=== PATIENT | male | born 1985 ===

== ENCOUNTER 2021-12-20 23:10 | Inpatient (IN) | payer SELFPAY ==
[2021-12-20] MEDS ORDERED: SODIUM CHLORIDE 0.9% 1000 ML 1,000 ML IV ONE (23:19)
[2021-12-20] MEDS ORDERED: diphenhydrAMINE 50 MG/ML VIAL IV ONE (23:19)
[2021-12-20] MEDS ORDERED: methylPREDNISolone Sod Succinate 125 MG/2 ML INJ IV ONE (23:20)
[2021-12-20] MEDS ORDERED: MORPHINE 4 MG/1 ML INJ IV ONE (23:20)
--- NOTE | 2021-12-20 23:32 | Emergency Department Report ---
ED Allergic Reaction HPI - General Chief complaint: Allergic Reaction Stated complaint: ALTERED Time Seen by Provider: 12/20/21 23:19 Source: patient Mode of arrival: Ambulatory Limitations: Language Barrier - History of Present Illness Initial Comments: Patient is a 36-year-old male presenting with complaint of adverse drug reaction. He reportedly received an IM penicillin shot in his left thigh earlier today for a "sore throat "with the exact time unknown. He reportedly collapsed while checking in to the emergency department. He complains of severe 10 out of 10 pain in his left thigh and has noticeable mottling of skin in his thigh and left lower abdomen. He denies shortness of breath, oral swelling or itching. Reports history of buttock injections performed in [place] in 2017. MD Complaint: allergic reaction Exposure: medication Symptoms: other (Pain in left thigh/leg) Treatment Prior to Arrival: none - Related Data Allergies Allergy/AdvReac Type Severity Reaction Status Date / Time No Known Allergies Allergy Verified 12/20/21 23:32 ED Review of Systems ROS: Stated complaint: ALTERED Other details as noted in HPI Constitutional: denies: chills, fever Respiratory: denies: cough, shortness of breath, wheezing Cardiovascular: denies: chest pain, palpitations Gastrointestinal: denies: abdominal pain, nausea, diarrhea ED Past Medical Hx - Social History Smoking Status: Unknown if ever smoked ED Physical Exam - General Limitations: Language Barrier General appearance: alert, in distress - Head Head exam: Present: atraumatic, normocephalic - Eye Eye exam: Present: normal appearance - ENT ENT exam: Present: normal orophraynx, mucous membranes moist - Neck Neck exam: Present: normal inspection - Respiratory Respiratory exam: Present: normal lung sounds bilaterally. Absent: respiratory distress, wheezes - Cardiovascular Cardiovascular Exam: Present: normal rhythm, tachycardia, normal heart sounds - GI/Abdominal GI/Abdominal exam: Present: soft, normal bowel sounds. Absent: tenderness - Rectal Rectal exam: Present: deferred - Neurological Exam Neurological exam: Present: alert, oriented X3, CN II-XII intact - Psychiatric Psychiatric exam: Present: normal affect, normal mood - Skin Skin exam: Present: warm, dry, intact, normal color, rash (Reticular/lacy rash to left lower abdomen and left thigh) ED Course Vital Signs 12/20/21 12/21/21 12/21/21 23:11 00:05 00:08 Temperature 98.6 F Pulse Rate 110 H 92 H Respiratory 24 29 H 36 H Rate Blood Pressure 174/94 Blood Pressure [Right] O2 Sat by Pulse 100 100 Oximetry 12/21/21 12/21/21 12/21/21 00:11 00:12 00:16 Temperature 99.0 F Pulse Rate 92 H 90 Respiratory 30 H 30 H 26 H Rate Blood Pressure 167/102 Blood Pressure 160/103 [Right] O2 Sat by Pulse 100 100 99 Oximetry 12/21/21 12/21/21 12/21/21 00:30 00:35 00:46 Temperature Pulse Rate 91 H 86 Respiratory 21 23 27 H Rate Blood Pressure 170/98 162/99 Blood Pressure [Right] O2 Sat by Pulse 98 100 Oximetry 12/21/21 12/21/21 12/21/21 01:00 01:16 01:30 Temperature Pulse Rate 92 H 97 H 95 H Respiratory 35 H 19 21 Rate Blood Pressure 162/99 162/99 162/99 Blood Pressure [Right] O2 Sat by Pulse 94 98 99 Oximetry 12/21/21 12/21/21 12/21/21 01:46 02:00 02:16 Temperature Pulse Rate 107 H 106 H 109 H Respiratory 32 H 16 15 Rate Blood Pressure 162/99 153/95 146/78 Blood Pressure [Right] O2 Sat by Pulse 99 98 98 Oximetry 12/21/21 12/21/21 12/21/21 02:30 02:46 03:00 Temperature Pulse Rate 109 H 102 H 107 H Respiratory 22 24 13 Rate Blood Pressure 134/72 135/72 147/92 Blood Pressure [Right] O2 Sat by Pulse 97 98 98 Oximetry 12/21/21 12/21/21 12/21/21 03:13 03:16 03:30 Temperature Pulse Rate 104 H 104 H Respiratory 26 H 25 H 32 H Rate Blood Pressure 139/72 138/77 Blood Pressure [Right] O2 Sat by Pulse 84 93 Oximetry 12/21/21 12/21/21 12/21/21 03:43 03:46 03:59 Temperature 98.9 F Pulse Rate 106 H Respiratory 32 H 31 H Rate Blood Pressure 147/78 Blood Pressure [Right] O2 Sat by Pulse 94 Oximetry 12/21/21 12/21/21 12/21/21 04:00 04:16 04:30 Temperature 98.9 F Pulse Rate 105 H 117 H 98 H Respiratory 30 H 23 19 Rate Blood Pressure 143/81 133/79 139/73 Blood Pressure [Right] O2 Sat by Pulse 93 93 94 Oximetry 12/21/21 12/21/21 12/21/21 04:54 05:00 05:16 Temperature Pulse Rate 102 H 104 H 109 H Respiratory 27 H 28 H 21 Rate Blood Pressure 139/73 139/73 140/78 Blood Pressure [Right] O2 Sat by Pulse 96 96 96 Oximetry 12/21/21 05:20 Temperature 98.0 F Pulse Rate Respiratory Rate Blood Pressure Blood Pressure [Right] O2 Sat by Pulse Oximetry ED Medical Decision Making - Lab Data Result diagrams: 12/20/21 23:35 12/20/21 23:35 - Medical Decision Making 36-year-old male presenting with complaint of cute onset left thigh pain. Initial assessment reveals mottling of skin involving the proximal thigh and left lower abdomen. Patient is in severe pain. He was given IV morphine followed by IV Dilaudid. Ultrasound obtained and negative for DVT. WBC count 14,000. CT of the left leg performed. Possibly cellulitis. No drainable fluid collection present. Will start on empiric antibiotics and admit to hospitalist service with surgery consult. Critical care attestation.: If time is entered above; I have spent that time in minutes in the direct care of this critically ill patient, excluding procedure time. ED Disposition Clinical Impression: Left leg pain, Complication of surgery Disposition: ADMITTED INPATIENT Is pt being admited?: Yes Condition: Stable
[2021-12-21] MEDS ORDERED: HYDROmorphone 1 MG/1 ML INJ IV ONE ×2 (00:02→03:05)
[2021-12-21] MEDS ORDERED: HYDROmorphone 1 MG/1 ML INJ ONE ×2 (00:03→16:37)
[2021-12-21 00:23] LABS: Hematocrit 46.9 % (35.5-45.6); Hemoglobin 15.8 gm/dl (11.8-15.2); Mean Corpuscular HGB Conc 34 % (32-34); Mean Corpuscular Volume 98 fl (84-94); Platelet Count 217 K/mm3 (140-440); Red Blood Count 4.77 M/mm3 (3.65-5.03); Red Cell Distribution Width 13.2 % (13.2-15.2)
[2021-12-21 00:28] LABS: Alanine Aminotransferase 31 units/L (7-56); Albumin 4.6 g/dL (3.9-5); BUN/Creatinine Ratio 13; Blood Urea Nitrogen 14 mg/dL (9-20); Calcium 9.3 mg/dL (8.4-10.2); Hemolysis Index 8
[2021-12-21 01:39] LABS: Basophils % (Manual) 0 % (0.0-1.8); Eosinophils % (Manual) 0 % (0.0-4.3); Total Cells Counted 100
[2021-12-21 01:40] LABS: Platelet Estimate Consistent w Auto; RBC Morphology Normal
--- NOTE | 2021-12-21 03:37 | Vascular Lab Report ---
DUPLEX DOPPLER LOWER EXTREMITY VEINS, LEFT INDICATION / CLINICAL INFORMATION: Leg pain. TECHNIQUE: Duplex doppler imaging was performed through the veins of the left lower extremity using v enous compression and other maneuvers. COMPARISON: None available. FINDINGS: LEFT COMMON FEMORAL VEIN: Negative. LEFT FEMORAL VEIN: Negative. LEFT POPLITEAL VEIN: Negative. LEFT CALF VEINS: Negative. ADDITIONAL FINDINGS: None. IMPRESSION: 1. No sonographic evidence for DVT in the left lower extremity. Signer Name: Anthony Pina II, MD Signed: 12/21/2021 3:33 AM Workstation Name: [id number]
--- NOTE | 2021-12-21 05:23 | Cat Scan Report ---
CT lower extremity LT w con INDICATION / CLINICAL INFORMATION: Pt complains of LEFT lower extremity pain, discoloration since hav ing a Penicillin Shot yesterday. COMPARISON: None available. TECHNIQUE: Following administration of 100 cc Omnipaque 350 intravenous contrast, CT imaging of the l eft hip and femur was performed. In addition to axial source images, coronal and sagittal MPR series were provided. All CT scans at this location are performed using CT dose reduction for ALARA by means of automated exposure control. FINDINGS: Particular attenuation subcutaneous fat is demonstrated posteriorly and posterolaterally around the g luteus medius muscle. Somewhat more nodular foci of attenuation are present as is minimal dermal thic kening. Otherwise, no significant abnormality of the included musculature, osseous structures, or int ra-abdominal/intrapelvic structures. IMPRESSION: 1. The appearance of the posterior soft tissues could reflect evidence of cellulitis with small subcu taneous lymph nodes. No drainable fluid collections are present. Contusion could have a similar appea kang. Correlation recommended. Signer Name: Anthony Pina II, MD Signed: 12/21/2021 5:19 AM Workstation Name: [id number]
[2021-12-21] MEDS ORDERED: PIPERACILLIN/TAZOBACTAM 3.375 3.375 GM/50 ML BAG IV ONE (05:55)
[2021-12-21] MEDS ORDERED: ALBUTEROL 2.5 MG/3 ML NEBU IH PRN (06:15)
--- NOTE | 2021-12-21 06:21 | History and Physical Report ---
History of Present Illness Date of examination: 12/21/21 Date of admission: 12/21/21 Chief complaint: Allergic reaction Left leg pain Complication of surgery History of present illness: 36-year-old male with no significant past medical history was brought to the emergency room because of adverse drug reaction. He reportedly received an IM penicillin shot in his left thigh earlier today for a "sore throat "with the exact time unknown. He reportedly collapsed while checking in to the emergency department. He complains of severe 10 out of 10 pain in his left thigh and has noticeable mottling of skin in his thigh and left lower abdomen. He denies shortness of breath, oral swelling or itching. Reports history of buttock injections performed in [place] in 2017. CT of the left leg performed. Possibly cellulitis. No drainable fluid collection present. Will start on empiric antibiotics and admit to hospitalist service with surgery consult. Past History Past Surgical History: Other (Buttock injection performed in [place] in 2016) Social history: other (Unknown) Family history: no significant family history Medications and Allergies Allergies Allergy/AdvReac Type Severity Reaction Status Date / Time No Known Allergies Allergy Verified 12/20/21 23:32 Active Meds: Active Medications Piperacillin Sod/Tazobactam Sod (Zosyn/Ns 3.375gm/50ml) 3.375 gm in 50 mls @ 100 mls/hr IV ONCE ONE; Protocol Stop: 12/21/21 06:24 Review of Systems All systems: negative Constitutional: other (Mottling of the skin in the thigh and left lower abdomen) Exam - Constitutional Vitals: Temp Pulse Resp BP Pulse Ox 98.0 F 109 H 21 140/78 96 12/21/21 05:20 12/21/21 05:16 12/21/21 05:16 12/21/21 05:16 12/21/21 05:16 General appearance: Present: no acute distress, well-nourished - EENT Eyes: Present: PERRL ENT: hearing intact, clear oral mucosa - Neck Neck: Present: supple, normal ROM - Respiratory Respiratory effort: normal Respiratory: bilateral: CTA - Cardiovascular Heart Sounds: Present: S1 & S2. Absent: rub, click - Extremities Extremities: pulses symmetrical, No edema Peripheral Pulses: within normal limits - Abdominal General gastrointestinal: Present: soft, non-tender, non-distended, normal bowel sounds Male genitourinary: Present: normal - Integumentary Integumentary: Present: clear, warm, dry - Musculoskeletal Musculoskeletal: gait normal, strength equal bilaterally - Psychiatric Psychiatric: appropriate mood/affect, intact judgment & insight - Neurologic Neurologic: CNII-XII intact, moves all extremities Results - Labs CBC & Chem 7: 12/20/21 23:35 12/20/21 23:35 Labs: Laboratory Last Values WBC 14.0 K/mm3 (4.5-11.0) H 12/20/21 23:35 RBC 4.77 M/mm3 (3.65-5.03) 12/20/21 23:35 Hgb 15.8 gm/dl (11.8-15.2) H 12/20/21 23:35 Hct 46.9 % (35.5-45.6) H 12/20/21 23:35 MCV 98 fl (84-94) H 12/20/21 23:35 MCH 33 pg (28-32) H 12/20/21 23:35 MCHC 34 % (32-34) 12/20/21 23:35 RDW 13.2 % (13.2-15.2) 12/20/21 23:35 Plt Count 217 K/mm3 (140-440) 12/20/21 23:35 Lymph # (Auto) [employer] 12/20/21 23:35 Add Manual Diff Complete 12/20/21 23:35 Total Counted 100 12/20/21 23:35 Seg Neuts % (Manual) 52.0 % (40.0-70.0) 12/20/21 23:35 Band Neutrophils % 0 % 12/20/21 23:35 Lymphocytes % (Manual) 41.0 % (13.4-35.0) H 12/20/21 23:35 Reactive Lymphs % (Man) 0 % 12/20/21 23:35 Monocytes % (Manual) 7.0 % (0.0-7.3) 12/20/21 23:35 Eosinophils % (Manual) 0 % (0.0-4.3) 12/20/21 23:35 Basophils % (Manual) 0 % (0.0-1.8) 12/20/21 23:35 Metamyelocytes % 0 % 12/20/21 23:35 Myelocytes % 0 % 12/20/21 23:35 Promyelocytes % 0 % 12/20/21 23:35 Blast Cells % 0 % 12/20/21 23:35 Nucleated RBC % Not Reportable 12/20/21 23:35 Seg Neutrophils # Man 7.3 K/mm3 (1.8-7.7) 12/20/21 23:35 Band Neutrophils # 0.0 K/mm3 12/20/21 23:35 Lymphocytes # (Manual) 5.7 K/mm3 (1.2-5.4) H 12/20/21 23:35 Abs React Lymphs (Man) 0.0 K/mm3 12/20/21 23:35 Monocytes # (Manual) 1.0 K/mm3 (0.0-0.8) H 12/20/21 23:35 Eosinophils # (Manual) 0.0 K/mm3 (0.0-0.4) 12/20/21 23:35 Basophils # (Manual) 0.0 K/mm3 (0.0-0.1) 12/20/21 23:35 Metamyelocytes # 0.0 K/mm3 12/20/21 23:35 Myelocytes # 0.0 K/mm3 12/20/21 23:35 Promyelocytes # 0.0 K/mm3 12/20/21 23:35 Blast Cells # 0.0 K/mm3 12/20/21 23:35 WBC Morphology Not Reportable 12/20/21 23:35 Hypersegmented Neuts Not Reportable 12/20/21 23:35 Hyposegmented Neuts Not Reportable 12/20/21 23:35 Hypogranular Neuts Not Reportable 12/20/21 23:35 Smudge Cells Not Reportable 12/20/21 23:35 Toxic Granulation Not Reportable 12/20/21 23:35 Toxic Vacuolation Not Reportable 12/20/21 23:35 Dohle Bodies Not Reportable 12/20/21 23:35 Pelger-Huet Anomaly Not Reportable 12/20/21 23:35 [place] Rods Not Reportable 12/20/21 23:35 Platelet Estimate Consistent w auto 12/20/21 23:35 Clumped Platelets Not Reportable 12/20/21 23:35 Plt Clumps, EDTA Not Reportable 12/20/21 23:35 Large Platelets Not Reportable 12/20/21 23:35 Giant Platelets Not Reportable 12/20/21 23:35 Platelet Satelliting Not Reportable 12/20/21 23:35 Plt Morphology Comment Not Reportable 12/20/21 23:35 RBC Morphology Normal 12/20/21 23:35 Dimorphic RBCs Not Reportable 12/20/21 23:35 Polychromasia Not Reportable 12/20/21 23:35 Hypochromasia Not Reportable 12/20/21 23:35 Poikilocytosis Not Reportable 12/20/21 23:35 Anisocytosis Not Reportable 12/20/21 23:35 Microcytosis Not Reportable 12/20/21 23:35 Macrocytosis Not Reportable 12/20/21 23:35 Spherocytes Not Reportable 12/20/21 23:35 Pappenheimer Bodies Not Reportable 12/20/21 23:35 Sickle Cells Not Reportable 12/20/21 23:35 Target Cells Not Reportable 12/20/21 23:35 Tear Drop Cells Not Reportable 12/20/21 23:35 Ovalocytes Not Reportable 12/20/21 23:35 Helmet Cells Not Reportable 12/20/21 23:35 [place] Bodies Not Reportable 12/20/21 23:35 [place] Rings Not Reportable 12/20/21 23:35 [place] Cells Not Reportable 12/20/21 23:35 Bite Cells Not Reportable 12/20/21 23:35 Crenated Cell Not Reportable 12/20/21 23:35 Elliptocytes Not Reportable 12/20/21 23:35 Acanthocytes (Spur) Not Reportable 12/20/21 23:35 Rouleaux Not Reportable 12/20/21 23:35 Hemoglobin C Crystals Not Reportable 12/20/21 23:35 Schistocytes Not Reportable 12/20/21 23:35 Malaria parasites Not Reportable 12/20/21 23:35 [place] Bodies Not Reportable 12/20/21 23:35 Hem Pathologist Commnt No 12/20/21 23:35 Sodium 139 mmol/L (137-145) 12/20/21 23:35 Potassium 3.3 mmol/L (3.6-5.0) L 12/20/21 23:35 Chloride 99.3 mmol/L (98-107) 12/20/21 23:35 Carbon Dioxide 18 mmol/L (22-30) L 12/20/21 23:35 Anion Gap 25 mmol/L 12/20/21 23:35 BUN 14 mg/dL (9-20) 12/20/21 23:35 Creatinine 1.1 mg/dL (0.8-1.3) 12/20/21 23:35 Estimated GFR > 60 ml/min 12/20/21 23:35 BUN/Creatinine Ratio 13 % 12/20/21 23:35 Glucose 171 mg/dL (75-100) H 12/20/21 23:35 Calcium 9.3 mg/dL (8.4-10.2) 12/20/21 23:35 Total Bilirubin 0.40 mg/dL (0.1-1.2) 12/20/21 23:35 AST 31 units/L (5-40) 12/20/21 23:35 ALT 31 units/L (7-56) 12/20/21 23:35 Alkaline Phosphatase 86 units/L (35-129) 12/20/21 23:35 Total Protein 7.2 g/dL (6.3-8.2) 12/20/21 23:35 Albumin 4.6 g/dL (3.9-5) 12/20/21 23:35 Albumin/Globulin Ratio 1.8 % 12/20/21 23:35 Assessment and Plan VTE prophylaxis?: Chemical Plan of care discussed with patient/family: Yes - Patient Problems (1) Left leg cellulitis Current Visit: Yes Status: Acute Plan to address problem: Admit the patient to the medical floor. Levaquin 750 mg IV daily. Half-normal saline at the rate of 125 cc/h. Surgery evaluation. Recheck CBC in the morning (2) Allergic reaction Current Visit: Yes Status: Acute Plan to address problem: Pepcid 20 mg IV every 12 hours. Benadryl 25 mg IV every 6 hours as needed. If needed will start on Solu-Medrol. Consult dermatology if needed (3) Complication of surgery Current Visit: Yes Status: Acute Plan to address problem: Levaquin 750 mg IV daily. Half-normal saline at the rate of 125 cc/h. Surgery evaluation. Recheck CBC in the morning (4) Left leg pain Current Visit: Yes Status: Acute Plan to address problem: Tylenol 650 mg p.o. every 6 hours as needed. Morphine 2 mg IV every 4 hours as needed (5) DVT prophylaxis Current Visit: Yes Status: Acute Plan to address problem: Heparin 5000 units subcu every 12 hours for DVT prophylaxis. Pepcid 20 mg IV every 12 hours for GI prophylaxis. Patient is a full code
[2021-12-21] MEDS: MORPHINE 2 MG/1 ML INJ IV PRN (06:48)
[2021-12-21] MEDS: HYDROmorphone 1 MG/1 ML INJ IV PRN ×5 (08:07→22:11)
[2021-12-21] MEDS: FAMOTIDINE 20 MG/2 ML INJ IV SCH ×2 (11:41→22:07)
[2021-12-21] MEDS: HEPARIN 5,000 UNIT/1 ML VIAL SUB-Q SCH ×2 (11:42→22:07)
--- NOTE | 2021-12-21 12:02 | Consultation ---
History of Present Illness - Reason for Consult Consult date: 12/21/21 LLE mottling Requesting physician: ALEXANDRA LUIS - History of Present Illness 36-year-old male who appears to be mixed gender/undergoing gender transformation with previous history of silicone injections in the buttocks who recently had a sore throat and decided to inject his left thigh with a 5 mL container of Rocephin with lidocaine. Afterwards he had significant pain with mottling of this thigh and left abdomen. The left abdominal mottling has improved. The left thigh mottling is still present and has now extended to the calf. The patient has no significant pain at this time with pressure applied to the left thigh and left calf with no complaints of pain. There is numbness of part of the left calf and foot with foot drop and inability to move the toes. This is worsened since earlier today. Palpable pedal pulses bilaterally. Venous ultrasound demonstrates no DVT. CT demonstrates no collections. No crepitus in the skin. There is some left thigh and left calf mottling but temperature is normal. Past History Past Surgical History: Other (Buttock injection performed in [place] in 2017) Social history: other (Unknown) Family history: no significant family history Medications and Allergies Allergies Allergy/AdvReac Type Severity Reaction Status Date / Time Penicillins Allergy Unknown Verified 12/21/21 07:27 Active Meds: Active Medications Acetaminophen (Acetaminophen 325 Mg Tab) 650 mg PO Q4H PRN PRN Reason: Pain MILD(1-3)/Fever >100.5/LEVINE Albuterol (Albuterol 2.5 Mg/3 Ml Nebu) 2.5 mg IH Q3HRT PRN PRN Reason: Shortness Of Breath Albuterol/Ipratropium (Ipratropium/Albuterol Sulfate 3 Ml Ampul.Neb) 1 ampul IH Q6HRT [facility] Diphenhydramine HCl (Diphenhydramine 50 Mg/Ml Vial) 25 mg IV Q6H PRN PRN Reason: Skin Irritation Famotidine (Famotidine 20 Mg/2 Ml Inj) 20 mg IV BID [facility] Last Admin: 12/21/21 11:41 Dose: Not Given Heparin Sodium (Porcine) (Heparin 5,000 Unit/1 Ml Vial) 5,000 unit SUB-Q Q12HR [facility] Last Admin: 12/21/21 11:42 Dose: Not Given Hydromorphone HCl (Hydromorphone 1 Mg/1 Ml Inj) 0.5 mg IV Q3H PRN PRN Reason: Pain , Severe (7-10) Last Admin: 12/21/21 08:07 Dose: 0.5 mg Sodium Chloride (Nacl 0.45% 1000 Ml) 1,000 mls @ 125 mls/hr IV DIRECT [facility] Levofloxacin/Dextrose (Levaquin 750mg/150ml) 750 mg in 150 mls @ 100 mls/hr IV Q24H [facility]; Protocol Last Admin: 12/21/21 08:06 Dose: 100 mls/hr Morphine Sulfate (Morphine 2 Mg/1 Ml Inj) 2 mg IV Q4H PRN PRN Reason: Pain, Moderate (4-6) Last Admin: 12/21/21 06:48 Dose: 2 mg Ondansetron HCl (Ondansetron 4 Mg/2 Ml Inj) 4 mg IV Q8H PRN PRN Reason: Nausea And Vomiting Sodium Chloride (Sodium Chloride 0.9% 10 Ml Flush Syringe) 10 ml IV BID [facility] Last Admin: 12/21/21 11:42 Dose: Not Given Sodium Chloride (Sodium Chloride 0.9% 10 Ml Flush Syringe) 10 ml IV PRN PRN PRN Reason: LINE FLUSH Review of Systems All systems: negative (see HPI) Exam - Constitutional Vitals: Temp Pulse Resp BP Pulse Ox 98.0 F 111 H 26 H 143/90 95 12/21/21 05:20 12/21/21 11:30 12/21/21 11:30 12/21/21 11:30 12/21/21 11:30 General appearance: Present: no acute distress - EENT Eyes: Present: EOM intact ENT: hearing intact - Respiratory Respiratory effort: normal - Extremities Extremities: normal temperature, abnormal (see HPI) - Abdominal General gastrointestinal: Present: soft, non-tender, other (no mottling) - Psychiatric Psychiatric: appropriate mood/affect, cooperative - Neurologic Neurologic: focal deficits (left calf neuropathy) Results - Labs CBC & Chem 7: 12/20/21 23:35 12/20/21 23:35 Labs: Abnormal lab results 12/20/21 12/20/21 Range/Units 23:35 23:35 WBC 14.0 H (4.5-11.0) K/mm3 Hgb 15.8 H (11.8-15.2) gm/dl Hct 46.9 H (35.5-45.6) % MCV 98 H (84-94) fl MCH 33 H (28-32) pg Lymphocytes % (Manual) 41.0 H (13.4-35.0) % Lymphocytes # (Manual) 5.7 H (1.2-5.4) K/mm3 Monocytes # (Manual) 1.0 H (0.0-0.8) K/mm3 Potassium 3.3 L (3.6-5.0) mmol/L Carbon Dioxide 18 L (22-30) mmol/L Glucose 171 H (75-100) mg/dL Assessment and Plan 36-year-old male with allergic reaction to Rocephin injected yesterday who now has mottling of the left abdomen which resolved and mottling of the left thigh w hich has worsened to the left calf. The left calf is soft and not painful. No compartment syndrome. There is a mottling that happen near immediately after the injection per patient which occurred on the left abdomen and left thigh and has progressed on the left lower extremity but resolved on the left abdomen. Suspect allergic reaction as it occurred near immediately. Infection is less likely as this would not occur immediately and would have more pain associated with it as the patient does not complain of any discomfort with deep palpation and superficial palpation of the left leg. 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 Unclear cause of the neuropathy. Could be allergic reaction as well. Consider neurology consult. Recommend aggressive treatment for presumed allergic reaction.
--- NOTE | 2021-12-21 12:06 | Progress Note ---
Assessment and Plan Assessment and plan: --Left lower extremity cellulitis Elevate the limb, empiric antibiotics cultures, cultures Supportive care --Possible allergic reaction ; to Rocephin Continue Benadryl, high-dose steroids, Pepcid Supportive care -- Possible compartment syndrome ; Elevate the limb, IV antibiotics, vascular/IR consulted, discussed with Dr. Swann IR evaluated, CT lower extremity findings reviewed Left lower extremity arterial Doppler, venous Doppler reviewed --Left leg severe pain; Pain medications, elevate the limb, supportive care --Transaminitis/acute hepatic injury; Monitor liver function tests, Ultrasound abdomen GI consult, acute hepatitis panel --DVT prophylaxis Subcu Heparin 5000 held pending's vascular procedure --obesity; BMI 30.7; Patient needs weight reduction when medically stable -- Full CODE STATUS; We will closely monitor the patient and adjust management as needed Plan of care reviewed with the patient, family member at the bedside and the nurse I discussed extensively with vascular/IR Dr. Swann I also informed neurology Dr. Joe Aguilar Patient will be closely observed in IMCU overnight postprocedure per vascular recommendations. History Interval history: I have seen and examined the patient at the bedside, this morning patient's chart and medications reviewed patient was admitted with Left lower extremity cellulitis/allergic reaction to some intramuscular injection. Patient complains of severe pain in the right lower extremity Patient is in mild distress vital signs reviewed Hospitalist Physical - Constitutional Vitals: Temp Pulse Resp BP Pulse Ox 98.0 F 111 H 26 H 143/90 95 12/21/21 05:20 12/21/21 11:30 12/21/21 11:30 12/21/21 11:30 12/21/21 11:30 General appearance: Present: mild distress, well-nourished, obese - EENT Eyes: Present: PERRL, EOM intact ENT: hearing intact, clear oral mucosa - Neck Neck: Present: supple, normal ROM - Respiratory Respiratory effort: normal Respiratory: bilateral: diminished, negative: rales, rhonchi, wheezing - Cardiovascular Rhythm: regular Heart Sounds: Present: S1 & S2 - Extremities Extremities: abnormal (Left lower extremity swelling, erythema and mottling, tender to palpation) Extremity abnormal: other (Unable to move left toes and foot) - Abdominal General gastrointestinal: soft, non-tender, non-distended, normal bowel sounds - Integumentary Integumentary: Present: clear, warm - Psychiatric Psychiatric: appropriate mood/affect, cooperative - Neurologic Neurologic: other (Left lower extremity neuropathy, unable to move left foot and toes) Results - Labs CBC & Chem 7: 12/21/21 13:30 12/21/21 13:30 Labs: Laboratory Last Values WBC 14.0 K/mm3 (4.5-11.0) H 12/20/21 23:35 RBC 4.77 M/mm3 (3.65-5.03) 12/20/21 23:35 Hgb 15.8 gm/dl (11.8-15.2) H 12/20/21 23:35 Hct 46.9 % (35.5-45.6) H 12/20/21 23:35 MCV 98 fl (84-94) H 12/20/21 23:35 MCH 33 pg (28-32) H 12/20/21 23:35 MCHC 34 % (32-34) 12/20/21 23:35 RDW 13.2 % (13.2-15.2) 12/20/21 23:35 Plt Count 217 K/mm3 (140-440) 12/20/21 23:35 Lymph # (Auto) Primary Care Coordinator 12/20/21 23:35 Add Manual Diff Complete 12/20/21 23:35 Total Counted 100 12/20/21 23:35 Seg Neuts % (Manual) 52.0 % (40.0-70.0) 12/20/21 23:35 Band Neutrophils % 0 % 12/20/21 23:35 Lymphocytes % (Manual) 41.0 % (13.4-35.0) H 12/20/21 23:35 Reactive Lymphs % (Man) 0 % 12/20/21 23:35 Monocytes % (Manual) 7.0 % (0.0-7.3) 12/20/21 23:35 Eosinophils % (Manual) 0 % (0.0-4.3) 12/20/21 23:35 Basophils % (Manual) 0 % (0.0-1.8) 12/20/21 23:35 Metamyelocytes % 0 % 12/20/21 23:35 Myelocytes % 0 % 12/20/21 23:35 Promyelocytes % 0 % 12/20/21 23:35 Blast Cells % 0 % 12/20/21 23:35 Nucleated RBC % Not Reportable 12/20/21 23:35 Seg Neutrophils # Man 7.3 K/mm3 (1.8-7.7) 12/20/21 23:35 Band Neutrophils # 0.0 K/mm3 12/20/21 23:35 Lymphocytes # (Manual) 5.7 K/mm3 (1.2-5.4) H 12/20/21 23:35 Abs React Lymphs (Man) 0.0 K/mm3 12/20/21 23:35 Monocytes # (Manual) 1.0 K/mm3 (0.0-0.8) H 12/20/21 23:35 Eosinophils # (Manual) 0.0 K/mm3 (0.0-0.4) 12/20/21 23:35 Basophils # (Manual) 0.0 K/mm3 (0.0-0.1) 12/20/21 23:35 Metamyelocytes # 0.0 K/mm3 12/20/21 23:35 Myelocytes # 0.0 K/mm3 12/20/21 23:35 Promyelocytes # 0.0 K/mm3 12/20/21 23:35 Blast Cells # 0.0 K/mm3 12/20/21 23:35 WBC Morphology Not Reportable 12/20/21 23:35 Hypersegmented Neuts Not Reportable 12/20/21 23:35 Hyposegmented Neuts Not Reportable 12/20/21 23:35 Hypogranular Neuts Not Reportable 12/20/21 23:35 Smudge Cells Not Reportable 12/20/21 23:35 Toxic Granulation Not Reportable 12/20/21 23:35 Toxic Vacuolation Not Reportable 12/20/21 23:35 Dohle Bodies Not Reportable 12/20/21 23:35 Pelger-Huet Anomaly Not Reportable 12/20/21 23:35 [place] Rods Not Reportable 12/20/21 23:35 Platelet Estimate Consistent w auto 12/20/21 23:35 Clumped Platelets Not Reportable 12/20/21 23:35 Plt Clumps, EDTA Not Reportable 12/20/21 23:35 Large Platelets Not Reportable 12/20/21 23:35 Giant Platelets Not Reportable 12/20/21 23:35 Platelet Satelliting Not Reportable 12/20/21 23:35 Plt Morphology Comment Not Reportable 12/20/21 23:35 RBC Morphology Normal 12/20/21 23:35 Dimorphic RBCs Not Reportable 12/20/21 23:35 Polychromasia Not Reportable 12/20/21 23:35 Hypochromasia Not Reportable 12/20/21 23:35 Poikilocytosis Not Reportable 12/20/21 23:35 Anisocytosis Not Reportable 12/20/21 23:35 Microcytosis Not Reportable 12/20/21 23:35 Macrocytosis Not Reportable 12/20/21 23:35 Spherocytes Not Reportable 12/20/21 23:35 Pappenheimer Bodies Not Reportable 12/20/21 23:35 Sickle Cells Not Reportable 12/20/21 23:35 Target Cells Not Reportable 12/20/21 23:35 Tear Drop Cells Not Reportable 12/20/21 23:35 Ovalocytes Not Reportable 12/20/21 23:35 Helmet Cells Not Reportable 12/20/21 23:35 [place] Bodies Not Reportable 12/20/21 23:35 [place] Rings Not Reportable 12/20/21 23:35 [place] Cells Not Reportable 12/20/21 23:35 Bite Cells Not Reportable 12/20/21 23:35 Crenated Cell Not Reportable 12/20/21 23:35 Elliptocytes Not Reportable 12/20/21 23:35 Acanthocytes (Spur) Not Reportable 12/20/21 23:35 Rouleaux Not Reportable 12/20/21 23:35 Hemoglobin C Crystals Not Reportable 12/20/21 23:35 Schistocytes Not Reportable 12/20/21 23:35 Malaria parasites Not Reportable 12/20/21 23:35 [place] Bodies Not Reportable 12/20/21 23:35 Hem Pathologist Commnt No 12/20/21 23:35 Sodium 139 mmol/L (137-145) 12/20/21 23:35 Potassium 3.3 mmol/L (3.6-5.0) L 12/20/21 23:35 Chloride 99.3 mmol/L (98-107) 12/20/21 23:35 Carbon Dioxide 18 mmol/L (22-30) L 12/20/21 23:35 Anion Gap 25 mmol/L 12/20/21 23:35 BUN 14 mg/dL (9-20) 12/20/21 23:35 Creatinine 1.1 mg/dL (0.8-1.3) 12/20/21 23:35 Estimated GFR > 60 ml/min 12/20/21 23:35 BUN/Creatinine Ratio 13 % 12/20/21 23:35 Glucose 171 mg/dL (75-100) H 12/20/21 23:35 Calcium 9.3 mg/dL (8.4-10.2) 12/20/21 23:35 Total Bilirubin 0.40 mg/dL (0.1-1.2) 12/20/21 23:35 AST 31 units/L (5-40) 12/20/21 23:35 ALT 31 units/L (7-56) 12/20/21 23:35 Alkaline Phosphatase 86 units/L (35-129) 12/20/21 23:35 Total Protein 7.2 g/dL (6.3-8.2) 12/20/21 23:35 Albumin 4.6 g/dL (3.9-5) 12/20/21 23:35 Albumin/Globulin Ratio 1.8 % 12/20/21 23:35 Active Medications - Current Medications Current Medications: Generic Name Dose Route Start Last Admin Trade Name Freq PRN Reason Stop Dose Admin Acetaminophen 650 mg 12/21/21 06:15 Acetaminophen 325 Mg Tab PO Q4H PRN Pain MILD(1-3)/Fever >100.5/LEVINE Albuterol 2.5 mg 12/21/21 06:15 Albuterol 2.5 Mg/3 Ml Nebu IH Q3HRT PRN Shortness Of Breath Albuterol/Ipratropium 1 ampul 12/21/21 08:00 Ipratropium/Albuterol Sulfate 3 Ml Ampul.Neb IH Q6HRT VLADIMIR Diphenhydramine HCl 25 mg 12/21/21 06:24 Diphenhydramine 50 Mg/Ml Vial IV Q6H PRN Skin Irritation Famotidine 20 mg 12/21/21 10:00 12/21/21 11:41 Famotidine 20 Mg/2 Ml Inj IV Not Given BID VLADIMIR Heparin Sodium (Porcine) 5,000 unit 12/21/21 10:00 12/21/21 11:42 Heparin 5,000 Unit/1 Ml Vial SUB-Q Not Given Q12HR VLADIMIR Hydromorphone HCl 0.5 mg 12/21/21 06:15 12/21/21 08:07 Hydromorphone 1 Mg/1 Ml Inj IV 0.5 mg Q3H PRN Administration Pain , Severe (7-10) Sodium Chloride 1,000 mls @ 125 mls/hr 12/21/21 07:00 Nacl 0.45% 1000 Ml IV DIRECT VLADIMIR Levofloxacin/Dextrose 750 mg in 150 mls @ 100 mls/hr 12/21/21 07:00 12/21/21 08:06 Levaquin 750mg/150ml IV 100 mls/hr Q24H VLADIMIR Administration Protocol Morphine Sulfate 2 mg 12/21/21 06:15 12/21/21 06:48 Morphine 2 Mg/1 Ml Inj IV 2 mg Q4H PRN Administration Pain, Moderate (4-6) Ondansetron HCl 4 mg 12/21/21 06:15 Ondansetron 4 Mg/2 Ml Inj IV Q8H PRN Nausea And Vomiting Sodium Chloride 10 ml 12/21/21 10:00 12/21/21 11:42 Sodium Chloride 0.9% 10 Ml Flush Syringe IV Not Given BID VLADIMIR Sodium Chloride 10 ml 12/21/21 06:15 Sodium Chloride 0.9% 10 Ml Flush Syringe IV PRN PRN LINE FLUSH
--- NOTE | 2021-12-21 12:27 | Consultation ---
History of Present Illness Consult date: 12/21/21 - History of present illness History of present illness: 36 year old transgender female presents to the ER within a few hours after injecting Rocephin into her left thigh to treat a throat infection last night. She said within 2 minutes after the injection she noticed skin changes on her left side starting from her lower abdomen down her leg. She says she began to have leg pain. She rates the pain between 6 and 8 out of 10. She recently since she has been admitted noticed loss of sensation and decreased motor ability distal to her left ankle. She denies any nausea vomiting or difficulty breathing. General surgery was called for consultation. I asked him to get a CAT scan of her left leg. CT scan showed no fluid collections. Past History Past Surgical History: Other (Buttock injection performed in [place] in 2017 (silicone?), breast implants) Social history: other (Unknown) Family history: no significant family history Medications and Allergies Allergies Allergy/AdvReac Type Severity Reaction Status Date / Time Penicillins Allergy Unknown Verified 12/21/21 07:27 Active Meds: Active Medications Acetaminophen (Acetaminophen 325 Mg Tab) 650 mg PO Q4H PRN PRN Reason: Pain MILD(1-3)/Fever >100.5/LEVINE Albuterol (Albuterol 2.5 Mg/3 Ml Nebu) 2.5 mg IH Q3HRT PRN PRN Reason: Shortness Of Breath Albuterol/Ipratropium (Ipratropium/Albuterol Sulfate 3 Ml Ampul.Neb) 1 ampul IH Q6HRT [facility] Diphenhydramine HCl (Diphenhydramine 50 Mg/Ml Vial) 25 mg IV Q6H PRN PRN Reason: Skin Irritation Famotidine (Famotidine 20 Mg/2 Ml Inj) 20 mg IV BID [facility] Last Admin: 12/21/21 11:41 Dose: Not Given Heparin Sodium (Porcine) (Heparin 5,000 Unit/1 Ml Vial) 5,000 unit SUB-Q Q12HR [facility] Last Admin: 12/21/21 11:42 Dose: Not Given Hydromorphone HCl (Hydromorphone 1 Mg/1 Ml Inj) 0.5 mg IV Q3H PRN PRN Reason: Pain , Severe (7-10) Last Admin: 12/21/21 08:07 Dose: 0.5 mg Sodium Chloride (Nacl 0.45% 1000 Ml) 1,000 mls @ 125 mls/hr IV DIRECT VLADIMIR Levofloxacin/Dextrose (Levaquin 750mg/150ml) 750 mg in 150 mls @ 100 mls/hr IV Q24H [facility]; Protocol Last Admin: 12/21/21 08:06 Dose: 100 mls/hr Morphine Sulfate (Morphine 2 Mg/1 Ml Inj) 2 mg IV Q4H PRN PRN Reason: Pain, Moderate (4-6) Last Admin: 12/21/21 06:48 Dose: 2 mg Ondansetron HCl (Ondansetron 4 Mg/2 Ml Inj) 4 mg IV Q8H PRN PRN Reason: Nausea And Vomiting Sodium Chloride (Sodium Chloride 0.9% 10 Ml Flush Syringe) 10 ml IV BID [facility] Last Admin: 12/21/21 11:42 Dose: Not Given Sodium Chloride (Sodium Chloride 0.9% 10 Ml Flush Syringe) 10 ml IV PRN PRN PRN Reason: LINE FLUSH PreP Review of Systems All systems: negative - Muskuloskeletal limitation of motion - Integumentary color changes Exam Vital Signs Temp Pulse Resp BP Pulse Ox 98.6 F 110 H 24 174/94 100 12/20/21 23:11 12/20/21 23:11 12/20/21 23:11 12/20/21 23:11 12/20/21 23:11 - General physical appearance Positive: well developed, no distress, no pain - Eyes Positive: PERRL - ENT Positive: no hearing loss - Respiratory Positive: normal expansion, normal respiratory effort - Cardiovascular Heart Sounds: Present: S1 & S2 - Extremities Extremities: abnormal (Left leg with patchy mottling from the thigh down to the foot. Easily palpable DP, PT pulses. Patient has full sensation down to the ankle, foot has decreased sensation to both pain and unable to move toes. Patient is able to lift her leg from the hip and bend at the knee without difficulty. ) Extremity abnormal: other (Slight swelling on left leg compared to right. All compartments are soft to palpation. Patient able to tolerate deep palpation without difficulty.) Results - Labs 12/20/21 23:35 12/20/21 23:35 Abnormal lab results 12/20/21 12/20/21 Range/Units 23:35 23:35 WBC 14.0 H (4.5-11.0) K/mm3 Hgb 15.8 H (11.8-15.2) gm/dl Hct 46.9 H (35.5-45.6) % MCV 98 H (84-94) fl MCH 33 H (28-32) pg Lymphocytes % (Manual) 41.0 H (13.4-35.0) % Lymphocytes # (Manual) 5.7 H (1.2-5.4) K/mm3 Monocytes # (Manual) 1.0 H (0.0-0.8) K/mm3 Potassium 3.3 L (3.6-5.0) mmol/L Carbon Dioxide 18 L (22-30) mmol/L Glucose 171 H (75-100) mg/dL Diabetes panel 12/20/21 Range/Units 23:35 Sodium 139 (137-145) mmol/L Potassium 3.3 L (3.6-5.0) mmol/L Chloride 99.3 (98-107) mmol/L Carbon Dioxide 18 L (22-30) mmol/L BUN 14 (9-20) mg/dL Creatinine 1.1 (0.8-1.3) mg/dL Glucose 171 H (75-100) mg/dL Calcium 9.3 (8.4-10.2) mg/dL AST 31 (5-40) units/L ALT 31 (7-56) units/L Alkaline Phosphatase 86 (35-129) units/L Total Protein 7.2 (6.3-8.2) g/dL Albumin 4.6 (3.9-5) g/dL Calcium panel 12/20/21 Range/Units 23:35 Calcium 9.3 (8.4-10.2) mg/dL Albumin 4.6 (3.9-5) g/dL Pituitary panel 12/20/21 Range/Units 23:35 Sodium 139 (137-145) mmol/L Potassium 3.3 L (3.6-5.0) mmol/L Chloride 99.3 (98-107) mmol/L Carbon Dioxide 18 L (22-30) mmol/L BUN 14 (9-20) mg/dL Creatinine 1.1 (0.8-1.3) mg/dL Glucose 171 H (75-100) mg/dL Calcium 9.3 (8.4-10.2) mg/dL Adrenal panel 12/20/21 Range/Units 23:35 Sodium 139 (137-145) mmol/L Potassium 3.3 L (3.6-5.0) mmol/L Chloride 99.3 (98-107) mmol/L Carbon Dioxide 18 L (22-30) mmol/L BUN 14 (9-20) mg/dL Creatinine 1.1 (0.8-1.3) mg/dL Glucose 171 H (75-100) mg/dL Calcium 9.3 (8.4-10.2) mg/dL Total Bilirubin 0.40 (0.1-1.2) mg/dL AST 31 (5-40) units/L ALT 31 (7-56) units/L Alkaline Phosphatase 86 (35-129) units/L Total Protein 7.2 (6.3-8.2) g/dL Albumin 4.6 (3.9-5) g/dL Assessment and Plan 36-year-old with left lower extremity skin mottling and decreased distal sensation and motor skills secondary to self injection of Rocephin. Unclear etiology of sensory motor deficit. Possibly due to allergic reaction. Do not believe there is an infectious process, there were no fluid collections to drain requiring surgical intervention. Discussed case with Dr. Swann who did a vascular evaluation who believes is unlikely the patient has compartment syndrome as a likely cause of neurological deficit. He said he will reevaluate the patient. No acute surgical intervention indicated at this time. Agree with his recommendation of supportive care for allergic reaction.
--- NOTE | 2021-12-21 13:26 | Vascular Lab Report ---
DUPLEX DOPPLER LOWER EXTREMITY ARTERIAL, BILATERAL INDICATION / CLINICAL INFORMATION: mottling leg. TECHNIQUE: Arterial duplex examination of both lower extremities performed using B-mode, color flow and spectral Doppler assessment. FINDINGS: RIGHT: Common Femoral Artery: PSV 69 cm/sec. Triphasic waveform. Proximal SFA: PSV 80 cm/sec. Triphasic waveform. Mid SFA: PSV 93 cm/sec. Triphasic waveform. Distal SFA: PSV 65 cm/sec. Triphasic waveform. Popliteal artery: PSV 80 cm/sec. Triphasic waveform. Posterior tibial artery: PSV 49 cm/sec. Triphasic waveform. Dorsalis Pedis Artery: PSV 63 cm/sec. Triphasic waveform. LEFT: Common Femoral Artery: PSV 119 cm/sec. Triphasic waveform. Proximal SFA: PSV 117 cm/sec. Triphasic waveform. Mid SFA: PSV 131 cm/sec. Triphasic waveform. Distal SFA: PSV 77 cm/sec. Triphasic waveform. Popliteal artery: PSV 78 cm/sec. Triphasic waveform. Posterior tibial artery: PSV 60 cm/sec. Triphasic waveform. Dorsalis Pedis Artery: PSV 73 cm/sec. Triphasic waveform. Right HERMAN: Not calculated Left HERMAN: Not calculated IMPRESSION: 1. No significant lower extremity peripheral artery disease. Doppler Waveform: - Triphasic is normal. - Biphasic is abnormal if clear transition from triphasic signal along vascular tree. - Monophasic is abnormal. Signer Name: Anselmo Rondon MD Signed: 12/21/2021 1:21 PM Workstation Name: [id number]
--- NOTE | 2021-12-21 13:27 | Vascular Lab Report ---
DUPLEX DOPPLER LOWER EXTREMITY ARTERIAL, BILATERAL INDICATION / CLINICAL INFORMATION: mottling leg. TECHNIQUE: Arterial duplex examination of both lower extremities performed using B-mode, color flow and spectral Doppler assessment, detailed separately. Bilateral ABIs were performed. FINDINGS: Right HERMAN: 0.98 Left HERMAN: 0.95 IMPRESSION: Normal ABIs. Signer Name: Anselmo Rondon MD Signed: 12/21/2021 1:22 PM Workstation Name: [place] [employer] [place] [id number]
[2021-12-21 13:46] LABS: Basophils % (Auto) 0.1 % (0.0-1.8); Hemoglobin 17.7 gm/dl (11.8-15.2); Lymphocytes # (Auto) 0.7 K/mm3 (1.2-5.4); Lymphocytes % (Auto) 5.4 % (13.4-35.0); Mean Corpuscular HGB Conc 35 % (32-34); Mean Corpuscular Volume 97 fl (84-94); Monocytes # (Auto) 1.4 K/mm3 (0.0-0.8); Platelet Count 176 K/mm3 (140-440); Red Blood Count 5.27 M/mm3 (3.65-5.03)
[2021-12-21 14:09] LABS: Alanine Aminotransferase 303 units/L (7-56); Albumin 4.4 g/dL (3.9-5); BUN/Creatinine Ratio 13; Blood Urea Nitrogen 10 mg/dL (9-20); Calcium 8.3 mg/dL (8.4-10.2); Hemolysis Index 10
[2021-12-21 14:10] LABS: INR 0.92 (0.87-1.13)
[2021-12-21] MEDS ORDERED: ROCURONIUM 50 MG/5 ML INJ IV ONE (16:37)
[2021-12-21] MEDS ORDERED: LIDOCAINE MPF (2%) 20 MG/1 ML VIAL 5 ML ONE (16:37)
[2021-12-21] MEDS ORDERED: ONDANSETRON 4 MG/2 ML INJ ONE (16:37)
[2021-12-21] MEDS ORDERED: propofoL 200 MG/20 ML VIAL IV ONE (16:38)
--- NOTE | 2021-12-21 16:51 | Event Note ---
Date: 12/21/21 Patient re-evaluated and upon entering the room, the patient found with worsening pain of the left leg. The patient's cousin is providing interpr etation and states the patient began complaining of the worsening pain over the last 20-30 minutes. Her left calf is tense and tender in both the anterior and posterior compartments. He has limited motor of the foot. He has thready dorsalis pedis and posterior tibial pulses. Patient has compartment syndrome of the left lower leg. He will require a left leg four compartment fasciotomy. The details of the procedure were discussed the patient through interpretation from the cousin. He expressed understanding and agrees to proceed.
[2021-12-21] MEDS ORDERED: ONDANSETRON 4 MG/2 ML INJ IV PRN (16:54)
[2021-12-21] MEDS ORDERED: HYDROmorphone 1 MG/1 ML INJ IV PRN (16:54)
--- NOTE | 2021-12-21 16:54 | Anesthesia Day of Surgery ---
Anesthesia Day of Surgery - Day of Surgery Patient Examined: Yes Patient H&P Reviewed: Yes Patient is NPO: Yes
--- NOTE | 2021-12-21 16:56 | Anesthesia Consultation ---
Anesthesia Consult and Med Hx Date of service: 12/21/21 - Airway Anesthetic Teeth Evaluation: Good ROM Head & Neck: Adequate Mental/Hyoid Distance: Adequate Mallampati Class: Class I Intubation Access Assessment: Good - Pre-Operative Health Status ASA Pre-Surgery Classification: ASA3, Emergency Proposed Anesthetic Plan: General - Pulmonary Hx Smoking: No Hx Sleep Apnea: No - Endocrine Hx Liver Disease: Yes (Markedly elevated LFTs)
[2021-12-21] MEDS ORDERED: SODIUM CHLORIDE 0.9% IRR 1,500 ML BOTTLE IR ONE (17:24)
[2021-12-21] MEDS ORDERED: NEOSTIGMINE 10MG/10 ML INJ MDV ONE (17:36)
[2021-12-21] MEDS ORDERED: dexAMETHasone 20 MG/5 ML VIAL ONE (17:36)
[2021-12-21] MEDS ORDERED: GLYCOPYRROLATE 0.4 MG/2 ML INJ ONE (17:37)
--- NOTE | 2021-12-21 17:45 | Operative Report ---
Operative Report Operative Report: Date of Procedure: 12/21/2021 Pre-operative Diagnosis: Left Lower Extremity Compartment Syndrome Post-operative Diagnosis: Same Procedure(s): 1. Left Leg 4 Compartment Fasciotomy Surgeon: Lenard Kimble M.D. Hot Saw Operator: None Anesthesia: General Endotracheal Anesthesia EBL: None Counts: Correct Complications: None Condition: Stable Findings: The muscle bulged out of all compartments once opened. The muscle and all 4 compartments was pink and appeared viable however there was minimal reaction to manipulation with cautery. Specimen: None Indication: The patient is a 36-year-old transgender female who presented to the emergency department with complaints of left thigh pain with numbness and decreased motor of the left foot. She had recently injected Rocephin into her left thigh which resulted in the symptoms approximate 1 hour after the injection. Initial evaluation of the patient was benign from a vascular standpoint however reevaluation revealed the patient had developed severe pain in the left leg and on physical exam had signs and symptoms consistent with compartment syndrome. She is in need of a 4 compartment fasciotomy. The patient was given the risk, benefits, and alternative procedures and consented to the procedure. Description of Procedure: The patient was brought to the operating room and laid in supine position. After timeout was performed general endotracheal anesthesia was achieved and the left leg was prepped and draped in normal sterile fashion. A longitudinal incision was created on the medial aspect of the leg extending from just proximal to the ankle to just distal to the knee. Cautery was used to carry the dissection down to the fascia and then the fascia of the posterior compartment was opened using long Metzenbaum scissors. The soleus was then taken down from the tibia exposing the flexor digitorum longus as well as the tibialis posterior. The fascia was released to decompress the deep compartment. Evaluation of all muscle revealed that the muscle was pink and appeared viable however the muscle did not react to manipulation with cautery. I then made a longitudinal incision on the lateral aspect of the leg and carried this down to the fascia using cautery. The the fascia of the anterior compartment was then opened with a long Metzenbaums followed by opening the fascia of the lateral compartment using a low Metzenbaums. Evaluation of the muscle revealed that all muscle appeared pink and viable however the muscle did not react to manipulation with cautery. Evaluation of the foot revealed that the cyanosis improved and there was a palpable dorsalis pedis pulse. The posterior tibial artery had a multiphasic signal with Doppler. Hemostasis within both wounds was achieved with a combination of manual pressure and cautery. Once hemostasis was achieved both wounds were dressed with Xeroform gauze to cover the muscle, Kerlix rolls to pack the wounds, ABDs followed by Kerlix roll to secure them in place and then a 6 inch Sonny bandage. The patient tolerated the procedure well. All sponge, needle, and instrument counts were correct. The patient was taken to the recovery area in stable condition.
[2021-12-21] MEDS ORDERED: LACTATED RINGERS 1,000 ML ONE ×2 (17:48→18:14)
[2021-12-21 18:13] LABS: Hepatitis B Surface Antigen Non-Reactive (Negative); Hepatitis C Virus Antibody Non-Reactive (NonReactive)
--- NOTE | 2021-12-21 18:21 | Post Anesthesia Evaluation ---
- Post Anesthesia Evaluation Patient Participated: Yes Airway Patent: Yes Stable Respiratory Function: Yes Nausea/Vomiting: No Temp > 96.8F: Yes Pain Manageable: Yes Adequeate Hydration: Yes Anesthesia Complications: No Block Receding Appropriately: Not Applicable Patient on Ventilator: No
[2021-12-21] MEDS: IPRATROPIUM/ALBUTEROL SULFATE 3 ML AMPUL.NEB IH SCH ×2 (20:52)
--- NOTE | 2021-12-21 21:08 | Event Note ---
Date: 12/21/21 Vascular and interventional radiologists Dr. Swann/Dr. Lenard Kimble evaluated the patient And patient underwent emergency left leg 4 compartment fasciotomies. Patient will be transferred to [facility] for postop care and close observation and management. Patient is critically ill with guarded prognosis Patient's family member who is at the bedside is aware of patient's condition, and prognosis We will closely monitor the patient and adjust the management as needed. We will sign off to the overnight covering hospitalist Total critical care time 60 minutes The high probability of a clinically significant, sudden or life threatening deterioration of the [multi] system(s) required my full and direct attention, intervention and personal management. The aggregate critical care time was [60] minutes. This time is in addition to time spent performing reported procedures but includes the following: [x] Data Review and interpretation [x] Patient assessment and monitoring of vital signs [x] Documentation [x] Medication orders and management
[2021-12-21] MEDS: methylPREDNISolone Sod Succinate 125 MG/2 ML INJ IV SCH (22:07)
--- NOTE | 2021-12-21 23:14 | Consultation ---
History of Present Illness Consult date: 12/21/21 Reason for Consult: Left Leg Weakness / Cellulitis Chief complaint: Left Leg Weakness / Pain History of present illness: 36 yo transgender female who presents where they injected an rocephin to the proximal left leg and soon afterwards (within an hour) noted changes in the skin's appearance and then started experiencing some swelling and pain at the left leg. At bedside, patient notes that the swelling and pain involves the whole left leg and notes inability to move his left foot or toes. They describe the pain as being burning in nature. Notes the swelling/pain stops at the lower abdomen/hip. They deny any acute backpain. Past History Past Surgical History: Other (Buttock injection performed in [place] in 2017) Social history: other (Unknown) Family history: no significant family history Medications and Allergies Allergies Allergy/AdvReac Type Severity Reaction Status Date / Time Penicillins Allergy Unknown Verified 12/21/21 07:27 Home Medications Medication Instructions Recorded Confirmed Last Taken Type No Known Home Medications [No 12/21/21 12/21/21 Unknown History Reported Home Medications] Active Meds: Active Medications Acetaminophen (Acetaminophen 325 Mg Tab) 650 mg PO Q4H PRN PRN Reason: Pain MILD(1-3)/Fever >100.5/LEVINE Albuterol (Albuterol 2.5 Mg/3 Ml Nebu) 2.5 mg IH Q3HRT PRN PRN Reason: Shortness Of Breath Albuterol/Ipratropium (Ipratropium/Albuterol Sulfate 3 Ml Ampul.Neb) 1 ampul IH BIDRT VLADIMIR Diphenhydramine HCl (Diphenhydramine 50 Mg/Ml Vial) 25 mg IV Q6H PRN PRN Reason: Skin Irritation Famotidine (Famotidine 20 Mg/2 Ml Inj) 20 mg IV BID [facility] Last Admin: 12/21/21 22:07 Dose: 20 mg Heparin Sodium (Porcine) (Heparin 5,000 Unit/1 Ml Vial) 5,000 unit SUB-Q Q12HR [facility] Last Admin: 12/21/21 22:07 Dose: 5,000 unit Hydromorphone HCl (Hydromorphone 1 Mg/1 Ml Inj) 0.5 mg IV Q3H PRN PRN Reason: Pain , Severe (7-10) Last Admin: 12/21/21 22:11 Dose: 0.5 mg Hydromorphone HCl (Hydromorphone 1 Mg/1 Ml Inj) 0.25 mg IV Q10MIN PRN PRN Reason: Pain, Moderate (4-6) Hydromorphone HCl (Hydromorphone 1 Mg/1 Ml Inj) 0.5 mg IV Q10MIN PRN PRN Reason: Pain , Severe (7-10) Last Admin: 12/21/21 18:40 Dose: 0.5 mg Sodium Chloride (Nacl 0.45% 1000 Ml) 1,000 mls @ 125 mls/hr IV DIRECT VLADIMIR Levofloxacin/Dextrose (Levaquin 750mg/150ml) 750 mg in 150 mls @ 100 mls/hr IV Q24H VLADIMIR; Protocol Last Admin: 12/21/21 08:06 Dose: 100 mls/hr Methylprednisolone Sodium Succinate (Methylprednisolone Sod Succinate 125 Mg/2 Ml Inj) 125 mg IV Q8HR VLADIMIR Last Admin: 12/21/21 22:07 Dose: 125 mg Morphine Sulfate (Morphine 2 Mg/1 Ml Inj) 2 mg IV Q4H PRN PRN Reason: Pain, Moderate (4-6) Last Admin: 12/21/21 06:48 Dose: 2 mg Ondansetron HCl (Ondansetron 4 Mg/2 Ml Inj) 4 mg IV Q8H PRN PRN Reason: Nausea And Vomiting Ondansetron HCl (Ondansetron 4 Mg/2 Ml Inj) 4 mg IV ONCE PRN PRN Reason: Nausea And Vomiting Sodium Chloride (Sodium Chloride 0.9% 10 Ml Flush Syringe) 10 ml IV BID [facility] Last Admin: 12/21/21 22:08 Dose: 10 ml Sodium Chloride (Sodium Chloride 0.9% 10 Ml Flush Syringe) 10 ml IV PRN PRN PRN Reason: LINE FLUSH Review of Systems All systems: negative (as per hpi;) Physical Examination - Vital Signs Vital Signs: Vital Signs Temp Pulse Resp BP Pulse Ox 98.6 F 110 H 24 174/94 100 12/20/21 23:11 12/20/21 23:11 12/20/21 23:11 12/20/21 23:11 12/20/21 23:11 - Physical Exam Narrative exam: Gen: nad, well-nourished; Head: normocephalic; Eyes: no gaze deviation; no ptosis; ENT: normal vocalization; CVS: warm and well-perfused; Pulm: no respiratory distress; GI: appears non-distended; Ext: no cyanosis appreciated at distal extremities; Skin: no acute rash at distal extremities; Heme: no pathologic ecchymosis appreciated at distal extremities; Neuro: alert, oriented to name, age, month, year, surroundings, no dysarthria, no aphasia, CN 2 - PERRL, visual mccoy grossly intact, CN 3, 4, 6 - EOMI, CN 5 - facial sensation symmetric to light touch, CN 7 - facial movement symmetric, CN 8 - hearing grossly intact, CN 9, 10 - uvula midline, CN 11 symmetric shoulder movement, CN 12 - tongue midline; Motor - at least 5-/5 at right extremities and left upper extremity; Motor - noted with swelling and tenderness to palpation of the muscles of the left leg (proximal/distal) with erythema of the whole left leg; no movement (0/5 strength) w/ left ADF/APF and TF/TE. Noted with at least 4-/5 strength w/ KF/KE; Sensory - light touch symmetric at BUEs with tenderness / dysesthesia at LLE from proximal to distal with numbness distal to left ankle; Cerebellar - fnf iintact bilaterally w/ difficulty to perform bilateral hts, Gait - deferred secondary to left leg weakness/dysesthesia; Results - Laboratory Findings CBC and BMP: 12/21/21 13:30 12/21/21 13:30 Abnormal Lab Findings: Abnormal Labs 12/20/21 12/20/21 12/21/21 23:35 23:35 13:30 WBC 14.0 H 13.7 H RBC 5.27 H Hgb 15.8 H 17.7 H Hct 46.9 H 51.0 H MCV 98 H 97 H MCH 33 H 34 H MCHC 35 H RDW 13.0 L Lymph % (Auto) 5.4 L [place] % (Auto) 10.0 H Lymph # (Auto) 0.7 L [place] # (Auto) 1.4 H Seg Neutrophils % 84.5 H Lymphocytes % (Manual) 41.0 H Seg Neutrophils # 11.6 H Lymphocytes # (Manual) 5.7 H Monocytes # (Manual) 1.0 H Sodium Potassium 3.3 L Chloride Carbon Dioxide 18 L Glucose 171 H Calcium AST ALT 12/21/21 13:30 WBC RBC Hgb Hct MCV MCH MCHC RDW Lymph % (Auto) [place] % (Auto) Lymph # (Auto) [place] # (Auto) Seg Neutrophils % Lymphocytes % (Manual) Seg Neutrophils # Lymphocytes # (Manual) Monocytes # (Manual) Sodium 134 L Potassium Chloride 97.3 L Carbon Dioxide Glucose 147 H Calcium 8.3 L AST 1130 H ALT 303 H Assessment and Plan 36 yo transgender female who presents where they injected an rocephin to the proximal left leg and soon afterwards (within an hour) noted changes in the skin's appearance and then started experiencing some swelling and pain at the left leg. At the time of this note, the patient's symptoms had become worse with worsening swelling and loss of blood flow to the distal left lower extremity. Patient was emergently taken to the OR for fasciotomy for acute compartment syndrome. 1. Compartment Syndrome - s/p emergent fasciotomies; anti-inflammatories, pain management; monitor for rhabdomyolysis (and/or possible renal failure). 2. Left Leg Weakness - secondary to #1 above; pt/ot evaluation/monitoring when clinically stable / surgically cleared. 3. Paresthesias / Dysesthesias - if not improved s/p fasciotomies, recommend gabapentin 100 mg po tid x 7 days and then titrate to 100 mg po bid w/ 300 mg po qhs x 5 days and then, if needed, gabapentin 300 mg po tid. 4. No further acute neurologic intervention indicated at present. Neurology will signoff. Jeff Diaz MD Neurology [id number]
[2021-12-21 23:58] LABS: Alanine Aminotransferase 460 units/L (7-56); BUN/Creatinine Ratio 15; Blood Urea Nitrogen 12 mg/dL (9-20); Hemolysis Index 13
[2021-12-22 00:02] LABS: Bilirubin,Direct < 0.2 mg/dL (0-0.2)
[2021-12-22] MEDS: HYDROmorphone 1 MG/1 ML INJ IV PRN ×7 (01:41→23:25)
[2021-12-22] MEDS: SODIUM CHLORIDE 0.45% 1000 ML 1,000 ML IV SCH ×2 (04:03→15:19)
[2021-12-22] MEDS: MORPHINE 2 MG/1 ML INJ IV PRN (05:59)
[2021-12-22] MEDS: ACETAMINOPHEN 325 MG TAB PO PRN ×2 (06:02→22:37)
[2021-12-22] MEDS: methylPREDNISolone Sod Succinate 125 MG/2 ML INJ IV SCH ×3 (06:07→22:24)
[2021-12-22 06:24] LABS: Basophils % (Auto) 0.1 % (0.0-1.8); Hematocrit 48.5 % (35.5-45.6); Hemoglobin 16.9 gm/dl (11.8-15.2); Lymphocytes # (Auto) 0.8 K/mm3 (1.2-5.4); Lymphocytes % (Auto) 6.3 % (13.4-35.0); Mean Corpuscular HGB Conc 35 % (32-34); Mean Corpuscular Volume 97 fl (84-94); Monocytes # (Auto) 1.1 K/mm3 (0.0-0.8); Monocytes % (Auto) 8.5 % (0.0-7.3); Platelet Count 185 K/mm3 (140-440); Red Blood Count 5.02 M/mm3 (3.65-5.03); Red Cell Distribution Width 13.4 % (13.2-15.2)
[2021-12-22 06:44] LABS: Blood Urea Nitrogen 12 mg/dL (9-20); Calcium 8.6 mg/dL (8.4-10.2); Hemolysis Index 48
[2021-12-22 06:48] LABS: BUN/Creatinine Ratio 17
[2021-12-22] MEDS: IPRATROPIUM/ALBUTEROL SULFATE 3 ML AMPUL.NEB IH SCH ×3 (08:36→20:23)
--- NOTE | 2021-12-22 08:36 | Progress Note ---
Assessment and Plan Assessment and plan: --Left leg compartment syndrome ; Evaluated by vascular /IR Dr. Swann and Dr Lenard Kimble Emergent left leg 4 compartment fasciotomies done 12/21/2021 elevate the limb, IV antibiotics, supportive care CT lower extremity findings reviewed Left lower extremity, arterial Doppler,venous Doppler findings reviewed Patient still complains of severe pain in the left lower extremity Unable to move the foot and toes --Transaminitis/acute liver failure; Monitor liver function tests, Check ultrasound abdomen GI consulted, follow acute hepatitis panel --Left lower extremity cellulitis Elevate the limb, empiric antibiotics cultures, Supportive care --Possible allergic reaction ; to Rocephin Continue Benadryl, high-dose steroids, Pepcid Antihistamines --Left leg severe pain; Pain medications, elevate the limb, supportive care --DVT prophylaxis Per vascular --obesity; BMI 30.7; Patient needs weight reduction when medically stable -- Full CODE STATUS; --Advance care planning We will closely monitor the patient and adjust management as needed Follow consultants evaluation and recommendations Vascular recommendations noted and appreciated Planning to transfer the patient to ICU for close observation History Interval history: I have seen and examined the patient at the bedside, this morning patient's chart and medications reviewed patient was admitted with Patient underwent fasciotomies yesterday This morning patient has bleeding mixed with serosanguineous fluid Unable to move the toes and the foot Complains of severe pain Vital signs noted Hospitalist Physical - Constitutional Vitals: Temp Pulse Resp BP Pulse Ox 98.9 F 78 18 153/89 100 12/21/21 18:45 12/21/21 20:58 12/22/21 07:02 12/21/21 19:00 12/21/21 23:02 General appearance: Present: mild distress, well-nourished, obese - EENT Eyes: Present: PERRL, EOM intact - Neck Neck: Present: supple, normal ROM - Respiratory Respiratory effort: normal Respiratory: bilateral: diminished, negative: rales, rhonchi, wheezing - Cardiovascular Rhythm: regular Heart Sounds: Present: S1 & S2 - Extremities Extremities: abnormal (Left lower extremity dressing in place, soaked with blood and serosanguineous fluid) Extremity abnormal: other (Unable to move the left foot and toes) - Abdominal General gastrointestinal: soft, non-tender, non-distended, normal bowel sounds - Integumentary Integumentary: Present: clear, warm - Psychiatric Psychiatric: appropriate mood/affect, cooperative - Neurologic Neurologic: moves all extremities Results - Labs CBC & Chem 7: 12/22/21 05:20 12/22/21 05:20 Labs: Laboratory Last Values WBC 12.7 K/mm3 (4.5-11.0) H 12/22/21 05:20 RBC 5.02 M/mm3 (3.65-5.03) 12/22/21 05:20 Hgb 16.9 gm/dl (11.8-15.2) H 12/22/21 05:20 Hct 48.5 % (35.5-45.6) H 12/22/21 05:20 MCV 97 fl (84-94) H 12/22/21 05:20 MCH 34 pg (28-32) H 12/22/21 05:20 MCHC 35 % (32-34) H 12/22/21 05:20 RDW 13.4 % (13.2-15.2) 12/22/21 05:20 Plt Count 185 K/mm3 (140-440) 12/22/21 05:20 Lymph % (Auto) 6.3 % (13.4-35.0) L 12/22/21 05:20 [place] % (Auto) 8.5 % (0.0-7.3) H 12/22/21 05:20 Eos % (Auto) 0.0 % (0.0-4.3) 12/22/21 05:20 Baso % (Auto) 0.1 % (0.0-1.8) 12/22/21 05:20 Lymph # (Auto) 0.8 K/mm3 (1.2-5.4) L 12/22/21 05:20 [place] # (Auto) 1.1 K/mm3 (0.0-0.8) H 12/22/21 05:20 Eos # (Auto) 0.0 K/mm3 (0.0-0.4) 12/22/21 05:20 Baso # (Auto) 0.0 K/mm3 (0.0-0.1) 12/22/21 05:20 Add Manual Diff Complete 12/20/21 23:35 Total Counted 100 12/20/21 23:35 Seg Neutrophils % 85.1 % (40.0-70.0) H 12/22/21 05:20 Seg Neuts % (Manual) 52.0 % (40.0-70.0) 12/20/21 23:35 Band Neutrophils % 0 % 12/20/21 23:35 Lymphocytes % (Manual) 41.0 % (13.4-35.0) H 12/20/21 23:35 Reactive Lymphs % (Man) 0 % 12/20/21 23:35 Monocytes % (Manual) 7.0 % (0.0-7.3) 12/20/21 23:35 Eosinophils % (Manual) 0 % (0.0-4.3) 12/20/21 23:35 Basophils % (Manual) 0 % (0.0-1.8) 12/20/21 23:35 Metamyelocytes % 0 % 12/20/21 23:35 Myelocytes % 0 % 12/20/21 23:35 Promyelocytes % 0 % 12/20/21 23:35 Blast Cells % 0 % 12/20/21 23:35 Nucleated RBC % Not Reportable 12/20/21 23:35 Seg Neutrophils # 10.8 K/mm3 (1.8-7.7) H 12/22/21 05:20 Seg Neutrophils # Man 7.3 K/mm3 (1.8-7.7) 12/20/21 23:35 Band Neutrophils # 0.0 K/mm3 12/20/21 23:35 Lymphocytes # (Manual) 5.7 K/mm3 (1.2-5.4) H 12/20/21 23:35 Abs React Lymphs (Man) 0.0 K/mm3 12/20/21 23:35 Monocytes # (Manual) 1.0 K/mm3 (0.0-0.8) H 12/20/21 23:35 Eosinophils # (Manual) 0.0 K/mm3 (0.0-0.4) 12/20/21 23:35 Basophils # (Manual) 0.0 K/mm3 (0.0-0.1) 12/20/21 23:35 Metamyelocytes # 0.0 K/mm3 12/20/21 23:35 Myelocytes # 0.0 K/mm3 12/20/21 23:35 Promyelocytes # 0.0 K/mm3 12/20/21 23:35 Blast Cells # 0.0 K/mm3 12/20/21 23:35 WBC Morphology Not Reportable 12/20/21 23:35 Hypersegmented Neuts Not Reportable 12/20/21 23:35 Hyposegmented Neuts Not Reportable 12/20/21 23:35 Hypogranular Neuts Not Reportable 12/20/21 23:35 Smudge Cells Not Reportable 12/20/21 23:35 Toxic Granulation Not Reportable 12/20/21 23:35 Toxic Vacuolation Not Reportable 12/20/21 23:35 Dohle Bodies Not Reportable 12/20/21 23:35 Pelger-Huet Anomaly Not Reportable 12/20/21 23:35 [place] Rods Not Reportable 12/20/21 23:35 Platelet Estimate Consistent w auto 12/20/21 23:35 Clumped Platelets Not Reportable 12/20/21 23:35 Plt Clumps, EDTA Not Reportable 12/20/21 23:35 Large Platelets Not Reportable 12/20/21 23:35 Giant Platelets Not Reportable 12/20/21 23:35 Platelet Satelliting Not Reportable 12/20/21 23:35 Plt Morphology Comment Not Reportable 12/20/21 23:35 RBC Morphology Normal 12/20/21 23:35 Dimorphic RBCs Not Reportable 12/20/21 23:35 Polychromasia Not Reportable 12/20/21 23:35 Hypochromasia Not Reportable 12/20/21 23:35 Poikilocytosis Not Reportable 12/20/21 23:35 Anisocytosis Not Reportable 12/20/21 23:35 Microcytosis Not Reportable 12/20/21 23:35 Macrocytosis Not Reportable 12/20/21 23:35 Spherocytes Not Reportable 12/20/21 23:35 Pappenheimer Bodies Not Reportable 12/20/21 23:35 Sickle Cells Not Reportable 12/20/21 23:35 Target Cells Not Reportable 12/20/21 23:35 Tear Drop Cells Not Reportable 12/20/21 23:35 Ovalocytes Not Reportable 12/20/21 23:35 Helmet Cells Not Reportable 12/20/21 23:35 [place] Bodies Not Reportable 12/20/21 23:35 [place] Rings Not Reportable 12/20/21 23:35 [place] Cells Not Reportable 12/20/21 23:35 Bite Cells Not Reportable 12/20/21 23:35 Crenated Cell Not Reportable 12/20/21 23:35 Elliptocytes Not Reportable 12/20/21 23:35 Acanthocytes (Spur) Not Reportable 12/20/21 23:35 Rouleaux Not Reportable 12/20/21 23:35 Hemoglobin C Crystals Not Reportable 12/20/21 23:35 Schistocytes Not Reportable 12/20/21 23:35 Malaria parasites Not Reportable 12/20/21 23:35 [place] Bodies Not Reportable 12/20/21 23:35 Hem Pathologist Commnt No 12/20/21 23:35 PT 13.4 Sec. (12.2-14.9) 12/21/21 13:30 INR 0.92 (0.87-1.13) 12/21/21 13:30 APTT 25.8 Sec. (24.2-36.6) 12/21/21 13:30 Sodium 134 mmol/L (137-145) L 12/22/21 05:20 Potassium 5.0 mmol/L (3.6-5.0) 12/22/21 05:20 Chloride 98.9 mmol/L (98-107) 12/22/21 05:20 Carbon Dioxide 22 mmol/L (22-30) 12/22/21 05:20 Anion Gap 18 mmol/L 12/22/21 05:20 BUN 12 mg/dL (9-20) 12/22/21 05:20 Creatinine 0.7 mg/dL (0.8-1.3) L 12/22/21 05:20 Estimated GFR > 60 ml/min 12/22/21 05:20 BUN/Creatinine Ratio 17 % 12/22/21 05:20 Glucose 167 mg/dL (75-100) H 12/22/21 05:20 Lactic Acid 1.40 mmol/L (0.7-2.0) 12/21/21 13:30 Calcium 8.6 mg/dL (8.4-10.2) 12/22/21 05:20 Total Bilirubin 0.50 mg/dL (0.1-1.2) 12/21/21 22:47 Direct Bilirubin < 0.2 mg/dL (0-0.2) 12/21/21 22:47 AST 1548 units/L (5-40) H 12/21/21 22:47 ALT 460 units/L (7-56) H 12/21/21 22:47 Alkaline Phosphatase 80 units/L (35-129) 12/21/21 22:47 Total Creatine Kinase 85908 units/L (55-170) H 12/21/21 22:47 Total Protein 6.6 g/dL (6.3-8.2) 12/21/21 22:47 Albumin 4.0 g/dL (3.9-5) 12/21/21 22:47 Albumin/Globulin Ratio 1.5 % 12/21/21 22:47 Hep Bs Antigen Non-reactive (Negative) 12/21/21 13:30 Hep B Core IgM Ab Non-reactive (NonReactive) 12/21/21 13:30 Hepatitis C Antibody Non-reactive (NonReactive) 12/21/21 13:30 Microbiology: Microbiology 12/21/21 22:47 Peripheral/Venous Blood Culture - Preliminary Culture in Progress 12/21/21 22:47 Peripheral/Venous Blood Culture - Preliminary Culture in Progress Kaur/IV: Voiding Method Urinal Active Medications - Current Medications Current Medications: Generic Name Dose Route Start Last Admin Trade Name Freq PRN Reason Stop Dose Admin Acetaminophen 650 mg 12/21/21 06:15 12/22/21 06:02 Acetaminophen 325 Mg Tab PO 650 mg Q4H PRN Administration Pain MILD(1-3)/Fever >100.5/LEVINE Albuterol 2.5 mg 12/21/21 06:15 Albuterol 2.5 Mg/3 Ml Nebu IH Q3HRT PRN Shortness Of Breath Albuterol/Ipratropium 1 ampul 12/22/21 08:00 Ipratropium/Albuterol Sulfate 3 Ml Ampul.Neb IH BIDRT VLADIMIR Diphenhydramine HCl 25 mg 12/21/21 06:24 Diphenhydramine 50 Mg/Ml Vial IV Q6H PRN Skin Irritation Famotidine 20 mg 12/21/21 10:00 12/21/21 22:07 Famotidine 20 Mg/2 Ml Inj IV 20 mg BID VLADIMIR Administration Heparin Sodium (Porcine) 5,000 unit 12/21/21 10:00 12/21/21 22:07 Heparin 5,000 Unit/1 Ml Vial SUB-Q 5,000 unit Q12HR VLADIMIR Administration Hydromorphone HCl 0.5 mg 12/21/21 06:15 12/22/21 08:20 Hydromorphone 1 Mg/1 Ml Inj IV 0.5 mg Q3H PRN Administration Pain , Severe (7-10) Hydromorphone HCl 0.25 mg 12/21/21 16:54 Hydromorphone 1 Mg/1 Ml Inj IV 12/22/21 16:53 Q10MIN PRN Pain, Moderate (4-6) Hydromorphone HCl 0.5 mg 12/21/21 16:54 12/21/21 18:40 Hydromorphone 1 Mg/1 Ml Inj IV 12/22/21 16:53 0.5 mg Q10MIN PRN Administration Pain , Severe (7-10) Sodium Chloride 1,000 mls @ 125 mls/hr 12/21/21 07:00 12/22/21 04:03 Nacl 0.45% 1000 Ml IV 125 mls/hr DIRECT VLADIMIR Administration Levofloxacin/Dextrose 750 mg in 150 mls @ 100 mls/hr 12/21/21 07:00 12/22/21 08:21 Levaquin 750mg/150ml IV 100 mls/hr Q24H VLADIMIR Administration Protocol Methylprednisolone Sodium Succinate 125 mg 12/21/21 22:00 12/22/21 06:07 Methylprednisolone Sod Succinate 125 Mg/2 Ml Inj IV 125 mg Q8HR VLADIMIR Administration Morphine Sulfate 2 mg 12/21/21 06:15 12/22/21 05:59 Morphine 2 Mg/1 Ml Inj IV 2 mg Q4H PRN Administration Pain, Moderate (4-6) Ondansetron HCl 4 mg 12/21/21 06:15 Ondansetron 4 Mg/2 Ml Inj IV Q8H PRN Nausea And Vomiting Ondansetron HCl 4 mg 12/21/21 16:54 Ondansetron 4 Mg/2 Ml Inj IV 12/22/21 16:53 ONCE PRN Nausea And Vomiting Sodium Chloride 10 ml 12/21/21 10:00 12/21/21 22:08 Sodium Chloride 0.9% 10 Ml Flush Syringe IV 10 ml BID VLADIMIR Administration Sodium Chloride 10 ml 12/21/21 06:15 Sodium Chloride 0.9% 10 Ml Flush Syringe IV PRN PRN LINE FLUSH
[2021-12-22] MEDS: HEPARIN 5,000 UNIT/1 ML VIAL SUB-Q SCH ×2 (10:46→22:23)
[2021-12-22] MEDS: FAMOTIDINE 20 MG/2 ML INJ IV SCH ×2 (10:46→22:24)
--- NOTE | 2021-12-22 11:20 | Ultrasound Report ---
ULTRASOUND ABDOMEN, COMPLETE INDICATION: Acute liver failure. COMPARISON: No relevant prior imaging study available. FINDINGS: Pancreas: No significant abnormality. Abdominal Aorta: No significant abnormality. IVC: No significant abnormality. Liver: The liver measures 15.7 cm in length. No significant abnormality. Normal hepatopedal blood fl ow in the main portal vein. Gallbladder: No significant abnormality. Bile ducts: There is mild biliary dilatation. Common bile duct measures 8.3 mm. Kidneys: Right: 10.9 cm in length. No significant abnormality. Left: 11.0 cm in length. No signif icant abnormality. Spleen: No significant abnormality. Free fluid: None. Additional Findings: None. IMPRESSION: There is mild diffuse biliary dilatation. Obstructing lesion in the distal common bile duct cannot be excluded. Consider MRCP. There is no evidence for gallstones within the gallbladder. Otherwise unremarkable exam.. Signer Name: Ady Fortune Jr, MD Signed: 12/22/2021 11:00 AM Workstation Name: [id number]
--- NOTE | 2021-12-22 11:29 | Gastroenterology Consultation ---
History of Present Illness - Reason for Consult Consult date: 12/22/21 abnormal liver enzymes Requesting physician: ALEXANDRA LUIS - History of Present Illness The patient is a 36 yo transgender female who presented after adverse reaction to IM rocephin injection of left thigh, ultimately developed compartment syndrome of left lower extremity s/p compartment fasciotomy. Liver enzymes were normal on admission, increased last 2 days. also with high CK noted today. denies abd pain or jaundice. drinks heavily on monday nights (bottle of vodka) but denies alcohol other days of the week. on ? prep for hiv ppx per pt. denies recent tylenol use. Past History Past Surgical History: Other (Buttock injection performed in [place] in 2017) Social history: other (Unknown) Family history: no significant family history Medications and Allergies Allergies Allergy/AdvReac Type Severity Reaction Status Date / Time ceftriaxone [From Rocephin] Allergy Unknown Verified 12/22/21 08:15 Penicillins Allergy Unknown Verified 12/21/21 07:27 Home Medications Medication Instructions Recorded Confirmed Last Taken Type No Known Home Medications [No 12/21/21 12/21/21 Unknown History Reported Home Medications] Active Meds: Active Medications Acetaminophen (Acetaminophen 325 Mg Tab) 650 mg PO Q4H PRN PRN Reason: Pain MILD(1-3)/Fever >100.5/LEVINE Last Admin: 12/22/21 06:02 Dose: 650 mg Albuterol (Albuterol 2.5 Mg/3 Ml Nebu) 2.5 mg IH Q3HRT PRN PRN Reason: Shortness Of Breath Albuterol/Ipratropium (Ipratropium/Albuterol Sulfate 3 Ml Ampul.Neb) 1 ampul IH BIDRT [facility] Last Admin: 12/22/21 08:36 Dose: 1 ampul Diphenhydramine HCl (Diphenhydramine 50 Mg/Ml Vial) 25 mg IV Q6H PRN PRN Reason: Skin Irritation Famotidine (Famotidine 20 Mg/2 Ml Inj) 20 mg IV BID [facility] Last Admin: 12/22/21 10:46 Dose: 20 mg Heparin Sodium (Porcine) (Heparin 5,000 Unit/1 Ml Vial) 5,000 unit SUB-Q Q12HR [facility] Last Admin: 12/22/21 10:46 Dose: 5,000 unit Hydromorphone HCl (Hydromorphone 1 Mg/1 Ml Inj) 0.5 mg IV Q3H PRN PRN Reason: Pain , Severe (7-10) Last Admin: 12/22/21 10:47 Dose: 0.5 mg Hydromorphone HCl (Hydromorphone 1 Mg/1 Ml Inj) 0.25 mg IV Q10MIN PRN PRN Reason: Pain, Moderate (4-6) Stop: 12/22/21 16:53 Hydromorphone HCl (Hydromorphone 1 Mg/1 Ml Inj) 0.5 mg IV Q10MIN PRN PRN Reason: Pain , Severe (7-10) Stop: 12/22/21 16:53 Last Admin: 12/21/21 18:40 Dose: 0.5 mg Sodium Chloride (Nacl 0.45% 1000 Ml) 1,000 mls @ 125 mls/hr IV DIRECT [facility] Last Admin: 12/22/21 04:03 Dose: 125 mls/hr Levofloxacin/Dextrose (Levaquin 750mg/150ml) 750 mg in 150 mls @ 100 mls/hr IV Q24H [facility]; Protocol Last Admin: 12/22/21 08:21 Dose: 100 mls/hr Methylprednisolone Sodium Succinate (Methylprednisolone Sod Succinate 125 Mg/2 Ml Inj) 125 mg IV Q8HR [facility] Last Admin: 12/22/21 06:07 Dose: 125 mg Morphine Sulfate (Morphine 2 Mg/1 Ml Inj) 2 mg IV Q4H PRN PRN Reason: Pain, Moderate (4-6) Last Admin: 12/22/21 05:59 Dose: 2 mg Ondansetron HCl (Ondansetron 4 Mg/2 Ml Inj) 4 mg IV Q8H PRN PRN Reason: Nausea And Vomiting Ondansetron HCl (Ondansetron 4 Mg/2 Ml Inj) 4 mg IV ONCE PRN PRN Reason: Nausea And Vomiting Stop: 12/22/21 16:53 Sodium Chloride (Sodium Chloride 0.9% 10 Ml Flush Syringe) 10 ml IV BID [facility] Last Admin: 12/22/21 10:48 Dose: 10 ml Sodium Chloride (Sodium Chloride 0.9% 10 Ml Flush Syringe) 10 ml IV PRN PRN PRN Reason: LINE FLUSH Reviewed/updated patient's home and current medications Review of Systems - Review of Systems All systems: negative (per HPI) Exam - Constitutional Vital Signs: Temp Pulse Resp BP Pulse Ox 98.9 F 90 17 153/89 95 12/21/21 18:45 12/22/21 08:36 12/22/21 08:36 12/21/21 19:00 12/22/21 08:37 General appearance: no acute distress - Respiratory Respiratory effort: normal Respiratory: bilateral: CTA - Cardiovascular Rhythm: regular Heart Sounds: Present: S1 & S2 - Gastrointestinal General gastrointestinal: Present: soft, non-tender, non-distended - Neurologic Neurological: alert and oriented x3 - Psychiatric Psychiatric: appropriate mood/affect - Labs CBC & Chem 7: 12/22/21 05:20 12/22/21 05:20 Lab Results: Laboratory Results - last 24 hr 12/21/21 12/21/21 12/21/21 13:30 13:30 13:30 WBC 13.7 H RBC 5.27 H Hgb 17.7 H Hct 51.0 H MCV 97 H MCH 34 H MCHC 35 H RDW 13.0 L Plt Count 176 Lymph % (Auto) 5.4 L Robertson % (Auto) 10.0 H Eos % (Auto) 0.0 Baso % (Auto) 0.1 Lymph # (Auto) 0.7 L Robertson # (Auto) 1.4 H Eos # (Auto) 0.0 Baso # (Auto) 0.0 Seg Neutrophils % 84.5 H Seg Neutrophils # 11.6 H PT 13.4 INR 0.92 APTT 25.8 Sodium Potassium Chloride Carbon Dioxide Anion Gap BUN Creatinine Estimated GFR BUN/Creatinine Ratio Glucose Lactic Acid Calcium Total Bilirubin Direct Bilirubin AST ALT Alkaline Phosphatase Total Creatine Kinase Total Protein Albumin Albumin/Globulin Ratio Hep Bs Antigen Hep B Core IgM Ab Hepatitis C Antibody 12/21/21 12/21/21 12/21/21 13:30 13:30 13:30 WBC RBC Hgb Hct MCV MCH MCHC RDW Plt Count Lymph % (Auto) [place] % (Auto) Eos % (Auto) Baso % (Auto) Lymph # (Auto) [place] # (Auto) Eos # (Auto) Baso # (Auto) Seg Neutrophils % Seg Neutrophils # PT INR APTT Sodium 134 L Potassium 4.7 D Chloride 97.3 L Carbon Dioxide 23 Anion Gap 18 BUN 10 Creatinine 0.8 Estimated GFR > 60 BUN/Creatinine Ratio 13 Glucose 147 H Lactic Acid 1.40 Calcium 8.3 L Total Bilirubin 0.50 Direct Bilirubin AST 1130 H ALT 303 H Alkaline Phosphatase 87 Total Creatine Kinase Total Protein 7.2 Albumin 4.4 Albumin/Globulin Ratio 1.6 Hep Bs Antigen Non-reactive Hep B Core IgM Ab Non-reactive Hepatitis C Antibody Non-reactive 12/21/21 12/22/21 12/22/21 22:47 05:20 05:20 WBC 12.7 H RBC 5.02 Hgb 16.9 H Hct 48.5 H MCV 97 H MCH 34 H MCHC 35 H RDW 13.4 Plt Count 185 Lymph % (Auto) 6.3 L Robertson % (Auto) 8.5 H Eos % (Auto) 0.0 Baso % (Auto) 0.1 Lymph # (Auto) 0.8 L Robertson # (Auto) 1.1 H Eos # (Auto) 0.0 Baso # (Auto) 0.0 Seg Neutrophils % 85.1 H Seg Neutrophils # 10.8 H PT INR APTT Sodium 135 L 134 L Potassium 5.3 H 5.0 Chloride 99.5 98.9 Carbon Dioxide 20 L 22 Anion Gap 21 18 BUN 12 12 Creatinine 0.8 0.7 L Estimated GFR > 60 > 60 BUN/Creatinine Ratio 15 17 Glucose 165 H 167 H Lactic Acid Calcium 8.0 L 8.6 Total Bilirubin 0.50 Direct Bilirubin < 0.2 AST 1548 H ALT 460 H Alkaline Phosphatase 80 Total Creatine Kinase 73414 H Total Protein 6.6 Albumin 4.0 Albumin/Globulin Ratio 1.5 Hep Bs Antigen Hep B Core IgM Ab Hepatitis C Antibody Assessment and Plan 1. Acute liver injury - suspect due to rhabdo given CK levels. US with signs of biliary dilatation so can not definitely rule out obstructing lesion. trend liver enzymes daily, and if ALT continues to rise, recommend MRCP. denies abd pain/symptoms otherwise.
[2021-12-22] MEDS ORDERED: HYDROmorphone 1 MG/1 ML INJ IV SCH (13:00)
[2021-12-22] MEDS ORDERED: SODIUM CHLORIDE 0.9% 1000 ML 1,000 ML IV ONE (16:30)
--- NOTE | 2021-12-22 16:44 | Progress Note ---
Assessment and Plan The patient is postoperative day #1 status post left lower extremity 4 compartment fasciotomy. The patient still has no motor within the left foot however she does have sensation on both the dorsal and plantar surface of the foot. The dressing was changed secondary to saturation with serosanguineous drainage however the Xeroform and Kerlix on the muscle was left intact. Evaluation revealed no active bleeding. At this time the patient has improved with with sensation but no motor. We will continue to monitor. We will change the dressing on Monday and at that time evaluate the potential for closure of the skin incisions. We will also recheck CK levels given the elevated CK and risk of rhabdomyolysis. The patient requires IV fluids to prevent renal complications. Subjective Date of service: 12/22/21 Interval history: The patient states her pain has improved. The pain is mostly associated with the incision and not the leg or foot itself. She has no additional complaints at this time. Objective - Constitutional Vitals: Vital Signs - 12hr 12/22/21 12/22/21 12/22/21 05:31 05:59 06:02 Temperature 99.2 F Pulse Rate 85 Pulse Rate [ Anterior Bilateral Throughout] Respiratory 18 18 20 Rate Respiratory Rate [Anterior Bilateral Throughout] Blood Pressure 152/104 O2 Sat by Pulse 93 Oximetry 12/22/21 12/22/21 12/22/21 06:29 07:02 08:36 Temperature Pulse Rate Pulse Rate [ 90 Anterior Bilateral Throughout] Respiratory 20 18 Rate Respiratory 17 Rate [Anterior Bilateral Throughout] Blood Pressure O2 Sat by Pulse Oximetry 12/22/21 12/22/21 08:37 12:09 Temperature 98.9 F Pulse Rate 97 H Pulse Rate [ Anterior Bilateral Throughout] Respiratory 18 Rate Respiratory Rate [Anterior Bilateral Throughout] Blood Pressure 145/96 O2 Sat by Pulse 95 92 Oximetry General appearance: Present: no acute distress - Respiratory Respiratory effort: normal Extremities: pulses intact (Palpable left dorsalis pedis and posterior tibial pulses), abnormal (Some serosanguineous drainage of the dressing on the left leg) Extremity abnormal: black (Cyanotic changes on the plantar surface of the left foot however the foot is warm) - Labs CBC & Chem 7: 12/22/21 05:20 12/22/21 05:20 Labs: Abnormal lab results 12/21/21 12/22/21 12/22/21 Range/Units 22:47 05:20 05:20 WBC 12.7 H (4.5-11.0) K/mm3 Hgb 16.9 H (11.8-15.2) gm/dl Hct 48.5 H (35.5-45.6) % MCV 97 H (84-94) fl MCH 34 H (28-32) pg MCHC 35 H (32-34) % Lymph % (Auto) 6.3 L (13.4-35.0) % [place] % (Auto) 8.5 H (0.0-7.3) % Lymph # (Auto) 0.8 L (1.2-5.4) K/mm3 [place] # (Auto) 1.1 H (0.0-0.8) K/mm3 Seg Neutrophils % 85.1 H (40.0-70.0) % Seg Neutrophils # 10.8 H (1.8-7.7) K/mm3 Sodium 135 L 134 L (137-145) mmol/L Potassium 5.3 H (3.6-5.0) mmol/L Carbon Dioxide 20 L (22-30) mmol/L Creatinine 0.7 L (0.8-1.3) mg/dL Glucose 165 H 167 H (75-100) mg/dL Calcium 8.0 L (8.4-10.2) mg/dL AST 1548 H (5-40) units/L ALT 460 H (7-56) units/L Total Creatine Kinase 34535 H (55-170) units/L Medications & Allergies - Medications Allergies/Adverse Reactions: Allergies ceftriaxone [From Rocephin] Allergy (Verified 12/22/21 08:15) Unknown Penicillins Allergy (Verified 12/21/21 07:27) Unknown Home Medications: Home Medications Medication Instructions Recorded Confirmed Last Taken Type No Known Home Medications [No 12/21/21 12/21/21 Unknown History Reported Home Medications] Active Medications: Generic Name Dose Route Start Last Admin Trade Name Freq PRN Reason Stop Dose Admin Acetaminophen 650 mg 12/21/21 06:15 12/22/21 06:02 Acetaminophen 325 Mg Tab PO 650 mg Q4H PRN Administration Pain MILD(1-3)/Fever >100.5/LEVINE Albuterol 2.5 mg 12/21/21 06:15 Albuterol 2.5 Mg/3 Ml Nebu IH Q3HRT PRN Shortness Of Breath Albuterol/Ipratropium 1 ampul 12/22/21 08:00 12/22/21 08:36 Ipratropium/Albuterol Sulfate 3 Ml Ampul.Neb IH 1 ampul BIDRT [facility] Administration Diphenhydramine HCl 25 mg 12/21/21 06:24 Diphenhydramine 50 Mg/Ml Vial IV Q6H PRN Skin Irritation Famotidine 20 mg 12/21/21 10:00 12/22/21 10:46 Famotidine 20 Mg/2 Ml Inj IV 20 mg BID [facility] Administration Heparin Sodium (Porcine) 5,000 unit 12/21/21 10:00 12/22/21 10:46 Heparin 5,000 Unit/1 Ml Vial SUB-Q 5,000 unit Q12HR [facility] Administration Hydromorphone HCl 0.5 mg 12/21/21 06:15 12/22/21 16:01 Hydromorphone 1 Mg/1 Ml Inj IV 0.5 mg Q3H PRN Administration Pain , Severe (7-10) Hydromorphone HCl 0.25 mg 12/21/21 16:54 Hydromorphone 1 Mg/1 Ml Inj IV 12/22/21 16:53 Q10MIN PRN Pain, Moderate (4-6) Hydromorphone HCl 0.5 mg 12/21/21 16:54 12/21/21 18:40 Hydromorphone 1 Mg/1 Ml Inj IV 12/22/21 16:53 0.5 mg Q10MIN PRN Administration Pain , Severe (7-10) Hydromorphone HCl 0.5 mg 12/22/21 13:00 12/22/21 13:00 Hydromorphone 1 Mg/1 Ml Inj IV 12/22/21 17:00 0.5 mg ONCE@1300 [facility] Administration Sodium Chloride 1,000 mls @ 125 mls/hr 12/21/21 07:00 12/22/21 15:19 Nacl 0.45% 1000 Ml IV 125 mls/hr DIRECT [facility] Administration Levofloxacin/Dextrose 750 mg in 150 mls @ 100 mls/hr 12/21/21 07:00 12/22/21 08:21 Levaquin 750mg/150ml IV 100 mls/hr Q24H [facility] Administration Protocol Sodium Chloride 1,000 mls @ 999 mls/hr 12/22/21 16:30 Nacl 0.9% 1000 Ml IV 12/22/21 17:30 BOLUS ONE Methylprednisolone Sodium Succinate 125 mg 12/21/21 22:00 12/22/21 14:14 Methylprednisolone Sod Succinate 125 Mg/2 Ml Inj IV 125 mg Q8HR [facility] Administration Morphine Sulfate 2 mg 12/21/21 06:15 12/22/21 05:59 Morphine 2 Mg/1 Ml Inj IV 2 mg Q4H PRN Administration Pain, Moderate (4-6) Ondansetron HCl 4 mg 12/21/21 06:15 Ondansetron 4 Mg/2 Ml Inj IV Q8H PRN Nausea And Vomiting Ondansetron HCl 4 mg 12/21/21 16:54 Ondansetron 4 Mg/2 Ml Inj IV 12/22/21 16:53 ONCE PRN Nausea And Vomiting Sodium Chloride 10 ml 12/21/21 10:00 12/22/21 10:48 Sodium Chloride 0.9% 10 Ml Flush Syringe IV 10 ml BID [facility] Administration Sodium Chloride 10 ml 12/21/21 06:15 Sodium Chloride 0.9% 10 Ml Flush Syringe IV PRN PRN LINE FLUSH
[2021-12-22] MEDS ORDERED: hydrALAZINE 20 MG/1 ML INJ IV PRN (18:31)
[2021-12-22] MEDS ORDERED: FUROSEMIDE 40 MG/4 ML INJ IV ONE (18:36)
--- NOTE | 2021-12-22 18:53 | Event Note ---
Date: 12/22/21 Patient has severe rhabdomyolysis with CK 93,000, preserved renal function . patient received IV fluid bolus with significant improvement Increase IV fluids to 200 to 300 mL/h, with IV Lasix 40 every 12hr, oral sodium bicarb. Check CK every 8 hours x4, monitor input output, Kaur catheter Nephrology consulted. Discussed with piece dyer Dr. Razo We will closely monitor the patient and adjust management as needed
[2021-12-22] MEDS: SODIUM CHLORIDE 0.9% 1000 ML 1,000 ML IV SCH (20:00)
[2021-12-22] MEDS: SODIUM BICARBONATE 650 MG TAB PO SCH (22:24)
[2021-12-22] MEDS: VALSARTAN 160MG TAB PO SCH (22:28)
[2021-12-23] MEDS: SODIUM CHLORIDE 0.9% 1000 ML 1,000 ML IV SCH ×4 (00:15→23:04)
[2021-12-23] MEDS: HYDROmorphone 1 MG/1 ML INJ IV PRN (03:13)
[2021-12-23 05:25] LABS: Hematocrit 42.4 % (35.5-45.6); Hemoglobin 14.1 gm/dl (11.8-15.2); Lymphocytes # (Auto) 1.1 K/mm3 (1.2-5.4); Lymphocytes % (Auto) 7.8 % (13.4-35.0); Mean Corpuscular HGB Conc 33 % (32-34); Mean Corpuscular Volume 98 fl (84-94); Monocytes # (Auto) 1.5 K/mm3 (0.0-0.8); Monocytes % (Auto) 10.6 % (0.0-7.3); Platelet Count 187 K/mm3 (140-440); Red Blood Count 4.32 M/mm3 (3.65-5.03); Red Cell Distribution Width 12.7 % (13.2-15.2)
[2021-12-23 05:45] LABS: Alanine Aminotransferase 441 units/L (7-56); Albumin 3.3 g/dL (3.9-5); BUN/Creatinine Ratio 18; Blood Urea Nitrogen 14 mg/dL (9-20); Calcium 7.8 mg/dL (8.4-10.2); Hemolysis Index 8
[2021-12-23] MEDS ORDERED: FUROSEMIDE 40 MG/4 ML INJ IV SCH (06:00)
[2021-12-23] MEDS: methylPREDNISolone Sod Succinate 125 MG/2 ML INJ IV SCH ×3 (06:31→22:45)
[2021-12-23] MEDS: MORPHINE 2 MG/1 ML INJ IV PRN ×3 (08:05→20:18)
[2021-12-23] MEDS: SODIUM BICARBONATE 650 MG TAB PO SCH ×3 (08:25→20:18)
[2021-12-23] MEDS: IPRATROPIUM/ALBUTEROL SULFATE 3 ML AMPUL.NEB IH SCH ×2 (08:51→20:50)
--- NOTE | 2021-12-23 08:59 | Consultation ---
History of Present Illness - Reason for Consult Consult date: 12/23/21 other (rhabdomyolysis) - History of Present Illness 36-year-old with no significant past medical history was brought to the emergency room because of adverse drug reaction. He reportedly received an IM penicillin shot in his left thigh earlier. Surgery consulted, concern for compartment syndrome noted, s/p fasciotomy. Noted to have elevated CK >90,000 and nephrology consulted. Kidney function WNL. Also noted to have elevated AST/ALT. At time of consult, patient denies any acute issues, no pain. Deneis dyspnea, edema. Notes normal urine output. Past History Past Medical History: No medical history Past Surgical History: Other (Buttock injection performed in [place] in 2017) Social history: other (Unknown) Family history: no significant family history Medications and Allergies Allergies Allergy/AdvReac Type Severity Reaction Status Date / Time ceftriaxone [From Rocephin] Allergy Unknown Verified 12/22/21 08:15 Penicillins Allergy Unknown Verified 12/21/21 07:27 Home Medications Medication Instructions Recorded Confirmed Last Taken Type No Known Home Medications [No 12/21/21 12/21/21 Unknown History Reported Home Medications] Active Meds: Active Medications Acetaminophen (Acetaminophen 325 Mg Tab) 650 mg PO Q4H PRN PRN Reason: Pain MILD(1-3)/Fever >100.5/LEVINE Last Admin: 12/22/21 22:37 Dose: 650 mg Albuterol (Albuterol 2.5 Mg/3 Ml Nebu) 2.5 mg IH Q3HRT PRN PRN Reason: Shortness Of Breath Albuterol/Ipratropium (Ipratropium/Albuterol Sulfate 3 Ml Ampul.Neb) 1 ampul IH BIDRT [facility] Last Admin: 12/23/21 08:51 Dose: 1 ampul Diphenhydramine HCl (Diphenhydramine 50 Mg/Ml Vial) 25 mg IV Q6H PRN PRN Reason: Skin Irritation Famotidine (Famotidine 20 Mg/2 Ml Inj) 20 mg IV BID [facility] Last Admin: 12/22/21 22:24 Dose: 20 mg Heparin Sodium (Porcine) (Heparin 5,000 Unit/1 Ml Vial) 5,000 unit SUB-Q Q12HR [facility] Last Admin: 12/22/21 22:23 Dose: 5,000 unit Hydralazine HCl (Hydralazine 20 Mg/1 Ml Inj) 10 mg IV Q3HR PRN PRN Reason: Hypertension Last Admin: 12/22/21 18:50 Dose: 10 mg Hydromorphone HCl (Hydromorphone 1 Mg/1 Ml Inj) 0.5 mg IV Q3H PRN PRN Reason: Pain , Severe (7-10) Last Admin: 12/23/21 03:13 Dose: 0.5 mg Sodium Chloride (Nacl 0.45% 1000 Ml) 1,000 mls @ 125 mls/hr IV DIRECT [facility] Last Admin: 12/22/21 15:19 Dose: 125 mls/hr Levofloxacin/Dextrose (Levaquin 750mg/150ml) 750 mg in 150 mls @ 100 mls/hr IV Q24H [facility]; Protocol Last Admin: 12/23/21 08:26 Dose: 100 mls/hr Sodium Chloride (Nacl 0.9% 1000 Ml) 1,000 mls @ 200 mls/hr IV DIRECT [facility] Last Admin: 12/23/21 00:15 Dose: 200 mls/hr Methylprednisolone Sodium Succinate (Methylprednisolone Sod Succinate 125 Mg/2 Ml Inj) 80 mg IV Q8HR [facility] Last Admin: 12/23/21 06:31 Dose: 80 mg Morphine Sulfate (Morphine 2 Mg/1 Ml Inj) 2 mg IV Q4H PRN PRN Reason: Pain, Moderate (4-6) Last Admin: 12/23/21 08:05 Dose: 2 mg Ondansetron HCl (Ondansetron 4 Mg/2 Ml Inj) 4 mg IV Q8H PRN PRN Reason: Nausea And Vomiting Sodium Bicarbonate (Sodium Bicarbonate 650 Mg Tab) 650 mg PO TID [facility] Last Admin: 12/23/21 08:25 Dose: 650 mg Sodium Chloride (Sodium Chloride 0.9% 10 Ml Flush Syringe) 10 ml IV BID [facility] Last Admin: 12/22/21 22:26 Dose: 10 ml Sodium Chloride (Sodium Chloride 0.9% 10 Ml Flush Syringe) 10 ml IV PRN PRN PRN Reason: LINE FLUSH Valsartan (Valsartan 160mg Tab) 160 mg PO DAILY [facility] Last Admin: 12/22/21 22:28 Dose: 160 mg Review of Systems All systems: negative (as per HPI) Exam - Vital Signs Vital signs: Vital Signs Temp Pulse Resp BP Pulse Ox 98.6 F 110 H 24 174/94 100 12/20/21 23:11 12/20/21 23:11 12/20/21 23:11 12/20/21 23:11 12/20/21 23:11 - General Appearance General appearance: well-developed, well-nourished EENT: ATNC Neck: Present: neck supple, trachea midline Respiratory: Clear to Ascultation Heart: regular, S1S2 Gastrointestinal: Present: normoactive bowel sounds Integumentary: no rash, warm and dry Neurologic: no focal deficit, no asterixis Results - Lab Results 12/23/21 04:49 12/23/21 04:49 Most recent lab results Calcium 7.8 mg/dL (8.4-10.2) L 12/23/21 04:49 Magnesium 2.10 mg/dL (1.7-2.3) 12/23/21 04:49 Assessment and Plan # Acute Rhabdomyolysis in setting of left leg compartment syndrome: - continue aggressive IVF (NS at 200ml/min reasonable), CK downtrending - s/p fasciotomy per Dr. Swann/Lamin, appreciate - supportive measures per primary - can d/c lasix, use prn if respiratory status worsening/volume overload developing, but note appropriate urine output - follow renal function, electrolytes- currently stable # Transaminitis: in setting of rhabdomyolysis, note GI input
--- NOTE | 2021-12-23 09:12 | Gastroenterology Progress Note ---
Assessment and Plan 1. Acute liver injury - suspect primarily from rhabdo and sepsis. stable levels today. denies abd pain. cont supportive care and trend liver enzymes for now. hopefully will improve with management of acute medical issues. Subjective Date of service: 12/23/21 Principal diagnosis: abnormal liver enzymes Interval history: pt transferred to ICU, no new gi complaints/symptoms Objective - Constitutional Vitals: Temp Pulse Resp BP Pulse Ox 100.2 F H 102 H 18 135/90 98 12/23/21 07:17 12/23/21 08:54 12/23/21 08:54 12/23/21 06:30 12/23/21 06:30 General appearance: no acute distress - Respiratory Respiratory effort: normal Respiratory: bilateral: CTA - Cardiovascular Rhythm: regular Heart Sounds: Present: S1 & S2 - Gastrointestinal General gastrointestinal: Present: soft, non-tender - Labs CBC & Chem 7: 12/23/21 04:49 12/23/21 04:49 Labs: Laboratory Results - last 24 hr 12/22/21 12/22/21 12/22/21 11:40 16:42 16:42 WBC RBC Hgb Hct MCV MCH MCHC RDW Plt Count Lymph % (Auto) [place] % (Auto) Eos % (Auto) Baso % (Auto) Lymph # (Auto) [place] # (Auto) Eos # (Auto) Baso # (Auto) Seg Neutrophils % Seg Neutrophils # Sodium Potassium Chloride Carbon Dioxide Anion Gap BUN Creatinine Estimated GFR BUN/Creatinine Ratio Glucose Calcium Magnesium Total Bilirubin AST ALT Alkaline Phosphatase [place]monia Total Creatine Kinase 75423 H Total Protein Albumin Albumin/Globulin Ratio Amylase Lipase Coronavirus (PCR) Negative HIV 1&2 Antibody Rapid Non react HIV P24 Antigen Non react 12/22/21 12/23/21 12/23/21 22:17 04:49 04:49 WBC 14.2 H RBC 4.32 Hgb 14.1 Hct 42.4 D MCV 98 H MCH 33 H MCHC 33 RDW 12.7 L Plt Count 187 Lymph % (Auto) 7.8 L [place] % (Auto) 10.6 H Eos % (Auto) 0.0 Baso % (Auto) 0.0 Lymph # (Auto) 1.1 L [place] # (Auto) 1.5 H Eos # (Auto) 0.0 Baso # (Auto) 0.0 Seg Neutrophils % 81.6 H Seg Neutrophils # 11.6 H Sodium 134 L Potassium 4.6 Chloride 96.9 L Carbon Dioxide 25 Anion Gap 17 BUN 14 Creatinine 0.8 Estimated GFR > 60 BUN/Creatinine Ratio 18 Glucose 137 H Calcium 7.8 L Magnesium 2.10 Total Bilirubin 0.40 AST 1024 H ALT 441 H Alkaline Phosphatase 54 Ammonia Total Creatine Kinase 88068 H Total Protein 5.5 L Albumin 3.3 L Albumin/Globulin Ratio 1.5 Amylase 25 L Lipase 10 L Coronavirus (PCR) HIV 1&2 Antibody Rapid HIV P24 Antigen 12/23/21 12/23/21 04:49 04:49 WBC RBC Hgb Hct MCV MCH MCHC RDW Plt Count Lymph % (Auto) [place] % (Auto) Eos % (Auto) Baso % (Auto) Lymph # (Auto) [place] # (Auto) Eos # (Auto) Baso # (Auto) Seg Neutrophils % Seg Neutrophils # Sodium Potassium Chloride Carbon Dioxide Anion Gap BUN Creatinine Estimated GFR BUN/Creatinine Ratio Glucose Calcium Magnesium Total Bilirubin AST ALT Alkaline Phosphatase Ammonia 37.0 Total Creatine Kinase 20717 H Total Protein Albumin Albumin/Globulin Ratio Amylase Lipase Coronavirus (PCR) HIV 1&2 Antibody Rapid HIV P24 Antigen
[2021-12-23] MEDS: VALSARTAN 160MG TAB PO SCH (10:02)
[2021-12-23] MEDS: FAMOTIDINE 20 MG/2 ML INJ IV SCH ×2 (10:03→22:45)
[2021-12-23] MEDS: HEPARIN 5,000 UNIT/1 ML VIAL SUB-Q SCH ×2 (10:03→22:44)
--- NOTE | 2021-12-23 10:52 | Progress Note ---
Assessment and Plan Patient status post fasciotomy for left leg compartment syndrome. Serosanguineous drainage noted. Plan to change dressings tomorrow with an eye towards possible closure. Patient with motor deficits to left foot with preserved sensation. Evolving ischemic changes to the bottom of the foot. Subjective Date of service: 12/23/21 Principal diagnosis: abnormal liver enzymes Interval history: Patient with a left leg compartment syndrome status post fasciotomy and rhabdomyolysis with preserved renal function. Patient with intact sensation and palpable dorsalis pedis pulse. No motor to the left foot. Patient developing ischemic changes to the plantar surface of the foot with discoloration of the heel and forefoot. Objective - Constitutional Vitals: Vital Signs - 12hr 12/22/21 12/22/21 12/22/21 22:51 23:00 23:01 Temperature Pulse Rate 111 H 97 H 100 H Pulse Rate [ Anterior Bilateral Throughout] Pulse Rate [ From Monitor] Respiratory 24 20 20 Rate Respiratory Rate [Anterior Bilateral Throughout] Blood Pressure 139/91 134/90 134/90 O2 Sat by Pulse 97 97 97 Oximetry 12/22/21 12/22/21 12/22/21 23:11 23:15 23:21 Temperature Pulse Rate 118 H 105 H Pulse Rate [ Anterior Bilateral Throughout] Pulse Rate [ From Monitor] Respiratory 22 22 Rate Respiratory Rate [Anterior Bilateral Throughout] Blood Pressure 134/90 138/88 138/88 O2 Sat by Pulse 98 96 Oximetry 12/22/21 12/22/21 12/22/21 23:30 23:41 23:51 Temperature Pulse Rate 97 H 108 H 102 H Pulse Rate [ Anterior Bilateral Throughout] Pulse Rate [ From Monitor] Respiratory 22 24 25 H Rate Respiratory Rate [Anterior Bilateral Throughout] Blood Pressure 115/70 O2 Sat by Pulse 95 96 96 Oximetry 12/23/21 12/23/21 12/23/21 00:00 00:01 00:11 Temperature 98 F Pulse Rate 94 H 100 H 101 H Pulse Rate [ Anterior Bilateral Throughout] Pulse Rate [ 101 H From Monitor] Respiratory 16 25 H 24 Rate Respiratory Rate [Anterior Bilateral Throughout] Blood Pressure O2 Sat by Pulse 98 96 96 Oximetry 12/23/21 12/23/21 12/23/21 00:21 00:31 00:41 Temperature Pulse Rate 101 H 98 H 93 H Pulse Rate [ Anterior Bilateral Throughout] Pulse Rate [ From Monitor] Respiratory 20 19 21 Rate Respiratory Rate [Anterior Bilateral Throughout] Blood Pressure 106/59 106/59 106/59 O2 Sat by Pulse 96 97 97 Oximetry 12/23/21 12/23/21 12/23/21 00:51 01:00 01:11 Temperature Pulse Rate 97 H 94 H 92 H Pulse Rate [ Anterior Bilateral Throughout] Pulse Rate [ From Monitor] Respiratory 22 20 20 Rate Respiratory Rate [Anterior Bilateral Throughout] Blood Pressure 106/59 104/63 104/63 O2 Sat by Pulse 96 97 97 Oximetry 12/23/21 12/23/21 12/23/21 01:21 01:31 01:41 Temperature Pulse Rate 94 H 93 H 90 Pulse Rate [ Anterior Bilateral Throughout] Pulse Rate [ From Monitor] Respiratory 20 20 18 Rate Respiratory Rate [Anterior Bilateral Throughout] Blood Pressure 104/63 104/63 104/63 O2 Sat by Pulse 96 95 96 Oximetry 12/23/21 12/23/21 12/23/21 01:51 02:00 02:11 Temperature Pulse Rate 101 H 92 H 96 H Pulse Rate [ Anterior Bilateral Throughout] Pulse Rate [ From Monitor] Respiratory 22 22 23 Rate Respiratory Rate [Anterior Bilateral Throughout] Blood Pressure 104/63 122/80 122/80 O2 Sat by Pulse 96 97 96 Oximetry 12/23/21 12/23/21 12/23/21 02:21 02:31 02:40 Temperature Pulse Rate 100 H 90 90 Pulse Rate [ Anterior Bilateral Throughout] Pulse Rate [ From Monitor] Respiratory 22 20 22 Rate Respiratory Rate [Anterior Bilateral Throughout] Blood Pressure 122/80 122/80 122/80 O2 Sat by Pulse 96 96 96 Oximetry 12/23/21 12/23/21 12/23/21 02:50 03:00 03:10 Temperature Pulse Rate 87 89 107 H Pulse Rate [ Anterior Bilateral Throughout] Pulse Rate [ From Monitor] Respiratory 19 22 23 Rate Respiratory Rate [Anterior Bilateral Throughout] Blood Pressure 113/71 113/71 O2 Sat by Pulse 97 96 97 Oximetry 12/23/21 12/23/21 12/23/21 03:20 03:30 03:40 Temperature Pulse Rate 86 92 H 87 Pulse Rate [ Anterior Bilateral Throughout] Pulse Rate [ From Monitor] Respiratory 20 20 19 Rate Respiratory Rate [Anterior Bilateral Throughout] Blood Pressure 113/71 113/71 113/71 O2 Sat by Pulse 97 97 96 Oximetry 12/23/21 12/23/21 12/23/21 03:50 04:00 04:10 Temperature 98.3 F Pulse Rate 100 H 89 84 Pulse Rate [ Anterior Bilateral Throughout] Pulse Rate [ 86 From Monitor] Respiratory 24 18 21 Rate Respiratory Rate [Anterior Bilateral Throughout] Blood Pressure 113/71 124/86 124/86 O2 Sat by Pulse 95 98 96 Oximetry 12/23/21 12/23/21 12/23/21 04:20 04:30 04:40 Temperature Pulse Rate 82 85 90 Pulse Rate [ Anterior Bilateral Throughout] Pulse Rate [ From Monitor] Respiratory 21 20 18 Rate Respiratory Rate [Anterior Bilateral Throughout] Blood Pressure 124/86 124/86 124/86 O2 Sat by Pulse 97 97 97 Oximetry 12/23/21 12/23/21 12/23/21 04:50 05:00 05:10 Temperature Pulse Rate 86 82 84 Pulse Rate [ Anterior Bilateral Throughout] Pulse Rate [ From Monitor] Respiratory 19 20 21 Rate Respiratory Rate [Anterior Bilateral Throughout] Blood Pressure 124/86 140/94 140/94 O2 Sat by Pulse 98 98 97 Oximetry 12/23/21 12/23/21 12/23/21 05:20 05:30 05:40 Temperature Pulse Rate 88 83 91 H Pulse Rate [ Anterior Bilateral Throughout] Pulse Rate [ From Monitor] Respiratory 21 20 12 Rate Respiratory Rate [Anterior Bilateral Throughout] Blood Pressure 140/94 140/94 140/94 O2 Sat by Pulse 97 97 99 Oximetry 12/23/21 12/23/21 12/23/21 05:50 06:00 06:10 Temperature Pulse Rate 88 87 85 Pulse Rate [ Anterior Bilateral Throughout] Pulse Rate [ From Monitor] Respiratory 22 12 19 Rate Respiratory Rate [Anterior Bilateral Throughout] Blood Pressure 140/94 135/90 135/90 O2 Sat by Pulse 97 96 97 Oximetry 12/23/21 12/23/21 12/23/21 06:20 06:30 07:17 Temperature 100.2 F H Pulse Rate 99 H 102 H Pulse Rate [ Anterior Bilateral Throughout] Pulse Rate [ From Monitor] Respiratory 21 15 Rate Respiratory Rate [Anterior Bilateral Throughout] Blood Pressure 135/90 135/90 O2 Sat by Pulse 97 98 Oximetry 12/23/21 08:54 Temperature Pulse Rate Pulse Rate [ 102 H Anterior Bilateral Throughout] Pulse Rate [ From Monitor] Respiratory Rate Respiratory 18 Rate [Anterior Bilateral Throughout] Blood Pressure O2 Sat by Pulse Oximetry General appearance: Present: no acute distress - EENT Eyes: EOM intact ENT: hearing intact - Neck Neck: supple, normal ROM - Respiratory Respiratory effort: normal - Breasts Breasts: deferred Extremities: abnormal - Gastrointestinal General gastrointestinal: Present: deferred Rectal Exam: deferred - Psychiatric Psychiatric: cooperative - Labs CBC & Chem 7: 12/23/21 04:49 12/23/21 04:49 Labs: Abnormal lab results 12/22/21 12/22/21 12/23/21 Range/Units 16:42 22:17 04:49 WBC 14.2 H (4.5-11.0) K/mm3 MCV 98 H (84-94) fl MCH 33 H (28-32) pg RDW 12.7 L (13.2-15.2) % Lymph % (Auto) 7.8 L (13.4-35.0) % [place] % (Auto) 10.6 H (0.0-7.3) % Lymph # (Auto) 1.1 L (1.2-5.4) K/mm3 [place] # (Auto) 1.5 H (0.0-0.8) K/mm3 Seg Neutrophils % 81.6 H (40.0-70.0) % Seg Neutrophils # 11.6 H (1.8-7.7) K/mm3 Sodium (137-145) mmol/L Chloride (98-107) mmol/L Glucose (75-100) mg/dL Calcium (8.4-10.2) mg/dL AST (5-40) units/L ALT (7-56) units/L Total Creatine Kinase 87600 H 04300 H (55-170) units/L Total Protein (6.3-8.2) g/dL Albumin (3.9-5) g/dL Amylase (27-131) units/L Lipase (13-60) units/L 12/23/21 12/23/21 Range/Units 04:49 04:49 WBC (4.5-11.0) K/mm3 MCV (84-94) fl MCH (28-32) pg RDW (13.2-15.2) % Lymph % (Auto) (13.4-35.0) % [place] % (Auto) (0.0-7.3) % Lymph # (Auto) (1.2-5.4) K/mm3 [place] # (Auto) (0.0-0.8) K/mm3 Seg Neutrophils % (40.0-70.0) % Seg Neutrophils # (1.8-7.7) K/mm3 Sodium 134 L (137-145) mmol/L Chloride 96.9 L (98-107) mmol/L Glucose 137 H (75-100) mg/dL Calcium 7.8 L (8.4-10.2) mg/dL AST 1024 H (5-40) units/L ALT 441 H (7-56) units/L Total Creatine Kinase 87700 H (55-170) units/L Total Protein 5.5 L (6.3-8.2) g/dL Albumin 3.3 L (3.9-5) g/dL Amylase 25 L (27-131) units/L Lipase 10 L (13-60) units/L Medications & Allergies - Medications Allergies/Adverse Reactions: Allergies ceftriaxone [From Rocephin] Allergy (Severe, Verified 12/23/21 10:23) Unknown SEVERE RASH MOTTLING OF THE SKIN POST ADMINISTRATION OF [employer] Penicillins Allergy (Severe, Verified 12/23/21 10:23) Unknown SEVERE RASH MOTTLING OF THE SKIN POST ADMINISTRATION OF [employer] Home Medications: Home Medications Medication Instructions Recorded Confirmed Last Taken Type No Known Home Medications [No 12/21/21 12/21/21 Unknown History Reported Home Medications] Active Medications: Generic Name Dose Route Start Last Admin Trade Name Freq PRN Reason Stop Dose Admin Acetaminophen 650 mg 12/21/21 06:15 12/22/21 22:37 Acetaminophen 325 Mg Tab PO 650 mg Q4H PRN Administration Pain MILD(1-3)/Fever >100.5/LEVINE Albuterol 2.5 mg 12/21/21 06:15 Albuterol 2.5 Mg/3 Ml Nebu IH Q3HRT PRN Shortness Of Breath Albuterol/Ipratropium 1 ampul 12/22/21 08:00 12/23/21 08:51 Ipratropium/Albuterol Sulfate 3 Ml Ampul.Neb IH 1 ampul BIDRT VLADIMIR Administration Diphenhydramine HCl 25 mg 12/21/21 06:24 Diphenhydramine 50 Mg/Ml Vial IV Q6H PRN Skin Irritation Famotidine 20 mg 12/21/21 10:00 12/23/21 10:03 Famotidine 20 Mg/2 Ml Inj IV 20 mg BID VLADIMIR Administration Heparin Sodium (Porcine) 5,000 unit 12/21/21 10:00 12/23/21 10:03 Heparin 5,000 Unit/1 Ml Vial SUB-Q 5,000 unit Q12HR VLADIMIR Administration Hydralazine HCl 10 mg 12/22/21 18:31 12/22/21 18:50 Hydralazine 20 Mg/1 Ml Inj IV 10 mg Q3HR PRN Administration Hypertension Hydromorphone HCl 0.5 mg 12/21/21 06:15 12/23/21 03:13 Hydromorphone 1 Mg/1 Ml Inj IV 0.5 mg Q3H PRN Administration Pain , Severe (7-10) Levofloxacin/Dextrose 750 mg in 150 mls @ 100 mls/hr 12/21/21 07:00 12/23/21 08:26 Levaquin 750mg/150ml IV 100 mls/hr Q24H VLADIMIR Administration Protocol Sodium Chloride 1,000 mls @ 200 mls/hr 12/22/21 18:30 12/23/21 10:02 Nacl 0.9% 1000 Ml IV 200 mls/hr DIRECT VLADIMIR Administration Methylprednisolone Sodium Succinate 80 mg 12/22/21 18:59 12/23/21 06:31 Methylprednisolone Sod Succinate 125 Mg/2 Ml Inj IV 80 mg Q8HR VLADIMIR Administration Morphine Sulfate 2 mg 12/21/21 06:15 12/23/21 08:05 Morphine 2 Mg/1 Ml Inj IV 2 mg Q4H PRN Administration Pain, Moderate (4-6) Ondansetron HCl 4 mg 12/21/21 06:15 Ondansetron 4 Mg/2 Ml Inj IV Q8H PRN Nausea And Vomiting Sodium Bicarbonate 650 mg 12/22/21 20:00 12/23/21 08:25 Sodium Bicarbonate 650 Mg Tab PO 650 mg TID VLADIMIR Administration Sodium Chloride 10 ml 12/21/21 10:00 12/23/21 10:04 Sodium Chloride 0.9% 10 Ml Flush Syringe IV 10 ml BID VLADIMIR Administration Sodium Chloride 10 ml 12/21/21 06:15 Sodium Chloride 0.9% 10 Ml Flush Syringe IV PRN PRN LINE FLUSH Valsartan 160 mg 12/22/21 22:00 12/23/21 10:02 Valsartan 160mg Tab PO 160 mg DAILY VLADIMIR Administration
--- NOTE | 2021-12-23 16:56 | Progress Note ---
<ALADRIANEllyn - Last Filed: 12/23/21 16:52> Assessment and Plan Assessment and plan: This is a transgendered female admitted with acute liver failure, rhabdomyolysis, s/p 4 compartment fasciotomy to left lower extremity Neuro: Neuropathy -Avoid delirium -Reorientation as needed -Maintain sleep-wake cycle -As needed analgesia -Neurology consulted, appreciate recommendations -Gabapentin Cardiac: ST, undiagnosed HTN -Blood pressure monitoring per protocol -Valsartan -PRN hydralazine Respiratory: NAD -Pulmanory hygiene -Supplemental oxygen as needed -SPO2 monitoring GI: Acute liver failure -GI consulted, appreciate recommendations -Per GI: Suspect due to rhabdomyolysis given elevated creatinine kinase levels -If ALT continues to rise recommend MRCP -Abdominal ultrasound shows mild diffuse biliary dilation, obstruction to lesion of the distal common bile duct cannot be excluded consider MRCP, no evidence of gallstones within the gallbladder -24 hours -250 mL -PPI -Regular diet -BR: colace -Trend LFTs : Rhabdomyolysis -Nephrology consulted, appreciate recommendations -Strict intake and output -Renally dose medications -Avoid nephrotoxic medications -MIVF -Sodium bicarb -Trend BMP, CK ID: NAD -s/p abx therapy with levaquin (12/21-12/23) -f/u blood culture -Monitor WBC and temperature curve Endo: NAD -Avoid hypoglycemia -SSI -Accu-Cheks q. xxx -Long-acting insulin, titrate as needed Heme: NAD -Trend CBC -Transfuse hemoglobin less than 7 -Monitor for signs of bleeding -Heparin subq MS: Compartment syndrome to LLE -Vascular surgery consulted, appreciate recommendations -s/p self admin of IM abx to midthigh -c/o pain, decreased sensation, pulses were dopplarable, paralysis, mottled skin -s/p 4 compartment tracheotomy on 12/21 with vascular surgery -Bilateral lower extremity Doppler ultrasound showed no DVT -Left lower extremity CT with contrast showed appearance of posterior soft tissue complex cellulitis with small subcutaneous lymph nodes, no drainable fluid collections present, contusion could have similar appearance -Bilateral lower extremity arterial duplex showed no significant lower extremity peripheral artery disease -Normal ABIs The high probability of a clinically significant, sudden or life threatening deterioration of the [] system(s) required my full and direct attention, intervention and personal management. The aggregate critical care time was [] minutes. This time is in addition to time spent performing reported procedures but includes the following: [x] Data Review and interpretation [x] Patient assessment and monitoring of vital signs [x] Documentation [x] Medication orders and management Disposition Plan: transfer to floor Total Time Spent with Patient (Minutes): 60 History Interval history: This is a 36 year old transgendered female undergoing gender transformation with silicone injection to buttocks (2016) and breast implants, heavy drinker on the weekends (bottle of vodka) who presented to [facility] on 12/21 because o f adverse drug reaction after reportedly self administration of rocephin and PCN for sore throat. Patient reportedly collapsed while checking in to the emergency department, has complains of severe 10 out of 10 pain in left thigh and has noticeable mottling of skin in thigh and left lower abdomen. Patient underwent a CT of the left leg which showed possible cellulitis with no drainable fluid collection and was started on empiric antibiotics. Patient admitted to the hospital service with consult to surgery with left leg cellulitis and possible allergic reaction. Hospital course to date: 12/21: Venous ultrasound shows no DVT, Vascular surgery consulted who performed a fasciotomy and plan to transfer patient to IMCU post intervention. Neurology consulted 12/22: Transfer to ICU, GI and neurology consulted. 12/23: Patient will be transferred back to the floor from ICU. Her liver enzymes and creatinine are trending down. Will be started on gabapentin per neurology recommendations and antibiotics discontinued. Hospitalist Physical - Constitutional Vitals: Temp Pulse Resp BP Pulse Ox 98.0 F 91 H 23 151/97 97 12/23/21 12:00 12/23/21 16:00 12/23/21 16:00 12/23/21 16:00 12/23/21 16:00 General appearance: Present: no acute distress - EENT Eyes: Present: PERRL, EOM intact ENT: hearing intact, clear oral mucosa, dentition normal - Neck Neck: Present: normal ROM - Respiratory Respiratory effort: normal Respiratory: bilateral: CTA - Cardiovascular Rhythm: regular Heart Sounds: Present: S1 & S2. Absent: systolic murmur, diastolic murmur - Extremities Extremity abnormal: edema, cyanosis, pulses diminished, tenderness Peripheral Pulses: abnormal - Peripheral pulses dorsalis pedis Pulse Strength: 2+ posterial tibial Pulse Strength: 2+ - Abdominal General gastrointestinal: soft, non-tender, non-distended, normal bowel sounds - Integumentary Integumentary: Present: warm, dry - Psychiatric Psychiatric: appropriate mood/affect, cooperative - Neurologic Neurologic: CNII-XII intact, no focal deficits, moves all extremities - Allied Health Allied health notes reviewed: nursing, social work Results - Labs CBC & Chem 7: 12/23/21 04:49 12/23/21 04:49 Labs: Laboratory Last Values WBC 14.2 K/mm3 (4.5-11.0) H 12/23/21 04:49 RBC 4.32 M/mm3 (3.65-5.03) 12/23/21 04:49 Hgb 14.1 gm/dl (11.8-15.2) 12/23/21 04:49 Hct 42.4 % (35.5-45.6) D 12/23/21 04:49 MCV 98 fl (84-94) H 12/23/21 04:49 MCH 33 pg (28-32) H 12/23/21 04:49 MCHC 33 % (32-34) 12/23/21 04:49 RDW 12.7 % (13.2-15.2) L 12/23/21 04:49 Plt Count 187 K/mm3 (140-440) 12/23/21 04:49 Lymph % (Auto) 7.8 % (13.4-35.0) L 12/23/21 04:49 [place] % (Auto) 10.6 % (0.0-7.3) H 12/23/21 04:49 Eos % (Auto) 0.0 % (0.0-4.3) 12/23/21 04:49 Baso % (Auto) 0.0 % (0.0-1.8) 12/23/21 04:49 Lymph # (Auto) 1.1 K/mm3 (1.2-5.4) L 12/23/21 04:49 [place] # (Auto) 1.5 K/mm3 (0.0-0.8) H 12/23/21 04:49 Eos # (Auto) 0.0 K/mm3 (0.0-0.4) 12/23/21 04:49 Baso # (Auto) 0.0 K/mm3 (0.0-0.1) 12/23/21 04:49 Add Manual Diff Complete 12/20/21 23:35 Total Counted 100 12/20/21 23:35 Seg Neutrophils % 81.6 % (40.0-70.0) H 12/23/21 04:49 Seg Neuts % (Manual) 52.0 % (40.0-70.0) 12/20/21 23:35 Band Neutrophils % 0 % 12/20/21 23:35 Lymphocytes % (Manual) 41.0 % (13.4-35.0) H 12/20/21 23:35 Reactive Lymphs % (Man) 0 % 12/20/21 23:35 Monocytes % (Manual) 7.0 % (0.0-7.3) 12/20/21 23:35 Eosinophils % (Manual) 0 % (0.0-4.3) 12/20/21 23:35 Basophils % (Manual) 0 % (0.0-1.8) 12/20/21 23:35 Metamyelocytes % 0 % 12/20/21 23:35 Myelocytes % 0 % 12/20/21 23:35 Promyelocytes % 0 % 12/20/21 23:35 Blast Cells % 0 % 12/20/21 23:35 Nucleated RBC % Not Reportable 12/20/21 23:35 Seg Neutrophils # 11.6 K/mm3 (1.8-7.7) H 12/23/21 04:49 Seg Neutrophils # Man 7.3 K/mm3 (1.8-7.7) 12/20/21 23:35 Band Neutrophils # 0.0 K/mm3 12/20/21 23:35 Lymphocytes # (Manual) 5.7 K/mm3 (1.2-5.4) H 12/20/21 23:35 Abs React Lymphs (Man) 0.0 K/mm3 12/20/21 23:35 Monocytes # (Manual) 1.0 K/mm3 (0.0-0.8) H 12/20/21 23:35 Eosinophils # (Manual) 0.0 K/mm3 (0.0-0.4) 12/20/21 23:35 Basophils # (Manual) 0.0 K/mm3 (0.0-0.1) 12/20/21 23:35 Metamyelocytes # 0.0 K/mm3 12/20/21 23:35 Myelocytes # 0.0 K/mm3 12/20/21 23:35 Promyelocytes # 0.0 K/mm3 12/20/21 23:35 Blast Cells # 0.0 K/mm3 12/20/21 23:35 WBC Morphology Not Reportable 12/20/21 23:35 Hypersegmented Neuts Not Reportable 12/20/21 23:35 Hyposegmented Neuts Not Reportable 12/20/21 23:35 Hypogranular Neuts Not Reportable 12/20/21 23:35 Smudge Cells Not Reportable 12/20/21 23:35 Toxic Granulation Not Reportable 12/20/21 23:35 Toxic Vacuolation Not Reportable 12/20/21 23:35 Dohle Bodies Not Reportable 12/20/21 23:35 Pelger-Huet Anomaly Not Reportable 12/20/21 23:35 [place] Rods Not Reportable 12/20/21 23:35 Platelet Estimate Consistent w auto 12/20/21 23:35 Clumped Platelets Not Reportable 12/20/21 23:35 Plt Clumps, EDTA Not Reportable 12/20/21 23:35 Large Platelets Not Reportable 12/20/21 23:35 Giant Platelets Not Reportable 12/20/21 23:35 Platelet Satelliting Not Reportable 12/20/21 23:35 Plt Morphology Comment Not Reportable 12/20/21 23:35 RBC Morphology Normal 12/20/21 23:35 Dimorphic RBCs Not Reportable 12/20/21 23:35 Polychromasia Not Reportable 12/20/21 23:35 Hypochromasia Not Reportable 12/20/21 23:35 Poikilocytosis Not Reportable 12/20/21 23:35 Anisocytosis Not Reportable 12/20/21 23:35 Microcytosis Not Reportable 12/20/21 23:35 Macrocytosis Not Reportable 12/20/21 23:35 Spherocytes Not Reportable 12/20/21 23:35 Pappenheimer Bodies Not Reportable 12/20/21 23:35 Sickle Cells Not Reportable 12/20/21 23:35 Target Cells Not Reportable 12/20/21 23:35 Tear Drop Cells Not Reportable 12/20/21 23:35 Ovalocytes Not Reportable 12/20/21 23:35 Helmet Cells Not Reportable 12/20/21 23:35 [place] Bodies Not Reportable 12/20/21 23:35 [place] Rings Not Reportable 12/20/21 23:35 [place] Cells Not Reportable 12/20/21 23:35 Bite Cells Not Reportable 12/20/21 23:35 Crenated Cell Not Reportable 12/20/21 23:35 Elliptocytes Not Reportable 12/20/21 23:35 Acanthocytes (Spur) Not Reportable 12/20/21 23:35 Rouleaux Not Reportable 12/20/21 23:35 Hemoglobin C Crystals Not Reportable 12/20/21 23:35 Schistocytes Not Reportable 12/20/21 23:35 Malaria parasites Not Reportable 12/20/21 23:35 [place] Bodies Not Reportable 12/20/21 23:35 Hem Pathologist Commnt No 12/20/21 23:35 PT 13.4 Sec. (12.2-14.9) 12/21/21 13:30 INR 0.92 (0.87-1.13) 12/21/21 13:30 APTT 25.8 Sec. (24.2-36.6) 12/21/21 13:30 Sodium 134 mmol/L (137-145) L 12/23/21 04:49 Potassium 4.6 mmol/L (3.6-5.0) 12/23/21 04:49 Chloride 96.9 mmol/L (98-107) L 12/23/21 04:49 Carbon Dioxide 25 mmol/L (22-30) 12/23/21 04:49 Anion Gap 17 mmol/L 12/23/21 04:49 BUN 14 mg/dL (9-20) 12/23/21 04:49 Creatinine 0.8 mg/dL (0.8-1.3) 12/23/21 04:49 Estimated GFR > 60 ml/min 12/23/21 04:49 BUN/Creatinine Ratio 18 % 12/23/21 04:49 Glucose 137 mg/dL (75-100) H 12/23/21 04:49 Lactic Acid 1.40 mmol/L (0.7-2.0) 12/21/21 13:30 Calcium 7.8 mg/dL (8.4-10.2) L 12/23/21 04:49 Magnesium 2.10 mg/dL (1.7-2.3) 12/23/21 04:49 Total Bilirubin 0.40 mg/dL (0.1-1.2) 12/23/21 04:49 Direct Bilirubin < 0.2 mg/dL (0-0.2) 12/21/21 22:47 AST 1024 units/L (5-40) H 12/23/21 04:49 ALT 441 units/L (7-56) H 12/23/21 04:49 Alkaline Phosphatase 54 units/L (35-129) 12/23/21 04:49 Ammonia 37.0 umol/L (25-60) 12/23/21 04:49 Total Creatine Kinase 41390 units/L (55-170) H 12/23/21 14:30 Total Protein 5.5 g/dL (6.3-8.2) L 12/23/21 04:49 Albumin 3.3 g/dL (3.9-5) L 12/23/21 04:49 Albumin/Globulin Ratio 1.5 % 12/23/21 04:49 Amylase 25 units/L (27-131) L 12/23/21 04:49 Lipase 10 units/L (13-60) L 12/23/21 04:49 Coronavirus (PCR) Negative (Negative) 12/22/21 11:40 Hep Bs Antigen Non-reactive (Negative) 12/21/21 13:30 Hep B Core IgM Ab Non-reactive (NonReactive) 12/21/21 13:30 Hepatitis C Antibody Non-reactive (NonReactive) 12/21/21 13:30 HIV 1&2 Antibody Rapid Non react (Non React) 12/22/21 16:42 HIV P24 Antigen Non react (Non React) 12/22/21 16:42 Microbiology: Microbiology 12/21/21 22:47 Peripheral/Venous Blood Culture - Preliminary NO GROWTH AFTER 24 HOURS 12/21/21 22:47 Peripheral/Venous Blood Culture - Preliminary NO GROWTH AFTER 24 HOURS Kaur/IV: Voiding Method Urinal Active Medications - Current Medications Current Medications: Generic Name Dose Route Start Last Admin Trade Name Freq PRN Reason Stop Dose Admin Acetaminophen 650 mg 12/21/21 06:15 12/22/21 22:37 Acetaminophen 325 Mg Tab PO 650 mg Q4H PRN Administration Pain MILD(1-3)/Fever >100.5/LEVINE Albuterol 2.5 mg 12/21/21 06:15 Albuterol 2.5 Mg/3 Ml Nebu IH Q3HRT PRN Shortness Of Breath Albuterol/Ipratropium 1 ampul 12/22/21 08:00 12/23/21 08:51 Ipratropium/Albuterol Sulfate 3 Ml Ampul.Neb IH 1 ampul BIDRT VLADIMIR Administration Diphenhydramine HCl 25 mg 12/21/21 06:24 Diphenhydramine 50 Mg/Ml Vial IV Q6H PRN Skin Irritation Docusate Sodium 100 mg 12/23/21 22:00 Docusate Sodium 100 Mg Cap PO BID VLADIMIR Famotidine 20 mg 12/21/21 10:00 12/23/21 10:03 Famotidine 20 Mg/2 Ml Inj IV 20 mg BID VLADIMIR Administration Heparin Sodium (Porcine) 5,000 unit 12/21/21 10:00 12/23/21 10:03 Heparin 5,000 Unit/1 Ml Vial SUB-Q 5,000 unit Q12HR VLADIMIR Administration Hydralazine HCl 10 mg 12/22/21 18:31 12/22/21 18:50 Hydralazine 20 Mg/1 Ml Inj IV 10 mg Q3HR PRN Administration Hypertension Hydromorphone HCl 0.5 mg 12/21/21 06:15 12/23/21 03:13 Hydromorphone 1 Mg/1 Ml Inj IV 0.5 mg Q3H PRN Administration Pain , Severe (7-10) Sodium Chloride 1,000 mls @ 200 mls/hr 12/22/21 18:30 12/23/21 10:02 Nacl 0.9% 1000 Ml IV 200 mls/hr DIRECT VLADIMIR Administration Methylprednisolone Sodium Succinate 80 mg 12/22/21 18:59 12/23/21 14:45 Methylprednisolone Sod Succinate 125 Mg/2 Ml Inj IV 80 mg Q8HR VLADIMIR Administration Morphine Sulfate 2 mg 12/21/21 06:15 12/23/21 11:59 Morphine 2 Mg/1 Ml Inj IV 2 mg Q4H PRN Administration Pain, Moderate (4-6) Ondansetron HCl 4 mg 12/21/21 06:15 Ondansetron 4 Mg/2 Ml Inj IV Q8H PRN Nausea And Vomiting Sodium Bicarbonate 650 mg 12/22/21 20:00 12/23/21 14:45 Sodium Bicarbonate 650 Mg Tab PO 650 mg TID VLADIMIR Administration Sodium Chloride 10 ml 12/21/21 10:00 12/23/21 10:04 Sodium Chloride 0.9% 10 Ml Flush Syringe IV 10 ml BID VLADIMIR Administration Sodium Chloride 10 ml 12/21/21 06:15 Sodium Chloride 0.9% 10 Ml Flush Syringe IV PRN PRN LINE FLUSH Valsartan 160 mg 12/22/21 22:00 12/23/21 10:02 Valsartan 160mg Tab PO 160 mg DAILY VLADIMIR Administration <RENATE KONG - Last Filed: 12/30/21 08:57> Assessment and Plan Assessment and plan: I saw and evaluated the patient. Discussed with the nurse practitioner and agree with their findings and plan as documented in this note. Hospitalist Physical - Constitutional Vitals: Temp Pulse Resp BP Pulse Ox 99.5 F 101 H 20 123/72 96 12/29/21 23:33 12/29/21 19:50 12/29/21 23:33 12/29/21 23:33 12/29/21 23:33 Results - Labs CBC & Chem 7: 12/30/21 04:49 12/30/21 04:49 Labs: Laboratory Last Values WBC 20.6 K/mm3 (4.5-11.0) H 12/30/21 04:49 RBC 3.62 M/mm3 (3.65-5.03) L 12/30/21 04:49 Hgb 11.7 gm/dl (11.8-15.2) L 12/30/21 04:49 Hct 34.7 % (35.5-45.6) L 12/30/21 04:49 MCV 96 fl (84-94) H 12/30/21 04:49 MCH 32 pg (28-32) 12/30/21 04:49 MCHC 34 % (32-34) 12/30/21 04:49 RDW 13.0 % (13.2-15.2) L 12/30/21 04:49 Plt Count 368 K/mm3 (140-440) 12/30/21 04:49 Lymph % (Auto) 7.8 % (13.4-35.0) L 12/23/21 04:49 [place] % (Auto) 10.6 % (0.0-7.3) H 12/23/21 04:49 Eos % (Auto) 0.0 % (0.0-4.3) 12/23/21 04:49 Baso % (Auto) 0.0 % (0.0-1.8) 12/23/21 04:49 Lymph # (Auto) 1.1 K/mm3 (1.2-5.4) L 12/23/21 04:49 [place] # (Auto) 1.5 K/mm3 (0.0-0.8) H 12/23/21 04:49 Eos # (Auto) 0.0 K/mm3 (0.0-0.4) 12/23/21 04:49 Baso # (Auto) 0.0 K/mm3 (0.0-0.1) 12/23/21 04:49 Add Manual Diff Complete 12/30/21 04:49 Total Counted 100 12/30/21 04:49 Seg Neutrophils % 81.6 % (40.0-70.0) H 12/23/21 04:49 Seg Neuts % (Manual) 83.0 % (40.0-70.0) H 12/30/21 04:49 Band Neutrophils % 2.0 % 12/30/21 04:49 Lymphocytes % (Manual) 5.0 % (13.4-35.0) L 12/30/21 04:49 Reactive Lymphs % (Man) 0 % 12/30/21 04:49 Monocytes % (Manual) 8.0 % (0.0-7.3) H 12/30/21 04:49 Eosinophils % (Manual) 0 % (0.0-4.3) 12/30/21 04:49 Basophils % (Manual) 0 % (0.0-1.8) 12/30/21 04:49 Metamyelocytes % 2.0 % 12/30/21 04:49 Myelocytes % 0 % 12/30/21 04:49 Promyelocytes % 0 % 12/30/21 04:49 Blast Cells % 0 % 12/30/21 04:49 Nucleated RBC % Not Reportable 12/30/21 04:49 Seg Neutrophils # 11.6 K/mm3 (1.8-7.7) H 12/23/21 04:49 Seg Neutrophils # Man 17.1 K/mm3 (1.8-7.7) H 12/30/21 04:49 Band Neutrophils # 0.4 K/mm3 12/30/21 04:49 Lymphocytes # (Manual) 1.0 K/mm3 (1.2-5.4) L 12/30/21 04:49 Abs React Lymphs (Man) 0.0 K/mm3 12/30/21 04:49 Monocytes # (Manual) 1.6 K/mm3 (0.0-0.8) H 12/30/21 04:49 Eosinophils # (Manual) 0.0 K/mm3 (0.0-0.4) 12/30/21 04:49 Basophils # (Manual) 0.0 K/mm3 (0.0-0.1) 12/30/21 04:49 Metamyelocytes # 0.4 K/mm3 12/30/21 04:49 Myelocytes # 0.0 K/mm3 12/30/21 04:49 Promyelocytes # 0.0 K/mm3 12/30/21 04:49 Blast Cells # 0.0 K/mm3 12/30/21 04:49 WBC Morphology Not Reportable 12/30/21 04:49 Hypersegmented Neuts Not Reportable 12/30/21 04:49 Hyposegmented Neuts Rare 12/30/21 04:49 Hypogranular Neuts Not Reportable 12/30/21 04:49 Smudge Cells Not Reportable 12/30/21 04:49 Toxic Granulation Not Reportable 12/30/21 04:49 Toxic Vacuolation Not Reportable 12/30/21 04:49 Dohle Bodies Not Reportable 12/30/21 04:49 Pelger-Huet Anomaly Not Reportable 12/30/21 04:49 [place] Rods Not Reportable 12/30/21 04:49 Platelet Estimate Consistent w auto 12/30/21 04:49 Clumped Platelets Not Reportable 12/30/21 04:49 Plt Clumps, EDTA Not Reportable 12/30/21 04:49 Large Platelets Rare 12/30/21 04:49 Giant Platelets Not Reportable 12/30/21 04:49 Platelet Satelliting Not Reportable 12/30/21 04:49 Plt Morphology Comment Not Reportable 12/30/21 04:49 RBC Morphology Not Reportable 12/30/21 04:49 Dimorphic RBCs Not Reportable 12/30/21 04:49 Polychromasia Not Reportable 12/30/21 04:49 Hypochromasia Not Reportable 12/30/21 04:49 Poikilocytosis Not Reportable 12/30/21 04:49 Anisocytosis Rare 12/30/21 04:49 Microcytosis Not Reportable 12/30/21 04:49 Macrocytosis Rare 12/30/21 04:49 Spherocytes Not Reportable 12/30/21 04:49 Pappenheimer Bodies Not Reportable 12/30/21 04:49 Sickle Cells Not Reportable 12/30/21 04:49 Target Cells Not Reportable 12/30/21 04:49 Tear Drop Cells Not Reportable 12/30/21 04:49 Ovalocytes Not Reportable 12/30/21 04:49 Helmet Cells Not Reportable 12/30/21 04:49 [place] Bodies Not Reportable 12/30/21 04:49 [place] Rings Not Reportable 12/30/21 04:49 [place] Cells Not Reportable 12/30/21 04:49 Bite Cells Not Reportable 12/30/21 04:49 Crenated Cell Not Reportable 12/30/21 04:49 Elliptocytes Not Reportable 12/30/21 04:49 Acanthocytes (Spur) Not Reportable 12/30/21 04:49 Rouleaux Not Reportable 12/30/21 04:49 Hemoglobin C Crystals Not Reportable 12/30/21 04:49 Schistocytes Not Reportable 12/30/21 04:49 Malaria parasites Not Reportable 12/30/21 04:49 [place] Bodies Not Reportable 12/30/21 04:49 Hem Pathologist Commnt No 12/30/21 04:49 PT 13.4 Sec. (12.2-14.9) 12/21/21 13:30 INR 0.92 (0.87-1.13) 12/21/21 13:30 APTT 25.8 Sec. (24.2-36.6) 12/21/21 13:30 Sodium 136 mmol/L (137-145) L 12/30/21 04:49 Potassium 3.4 mmol/L (3.6-5.0) L 12/30/21 04:49 Chloride 100.1 mmol/L (98-107) 12/30/21 04:49 Carbon Dioxide 26 mmol/L (22-30) 12/30/21 04:49 Anion Gap 13 mmol/L 12/30/21 04:49 BUN 7 mg/dL (9-20) L 12/30/21 04:49 Creatinine 0.5 mg/dL (0.8-1.3) L 12/30/21 04:49 Estimated GFR > 60 ml/min 12/30/21 04:49 BUN/Creatinine Ratio 14 % 12/30/21 04:49 Glucose 119 mg/dL (75-100) H 12/30/21 04:49 Lactic Acid 1.40 mmol/L (0.7-2.0) 12/21/21 13:30 Calcium 7.6 mg/dL (8.4-10.2) L 12/30/21 04:49 Phosphorus 2.80 mg/dL (2.5-4.5) 12/24/21 05:17 Magnesium 2.20 mg/dL (1.7-2.3) 12/24/21 05:17 Total Bilirubin 0.40 mg/dL (0.1-1.2) 12/28/21 09:56 Direct Bilirubin < 0.2 mg/dL (0-0.2) 12/21/21 22:47 AST 144 units/L (5-40) H 12/28/21 09:56 ALT 247 units/L (7-56) H 12/28/21 09:56 Alkaline Phosphatase 70 units/L (35-129) 12/28/21 09:56 Ammonia 37.0 umol/L (25-60) 12/23/21 04:49 Total Creatine Kinase 4125 units/L (55-170) H 12/30/21 04:49 Total Protein 4.8 g/dL (6.3-8.2) L 12/28/21 09:56 Albumin 2.9 g/dL (3.9-5) L 12/28/21 09:56 Albumin/Globulin Ratio 1.5 % 12/28/21 09:56 Amylase 25 units/L (27-131) L 12/23/21 04:49 Lipase 10 units/L (13-60) L 12/23/21 04:49 Coronavirus (PCR) Negative (Negative) 12/22/21 11:40 Hepatitis A IgM Ab Nonreactive (NonReactive) 12/21/21 13:30 Hep Bs Antigen Non-reactive (Negative) 12/21/21 13:30 Hep B Core IgM Ab Non-reactive (NonReactive) 12/21/21 13:30 Hepatitis C Antibody Non-reactive (NonReactive) 12/21/21 13:30 HIV 1&2 Antibody Rapid Non react (Non React) 12/22/21 16:42 HIV P24 Antigen Non react (Non React) 12/22/21 16:42 Microbiology: Microbiology 12/28/21 Unknown Leg - Left Surgical Biopsy Culture - Preliminary Kaur/IV: Voiding Method Toilet Active Medications - Current Medications Current Medications: Generic Name Dose Route Start Last Admin Trade Name Freq PRN Reason Stop Dose Admin Albuterol 2.5 mg 12/21/21 06:15 Albuterol 2.5 Mg/3 Ml Nebu IH Q3HRT PRN Shortness Of Breath Albuterol/Ipratropium 1 ampul 12/22/21 08:00 12/30/21 08:39 Ipratropium/Albuterol Sulfate 3 Ml Ampul.Neb IH 1 ampul BIDRT VLADIMIR Administration Diphenhydramine HCl 25 mg 12/21/21 06:24 12/26/21 18:49 Diphenhydramine 50 Mg/Ml Vial IV 25 mg Q6H PRN Administration Skin Irritation Docusate Sodium 100 mg 12/23/21 22:00 12/29/21 21:05 Docusate Sodium 100 Mg Cap PO 100 mg BID VLADIMIR Administration Famotidine 20 mg 12/26/21 10:00 12/29/21 21:05 Famotidine 20 Mg Tab PO 20 mg BID VLADIMIR Administration Gabapentin 100 mg 12/23/21 22:30 12/30/21 05:46 Gabapentin 100 Mg Cap PO 12/30/21 23:59 100 mg Q8HR VLADIMIR Administration Gabapentin 100 mg 12/31/21 06:00 Gabapentin 100 Mg Cap PO 01/04/22 14:01 0600,1400 VLADIMIR Gabapentin 300 mg 12/31/21 22:00 Gabapentin 300 Mg Cap PO 01/04/22 22:01 QHS VLADIMIR Gabapentin 300 mg 01/05/22 08:00 Gabapentin 300 Mg Cap PO TID@0800,1600,2200 VLADIMIR Heparin Sodium (Porcine) 5,000 unit 12/21/21 10:00 12/29/21 21:04 Heparin 5,000 Unit/1 Ml Vial SUB-Q 5,000 unit Q12HR VLADIMIR Administration Hydralazine HCl 10 mg 12/22/21 18:31 12/22/21 18:50 Hydralazine 20 Mg/1 Ml Inj IV 10 mg Q3HR PRN Administration Hypertension Hydromorphone HCl 0.5 mg 12/21/21 06:15 12/30/21 01:08 Hydromorphone 1 Mg/1 Ml Inj IV 0.5 mg Q3H PRN Administration Pain , Severe (7-10) Sodium Chloride 1,000 mls @ 200 mls/hr 12/22/21 18:30 12/30/21 05:46 Nacl 0.9% 1000 Ml IV 200 mls/hr DIRECT VLADIMIR Administration Morphine Sulfate 2 mg 12/21/21 06:15 12/29/21 21:18 Morphine 2 Mg/1 Ml Inj IV 2 mg Q4H PRN Administration Pain, Moderate (4-6) Ondansetron HCl 4 mg 12/21/21 06:15 Ondansetron 4 Mg/2 Ml Inj IV Q8H PRN Nausea And Vomiting Sodium Chloride 10 ml 12/21/21 10:00 12/29/21 21:05 Sodium Chloride 0.9% 10 Ml Flush Syringe IV 10 ml BID VLADIMIR Administration Sodium Chloride 10 ml 12/21/21 06:15 12/30/21 01:09 Sodium Chloride 0.9% 10 Ml Flush Syringe IV 10 ml PRN PRN Administration LINE FLUSH Valsartan 160 mg 12/22/21 22:00 12/29/21 09:35 Valsartan 160mg Tab PO 160 mg DAILY VLADIMIR Administration Nutrition/Malnutrition Assess - Dietary Evaluation Nutrition/Malnutrition Findings: Nutrition Notes Start: 12/28/21 16:45 Freq: Status: Active Protocol: Document 12/28/21 16:45 OPAL (Rec: 12/28/21 17:00 OPAL [id number]) Nutrition Notes Need for Assessment generated from: LOS Initial or Follow up Assessment Current Diagnosis Hypertension Other Pertinent Diagnosis Rabdomyolysis, Liver Failure, s/p L-LE 4 Compartment Fasciotomy. Current Diet NPO (since 12/28 00:01). Labs/Tests 12/28: Cl 97.3, Crea 0.7, Ca 8 .0. Pertinent Medications 12/28: Nutritionally unremarkable. 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 Weight Status Obese Subjective/Other Information RD consult for LOS assessment. PT's PO intake of meals has been Fair (>50%), according to ADL notes. Pt has been on NPO in preparation for procedure on 12/28. Pt is on Room Air, O2 saturation @ 97%, according to Physical Assessment History notes. Pt presents L-LE Pitting Edema 3+, according to Physical Assessment History notes. Pt presents L-LE Vascular Wound, according to Physical Assessment History notes. Percent of energy/protein needs met: Pt currently on NPO. Prescribed Regular Diet provides for energy/protein needs (2,289 Kcal/89 g) during LOS; additionally, Dietary Supplements will support wound healing processes with 190 Kcal and 5 g of protein. Burn Absent Trauma Absent GI Symptoms None Food Allergy No Skin Integrity/Comment L-LE Vascular Wound Current % PO Fair (50-74%) Minimum of two criteria No #1 Nutrition Diagnosis Increased nutrient needs ( specify in comment below) Comments: Protein to support wound healing processes. Etiology L-LE 4 Compartment Fascitis. As Evidenced by Signs and Symptoms L-LE Vascular Wound Is patient on ventilator? No Is Patient Ambulatory and/or Out of Bed No REE-([facility]-confined to bed) [phone] Kcal/Kg value to use for calculation 19 Approximate Energy Requirements Using 1637 kcal/Kg Calculation Used for Recommendations Kcal/kg Additional Notes Protein: 1.25-1.5 g/Kg AdjBW; 85-114 g/day. Fluids: 1 ml/Kcal, or as per MD. Nutrition Intervention Change Diet Order: When pertinent, advance to Regular Diet. Add Supplement/Snack (indicate name/kcal When pertinent, start 28.8 pkt /protein ) Calvin; BID. Provides kCal: 190 Provides Protein (gm) 5 Goal #1 Support, through dietary supplementation, wound healing processes during LOS. Goal #2 Adjust the dietary intervention to better serve Pt's needs and clinical conditions during LOS. Goal #3 Maintain body weight within +/ -3% of admission body weight during LOS. Follow-Up By: 12/30/21 Additional Comments When pertinent, continue monitoring food tolerance, %PO intake of meals, and BM.
[2021-12-23] MEDS: DOCUSATE SODIUM 100 MG CAP PO SCH (22:45)
[2021-12-24] MEDS: GABAPENTIN 100 MG CAP PO SCH ×4 (01:55→21:50)
[2021-12-24] MEDS: MORPHINE 2 MG/1 ML INJ IV PRN ×2 (01:55→10:33)
[2021-12-24] MEDS: SODIUM CHLORIDE 0.9% 1000 ML 1,000 ML IV SCH ×4 (04:05→23:32)
[2021-12-24] MEDS: methylPREDNISolone Sod Succinate 125 MG/2 ML INJ IV SCH ×3 (05:24→21:49)
[2021-12-24 05:49] LABS: Hematocrit 37.5 % (35.5-45.6); Hemoglobin 12.6 gm/dl (11.8-15.2); Mean Corpuscular HGB Conc 34 % (32-34); Mean Corpuscular Volume 98 fl (84-94); Platelet Count 186 K/mm3 (140-440); Red Blood Count 3.82 M/mm3 (3.65-5.03); Red Cell Distribution Width 12.8 % (13.2-15.2)
[2021-12-24 06:14] LABS: Alanine Aminotransferase 416 units/L (7-56); Albumin 3.2 g/dL (3.9-5); BUN/Creatinine Ratio 24; Blood Urea Nitrogen 12 mg/dL (9-20); Calcium 8.3 mg/dL (8.4-10.2); Hemolysis Index 5
[2021-12-24] MEDS: IPRATROPIUM/ALBUTEROL SULFATE 3 ML AMPUL.NEB IH SCH ×2 (08:56→20:50)
--- NOTE | 2021-12-24 09:51 | Progress Note ---
Assessment and Plan # Acute Rhabdomyolysis in setting of left leg compartment syndrome: - continue aggressive IVF (NS at 200ml/min reasonable), CK downtrending appropriately - s/p fasciotomy per Dr. Swann/Lamin, seymour - supportive measures per primary - can hold lasix, use prn if respiratory status worsening/volume overload developing, but note appropriate urine output (1.8L) - can hold NaHCO3 as acid/base stable - follow renal function, electrolytes- currently stable # Transaminitis: in setting of rhabdomyolysis, note GI input Subjective Date of service: 12/24/21 Principal diagnosis: abnormal liver enzymes Interval history: No renal related clinical changes noted. Resting in bed. Objective - Exam Narrative Exam: General appearance: well-developed, well-nourished EENT: ATNC Neck: Present: neck supple, trachea midline Respiratory: Clear to Ascultation Heart: regular, S1S2 Gastrointestinal: Present: normoactive bowel sounds Integumentary: no rash, warm and dry Neurologic: no focal deficit, no asterixis - Vital Signs Vital signs: Vital Signs - 12hr 12/23/21 12/24/21 22:30 04:44 Temperature 97.3 F L Pulse Rate 76 Respiratory 18 Rate Blood Pressure 143/92 O2 Sat by Pulse 98 100 Oximetry - Lab 12/24/21 05:17 12/24/21 05:17 Most recent lab results Calcium 8.3 mg/dL (8.4-10.2) L 12/24/21 05:17 Phosphorus 2.80 mg/dL (2.5-4.5) 12/24/21 05:17 Magnesium 2.20 mg/dL (1.7-2.3) 12/24/21 05:17 Medications & Allergies - Medications Allergies/Adverse Reactions: Allergies ceftriaxone [From Rocephin] Allergy (Severe, Verified 12/23/21 10:23) Unknown SEVERE RASH MOTTLING OF THE SKIN POST ADMINISTRATION OF IM [employer] Penicillins Allergy (Severe, Verified 12/23/21 10:23) Unknown SEVERE RASH MOTTLING OF THE SKIN POST ADMINISTRATION OF IM [employer] Home Medications: Home Medications Medication Instructions Recorded Confirmed Last Taken Type No Known Home Medications [No 12/21/21 12/21/21 Unknown History Reported Home Medications] Active Medications: Generic Name Dose Route Start Last Admin Trade Name Freq PRN Reason Stop Dose Admin Albuterol 2.5 mg 12/21/21 06:15 Albuterol 2.5 Mg/3 Ml Nebu IH Q3HRT PRN Shortness Of Breath Albuterol/Ipratropium 1 ampul 12/22/21 08:00 12/24/21 08:56 Ipratropium/Albuterol Sulfate 3 Ml Ampul.Neb IH 1 ampul BIDRT VLADIMIR Administration Diphenhydramine HCl 25 mg 12/21/21 06:24 Diphenhydramine 50 Mg/Ml Vial IV Q6H PRN Skin Irritation Docusate Sodium 100 mg 12/23/21 22:00 12/23/21 22:45 Docusate Sodium 100 Mg Cap PO 100 mg BID VLADIMIR Administration Famotidine 20 mg 12/21/21 10:00 12/23/21 22:45 Famotidine 20 Mg/2 Ml Inj IV 20 mg BID VLADIMIR Administration Gabapentin 100 mg 12/23/21 22:30 12/24/21 05:21 Gabapentin 100 Mg Cap PO 12/30/21 22:29 Not Given Q8HR VLADIMIR Gabapentin 100 mg 12/31/21 10:00 Gabapentin 100 Mg Cap PO 01/05/22 09:59 BID VLADIMIR Gabapentin 300 mg 12/31/21 18:00 Gabapentin 300 Mg Cap PO 01/05/22 17:59 QPM VLADIMIR Heparin Sodium (Porcine) 5,000 unit 12/21/21 10:00 12/23/21 22:44 Heparin 5,000 Unit/1 Ml Vial SUB-Q 5,000 unit Q12HR VLADIMIR Administration Hydralazine HCl 10 mg 12/22/21 18:31 12/22/21 18:50 Hydralazine 20 Mg/1 Ml Inj IV 10 mg Q3HR PRN Administration Hypertension Hydromorphone HCl 0.5 mg 12/21/21 06:15 12/23/21 03:13 Hydromorphone 1 Mg/1 Ml Inj IV 0.5 mg Q3H PRN Administration Pain , Severe (7-10) Sodium Chloride 1,000 mls @ 200 mls/hr 12/22/21 18:30 12/24/21 04:05 Nacl 0.9% 1000 Ml IV 200 mls/hr DIRECT VLADIMIR Administration Methylprednisolone Sodium Succinate 80 mg 12/22/21 18:59 12/24/21 05:24 Methylprednisolone Sod Succinate 125 Mg/2 Ml Inj IV 80 mg Q8HR VLADIMIR Administration Morphine Sulfate 2 mg 12/21/21 06:15 12/24/21 01:55 Morphine 2 Mg/1 Ml Inj IV 2 mg Q4H PRN Administration Pain, Moderate (4-6) Ondansetron HCl 4 mg 12/21/21 06:15 Ondansetron 4 Mg/2 Ml Inj IV Q8H PRN Nausea And Vomiting Sodium Bicarbonate 650 mg 12/22/21 20:00 12/23/21 20:18 Sodium Bicarbonate 650 Mg Tab PO 650 mg TID VLADIMIR Administration Sodium Chloride 10 ml 12/21/21 10:00 12/23/21 22:45 Sodium Chloride 0.9% 10 Ml Flush Syringe IV 10 ml BID VLADIMIR Administration Sodium Chloride 10 ml 12/21/21 06:15 Sodium Chloride 0.9% 10 Ml Flush Syringe IV PRN PRN LINE FLUSH Valsartan 160 mg 12/22/21 22:00 12/23/21 10:02 Valsartan 160mg Tab PO 160 mg DAILY VLADIMIR Administration
[2021-12-24] MEDS: DOCUSATE SODIUM 100 MG CAP PO SCH ×2 (10:18→21:50)
[2021-12-24] MEDS: HEPARIN 5,000 UNIT/1 ML VIAL SUB-Q SCH ×2 (10:18→21:50)
[2021-12-24] MEDS: FAMOTIDINE 20 MG/2 ML INJ IV SCH ×2 (10:18→21:49)
[2021-12-24] MEDS: SODIUM BICARBONATE 650 MG TAB PO SCH (10:18)
[2021-12-24] MEDS: VALSARTAN 160MG TAB PO SCH (10:22)
--- NOTE | 2021-12-24 12:30 | Progress Note ---
Assessment and Plan The patient has some dusky muscle within the left posterior compartment however there is no padma necrosis. There is too much edema to close the incisions at this time. Patient will likely return to the operating room on Monday or for possible closure or wound VAC placement. I was able to communicate with the plan with the patient through translation from his family member. The patient expressed understanding and agrees. Subjective Date of service: 12/24/21 Principal diagnosis: abnormal liver enzymes Interval history: Patient complains of some incisional pain however she has no additional complaints. No significant events overnight. Objective - Constitutional Vitals: Vital Signs - 12hr 12/24/21 12/24/21 12/24/21 04:44 08:56 10:22 Temperature 97.3 F L Pulse Rate 76 Pulse Rate [ 94 H Anterior Bilateral Throughout] Respiratory 18 Rate Respiratory 18 Rate [Anterior Bilateral Throughout] Blood Pressure 143/92 140/87 O2 Sat by Pulse 100 95 Oximetry - Respiratory Respiratory effort: normal - Cardiovascular Rhythm: regular Extremities: pulses intact (Palpable left dorsalis pedis and posterior tibial pulses), abnormal (Left leg incision dressings were changed. No active bleeding. Muscle within the posterior compartments with some duskiness however there was no frankly necrotic muscle.) Extremity abnormal: edema (Edema of the left foot. There is also continued edema of the lower leg muscles as well as some edema within the thigh however there is no evidence of thigh compartment syndrome), other (Patient has sensation of the left foot but diminished motor) - Labs CBC & Chem 7: 12/24/21 05:17 12/24/21 05:17 Labs: Abnormal lab results 12/23/21 12/23/21 12/24/21 Range/Units 14:30 23:33 05:17 WBC 16.3 H (4.5-11.0) K/mm3 MCV 98 H (84-94) fl MCH 33 H (28-32) pg RDW 12.8 L (13.2-15.2) % Sodium (137-145) mmol/L Creatinine (0.8-1.3) mg/dL Glucose (75-100) mg/dL Calcium (8.4-10.2) mg/dL AST (5-40) units/L ALT (7-56) units/L Total Creatine Kinase 65447 H 54380 H (55-170) units/L Total Protein (6.3-8.2) g/dL Albumin (3.9-5) g/dL 12/24/21 Range/Units 05:17 WBC (4.5-11.0) K/mm3 MCV (84-94) fl MCH (28-32) pg RDW (13.2-15.2) % Sodium 135 L (137-145) mmol/L Creatinine 0.5 L (0.8-1.3) mg/dL Glucose 131 H (75-100) mg/dL Calcium 8.3 L (8.4-10.2) mg/dL AST 701 H (5-40) units/L ALT 416 H (7-56) units/L Total Creatine Kinase 41020 H (55-170) units/L Total Protein 5.1 L (6.3-8.2) g/dL Albumin 3.2 L (3.9-5) g/dL Medications & Allergies - Medications Allergies/Adverse Reactions: Allergies ceftriaxone [From Rocephin] Allergy (Severe, Verified 12/23/21 10:23) Unknown SEVERE RASH MOTTLING OF THE SKIN POST ADMINISTRATION OF IM [employer] Penicillins Allergy (Severe, Verified 12/23/21 10:23) Unknown SEVERE RASH MOTTLING OF THE SKIN POST ADMINISTRATION OF IM [employer] Home Medications: Home Medications Medication Instructions Recorded Confirmed Last Taken Type No Known Home Medications [No 12/21/21 12/21/21 Unknown History Reported Home Medications] Active Medications: Generic Name Dose Route Start Last Admin Trade Name Freq PRN Reason Stop Dose Admin Albuterol 2.5 mg 12/21/21 06:15 Albuterol 2.5 Mg/3 Ml Nebu IH Q3HRT PRN Shortness Of Breath Albuterol/Ipratropium 1 ampul 12/22/21 08:00 12/24/21 08:56 Ipratropium/Albuterol Sulfate 3 Ml Ampul.Neb IH 1 ampul BIDRT VLADIMIR Administration Diphenhydramine HCl 25 mg 12/21/21 06:24 Diphenhydramine 50 Mg/Ml Vial IV Q6H PRN Skin Irritation Docusate Sodium 100 mg 12/23/21 22:00 12/24/21 10:18 Docusate Sodium 100 Mg Cap PO 100 mg BID VLADIMIR Administration Famotidine 20 mg 12/21/21 10:00 12/24/21 10:18 Famotidine 20 Mg/2 Ml Inj IV 20 mg BID VLADIMIR Administration Gabapentin 100 mg 12/23/21 22:30 12/24/21 05:21 Gabapentin 100 Mg Cap PO 12/30/21 22:29 Not Given Q8HR VLADIMIR Gabapentin 100 mg 12/31/21 10:00 Gabapentin 100 Mg Cap PO 01/05/22 09:59 BID VLADIMIR Gabapentin 300 mg 12/31/21 18:00 Gabapentin 300 Mg Cap PO 01/05/22 17:59 QPM VLADIMIR Heparin Sodium (Porcine) 5,000 unit 12/21/21 10:00 12/24/21 10:18 Heparin 5,000 Unit/1 Ml Vial SUB-Q 5,000 unit Q12HR VLADIMIR Administration Hydralazine HCl 10 mg 12/22/21 18:31 12/22/21 18:50 Hydralazine 20 Mg/1 Ml Inj IV 10 mg Q3HR PRN Administration Hypertension Hydromorphone HCl 0.5 mg 12/21/21 06:15 12/23/21 03:13 Hydromorphone 1 Mg/1 Ml Inj IV 0.5 mg Q3H PRN Administration Pain , Severe (7-10) Sodium Chloride 1,000 mls @ 200 mls/hr 12/22/21 18:30 12/24/21 10:38 Nacl 0.9% 1000 Ml IV 200 mls/hr DIRECT VLADIMIR Administration Methylprednisolone Sodium Succinate 80 mg 12/22/21 18:59 12/24/21 05:24 Methylprednisolone Sod Succinate 125 Mg/2 Ml Inj IV 80 mg Q8HR VLADIMIR Administration Morphine Sulfate 2 mg 12/21/21 06:15 12/24/21 10:33 Morphine 2 Mg/1 Ml Inj IV 2 mg Q4H PRN Administration Pain, Moderate (4-6) Ondansetron HCl 4 mg 12/21/21 06:15 Ondansetron 4 Mg/2 Ml Inj IV Q8H PRN Nausea And Vomiting Sodium Chloride 10 ml 12/21/21 10:00 12/24/21 10:23 Sodium Chloride 0.9% 10 Ml Flush Syringe IV 10 ml BID VLADIMIR Administration Sodium Chloride 10 ml 12/21/21 06:15 Sodium Chloride 0.9% 10 Ml Flush Syringe IV PRN PRN LINE FLUSH Valsartan 160 mg 12/22/21 22:00 12/24/21 10:22 Valsartan 160mg Tab PO 160 mg DAILY VLADIMIR Administration
--- NOTE | 2021-12-24 13:27 | Progress Note ---
Assessment and Plan Assessment and plan: This is a transgendered female admitted with acute liver failure, rhabdomyolysis, s/p 4 compartment fasciotomy to left lower extremity Neuro: Neuropathy -Avoid delirium -Reorientation as needed -Maintain sleep-wake cycle -As needed analgesia -Neurology consulted, appreciate recommendations -Gabapentin Cardiac: ST, undiagnosed HTN -Blood pressure monitoring per protocol -Valsartan -PRN hydralazine Respiratory: NAD -Pulmanory hygiene -Supplemental oxygen as needed -SPO2 monitoring GI: Acute liver failure -GI consulted, appreciate recommendations -Per GI: Suspect due to rhabdomyolysis given elevated creatinine kinase levels -If ALT continues to rise recommend MRCP -Abdominal ultrasound shows mild diffuse biliary dilation, obstruction to lesion of the distal common bile duct cannot be excluded consider MRCP, no evidence of gallstones within the gallbladder -24 hours -250 mL -PPI -Regular diet -BR: colace -Trend LFTs : Rhabdomyolysis -Nephrology consulted, appreciate recommendations -Strict intake and output -Renally dose medications -Avoid nephrotoxic medications -MIVF -Sodium bicarb -Trend BMP, CK ID: NAD -s/p abx therapy with levaquin (12/21-12/23) -f/u blood culture -Monitor WBC and temperature curve Endo: NAD -Avoid hypoglycemia -SSI -Accu-Cheks q. xxx -Long-acting insulin, titrate as needed Heme: NAD -Trend CBC -Transfuse hemoglobin less than 7 -Monitor for signs of bleeding -Heparin subq MS: Compartment syndrome to LLE -Vascular surgery consulted, appreciate recommendations -s/p self admin of IM abx to midthigh -c/o pain, decreased sensation, pulses were dopplarable, paralysis, mottled skin -s/p 4 compartment tracheotomy on 12/21 with vascular surgery -Bilateral lower extremity Doppler ultrasound showed no DVT -Left lower extremity CT with contrast showed appearance of posterior soft tissue complex cellulitis with small subcutaneous lymph nodes, no drainable fluid collections present, contusion could have similar appearance -Bilateral lower extremity arterial duplex showed no significant lower extremity peripheral artery disease -Normal ABIs History Interval history: This is a 36 year old transgendered female undergoing gender transformation with silicone injection to buttocks ([place] 2016) and breast implants, heavy drinker on the weekends (bottle of vodka) who presented to [facility] on 12/21 because of adverse drug reaction after reportedly self administration of rocephin and PCN for sore throat. Patient reportedly collapsed while checking in to the emergency department, has complains of severe 10 out of 10 pain in left thigh and has noticeable mottling of skin in thigh and left lower abdomen. Patient underwent a CT of the left leg which showed possible cellulitis with no drainable fluid collection and was started on empiric antibiotics. Patient admitted to the hospital service with consult to surgery with left leg cellulitis and possible allergic reaction. Hospital course to date: 12/21: Venous ultrasound shows no DVT, Vascular surgery consulted who performed a fasciotomy and plan to transfer patient to [facility] post intervention. Neurology co nsulted 12/22: Transfer to ICU, GI and neurology consulted. 12/23: Patient will be transferred back to the floor from ICU. Her liver enzymes and creatinine are trending down. Will be started on gabapentin per neurology recommendations and antibiotics discontinued. 12/24: Continue supportive care. CPK slowly improving. Vascular plans for closure of fasciotomy early next week. PT OT evaluation and treatment closure done. Continue wound management. No evidence of withdrawal noted at this time. Continue to monitor LFTs which are also slightly improving. Plan discussed in detail with the patient who verbalized understanding History Interval history: Patient seen and examined this morning resting comfortably. No new complaints at this time. Dressing still in place left lower extremity awaiting closure which could happen next week. Hospitalist Physical - Physical exam Narrative exam: General appearance: Present: no acute distress - EENT Eyes: Present: PERRL, EOM intact ENT: hearing intact, clear oral mucosa, dentition normal - Neck Neck: Present: normal ROM - Respiratory Respiratory effort: normal Respiratory: bilateral: CTA - Cardiovascular Rhythm: regular Heart Sounds: Present: S1 & S2. Absent: systolic murmur, diastolic murmur - Extremities Extremity abnormal: edema, cyanosis, pulses diminished, tenderness Peripheral Pulses: abnormal - Peripheral pulses dorsalis pedis Pulse Strength: 2+ posterial tibial Pulse Strength: 2+ - Abdominal General gastrointestinal: soft, non-tender, non-distended, normal bowel sounds - Integumentary Integumentary: Present: warm, dry, evidence of surgically implanted breast and gluteal region noted. Left lower extremity with dressing significant edema remains in place open wound. No padma necrosis noted - Psychiatric Psychiatric: appropriate mood/affect, cooperative - Neurologic Neurologic: CNII-XII intact, no focal deficits, moves all extremities - Allied Health Allied health notes reviewed: nursing, social work - Constitutional Vitals: Temp Pulse Resp BP Pulse Ox 97.3 F L 94 H 18 140/87 98 12/24/21 04:44 12/24/21 08:56 12/24/21 08:56 12/24/21 10:22 12/24/21 12:40 General appearance: Present: no acute distress Results - Labs CBC & Chem 7: 12/24/21 05:17 12/24/21 05:17 Labs: Laboratory Last Values WBC 16.3 K/mm3 (4.5-11.0) H 12/24/21 05:17 RBC 3.82 M/mm3 (3.65-5.03) 12/24/21 05:17 Hgb 12.6 gm/dl (11.8-15.2) 12/24/21 05:17 Hct 37.5 % (35.5-45.6) 12/24/21 05:17 MCV 98 fl (84-94) H 12/24/21 05:17 MCH 33 pg (28-32) H 12/24/21 05:17 MCHC 34 % (32-34) 12/24/21 05:17 RDW 12.8 % (13.2-15.2) L 12/24/21 05:17 Plt Count 186 K/mm3 (140-440) 12/24/21 05:17 Lymph % (Auto) 7.8 % (13.4-35.0) L 12/23/21 04:49 [place] % (Auto) 10.6 % (0.0-7.3) H 12/23/21 04:49 Eos % (Auto) 0.0 % (0.0-4.3) 12/23/21 04:49 Baso % (Auto) 0.0 % (0.0-1.8) 12/23/21 04:49 Lymph # (Auto) 1.1 K/mm3 (1.2-5.4) L 12/23/21 04:49 [place] # (Auto) 1.5 K/mm3 (0.0-0.8) H 12/23/21 04:49 Eos # (Auto) 0.0 K/mm3 (0.0-0.4) 12/23/21 04:49 Baso # (Auto) 0.0 K/mm3 (0.0-0.1) 12/23/21 04:49 Add Manual Diff Complete 12/20/21 23:35 Total Counted 100 12/20/21 23:35 Seg Neutrophils % 81.6 % (40.0-70.0) H 12/23/21 04:49 Seg Neuts % (Manual) 52.0 % (40.0-70.0) 12/20/21 23:35 Band Neutrophils % 0 % 12/20/21 23:35 Lymphocytes % (Manual) 41.0 % (13.4-35.0) H 12/20/21 23:35 Reactive Lymphs % (Man) 0 % 12/20/21 23:35 Monocytes % (Manual) 7.0 % (0.0-7.3) 12/20/21 23:35 Eosinophils % (Manual) 0 % (0.0-4.3) 12/20/21 23:35 Basophils % (Manual) 0 % (0.0-1.8) 12/20/21 23:35 Metamyelocytes % 0 % 12/20/21 23:35 Myelocytes % 0 % 12/20/21 23:35 Promyelocytes % 0 % 12/20/21 23:35 Blast Cells % 0 % 12/20/21 23:35 Nucleated RBC % Not Reportable 12/20/21 23:35 Seg Neutrophils # 11.6 K/mm3 (1.8-7.7) H 12/23/21 04:49 Seg Neutrophils # Man 7.3 K/mm3 (1.8-7.7) 12/20/21 23:35 Band Neutrophils # 0.0 K/mm3 12/20/21 23:35 Lymphocytes # (Manual) 5.7 K/mm3 (1.2-5.4) H 12/20/21 23:35 Abs React Lymphs (Man) 0.0 K/mm3 12/20/21 23:35 Monocytes # (Manual) 1.0 K/mm3 (0.0-0.8) H 12/20/21 23:35 Eosinophils # (Manual) 0.0 K/mm3 (0.0-0.4) 12/20/21 23:35 Basophils # (Manual) 0.0 K/mm3 (0.0-0.1) 12/20/21 23:35 Metamyelocytes # 0.0 K/mm3 12/20/21 23:35 Myelocytes # 0.0 K/mm3 12/20/21 23:35 Promyelocytes # 0.0 K/mm3 12/20/21 23:35 Blast Cells # 0.0 K/mm3 12/20/21 23:35 WBC Morphology Not Reportable 12/20/21 23:35 Hypersegmented Neuts Not Reportable 12/20/21 23:35 Hyposegmented Neuts Not Reportable 12/20/21 23:35 Hypogranular Neuts Not Reportable 12/20/21 23:35 Smudge Cells Not Reportable 12/20/21 23:35 Toxic Granulation Not Reportable 12/20/21 23:35 Toxic Vacuolation Not Reportable 12/20/21 23:35 Dohle Bodies Not Reportable 12/20/21 23:35 Pelger-Huet Anomaly Not Reportable 12/20/21 23:35 [place] Rods Not Reportable 12/20/21 23:35 Platelet Estimate Consistent w auto 12/20/21 23:35 Clumped Platelets Not Reportable 12/20/21 23:35 Plt Clumps, EDTA Not Reportable 12/20/21 23:35 Large Platelets Not Reportable 12/20/21 23:35 Giant Platelets Not Reportable 12/20/21 23:35 Platelet Satelliting Not Reportable 12/20/21 23:35 Plt Morphology Comment Not Reportable 12/20/21 23:35 RBC Morphology Normal 12/20/21 23:35 Dimorphic RBCs Not Reportable 12/20/21 23:35 Polychromasia Not Reportable 12/20/21 23:35 Hypochromasia Not Reportable 12/20/21 23:35 Poikilocytosis Not Reportable 12/20/21 23:35 Anisocytosis Not Reportable 12/20/21 23:35 Microcytosis Not Reportable 12/20/21 23:35 Macrocytosis Not Reportable 12/20/21 23:35 Spherocytes Not Reportable 12/20/21 23:35 Pappenheimer Bodies Not Reportable 12/20/21 23:35 Sickle Cells Not Reportable 12/20/21 23:35 Target Cells Not Reportable 12/20/21 23:35 Tear Drop Cells Not Reportable 12/20/21 23:35 Ovalocytes Not Reportable 12/20/21 23:35 Helmet Cells Not Reportable 12/20/21 23:35 [place] Bodies Not Reportable 12/20/21 23:35 [place] Rings Not Reportable 12/20/21 23:35 [place] Cells Not Reportable 12/20/21 23:35 Bite Cells Not Reportable 12/20/21 23:35 Crenated Cell Not Reportable 12/20/21 23:35 Elliptocytes Not Reportable 12/20/21 23:35 Acanthocytes (Spur) Not Reportable 12/20/21 23:35 Rouleaux Not Reportable 12/20/21 23:35 Hemoglobin C Crystals Not Reportable 12/20/21 23:35 Schistocytes Not Reportable 12/20/21 23:35 Malaria parasites Not Reportable 12/20/21 23:35 [place] Bodies Not Reportable 12/20/21 23:35 Hem Pathologist Commnt No 12/20/21 23:35 PT 13.4 Sec. (12.2-14.9) 12/21/21 13:30 INR 0.92 (0.87-1.13) 12/21/21 13:30 APTT 25.8 Sec. (24.2-36.6) 12/21/21 13:30 Sodium 135 mmol/L (137-145) L 12/24/21 05:17 Potassium 4.4 mmol/L (3.6-5.0) 12/24/21 05:17 Chloride 99.3 mmol/L (98-107) 12/24/21 05:17 Carbon Dioxide 28 mmol/L (22-30) 12/24/21 05:17 Anion Gap 12 mmol/L 12/24/21 05:17 BUN 12 mg/dL (9-20) 12/24/21 05:17 Creatinine 0.5 mg/dL (0.8-1.3) L 12/24/21 05:17 Estimated GFR > 60 ml/min 12/24/21 05:17 BUN/Creatinine Ratio 24 % 12/24/21 05:17 Glucose 131 mg/dL (75-100) H 12/24/21 05:17 Lactic Acid 1.40 mmol/L (0.7-2.0) 12/21/21 13:30 Calcium 8.3 mg/dL (8.4-10.2) L 12/24/21 05:17 Phosphorus 2.80 mg/dL (2.5-4.5) 12/24/21 05:17 Magnesium 2.20 mg/dL (1.7-2.3) 12/24/21 05:17 Total Bilirubin 0.30 mg/dL (0.1-1.2) 12/24/21 05:17 Direct Bilirubin < 0.2 mg/dL (0-0.2) 12/21/21 22:47 AST 701 units/L (5-40) H 12/24/21 05:17 ALT 416 units/L (7-56) H 12/24/21 05:17 Alkaline Phosphatase 55 units/L (35-129) 12/24/21 05:17 Ammonia 37.0 umol/L (25-60) 12/23/21 04:49 Total Creatine Kinase 30796 units/L (55-170) H 12/24/21 05:17 Total Protein 5.1 g/dL (6.3-8.2) L 12/24/21 05:17 Albumin 3.2 g/dL (3.9-5) L 12/24/21 05:17 Albumin/Globulin Ratio 1.7 % 12/24/21 05:17 Amylase 25 units/L (27-131) L 12/23/21 04:49 Lipase 10 units/L (13-60) L 12/23/21 04:49 Coronavirus (PCR) Negative (Negative) 12/22/21 11:40 Hep Bs Antigen Non-reactive (Negative) 12/21/21 13:30 Hep B Core IgM Ab Non-reactive (NonReactive) 12/21/21 13:30 Hepatitis C Antibody Non-reactive (NonReactive) 12/21/21 13:30 HIV 1&2 Antibody Rapid Non react (Non React) 12/22/21 16:42 HIV P24 Antigen Non react (Non React) 12/22/21 16:42 Microbiology: Microbiology 12/21/21 22:47 Peripheral/Venous Blood Culture - Preliminary NO GROWTH AFTER 48 HOURS 12/21/21 22:47 Peripheral/Venous Blood Culture - Preliminary NO GROWTH AFTER 48 HOURS 12/22/21 17:51 Urine,Clean Catch Urine Culture - Preliminary NO GROWTH AFTER 24 HOURS Kaur/IV: Voiding Method Urinal Active Medications - Current Medications Current Medications: Generic Name Dose Route Start Last Admin Trade Name Freq PRN Reason Stop Dose Admin Albuterol 2.5 mg 12/21/21 06:15 Albuterol 2.5 Mg/3 Ml Nebu IH Q3HRT PRN Shortness Of Breath Albuterol/Ipratropium 1 ampul 12/22/21 08:00 12/24/21 08:56 Ipratropium/Albuterol Sulfate 3 Ml Ampul.Neb IH 1 ampul BIDRT VLADIMIR Administration Diphenhydramine HCl 25 mg 12/21/21 06:24 Diphenhydramine 50 Mg/Ml Vial IV Q6H PRN Skin Irritation Docusate Sodium 100 mg 12/23/21 22:00 12/24/21 10:18 Docusate Sodium 100 Mg Cap PO 100 mg BID VLADIMIR Administration Famotidine 20 mg 12/21/21 10:00 12/24/21 10:18 Famotidine 20 Mg/2 Ml Inj IV 20 mg BID VLADIMIR Administration Gabapentin 100 mg 12/23/21 22:30 12/24/21 05:21 Gabapentin 100 Mg Cap PO 12/30/21 22:29 Not Given Q8HR VLADIMIR Gabapentin 100 mg 12/31/21 10:00 Gabapentin 100 Mg Cap PO 01/05/22 09:59 BID VLADIMIR Gabapentin 300 mg 12/31/21 18:00 Gabapentin 300 Mg Cap PO 01/05/22 17:59 QPM VLADIMIR Heparin Sodium (Porcine) 5,000 unit 12/21/21 10:00 12/24/21 10:18 Heparin 5,000 Unit/1 Ml Vial SUB-Q 5,000 unit Q12HR VLADIMIR Administration Hydralazine HCl 10 mg 12/22/21 18:31 12/22/21 18:50 Hydralazine 20 Mg/1 Ml Inj IV 10 mg Q3HR PRN Administration Hypertension Hydromorphone HCl 0.5 mg 12/21/21 06:15 12/23/21 03:13 Hydromorphone 1 Mg/1 Ml Inj IV 0.5 mg Q3H PRN Administration Pain , Severe (7-10) Sodium Chloride 1,000 mls @ 200 mls/hr 12/22/21 18:30 12/24/21 10:38 Nacl 0.9% 1000 Ml IV 200 mls/hr DIRECT VLADIMIR Administration Methylprednisolone Sodium Succinate 80 mg 12/22/21 18:59 12/24/21 05:24 Methylprednisolone Sod Succinate 125 Mg/2 Ml Inj IV 80 mg Q8HR VLADIMIR Administration Morphine Sulfate 2 mg 12/21/21 06:15 12/24/21 10:33 Morphine 2 Mg/1 Ml Inj IV 2 mg Q4H PRN Administration Pain, Moderate (4-6) Ondansetron HCl 4 mg 12/21/21 06:15 Ondansetron 4 Mg/2 Ml Inj IV Q8H PRN Nausea And Vomiting Sodium Chloride 10 ml 12/21/21 10:00 12/24/21 10:23 Sodium Chloride 0.9% 10 Ml Flush Syringe IV 10 ml BID VLADIMIR Administration Sodium Chloride 10 ml 12/21/21 06:15 Sodium Chloride 0.9% 10 Ml Flush Syringe IV PRN PRN LINE FLUSH Valsartan 160 mg 12/22/21 22:00 12/24/21 10:22 Valsartan 160mg Tab PO 160 mg DAILY VLADIMIR Administration
--- NOTE | 2021-12-24 14:44 | Gastroenterology Progress Note ---
Assessment and Plan acute liver injury - suspect from rhabdo +/- sepsis, stable/improving. cont to monitor. if worsening levels, then obtain mrcp. otherwise, conservative management from gi stand point will sign off, please call as needed or worsening liver enzymes. Subjective Date of service: 12/24/21 Principal diagnosis: abnormal liver enzymes Interval history: no new gi complaints/symptoms. Objective - Constitutional Vitals: Temp Pulse Resp BP Pulse Ox 97.3 F L 94 H 18 140/87 98 12/24/21 04:44 12/24/21 08:56 12/24/21 08:56 12/24/21 10:22 12/24/21 12:40 General appearance: no acute distress - Respiratory Respiratory effort: normal Respiratory: bilateral: CTA - Cardiovascular Rhythm: regular - Gastrointestinal General gastrointestinal: Present: soft, non-tender - Labs CBC & Chem 7: 12/24/21 05:17 12/24/21 05:17 Labs: Laboratory Results - last 24 hr 12/21/21 12/23/21 12/23/21 13:30 14:30 23:33 WBC RBC Hgb Hct MCV MCH MCHC RDW Plt Count Sodium Potassium Chloride Carbon Dioxide Anion Gap BUN Creatinine Estimated GFR BUN/Creatinine Ratio Glucose Calcium Phosphorus Magnesium Total Bilirubin AST ALT Alkaline Phosphatase Total Creatine Kinase 54721 H 42695 H Total Protein Albumin Albumin/Globulin Ratio Hep Bs Antigen Non-reactive Hep B Core IgM Ab Non-reactive Hepatitis C Antibody Non-reactive 12/24/21 12/24/21 05:17 05:17 WBC 16.3 H RBC 3.82 Hgb 12.6 Hct 37.5 MCV 98 H MCH 33 H MCHC 34 RDW 12.8 L Plt Count 186 Sodium 135 L Potassium 4.4 Chloride 99.3 Carbon Dioxide 28 Anion Gap 12 BUN 12 Creatinine 0.5 L Estimated GFR > 60 BUN/Creatinine Ratio 24 Glucose 131 H Calcium 8.3 L Phosphorus 2.80 Magnesium 2.20 Total Bilirubin 0.30 AST 701 H ALT 416 H Alkaline Phosphatase 55 Total Creatine Kinase 94633 H Total Protein 5.1 L Albumin 3.2 L Albumin/Globulin Ratio 1.7 Hep Bs Antigen Hep B Core IgM Ab Hepatitis C Antibody
[2021-12-25] MEDS: SODIUM CHLORIDE 0.9% 1000 ML 1,000 ML IV SCH ×3 (04:39→15:30)
[2021-12-25] MEDS: methylPREDNISolone Sod Succinate 125 MG/2 ML INJ IV SCH ×3 (05:33→22:10)
[2021-12-25] MEDS: GABAPENTIN 100 MG CAP PO SCH ×3 (05:33→22:09)
[2021-12-25 05:38] LABS: Hematocrit 36.6 % (35.5-45.6); Hemoglobin 12.2 gm/dl (11.8-15.2); Mean Corpuscular HGB Conc 33 % (32-34); Mean Corpuscular Volume 98 fl (84-94); Platelet Count 205 K/mm3 (140-440); Red Blood Count 3.72 M/mm3 (3.65-5.03); Red Cell Distribution Width 12.6 % (13.2-15.2)
[2021-12-25 05:58] LABS: Alanine Aminotransferase 397 units/L (7-56); Albumin 3.2 g/dL (3.9-5); Blood Urea Nitrogen 13 mg/dL (9-20); Calcium 7.9 mg/dL (8.4-10.2); Hemolysis Index 3
[2021-12-25 06:06] LABS: BUN/Creatinine Ratio 26
[2021-12-25] MEDS: IPRATROPIUM/ALBUTEROL SULFATE 3 ML AMPUL.NEB IH SCH ×2 (07:50→21:11)
[2021-12-25] MEDS: HEPARIN 5,000 UNIT/1 ML VIAL SUB-Q SCH ×2 (09:35→22:09)
[2021-12-25] MEDS: FAMOTIDINE 20 MG/2 ML INJ IV SCH ×2 (09:35→22:09)
[2021-12-25] MEDS: VALSARTAN 160MG TAB PO SCH (09:35)
[2021-12-25] MEDS: DOCUSATE SODIUM 100 MG CAP PO SCH ×2 (09:35→22:09)
--- NOTE | 2021-12-25 11:23 | Progress Note ---
Assessment and Plan # Acute Rhabdomyolysis in setting of left leg compartment syndrome: - continue aggressive IVF (NS at 200ml/min reasonable), CK downtrending has been appropriately, no CK today - s/p fasciotomy per Dr. Swann/Lamin, seymour - supportive measures per primary - can hold lasix, use prn if respiratory status worsening/volume overload developing, but note appropriate urine output (3.3L) - can hold NaHCO3 as acid/base stable - follow renal function, electrolytes- currently stable # Transaminitis: in setting of rhabdomyolysis, note GI input Subjective Date of service: 12/25/21 Principal diagnosis: abnormal liver enzymes Interval history: No renal related clinical changes noted. Resting in bed. Denies pain in foot Objective - Exam Narrative Exam: General appearance: well-developed, well-nourished EENT: ATNC Neck: Present: neck supple, trachea midline Respiratory: Clear to Ascultation Heart: regular, S1S2 Gastrointestinal: Present: normoactive bowel sounds Integumentary: no rash, warm and dry Neurologic: no focal deficit, no asterixis - Vital Signs Vital signs: Vital Signs - 12hr 12/25/21 12/25/21 05:05 07:50 Temperature 97.7 F Pulse Rate 72 Pulse Rate [ 77 Anterior Bilateral Throughout] Respiratory 18 Rate Respiratory 18 Rate [Anterior Bilateral Throughout] Blood Pressure 139/94 O2 Sat by Pulse 94 97 Oximetry - Lab 12/25/21 04:57 12/25/21 04:57 Most recent lab results Calcium 7.9 mg/dL (8.4-10.2) L 12/25/21 04:57 Phosphorus 2.80 mg/dL (2.5-4.5) 12/24/21 05:17 Magnesium 2.20 mg/dL (1.7-2.3) 12/24/21 05:17 Medications & Allergies - Medications Allergies/Adverse Reactions: Allergies ceftriaxone [From Rocephin] Allergy (Severe, Verified 12/23/21 10:23) Unknown SEVERE RASH MOTTLING OF THE SKIN [employer] Penicillins Allergy (Severe, Verified 12/23/21 10:23) Unknown SEVERE RASH MOTTLING OF THE SKIN [employer] Home Medications: Home Medications Medication Instructions Recorded Confirmed Last Taken Type No Known Home Medications [No 12/21/21 12/21/21 Unknown History Reported Home Medications] Active Medications: Generic Name Dose Route Start Last Admin Trade Name Freq PRN Reason Stop Dose Admin Albuterol 2.5 mg 12/21/21 06:15 Albuterol 2.5 Mg/3 Ml Nebu IH Q3HRT PRN Shortness Of Breath Albuterol/Ipratropium 1 ampul 12/22/21 08:00 12/25/21 07:50 Ipratropium/Albuterol Sulfate 3 Ml Ampul.Neb IH 1 ampul BIDRT VLADIMIR Administration Diphenhydramine HCl 25 mg 12/21/21 06:24 Diphenhydramine 50 Mg/Ml Vial IV Q6H PRN Skin Irritation Docusate Sodium 100 mg 12/23/21 22:00 12/25/21 09:35 Docusate Sodium 100 Mg Cap PO 100 mg BID VLADIMIR Administration Famotidine 20 mg 12/21/21 10:00 12/25/21 09:35 Famotidine 20 Mg/2 Ml Inj IV 20 mg BID VLADIMIR Administration Gabapentin 100 mg 12/23/21 22:30 12/25/21 05:33 Gabapentin 100 Mg Cap PO 12/30/21 22:29 100 mg Q8HR VLADIMIR Administration Gabapentin 100 mg 12/31/21 10:00 Gabapentin 100 Mg Cap PO 01/05/22 09:59 BID VLADIMIR Gabapentin 300 mg 12/31/21 18:00 Gabapentin 300 Mg Cap PO 01/05/22 17:59 QPM VLADIMIR Heparin Sodium (Porcine) 5,000 unit 12/21/21 10:00 12/25/21 09:35 Heparin 5,000 Unit/1 Ml Vial SUB-Q 5,000 unit Q12HR VLADIMIR Administration Hydralazine HCl 10 mg 12/22/21 18:31 12/22/21 18:50 Hydralazine 20 Mg/1 Ml Inj IV 10 mg Q3HR PRN Administration Hypertension Hydromorphone HCl 0.5 mg 12/21/21 06:15 12/23/21 03:13 Hydromorphone 1 Mg/1 Ml Inj IV 0.5 mg Q3H PRN Administration Pain , Severe (7-10) Sodium Chloride 1,000 mls @ 200 mls/hr 12/22/21 18:30 12/25/21 09:36 Nacl 0.9% 1000 Ml IV 200 mls/hr DIRECT VLADIMIR Administration Methylprednisolone Sodium Succinate 80 mg 12/22/21 18:59 12/25/21 05:33 Methylprednisolone Sod Succinate 125 Mg/2 Ml Inj IV 80 mg Q8HR VLADIMIR Administration Morphine Sulfate 2 mg 12/21/21 06:15 12/24/21 10:33 Morphine 2 Mg/1 Ml Inj IV 2 mg Q4H PRN Administration Pain, Moderate (4-6) Ondansetron HCl 4 mg 12/21/21 06:15 Ondansetron 4 Mg/2 Ml Inj IV Q8H PRN Nausea And Vomiting Sodium Chloride 10 ml 12/21/21 10:00 12/25/21 09:36 Sodium Chloride 0.9% 10 Ml Flush Syringe IV 10 ml BID VLADIMIR Administration Sodium Chloride 10 ml 12/21/21 06:15 Sodium Chloride 0.9% 10 Ml Flush Syringe IV PRN PRN LINE FLUSH Valsartan 160 mg 12/22/21 22:00 12/25/21 09:35 Valsartan 160mg Tab PO 160 mg DAILY VLADIMIR Administration
--- NOTE | 2021-12-25 11:47 | Progress Note ---
Assessment and Plan Assessment and plan: This is a transgendered female admitted with acute liver failure, rhabdomyolysis, s/p 4 compartment fasciotomy to left lower extremity Neuro: Neuropathy -Avoid delirium -Reorientation as needed -Maintain sleep-wake cycle -As needed analgesia -Neurology consulted, appreciate recommendations -Gabapentin Cardiac: ST, undiagnosed HTN -Blood pressure monitoring per protocol -Valsartan -PRN hydralazine Respiratory: NAD -Pulmanory hygiene -Supplemental oxygen as needed -SPO2 monitoring GI: Acute liver failure -GI consulted, appreciate recommendations -Per GI: Suspect due to rhabdomyolysis given elevated creatinine kinase levels -If ALT continues to rise recommend MRCP -Abdominal ultrasound shows mild diffuse biliary dilation, obstruction to lesion of the distal common bile duct cannot be excluded consider MRCP, no evidence of gallstones within the gallbladder -24 hours -250 mL -PPI -Regular diet -BR: colace -Trend LFTs : Rhabdomyolysis, acute kidney injury with vasomotor nephropathy now resolved -Nephrology consulted, appreciate recommendations -Strict intake and output -Renally dose medications -Avoid nephrotoxic medications -MIVF -Sodium bicarb -Trend BMP, CK ID: NAD -s/p abx therapy with levaquin (12/21-12/23) -f/u blood culture -Monitor WBC and temperature curve Endo: NAD -Avoid hypoglycemia -SSI -Accu-Cheks q. xxx -Long-acting insulin, titrate as needed Heme: NAD -Trend CBC -Transfuse hemoglobin less than 7 -Monitor for signs of bleeding -Heparin subq MS: Compartment syndrome to LLE -Vascular surgery consulted, appreciate recommendations -s/p self admin of IM abx to midthigh -c/o pain, decreased sensation, pulses were dopplarable, paralysis, mottled skin -s/p 4 compartment tracheotomy on 12/21 with vascular surgery -Bilateral lower extremity Doppler ultrasound showed no DVT -Left lower extremity CT with contrast showed appearance of posterior soft tissue complex cellulitis with small subcutaneous lymph nodes, no drainable fluid collections present, contusion could have similar appearance -Bilateral lower extremity arterial duplex showed no significant lower extremity peripheral artery disease -Normal ABIs History Interval history: This is a 36 year old transgendered female undergoing gender transformation with silicone injection to buttocks ([place] 2016) and breast implants, heavy drinker on the weekends (bottle of vodka) who presented to [facility] on 12/21 because of adverse drug reaction after reportedly self administration of rocephin and PCN for sore throat. Patient reportedly collapsed while checking in to the emergency department, has complains of severe 10 out of 10 pain in left thigh and has noticeable mottling of skin in thigh and left lower abdomen. Patient underwent a CT of the left leg which showed possible cellulitis with no drainable fluid collection and was started on empiric antibiotics. Patient admitted to the hospital service with consult to surgery with left leg cellulitis and possible allergic reaction. Hospital course to date: 12/21: Venous ultrasound shows no DVT, Vascular surgery consulted who performed a fasciotomy and plan to transfer patient to [facility] post intervention. Neurology consulted 12/22: Transfer to ICU, GI and neurology consulted. 12/23: Patient will be transferred back to the floor from ICU. Her liver enzymes and creatinine are trending down. Will be started on gabapentin per neurology recommendations and antibiotics discontinued. 12/24: Continue supportive care. CPK slowly improving. Vascular plans for closure of fasciotomy early next week. PT OT evaluation and treatment closure done. Continue wound management. No evidence of withdrawal noted at this time. Continue to monitor LFTs which are also slightly improving. Plan discussed in detail with the patient who verbalized understanding 12/25: Patient seen and examined clinically stable continues to show some improvement. Closure of fasciotomy planned for tomorrow. Renal function is improving. CK ordered and pending History Interval history: Patient seen and examined this morning resting comfortably. No new complaints at this time. Dressing still in place left lower extremity awaiting closure which could happen next week. Hospitalist Physical - Physical exam Narrative exam: General appearance: Present: no acute distress - EENT Eyes: Present: PERRL, EOM intact ENT: hearing intact, clear oral mucosa, dentition normal - Neck Neck: Present: normal ROM - Respiratory Respiratory effort: normal Respiratory: bilateral: CTA - Cardiovascular Rhythm: regular Heart Sounds: Present: S1 & S2. Absent: systolic murmur, diastolic murmur - Extremities Extremity abnormal: edema, cyanosis, pulses diminished, tenderness Peripheral Pulses: abnormal - Peripheral pulses dorsalis pedis Pulse Strength: 2+ posterial tibial Pulse Strength: 2+ - Abdominal General gastrointestinal: soft, non-tender, non-distended, normal bowel sounds - Integumentary Integumentary: Present: warm, dry, evidence of surgically implanted breast and gluteal region noted. Left lower extremity with dressing significant edema remains in place open wound. No padma necrosis noted - Psychiatric Psychiatric: appropriate mood/affect, cooperative - Neurologic Neurologic: CNII-XII intact, no focal deficits, moves all extremities - Allied Health Allied health notes reviewed: nursing, social work - Constitutional Vitals: Temp Pulse Resp BP Pulse Ox 97.7 F 77 18 139/94 98 12/25/21 05:05 12/25/21 07:50 12/25/21 07:50 12/25/21 05:05 12/25/21 11:42 General appearance: Present: no acute distress Results - Labs CBC & Chem 7: 12/25/21 04:57 12/25/21 04:57 Labs: Laboratory Last Values WBC 17.2 K/mm3 (4.5-11.0) H 12/25/21 04:57 RBC 3.72 M/mm3 (3.65-5.03) 12/25/21 04:57 Hgb 12.2 gm/dl (11.8-15.2) 12/25/21 04:57 Hct 36.6 % (35.5-45.6) 12/25/21 04:57 MCV 98 fl (84-94) H 12/25/21 04:57 MCH 33 pg (28-32) H 12/25/21 04:57 MCHC 33 % (32-34) 12/25/21 04:57 RDW 12.6 % (13.2-15.2) L 12/25/21 04:57 Plt Count 205 K/mm3 (140-440) 12/25/21 04:57 Lymph % (Auto) 7.8 % (13.4-35.0) L 12/23/21 04:49 [place] % (Auto) 10.6 % (0.0-7.3) H 12/23/21 04:49 Eos % (Auto) 0.0 % (0.0-4.3) 12/23/21 04:49 Baso % (Auto) 0.0 % (0.0-1.8) 12/23/21 04:49 Lymph # (Auto) 1.1 K/mm3 (1.2-5.4) L 12/23/21 04:49 [place] # (Auto) 1.5 K/mm3 (0.0-0.8) H 12/23/21 04:49 Eos # (Auto) 0.0 K/mm3 (0.0-0.4) 12/23/21 04:49 Baso # (Auto) 0.0 K/mm3 (0.0-0.1) 12/23/21 04:49 Add Manual Diff Complete 12/20/21 23:35 Total Counted 100 12/20/21 23:35 Seg Neutrophils % 81.6 % (40.0-70.0) H 12/23/21 04:49 Seg Neuts % (Manual) 52.0 % (40.0-70.0) 12/20/21 23:35 Band Neutrophils % 0 % 12/20/21 23:35 Lymphocytes % (Manual) 41.0 % (13.4-35.0) H 12/20/21 23:35 Reactive Lymphs % (Man) 0 % 12/20/21 23:35 Monocytes % (Manual) 7.0 % (0.0-7.3) 12/20/21 23:35 Eosinophils % (Manual) 0 % (0.0-4.3) 12/20/21 23:35 Basophils % (Manual) 0 % (0.0-1.8) 12/20/21 23:35 Metamyelocytes % 0 % 12/20/21 23:35 Myelocytes % 0 % 12/20/21 23:35 Promyelocytes % 0 % 12/20/21 23:35 Blast Cells % 0 % 12/20/21 23:35 Nucleated RBC % Not Reportable 12/20/21 23:35 Seg Neutrophils # 11.6 K/mm3 (1.8-7.7) H 12/23/21 04:49 Seg Neutrophils # Man 7.3 K/mm3 (1.8-7.7) 12/20/21 23:35 Band Neutrophils # 0.0 K/mm3 12/20/21 23:35 Lymphocytes # (Manual) 5.7 K/mm3 (1.2-5.4) H 12/20/21 23:35 Abs React Lymphs (Man) 0.0 K/mm3 12/20/21 23:35 Monocytes # (Manual) 1.0 K/mm3 (0.0-0.8) H 12/20/21 23:35 Eosinophils # (Manual) 0.0 K/mm3 (0.0-0.4) 12/20/21 23:35 Basophils # (Manual) 0.0 K/mm3 (0.0-0.1) 12/20/21 23:35 Metamyelocytes # 0.0 K/mm3 12/20/21 23:35 Myelocytes # 0.0 K/mm3 12/20/21 23:35 Promyelocytes # 0.0 K/mm3 12/20/21 23:35 Blast Cells # 0.0 K/mm3 12/20/21 23:35 WBC Morphology Not Reportable 12/20/21 23:35 Hypersegmented Neuts Not Reportable 12/20/21 23:35 Hyposegmented Neuts Not Reportable 12/20/21 23:35 Hypogranular Neuts Not Reportable 12/20/21 23:35 Smudge Cells Not Reportable 12/20/21 23:35 Toxic Granulation Not Reportable 12/20/21 23:35 Toxic Vacuolation Not Reportable 12/20/21 23:35 Dohle Bodies Not Reportable 12/20/21 23:35 Pelger-Huet Anomaly Not Reportable 12/20/21 23:35 [place] Rods Not Reportable 12/20/21 23:35 Platelet Estimate Consistent w auto 12/20/21 23:35 Clumped Platelets Not Reportable 12/20/21 23:35 Plt Clumps, EDTA Not Reportable 12/20/21 23:35 Large Platelets Not Reportable 12/20/21 23:35 Giant Platelets Not Reportable 12/20/21 23:35 Platelet Satelliting Not Reportable 12/20/21 23:35 Plt Morphology Comment Not Reportable 12/20/21 23:35 RBC Morphology Normal 12/20/21 23:35 Dimorphic RBCs Not Reportable 12/20/21 23:35 Polychromasia Not Reportable 12/20/21 23:35 Hypochromasia Not Reportable 12/20/21 23:35 Poikilocytosis Not Reportable 12/20/21 23:35 Anisocytosis Not Reportable 12/20/21 23:35 Microcytosis Not Reportable 12/20/21 23:35 Macrocytosis Not Reportable 12/20/21 23:35 Spherocytes Not Reportable 12/20/21 23:35 Pappenheimer Bodies Not Reportable 12/20/21 23:35 Sickle Cells Not Reportable 12/20/21 23:35 Target Cells Not Reportable 12/20/21 23:35 Tear Drop Cells Not Reportable 12/20/21 23:35 Ovalocytes Not Reportable 12/20/21 23:35 Helmet Cells Not Reportable 12/20/21 23:35 [place]ons-[place] Bodies Not Reportable 12/20/21 23:35 [place] Rings Not Reportable 12/20/21 23:35 Sebastien Cells Not Reportable 12/20/21 23:35 Bite Cells Not Reportable 12/20/21 23:35 Crenated Cell Not Reportable 12/20/21 23:35 Elliptocytes Not Reportable 12/20/21 23:35 Acanthocytes (Spur) Not Reportable 12/20/21 23:35 Rouleaux Not Reportable 12/20/21 23:35 Hemoglobin C Crystals Not Reportable 12/20/21 23:35 Schistocytes Not Reportable 12/20/21 23:35 Malaria parasites Not Reportable 12/20/21 23:35 [place] Bodies Not Reportable 12/20/21 23:35 Hem Pathologist Commnt No 12/20/21 23:35 PT 13.4 Sec. (12.2-14.9) 12/21/21 13:30 INR 0.92 (0.87-1.13) 12/21/21 13:30 APTT 25.8 Sec. (24.2-36.6) 12/21/21 13:30 Sodium 138 mmol/L (137-145) 12/25/21 04:57 Potassium 4.1 mmol/L (3.6-5.0) 12/25/21 04:57 Chloride 101.2 mmol/L (98-107) 12/25/21 04:57 Carbon Dioxide 26 mmol/L (22-30) 12/25/21 04:57 Anion Gap 15 mmol/L 12/25/21 04:57 BUN 13 mg/dL (9-20) 12/25/21 04:57 Creatinine 0.5 mg/dL (0.8-1.3) L 12/25/21 04:57 Estimated GFR > 60 ml/min 12/25/21 04:57 BUN/Creatinine Ratio 26 % 12/25/21 04:57 Glucose 133 mg/dL (75-100) H 12/25/21 04:57 Lactic Acid 1.40 mmol/L (0.7-2.0) 12/21/21 13:30 Calcium 7.9 mg/dL (8.4-10.2) L 12/25/21 04:57 Phosphorus 2.80 mg/dL (2.5-4.5) 12/24/21 05:17 Magnesium 2.20 mg/dL (1.7-2.3) 12/24/21 05:17 Total Bilirubin 0.30 mg/dL (0.1-1.2) 12/25/21 04:57 Direct Bilirubin < 0.2 mg/dL (0-0.2) 12/21/21 22:47 AST 501 units/L (5-40) H 12/25/21 04:57 ALT 397 units/L (7-56) H 12/25/21 04:57 Alkaline Phosphatase 63 units/L (35-129) 12/25/21 04:57 Ammonia 37.0 umol/L (25-60) 12/23/21 04:49 Total Creatine Kinase 98415 units/L (55-170) H 12/24/21 05:17 Total Protein 5.0 g/dL (6.3-8.2) L 12/25/21 04:57 Albumin 3.2 g/dL (3.9-5) L 12/25/21 04:57 Albumin/Globulin Ratio 1.8 % 12/25/21 04:57 Amylase 25 units/L (27-131) L 12/23/21 04:49 Lipase 10 units/L (13-60) L 12/23/21 04:49 Coronavirus (PCR) Negative (Negative) 12/22/21 11:40 Hep Bs Antigen Non-reactive (Negative) 12/21/21 13:30 Hep B Core IgM Ab Non-reactive (NonReactive) 12/21/21 13:30 Hepatitis C Antibody Non-reactive (NonReactive) 12/21/21 13:30 HIV 1&2 Antibody Rapid Non react (Non React) 12/22/21 16:42 HIV P24 Antigen Non react (Non React) 12/22/21 16:42 Microbiology: Microbiology 12/21/21 22:47 Peripheral/Venous Blood Culture - Preliminary NO GROWTH AFTER 72 HOURS 12/21/21 22:47 Peripheral/Venous Blood Culture - Preliminary NO GROWTH AFTER 72 HOURS 12/22/21 17:51 Urine,Clean Catch Urine Culture - Final NO GROWTH AFTER 48 HOURS Kaur/IV: Voiding Method Urinal Active Medications - Current Medications Current Medications: Generic Name Dose Route Start Last Admin Trade Name Freq PRN Reason Stop Dose Admin Albuterol 2.5 mg 12/21/21 06:15 Albuterol 2.5 Mg/3 Ml Nebu IH Q3HRT PRN Shortness Of Breath Albuterol/Ipratropium 1 ampul 12/22/21 08:00 12/25/21 07:50 Ipratropium/Albuterol Sulfate 3 Ml Ampul.Neb IH 1 ampul BIDRT VLADIMIR Administration Diphenhydramine HCl 25 mg 12/21/21 06:24 Diphenhydramine 50 Mg/Ml Vial IV Q6H PRN Skin Irritation Docusate Sodium 100 mg 12/23/21 22:00 12/25/21 09:35 Docusate Sodium 100 Mg Cap PO 100 mg BID VLADIMIR Administration Famotidine 20 mg 12/21/21 10:00 12/25/21 09:35 Famotidine 20 Mg/2 Ml Inj IV 20 mg BID VLADIMIR Administration Gabapentin 100 mg 12/23/21 22:30 12/25/21 05:33 Gabapentin 100 Mg Cap PO 12/30/21 22:29 100 mg Q8HR VLADIMIR Administration Gabapentin 100 mg 12/31/21 10:00 Gabapentin 100 Mg Cap PO 01/05/22 09:59 BID VLADIMIR Gabapentin 300 mg 12/31/21 18:00 Gabapentin 300 Mg Cap PO 01/05/22 17:59 QPM VLADIMIR Heparin Sodium (Porcine) 5,000 unit 12/21/21 10:00 12/25/21 09:35 Heparin 5,000 Unit/1 Ml Vial SUB-Q 5,000 unit Q12HR VLADIMIR Administration Hydralazine HCl 10 mg 12/22/21 18:31 12/22/21 18:50 Hydralazine 20 Mg/1 Ml Inj IV 10 mg Q3HR PRN Administration Hypertension Hydromorphone HCl 0.5 mg 12/21/21 06:15 12/23/21 03:13 Hydromorphone 1 Mg/1 Ml Inj IV 0.5 mg Q3H PRN Administration Pain , Severe (7-10) Sodium Chloride 1,000 mls @ 200 mls/hr 12/22/21 18:30 12/25/21 09:36 Nacl 0.9% 1000 Ml IV 200 mls/hr DIRECT VLADIMIR Administration Methylprednisolone Sodium Succinate 80 mg 12/22/21 18:59 12/25/21 05:33 Methylprednisolone Sod Succinate 125 Mg/2 Ml Inj IV 80 mg Q8HR VLADIMIR Administration Morphine Sulfate 2 mg 12/21/21 06:15 12/24/21 10:33 Morphine 2 Mg/1 Ml Inj IV 2 mg Q4H PRN Administration Pain, Moderate (4-6) Ondansetron HCl 4 mg 12/21/21 06:15 Ondansetron 4 Mg/2 Ml Inj IV Q8H PRN Nausea And Vomiting Sodium Chloride 10 ml 12/21/21 10:00 12/25/21 09:36 Sodium Chloride 0.9% 10 Ml Flush Syringe IV 10 ml BID VLADIMIR Administration Sodium Chloride 10 ml 12/21/21 06:15 Sodium Chloride 0.9% 10 Ml Flush Syringe IV PRN PRN LINE FLUSH Valsartan 160 mg 12/22/21 22:00 12/25/21 09:35 Valsartan 160mg Tab PO 160 mg DAILY VLADIMIR Administration
--- NOTE | 2021-12-25 12:40 | Progress Note ---
Assessment and Plan Left lower extremity compartment syndrome status post fasciotomies. Cause is still unclear and may represent some allergic reaction. Motor function is unchanged from original exam. Sensory function has improved with full sensation of the foot. We will see about placing wound vacs on the leg on Monday, Monday, or Monday based on OR availability and muscular swelling. Discussed with patient and friends at bedside that this may take 3 to 6 months to completely heal. They understand. Subjective Date of service: 12/25/21 Principal diagnosis: abnormal liver enzymes Interval history: Minimal discomfort of the left leg. Left foot has some areas of duskiness which are improving. Strongly palpable left dorsalis pedis and posterior tibial pulse. The patient has sensation of the foot. No motor function of the foot. This is unchanged from the original exam. Bandage over fasciotomies. Objective - Constitutional Vitals: Vital Signs - 12hr 12/25/21 12/25/21 12/25/21 05:05 07:50 10:58 Temperature 97.7 F 97.8 F Pulse Rate 72 80 Pulse Rate [ 77 Anterior Bilateral Throughout] Respiratory 18 20 Rate Respiratory 18 Rate [Anterior Bilateral Throughout] Blood Pressure 139/94 153/83 O2 Sat by Pulse 94 97 96 Oximetry 12/25/21 11:42 Temperature Pulse Rate Pulse Rate [ Anterior Bilateral Throughout] Respiratory Rate Respiratory Rate [Anterior Bilateral Throughout] Blood Pressure O2 Sat by Pulse 98 Oximetry General appearance: Present: no acute distress - EENT Eyes: EOM intact ENT: hearing intact - Respiratory Respiratory effort: normal Extremities: pulses intact, abnormal (see Subjective) - Gastrointestinal General gastrointestinal: Present: soft, non-tender - Psychiatric Psychiatric: appropriate mood/affect, cooperative - Labs CBC & Chem 7: 12/25/21 04:57 12/25/21 04:57 Labs: Abnormal lab results 12/25/21 12/25/21 12/25/21 Range/Units 04:57 04:57 11:36 WBC 17.2 H (4.5-11.0) K/mm3 MCV 98 H (84-94) fl MCH 33 H (28-32) pg RDW 12.6 L (13.2-15.2) % Creatinine 0.5 L (0.8-1.3) mg/dL Glucose 133 H (75-100) mg/dL Calcium 7.9 L (8.4-10.2) mg/dL AST 501 H (5-40) units/L ALT 397 H (7-56) units/L Total Creatine Kinase 79587 H (55-170) units/L Total Protein 5.0 L (6.3-8.2) g/dL Albumin 3.2 L (3.9-5) g/dL Medications & Allergies - Medications Allergies/Adverse Reactions: Allergies ceftriaxone [From Rocephin] Allergy (Severe, Verified 12/23/21 10:23) Unknown SEVERE RASH MOTTLING OF THE SKIN POST ADMINISTRATION OF IM [employer] DIRECTOR INDEPENDENT Penicillins Allergy (Severe, Verified 12/23/21 10:23) Unknown SEVERE RASH MOTTLING OF THE SKIN [employer] OF [employer] INDEPENDENT Home Medications: Home Medications Medication Instructions Recorded Confirmed Last Taken Type No Known Home Medications [No 12/21/21 12/21/21 Unknown History Reported Home Medications] Active Medications: Generic Name Dose Route Start Last Admin Trade Name Freq PRN Reason Stop Dose Admin Albuterol 2.5 mg 12/21/21 06:15 Albuterol 2.5 Mg/3 Ml Nebu IH Q3HRT PRN Shortness Of Breath Albuterol/Ipratropium 1 ampul 12/22/21 08:00 12/25/21 07:50 Ipratropium/Albuterol Sulfate 3 Ml Ampul.Neb IH 1 ampul BIDRT VLADIMIR Administration Diphenhydramine HCl 25 mg 12/21/21 06:24 Diphenhydramine 50 Mg/Ml Vial IV Q6H PRN Skin Irritation Docusate Sodium 100 mg 12/23/21 22:00 12/25/21 09:35 Docusate Sodium 100 Mg Cap PO 100 mg BID VLADIMIR Administration Famotidine 20 mg 12/21/21 10:00 12/25/21 09:35 Famotidine 20 Mg/2 Ml Inj IV 20 mg BID VLADIMIR Administration Gabapentin 100 mg 12/23/21 22:30 12/25/21 05:33 Gabapentin 100 Mg Cap PO 12/30/21 22:29 100 mg Q8HR VLADIMIR Administration Gabapentin 100 mg 12/31/21 10:00 Gabapentin 100 Mg Cap PO 01/05/22 09:59 BID VLADIMIR Gabapentin 300 mg 12/31/21 18:00 Gabapentin 300 Mg Cap PO 01/05/22 17:59 QPM VLADIMIR Heparin Sodium (Porcine) 5,000 unit 12/21/21 10:00 12/25/21 09:35 Heparin 5,000 Unit/1 Ml Vial SUB-Q 5,000 unit Q12HR VLADIMIR Administration Hydralazine HCl 10 mg 12/22/21 18:31 12/22/21 18:50 Hydralazine 20 Mg/1 Ml Inj IV 10 mg Q3HR PRN Administration Hypertension Hydromorphone HCl 0.5 mg 12/21/21 06:15 12/23/21 03:13 Hydromorphone 1 Mg/1 Ml Inj IV 0.5 mg Q3H PRN Administration Pain , Severe (7-10) Sodium Chloride 1,000 mls @ 200 mls/hr 12/22/21 18:30 12/25/21 09:36 Nacl 0.9% 1000 Ml IV 200 mls/hr DIRECT VLADIMIR Administration Methylprednisolone Sodium Succinate 80 mg 12/22/21 18:59 12/25/21 05:33 Methylprednisolone Sod Succinate 125 Mg/2 Ml Inj IV 80 mg Q8HR VLADIMIR Administration Morphine Sulfate 2 mg 12/21/21 06:15 12/24/21 10:33 Morphine 2 Mg/1 Ml Inj IV 2 mg Q4H PRN Administration Pain, Moderate (4-6) Ondansetron HCl 4 mg 12/21/21 06:15 Ondansetron 4 Mg/2 Ml Inj IV Q8H PRN Nausea And Vomiting Sodium Chloride 10 ml 12/21/21 10:00 12/25/21 09:36 Sodium Chloride 0.9% 10 Ml Flush Syringe IV 10 ml BID VLADIMIR Administration Sodium Chloride 10 ml 12/21/21 06:15 Sodium Chloride 0.9% 10 Ml Flush Syringe IV PRN PRN LINE FLUSH Valsartan 160 mg 12/22/21 22:00 12/25/21 09:35 Valsartan 160mg Tab PO 160 mg DAILY VLADIMIR Administration
[2021-12-26] MEDS: SODIUM CHLORIDE 0.9% 1000 ML 1,000 ML IV SCH ×3 (04:18→21:26)
[2021-12-26 05:39] LABS: Hematocrit 37.1 % (35.5-45.6); Hemoglobin 12.4 gm/dl (11.8-15.2); Mean Corpuscular HGB Conc 34 % (32-34); Mean Corpuscular Volume 98 fl (84-94); Platelet Count 254 K/mm3 (140-440); Red Blood Count 3.77 M/mm3 (3.65-5.03); Red Cell Distribution Width 13.1 % (13.2-15.2)
[2021-12-26 05:59] LABS: Alanine Aminotransferase 364 units/L (7-56); Albumin 3.2 g/dL (3.9-5); Blood Urea Nitrogen 11 mg/dL (9-20); Hemolysis Index 8
[2021-12-26 06:00] LABS: BUN/Creatinine Ratio 18
[2021-12-26] MEDS: methylPREDNISolone Sod Succinate 125 MG/2 ML INJ IV SCH (06:03)
[2021-12-26] MEDS: GABAPENTIN 100 MG CAP PO SCH ×3 (06:03→21:24)
[2021-12-26] MEDS: IPRATROPIUM/ALBUTEROL SULFATE 3 ML AMPUL.NEB IH SCH ×2 (08:14→20:54)
[2021-12-26] MEDS: VALSARTAN 160MG TAB PO SCH (11:16)
[2021-12-26] MEDS: HEPARIN 5,000 UNIT/1 ML VIAL SUB-Q SCH ×2 (11:16→21:25)
[2021-12-26] MEDS: FAMOTIDINE 20 MG TAB PO SCH ×2 (11:16→21:24)
[2021-12-26] MEDS: DOCUSATE SODIUM 100 MG CAP PO SCH ×2 (11:16→21:24)
--- NOTE | 2021-12-26 11:43 | Progress Note ---
Assessment and Plan Assessment and plan: This is a transgendered female admitted with acute liver failure, rhabdomyolysis, s/p 4 compartment fasciotomy to left lower extremity Neuro: Neuropathy -Avoid delirium -Reorientation as needed -Maintain sleep-wake cycle -As needed analgesia -Neurology consulted, appreciate recommendations -Gabapentin Cardiac: ST, undiagnosed HTN -Blood pressure monitoring per protocol -Valsartan -PRN hydralazine Respiratory: NAD -Pulmanory hygiene -Supplemental oxygen as needed -SPO2 monitoring GI: Acute liver failure -GI consulted, appreciate recommendations -Per GI: Suspect due to rhabdomyolysis given elevated creatinine kinase levels -If ALT continues to rise recommend MRCP -Abdominal ultrasound shows mild diffuse biliary dilation, obstruction to lesion of the distal common bile duct cannot be excluded consider MRCP, no evidence of gallstones within the gallbladder -24 hours -250 mL -PPI -Regular diet -BR: colace -Trend LFTs : Rhabdomyolysis, acute kidney injury with vasomotor nephropathy now resolved -Nephrology consulted, appreciate recommendations -Strict intake and output -Renally dose medications -Avoid nephrotoxic medications -MIVF -Sodium bicarb -Trend BMP, CK ID: NAD -s/p abx therapy with levaquin (12/21-12/23) -f/u blood culture -Monitor WBC and temperature curve Endo: NAD -Avoid hypoglycemia -SSI -Accu-Cheks q. xxx -Long-acting insulin, titrate as needed Heme: NAD -Trend CBC -Transfuse hemoglobin less than 7 -Monitor for signs of bleeding -Heparin subq MS: Compartment syndrome to LLE -Vascular surgery consulted, appreciate recommendations -s/p self admin of IM abx to midthigh -c/o pain, decreased sensation, pulses were dopplarable, paralysis, mottled skin -s/p 4 compartment tracheotomy on 12/21 with vascular surgery -Bilateral lower extremity Doppler ultrasound showed no DVT -Left lower extremity CT with contrast showed appearance of posterior soft tissue complex cellulitis with small subcutaneous lymph nodes, no drainable fluid collections present, contusion could have similar appearance -Bilateral lower extremity arterial duplex showed no significant lower extremity peripheral artery disease -Normal ABIs History Interval history: This is a 36 year old transgendered female undergoing gender transformation with silicone injection to buttocks ([place] 2016) and breast implants, heavy drinker on the weekends (bottle of vodka) who presented to [facility] on 12/21 because of adverse drug reaction after reportedly self administration of rocephin and PCN for sore throat. Patient reportedly collapsed while checking in to the emergency department, has complains of severe 10 out of 10 pain in left thigh and has noticeable mottling of skin in thigh and left lower abdomen. Patient underwent a CT of the left leg which showed possible cellulitis with no drainable fluid collection and was started on empiric antibiotics. Patient admitted to the hospital service with consult to surgery with left leg cellulitis and possible allergic reaction. Hospital course to date: 12/21: Venous ultrasound shows no DVT, Vascular surgery consulted who performed a fasciotomy and plan to transfer patient to [facility] post intervention. Neurology consulted 12/22: Transfer to ICU, GI and neurology consulted. 12/23: Patient will be transferred back to the floor from ICU. Her liver enzymes and creatinine are trending down. Will be started on gabapentin per neurology recommendations and antibiotics discontinued. 12/24: Continue supportive care. CPK slowly improving. Vascular plans for closure of fasciotomy early next week. PT OT evaluation and treatment closure done. Continue wound management. No evidence of withdrawal noted at this time. Continue to monitor LFTs which are also slightly improving. Plan discussed in detail with the patient who verbalized understanding 12/25: Patient seen and examined clinically stable continues to show some improvement. Closure of fasciotomy planned for tomorrow. Renal function is improving. CK ordered and pending 12/26: Patient seen and examined, wbc mildly elevated likely secondary to steroids, will change to po for two additional days and stop, benefit probably already achieved, continue wound dressing, sensory function improved, awaiting wound vac and closure. Patient advised on clinically progress. History Interval history: Patient seen and examined this morning resting comfortably. No new complaints at this time. Dressing still in place left lower extremity awaiting closure wh ich could happen next week. Hospitalist Physical - Physical exam Narrative exam: General appearance: Present: no acute distress - EENT Eyes: Present: PERRL, EOM intact ENT: hearing intact, clear oral mucosa, dentition normal - Neck Neck: Present: normal ROM - Respiratory Respiratory effort: normal Respiratory: bilateral: CTA - Cardiovascular Rhythm: regular Heart Sounds: Present: S1 & S2. Absent: systolic murmur, diastolic murmur - Extremities Extremity abnormal: edema, cyanosis, pulses diminished, tenderness Peripheral Pulses: abnormal - Peripheral pulses dorsalis pedis Pulse Strength: 2+ posterial tibial Pulse Strength: 2+ - Abdominal General gastrointestinal: soft, non-tender, non-distended, normal bowel sounds - Integumentary Integumentary: Present: warm, dry, evidence of surgically implanted breast and gluteal region noted. Left lower extremity with dressing significant edema remains in place open wound. initial dusky dorasal noted improving. No padma necrosis noted - Psychiatric Psychiatric: appropriate mood/affect, cooperative - Neurologic Neurologic: CNII-XII intact, no focal deficits, moves all extremities - Allied Health Allied health notes reviewed: nursing, social work - Constitutional Vitals: Temp Pulse Resp BP Pulse Ox 98.6 F 76 18 138/92 96 12/26/21 04:25 12/25/21 21:13 12/26/21 04:58 12/26/21 04:25 12/26/21 04:58 General appearance: Present: no acute distress Results - Labs CBC & Chem 7: 12/26/21 04:53 12/26/21 04:53 Labs: Laboratory Last Values WBC 18.1 K/mm3 (4.5-11.0) H 12/26/21 04:53 RBC 3.77 M/mm3 (3.65-5.03) 12/26/21 04:53 Hgb 12.4 gm/dl (11.8-15.2) 12/26/21 04:53 Hct 37.1 % (35.5-45.6) 12/26/21 04:53 MCV 98 fl (84-94) H 12/26/21 04:53 MCH 33 pg (28-32) H 12/26/21 04:53 MCHC 34 % (32-34) 12/26/21 04:53 RDW 13.1 % (13.2-15.2) L 12/26/21 04:53 Plt Count 254 K/mm3 (140-440) 12/26/21 04:53 Lymph % (Auto) 7.8 % (13.4-35.0) L 12/23/21 04:49 [place] % (Auto) 10.6 % (0.0-7.3) H 12/23/21 04:49 Eos % (Auto) 0.0 % (0.0-4.3) 12/23/21 04:49 Baso % (Auto) 0.0 % (0.0-1.8) 12/23/21 04:49 Lymph # (Auto) 1.1 K/mm3 (1.2-5.4) L 12/23/21 04:49 [place] # (Auto) 1.5 K/mm3 (0.0-0.8) H 12/23/21 04:49 Eos # (Auto) 0.0 K/mm3 (0.0-0.4) 12/23/21 04:49 Baso # (Auto) 0.0 K/mm3 (0.0-0.1) 12/23/21 04:49 Add Manual Diff Complete 12/20/21 23:35 Total Counted 100 12/20/21 23:35 Seg Neutrophils % 81.6 % (40.0-70.0) H 12/23/21 04:49 Seg Neuts % (Manual) 52.0 % (40.0-70.0) 12/20/21 23:35 Band Neutrophils % 0 % 12/20/21 23:35 Lymphocytes % (Manual) 41.0 % (13.4-35.0) H 12/20/21 23:35 Reactive Lymphs % (Man) 0 % 12/20/21 23:35 Monocytes % (Manual) 7.0 % (0.0-7.3) 12/20/21 23:35 Eosinophils % (Manual) 0 % (0.0-4.3) 12/20/21 23:35 Basophils % (Manual) 0 % (0.0-1.8) 12/20/21 23:35 Metamyelocytes % 0 % 12/20/21 23:35 Myelocytes % 0 % 12/20/21 23:35 Promyelocytes % 0 % 12/20/21 23:35 Blast Cells % 0 % 12/20/21 23:35 Nucleated RBC % Not Reportable 12/20/21 23:35 Seg Neutrophils # 11.6 K/mm3 (1.8-7.7) H 12/23/21 04:49 Seg Neutrophils # Man 7.3 K/mm3 (1.8-7.7) 12/20/21 23:35 Band Neutrophils # 0.0 K/mm3 12/20/21 23:35 Lymphocytes # (Manual) 5.7 K/mm3 (1.2-5.4) H 12/20/21 23:35 Abs React Lymphs (Man) 0.0 K/mm3 12/20/21 23:35 Monocytes # (Manual) 1.0 K/mm3 (0.0-0.8) H 12/20/21 23:35 Eosinophils # (Manual) 0.0 K/mm3 (0.0-0.4) 12/20/21 23:35 Basophils # (Manual) 0.0 K/mm3 (0.0-0.1) 12/20/21 23:35 Metamyelocytes # 0.0 K/mm3 12/20/21 23:35 Myelocytes # 0.0 K/mm3 12/20/21 23:35 Promyelocytes # 0.0 K/mm3 12/20/21 23:35 Blast Cells # 0.0 K/mm3 12/20/21 23:35 WBC Morphology Not Reportable 12/20/21 23:35 Hypersegmented Neuts Not Reportable 12/20/21 23:35 Hyposegmented Neuts Not Reportable 12/20/21 23:35 Hypogranular Neuts Not Reportable 12/20/21 23:35 Smudge Cells Not Reportable 12/20/21 23:35 Toxic Granulation Not Reportable 12/20/21 23:35 Toxic Vacuolation Not Reportable 12/20/21 23:35 Dohle Bodies Not Reportable 12/20/21 23:35 Pelger-Huet Anomaly Not Reportable 12/20/21 23:35 Aemrica Rods Not Reportable 12/20/21 23:35 Platelet Estimate Consistent w auto 12/20/21 23:35 Clumped Platelets Not Reportable 12/20/21 23:35 Plt Clumps, EDTA Not Reportable 12/20/21 23:35 Large Platelets Not Reportable 12/20/21 23:35 Giant Platelets Not Reportable 12/20/21 23:35 Platelet Satelliting Not Reportable 12/20/21 23:35 Plt Morphology Comment Not Reportable 12/20/21 23:35 RBC Morphology Normal 12/20/21 23:35 Dimorphic RBCs Not Reportable 12/20/21 23:35 Polychromasia Not Reportable 12/20/21 23:35 Hypochromasia Not Reportable 12/20/21 23:35 Poikilocytosis Not Reportable 12/20/21 23:35 Anisocytosis Not Reportable 12/20/21 23:35 Microcytosis Not Reportable 12/20/21 23:35 Macrocytosis Not Reportable 12/20/21 23:35 Spherocytes Not Reportable 12/20/21 23:35 Pappenheimer Bodies Not Reportable 12/20/21 23:35 Sickle Cells Not Reportable 12/20/21 23:35 Target Cells Not Reportable 12/20/21 23:35 Tear Drop Cells Not Reportable 12/20/21 23:35 Ovalocytes Not Reportable 12/20/21 23:35 Helmet Cells Not Reportable 12/20/21 23:35 [place] Bodies Not Reportable 12/20/21 23:35 [place] Rings Not Reportable 12/20/21 23:35 [place] Cells Not Reportable 12/20/21 23:35 Bite Cells Not Reportable 12/20/21 23:35 Crenated Cell Not Reportable 12/20/21 23:35 Elliptocytes Not Reportable 12/20/21 23:35 Acanthocytes (Spur) Not Reportable 12/20/21 23:35 Rouleaux Not Reportable 12/20/21 23:35 Hemoglobin C Crystals Not Reportable 12/20/21 23:35 Schistocytes Not Reportable 12/20/21 23:35 Malaria parasites Not Reportable 12/20/21 23:35 [place] Bodies Not Reportable 12/20/21 23:35 Hem Pathologist Commnt No 12/20/21 23:35 PT 13.4 Sec. (12.2-14.9) 12/21/21 13:30 INR 0.92 (0.87-1.13) 12/21/21 13:30 APTT 25.8 Sec. (24.2-36.6) 12/21/21 13:30 Sodium 137 mmol/L (137-145) 12/26/21 04:53 Potassium 3.9 mmol/L (3.6-5.0) 12/26/21 04:53 Chloride 99.6 mmol/L (98-107) 12/26/21 04:53 Carbon Dioxide 24 mmol/L (22-30) 12/26/21 04:53 Anion Gap 17 mmol/L 12/26/21 04:53 BUN 11 mg/dL (9-20) 12/26/21 04:53 Creatinine 0.6 mg/dL (0.8-1.3) L 12/26/21 04:53 Estimated GFR > 60 ml/min 12/26/21 04:53 BUN/Creatinine Ratio 18 % 12/26/21 04:53 Glucose 198 mg/dL (75-100) H 12/26/21 04:53 Lactic Acid 1.40 mmol/L (0.7-2.0) 12/21/21 13:30 Calcium 8.0 mg/dL (8.4-10.2) L 12/26/21 04:53 Phosphorus 2.80 mg/dL (2.5-4.5) 12/24/21 05:17 Magnesium 2.20 mg/dL (1.7-2.3) 12/24/21 05:17 Total Bilirubin 0.30 mg/dL (0.1-1.2) 12/26/21 04:53 Direct Bilirubin < 0.2 mg/dL (0-0.2) 12/21/21 22:47 AST 292 units/L (5-40) H 12/26/21 04:53 ALT 364 units/L (7-56) H 12/26/21 04:53 Alkaline Phosphatase 72 units/L (35-129) 12/26/21 04:53 Ammonia 37.0 umol/L (25-60) 12/23/21 04:49 Total Creatine Kinase 06941 units/L (55-170) H 12/26/21 04:53 Total Protein 5.0 g/dL (6.3-8.2) L 12/26/21 04:53 Albumin 3.2 g/dL (3.9-5) L 12/26/21 04:53 Albumin/Globulin Ratio 1.8 % 12/26/21 04:53 Amylase 25 units/L (27-131) L 12/23/21 04:49 Lipase 10 units/L (13-60) L 12/23/21 04:49 Coronavirus (PCR) Negative (Negative) 12/22/21 11:40 Hep Bs Antigen Non-reactive (Negative) 12/21/21 13:30 Hep B Core IgM Ab Non-reactive (NonReactive) 12/21/21 13:30 Hepatitis C Antibody Non-reactive (NonReactive) 12/21/21 13:30 HIV 1&2 Antibody Rapid Non react (Non React) 12/22/21 16:42 HIV P24 Antigen Non react (Non React) 12/22/21 16:42 Microbiology: Microbiology 12/21/21 22:47 Peripheral/Venous Blood Culture - Preliminary NO GROWTH AFTER 4 DAYS 12/21/21 22:47 Peripheral/Venous Blood Culture - Preliminary NO GROWTH AFTER 4 DAYS Kaur/IV: Voiding Method Urinal Active Medications - Current Medications Current Medications: Generic Name Dose Route Start Last Admin Trade Name Freq PRN Reason Stop Dose Admin Albuterol 2.5 mg 12/21/21 06:15 Albuterol 2.5 Mg/3 Ml Nebu IH Q3HRT PRN Shortness Of Breath Albuterol/Ipratropium 1 ampul 12/22/21 08:00 12/26/21 08:14 Ipratropium/Albuterol Sulfate 3 Ml Ampul.Neb IH 1 ampul BIDRT VLADIMIR Administration Diphenhydramine HCl 25 mg 12/21/21 06:24 Diphenhydramine 50 Mg/Ml Vial IV Q6H PRN Skin Irritation Docusate Sodium 100 mg 12/23/21 22:00 12/26/21 11:16 Docusate Sodium 100 Mg Cap PO 100 mg BID VLADIMIR Administration Famotidine 20 mg 12/26/21 10:00 12/26/21 11:16 Famotidine 20 Mg Tab PO 20 mg BID VLADIMIR Administration Gabapentin 100 mg 12/23/21 22:30 12/26/21 06:03 Gabapentin 100 Mg Cap PO 12/30/21 22:29 100 mg Q8HR VLADIMIR Administration Gabapentin 100 mg 12/31/21 10:00 Gabapentin 100 Mg Cap PO 01/05/22 09:59 BID VLADIMIR Gabapentin 300 mg 12/31/21 18:00 Gabapentin 300 Mg Cap PO 01/05/22 17:59 QPM VLADIMIR Heparin Sodium (Porcine) 5,000 unit 12/21/21 10:00 12/26/21 11:16 Heparin 5,000 Unit/1 Ml Vial SUB-Q 5,000 unit Q12HR VLADIMIR Administration Hydralazine HCl 10 mg 12/22/21 18:31 12/22/21 18:50 Hydralazine 20 Mg/1 Ml Inj IV 10 mg Q3HR PRN Administration Hypertension Hydromorphone HCl 0.5 mg 12/21/21 06:15 12/23/21 03:13 Hydromorphone 1 Mg/1 Ml Inj IV 0.5 mg Q3H PRN Administration Pain , Severe (7-10) Sodium Chloride 1,000 mls @ 200 mls/hr 12/22/21 18:30 12/26/21 04:18 Nacl 0.9% 1000 Ml IV 200 mls/hr DIRECT VLADIMIR Administration Morphine Sulfate 2 mg 12/21/21 06:15 12/24/21 10:33 Morphine 2 Mg/1 Ml Inj IV 2 mg Q4H PRN Administration Pain, Moderate (4-6) Ondansetron HCl 4 mg 12/21/21 06:15 Ondansetron 4 Mg/2 Ml Inj IV Q8H PRN Nausea And Vomiting Sodium Chloride 10 ml 12/21/21 10:00 12/26/21 11:16 Sodium Chloride 0.9% 10 Ml Flush Syringe IV 10 ml BID VLADIMIR Administration Sodium Chloride 10 ml 12/21/21 06:15 Sodium Chloride 0.9% 10 Ml Flush Syringe IV PRN PRN LINE FLUSH Valsartan 160 mg 12/22/21 22:00 12/26/21 11:16 Valsartan 160mg Tab PO 160 mg DAILY VLADIMIR Administration
--- NOTE | 2021-12-26 14:43 | Progress Note ---
Assessment and Plan # Acute Rhabdomyolysis in setting of left leg compartment syndrome: - continue aggressive IVF (NS at 200ml/min reasonable), CK downtrending has been appropriately, CK down to 14K (peak >90k) - s/p fasciotomy per Dr. Swann/Lamin, seymour - supportive measures per primary - can hold lasix, use prn if respiratory status worsening/volume overload developing, but note appropriate urine output (5.3L) - can hold NaHCO3 as acid/base stable - follow renal function, electrolytes- currently stable # Transaminitis: in setting of rhabdomyolysis, note GI input Subjective Date of service: 12/26/21 Principal diagnosis: abnormal liver enzymes Interval history: No renal related clinical changes noted. Chart, vitals, labs reviewed. Objective - Exam Narrative Exam: General appearance: well-developed, well-nourished EENT: ATNC Neck: Present: neck supple, trachea midline Respiratory: Clear to Ascultation Heart: regular, S1S2 Gastrointestinal: Present: normoactive bowel sounds Integumentary: no rash, warm and dry Neurologic: no focal deficit, no asterixis - Vital Signs Vital signs: Vital Signs - 12hr 12/26/21 12/26/21 04:25 04:58 Temperature 98.6 F Respiratory 18 18 Rate Blood Pressure 138/92 O2 Sat by Pulse 96 Oximetry - Lab 12/26/21 04:53 12/26/21 04:53 Most recent lab results Calcium 8.0 mg/dL (8.4-10.2) L 12/26/21 04:53 Phosphorus 2.80 mg/dL (2.5-4.5) 12/24/21 05:17 Magnesium 2.20 mg/dL (1.7-2.3) 12/24/21 05:17 Medications & Allergies - Medications Allergies/Adverse Reactions: Allergies ceftriaxone [From Rocephin] Allergy (Severe, Verified 12/23/21 10:23) Unknown SEV[employer] Penicillins Allergy (Severe, Verified 12/23/21 10:23) Unknown SEVERE [employer] Home Medications: Home Medications Medication Instructions Recorded Confirmed Last Taken Type No Known Home Medications [No 12/21/21 12/21/21 Unknown History Reported Home Medications] Active Medications: Generic Name Dose Route Start Last Admin Trade Name Freq PRN Reason Stop Dose Admin Albuterol 2.5 mg 12/21/21 06:15 Albuterol 2.5 Mg/3 Ml Nebu IH Q3HRT PRN Shortness Of Breath Albuterol/Ipratropium 1 ampul 12/22/21 08:00 12/26/21 08:14 Ipratropium/Albuterol Sulfate 3 Ml Ampul.Neb IH 1 ampul BIDRT VLADIMIR Administration Diphenhydramine HCl 25 mg 12/21/21 06:24 Diphenhydramine 50 Mg/Ml Vial IV Q6H PRN Skin Irritation Docusate Sodium 100 mg 12/23/21 22:00 12/26/21 11:16 Docusate Sodium 100 Mg Cap PO 100 mg BID VLADIMIR Administration Famotidine 20 mg 12/26/21 10:00 12/26/21 11:16 Famotidine 20 Mg Tab PO 20 mg BID VLADIMIR Administration Gabapentin 100 mg 12/23/21 22:30 12/26/21 06:03 Gabapentin 100 Mg Cap PO 12/30/21 22:29 100 mg Q8HR VLADIMIR Administration Gabapentin 100 mg 12/31/21 10:00 Gabapentin 100 Mg Cap PO 01/05/22 09:59 BID VLADIMIR Gabapentin 300 mg 12/31/21 18:00 Gabapentin 300 Mg Cap PO 01/05/22 17:59 QPM VLADIMIR Heparin Sodium (Porcine) 5,000 unit 12/21/21 10:00 12/26/21 11:16 Heparin 5,000 Unit/1 Ml Vial SUB-Q 5,000 unit Q12HR VLADIMIR Administration Hydralazine HCl 10 mg 12/22/21 18:31 12/22/21 18:50 Hydralazine 20 Mg/1 Ml Inj IV 10 mg Q3HR PRN Administration Hypertension Hydromorphone HCl 0.5 mg 12/21/21 06:15 12/23/21 03:13 Hydromorphone 1 Mg/1 Ml Inj IV 0.5 mg Q3H PRN Administration Pain , Severe (7-10) Sodium Chloride 1,000 mls @ 200 mls/hr 12/22/21 18:30 12/26/21 04:18 Nacl 0.9% 1000 Ml IV 200 mls/hr DIRECT VLADIMIR Administration Morphine Sulfate 2 mg 12/21/21 06:15 12/24/21 10:33 Morphine 2 Mg/1 Ml Inj IV 2 mg Q4H PRN Administration Pain, Moderate (4-6) Ondansetron HCl 4 mg 12/21/21 06:15 Ondansetron 4 Mg/2 Ml Inj IV Q8H PRN Nausea And Vomiting Prednisone 40 mg 12/26/21 12:00 Prednisone 20 Mg Tab PO 12/27/21 10:01 QDAY VLADIMIR Sodium Chloride 10 ml 12/21/21 10:00 12/26/21 11:16 Sodium Chloride 0.9% 10 Ml Flush Syringe IV 10 ml BID VLADIMIR Administration Sodium Chloride 10 ml 12/21/21 06:15 Sodium Chloride 0.9% 10 Ml Flush Syringe IV PRN PRN LINE FLUSH Valsartan 160 mg 12/22/21 22:00 12/26/21 11:16 Valsartan 160mg Tab PO 160 mg DAILY VLADIMIR Administration
[2021-12-26] MEDS: predniSONE 20 MG TAB PO SCH (14:45)
[2021-12-26] MEDS: diphenhydrAMINE 50 MG/ML VIAL IV PRN (18:49)
[2021-12-27] MEDS: SODIUM CHLORIDE 0.9% 1000 ML 1,000 ML IV SCH ×3 (03:37→22:45)
[2021-12-27] MEDS: GABAPENTIN 100 MG CAP PO SCH ×3 (05:44→22:23)
[2021-12-27 05:53] LABS: Hematocrit 37.5 % (35.5-45.6); Hemoglobin 12.4 gm/dl (11.8-15.2); Mean Corpuscular HGB Conc 33 % (32-34); Mean Corpuscular Volume 99 fl (84-94); Platelet Count 284 K/mm3 (140-440); Red Blood Count 3.78 M/mm3 (3.65-5.03)
[2021-12-27 06:15] LABS: Alanine Aminotransferase 321 units/L (7-56); Albumin 2.9 g/dL (3.9-5); BUN/Creatinine Ratio 24; Blood Urea Nitrogen 12 mg/dL (9-20); Hemolysis Index 5
[2021-12-27] MEDS: FAMOTIDINE 20 MG TAB PO SCH ×2 (09:27→22:23)
[2021-12-27] MEDS: VALSARTAN 160MG TAB PO SCH (09:27)
[2021-12-27] MEDS: HEPARIN 5,000 UNIT/1 ML VIAL SUB-Q SCH ×2 (09:27→22:23)
[2021-12-27] MEDS: DOCUSATE SODIUM 100 MG CAP PO SCH ×2 (09:27→22:23)
[2021-12-27] MEDS: predniSONE 20 MG TAB PO SCH (09:28)
[2021-12-27] MEDS: IPRATROPIUM/ALBUTEROL SULFATE 3 ML AMPUL.NEB IH SCH ×2 (09:57→21:41)
--- NOTE | 2021-12-27 12:25 | Progress Note ---
Assessment and Plan Assessment and plan: This is a transgendered female admitted with acute liver failure, rhabdomyolysis, s/p 4 compartment fasciotomy to left lower extremity Neuro: Neuropathy -Avoid delirium -Reorientation as needed -Maintain sleep-wake cycle -As needed analgesia -Neurology consulted, appreciate recommendations -Gabapentin Cardiac: ST, undiagnosed HTN -Blood pressure monitoring per protocol -Valsartan -PRN hydralazine Respiratory: NAD -Pulmanory hygiene -Supplemental oxygen as needed -SPO2 monitoring GI: Acute liver failure -GI consulted, appreciate recommendations -Per GI: Suspect due to rhabdomyolysis given elevated creatinine kinase levels -If ALT continues to rise recommend MRCP -Abdominal ultrasound shows mild diffuse biliary dilation, obstruction to lesion of the distal common bile duct cannot be excluded consider MRCP, no evidence of gallstones within the gallbladder -24 hours -250 mL -PPI -Regular diet -BR: colace -Trend LFTs : Rhabdomyolysis, acute kidney injury with vasomotor nephropathy now resolved -Nephrology consulted, appreciate recommendations -Strict intake and output -Renally dose medications -Avoid nephrotoxic medications -MIVF -Sodium bicarb -Trend BMP, CK ID: NAD -s/p abx therapy with levaquin (12/21-12/23) -f/u blood culture -Monitor WBC and temperature curve Endo: NAD -Avoid hypoglycemia -SSI -Accu-Cheks q. xxx -Long-acting insulin, titrate as needed Heme: NAD -Trend CBC -Transfuse hemoglobin less than 7 -Monitor for signs of bleeding -Heparin subq MS: Compartment syndrome to LLE -Vascular surgery consulted, appreciate recommendations -s/p self admin of IM abx to midthigh -c/o pain, decreased sensation, pulses were dopplarable, paralysis, mottled skin -s/p 4 compartment tracheotomy on 12/21 with vascular surgery -Bilateral lower extremity Doppler ultrasound showed no DVT -Left lower extremity CT with contrast showed appearance of posterior soft tissue complex cellulitis with small subcutaneous lymph nodes, no drainable fluid collections present, contusion could have similar appearance -Bilateral lower extremity arterial duplex showed no significant lower extremity peripheral artery disease -Normal ABIs History Interval history: This is a 36 year old transgendered female undergoing gender transformation with silicone injection to buttocks ([place] 2016) and breast implants, heavy drinker on the weekends (bottle of vodka) who presented to [facility] on 12/21 because of adverse drug reaction after reportedly self administration of rocephin and PCN for sore throat. Patient reportedly collapsed while checking in to the emergency department, has complains of severe 10 out of 10 pain in left thigh and has noticeable mottling of skin in thigh and left lower abdomen. Patient underwent a CT of the left leg which showed possible cellulitis with no drainable fluid collection and was started on empiric antibiotics. Patient admitted to the hospital service with consult to surgery with left leg cellulitis and possible allergic reaction. Hospital course to date: 12/21: Venous ultrasound shows no DVT, Vascular surgery consulted who performed a fasciotomy and plan to transfer patient to [facility] post intervention. Neurology consulted 12/22: Transfer to ICU, GI and neurology consulted. 12/23: Patient will be transferred back to the floor from ICU. Her liver enzymes and creatinine are trending down. Will be started on gabapentin per neurology recommendations and antibiotics discontinued. 12/24: Continue supportive care. CPK slowly improving. Vascular plans for closure of fasciotomy early next week. PT OT evaluation and treatment closure done. Continue wound management. No evidence of withdrawal noted at this time. Continue to monitor LFTs which are also slightly improving. Plan discussed in detail with the patient who verbalized understanding 12/25: Patient seen and examined clinically stable continues to show some improvement. Closure of fasciotomy planned for tomorrow. Renal function is improving. CK ordered and pending 12/26: Patient seen and examined, wbc mildly elevated likely secondary to steroids, will change to po for two additional days and stop, benefit probably already achieved, continue wound dressing, sensory function improved, awaiting wound vac and closure. Patient advised on clinically progress. 12/27: Patient seen and examined awaiting her vascular surgery for closure of fasciotomy. CK is decreasing less than 9000 today. We will continue aggressive IV fluids until we have the resolution below 5000. LFTs on the downward trend also. Leukocytosis appears to have peaked steroids was changed to oral for 2 additional days today is 1 of 2.. Plan of care discussed in detail with the patient who verbalized understanding. Hospitalist Physical - Constitutional Vitals: Temp Pulse Resp BP Pulse Ox 98.3 F 89 16 140/86 96 12/27/21 04:35 12/27/21 09:57 12/27/21 09:57 12/27/21 09:27 12/27/21 10:00 General appearance: Present: no acute distress Results - Labs CBC & Chem 7: 12/27/21 05:08 12/27/21 05:08 Labs: Laboratory Last Values WBC 18.3 K/mm3 (4.5-11.0) H 12/27/21 05:08 RBC 3.78 M/mm3 (3.65-5.03) 12/27/21 05:08 Hgb 12.4 gm/dl (11.8-15.2) 12/27/21 05:08 Hct 37.5 % (35.5-45.6) 12/27/21 05:08 MCV 99 fl (84-94) H 12/27/21 05:08 MCH 33 pg (28-32) H 12/27/21 05:08 MCHC 33 % (32-34) 12/27/21 05:08 RDW 13.0 % (13.2-15.2) L 12/27/21 05:08 Plt Count 284 K/mm3 (140-440) 12/27/21 05:08 Lymph % (Auto) 7.8 % (13.4-35.0) L 12/23/21 04:49 Reagan % (Auto) 10.6 % (0.0-7.3) H 12/23/21 04:49 Eos % (Auto) 0.0 % (0.0-4.3) 12/23/21 04:49 Baso % (Auto) 0.0 % (0.0-1.8) 12/23/21 04:49 Lymph # (Auto) 1.1 K/mm3 (1.2-5.4) L 12/23/21 04:49 Reagan # (Auto) 1.5 K/mm3 (0.0-0.8) H 12/23/21 04:49 Eos # (Auto) 0.0 K/mm3 (0.0-0.4) 12/23/21 04:49 Baso # (Auto) 0.0 K/mm3 (0.0-0.1) 12/23/21 04:49 Add Manual Diff Complete 12/20/21 23:35 Total Counted 100 12/20/21 23:35 Seg Neutrophils % 81.6 % (40.0-70.0) H 12/23/21 04:49 Seg Neuts % (Manual) 52.0 % (40.0-70.0) 12/20/21 23:35 Band Neutrophils % 0 % 12/20/21 23:35 Lymphocytes % (Manual) 41.0 % (13.4-35.0) H 12/20/21 23:35 Reactive Lymphs % (Man) 0 % 12/20/21 23:35 Monocytes % (Manual) 7.0 % (0.0-7.3) 12/20/21 23:35 Eosinophils % (Manual) 0 % (0.0-4.3) 12/20/21 23:35 Basophils % (Manual) 0 % (0.0-1.8) 12/20/21 23:35 Metamyelocytes % 0 % 12/20/21 23:35 Myelocytes % 0 % 12/20/21 23:35 Promyelocytes % 0 % 12/20/21 23:35 Blast Cells % 0 % 12/20/21 23:35 Nucleated RBC % Not Reportable 12/20/21 23:35 Seg Neutrophils # 11.6 K/mm3 (1.8-7.7) H 12/23/21 04:49 Seg Neutrophils # Man 7.3 K/mm3 (1.8-7.7) 12/20/21 23:35 Band Neutrophils # 0.0 K/mm3 12/20/21 23:35 Lymphocytes # (Manual) 5.7 K/mm3 (1.2-5.4) H 12/20/21 23:35 Abs React Lymphs (Man) 0.0 K/mm3 12/20/21 23:35 Monocytes # (Manual) 1.0 K/mm3 (0.0-0.8) H 12/20/21 23:35 Eosinophils # (Manual) 0.0 K/mm3 (0.0-0.4) 12/20/21 23:35 Basophils # (Manual) 0.0 K/mm3 (0.0-0.1) 12/20/21 23:35 Metamyelocytes # 0.0 K/mm3 12/20/21 23:35 Myelocytes # 0.0 K/mm3 12/20/21 23:35 Promyelocytes # 0.0 K/mm3 12/20/21 23:35 Blast Cells # 0.0 K/mm3 12/20/21 23:35 WBC Morphology Not Reportable 12/20/21 23:35 Hypersegmented Neuts Not Reportable 12/20/21 23:35 Hyposegmented Neuts Not Reportable 12/20/21 23:35 Hypogranular Neuts Not Reportable 12/20/21 23:35 Smudge Cells Not Reportable 12/20/21 23:35 Toxic Granulation Not Reportable 12/20/21 23:35 Toxic Vacuolation Not Reportable 12/20/21 23:35 Dohle Bodies Not Reportable 12/20/21 23:35 Pelger-Huet Anomaly Not Reportable 12/20/21 23:35 [place] Rods Not Reportable 12/20/21 23:35 Platelet Estimate Consistent w auto 12/20/21 23:35 Clumped Platelets Not Reportable 12/20/21 23:35 Plt Clumps, EDTA Not Reportable 12/20/21 23:35 Large Platelets Not Reportable 12/20/21 23:35 Giant Platelets Not Reportable 12/20/21 23:35 Platelet Satelliting Not Reportable 12/20/21 23:35 Plt Morphology Comment Not Reportable 12/20/21 23:35 RBC Morphology Normal 12/20/21 23:35 Dimorphic RBCs Not Reportable 12/20/21 23:35 Polychromasia Not Reportable 12/20/21 23:35 Hypochromasia Not Reportable 12/20/21 23:35 Poikilocytosis Not Reportable 12/20/21 23:35 Anisocytosis Not Reportable 12/20/21 23:35 Microcytosis Not Reportable 12/20/21 23:35 Macrocytosis Not Reportable 12/20/21 23:35 Spherocytes Not Reportable 12/20/21 23:35 Pappenheimer Bodies Not Reportable 12/20/21 23:35 Sickle Cells Not Reportable 12/20/21 23:35 Target Cells Not Reportable 12/20/21 23:35 Tear Drop Cells Not Reportable 12/20/21 23:35 Ovalocytes Not Reportable 12/20/21 23:35 Helmet Cells Not Reportable 12/20/21 23:35 [place] Bodies Not Reportable 12/20/21 23:35 Jean Rings Not Reportable 12/20/21 23:35 Sebastien Cells Not Reportable 12/20/21 23:35 Bite Cells Not Reportable 12/20/21 23:35 Crenated Cell Not Reportable 12/20/21 23:35 Elliptocytes Not Reportable 12/20/21 23:35 Acanthocytes (Spur) Not Reportable 12/20/21 23:35 Rouleaux Not Reportable 12/20/21 23:35 Hemoglobin C Crystals Not Reportable 12/20/21 23:35 Schistocytes Not Reportable 12/20/21 23:35 Malaria parasites Not Reportable 12/20/21 23:35 [place] Bodies Not Reportable 12/20/21 23:35 Hem Pathologist Commnt No 12/20/21 23:35 PT 13.4 Sec. (12.2-14.9) 12/21/21 13:30 INR 0.92 (0.87-1.13) 12/21/21 13:30 APTT 25.8 Sec. (24.2-36.6) 12/21/21 13:30 Sodium 138 mmol/L (137-145) 12/27/21 05:08 Potassium 3.8 mmol/L (3.6-5.0) 12/27/21 05:08 Chloride 101.6 mmol/L (98-107) 12/27/21 05:08 Carbon Dioxide 26 mmol/L (22-30) 12/27/21 05:08 Anion Gap 14 mmol/L 12/27/21 05:08 BUN 12 mg/dL (9-20) 12/27/21 05:08 Creatinine 0.5 mg/dL (0.8-1.3) L 12/27/21 05:08 Estimated GFR > 60 ml/min 12/27/21 05:08 BUN/Creatinine Ratio 24 % 12/27/21 05:08 Glucose 98 mg/dL (75-100) 12/27/21 05:08 Lactic Acid 1.40 mmol/L (0.7-2.0) 12/21/21 13:30 Calcium 8.0 mg/dL (8.4-10.2) L 12/27/21 05:08 Phosphorus 2.80 mg/dL (2.5-4.5) 12/24/21 05:17 Magnesium 2.20 mg/dL (1.7-2.3) 12/24/21 05:17 Total Bilirubin 0.30 mg/dL (0.1-1.2) 12/27/21 05:08 Direct Bilirubin < 0.2 mg/dL (0-0.2) 12/21/21 22:47 AST 177 units/L (5-40) H 12/27/21 05:08 ALT 321 units/L (7-56) H 12/27/21 05:08 Alkaline Phosphatase 68 units/L (35-129) 12/27/21 05:08 Ammonia 37.0 umol/L (25-60) 12/23/21 04:49 Total Creatine Kinase 8066 units/L (55-170) H 12/27/21 05:08 Total Protein 4.8 g/dL (6.3-8.2) L 12/27/21 05:08 Albumin 2.9 g/dL (3.9-5) L 12/27/21 05:08 Albumin/Globulin Ratio 1.5 % 12/27/21 05:08 Amylase 25 units/L (27-131) L 12/23/21 04:49 Lipase 10 units/L (13-60) L 12/23/21 04:49 Coronavirus (PCR) Negative (Negative) 12/22/21 11:40 Hep Bs Antigen Non-reactive (Negative) 12/21/21 13:30 Hep B Core IgM Ab Non-reactive (NonReactive) 12/21/21 13:30 Hepatitis C Antibody Non-reactive (NonReactive) 12/21/21 13:30 HIV 1&2 Antibody Rapid Non react (Non React) 12/22/21 16:42 HIV P24 Antigen Non react (Non React) 12/22/21 16:42 Microbiology: Microbiology 12/21/21 22:47 Peripheral/Venous Blood Culture - Final NO GROWTH AFTER 5 DAYS 12/21/21 22:47 Peripheral/Venous Blood Culture - Final NO GROWTH AFTER 5 DAYS Kaur/IV: Voiding Method Urinal Active Medications - Current Medications Current Medications: Generic Name Dose Route Start Last Admin Trade Name Freq PRN Reason Stop Dose Admin Albuterol 2.5 mg 12/21/21 06:15 Albuterol 2.5 Mg/3 Ml Nebu IH Q3HRT PRN Shortness Of Breath Albuterol/Ipratropium 1 ampul 12/22/21 08:00 12/27/21 09:57 Ipratropium/Albuterol Sulfate 3 Ml Ampul.Neb IH 1 ampul BIDRT VLADIMIR Administration Diphenhydramine HCl 25 mg 12/21/21 06:24 12/26/21 18:49 Diphenhydramine 50 Mg/Ml Vial IV 25 mg Q6H PRN Administration Skin Irritation Docusate Sodium 100 mg 12/23/21 22:00 12/27/21 09:27 Docusate Sodium 100 Mg Cap PO 100 mg BID VLADIMIR Administration Famotidine 20 mg 12/26/21 10:00 12/27/21 09:27 Famotidine 20 Mg Tab PO 20 mg BID VLADIMIR Administration Gabapentin 100 mg 12/23/21 22:30 12/27/21 05:44 Gabapentin 100 Mg Cap PO 12/30/21 22:29 100 mg Q8HR VLADIMIR Administration Gabapentin 100 mg 12/31/21 10:00 Gabapentin 100 Mg Cap PO 01/05/22 09:59 BID VLADIMIR Gabapentin 300 mg 12/31/21 18:00 Gabapentin 300 Mg Cap PO 01/05/22 17:59 QPM VLADIMIR Heparin Sodium (Porcine) 5,000 unit 12/21/21 10:00 12/27/21 09:27 Heparin 5,000 Unit/1 Ml Vial SUB-Q 5,000 unit Q12HR VLADIMIR Administration Hydralazine HCl 10 mg 12/22/21 18:31 12/22/21 18:50 Hydralazine 20 Mg/1 Ml Inj IV 10 mg Q3HR PRN Administration Hypertension Hydromorphone HCl 0.5 mg 12/21/21 06:15 12/23/21 03:13 Hydromorphone 1 Mg/1 Ml Inj IV 0.5 mg Q3H PRN Administration Pain , Severe (7-10) Sodium Chloride 1,000 mls @ 200 mls/hr 12/22/21 18:30 12/27/21 03:37 Nacl 0.9% 1000 Ml IV 200 mls/hr DIRECT VLADIMIR Administration Morphine Sulfate 2 mg 12/21/21 06:15 12/24/21 10:33 Morphine 2 Mg/1 Ml Inj IV 2 mg Q4H PRN Administration Pain, Moderate (4-6) Ondansetron HCl 4 mg 12/21/21 06:15 Ondansetron 4 Mg/2 Ml Inj IV Q8H PRN Nausea And Vomiting Sodium Chloride 10 ml 12/21/21 10:00 12/27/21 09:28 Sodium Chloride 0.9% 10 Ml Flush Syringe IV 10 ml BID VLADIMIR Administration Sodium Chloride 10 ml 12/21/21 06:15 Sodium Chloride 0.9% 10 Ml Flush Syringe IV PRN PRN LINE FLUSH Valsartan 160 mg 12/22/21 22:00 12/27/21 09:27 Valsartan 160mg Tab PO 160 mg DAILY VLADIMIR Administration
--- NOTE | 2021-12-27 14:06 | Progress Note ---
Assessment and Plan Left lower extremity compartment syndrome status post fasciotomies. Cause is still unclear and may represent some allergic reaction. Motor function is unchanged from original exam. Sensory function has improved with full sensation of the foot. We will see about placing wound vacs on the leg tomorrow. N.p.o. after midnight except sips of water with meds. Discussed with patient and friends at bedside that this may take 3 to 6 months to completely heal. They understand. Subjective Date of service: 12/27/21 Principal diagnosis: abnormal liver enzymes Interval history: Minimal discomfort of the left leg. Left foot has some areas of duskiness which continue to improving. Strongly palpable left dorsalis pedis and posterior tibial pulse. The patient has sensation of the foot. No motor function of the foot. Motor is unchanged from the original exam. Bandage over fasciotomies. Objective - Constitutional Vitals: Vital Signs - 12hr 12/27/21 12/27/21 12/27/21 04:35 09:27 09:57 Temperature 98.3 F Pulse Rate 76 76 Pulse Rate [ 89 Anterior Bilateral Throughout] Respiratory 16 Rate Respiratory 16 Rate [Anterior Bilateral Throughout] Blood Pressure 141/100 140/86 O2 Sat by Pulse 96 Oximetry 12/27/21 10:00 Temperature Pulse Rate Pulse Rate [ Anterior Bilateral Throughout] Respiratory Rate Respiratory Rate [Anterior Bilateral Throughout] Blood Pressure O2 Sat by Pulse 96 Oximetry General appearance: Present: no acute distress - EENT Eyes: EOM intact ENT: hearing intact - Respiratory Respiratory effort: normal Extremities: abnormal (left leg fasciotomies with bandages) - Gastrointestinal General gastrointestinal: Present: soft, non-tender - Psychiatric Psychiatric: appropriate mood/affect, cooperative - Labs CBC & Chem 7: 12/27/21 05:08 12/27/21 05:08 Labs: Abnormal lab results 12/27/21 12/27/21 Range/Units 05:08 05:08 WBC 18.3 H (4.5-11.0) K/mm3 MCV 99 H (84-94) fl MCH 33 H (28-32) pg RDW 13.0 L (13.2-15.2) % Creatinine 0.5 L (0.8-1.3) mg/dL Calcium 8.0 L (8.4-10.2) mg/dL AST 177 H (5-40) units/L ALT 321 H (7-56) units/L Total Creatine Kinase 8066 H (55-170) units/L Total Protein 4.8 L (6.3-8.2) g/dL Albumin 2.9 L (3.9-5) g/dL Medications & Allergies - Medications Allergies/Adverse Reactions: Allergies ceftriaxone [From Rocephin] Allergy (Severe, Verified 12/23/21 10:23) Unknown SEVERE RASH MOTTLING OF THE SKIN [employer] Penicillins Allergy (Severe, Verified 12/23/21 10:23) Unknown SEVERE RASH MOTTLING OF THE SKIN [employer] Home Medications: Home Medications Medication Instructions Recorded Confirmed Last Taken Type No Known Home Medications [No 12/21/21 12/21/21 Unknown History Reported Home Medications] Active Medications: Generic Name Dose Route Start Last Admin Trade Name Freq PRN Reason Stop Dose Admin Albuterol 2.5 mg 12/21/21 06:15 Albuterol 2.5 Mg/3 Ml Nebu IH Q3HRT PRN Shortness Of Breath Albuterol/Ipratropium 1 ampul 12/22/21 08:00 12/27/21 09:57 Ipratropium/Albuterol Sulfate 3 Ml Ampul.Neb IH 1 ampul BIDRT VLADIMIR Administration Diphenhydramine HCl 25 mg 12/21/21 06:24 12/26/21 18:49 Diphenhydramine 50 Mg/Ml Vial IV 25 mg Q6H PRN Administration Skin Irritation Docusate Sodium 100 mg 12/23/21 22:00 12/27/21 09:27 Docusate Sodium 100 Mg Cap PO 100 mg BID VLADIMIR Administration Famotidine 20 mg 12/26/21 10:00 12/27/21 09:27 Famotidine 20 Mg Tab PO 20 mg BID VLADIMIR Administration Gabapentin 100 mg 12/23/21 22:30 12/27/21 05:44 Gabapentin 100 Mg Cap PO 12/30/21 22:29 100 mg Q8HR VLADIMIR Administration Gabapentin 100 mg 12/31/21 10:00 Gabapentin 100 Mg Cap PO 01/05/22 09:59 BID VLADIMIR Gabapentin 300 mg 12/31/21 18:00 Gabapentin 300 Mg Cap PO 01/05/22 17:59 QPM VLADIMIR Heparin Sodium (Porcine) 5,000 unit 12/21/21 10:00 12/27/21 09:27 Heparin 5,000 Unit/1 Ml Vial SUB-Q 5,000 unit Q12HR VLADIMIR Administration Hydralazine HCl 10 mg 12/22/21 18:31 12/22/21 18:50 Hydralazine 20 Mg/1 Ml Inj IV 10 mg Q3HR PRN Administration Hypertension Hydromorphone HCl 0.5 mg 12/21/21 06:15 12/23/21 03:13 Hydromorphone 1 Mg/1 Ml Inj IV 0.5 mg Q3H PRN Administration Pain , Severe (7-10) Sodium Chloride 1,000 mls @ 200 mls/hr 12/22/21 18:30 12/27/21 03:37 Nacl 0.9% 1000 Ml IV 200 mls/hr DIRECT VLADIMIR Administration Morphine Sulfate 2 mg 12/21/21 06:15 12/24/21 10:33 Morphine 2 Mg/1 Ml Inj IV 2 mg Q4H PRN Administration Pain, Moderate (4-6) Ondansetron HCl 4 mg 12/21/21 06:15 Ondansetron 4 Mg/2 Ml Inj IV Q8H PRN Nausea And Vomiting Sodium Chloride 10 ml 12/21/21 10:00 12/27/21 09:28 Sodium Chloride 0.9% 10 Ml Flush Syringe IV 10 ml BID VLADIMIR Administration Sodium Chloride 10 ml 12/21/21 06:15 Sodium Chloride 0.9% 10 Ml Flush Syringe IV PRN PRN LINE FLUSH Valsartan 160 mg 12/22/21 22:00 12/27/21 09:27 Valsartan 160mg Tab PO 160 mg DAILY VLADIMIR Administration
[2021-12-27] MEDS: MORPHINE 2 MG/1 ML INJ IV PRN ×2 (14:46→22:27)
--- NOTE | 2021-12-27 15:07 | Anesthesia Consultation ---
<MATTIE VARELA - Last Filed: 12/27/21 15:05> Anesthesia Consult and Med Hx Date of service: 12/27/21 - Airway Anesthetic Teeth Evaluation: Good ROM Head & Neck: Adequate Mental/Hyoid Distance: Adequate Mallampati Class: Class I Intubation Access Assessment: Probably Good - Pulmonary Exam CTA: Yes - Cardiac Exam Cardiac Exam: RRR - Pre-Operative Health Status ASA Pre-Surgery Classification: ASA2 Proposed Anesthetic Plan: General - Pulmonary Hx Smoking: No Hx Asthma: No Hx Respiratory Symptoms: No SOB: No COPD: No Home Oxygen Therapy: No Hx Pneumonia: No Hx Sleep Apnea: No - Cardiovascular System Hx Hypertension: No Hx Coronary Artery Disease: No Hx Heart Attack/AMI: No Hx Angina: No Hx Percutaneous Transluminal Coronary Angioplasty (PTCA): No Hx Cardia Arrhythmia: No Hx Pacemaker: No Hx Internal Defibrillator: No Hx Valvular Heart Disease: No Hx Heart Murmur: No Hx Peripheral Vascular Disease: No - Central Nervous System Hx Neuromuscular Disorder: No Hx Seizures: No CVA: No Hx Back Pain: No Hx Psychiatric Problems: No - Gastrointestinal Hx Ulcer: No Hx Gastroesophageal Reflux Disease: No - Endocrine Hx Renal Disease: No Hx End Stage Renal Disease: No Hx Cirrhosis: No Hx Liver Disease: Yes (Markedly elevated LFTs) Hx Insulin Dependent Diabetes: No Hx Non-Insulin Dependent Diabetes: No Hx Thyroid Disease: No Hx Hypothyroidism: No Hx Hyperthyroidism: No - Hematic Hx Anemia: No Hx Sickle Cell Disease: No - Other Systems Hx Alcohol Use: No Hx Substance Use: No Hx Cancer: No Hx Obesity: No <MARI CRAFT - Last Filed: 12/28/21 18:17> Anesthesia Consult and Med Hx - Airway Anesthetic Teeth Evaluation: Good ROM Head & Neck: Adequate Mental/Hyoid Distance: Adequate Mallampati Class: Class I Intubation Access Assessment: Good - Pre-Operative Health Status ASA Pre-Surgery Classification: ASA3 Proposed Anesthetic Plan: MAC (conversion to GA if necessary) - Pulmonary Hx Respiratory Symptoms: No - Cardiovascular System Hx Hypertension: No - Endocrine Hx Renal Disease: No (DEVIN 2/2 rhabdomyolysis this admission now resolved) Hx Liver Disease: Yes (severe transaminitis on admission now improved) Hx Insulin Dependent Diabetes: No - Additional Comments Anesthesia Medical History Comments: No hx anesthetic complications.
--- NOTE | 2021-12-27 15:18 | Progress Note ---
Assessment and Plan # Acute Rhabdomyolysis in setting of left leg compartment syndrome: - continue aggressive IVF (NS at 200ml/min reasonable), CK downtrending has been appropriately, CK down to 8K (peak >90k) - can begin to taper IVF in next 1-2 days - s/p fasciotomy per Dr. Swann/Lamin, appreciate, note plans for wound vac - supportive measures per primary - can hold lasix, use prn if respiratory status worsening/volume overload developing, but note appropriate urine output - can hold NaHCO3 as acid/base stable - follow renal function, electrolytes- currently stable # Transaminitis: in setting of rhabdomyolysis, note GI input Subjective Date of service: 12/27/21 Principal diagnosis: abnormal liver enzymes Interval history: No renal related clinical changes noted. Chart, vitals, labs reviewed. Objective - Exam Narrative Exam: General appearance: well-developed, well-nourished EENT: ATNC Neck: Present: neck supple, trachea midline Respiratory: Clear to Ascultation Heart: regular, S1S2 Gastrointestinal: Present: normoactive bowel sounds Integumentary: no rash, warm and dry Neurologic: no focal deficit, no asterixis - Vital Signs Vital signs: Vital Signs - 12hr 12/27/21 12/27/21 12/27/21 04:35 09:27 09:57 Temperature 98.3 F Pulse Rate 76 76 Pulse Rate [ 89 Anterior Bilateral Throughout] Respiratory 16 Rate Respiratory 16 Rate [Anterior Bilateral Throughout] Blood Pressure 141/100 140/86 O2 Sat by Pulse 96 Oximetry 12/27/21 12/27/21 10:00 11:10 Temperature 98.9 F Pulse Rate 90 Pulse Rate [ Anterior Bilateral Throughout] Respiratory 20 Rate Respiratory Rate [Anterior Bilateral Throughout] Blood Pressure 134/80 O2 Sat by Pulse 96 97 Oximetry - Lab 12/27/21 05:08 12/27/21 05:08 Most recent lab results Calcium 8.0 mg/dL (8.4-10.2) L 12/27/21 05:08 Phosphorus 2.80 mg/dL (2.5-4.5) 12/24/21 05:17 Magnesium 2.20 mg/dL (1.7-2.3) 12/24/21 05:17 Medications & Allergies - Medications Allergies/Adverse Reactions: Allergies ceftriaxone [From Rocephin] Allergy (Severe, Verified 12/23/21 10:23) Unknown 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 Penicillins Allergy (Severe, Verified 12/23/21 10:23) Unknown 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 Home Medications: Home Medications Medication Instructions Recorded Confirmed Last Taken Type No Known Home Medications [No 12/21/21 12/21/21 Unknown History Reported Home Medications] Active Medications: Generic Name Dose Route Start Last Admin Trade Name Freq PRN Reason Stop Dose Admin Albuterol 2.5 mg 12/21/21 06:15 Albuterol 2.5 Mg/3 Ml Nebu IH Q3HRT PRN Shortness Of Breath Albuterol/Ipratropium 1 ampul 12/22/21 08:00 12/27/21 09:57 Ipratropium/Albuterol Sulfate 3 Ml Ampul.Neb IH 1 ampul BIDRT VLADIMIR Administration Diphenhydramine HCl 25 mg 12/21/21 06:24 12/26/21 18:49 Diphenhydramine 50 Mg/Ml Vial IV 25 mg Q6H PRN Administration Skin Irritation Docusate Sodium 100 mg 12/23/21 22:00 12/27/21 09:27 Docusate Sodium 100 Mg Cap PO 100 mg BID VLADIMIR Administration Famotidine 20 mg 12/26/21 10:00 12/27/21 09:27 Famotidine 20 Mg Tab PO 20 mg BID VLADIMIR Administration Gabapentin 100 mg 12/23/21 22:30 12/27/21 14:05 Gabapentin 100 Mg Cap PO 12/30/21 22:29 100 mg Q8HR VLADIMIR Administration Gabapentin 100 mg 12/31/21 10:00 Gabapentin 100 Mg Cap PO 01/05/22 09:59 BID VLADIMIR Gabapentin 300 mg 12/31/21 18:00 Gabapentin 300 Mg Cap PO 01/05/22 17:59 QPM VLADIMIR Heparin Sodium (Porcine) 5,000 unit 12/21/21 10:00 12/27/21 09:27 Heparin 5,000 Unit/1 Ml Vial SUB-Q 5,000 unit Q12HR VLADIMIR Administration Hydralazine HCl 10 mg 12/22/21 18:31 12/22/21 18:50 Hydralazine 20 Mg/1 Ml Inj IV 10 mg Q3HR PRN Administration Hypertension Hydromorphone HCl 0.5 mg 12/21/21 06:15 12/23/21 03:13 Hydromorphone 1 Mg/1 Ml Inj IV 0.5 mg Q3H PRN Administration Pain , Severe (7-10) Sodium Chloride 1,000 mls @ 200 mls/hr 12/22/21 18:30 12/27/21 14:41 Nacl 0.9% 1000 Ml IV 200 mls/hr DIRECT VLADIMIR Administration Morphine Sulfate 2 mg 12/21/21 06:15 12/27/21 14:46 Morphine 2 Mg/1 Ml Inj IV 2 mg Q4H PRN Administration Pain, Moderate (4-6) Ondansetron HCl 4 mg 12/21/21 06:15 Ondansetron 4 Mg/2 Ml Inj IV Q8H PRN Nausea And Vomiting Sodium Chloride 10 ml 12/21/21 10:00 12/27/21 09:28 Sodium Chloride 0.9% 10 Ml Flush Syringe IV 10 ml BID VLADIMIR Administration Sodium Chloride 10 ml 12/21/21 06:15 Sodium Chloride 0.9% 10 Ml Flush Syringe IV PRN PRN LINE FLUSH Valsartan 160 mg 12/22/21 22:00 12/27/21 09:27 Valsartan 160mg Tab PO 160 mg DAILY VLADIMIR Administration
[2021-12-28] MEDS: HYDROmorphone 1 MG/1 ML INJ IV PRN (03:05)
[2021-12-28] MEDS: GABAPENTIN 100 MG CAP PO SCH ×3 (05:31→21:44)
[2021-12-28] MEDS: SODIUM CHLORIDE 0.9% 1000 ML 1,000 ML IV SCH ×4 (05:32→23:35)
[2021-12-28] MEDS: MORPHINE 2 MG/1 ML INJ IV PRN ×3 (07:41→23:31)
[2021-12-28] MEDS: VALSARTAN 160MG TAB PO SCH ×2 (07:47→17:22)
--- NOTE | 2021-12-28 08:31 | Progress Note ---
Subjective Principal diagnosis: abnormal liver enzymes Interval history: Assessment and plan #Severe rhabdomyolysis: from renal standpoint patient creatinine is currently 0.5 electrolytes stable, #Mild hypocalcemia consider supplementation, 500 mg once a day, Check ionized calcium #Rhabdomyolysis appears to be improving gradually current CPK is 8066 on December 24 it was [phone], peaked at more than 90,000 Resulting from left leg compartment syndrome Continue with hydration Patient will need to make an appointment follow-up in the office, contact information was provided If there are any further renal questions please feel free to reach us We'll continue to follow and make recommendation for renal standpoint. Progress note by: Sea Hunter MD [address] [place] [id number] Tele [phone] [place] Patient was seen today for follow-up of multiple renal related issues No complaints of any chest pain pressure or shortness of breath Interdisciplinary notes that also reviewed Events of 24 hours vitals labs intake output medications were reviewed Past medical history: Reviewed Family history: Reviewed Social history: Reviewed Allergies: Reviewed Physical examination: Vitals: Reviewed HEENT: No pallor or icterus oral mucosa moist Neck: Supple no JVD no thyromegaly Chest: Bilateral clear to auscultation anteriorly Heart: Regular rate and rhythm S1-S2 heard no S3-S4 Abdomen: Soft nontender no voluntary guarding rigidity rebound Extremity: Dry skin less than 1+ peripheral edema Psychiatric: No evidence of agitation and aggression noted Dermatology: No petechial rashes Labs and x-rays: Reviewed from today Objective - Vital Signs Vital signs: Vital Signs - 12hr 12/27/21 12/27/21 12/27/21 21:41 21:45 22:00 Temperature Pulse Rate Pulse Rate [ 92 H Anterior Bilateral Throughout] Respiratory Rate Respiratory 19 Rate [Anterior Bilateral Throughout] Blood Pressure O2 Sat by Pulse 97 96 Oximetry 12/28/21 12/28/21 12/28/21 00:05 06:37 07:47 Temperature 98.6 F 98.0 F Pulse Rate 93 H 83 Pulse Rate [ Anterior Bilateral Throughout] Respiratory 20 18 Rate Respiratory Rate [Anterior Bilateral Throughout] Blood Pressure 127/86 153/100 150/100 O2 Sat by Pulse 95 99 Oximetry 12/28/21 07:49 Temperature Pulse Rate Pulse Rate [ Anterior Bilateral Throughout] Respiratory Rate Respiratory Rate [Anterior Bilateral Throughout] Blood Pressure O2 Sat by Pulse 97 Oximetry - Lab 12/27/21 05:08 12/27/21 05:08 Most recent lab results Calcium 8.0 mg/dL (8.4-10.2) L 12/27/21 05:08 Phosphorus 2.80 mg/dL (2.5-4.5) 12/24/21 05:17 Magnesium 2.20 mg/dL (1.7-2.3) 12/24/21 05:17 Medications & Allergies - Medications Allergies/Adverse Reactions: Allergies ceftriaxone [From Rocephin] Allergy (Severe, Verified 12/23/21 10:23) Unknown SEVERE RASH MOTTLING OF THE 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 [employer] Penicillins Allergy (Severe, Verified 12/23/21 10:23) Unknown SEVERE RASH MOTTLING OF THE 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 [employer] Home Medications: Home Medications Medication Instructions Recorded Confirmed Last Taken Type No Known Home Medications [No 12/21/21 12/21/21 Unknown History Reported Home Medications] Active Medications: Generic Name Dose Route Start Last Admin Trade Name Freq PRN Reason Stop Dose Admin Albuterol 2.5 mg 12/21/21 06:15 Albuterol 2.5 Mg/3 Ml Nebu IH Q3HRT PRN Shortness Of Breath Albuterol/Ipratropium 1 ampul 12/22/21 08:00 12/27/21 21:41 Ipratropium/Albuterol Sulfate 3 Ml Ampul.Neb IH 1 ampul BIDRT VLADIMIR Administration Diphenhydramine HCl 25 mg 12/21/21 06:24 12/26/21 18:49 Diphenhydramine 50 Mg/Ml Vial IV 25 mg Q6H PRN Administration Skin Irritation Docusate Sodium 100 mg 12/23/21 22:00 12/27/21 22:23 Docusate Sodium 100 Mg Cap PO 100 mg BID VLADIMIR Administration Famotidine 20 mg 12/26/21 10:00 12/27/21 22:23 Famotidine 20 Mg Tab PO 20 mg BID VLADIMIR Administration Gabapentin 100 mg 12/23/21 22:30 12/28/21 05:31 Gabapentin 100 Mg Cap PO 12/30/21 22:29 100 mg Q8HR VLADIMIR Administration Gabapentin 100 mg 12/31/21 10:00 Gabapentin 100 Mg Cap PO 01/05/22 09:59 BID VLADIMIR Gabapentin 300 mg 12/31/21 18:00 Gabapentin 300 Mg Cap PO 01/05/22 17:59 QPM VLADIMIR Heparin Sodium (Porcine) 5,000 unit 12/21/21 10:00 12/27/21 22:23 Heparin 5,000 Unit/1 Ml Vial SUB-Q 5,000 unit Q12HR VLADIMIR Administration Hydralazine HCl 10 mg 12/22/21 18:31 12/22/21 18:50 Hydralazine 20 Mg/1 Ml Inj IV 10 mg Q3HR PRN Administration Hypertension Hydromorphone HCl 0.5 mg 12/21/21 06:15 12/28/21 03:05 Hydromorphone 1 Mg/1 Ml Inj IV 0.5 mg Q3H PRN Administration Pain , Severe (7-10) Sodium Chloride 1,000 mls @ 200 mls/hr 12/22/21 18:30 12/28/21 05:32 Nacl 0.9% 1000 Ml IV 200 mls/hr DIRECT VLADIMIR Administration Morphine Sulfate 2 mg 12/21/21 06:15 12/28/21 07:41 Morphine 2 Mg/1 Ml Inj IV 2 mg Q4H PRN Administration Pain, Moderate (4-6) Ondansetron HCl 4 mg 12/21/21 06:15 Ondansetron 4 Mg/2 Ml Inj IV Q8H PRN Nausea And Vomiting Sodium Chloride 10 ml 12/21/21 10:00 12/27/21 22:23 Sodium Chloride 0.9% 10 Ml Flush Syringe IV 10 ml BID VLADIMIR Administration Sodium Chloride 10 ml 12/21/21 06:15 Sodium Chloride 0.9% 10 Ml Flush Syringe IV PRN PRN LINE FLUSH Valsartan 160 mg 12/22/21 22:00 12/28/21 07:47 Valsartan 160mg Tab PO 160 mg DAILY VLADIMIR Administration
[2021-12-28] MEDS: IPRATROPIUM/ALBUTEROL SULFATE 3 ML AMPUL.NEB IH SCH ×2 (08:34→20:02)
[2021-12-28] MEDS: DOCUSATE SODIUM 100 MG CAP PO SCH ×2 (10:24→21:44)
--- NOTE | 2021-12-28 10:24 | Progress Note ---
Assessment and Plan Assessment and plan: This is a 36 year old transgendered female undergoing gender transformation with silicone injection to buttocks ([place] 2016) and breast implants, heavy drinker on the weekends (bottle of vodka) who presented to [facility] on 12/21 because of adverse drug reaction after reportedly self administration of rocephin and PCN for sore throat. Patient reportedly collapsed while checking in to the emergency department, has complains of severe 10 out of 10 pain in left thigh and has noticeable mottling of skin in thigh and left lower abdomen. Patient underwent a CT of the left leg which showed possible cellulitis with no drainable fluid collection and was started on empiric antibiotics. Patient admitted to the hospital service with diagnosis of acute liver failure, rhabdomyolysis, s/p 4 compartment fasciotomy to left lower extremity Acute liver failure -GI consulted, appreciate recommendations -Per GI: Suspect due to rhabdomyolysis given elevated creatinine kinase levels -If ALT continues to rise recommend MRCP -Abdominal ultrasound showed mild diffuse biliary dilation, obstruction to lesion of the distal common bile duct cannot be excluded consider MRCP, no evidence of gallstones within the gallbladder -PPI -Regular diet -BR: colace -Trend LFTs Compartment syndrome to LLE -Vascular surgery consulted, appreciate recommendations -s/p self admin of IM abx to midthigh -c/o pain, decreased sensation, pulses were dopplarable, paralysis, mottled skin -s/p 4 compartment tracheotomy on 12/21 with vascular surgery -Bilateral lower extremity Doppler ultrasound showed no DVT -Left lower extremity CT with contrast showed appearance of posterior soft tissue complex cellulitis with small subcutaneous lymph nodes, no drainable fluid collections present, contusion could have similar appearance -Bilateral lower extremity arterial duplex showed no significant lower extremity peripheral artery disease -Normal ABIs Peripheral neuropathy -Avoid delirium -Reorientation as needed -Maintain sleep-wake cycle -As needed analgesia -Neurology consulted, appreciate recommendations -Gabapentin HTN -Blood pressure monitoring per protocol -Valsartan -PRN hydralazine Rhabdomyolysis acute kidney injury with vasomotor nephropathy now resolved -Nephrology consulted, appreciate recommendations -Strict intake and output -Renally dose medications -Avoid nephrotoxic medications -MIVF -Sodium bicarb -Trend BMP, CK Hospital course to date: 12/21: Venous ultrasound shows no DVT, Vascular surgery consulted who performed a fasciotomy and plan to transfer patient to [facility] post intervention. Neurology consulted 12/22: Transfer to ICU, GI and neurology consulted. 12/23: Patient will be transferred back to the floor from ICU. Her liver enzymes and creatinine are trending down. Will be started on gabapentin per neurology recommendations and antibiotics discontinued. 12/24: Continue supportive care. CPK slowly improving. Vascular plans for closure of fasciotomy early next week. PT OT evaluation and treatment closure done. Continue wound management. No evidence of withdrawal noted at this time. Continue to monitor LFTs which are also slightly improving. Plan discussed in detail with the patient who verbalized understanding 12/25: Patient seen and examined clinically stable continues to show some improvement. Closure of fasciotomy planned for tomorrow. Renal function is improving. CK ordered and pending 12/26: Patient seen and examined, wbc mildly elevated likely secondary to steroids, will change to po for two additional days and stop, benefit probably already achieved, continue wound dressing, sensory function improved, awaiting wound vac and closure. Patient advised on clinically progress. 12/27: Patient seen and examined awaiting her vascular surgery for closure of fasciotomy. CK is decreasing less than 9000 today. We will continue aggressive IV fluids until we have the resolution below 5000. LFTs on the downward trend also. Leukocytosis appears to have peaked steroids was changed to oral for 2 additional days today is 1 of 2.. Plan of care discussed in detail with the patient who verbalized understanding. 12/28: Left lower extremity compartment syndrome status post fasciotomies. Cau se is still unclear and may represent some allergic reaction. Motor function is unchanged from original exam. Sensory function has improved with full sensation of the foot.vascular surgery to place wound vacs on the leg today. CK improved to the 8000 range today History Interval history: No new issues overnight Hospitalist Physical - Constitutional Vitals: Temp Pulse Resp BP Pulse Ox 98.0 F 88 16 150/100 100 12/28/21 06:37 12/28/21 08:38 12/28/21 08:38 12/28/21 07:47 12/28/21 08:36 General appearance: Present: no acute distress - EENT Eyes: Present: PERRL, EOM intact ENT: hearing intact, clear oral mucosa, dentition normal - Neck Neck: Present: supple, normal ROM - Respiratory Respiratory effort: normal Respiratory: bilateral: CTA - Cardiovascular Rhythm: regular Heart Sounds: Present: S1 & S2. Absent: gallop, rub - Extremities Extremities: no ischemia, No edema, Full ROM - Abdominal General gastrointestinal: soft, non-tender, non-distended, normal bowel sounds - Integumentary Integumentary: Present: clear, warm, dry - Neurologic Neurologic: CNII-XII intact, moves all extremities Results - Labs CBC & Chem 7: 12/27/21 05:08 12/27/21 05:08 Labs: Laboratory Last Values WBC 18.3 K/mm3 (4.5-11.0) H 12/27/21 05:08 RBC 3.78 M/mm3 (3.65-5.03) 12/27/21 05:08 Hgb 12.4 gm/dl (11.8-15.2) 12/27/21 05:08 Hct 37.5 % (35.5-45.6) 12/27/21 05:08 MCV 99 fl (84-94) H 12/27/21 05:08 MCH 33 pg (28-32) H 12/27/21 05:08 MCHC 33 % (32-34) 12/27/21 05:08 RDW 13.0 % (13.2-15.2) L 12/27/21 05:08 Plt Count 284 K/mm3 (140-440) 12/27/21 05:08 Lymph % (Auto) 7.8 % (13.4-35.0) L 12/23/21 04:49 [place] % (Auto) 10.6 % (0.0-7.3) H 12/23/21 04:49 Eos % (Auto) 0.0 % (0.0-4.3) 12/23/21 04:49 Baso % (Auto) 0.0 % (0.0-1.8) 12/23/21 04:49 Lymph # (Auto) 1.1 K/mm3 (1.2-5.4) L 12/23/21 04:49 [place] # (Auto) 1.5 K/mm3 (0.0-0.8) H 12/23/21 04:49 Eos # (Auto) 0.0 K/mm3 (0.0-0.4) 12/23/21 04:49 Baso # (Auto) 0.0 K/mm3 (0.0-0.1) 12/23/21 04:49 Add Manual Diff Complete 12/20/21 23:35 Total Counted 100 12/20/21 23:35 Seg Neutrophils % 81.6 % (40.0-70.0) H 12/23/21 04:49 Seg Neuts % (Manual) 52.0 % (40.0-70.0) 12/20/21 23:35 Band Neutrophils % 0 % 12/20/21 23:35 Lymphocytes % (Manual) 41.0 % (13.4-35.0) H 12/20/21 23:35 Reactive Lymphs % (Man) 0 % 12/20/21 23:35 Monocytes % (Manual) 7.0 % (0.0-7.3) 12/20/21 23:35 Eosinophils % (Manual) 0 % (0.0-4.3) 12/20/21 23:35 Basophils % (Manual) 0 % (0.0-1.8) 12/20/21 23:35 Metamyelocytes % 0 % 12/20/21 23:35 Myelocytes % 0 % 12/20/21 23:35 Promyelocytes % 0 % 12/20/21 23:35 Blast Cells % 0 % 12/20/21 23:35 Nucleated RBC % Not Reportable 12/20/21 23:35 Seg Neutrophils # 11.6 K/mm3 (1.8-7.7) H 12/23/21 04:49 Seg Neutrophils # Man 7.3 K/mm3 (1.8-7.7) 12/20/21 23:35 Band Neutrophils # 0.0 K/mm3 12/20/21 23:35 Lymphocytes # (Manual) 5.7 K/mm3 (1.2-5.4) H 12/20/21 23:35 Abs React Lymphs (Man) 0.0 K/mm3 12/20/21 23:35 Monocytes # (Manual) 1.0 K/mm3 (0.0-0.8) H 12/20/21 23:35 Eosinophils # (Manual) 0.0 K/mm3 (0.0-0.4) 12/20/21 23:35 Basophils # (Manual) 0.0 K/mm3 (0.0-0.1) 12/20/21 23:35 Metamyelocytes # 0.0 K/mm3 05/02/22 23:35 Myelocytes # 0.0 K/mm3 12/20/21 23:35 Promyelocytes # 0.0 K/mm3 12/20/21 23:35 Blast Cells # 0.0 K/mm3 12/20/21 23:35 WBC Morphology Not Reportable 12/20/21 23:35 Hypersegmented Neuts Not Reportable 12/20/21 23:35 Hyposegmented Neuts Not Reportable 12/20/21 23:35 Hypogranular Neuts Not Reportable 12/20/21 23:35 Smudge Cells Not Reportable 12/20/21 23:35 Toxic Granulation Not Reportable 12/20/21 23:35 Toxic Vacuolation Not Reportable 12/20/21 23:35 Dohle Bodies Not Reportable 12/20/21 23:35 Pelger-Huet Anomaly Not Reportable 12/20/21 23:35 [place] Rods Not Reportable 12/20/21 23:35 Platelet Estimate Consistent w auto 12/20/21 23:35 Clumped Platelets Not Reportable 12/20/21 23:35 Plt Clumps, EDTA Not Reportable 12/20/21 23:35 Large Platelets Not Reportable 12/20/21 23:35 Giant Platelets Not Reportable 12/20/21 23:35 Platelet Satelliting Not Reportable 12/20/21 23:35 Plt Morphology Comment Not Reportable 12/20/21 23:35 RBC Morphology Normal 12/20/21 23:35 Dimorphic RBCs Not Reportable 12/20/21 23:35 Polychromasia Not Reportable 12/20/21 23:35 Hypochromasia Not Reportable 12/20/21 23:35 Poikilocytosis Not Reportable 12/20/21 23:35 Anisocytosis Not Reportable 12/20/21 23:35 Microcytosis Not Reportable 12/20/21 23:35 Macrocytosis Not Reportable 12/20/21 23:35 Spherocytes Not Reportable 12/20/21 23:35 Pappenheimer Bodies Not Reportable 12/20/21 23:35 Sickle Cells Not Reportable 12/20/21 23:35 Target Cells Not Reportable 12/20/21 23:35 Tear Drop Cells Not Reportable 12/20/21 23:35 Ovalocytes Not Reportable 12/20/21 23:35 Helmet Cells Not Reportable 12/20/21 23:35 [place] Bodies Not Reportable 12/20/21 23:35 [place] Rings Not Reportable 12/20/21 23:35 [place] Cells Not Reportable 12/20/21 23:35 Bite Cells Not Reportable 12/20/21 23:35 Crenated Cell Not Reportable 12/20/21 23:35 Elliptocytes Not Reportable 12/20/21 23:35 Acanthocytes (Spur) Not Reportable 12/20/21 23:35 Rouleaux Not Reportable 12/20/21 23:35 Hemoglobin C Crystals Not Reportable 12/20/21 23:35 Schistocytes Not Reportable 12/20/21 23:35 Malaria parasites Not Reportable 12/20/21 23:35 [place] Bodies Not Reportable 12/20/21 23:35 Hem Pathologist Commnt No 12/20/21 23:35 PT 13.4 Sec. (12.2-14.9) 12/21/21 13:30 INR 0.92 (0.87-1.13) 12/21/21 13:30 APTT 25.8 Sec. (24.2-36.6) 12/21/21 13:30 Sodium 138 mmol/L (137-145) 12/27/21 05:08 Potassium 3.8 mmol/L (3.6-5.0) 12/27/21 05:08 Chloride 101.6 mmol/L (98-107) 12/27/21 05:08 Carbon Dioxide 26 mmol/L (22-30) 12/27/21 05:08 Anion Gap 14 mmol/L 12/27/21 05:08 BUN 12 mg/dL (9-20) 12/27/21 05:08 Creatinine 0.5 mg/dL (0.8-1.3) L 12/27/21 05:08 Estimated GFR > 60 ml/min 12/27/21 05:08 BUN/Creatinine Ratio 24 % 12/27/21 05:08 Glucose 98 mg/dL (75-100) 12/27/21 05:08 Lactic Acid 1.40 mmol/L (0.7-2.0) 12/21/21 13:30 Calcium 8.0 mg/dL (8.4-10.2) L 12/27/21 05:08 Phosphorus 2.80 mg/dL (2.5-4.5) 12/24/21 05:17 Magnesium 2.20 mg/dL (1.7-2.3) 12/24/21 05:17 Total Bilirubin 0.30 mg/dL (0.1-1.2) 12/27/21 05:08 Direct Bilirubin < 0.2 mg/dL (0-0.2) 12/21/21 22:47 AST 177 units/L (5-40) H 12/27/21 05:08 ALT 321 units/L (7-56) H 12/27/21 05:08 Alkaline Phosphatase 68 units/L (35-129) 12/27/21 05:08 Ammonia 37.0 umol/L (25-60) 12/23/21 04:49 Total Creatine Kinase 8066 units/L (55-170) H 12/27/21 05:08 Total Protein 4.8 g/dL (6.3-8.2) L 12/27/21 05:08 Albumin 2.9 g/dL (3.9-5) L 12/27/21 05:08 Albumin/Globulin Ratio 1.5 % 12/27/21 05:08 Amylase 25 units/L (27-131) L 12/23/21 04:49 Lipase 10 units/L (13-60) L 12/23/21 04:49 Coronavirus (PCR) Negative (Negative) 12/22/21 11:40 Hep Bs Antigen Non-reactive (Negative) 12/21/21 13:30 Hep B Core IgM Ab Non-reactive (NonReactive) 12/21/21 13:30 Hepatitis C Antibody Non-reactive (NonReactive) 12/21/21 13:30 HIV 1&2 Antibody Rapid Non react (Non React) 12/22/21 16:42 HIV P24 Antigen Non react (Non React) 12/22/21 16:42 Kaur/IV: Voiding Method Urinal Active Medications - Current Medications Current Medications: Generic Name Dose Route Start Last Admin Trade Name Freq PRN Reason Stop Dose Admin Albuterol 2.5 mg 12/21/21 06:15 Albuterol 2.5 Mg/3 Ml Nebu IH Q3HRT PRN Shortness Of Breath Albuterol/Ipratropium 1 ampul 12/22/21 08:00 12/28/21 08:34 Ipratropium/Albuterol Sulfate 3 Ml Ampul.Neb IH 1 ampul BIDRT VLADIMIR Administration Diphenhydramine HCl 25 mg 12/21/21 06:24 12/26/21 18:49 Diphenhydramine 50 Mg/Ml Vial IV 25 mg Q6H PRN Administration Skin Irritation Docusate Sodium 100 mg 12/23/21 22:00 12/27/21 22:23 Docusate Sodium 100 Mg Cap PO 100 mg BID VLADIMIR Administration Famotidine 20 mg 12/26/21 10:00 12/27/21 22:23 Famotidine 20 Mg Tab PO 20 mg BID VLADIMIR Administration Gabapentin 100 mg 12/23/21 22:30 12/28/21 05:31 Gabapentin 100 Mg Cap PO 12/30/21 22:29 100 mg Q8HR VLADIMIR Administration Gabapentin 100 mg 12/31/21 10:00 Gabapentin 100 Mg Cap PO 01/05/22 09:59 BID VLADIMIR Gabapentin 300 mg 12/31/21 18:00 Gabapentin 300 Mg Cap PO 01/05/22 17:59 QPM VLADIMIR Heparin Sodium (Porcine) 5,000 unit 12/21/21 10:00 12/27/21 22:23 Heparin 5,000 Unit/1 Ml Vial SUB-Q 5,000 unit Q12HR VLADIMIR Administration Hydralazine HCl 10 mg 12/22/21 18:31 12/22/21 18:50 Hydralazine 20 Mg/1 Ml Inj IV 10 mg Q3HR PRN Administration Hypertension Hydromorphone HCl 0.5 mg 12/21/21 06:15 12/28/21 03:05 Hydromorphone 1 Mg/1 Ml Inj IV 0.5 mg Q3H PRN Administration Pain , Severe (7-10) Sodium Chloride 1,000 mls @ 200 mls/hr 12/22/21 18:30 12/28/21 05:32 Nacl 0.9% 1000 Ml IV 200 mls/hr DIRECT VLADIMIR Administration Morphine Sulfate 2 mg 12/21/21 06:15 12/28/21 07:41 Morphine 2 Mg/1 Ml Inj IV 2 mg Q4H PRN Administration Pain, Moderate (4-6) Ondansetron HCl 4 mg 12/21/21 06:15 Ondansetron 4 Mg/2 Ml Inj IV Q8H PRN Nausea And Vomiting Sodium Chloride 10 ml 12/21/21 10:00 12/27/21 22:23 Sodium Chloride 0.9% 10 Ml Flush Syringe IV 10 ml BID VLADIMIR Administration Sodium Chloride 10 ml 12/21/21 06:15 Sodium Chloride 0.9% 10 Ml Flush Syringe IV PRN PRN LINE FLUSH Valsartan 160 mg 12/22/21 22:00 12/28/21 07:47 Valsartan 160mg Tab PO 160 mg DAILY VLADIMIR Administration
[2021-12-28] MEDS: HEPARIN 5,000 UNIT/1 ML VIAL SUB-Q SCH ×2 (10:25→21:44)
[2021-12-28] MEDS: FAMOTIDINE 20 MG TAB PO SCH ×2 (10:31→21:44)
[2021-12-28 10:50] LABS: Hematocrit 38.6 % (35.5-45.6); Hemoglobin 13.3 gm/dl (11.8-15.2); Mean Corpuscular HGB Conc 34 % (32-34); Mean Corpuscular Volume 97 fl (84-94); Platelet Count 342 K/mm3 (140-440); Red Blood Count 3.97 M/mm3 (3.65-5.03); Red Cell Distribution Width 13.3 % (13.2-15.2)
[2021-12-28 11:11] LABS: Alanine Aminotransferase 247 units/L (7-56); Albumin 2.9 g/dL (3.9-5); Blood Urea Nitrogen 9 mg/dL (9-20); Hemolysis Index 5
[2021-12-28 11:18] LABS: BUN/Creatinine Ratio 13
[2021-12-28] MEDS ORDERED: MIDAZOLAM 2 MG/2 ML INJ ONE (17:35)
[2021-12-28] MEDS ORDERED: LIDOCAINE MPF (2%) 20 MG/1 ML VIAL 5 ML ONE (17:35)
[2021-12-28] MEDS ORDERED: propofoL 200 MG/20 ML VIAL IV ONE ×2 (17:36→18:08)
[2021-12-28] MEDS ORDERED: HYDROmorphone 1 MG/1 ML INJ IV PRN (18:18)
--- NOTE | 2021-12-28 18:18 | Anesthesia Day of Surgery ---
Anesthesia Day of Surgery - Day of Surgery Patient Examined: Yes Patient H&P Reviewed: Yes Patient is NPO: Yes
[2021-12-28] MEDS ORDERED: PHENYLEPHRINE/NS 1,000 MCG/10 ML SYRINGE (OR USE) IV ONE (18:46)
[2021-12-28] MEDS ORDERED: HYDROmorphone 1 MG/1 ML INJ ONE (18:54)
[2021-12-28] MEDS ORDERED: ONDANSETRON 4 MG/2 ML INJ ONE (18:57)
--- NOTE | 2021-12-28 19:00 | Operative Report ---
Operative Report Operative Report: Date of Procedure: 12/28/2021 Pre-operative Diagnosis: Left Leg 4 Compartment Fasciotomy Post-operative Diagnosis: Same Procedure(s): 1. Excisional Debridement of Muscle and Soft Tissue from Left Leg Wounds 2. Wound VAC Placement Left Leg Fasciotomy Incisions (Medial Wound Measures 28 x 8 x 1 cm) (Lateral Wound Measures 30 x 9 x 1 cm) Surgeon: Lenard Kimble M.D. Health Service Worker: None Anesthesia: MAC EBL: Minimal Counts: Correct Complications: None Condition: Stable Findings: Moderate amount of superficial necrotic muscle in the anterior lateral compartments with minimal amount of superficial necrotic muscle in the posterior compartment. Specimen: Left leg muscle and soft tissue was sent to pathology and for cultures. Indication: The patient is a 36-year-old transgender female who presented after an injection of a substance in her left thigh that resulted in left leg compartment syndrome. She underwent a 4 compartment fasciotomy and has significant edema of the muscle preventing closure of the skin. She is in need of a washout with wound VAC placement. She was given the risk, benefits, and alternative procedures and consented to the procedure. Description of Procedure: The patient was brought to the operating room and laid in supine position. After she was adequately sedated her left leg was prepped and draped in normal sterile fashion. Evaluation of the muscle revealed several areas of necrotic muscle in the posterior compartment. This was sharply debrided with curved Mayos and found to be very superficial. Once the muscle was debrided cautery was used to achieve hemostasis. Evaluation of the anterior lateral compartment revealed a moderate amount of necrotic muscle which was debrided sharply with curved Mayos and found to be fairly superficial. Cautery was used to achieve hemostasis in these compartments as well. Of note none of the muscle and in the other compartments reacted to stimulation with cautery. The wounds were copiously irrigated and then a wound VAC was placed with an adequate seal. A Kerlix roll was then placed around the wounds. The patient tolerated the procedure well. All sponge, needle, and instrument counts were correct. The patient was taken to the recovery area in stable condition.
--- NOTE | 2021-12-28 20:12 | Post Anesthesia Evaluation ---
- Post Anesthesia Evaluation Patient Participated: Yes Airway Patent: Yes Stable Respiratory Function: Yes Nausea/Vomiting: No Temp > 96.8F: Yes Pain Manageable: Yes Adequeate Hydration: Yes Anesthesia Complications: No
[2021-12-29] MEDS: MORPHINE 2 MG/1 ML INJ IV PRN ×3 (05:10→21:18)
[2021-12-29] MEDS: GABAPENTIN 100 MG CAP PO SCH ×3 (05:23→21:05)
[2021-12-29] MEDS: HYDROmorphone 1 MG/1 ML INJ IV PRN (06:19)
[2021-12-29] MEDS: IPRATROPIUM/ALBUTEROL SULFATE 3 ML AMPUL.NEB IH SCH ×2 (08:59→19:50)
--- NOTE | 2021-12-29 09:08 | Progress Note ---
Subjective Principal diagnosis: abnormal liver enzymes Interval history: Assessment and plan Patient renal function remained stable at this point, patiently hydrate and monitor renal function and electrolyte S/p excisional debridement of muscle and soft tissue of the left leg wound s/p wound VAC placement,, for compartment syndrome Continue with supportive care periodic monitoring of labs We'll continue to follow and make recommendation for renal standpoint. Progress note by: Sea Hunter MD [address] [place] [id number] Tele [phone] [employer] Patient was seen today for follow-up of multiple renal related issues S/p surgery and wound VAC placement Events of 24 hours vitals labs intake output medications were reviewed Past medical history: Reviewed Family history: Reviewed Social history: Reviewed Allergies: Reviewed Physical examination: Vitals: Reviewed HEENT: No pallor or icterus oral mucosa moist Neck: Supple no JVD no thyromegaly Chest: Bilateral clear to auscultation anteriorly Heart: Regular rate and rhythm S1-S2 heard no S3-S4 Abdomen: Soft nontender no voluntary guarding rigidity rebound Extremity: Dry skin less than 1+ peripheral edema dressings in place on the leg Psychiatric: No evidence of agitation and aggression noted Dermatology: No petechial rashes Labs and x-rays: Reviewed from today Objective - Vital Signs Vital signs: Vital Signs - 12hr 12/28/21 12/28/21 12/29/21 21:52 22:00 05:17 Temperature 98.6 F 98.6 F Pulse Rate 99 H 95 H Respiratory 18 18 Rate Blood Pressure 116/67 103/60 O2 Sat by Pulse 99 97 96 Oximetry - Lab 12/28/21 09:56 12/28/21 09:56 Most recent lab results Calcium 8.0 mg/dL (8.4-10.2) L 12/28/21 09:56 Phosphorus 2.80 mg/dL (2.5-4.5) 12/24/21 05:17 Magnesium 2.20 mg/dL (1.7-2.3) 12/24/21 05:17 Medications & Allergies - Medications Allergies/Adverse Reactions: Allergies ceftriaxone [From Rocephin] Allergy (Severe, Verified 12/23/21 10:23) Unknown SEVERE RASH [employer]TLING OF [employer] [facility] [employer] Penicillins Allergy (Severe, Verified 12/23/21 10:23) Unknown SEV[employer] [facility] [employer] Home Medications: Home Medications Medication Instructions Recorded Confirmed Last Taken Type No Known Home Medications [No 12/21/21 12/21/21 Unknown History Reported Home Medications] Active Medications: Generic Name Dose Route Start Last Admin Trade Name Freq PRN Reason Stop Dose Admin Albuterol 2.5 mg 12/21/21 06:15 Albuterol 2.5 Mg/3 Ml Nebu IH Q3HRT PRN Shortness Of Breath Albuterol/Ipratropium 1 ampul 12/22/21 08:00 12/29/21 08:59 Ipratropium/Albuterol Sulfate 3 Ml Ampul.Neb IH 1 ampul BIDRT VLADIMIR Administration Diphenhydramine HCl 25 mg 12/21/21 06:24 12/26/21 18:49 Diphenhydramine 50 Mg/Ml Vial IV 25 mg Q6H PRN Administration Skin Irritation Docusate Sodium 100 mg 12/23/21 22:00 12/28/21 21:44 Docusate Sodium 100 Mg Cap PO 100 mg BID VLADIMIR Administration Famotidine 20 mg 12/26/21 10:00 12/28/21 21:44 Famotidine 20 Mg Tab PO 20 mg BID VLADIMIR Administration Gabapentin 100 mg 12/23/21 22:30 12/29/21 05:23 Gabapentin 100 Mg Cap PO 12/30/21 22:29 100 mg Q8HR VLADIMIR Administration Gabapentin 100 mg 12/31/21 10:00 Gabapentin 100 Mg Cap PO 01/05/22 09:59 BID VLADIMIR Gabapentin 300 mg 12/31/21 18:00 Gabapentin 300 Mg Cap PO 01/05/22 17:59 QPM VLADIMIR Heparin Sodium (Porcine) 5,000 unit 12/21/21 10:00 12/28/21 21:44 Heparin 5,000 Unit/1 Ml Vial SUB-Q 5,000 unit Q12HR VLADIMIR Administration Hydralazine HCl 10 mg 12/22/21 18:31 12/22/21 18:50 Hydralazine 20 Mg/1 Ml Inj IV 10 mg Q3HR PRN Administration Hypertension Hydromorphone HCl 0.5 mg 12/21/21 06:15 12/29/21 06:19 Hydromorphone 1 Mg/1 Ml Inj IV 0.5 mg Q3H PRN Administration Pain , Severe (7-10) Hydromorphone HCl 0.5 mg 12/28/21 18:18 Hydromorphone 1 Mg/1 Ml Inj IV 12/29/21 18:17 Q10MIN PRN Pain , Severe (7-10) Sodium Chloride 1,000 mls @ 200 mls/hr 12/22/21 18:30 12/28/21 23:35 Nacl 0.9% 1000 Ml IV 200 mls/hr DIRECT VLADIMIR Administration Morphine Sulfate 2 mg 12/21/21 06:15 12/29/21 05:10 Morphine 2 Mg/1 Ml Inj IV 2 mg Q4H PRN Administration Pain, Moderate (4-6) Ondansetron HCl 4 mg 12/21/21 06:15 Ondansetron 4 Mg/2 Ml Inj IV Q8H PRN Nausea And Vomiting Sodium Chloride 10 ml 12/21/21 10:00 12/28/21 21:44 Sodium Chloride 0.9% 10 Ml Flush Syringe IV 10 ml BID VLADIMIR Administration Sodium Chloride 10 ml 12/21/21 06:15 Sodium Chloride 0.9% 10 Ml Flush Syringe IV PRN PRN LINE FLUSH Valsartan 160 mg 12/22/21 22:00 12/28/21 17:22 Valsartan 160mg Tab PO Not Given DAILY VLADIMIR
[2021-12-29] MEDS: VALSARTAN 160MG TAB PO SCH (09:35)
[2021-12-29] MEDS: FAMOTIDINE 20 MG TAB PO SCH ×2 (09:35→21:05)
[2021-12-29] MEDS: DOCUSATE SODIUM 100 MG CAP PO SCH ×2 (09:35→21:05)
[2021-12-29] MEDS: HEPARIN 5,000 UNIT/1 ML VIAL SUB-Q SCH ×2 (09:36→21:04)
--- NOTE | 2021-12-29 10:27 | Progress Note ---
Assessment and Plan Assessment and plan: This is a 36 year old transgendered female undergoing gender transformation with silicone injection to buttocks ([place] 2016) and breast implants, heavy drinker on the weekends (bottle of vodka) who presented to [facility] on 12/21 because of adverse drug reaction after reportedly self administration of rocephin and PCN for sore throat. Patient reportedly collapsed while checking in to the emergency department, has complains of severe 10 out of 10 pain in left thigh and has noticeable mottling of skin in thigh and left lower abdomen. Patient underwent a CT of the left leg which showed possible cellulitis with no drainable fluid collection and was started on empiric antibiotics. Patient admitted to the hospital service with diagnosis of acute liver failure, rhabdomyolysis, s/p 4 compartment fasciotomy to left lower extremity Acute liver failure -GI consulted, appreciate recommendations -Per GI: Suspect due to rhabdomyolysis given elevated creatinine kinase levels -If ALT continues to rise recommend MRCP -Abdominal ultrasound showed mild diffuse biliary dilation, obstruction to lesion of the distal common bile duct cannot be excluded consider MRCP, no evidence of gallstones within the gallbladder -PPI -Regular diet -BR: colace -Trend LFTs Compartment syndrome to LLE -Vascular surgery consulted, appreciate recommendations -s/p self admin of IM abx to midthigh -c/o pain, decreased sensation, pulses were dopplarable, paralysis, mottled skin -s/p 4 compartment tracheotomy on 12/21 with vascular surgery -Bilateral lower extremity Doppler ultrasound showed no DVT -Left lower extremity CT with contrast showed appearance of posterior soft tissue complex cellulitis with small subcutaneous lymph nodes, no drainable fluid collections present, contusion could have similar appearance -Bilateral lower extremity arterial duplex showed no significant lower extremity peripheral artery disease -Normal ABIs Peripheral neuropathy -Avoid delirium -Reorientation as needed -Maintain sleep-wake cycle -As needed analgesia -Neurology consulted, appreciate recommendations -Gabapentin HTN -Blood pressure monitoring per protocol -Valsartan -PRN hydralazine Rhabdomyolysis acute kidney injury with vasomotor nephropathy now resolved -Nephrology consulted, appreciate recommendations -Strict intake and output -Renally dose medications -Avoid nephrotoxic medications -MIVF -Sodium bicarb -Trend BMP, CK Hospital course to date: 12/21: Venous ultrasound shows no DVT, Vascular surgery consulted who performed a fasciotomy and plan to transfer patient to [facility] post intervention. Neurology consulted 12/22: Transfer to ICU, GI and neurology consulted. 12/23: Patient will be transferred back to the floor from ICU. Her liver enzymes and creatinine are trending down. Will be started on gabapentin per neurology recommendations and antibiotics discontinued. 12/24: Continue supportive care. CPK slowly improving. Vascular plans for closure of fasciotomy early next week. PT OT evaluation and treatment closure done. Continue wound management. No evidence of withdrawal noted at this time. Continue to monitor LFTs which are also slightly improving. Plan discussed in detail with the patient who verbalized understanding 12/25: Patient seen and examined clinically stable continues to show some improvement. Closure of fasciotomy planned for tomorrow. Renal function is improving. CK ordered and pending 12/26: Patient seen and examined, wbc mildly elevated likely secondary to steroids, will change to po for two additional days and stop, benefit probably already achieved, continue wound dressing, sensory function improved, awaiting wound vac and closure. Patient advised on clinically progress. 12/27: Patient seen and examined awaiting her vascular surgery for closure of fasciotomy. CK is decreasing less than 9000 today. We will continue aggressive IV fluids until we have the resolution below 5000. LFTs on the downward trend also. Leukocytosis appears to have peaked steroids was changed to oral for 2 additional days today is 1 of 2.. Plan of care discussed in detail with the patient who verbalized understanding. 12/28: Left lower extremity compartment syndrome status post fasciotomies. Cau se is still unclear and may represent some allergic reaction. Motor function is unchanged from original exam. Sensory function has improved with full sensation of the foot.vascular surgery to place wound vacs on the leg today. CK improved to the 8000 range today 12/29: Patient underwent excisional debridement of muscle and soft tissue from left leg wound yesterday. Patient also had wound VAC placement left leg fasciotomy incisions. The patient had moderate amount of superficial necrotic muscle in the anterior lateral compartments with minimal amount of superficial necrotic muscle in the posterior compartment. Follow-up culture results. CK levels have improved to 6900 range. AST/ALT continue to trend downward. History Interval history: No new issues overnight Hospitalist Physical - Constitutional Vitals: Temp Pulse Resp BP Pulse Ox 98.1 F 102 H 18 106/53 96 12/29/21 09:44 12/29/21 09:44 12/29/21 09:44 12/29/21 09:44 12/29/21 09:20 General appearance: Present: no acute distress - EENT Eyes: Present: PERRL, EOM intact ENT: hearing intact, clear oral mucosa, dentition normal - Neck Neck: Present: supple, normal ROM - Respiratory Respiratory effort: normal Respiratory: bilateral: CTA - Cardiovascular Rhythm: regular Heart Sounds: Present: S1 & S2. Absent: gallop, rub - Extremities Extremities: no ischemia, No edema, Full ROM - Abdominal General gastrointestinal: soft, non-tender, non-distended, normal bowel sounds - Integumentary Integumentary: Present: clear, warm, dry - Neurologic Neurologic: CNII-XII intact, moves all extremities Results - Labs CBC & Chem 7: 12/28/21 09:56 12/28/21 09:56 Labs: Laboratory Last Values WBC 22.8 K/mm3 (4.5-11.0) H 12/28/21 09:56 RBC 3.97 M/mm3 (3.65-5.03) 12/28/21 09:56 Hgb 13.3 gm/dl (11.8-15.2) 12/28/21 09:56 Hct 38.6 % (35.5-45.6) 12/28/21 09:56 MCV 97 fl (84-94) H 12/28/21 09:56 MCH 34 pg (28-32) H 12/28/21 09:56 MCHC 34 % (32-34) 12/28/21 09:56 RDW 13.3 % (13.2-15.2) 12/28/21 09:56 Plt Count 342 K/mm3 (140-440) 12/28/21 09:56 Lymph % (Auto) 7.8 % (13.4-35.0) L 12/23/21 04:49 [place] % (Auto) 10.6 % (0.0-7.3) H 12/23/21 04:49 Eos % (Auto) 0.0 % (0.0-4.3) 12/23/21 04:49 Baso % (Auto) 0.0 % (0.0-1.8) 12/23/21 04:49 Lymph # (Auto) 1.1 K/mm3 (1.2-5.4) L 12/23/21 04:49 [place] # (Auto) 1.5 K/mm3 (0.0-0.8) H 12/23/21 04:49 Eos # (Auto) 0.0 K/mm3 (0.0-0.4) 12/23/21 04:49 Baso # (Auto) 0.0 K/mm3 (0.0-0.1) 12/23/21 04:49 Add Manual Diff Complete 12/20/21 23:35 Total Counted 100 12/20/21 23:35 Seg Neutrophils % 81.6 % (40.0-70.0) H 12/23/21 04:49 Seg Neuts % (Manual) 52.0 % (40.0-70.0) 12/20/21 23:35 Band Neutrophils % 0 % 12/20/21 23:35 Lymphocytes % (Manual) 41.0 % (13.4-35.0) H 12/20/21 23:35 Reactive Lymphs % (Man) 0 % 12/20/21 23:35 Monocytes % (Manual) 7.0 % (0.0-7.3) 12/20/21 23:35 Eosinophils % (Manual) 0 % (0.0-4.3) 12/20/21 23:35 Basophils % (Manual) 0 % (0.0-1.8) 12/20/21 23:35 Metamyelocytes % 0 % 12/20/21 23:35 Myelocytes % 0 % 12/20/21 23:35 Promyelocytes % 0 % 12/20/21 23:35 Blast Cells % 0 % 12/20/21 23:35 Nucleated RBC % Not Reportable 12/20/21 23:35 Seg Neutrophils # 11.6 K/mm3 (1.8-7.7) H 12/23/21 04:49 Seg Neutrophils # Man 7.3 K/mm3 (1.8-7.7) 12/20/21 23:35 Band Neutrophils # 0.0 K/mm3 12/20/21 23:35 Lymphocytes # (Manual) 5.7 K/mm3 (1.2-5.4) H 12/20/21 23:35 Abs React Lymphs (Man) 0.0 K/mm3 12/20/21 23:35 Monocytes # (Manual) 1.0 K/mm3 (0.0-0.8) H 12/20/21 23:35 Eosinophils # (Manual) 0.0 K/mm3 (0.0-0.4) 12/20/21 23:35 Basophils # (Manual) 0.0 K/mm3 (0.0-0.1) 12/20/21 23:35 Metamyelocytes # 0.0 K/mm3 12/20/21 23:35 Myelocytes # 0.0 K/mm3 12/20/21 23:35 Promyelocytes # 0.0 K/mm3 12/20/21 23:35 Blast Cells # 0.0 K/mm3 12/20/21 23:35 WBC Morphology Not Reportable 12/20/21 23:35 Hypersegmented Neuts Not Reportable 12/20/21 23:35 Hyposegmented Neuts Not Reportable 12/20/21 23:35 Hypogranular Neuts Not Reportable 12/20/21 23:35 Smudge Cells Not Reportable 12/20/21 23:35 Toxic Granulation Not Reportable 12/20/21 23:35 Toxic Vacuolation Not Reportable 12/20/21 23:35 Dohle Bodies Not Reportable 12/20/21 23:35 Pelger-Huet Anomaly Not Reportable 12/20/21 23:35 [place] Rods Not Reportable 12/20/21 23:35 Platelet Estimate Consistent w auto 12/20/21 23:35 Clumped Platelets Not Reportable 12/20/21 23:35 Plt Clumps, EDTA Not Reportable 12/20/21 23:35 Large Platelets Not Reportable 12/20/21 23:35 Giant Platelets Not Reportable 12/20/21 23:35 Platelet Satelliting Not Reportable 12/20/21 23:35 Plt Morphology Comment Not Reportable 12/20/21 23:35 RBC Morphology Normal 12/20/21 23:35 Dimorphic RBCs Not Reportable 12/20/21 23:35 Polychromasia Not Reportable 12/20/21 23:35 Hypochromasia Not Reportable 12/20/21 23:35 Poikilocytosis Not Reportable 12/20/21 23:35 Anisocytosis Not Reportable 12/20/21 23:35 Microcytosis Not Reportable 12/20/21 23:35 Macrocytosis Not Reportable 12/20/21 23:35 Spherocytes Not Reportable 12/20/21 23:35 Pappenheimer Bodies Not Reportable 12/20/21 23:35 Sickle Cells Not Reportable 12/20/21 23:35 Target Cells Not Reportable 12/20/21 23:35 Tear Drop Cells Not Reportable 12/20/21 23:35 Ovalocytes Not Reportable 12/20/21 23:35 Helmet Cells Not Reportable 12/20/21 23:35 [place] Bodies Not Reportable 12/20/21 23:35 [place] Rings Not Reportable 12/20/21 23:35 [place] Cells Not Reportable 12/20/21 23:35 Bite Cells Not Reportable 12/20/21 23:35 Crenated Cell Not Reportable 12/20/21 23:35 Elliptocytes Not Reportable 12/20/21 23:35 Acanthocytes (Spur) Not Reportable 12/20/21 23:35 Rouleaux Not Reportable 12/20/21 23:35 Hemoglobin C Crystals Not Reportable 12/20/21 23:35 Schistocytes Not Reportable 12/20/21 23:35 Malaria parasites Not Reportable 12/20/21 23:35 [place] Bodies Not Reportable 12/20/21 23:35 Hem Pathologist Commnt No 12/20/21 23:35 PT 13.4 Sec. (12.2-14.9) 12/21/21 13:30 INR 0.92 (0.87-1.13) 12/21/21 13:30 APTT 25.8 Sec. (24.2-36.6) 12/21/21 13:30 Sodium 138 mmol/L (137-145) 12/28/21 09:56 Potassium 3.7 mmol/L (3.6-5.0) 12/28/21 09:56 Chloride 97.3 mmol/L (98-107) L 12/28/21 09:56 Carbon Dioxide 30 mmol/L (22-30) 12/28/21 09:56 Anion Gap 14 mmol/L 12/28/21 09:56 BUN 9 mg/dL (9-20) 12/28/21 09:56 Creatinine 0.7 mg/dL (0.8-1.3) L 12/28/21 09:56 Estimated GFR > 60 ml/min 12/28/21 09:56 BUN/Creatinine Ratio 13 % 12/28/21 09:56 Glucose 88 mg/dL (75-100) 12/28/21 09:56 Lactic Acid 1.40 mmol/L (0.7-2.0) 12/21/21 13:30 Calcium 8.0 mg/dL (8.4-10.2) L 12/28/21 09:56 Phosphorus 2.80 mg/dL (2.5-4.5) 12/24/21 05:17 Magnesium 2.20 mg/dL (1.7-2.3) 12/24/21 05:17 Total Bilirubin 0.40 mg/dL (0.1-1.2) 12/28/21 09:56 Direct Bilirubin < 0.2 mg/dL (0-0.2) 12/21/21 22:47 AST 144 units/L (5-40) H 12/28/21 09:56 ALT 247 units/L (7-56) H 12/28/21 09:56 Alkaline Phosphatase 70 units/L (35-129) 12/28/21 09:56 Ammonia 37.0 umol/L (25-60) 12/23/21 04:49 Total Creatine Kinase 6940 units/L (55-170) H 12/28/21 09:56 Total Protein 4.8 g/dL (6.3-8.2) L 12/28/21 09:56 Albumin 2.9 g/dL (3.9-5) L 12/28/21 09:56 Albumin/Globulin Ratio 1.5 % 12/28/21 09:56 Amylase 25 units/L (27-131) L 12/23/21 04:49 Lipase 10 units/L (13-60) L 12/23/21 04:49 Coronavirus (PCR) Negative (Negative) 12/22/21 11:40 Hepatitis A IgM Ab Nonreactive (NonReactive) 12/21/21 13:30 Hep Bs Antigen Non-reactive (Negative) 12/21/21 13:30 Hep B Core IgM Ab Non-reactive (NonReactive) 12/21/21 13:30 Hepatitis C Antibody Non-reactive (NonReactive) 12/21/21 13:30 HIV 1&2 Antibody Rapid Non react (Non React) 12/22/21 16:42 HIV P24 Antigen Non react (Non React) 12/22/21 16:42 Microbiology: Microbiology 12/28/21 Unknown Leg - Left Surgical Biopsy Culture - Preliminary Kaur/IV: Voiding Method Urinal Active Medications - Current Medications Current Medications: Generic Name Dose Route Start Last Admin Trade Name Freq PRN Reason Stop Dose Admin Albuterol 2.5 mg 12/21/21 06:15 Albuterol 2.5 Mg/3 Ml Nebu IH Q3HRT PRN Shortness Of Breath Albuterol/Ipratropium 1 ampul 12/22/21 08:00 12/29/21 08:59 Ipratropium/Albuterol Sulfate 3 Ml Ampul.Neb IH 1 ampul BIDRT VLADIMIR Administration Diphenhydramine HCl 25 mg 12/21/21 06:24 12/26/21 18:49 Diphenhydramine 50 Mg/Ml Vial IV 25 mg Q6H PRN Administration Skin Irritation Docusate Sodium 100 mg 12/23/21 22:00 12/29/21 09:35 Docusate Sodium 100 Mg Cap PO 100 mg BID VLADIMIR Administration Famotidine 20 mg 12/26/21 10:00 12/29/21 09:35 Famotidine 20 Mg Tab PO 20 mg BID VLADIMIR Administration Gabapentin 100 mg 12/23/21 22:30 12/29/21 05:23 Gabapentin 100 Mg Cap PO 12/30/21 23:59 100 mg Q8HR VLADIMIR Administration Gabapentin 100 mg 12/31/21 06:00 Gabapentin 100 Mg Cap PO 01/04/22 14:01 0600,1400 VLADIMIR Gabapentin 300 mg 12/31/21 22:00 Gabapentin 300 Mg Cap PO 01/04/22 22:01 QHS VLADIMIR Gabapentin 300 mg 01/05/22 08:00 Gabapentin 300 Mg Cap PO TID@0800,1600,2200 VLADIMIR Heparin Sodium (Porcine) 5,000 unit 12/21/21 10:00 12/29/21 09:36 Heparin 5,000 Unit/1 Ml Vial SUB-Q 5,000 unit Q12HR VLADIMIR Administration Hydralazine HCl 10 mg 12/22/21 18:31 12/22/21 18:50 Hydralazine 20 Mg/1 Ml Inj IV 10 mg Q3HR PRN Administration Hypertension Hydromorphone HCl 0.5 mg 12/21/21 06:15 12/29/21 06:19 Hydromorphone 1 Mg/1 Ml Inj IV 0.5 mg Q3H PRN Administration Pain , Severe (7-10) Hydromorphone HCl 0.5 mg 12/28/21 18:18 Hydromorphone 1 Mg/1 Ml Inj IV 12/29/21 18:17 Q10MIN PRN Pain , Severe (7-10) Sodium Chloride 1,000 mls @ 200 mls/hr 12/22/21 18:30 12/28/21 23:35 Nacl 0.9% 1000 Ml IV 200 mls/hr DIRECT VLADIMIR Administration Morphine Sulfate 2 mg 12/21/21 06:15 12/29/21 05:10 Morphine 2 Mg/1 Ml Inj IV 2 mg Q4H PRN Administration Pain, Moderate (4-6) Ondansetron HCl 4 mg 12/21/21 06:15 Ondansetron 4 Mg/2 Ml Inj IV Q8H PRN Nausea And Vomiting Sodium Chloride 10 ml 12/21/21 10:00 12/29/21 09:36 Sodium Chloride 0.9% 10 Ml Flush Syringe IV 10 ml BID VLADIMIR Administration Sodium Chloride 10 ml 12/21/21 06:15 Sodium Chloride 0.9% 10 Ml Flush Syringe IV PRN PRN LINE FLUSH Valsartan 160 mg 12/22/21 22:00 12/29/21 09:35 Valsartan 160mg Tab PO 160 mg DAILY VLADIMIR Administration Nutrition/Malnutrition Assess - Dietary Evaluation Nutrition/Malnutrition Findings: Nutrition Notes Start: 12/28/21 16:45 Freq: Status: Active Protocol: Document 12/28/21 16:45 OPAL (Rec: 12/28/21 17:00 OPAL [id number]) Nutrition Notes Need for Assessment generated from: LOS Initial or Follow up Assessment Current Diagnosis Hypertension Other Pertinent Diagnosis Rabdomyolysis, Liver Failure, s/p L-LE 4 Compartment Fasciotomy. Current Diet NPO (since 12/28 00:01). Labs/Tests 12/28: Cl 97.3, Crea 0.7, Ca 8 .0. Pertinent Medications 12/28: Nutritionally unremarkable. Height 5 ft 6 in Weight 86.183 kg [place] Body Weight (kg) 64.54 BMI 30.7 Intake Prior to Admission Good Weight change and time frame Pt denies having loss body weight [employer]. Weight Status Obese Subjective/Other Information RD consult for LOS assessment. PT's PO intake of meals has been Fair (>50%), according to ADL notes. Pt has been on NPO in preparation for procedure on 12/28. Pt is on Room Air, O2 saturation @ 97%, according to Physical Assessment History notes. Pt presents L-LE Pitting Edema 3+, according to Physical Assessment History notes. Pt presents L-LE Vascular Wound, according to Physical Assessment History notes. Percent of energy/protein needs met: Pt currently on NPO. Prescribed Regular Diet provides for energy/protein needs (2,289 Kcal/89 g) during LOS; additionally, Dietary Supplements will support wound healing processes with 190 Kcal and 5 g of protein. Burn Absent Trauma Absent GI Symptoms None Food Allergy No Skin Integrity/Comment L-LE Vascular Wound Current % PO Fair (50-74%) Minimum of two criteria No #1 Nutrition Diagnosis Increased nutrient needs ( specify in comment below) Comments: Protein to support wound healing processes. Etiology L-LE 4 Compartment Fascitis. As Evidenced by Signs and Symptoms L-LE Vascular Wound Is patient on ventilator? No Is Patient Ambulatory and/or Out of Bed No REE-([facility]-confined to bed) 2083.920 Kcal/Kg value to use for calculation 19 Approximate Energy Requirements Using 1637 kcal/Kg Calculation Used for Recommendations Kcal/kg Additional Notes Protein: 1.25-1.5 g/Kg AdjBW; 85-114 g/day. Fluids: 1 ml/Kcal, or as per MD. Nutrition Intervention Change Diet Order: When pertinent, advance to Regular Diet. Add Supplement/Snack (indicate name/kcal When pertinent, start 28.8 pkt /protein ) Calvin; BID. Provides kCal: 190 Provides Protein (gm) 5 Goal #1 Support, through dietary supplementation, wound healing processes during LOS. Goal #2 Adjust the dietary intervention to better serve Pt's needs and clinical conditions during LOS. Goal #3 Maintain body weight within +/ -3% of admission body weight during LOS. Follow-Up By: 12/30/21 Additional Comments When pertinent, continue monitoring food tolerance, %PO intake of meals, and BM.
[2021-12-29] MEDS: SODIUM CHLORIDE 0.9% 1000 ML 1,000 ML IV SCH ×2 (10:53→18:14)
[2021-12-30] MEDS: HYDROmorphone 1 MG/1 ML INJ IV PRN (01:08)
[2021-12-30] MEDS: SODIUM CHLORIDE 0.9% 1000 ML 1,000 ML IV SCH ×5 (01:11→21:15)
[2021-12-30] MEDS: GABAPENTIN 100 MG CAP PO SCH ×3 (05:46→21:12)
[2021-12-30 05:51] LABS: Hematocrit 34.7 % (35.5-45.6); Hemoglobin 11.7 gm/dl (11.8-15.2); Mean Corpuscular HGB Conc 34 % (32-34); Mean Corpuscular Volume 96 fl (84-94); Platelet Count 368 K/mm3 (140-440); Red Blood Count 3.62 M/mm3 (3.65-5.03)
[2021-12-30 06:05] LABS: Blood Urea Nitrogen 7 mg/dL (9-20); Calcium 7.6 mg/dL (8.4-10.2); Hemolysis Index 4
[2021-12-30 06:06] LABS: BUN/Creatinine Ratio 14
[2021-12-30 08:26] LABS: Band Neutrophils # (Manual) 0.4 K/mm3; Basophils % (Manual) 0 % (0.0-1.8); Eosinophils % (Manual) 0 % (0.0-4.3); Total Cells Counted 100
[2021-12-30 08:32] LABS: Anisocytosis RARE; Large Platelets Rare; Macrocytosis Rare
[2021-12-30 08:33] LABS: Platelet Estimate Consistent w Auto
[2021-12-30] MEDS: IPRATROPIUM/ALBUTEROL SULFATE 3 ML AMPUL.NEB IH SCH ×2 (08:39→21:39)
[2021-12-30] MEDS: DOCUSATE SODIUM 100 MG CAP PO SCH ×2 (09:32→21:12)
[2021-12-30] MEDS: VALSARTAN 160MG TAB PO SCH (09:33)
[2021-12-30] MEDS: FAMOTIDINE 20 MG TAB PO SCH ×2 (09:36→21:12)
[2021-12-30] MEDS: HEPARIN 5,000 UNIT/1 ML VIAL SUB-Q SCH ×2 (09:36→21:12)
--- NOTE | 2021-12-30 10:10 | Progress Note ---
Assessment and Plan Patient status post debridement of left leg. Patient will need wound VAC for home use as well as home wound care. Additionally, the patient will need physical therapy. Consulted case management. Subjective Date of service: 12/30/21 Principal diagnosis: abnormal liver enzymes Interval history: Patient is postop day 1 following debridement and placement of wound VAC for left leg fasciotomy sites. Patient still with a sensation of her left foot but no motor. Edema of the left foot. White count is still elevated. Patient resting comfortably in bed. Wound VAC with only minimal drainage. Objective - Constitutional Vitals: Vital Signs - 12hr 12/29/21 12/30/21 12/30/21 23:33 09:33 09:59 Temperature 99.5 F Pulse Rate 108 H Respiratory 20 20 Rate Blood Pressure 123/72 121/53 O2 Sat by Pulse 96 97 Oximetry General appearance: Present: no acute distress - EENT Eyes: EOM intact ENT: hearing intact - Neck Neck: supple, normal ROM - Respiratory Respiratory effort: normal - Breasts Breasts: deferred Extremities: abnormal - Gastrointestinal General gastrointestinal: Present: deferred - Psychiatric Psychiatric: appropriate mood/affect, cooperative - Labs CBC & Chem 7: 12/30/21 04:49 12/30/21 04:49 Labs: Abnormal lab results 12/30/21 12/30/21 Range/Units 04:49 04:49 WBC 20.6 H (4.5-11.0) K/mm3 RBC 3.62 L (3.65-5.03) M/mm3 Hgb 11.7 L (11.8-15.2) gm/dl Hct 34.7 L (35.5-45.6) % MCV 96 H (84-94) fl RDW 13.0 L (13.2-15.2) % Seg Neuts % (Manual) 83.0 H (40.0-70.0) % Lymphocytes % (Manual) 5.0 L (13.4-35.0) % Monocytes % (Manual) 8.0 H (0.0-7.3) % Seg Neutrophils # Man 17.1 H (1.8-7.7) K/mm3 Lymphocytes # (Manual) 1.0 L (1.2-5.4) K/mm3 Monocytes # (Manual) 1.6 H (0.0-0.8) K/mm3 Sodium 136 L (137-145) mmol/L Potassium 3.4 L (3.6-5.0) mmol/L BUN 7 L (9-20) mg/dL Creatinine 0.5 L (0.8-1.3) mg/dL Glucose 119 H (75-100) mg/dL Calcium 7.6 L (8.4-10.2) mg/dL Total Creatine Kinase 4125 H (55-170) units/L Medications & Allergies - Medications Allergies/Adverse Reactions: Allergies ceftriaxone [From Rocephin] Allergy (Severe, Verified 12/23/21 10:23) Unknown SEVERE RASH MOTTLING OF THE SKIN POST ADMINISTRATION OF IM [employer]IN [employer] Penicillins Allergy (Severe, Verified 12/23/21 10:23) Unknown SEVERE RASH MOTTLING OF THE SKIN POST ADMINISTRATION OF IM [employer] Home Medications: Home Medications Medication Instructions Recorded Confirmed Last Taken Type No Known Home Medications [No 12/21/21 12/21/21 Unknown History Reported Home Medications] Active Medications: Generic Name Dose Route Start Last Admin Trade Name Freq PRN Reason Stop Dose Admin Albuterol 2.5 mg 12/21/21 06:15 Albuterol 2.5 Mg/3 Ml Nebu IH Q3HRT PRN Shortness Of Breath Albuterol/Ipratropium 1 ampul 12/22/21 08:00 12/30/21 08:39 Ipratropium/Albuterol Sulfate 3 Ml Ampul.Neb IH 1 ampul BIDRT VLADIMIR Administration Diphenhydramine HCl 25 mg 12/21/21 06:24 12/26/21 18:49 Diphenhydramine 50 Mg/Ml Vial IV 25 mg Q6H PRN Administration Skin Irritation Docusate Sodium 100 mg 12/23/21 22:00 12/30/21 09:32 Docusate Sodium 100 Mg Cap PO 100 mg BID VLADIMIR Administration Famotidine 20 mg 12/26/21 10:00 12/30/21 09:36 Famotidine 20 Mg Tab PO 20 mg BID VLADIMIR Administration Gabapentin 100 mg 12/23/21 22:30 12/30/21 05:46 Gabapentin 100 Mg Cap PO 12/30/21 23:59 100 mg Q8HR VLADIMIR Administration Gabapentin 100 mg 12/31/21 06:00 Gabapentin 100 Mg Cap PO 01/04/22 14:01 0600,1400 VLADIMIR Gabapentin 300 mg 12/31/21 22:00 Gabapentin 300 Mg Cap PO 01/04/22 22:01 QHS VLADIMIR Gabapentin 300 mg 01/05/22 08:00 Gabapentin 300 Mg Cap PO TID@0800,1600,2200 VLADIMIR Heparin Sodium (Porcine) 5,000 unit 12/21/21 10:00 12/30/21 09:36 Heparin 5,000 Unit/1 Ml Vial SUB-Q 5,000 unit Q12HR VLADIMIR Administration Hydralazine HCl 10 mg 12/22/21 18:31 12/22/21 18:50 Hydralazine 20 Mg/1 Ml Inj IV 10 mg Q3HR PRN Administration Hypertension Hydromorphone HCl 0.5 mg 12/21/21 06:15 12/30/21 01:08 Hydromorphone 1 Mg/1 Ml Inj IV 0.5 mg Q3H PRN Administration Pain , Severe (7-10) Sodium Chloride 1,000 mls @ 200 mls/hr 12/22/21 18:30 12/30/21 05:46 Nacl 0.9% 1000 Ml IV 200 mls/hr DIRECT VLADIMIR Administration Morphine Sulfate 2 mg 12/21/21 06:15 12/29/21 21:18 Morphine 2 Mg/1 Ml Inj IV 2 mg Q4H PRN Administration Pain, Moderate (4-6) Ondansetron HCl 4 mg 12/21/21 06:15 Ondansetron 4 Mg/2 Ml Inj IV Q8H PRN Nausea And Vomiting Sodium Chloride 10 ml 12/21/21 10:00 12/30/21 09:36 Sodium Chloride 0.9% 10 Ml Flush Syringe IV 10 ml BID VLADIMIR Administration Sodium Chloride 10 ml 12/21/21 06:15 12/30/21 01:09 Sodium Chloride 0.9% 10 Ml Flush Syringe IV 10 ml PRN PRN Administration LINE FLUSH Valsartan 160 mg 12/22/21 22:00 12/30/21 09:33 Valsartan 160mg Tab PO 160 mg DAILY VLADIMIR Administration
--- NOTE | 2021-12-30 11:25 | Progress Note ---
Assessment and Plan Assessment and plan: This is a 36 year old transgendered female undergoing gender transformation with silicone injection to buttocks ([place] 2016) and breast implants, heavy drinker on the weekends (bottle of vodka) who presented to [facility] on 12/21 because of adverse drug reaction after reportedly self administration of rocephin and PCN for sore throat. Patient reportedly collapsed while checking in to the emergency department, has complains of severe 10 out of 10 pain in left thigh and has noticeable mottling of skin in thigh and left lower abdomen. Patient underwent a CT of the left leg which showed possible cellulitis with no drainable fluid collection and was started on empiric antibiotics. Patient admitted to the hospital service with diagnosis of acute liver failure, rhabdomyolysis, s/p 4 compartment fasciotomy to left lower extremity Acute liver failure -GI consulted, appreciate recommendations -Per GI: Suspect due to rhabdomyolysis given elevated creatinine kinase levels -If ALT continues to rise recommend MRCP -Abdominal ultrasound showed mild diffuse biliary dilation, obstruction to lesion of the distal common bile duct cannot be excluded consider MRCP, no evidence of gallstones within the gallbladder -PPI -Regular diet -BR: colace -Trend LFTs Compartment syndrome to LLE -Vascular surgery consulted, appreciate recommendations -s/p self admin of IM abx to midthigh -c/o pain, decreased sensation, pulses were dopplarable, paralysis, mottled skin -s/p 4 compartment tracheotomy on 12/21 with vascular surgery -Bilateral lower extremity Doppler ultrasound showed no DVT -Left lower extremity CT with contrast showed appearance of posterior soft tissue complex cellulitis with small subcutaneous lymph nodes, no drainable fluid collections present, contusion could have similar appearance -Bilateral lower extremity arterial duplex showed no significant lower extremity peripheral artery disease -Normal ABIs Peripheral neuropathy -Avoid delirium -Reorientation as needed -Maintain sleep-wake cycle -As needed analgesia -Neurology consulted, appreciate recommendations -Gabapentin HTN -Blood pressure monitoring per protocol -Valsartan -PRN hydralazine Rhabdomyolysis acute kidney injury with vasomotor nephropathy now resolved -Nephrology consulted, appreciate recommendations -Strict intake and output -Renally dose medications -Avoid nephrotoxic medications -MIVF -Sodium bicarb -Trend BMP, CK Hospital course to date: 12/21: Venous ultrasound shows no DVT, Vascular surgery consulted who performed a fasciotomy and plan to transfer patient to [facility] post intervention. Neurology consulted 12/22: Transfer to ICU, GI and neurology consulted. 12/23: Patient will be transferred back to the floor from ICU. Her liver enzymes and creatinine are trending down. Will be started on gabapentin per neurology recommendations and antibiotics discontinued. 12/24: Continue supportive care. CPK slowly improving. Vascular plans for closure of fasciotomy early next week. PT OT evaluation and treatment closure done. Continue wound management. No evidence of withdrawal noted at this time. Continue to monitor LFTs which are also slightly improving. Plan discussed in detail with the patient who verbalized understanding 12/25: Patient seen and examined clinically stable continues to show some improvement. Closure of fasciotomy planned for tomorrow. Renal function is improving. CK ordered and pending 12/26: Patient seen and examined, wbc mildly elevated likely secondary to steroids, will change to po for two additional days and stop, benefit probably already achieved, continue wound dressing, sensory function improved, awaiting wound vac and closure. Patient advised on clinically progress. 12/27: Patient seen and examined awaiting her vascular surgery for closure of fasciotomy. CK is decreasing less than 9000 today. We will continue aggressive IV fluids until we have the resolution below 5000. LFTs on the downward trend also. Leukocytosis appears to have peaked steroids was changed to oral for 2 additional days today is 1 of 2.. Plan of care discussed in detail with the patient who verbalized understanding. 12/28: Left lower extremity compartment syndrome status post fasciotomies. Cau se is still unclear and may represent some allergic reaction. Motor function is unchanged from original exam. Sensory function has improved with full sensation of the foot.vascular surgery to place wound vacs on the leg today. CK improved to the 8000 range today 12/29: Patient underwent excisional debridement of muscle and soft tissue from left leg wound yesterday. Patient also had wound VAC placement left leg fasciotomy incisions. The patient had moderate amount of superficial necrotic muscle in the anterior lateral compartments with minimal amount of superficial necrotic muscle in the posterior compartment. Follow-up culture results. CK levels have improved to 6900 range. AST/ALT continue to trend downward. 12/30: I discussed the case with Dr. Lopez who recommends home wound VAC as well as physical therapy. I also discussed these needs with case management who was attempting to arrange for discharge planning. CK continues to improve with levels in the 4000 range. History Interval history: No new issues overnight Hospitalist Physical - Constitutional Vitals: Temp Pulse Resp BP Pulse Ox 99.5 F 108 H 20 121/53 97 12/29/21 23:33 12/30/21 09:33 12/30/21 09:59 12/30/21 09:33 12/30/21 09:59 General appearance: Present: no acute distress - EENT Eyes: Present: PERRL, EOM intact ENT: hearing intact, clear oral mucosa, dentition normal - Neck Neck: Present: supple, normal ROM - Respiratory Respiratory effort: normal Respiratory: bilateral: CTA - Cardiovascular Rhythm: regular Heart Sounds: Present: S1 & S2. Absent: gallop, rub - Extremities Extremities: no ischemia, No edema, Full ROM - Abdominal General gastrointestinal: soft, non-tender, non-distended, normal bowel sounds - Integumentary Integumentary: Present: clear, warm, dry - Neurologic Neurologic: CNII-XII intact, moves all extremities Results - Labs CBC & Chem 7: 12/30/21 04:49 12/30/21 04:49 Labs: Laboratory Last Values WBC 20.6 K/mm3 (4.5-11.0) H 12/30/21 04:49 RBC 3.62 M/mm3 (3.65-5.03) L 12/30/21 04:49 Hgb 11.7 gm/dl (11.8-15.2) L 12/30/21 04:49 Hct 34.7 % (35.5-45.6) L 12/30/21 04:49 MCV 96 fl (84-94) H 12/30/21 04:49 MCH 32 pg (28-32) 12/30/21 04:49 MCHC 34 % (32-34) 12/30/21 04:49 RDW 13.0 % (13.2-15.2) L 12/30/21 04:49 Plt Count 368 K/mm3 (140-440) 12/30/21 04:49 Lymph % (Auto) 7.8 % (13.4-35.0) L 12/23/21 04:49 Menard % (Auto) 10.6 % (0.0-7.3) H 12/23/21 04:49 Eos % (Auto) 0.0 % (0.0-4.3) 12/23/21 04:49 Baso % (Auto) 0.0 % (0.0-1.8) 12/23/21 04:49 Lymph # (Auto) 1.1 K/mm3 (1.2-5.4) L 12/23/21 04:49 Menard # (Auto) 1.5 K/mm3 (0.0-0.8) H 12/23/21 04:49 Eos # (Auto) 0.0 K/mm3 (0.0-0.4) 12/23/21 04:49 Baso # (Auto) 0.0 K/mm3 (0.0-0.1) 12/23/21 04:49 Add Manual Diff Complete 12/30/21 04:49 Total Counted 100 12/30/21 04:49 Seg Neutrophils % 81.6 % (40.0-70.0) H 12/23/21 04:49 Seg Neuts % (Manual) 83.0 % (40.0-70.0) H 12/30/21 04:49 Band Neutrophils % 2.0 % 12/30/21 04:49 Lymphocytes % (Manual) 5.0 % (13.4-35.0) L 12/30/21 04:49 Reactive Lymphs % (Man) 0 % 12/30/21 04:49 Monocytes % (Manual) 8.0 % (0.0-7.3) H 12/30/21 04:49 Eosinophils % (Manual) 0 % (0.0-4.3) 12/30/21 04:49 Basophils % (Manual) 0 % (0.0-1.8) 12/30/21 04:49 Metamyelocytes % 2.0 % 12/30/21 04:49 Myelocytes % 0 % 12/30/21 04:49 Promyelocytes % 0 % 12/30/21 04:49 Blast Cells % 0 % 12/30/21 04:49 Nucleated RBC % Not Reportable 12/30/21 04:49 Seg Neutrophils # 11.6 K/mm3 (1.8-7.7) H 12/23/21 04:49 Seg Neutrophils # Man 17.1 K/mm3 (1.8-7.7) H 12/30/21 04:49 Band Neutrophils # 0.4 K/mm3 12/30/21 04:49 Lymphocytes # (Manual) 1.0 K/mm3 (1.2-5.4) L 12/30/21 04:49 Abs React Lymphs (Man) 0.0 K/mm3 12/30/21 04:49 Monocytes # (Manual) 1.6 K/mm3 (0.0-0.8) H 12/30/21 04:49 Eosinophils # (Manual) 0.0 K/mm3 (0.0-0.4) 12/30/21 04:49 Basophils # (Manual) 0.0 K/mm3 (0.0-0.1) 12/30/21 04:49 Metamyelocytes # 0.4 K/mm3 12/30/21 04:49 Myelocytes # 0.0 K/mm3 12/30/21 04:49 Promyelocytes # 0.0 K/mm3 12/30/21 04:49 Blast Cells # 0.0 K/mm3 12/30/21 04:49 WBC Morphology Not Reportable 12/30/21 04:49 Hypersegmented Neuts Not Reportable 12/30/21 04:49 Hyposegmented Neuts Rare 12/30/21 04:49 Hypogranular Neuts Not Reportable 12/30/21 04:49 Smudge Cells Not Reportable 12/30/21 04:49 Toxic Granulation Not Reportable 12/30/21 04:49 Toxic Vacuolation Not Reportable 12/30/21 04:49 Dohle Bodies Not Reportable 12/30/21 04:49 Pelger-Huet Anomaly Not Reportable 12/30/21 04:49 [place] Rods Not Reportable 12/30/21 04:49 Platelet Estimate Consistent w auto 12/30/21 04:49 Clumped Platelets Not Reportable 12/30/21 04:49 Plt Clumps, EDTA Not Reportable 12/30/21 04:49 Large Platelets Rare 12/30/21 04:49 Giant Platelets Not Reportable 12/30/21 04:49 Platelet Satelliting Not Reportable 12/30/21 04:49 Plt Morphology Comment Not Reportable 12/30/21 04:49 RBC Morphology Not Reportable 12/30/21 04:49 Dimorphic RBCs Not Reportable 12/30/21 04:49 Polychromasia Not Reportable 12/30/21 04:49 Hypochromasia Not Reportable 12/30/21 04:49 Poikilocytosis Not Reportable 12/30/21 04:49 Anisocytosis Rare 12/30/21 04:49 Microcytosis Not Reportable 12/30/21 04:49 Macrocytosis Rare 12/30/21 04:49 Spherocytes Not Reportable 12/30/21 04:49 Pappenheimer Bodies Not Reportable 12/30/21 04:49 Sickle Cells Not Reportable 12/30/21 04:49 Target Cells Not Reportable 12/30/21 04:49 Tear Drop Cells Not Reportable 12/30/21 04:49 Ovalocytes Not Reportable 12/30/21 04:49 Helmet Cells Not Reportable 12/30/21 04:49 Parsons-Durant Bodies Not Reportable 12/30/21 04:49 [place] Rings Not Reportable 12/30/21 04:49 Sebastien Cells Not Reportable 12/30/21 04:49 Bite Cells Not Reportable 12/30/21 04:49 Crenated Cell Not Reportable 12/30/21 04:49 Elliptocytes Not Reportable 12/30/21 04:49 Acanthocytes (Spur) Not Reportable 12/30/21 04:49 Rouleaux Not Reportable 12/30/21 04:49 Hemoglobin C Crystals Not Reportable 12/30/21 04:49 Schistocytes Not Reportable 12/30/21 04:49 Malaria parasites Not Reportable 12/30/21 04:49 [place] Bodies Not Reportable 12/30/21 04:49 Hem Pathologist Commnt No 12/30/21 04:49 PT 13.4 Sec. (12.2-14.9) 12/21/21 13:30 INR 0.92 (0.87-1.13) 12/21/21 13:30 APTT 25.8 Sec. (24.2-36.6) 12/21/21 13:30 Sodium 136 mmol/L (137-145) L 12/30/21 04:49 Potassium 3.4 mmol/L (3.6-5.0) L 12/30/21 04:49 Chloride 100.1 mmol/L (98-107) 12/30/21 04:49 Carbon Dioxide 26 mmol/L (22-30) 12/30/21 04:49 Anion Gap 13 mmol/L 12/30/21 04:49 BUN 7 mg/dL (9-20) L 12/30/21 04:49 Creatinine 0.5 mg/dL (0.8-1.3) L 12/30/21 04:49 Estimated GFR > 60 ml/min 12/30/21 04:49 BUN/Creatinine Ratio 14 % 12/30/21 04:49 Glucose 119 mg/dL (75-100) H 12/30/21 04:49 Lactic Acid 1.40 mmol/L (0.7-2.0) 12/21/21 13:30 Calcium 7.6 mg/dL (8.4-10.2) L 12/30/21 04:49 Phosphorus 2.80 mg/dL (2.5-4.5) 12/24/21 05:17 Magnesium 2.20 mg/dL (1.7-2.3) 12/24/21 05:17 Total Bilirubin 0.40 mg/dL (0.1-1.2) 12/28/21 09:56 Direct Bilirubin < 0.2 mg/dL (0-0.2) 12/21/21 22:47 AST 144 units/L (5-40) H 12/28/21 09:56 ALT 247 units/L (7-56) H 12/28/21 09:56 Alkaline Phosphatase 70 units/L (35-129) 12/28/21 09:56 Ammonia 37.0 umol/L (25-60) 12/23/21 04:49 Total Creatine Kinase 4125 units/L (55-170) H 12/30/21 04:49 Total Protein 4.8 g/dL (6.3-8.2) L 12/28/21 09:56 Albumin 2.9 g/dL (3.9-5) L 12/28/21 09:56 Albumin/Globulin Ratio 1.5 % 12/28/21 09:56 Amylase 25 units/L (27-131) L 12/23/21 04:49 Lipase 10 units/L (13-60) L 12/23/21 04:49 Coronavirus (PCR) Negative (Negative) 12/22/21 11:40 Hepatitis A IgM Ab Nonreactive (NonReactive) 12/21/21 13:30 Hep Bs Antigen Non-reactive (Negative) 12/21/21 13:30 Hep B Core IgM Ab Non-reactive (NonReactive) 12/21/21 13:30 Hepatitis C Antibody Non-reactive (NonReactive) 12/21/21 13:30 HIV 1&2 Antibody Rapid Non react (Non React) 12/22/21 16:42 HIV P24 Antigen Non react (Non React) 12/22/21 16:42 Microbiology: Microbiology 12/28/21 Unknown Leg - Left Surgical Biopsy Culture - Preliminary Kaur/IV: Voiding Method Urinal Active Medications - Current Medications Current Medications: Generic Name Dose Route Start Last Admin Trade Name Freq PRN Reason Stop Dose Admin Albuterol 2.5 mg 12/21/21 06:15 Albuterol 2.5 Mg/3 Ml Nebu IH Q3HRT PRN Shortness Of Breath Albuterol/Ipratropium 1 ampul 12/22/21 08:00 12/30/21 08:39 Ipratropium/Albuterol Sulfate 3 Ml Ampul.Neb IH 1 ampul BIDRT VLADIMIR Administration Diphenhydramine HCl 25 mg 12/21/21 06:24 12/26/21 18:49 Diphenhydramine 50 Mg/Ml Vial IV 25 mg Q6H PRN Administration Skin Irritation Docusate Sodium 100 mg 12/23/21 22:00 12/30/21 09:32 Docusate Sodium 100 Mg Cap PO 100 mg BID VLADIMIR Administration Famotidine 20 mg 12/26/21 10:00 12/30/21 09:36 Famotidine 20 Mg Tab PO 20 mg BID VLADIMIR Administration Gabapentin 100 mg 12/23/21 22:30 12/30/21 05:46 Gabapentin 100 Mg Cap PO 12/30/21 23:59 100 mg Q8HR VLADIMIR Administration Gabapentin 100 mg 12/31/21 06:00 Gabapentin 100 Mg Cap PO 01/04/22 14:01 0600,1400 VLADIMIR Gabapentin 300 mg 12/31/21 22:00 Gabapentin 300 Mg Cap PO 01/04/22 22:01 QHS VLADIMIR Gabapentin 300 mg 01/05/22 08:00 Gabapentin 300 Mg Cap PO TID@0800,1600,2200 VLADIMIR Heparin Sodium (Porcine) 5,000 unit 12/21/21 10:00 12/30/21 09:36 Heparin 5,000 Unit/1 Ml Vial SUB-Q 5,000 unit Q12HR VLADIMIR Administration Hydralazine HCl 10 mg 12/22/21 18:31 12/22/21 18:50 Hydralazine 20 Mg/1 Ml Inj IV 10 mg Q3HR PRN Administration Hypertension Hydromorphone HCl 0.5 mg 12/21/21 06:15 12/30/21 01:08 Hydromorphone 1 Mg/1 Ml Inj IV 0.5 mg Q3H PRN Administration Pain , Severe (7-10) Sodium Chloride 1,000 mls @ 200 mls/hr 12/22/21 18:30 12/30/21 05:46 Nacl 0.9% 1000 Ml IV 200 mls/hr DIRECT VLADIMIR Administration Morphine Sulfate 2 mg 12/21/21 06:15 12/29/21 21:18 Morphine 2 Mg/1 Ml Inj IV 2 mg Q4H PRN Administration Pain, Moderate (4-6) Ondansetron HCl 4 mg 12/21/21 06:15 Ondansetron 4 Mg/2 Ml Inj IV Q8H PRN Nausea And Vomiting Sodium Chloride 10 ml 12/21/21 10:00 12/30/21 09:36 Sodium Chloride 0.9% 10 Ml Flush Syringe IV 10 ml BID VLADIMIR Administration Sodium Chloride 10 ml 12/21/21 06:15 12/30/21 01:09 Sodium Chloride 0.9% 10 Ml Flush Syringe IV 10 ml PRN PRN Administration LINE FLUSH Valsartan 160 mg 12/22/21 22:00 12/30/21 09:33 Valsartan 160mg Tab PO 160 mg DAILY VLADIMIR Administration Nutrition/Malnutrition Assess - Dietary Evaluation Nutrition/Malnutrition Findings: Nutrition Notes Start: 12/28/21 16:45 Freq: Status: Active Protocol: Document 12/28/21 16:45 OPAL (Rec: 12/28/21 17:00 OPAL [id number]) Nutrition Notes Need for Assessment generated from: LOS Initial or Follow up Assessment Current Diagnosis Hypertension Other Pertinent Diagnosis Rabdomyolysis, Liver Failure, s/p L-LE 4 Compartment Fasciotomy. Current Diet NPO (since 12/28 00:01). Labs/Tests 12/28: Cl 97.3, Crea 0.7, Ca 8 .0. Pertinent Medications 12/28: Nutritionally unremarkable. Height 5 ft 6 in Weight 86.183 kg Success Body Weight (kg) 64.54 BMI 30.7 Intake Prior to Admission Good Weight change and time frame Pt denies having loss body weight [employer]. Weight Status Obese Subjective/Other Information RD consult for LOS assessment. PT's PO intake of meals has been Fair (>50%), according to ADL notes. Pt has been on NPO in preparation for procedure on 12/28. Pt is on Room Air, O2 saturation @ 97%, according to Physical Assessment History notes. Pt presents L-LE Pitting Edema 3+, according to Physical Assessment History notes. Pt presents L-LE Vascular Wound, according to Physical Assessment History notes. Percent of energy/protein needs met: Pt currently on NPO. Prescribed Regular Diet provides for energy/protein needs (2,289 Kcal/89 g) during LOS; additionally, Dietary Supplements will support wound healing processes with 190 Kcal and 5 g of protein. Burn Absent Trauma Absent GI Symptoms None Food Allergy No Skin Integrity/Comment L-LE Vascular Wound Current % PO Fair (50-74%) Minimum of two criteria No #1 Nutrition Diagnosis Increased nutrient needs ( specify in comment below) Comments: Protein to support wound healing processes. Etiology L-LE 4 Compartment Fascitis. As Evidenced by Signs and Symptoms L-LE Vascular Wound Is patient on ventilator? No Is Patient Ambulatory and/or Out of Bed No REE-([facility]-confined to bed) 2083.920 Kcal/Kg value to use for calculation 19 Approximate Energy Requirements Using 1637 kcal/Kg Calculation Used for Recommendations Kcal/kg Additional Notes Protein: 1.25-1.5 g/Kg AdjBW; 85-114 g/day. Fluids: 1 ml/Kcal, or as per MD. Nutrition Intervention Change Diet Order: When pertinent, advance to Regular Diet. Add Supplement/Snack (indicate name/kcal When pertinent, start 28.8 pkt /protein ) Calvin; BID. Provides kCal: 190 Provides Protein (gm) 5 Goal #1 Support, through dietary supplementation, wound healing processes during LOS. Goal #2 Adjust the dietary intervention to better serve Pt's needs and clinical conditions during LOS. Goal #3 Maintain body weight within +/ -3% of admission body weight during LOS. Follow-Up By: 12/30/21 Additional Comments When pertinent, continue monitoring food tolerance, %PO intake of meals, and BM.
[2021-12-30] MEDS: MORPHINE 2 MG/1 ML INJ IV PRN ×2 (16:32→21:23)
--- NOTE | 2021-12-30 20:12 | Event Note ---
Patient's renal function has been normal, at this time we will sign off the case please call if needed please consider replacing potassium to keep it around 4.5 or above consider oral supplementation of calcium, elevated liver enzyme most likely due to rhabdomyolysis which is improving already
[2021-12-31] MEDS: SODIUM CHLORIDE 0.9% 1000 ML 1,000 ML IV SCH ×3 (05:23→17:27)
[2021-12-31] MEDS: GABAPENTIN 100 MG CAP PO SCH ×2 (05:23→13:57)
[2021-12-31 06:17] LABS: Basophils % (Auto) 0.1 % (0.0-1.8); Eosinophils % (Auto) 0.4 % (0.0-4.3); Lymphocytes # (Auto) 1.9 K/mm3 (1.2-5.4); Lymphocytes % (Auto) 13.9 % (13.4-35.0); Mean Corpuscular HGB Conc 33 % (32-34); Mean Corpuscular Volume 99 fl (84-94); Monocytes # (Auto) 1.2 K/mm3 (0.0-0.8); Monocytes % (Auto) 8.7 % (0.0-7.3); Platelet Count 420 K/mm3 (140-440); Red Blood Count 3.65 M/mm3 (3.65-5.03)
[2021-12-31 06:38] LABS: Alanine Aminotransferase 202 units/L (7-56); Albumin 2.3 g/dL (3.9-5); Blood Urea Nitrogen 6 mg/dL (9-20); Calcium 7.7 mg/dL (8.4-10.2); Hemolysis Index 3
[2021-12-31 06:39] LABS: BUN/Creatinine Ratio 10; Bilirubin,Direct < 0.2 mg/dL (0-0.2)
[2021-12-31] MEDS: IPRATROPIUM/ALBUTEROL SULFATE 3 ML AMPUL.NEB IH SCH ×2 (07:42→19:40)
--- NOTE | 2021-12-31 08:49 | Progress Note ---
Assessment and Plan Assessment and plan: This is a 36 year old transgendered female undergoing gender transformation with silicone injection to buttocks ([place] 2016) and breast implants, heavy drinker on the weekends (bottle of vodka) who presented to [facility] on 12/21 because of adverse drug reaction after reportedly self administration of rocephin and PCN for sore throat. Patient reportedly collapsed while checking in to the emergency department, has complains of severe 10 out of 10 pain in left thigh and has noticeable mottling of skin in thigh and left lower abdomen. Patient underwent a CT of the left leg which showed possible cellulitis with no drainable fluid collection and was started on empiric antibiotics. Patient admitted to the hospital service with diagnosis of acute liver failure, rhabdomyolysis, s/p 4 compartment fasciotomy to left lower extremity Acute liver failure -GI consulted, appreciate recommendations -Per GI: Suspect due to rhabdomyolysis given elevated creatinine kinase levels -If ALT continues to rise recommend MRCP -Abdominal ultrasound showed mild diffuse biliary dilation, obstruction to lesion of the distal common bile duct cannot be excluded consider MRCP, no evidence of gallstones within the gallbladder -PPI -Regular diet -BR: colace -Trend LFTs Compartment syndrome to LLE -Vascular surgery consulted, appreciate recommendations -s/p self admin of IM abx to midthigh -c/o pain, decreased sensation, pulses were dopplarable, paralysis, mottled skin -s/p 4 compartment tracheotomy on 12/21 with vascular surgery -Bilateral lower extremity Doppler ultrasound showed no DVT -Left lower extremity CT with contrast showed appearance of posterior soft tissue complex cellulitis with small subcutaneous lymph nodes, no drainable fluid collections present, contusion could have similar appearance -Bilateral lower extremity arterial duplex showed no significant lower extremity peripheral artery disease -Normal ABIs Peripheral neuropathy -Avoid delirium -Reorientation as needed -Maintain sleep-wake cycle -As needed analgesia -Neurology consulted, appreciate recommendations -Gabapentin HTN -Blood pressure monitoring per protocol -Valsartan -PRN hydralazine Rhabdomyolysis acute kidney injury with vasomotor nephropathy now resolved -Nephrology consulted, appreciate recommendations -Strict intake and output -Renally dose medications -Avoid nephrotoxic medications -MIVF -Sodium bicarb -Trend BMP, CK Hospital course to date: 12/21: Venous ultrasound shows no DVT, Vascular surgery consulted who performed a fasciotomy and plan to transfer patient to [facility] post intervention. Neurology consulted 12/22: Transfer to ICU, GI and neurology consulted. 12/23: Patient will be transferred back to the floor from ICU. Her liver enzymes and creatinine are trending down. Will be started on gabapentin per neurology recommendations and antibiotics discontinued. 12/24: Continue supportive care. CPK slowly improving. Vascular plans for closure of fasciotomy early next week. PT OT evaluation and treatment closure done. Continue wound management. No evidence of withdrawal noted at this time. Continue to monitor LFTs which are also slightly improving. Plan discussed in detail with the patient who verbalized understanding 12/25: Patient seen and examined clinically stable continues to show some improvement. Closure of fasciotomy planned for tomorrow. Renal function is improving. CK ordered and pending 12/26: Patient seen and examined, wbc mildly elevated likely secondary to steroids, will change to po for two additional days and stop, benefit probably already achieved, continue wound dressing, sensory function improved, awaiting wound vac and closure. Patient advised on clinically progress. 12/27: Patient seen and examined awaiting her vascular surgery for closure of fasciotomy. CK is decreasing less than 9000 today. We will continue aggressive IV fluids until we have the resolution below 5000. LFTs on the downward trend also. Leukocytosis appears to have peaked steroids was changed to oral for 2 additional days today is 1 of 2.. Plan of care discussed in detail with the patient who verbalized understanding. 12/28: Left lower extremity compartment syndrome status post fasciotomies. Cau se is still unclear and may represent some allergic reaction. Motor function is unchanged from original exam. Sensory function has improved with full sensation of the foot.vascular surgery to place wound vacs on the leg today. CK improved to the 8000 range today 12/29: Patient underwent excisional debridement of muscle and soft tissue from left leg wound yesterday. Patient also had wound VAC placement left leg fasciotomy incisions. The patient had moderate amount of superficial necrotic muscle in the anterior lateral compartments with minimal amount of superficial necrotic muscle in the posterior compartment. Follow-up culture results. CK levels have improved to 6900 range. AST/ALT continue to trend downward. 12/30: I discussed the case with Dr. Lopez who recommends home wound VAC as well as physical therapy. I also discussed these needs with case management who was attempting to arrange for discharge planning. CK continues to improve with levels in the 4000 range. 12/31: Still awaiting for home wound VAC arrangements to be made. Leukocytosis is much improved down to 13,900 today. LFTs continue to trend down to normal range. CK levels still in the 4000 range. Nephrology has signed off. Anticipate discharge later today or in a.m. History Interval history: No new issues overnight Hospitalist Physical - Constitutional Vitals: Temp Pulse Resp BP Pulse Ox 99.1 F 96 H 18 101/79 100 12/31/21 05:21 12/31/21 07:42 12/31/21 07:42 12/31/21 05:21 12/31/21 07:24 General appearance: Present: no acute distress - EENT Eyes: Present: PERRL, EOM intact ENT: hearing intact, clear oral mucosa, dentition normal - Neck Neck: Present: supple, normal ROM - Respiratory Respiratory effort: normal Respiratory: bilateral: CTA - Cardiovascular Rhythm: regular Heart Sounds: Present: S1 & S2. Absent: gallop, rub - Extremities Extremities: no ischemia, No edema, Full ROM - Abdominal General gastrointestinal: soft, non-tender, non-distended, normal bowel sounds - Integumentary Integumentary: Present: clear, warm, dry - Neurologic Neurologic: CNII-XII intact, moves all extremities Results - Labs CBC & Chem 7: 12/31/21 04:59 12/31/21 04:59 Labs: Laboratory Last Values WBC 13.9 K/mm3 (4.5-11.0) H 12/31/21 04:59 RBC 3.65 M/mm3 (3.65-5.03) 12/31/21 04:59 Hgb 12.0 gm/dl (11.8-15.2) 12/31/21 04:59 Hct 36.0 % (35.5-45.6) 12/31/21 04:59 MCV 99 fl (84-94) H 12/31/21 04:59 MCH 33 pg (28-32) H 12/31/21 04:59 MCHC 33 % (32-34) 12/31/21 04:59 RDW 13.0 % (13.2-15.2) L 12/31/21 04:59 Plt Count 420 K/mm3 (140-440) 12/31/21 04:59 Lymph % (Auto) 13.9 % (13.4-35.0) 12/31/21 04:59 [place] % (Auto) 8.7 % (0.0-7.3) H 12/31/21 04:59 Eos % (Auto) 0.4 % (0.0-4.3) 12/31/21 04:59 Baso % (Auto) 0.1 % (0.0-1.8) 12/31/21 04:59 Lymph # (Auto) 1.9 K/mm3 (1.2-5.4) 12/31/21 04:59 [place] # (Auto) 1.2 K/mm3 (0.0-0.8) H 12/31/21 04:59 Eos # (Auto) 0.0 K/mm3 (0.0-0.4) 12/31/21 04:59 Baso # (Auto) 0.0 K/mm3 (0.0-0.1) 12/31/21 04:59 Add Manual Diff Complete 12/30/21 04:49 Total Counted 100 12/30/21 04:49 Seg Neutrophils % 76.9 % (40.0-70.0) H 12/31/21 04:59 Seg Neuts % (Manual) 83.0 % (40.0-70.0) H 12/30/21 04:49 Band Neutrophils % 2.0 % 12/30/21 04:49 Lymphocytes % (Manual) 5.0 % (13.4-35.0) L 12/30/21 04:49 Reactive Lymphs % (Man) 0 % 12/30/21 04:49 Monocytes % (Manual) 8.0 % (0.0-7.3) H 12/30/21 04:49 Eosinophils % (Manual) 0 % (0.0-4.3) 12/30/21 04:49 Basophils % (Manual) 0 % (0.0-1.8) 12/30/21 04:49 Metamyelocytes % 2.0 % 12/30/21 04:49 Myelocytes % 0 % 12/30/21 04:49 Promyelocytes % 0 % 12/30/21 04:49 Blast Cells % 0 % 12/30/21 04:49 Nucleated RBC % Not Reportable 12/30/21 04:49 Seg Neutrophils # 10.7 K/mm3 (1.8-7.7) H 12/31/21 04:59 Seg Neutrophils # Man 17.1 K/mm3 (1.8-7.7) H 12/30/21 04:49 Band Neutrophils # 0.4 K/mm3 12/30/21 04:49 Lymphocytes # (Manual) 1.0 K/mm3 (1.2-5.4) L 12/30/21 04:49 Abs React Lymphs (Man) 0.0 K/mm3 12/30/21 04:49 Monocytes # (Manual) 1.6 K/mm3 (0.0-0.8) H 12/30/21 04:49 Eosinophils # (Manual) 0.0 K/mm3 (0.0-0.4) 12/30/21 04:49 Basophils # (Manual) 0.0 K/mm3 (0.0-0.1) 12/30/21 04:49 Metamyelocytes # 0.4 K/mm3 12/30/21 04:49 Myelocytes # 0.0 K/mm3 12/30/21 04:49 Promyelocytes # 0.0 K/mm3 12/30/21 04:49 Blast Cells # 0.0 K/mm3 12/30/21 04:49 WBC Morphology Not Reportable 12/30/21 04:49 Hypersegmented Neuts Not Reportable 12/30/21 04:49 Hyposegmented Neuts Rare 12/30/21 04:49 Hypogranular Neuts Not Reportable 12/30/21 04:49 Smudge Cells Not Reportable 12/30/21 04:49 Toxic Granulation Not Reportable 12/30/21 04:49 Toxic Vacuolation Not Reportable 12/30/21 04:49 Dohle Bodies Not Reportable 12/30/21 04:49 Pelger-Huet Anomaly Not Reportable 12/30/21 04:49 [place] Rods Not Reportable 12/30/21 04:49 Platelet Estimate Consistent w auto 12/30/21 04:49 Clumped Platelets Not Reportable 12/30/21 04:49 Plt Clumps, EDTA Not Reportable 12/30/21 04:49 Large Platelets Rare 12/30/21 04:49 Giant Platelets Not Reportable 12/30/21 04:49 Platelet Satelliting Not Reportable 12/30/21 04:49 Plt Morphology Comment Not Reportable 12/30/21 04:49 RBC Morphology Not Reportable 12/30/21 04:49 Dimorphic RBCs Not Reportable 12/30/21 04:49 Polychromasia Not Reportable 12/30/21 04:49 Hypochromasia Not Reportable 12/30/21 04:49 Poikilocytosis Not Reportable 12/30/21 04:49 Anisocytosis Rare 12/30/21 04:49 Microcytosis Not Reportable 12/30/21 04:49 Macrocytosis Rare 12/30/21 04:49 Spherocytes Not Reportable 12/30/21 04:49 Pappenheimer Bodies Not Reportable 12/30/21 04:49 Sickle Cells Not Reportable 12/30/21 04:49 Target Cells Not Reportable 12/30/21 04:49 Tear Drop Cells Not Reportable 12/30/21 04:49 Ovalocytes Not Reportable 12/30/21 04:49 Helmet Cells Not Reportable 12/30/21 04:49 [place] Bodies Not Reportable 12/30/21 04:49 [place] Rings Not Reportable 12/30/21 04:49 [place] Cells Not Reportable 12/30/21 04:49 Bite Cells Not Reportable 12/30/21 04:49 Crenated Cell Not Reportable 12/30/21 04:49 Elliptocytes Not Reportable 12/30/21 04:49 Acanthocytes (Spur) Not Reportable 12/30/21 04:49 Rouleaux Not Reportable 12/30/21 04:49 Hemoglobin C Crystals Not Reportable 12/30/21 04:49 Schistocytes Not Reportable 12/30/21 04:49 Malaria parasites Not Reportable 12/30/21 04:49 [place] Bodies Not Reportable 12/30/21 04:49 Hem Pathologist Commnt No 12/30/21 04:49 PT 13.4 Sec. (12.2-14.9) 12/21/21 13:30 INR 0.92 (0.87-1.13) 12/21/21 13:30 APTT 25.8 Sec. (24.2-36.6) 12/21/21 13:30 Sodium 136 mmol/L (137-145) L 12/31/21 04:59 Potassium 3.6 mmol/L (3.6-5.0) 12/31/21 04:59 Chloride 100.7 mmol/L (98-107) 12/31/21 04:59 Carbon Dioxide 28 mmol/L (22-30) 12/31/21 04:59 Anion Gap 11 mmol/L 12/31/21 04:59 BUN 6 mg/dL (9-20) L 12/31/21 04:59 Creatinine 0.6 mg/dL (0.8-1.3) L 12/31/21 04:59 Estimated GFR > 60 ml/min 12/31/21 04:59 BUN/Creatinine Ratio 10 % 12/31/21 04:59 Glucose 102 mg/dL (75-100) H 12/31/21 04:59 Lactic Acid 1.40 mmol/L (0.7-2.0) 12/21/21 13:30 Calcium 7.7 mg/dL (8.4-10.2) L 12/31/21 04:59 Phosphorus 2.80 mg/dL (2.5-4.5) 12/24/21 05:17 Magnesium 2.20 mg/dL (1.7-2.3) 12/24/21 05:17 Total Bilirubin 0.60 mg/dL (0.1-1.2) 12/31/21 04:59 Direct Bilirubin < 0.2 mg/dL (0-0.2) 12/31/21 04:59 Indirect Bilirubin 0.4 mg/dL 12/31/21 04:59 AST 131 units/L (5-40) H 12/31/21 04:59 ALT 202 units/L (7-56) H 12/31/21 04:59 Alkaline Phosphatase 73 units/L (35-129) 12/31/21 04:59 Ammonia 37.0 umol/L (25-60) 12/23/21 04:49 Total Creatine Kinase 4245 units/L (55-170) H 12/31/21 04:59 Total Protein 4.9 g/dL (6.3-8.2) L 12/31/21 04:59 Albumin 2.3 g/dL (3.9-5) L 12/31/21 04:59 Albumin/Globulin Ratio 0.9 % 12/31/21 04:59 Amylase 25 units/L (27-131) L 12/23/21 04:49 Lipase 10 units/L (13-60) L 12/23/21 04:49 Coronavirus (PCR) Negative (Negative) 12/22/21 11:40 Hepatitis A IgM Ab Nonreactive (NonReactive) 12/21/21 13:30 Hep Bs Antigen Non-reactive (Negative) 12/21/21 13:30 Hep B Core IgM Ab Non-reactive (NonReactive) 12/21/21 13:30 Hepatitis C Antibody Non-reactive (NonReactive) 12/21/21 13:30 HIV 1&2 Antibody Rapid Non react (Non React) 12/22/21 16:42 HIV P24 Antigen Non react (Non React) 12/22/21 16:42 Microbiology: Microbiology 12/28/21 Unknown Leg - Left Surgical Biopsy Culture - Preliminary Kaur/IV: Voiding Method Urinal Active Medications - Current Medications Current Medications: Generic Name Dose Route Start Last Admin Trade Name Freq PRN Reason Stop Dose Admin Albuterol 2.5 mg 12/21/21 06:15 Albuterol 2.5 Mg/3 Ml Nebu IH Q3HRT PRN Shortness Of Breath Albuterol/Ipratropium 1 ampul 12/22/21 08:00 12/31/21 07:42 Ipratropium/Albuterol Sulfate 3 Ml Ampul.Neb IH 1 ampul BIDRT VLADIMIR Administration Diphenhydramine HCl 25 mg 12/21/21 06:24 12/26/21 18:49 Diphenhydramine 50 Mg/Ml Vial IV 25 mg Q6H PRN Administration Skin Irritation Docusate Sodium 100 mg 12/23/21 22:00 12/30/21 21:12 Docusate Sodium 100 Mg Cap PO 100 mg BID VLADIMIR Administration Famotidine 20 mg 12/26/21 10:00 12/30/21 21:12 Famotidine 20 Mg Tab PO 20 mg BID VLADIMIR Administration Gabapentin 100 mg 12/31/21 06:00 12/31/21 05:23 Gabapentin 100 Mg Cap PO 01/04/22 14:01 100 mg 0600,1400 VLADIMIR Administration Gabapentin 300 mg 12/31/21 22:00 Gabapentin 300 Mg Cap PO 01/04/22 22:01 QHS VLADIMIR Gabapentin 300 mg 01/05/22 08:00 Gabapentin 300 Mg Cap PO TID@0800,1600,2200 [facility] Heparin Sodium (Porcine) 5,000 unit 12/21/21 10:00 12/30/21 21:12 Heparin 5,000 Unit/1 Ml Vial SUB-Q 5,000 unit Q12HR VLADIMIR Administration Hydralazine HCl 10 mg 12/22/21 18:31 12/22/21 18:50 Hydralazine 20 Mg/1 Ml Inj IV 10 mg Q3HR PRN Administration Hypertension Hydromorphone HCl 0.5 mg 12/21/21 06:15 12/30/21 01:08 Hydromorphone 1 Mg/1 Ml Inj IV 0.5 mg Q3H PRN Administration Pain , Severe (7-10) Sodium Chloride 1,000 mls @ 200 mls/hr 12/22/21 18:30 12/31/21 05:23 Nacl 0.9% 1000 Ml IV 200 mls/hr DIRECT VLADIMIR Administration Morphine Sulfate 2 mg 12/21/21 06:15 12/30/21 21:23 Morphine 2 Mg/1 Ml Inj IV 2 mg Q4H PRN Administration Pain, Moderate (4-6) Ondansetron HCl 4 mg 12/21/21 06:15 Ondansetron 4 Mg/2 Ml Inj IV Q8H PRN Nausea And Vomiting Sodium Chloride 10 ml 12/21/21 10:00 12/30/21 21:13 Sodium Chloride 0.9% 10 Ml Flush Syringe IV 10 ml BID VLADIMIR Administration Sodium Chloride 10 ml 12/21/21 06:15 12/30/21 01:09 Sodium Chloride 0.9% 10 Ml Flush Syringe IV 10 ml PRN PRN Administration LINE FLUSH Valsartan 160 mg 12/22/21 22:00 12/30/21 09:33 Valsartan 160mg Tab PO 160 mg DAILY VLADIMIR Administration Nutrition/Malnutrition Assess - Dietary Evaluation Nutrition/Malnutrition Findings: Nutrition Notes Start: 12/28/21 16:45 Freq: Status: Active Protocol: Document 12/30/21 12:23 OPAL (Rec: 12/30/21 12:43 OPAL [id number]) Nutrition Notes Initial or Follow up Brief Note Current Diagnosis Hypertension Other Pertinent Diagnosis Rabdomyolysis, Liver Failure, s/p L-LE 4 Compartment Fasciotomy w/Debridem. Current Diet Regular Diet + Dietary Supplements. (since B 12/29). Height 5 ft 6 in Weight 86.183 kg [place] Body Weight (kg) 64.54 BMI 30.7 Weight change and time frame No bnody weight change reporterd in 2 days. Weight Status Obese Subjective/Other Information RD consult for routine F/U on dietary advancement. Pt is now on PO diet, but no reports available on Pt's PO intake of meals at the time, will assess at F/U. Pt is on Room Air, O2 saturation @ 97%, according to Physical Assessment History notes. Procedure on 12/28: Excisinal debridement of muscle and soft tissue from L-LE wound, and woundVAC placement; Leg fasciotomy lateral and medial incisions, Well tolerated, according to Operative Report. Percent of energy/protein needs met: Prescribed Regular Diet provides for energy/protein needs (2,289 Kcal/89 g) during LOS; additionally, Dietary Supplements will support wound healing processes with 190 Kcal and 5 g of protein. #1 Nutrition Diagnosis Increased nutrient needs ( specify in comment below) Comments: Protein to support wound healing processes. Diagnosis Progress(for reassessment Continues documentation) Is patient on ventilator? No Is Patient Ambulatory and/or Out of Bed No REE-([place]-confined to bed) 2083.920 Kcal/Kg value to use for calculation 19 Approximate Energy Requirements Using 1637 kcal/Kg Calculation Used for Recommendations Kcal/kg Additional Notes Protein: 1.25-1.5 g/Kg AdjBW; 85-114 g/day. Fluids: 1 ml/Kcal, or as per MD. Nutrition Intervention Change Diet Order: Continue Regular Diet. Add Supplement/Snack (indicate name/kcal Continue 28.8 g pkt [place]; BID /protein ) . Provides kCal: 190 Provides Protein (gm) 5 Goal #1 Support, through dietary supplementation, wound healing processes during LOS. Goal #2 Adjust the dietary intervention to better serve Pt's needs and clinical conditions during LOS. Goal #3 Maintain body weight within +/ -3% of admission body weight during LOS. Follow-Up By: 01/06/22 Additional Comments Continue monitoring food tolerance, %PO intake of meals , and BM.
[2021-12-31] MEDS: FAMOTIDINE 20 MG TAB PO SCH ×2 (09:32→21:13)
[2021-12-31] MEDS: VALSARTAN 160MG TAB PO SCH (09:32)
[2021-12-31] MEDS: HEPARIN 5,000 UNIT/1 ML VIAL SUB-Q SCH ×2 (09:32→21:15)
[2021-12-31] MEDS: DOCUSATE SODIUM 100 MG CAP PO SCH ×2 (09:32→21:15)
--- NOTE | 2021-12-31 13:34 | Progress Note ---
Assessment and Plan Increase activity with physical therapy Will need foot drop splint Vac change today, by wound care nurse Home when wound vac and home health are set up Subjective Date of service: 12/31/21 Principal diagnosis: abnormal liver enzymes Interval history: Patient without complaints today. Objective - Constitutional Vitals: Vital Signs - 12hr 12/31/21 12/31/21 12/31/21 05:21 07:24 07:42 Temperature 99.1 F Pulse Rate 101 H Pulse Rate [ 96 H Anterior Bilateral Throughout] Respiratory 18 Rate Respiratory 18 Rate [Anterior Bilateral Throughout] Blood Pressure 101/79 O2 Sat by Pulse 98 100 Oximetry 12/31/21 12/31/21 08:32 11:44 Temperature 98.4 F 98.7 F Pulse Rate 105 H 109 H Pulse Rate [ Anterior Bilateral Throughout] Respiratory 18 18 Rate Respiratory Rate [Anterior Bilateral Throughout] Blood Pressure 137/79 115/73 O2 Sat by Pulse 97 98 Oximetry Extremities: pulses intact (palpable left DP), abnormal (edema of left foot, cyanotic changes have improved) Extremity abnormal: other (wound vac in place) - Labs CBC & Chem 7: 12/31/21 04:59 12/31/21 04:59 Labs: Abnormal lab results 12/31/21 12/31/21 Range/Units 04:59 04:59 WBC 13.9 H (4.5-11.0) K/mm3 MCV 99 H (84-94) fl MCH 33 H (28-32) pg RDW 13.0 L (13.2-15.2) % [place] % (Auto) 8.7 H (0.0-7.3) % [place] # (Auto) 1.2 H (0.0-0.8) K/mm3 Seg Neutrophils % 76.9 H (40.0-70.0) % Seg Neutrophils # 10.7 H (1.8-7.7) K/mm3 Sodium 136 L (137-145) mmol/L BUN 6 L (9-20) mg/dL Creatinine 0.6 L (0.8-1.3) mg/dL Glucose 102 H (75-100) mg/dL Calcium 7.7 L (8.4-10.2) mg/dL AST 131 H (5-40) units/L ALT 202 H (7-56) units/L Total Creatine Kinase 4245 H (55-170) units/L Total Protein 4.9 L (6.3-8.2) g/dL Albumin 2.3 L (3.9-5) g/dL Medications & Allergies - Medications Allergies/Adverse Reactions: Allergies ceftriaxone [From Rocephin] Allergy (Severe, Verified 12/23/21 10:23) Unknown SEVERE RASH 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 Penicillins Allergy (Severe, Verified 12/23/21 10:23) Unknown SEVERE RASH 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 Home Medications: Home Medications Medication Instructions Recorded Confirmed Last Taken Type No Known Home Medications [No 12/21/21 12/21/21 Unknown History Reported Home Medications] Active Medications: Generic Name Dose Route Start Last Admin Trade Name Freq PRN Reason Stop Dose Admin Albuterol 2.5 mg 12/21/21 06:15 Albuterol 2.5 Mg/3 Ml Nebu IH Q3HRT PRN Shortness Of Breath Albuterol/Ipratropium 1 ampul 12/22/21 08:00 12/31/21 07:42 Ipratropium/Albuterol Sulfate 3 Ml Ampul.Neb IH 1 ampul BIDRT VLADIMIR Administration Diphenhydramine HCl 25 mg 12/21/21 06:24 12/26/21 18:49 Diphenhydramine 50 Mg/Ml Vial IV 25 mg Q6H PRN Administration Skin Irritation Docusate Sodium 100 mg 12/23/21 22:00 12/31/21 09:32 Docusate Sodium 100 Mg Cap PO 100 mg BID VLADIMIR Administration Famotidine 20 mg 12/26/21 10:00 12/31/21 09:32 Famotidine 20 Mg Tab PO 20 mg BID VLADIMIR Administration Gabapentin 100 mg 12/31/21 06:00 12/31/21 05:23 Gabapentin 100 Mg Cap PO 01/04/22 14:01 100 mg 0600,1400 VLADIMIR Administration Gabapentin 300 mg 12/31/21 22:00 Gabapentin 300 Mg Cap PO 01/04/22 22:01 QHS VLADIMIR Gabapentin 300 mg 01/05/22 08:00 Gabapentin 300 Mg Cap PO TID@0800,1600,2200 VLADIMIR Heparin Sodium (Porcine) 5,000 unit 12/21/21 10:00 12/31/21 09:32 Heparin 5,000 Unit/1 Ml Vial SUB-Q 5,000 unit Q12HR VLADIMIR Administration Hydralazine HCl 10 mg 12/22/21 18:31 12/22/21 18:50 Hydralazine 20 Mg/1 Ml Inj IV 10 mg Q3HR PRN Administration Hypertension Hydromorphone HCl 0.5 mg 12/21/21 06:15 12/30/21 01:08 Hydromorphone 1 Mg/1 Ml Inj IV 0.5 mg Q3H PRN Administration Pain , Severe (7-10) Sodium Chloride 1,000 mls @ 200 mls/hr 12/22/21 18:30 12/31/21 11:38 Nacl 0.9% 1000 Ml IV 200 mls/hr DIRECT VLADIMIR Administration Morphine Sulfate 2 mg 12/21/21 06:15 12/30/21 21:23 Morphine 2 Mg/1 Ml Inj IV 2 mg Q4H PRN Administration Pain, Moderate (4-6) Ondansetron HCl 4 mg 12/21/21 06:15 Ondansetron 4 Mg/2 Ml Inj IV Q8H PRN Nausea And Vomiting Sodium Chloride 10 ml 12/21/21 10:00 12/31/21 09:33 Sodium Chloride 0.9% 10 Ml Flush Syringe IV 10 ml BID VLADIMIR Administration Sodium Chloride 10 ml 12/21/21 06:15 12/30/21 01:09 Sodium Chloride 0.9% 10 Ml Flush Syringe IV 10 ml PRN PRN Administration LINE FLUSH Valsartan 160 mg 12/22/21 22:00 12/31/21 09:32 Valsartan 160mg Tab PO 160 mg DAILY VLADIMIR Administration
[2021-12-31] MEDS: MORPHINE 2 MG/1 ML INJ IV PRN (15:29)
[2021-12-31] MEDS: GABAPENTIN 300 MG CAP PO SCH (21:14)
[2022-01-01] MEDS: SODIUM CHLORIDE 0.9% 1000 ML 1,000 ML IV SCH ×2 (05:23→21:33)
[2022-01-01] MEDS: GABAPENTIN 100 MG CAP PO SCH ×2 (05:23→13:12)
[2022-01-01] MEDS: MORPHINE 2 MG/1 ML INJ IV PRN ×2 (05:27→19:52)
[2022-01-01 06:55] LABS: Basophils % (Auto) 0.3 % (0.0-1.8); Eosinophils % (Auto) 0.3 % (0.0-4.3); Hemoglobin 11.6 gm/dl (11.8-15.2); Lymphocytes # (Auto) 1.5 K/mm3 (1.2-5.4); Lymphocytes % (Auto) 11.3 % (13.4-35.0); Mean Corpuscular HGB Conc 33 % (32-34); Mean Corpuscular Volume 99 fl (84-94); Monocytes % (Auto) 7.6 % (0.0-7.3); Platelet Count 455 K/mm3 (140-440); Red Blood Count 3.55 M/mm3 (3.65-5.03); Red Cell Distribution Width 13.2 % (13.2-15.2)
[2022-01-01 07:09] LABS: Alanine Aminotransferase 153 units/L (7-56); Albumin 2.3 g/dL (3.9-5); Blood Urea Nitrogen 6 mg/dL (9-20); Calcium 8.3 mg/dL (8.4-10.2); Hemolysis Index 2
[2022-01-01 07:12] LABS: BUN/Creatinine Ratio 12; Bilirubin,Direct < 0.2 mg/dL (0-0.2)
[2022-01-01] MEDS: IPRATROPIUM/ALBUTEROL SULFATE 3 ML AMPUL.NEB IH SCH ×2 (07:53→20:08)
[2022-01-01] MEDS: FAMOTIDINE 20 MG TAB PO SCH ×2 (09:32→21:23)
[2022-01-01] MEDS: HEPARIN 5,000 UNIT/1 ML VIAL SUB-Q SCH ×2 (09:32→21:23)
[2022-01-01] MEDS: VALSARTAN 160MG TAB PO SCH (09:32)
[2022-01-01] MEDS: DOCUSATE SODIUM 100 MG CAP PO SCH ×2 (09:32→21:22)
--- NOTE | 2022-01-01 13:12 | Progress Note ---
Assessment and Plan Assessment and plan: This is a 36 year old transgendered female undergoing gender transformation with silicone injection to buttocks ([place] 2016) and breast implants, heavy drinker on the weekends (bottle of vodka) who presented to [facility] on 12/21 because of adverse drug reaction after reportedly self administration of rocephin and PCN for sore throat. Patient reportedly collapsed while checking in to the emergency department, has complains of severe 10 out of 10 pain in left thigh and has noticeable mottling of skin in thigh and left lower abdomen. Patient underwent a CT of the left leg which showed possible cellulitis with no drainable fluid collection and was started on empiric antibiotics. Patient admitted to the hospital service with diagnosis of acute liver failure, rhabdomyolysis, s/p 4 compartment fasciotomy to left lower extremity Acute liver failure -GI consulted, appreciate recommendations -Per GI: Suspect due to rhabdomyolysis given elevated creatinine kinase levels -If ALT continues to rise recommend MRCP -Abdominal ultrasound showed mild diffuse biliary dilation, obstruction to lesion of the distal common bile duct cannot be excluded consider MRCP, no evidence of gallstones within the gallbladder -PPI -Regular diet -BR: colace -Trend LFTs Compartment syndrome to LLE -Vascular surgery consulted, appreciate recommendations -s/p self admin of IM abx to midthigh -c/o pain, decreased sensation, pulses were dopplarable, paralysis, mottled skin -s/p 4 compartment tracheotomy on 12/21 with vascular surgery -Bilateral lower extremity Doppler ultrasound showed no DVT -Left lower extremity CT with contrast showed appearance of posterior soft tissue complex cellulitis with small subcutaneous lymph nodes, no drainable fluid collections present, contusion could have similar appearance -Bilateral lower extremity arterial duplex showed no significant lower extremity peripheral artery disease -Normal ABIs Peripheral neuropathy -Avoid delirium -Reorientation as needed -Maintain sleep-wake cycle -As needed analgesia -Neurology consulted, appreciate recommendations -Gabapentin HTN -Blood pressure monitoring per protocol -Valsartan -PRN hydralazine Rhabdomyolysis acute kidney injury with vasomotor nephropathy now resolved -Nephrology consulted, appreciate recommendations -Strict intake and output -Renally dose medications -Avoid nephrotoxic medications -MIVF -Sodium bicarb -Trend BMP, CK Hospital course to date: 12/21: Venous ultrasound shows no DVT, Vascular surgery consulted who performed a fasciotomy and plan to transfer patient to [facility] post intervention. Neurology consulted 12/22: Transfer to ICU, GI and neurology consulted. 12/23: Patient will be transferred back to the floor from ICU. Her liver enzymes and creatinine are trending down. Will be started on gabapentin per neurology recommendations and antibiotics discontinued. 12/24: Continue supportive care. CPK slowly improving. Vascular plans for closure of fasciotomy early next week. PT OT evaluation and treatment closure done. Continue wound management. No evidence of withdrawal noted at this time. Continue to monitor LFTs which are also slightly improving. Plan discussed in detail with the patient who verbalized understanding 12/25: Patient seen and examined clinically stable continues to show some improvement. Closure of fasciotomy planned for tomorrow. Renal function is improving. CK ordered and pending 12/26: Patient seen and examined, wbc mildly elevated likely secondary to steroids, will change to po for two additional days and stop, benefit probably already achieved, continue wound dressing, sensory function improved, awaiting wound vac and closure. Patient advised on clinically progress. 12/27: Patient seen and examined awaiting her vascular surgery for closure of fasciotomy. CK is decreasing less than 9000 today. We will continue aggressive IV fluids until we have the resolution below 5000. LFTs on the downward trend also. Leukocytosis appears to have peaked steroids was changed to oral for 2 additional days today is 1 of 2.. Plan of care discussed in detail with the patient who verbalized understanding. 12/28: Left lower extremity compartment syndrome status post fasciotomies. Cau se is still unclear and may represent some allergic reaction. Motor function is unchanged from original exam. Sensory function has improved with full sensation of the foot.vascular surgery to place wound vacs on the leg today. CK improved to the 8000 range today 12/29: Patient underwent excisional debridement of muscle and soft tissue from left leg wound yesterday. Patient also had wound VAC placement left leg fasciotomy incisions. The patient had moderate amount of superficial necrotic muscle in the anterior lateral compartments with minimal amount of superficial necrotic muscle in the posterior compartment. Follow-up culture results. CK levels have improved to 6900 range. AST/ALT continue to trend downward. 12/30: I discussed the case with Dr. Lopez who recommends home wound VAC as well as physical therapy. I also discussed these needs with case management who was attempting to arrange for discharge planning. CK continues to improve with levels in the 4000 range. 12/31: Still awaiting for home wound VAC arrangements to be made. Leukocytosis is much improved down to 13,900 today. LFTs continue to trend down to normal range. CK levels still in the 4000 range. Nephrology has signed off. Anticipate discharge later today or in a.m. 01/01: Still awaiting for home wound VAC arrangements to be made. Laboratories continue to include including LFTs, CK and leukocytosis. History Interval history: No new issues overnight Hospitalist Physical - Constitutional Vitals: Temp Pulse Resp BP Pulse Ox 99.4 F 96 H 22 118/64 99 01/01/22 11:33 01/01/22 11:33 01/01/22 11:33 01/01/22 11:33 01/01/22 11:33 General appearance: Present: no acute distress - EENT Eyes: Present: PERRL, EOM intact ENT: hearing intact, clear oral mucosa, dentition normal - Neck Neck: Present: supple, normal ROM - Respiratory Respiratory effort: normal Respiratory: bilateral: CTA - Cardiovascular Rhythm: regular Heart Sounds: Present: S1 & S2. Absent: gallop, rub - Extremities Extremities: no ischemia, No edema, Full ROM - Abdominal General gastrointestinal: soft, non-tender, non-distended, normal bowel sounds - Integumentary Integumentary: Present: clear, warm, dry - Neurologic Neurologic: CNII-XII intact, moves all extremities Results - Labs CBC & Chem 7: 01/01/22 05:17 01/01/22 05:17 Labs: Laboratory Last Values WBC 13.6 K/mm3 (4.5-11.0) H 01/01/22 05:17 RBC 3.55 M/mm3 (3.65-5.03) L 01/01/22 05:17 Hgb 11.6 gm/dl (11.8-15.2) L 01/01/22 05:17 Hct 35.0 % (35.5-45.6) L 01/01/22 05:17 MCV 99 fl (84-94) H 01/01/22 05:17 MCH 33 pg (28-32) H 01/01/22 05:17 MCHC 33 % (32-34) 01/01/22 05:17 RDW 13.2 % (13.2-15.2) 01/01/22 05:17 Plt Count 455 K/mm3 (140-440) H 01/01/22 05:17 Lymph % (Auto) 11.3 % (13.4-35.0) L 01/01/22 05:17 [place] % (Auto) 7.6 % (0.0-7.3) H 01/01/22 05:17 Eos % (Auto) 0.3 % (0.0-4.3) 01/01/22 05:17 Baso % (Auto) 0.3 % (0.0-1.8) 01/01/22 05:17 Lymph # (Auto) 1.5 K/mm3 (1.2-5.4) 01/01/22 05:17 [place] # (Auto) 1.0 K/mm3 (0.0-0.8) H 01/01/22 05:17 Eos # (Auto) 0.0 K/mm3 (0.0-0.4) 01/01/22 05:17 Baso # (Auto) 0.0 K/mm3 (0.0-0.1) 01/01/22 05:17 Add Manual Diff Complete 12/30/21 04:49 Total Counted 100 12/30/21 04:49 Seg Neutrophils % 80.5 % (40.0-70.0) H 01/01/22 05:17 Seg Neuts % (Manual) 83.0 % (40.0-70.0) H 12/30/21 04:49 Band Neutrophils % 2.0 % 12/30/21 04:49 Lymphocytes % (Manual) 5.0 % (13.4-35.0) L 12/30/21 04:49 Reactive Lymphs % (Man) 0 % 12/30/21 04:49 Monocytes % (Manual) 8.0 % (0.0-7.3) H 12/30/21 04:49 Eosinophils % (Manual) 0 % (0.0-4.3) 12/30/21 04:49 Basophils % (Manual) 0 % (0.0-1.8) 12/30/21 04:49 Metamyelocytes % 2.0 % 12/30/21 04:49 Myelocytes % 0 % 12/30/21 04:49 Promyelocytes % 0 % 12/30/21 04:49 Blast Cells % 0 % 12/30/21 04:49 Nucleated RBC % Not Reportable 12/30/21 04:49 Seg Neutrophils # 11.0 K/mm3 (1.8-7.7) H 01/01/22 05:17 Seg Neutrophils # Man 17.1 K/mm3 (1.8-7.7) H 12/30/21 04:49 Band Neutrophils # 0.4 K/mm3 12/30/21 04:49 Lymphocytes # (Manual) 1.0 K/mm3 (1.2-5.4) L 12/30/21 04:49 Abs React Lymphs (Man) 0.0 K/mm3 12/30/21 04:49 Monocytes # (Manual) 1.6 K/mm3 (0.0-0.8) H 12/30/21 04:49 Eosinophils # (Manual) 0.0 K/mm3 (0.0-0.4) 12/30/21 04:49 Basophils # (Manual) 0.0 K/mm3 (0.0-0.1) 12/30/21 04:49 Metamyelocytes # 0.4 K/mm3 12/30/21 04:49 Myelocytes # 0.0 K/mm3 12/30/21 04:49 Promyelocytes # 0.0 K/mm3 12/30/21 04:49 Blast Cells # 0.0 K/mm3 12/30/21 04:49 WBC Morphology Not Reportable 12/30/21 04:49 Hypersegmented Neuts Not Reportable 12/30/21 04:49 Hyposegmented Neuts Rare 12/30/21 04:49 Hypogranular Neuts Not Reportable 12/30/21 04:49 Smudge Cells Not Reportable 12/30/21 04:49 Toxic Granulation Not Reportable 12/30/21 04:49 Toxic Vacuolation Not Reportable 12/30/21 04:49 Dohle Bodies Not Reportable 12/30/21 04:49 Pelger-Huet Anomaly Not Reportable 12/30/21 04:49 [place] Rods Not Reportable 12/30/21 04:49 Platelet Estimate Consistent w auto 12/30/21 04:49 Clumped Platelets Not Reportable 12/30/21 04:49 Plt Clumps, EDTA Not Reportable 12/30/21 04:49 Large Platelets Rare 12/30/21 04:49 Giant Platelets Not Reportable 12/30/21 04:49 Platelet Satelliting Not Reportable 12/30/21 04:49 Plt Morphology Comment Not Reportable 12/30/21 04:49 RBC Morphology Not Reportable 12/30/21 04:49 Dimorphic RBCs Not Reportable 12/30/21 04:49 Polychromasia Not Reportable 12/30/21 04:49 Hypochromasia Not Reportable 12/30/21 04:49 Poikilocytosis Not Reportable 12/30/21 04:49 Anisocytosis Rare 12/30/21 04:49 Microcytosis Not Reportable 12/30/21 04:49 Macrocytosis Rare 12/30/21 04:49 Spherocytes Not Reportable 12/30/21 04:49 Pappenheimer Bodies Not Reportable 12/30/21 04:49 Sickle Cells Not Reportable 12/30/21 04:49 Target Cells Not Reportable 12/30/21 04:49 Tear Drop Cells Not Reportable 12/30/21 04:49 Ovalocytes Not Reportable 12/30/21 04:49 Helmet Cells Not Reportable 12/30/21 04:49 [place] Bodies Not Reportable 12/30/21 04:49 [place] Rings Not Reportable 12/30/21 04:49 [place] Cells Not Reportable 12/30/21 04:49 Bite Cells Not Reportable 12/30/21 04:49 Crenated Cell Not Reportable 12/30/21 04:49 Elliptocytes Not Reportable 12/30/21 04:49 Acanthocytes (Spur) Not Reportable 12/30/21 04:49 Rouleaux Not Reportable 12/30/21 04:49 Hemoglobin C Crystals Not Reportable 12/30/21 04:49 Schistocytes Not Reportable 12/30/21 04:49 Malaria parasites Not Reportable 12/30/21 04:49 [place] Bodies Not Reportable 12/30/21 04:49 Hem Pathologist Commnt No 12/30/21 04:49 PT 13.4 Sec. (12.2-14.9) 12/21/21 13:30 INR 0.92 (0.87-1.13) 12/21/21 13:30 APTT 25.8 Sec. (24.2-36.6) 12/21/21 13:30 Sodium 136 mmol/L (137-145) L 01/01/22 05:17 Potassium 3.5 mmol/L (3.6-5.0) L 01/01/22 05:17 Chloride 98.9 mmol/L (98-107) 01/01/22 05:17 Carbon Dioxide 26 mmol/L (22-30) 01/01/22 05:17 Anion Gap 15 mmol/L 01/01/22 05:17 BUN 6 mg/dL (9-20) L 01/01/22 05:17 Creatinine 0.5 mg/dL (0.8-1.3) L 01/01/22 05:17 Estimated GFR > 60 ml/min 01/01/22 05:17 BUN/Creatinine Ratio 12 % 01/01/22 05:17 Glucose 98 mg/dL (75-100) 01/01/22 05:17 Lactic Acid 1.40 mmol/L (0.7-2.0) 12/21/21 13:30 Calcium 8.3 mg/dL (8.4-10.2) L 01/01/22 05:17 Phosphorus 2.80 mg/dL (2.5-4.5) 12/24/21 05:17 Magnesium 2.20 mg/dL (1.7-2.3) 12/24/21 05:17 Total Bilirubin 0.80 mg/dL (0.1-1.2) 01/01/22 05:17 Direct Bilirubin < 0.2 mg/dL (0-0.2) 01/01/22 05:17 Indirect Bilirubin 0.6 mg/dL 01/01/22 05:17 AST 86 units/L (5-40) H 01/01/22 05:17 ALT 153 units/L (7-56) H 01/01/22 05:17 Alkaline Phosphatase 70 units/L (35-129) 01/01/22 05:17 Ammonia 37.0 umol/L (25-60) 12/23/21 04:49 Total Creatine Kinase 3203 units/L (55-170) H 01/01/22 05:17 Total Protein 5.1 g/dL (6.3-8.2) L 01/01/22 05:17 Albumin 2.3 g/dL (3.9-5) L 01/01/22 05:17 Albumin/Globulin Ratio 0.8 % 01/01/22 05:17 Amylase 25 units/L (27-131) L 12/23/21 04:49 Lipase 10 units/L (13-60) L 12/23/21 04:49 Coronavirus (PCR) Negative (Negative) 12/22/21 11:40 Hepatitis A IgM Ab Nonreactive (NonReactive) 12/21/21 13:30 Hep Bs Antigen Non-reactive (Negative) 12/21/21 13:30 Hep B Core IgM Ab Non-reactive (NonReactive) 12/21/21 13:30 Hepatitis C Antibody Non-reactive (NonReactive) 12/21/21 13:30 HIV 1&2 Antibody Rapid Non react (Non React) 12/22/21 16:42 HIV P24 Antigen Non react (Non React) 12/22/21 16:42 Microbiology: Microbiology 12/28/21 Unknown Leg - Left Surgical Biopsy Culture - Preliminary Kaur/IV: Voiding Method Urinal Active Medications - Current Medications Current Medications: Generic Name Dose Route Start Last Admin Trade Name Freq PRN Reason Stop Dose Admin Albuterol 2.5 mg 12/21/21 06:15 Albuterol 2.5 Mg/3 Ml Nebu IH Q3HRT PRN Shortness Of Breath Albuterol/Ipratropium 1 ampul 12/22/21 08:00 01/01/22 07:53 Ipratropium/Albuterol Sulfate 3 Ml Ampul.Neb IH 1 ampul BIDRT VLADIMIR Administration Diphenhydramine HCl 25 mg 12/21/21 06:24 12/26/21 18:49 Diphenhydramine 50 Mg/Ml Vial IV 25 mg Q6H PRN Administration Skin Irritation Docusate Sodium 100 mg 12/23/21 22:00 01/01/22 09:32 Docusate Sodium 100 Mg Cap PO 100 mg BID VLADIMIR Administration Famotidine 20 mg 12/26/21 10:00 01/01/22 09:32 Famotidine 20 Mg Tab PO 20 mg BID VLADIMIR Administration Gabapentin 100 mg 12/31/21 06:00 01/01/22 05:23 Gabapentin 100 Mg Cap PO 01/04/22 14:01 100 mg 0600,1400 VLADIMIR Administration Gabapentin 300 mg 12/31/21 22:00 12/31/21 21:14 Gabapentin 300 Mg Cap PO 01/04/22 22:01 300 mg QHS VLADIMIR Administration Gabapentin 300 mg 01/05/22 08:00 Gabapentin 300 Mg Cap PO TID@0800,1600,2200 VLADIMIR Heparin Sodium (Porcine) 5,000 unit 12/21/21 10:00 01/01/22 09:32 Heparin 5,000 Unit/1 Ml Vial SUB-Q 5,000 unit Q12HR VLADIMIR Administration Hydralazine HCl 10 mg 12/22/21 18:31 12/22/21 18:50 Hydralazine 20 Mg/1 Ml Inj IV 10 mg Q3HR PRN Administration Hypertension Hydromorphone HCl 0.5 mg 12/21/21 06:15 12/30/21 01:08 Hydromorphone 1 Mg/1 Ml Inj IV 0.5 mg Q3H PRN Administration Pain , Severe (7-10) Sodium Chloride 1,000 mls @ 200 mls/hr 12/22/21 18:30 01/01/22 05:23 Nacl 0.9% 1000 Ml IV 200 mls/hr DIRECT VLADIMIR Administration Morphine Sulfate 2 mg 12/21/21 06:15 01/01/22 05:27 Morphine 2 Mg/1 Ml Inj IV 2 mg Q4H PRN Administration Pain, Moderate (4-6) Ondansetron HCl 4 mg 12/21/21 06:15 Ondansetron 4 Mg/2 Ml Inj IV Q8H PRN Nausea And Vomiting Sodium Chloride 10 ml 12/21/21 10:00 01/01/22 09:32 Sodium Chloride 0.9% 10 Ml Flush Syringe IV 10 ml BID VLADIMIR Administration Sodium Chloride 10 ml 12/21/21 06:15 12/30/21 01:09 Sodium Chloride 0.9% 10 Ml Flush Syringe IV 10 ml PRN PRN Administration LINE FLUSH Valsartan 160 mg 12/22/21 22:00 01/01/22 09:32 Valsartan 160mg Tab PO 160 mg DAILY VLADIMIR Administration Nutrition/Malnutrition Assess - Dietary Evaluation Nutrition/Malnutrition Findings: Nutrition Notes Start: 12/28/21 16:45 Freq: Status: Active Protocol: Document 12/30/21 12:23 OPAL (Rec: 12/30/21 12:43 OPAL [id number]) Nutrition Notes Initial or Follow up Brief Note Current Diagnosis Hypertension Other Pertinent Diagnosis Rabdomyolysis, Liver Failure, s/p L-LE 4 Compartment Fasciotomy w/Debridem. Current Diet Regular Diet + Dietary Supplements. (since B 12/29). Height 5 ft 6 in Weight 86.183 kg [place] Body Weight (kg) 64.54 BMI 30.7 Weight change and time frame No bnody weight change reporterd in 2 days. Weight Status Obese Subjective/Other Information RD consult for routine F/U on dietary advancement. Pt is now on PO diet, but no reports available on Pt's PO intake of meals at the time, will assess at F/U. Pt is on Room Air, O2 saturation @ 97%, according to Physical Assessment History notes. Procedure on 12/28: Excisinal debridement of muscle and soft tissue from L-LE wound, and woundVAC placement; Leg fasciotomy lateral and medial incisions, Well tolerated, according to Operative Report. Percent of energy/protein needs met: Prescribed Regular Diet provides for energy/protein needs (2,289 Kcal/89 g) during LOS; additionally, Dietary Supplements will support wound healing processes with 190 Kcal and 5 g of protein. #1 Nutrition Diagnosis Increased nutrient needs ( specify in comment below) Comments: Protein to support wound healing processes. Diagnosis Progress(for reassessment Continues documentation) Is patient on ventilator? No Is Patient Ambulatory and/or Out of Bed No REE-([facility]-confined to bed) 2083.920 Kcal/Kg value to use for calculation 19 Approximate Energy Requirements Using 1637 kcal/Kg Calculation Used for Recommendations Kcal/kg Additional Notes Protein: 1.25-1.5 g/Kg AdjBW; 85-114 g/day. Fluids: 1 ml/Kcal, or as per MD. Nutrition Intervention Change Diet Order: Continue Regular Diet. Add Supplement/Snack (indicate name/kcal Continue 28.8 g pkt Calvin; BID /protein ) . Provides kCal: 190 Provides Protein (gm) 5 Goal #1 Support, through dietary supplementation, wound healing processes during LOS. Goal #2 Adjust the dietary intervention to better serve Pt's needs and clinical conditions during LOS. Goal #3 Maintain body weight within +/ -3% of admission body weight during LOS. Follow-Up By: 01/06/22 Additional Comments Continue monitoring food tolerance, %PO intake of meals , and BM.
[2022-01-01] MEDS: GABAPENTIN 300 MG CAP PO SCH (21:22)
[2022-01-02] MEDS: HYDROmorphone 1 MG/1 ML INJ IV PRN (04:15)
[2022-01-02] MEDS: SODIUM CHLORIDE 0.9% 1000 ML 1,000 ML IV SCH (04:20)
[2022-01-02] MEDS: GABAPENTIN 100 MG CAP PO SCH ×2 (05:17→13:40)
[2022-01-02 06:15] LABS: Alanine Aminotransferase 134 units/L (7-56); Albumin 2.2 g/dL (3.9-5); Blood Urea Nitrogen 6 mg/dL (9-20); Calcium 8.1 mg/dL (8.4-10.2); Hemolysis Index 3
[2022-01-02 06:25] LABS: BUN/Creatinine Ratio 12
[2022-01-02 06:26] LABS: Bilirubin,Direct < 0.2 mg/dL (0-0.2)
[2022-01-02] MEDS: IPRATROPIUM/ALBUTEROL SULFATE 3 ML AMPUL.NEB IH SCH ×2 (08:18→21:24)
[2022-01-02] MEDS: HEPARIN 5,000 UNIT/1 ML VIAL SUB-Q SCH ×2 (10:17→21:08)
[2022-01-02] MEDS: DOCUSATE SODIUM 100 MG CAP PO SCH ×2 (10:17→21:09)
[2022-01-02] MEDS: FAMOTIDINE 20 MG TAB PO SCH ×2 (10:17→21:09)
[2022-01-02] MEDS: VALSARTAN 160MG TAB PO SCH (10:17)
[2022-01-02] MEDS ORDERED: SODIUM CHLORIDE 0.9% 1000 ML IV SOLN IV SCH (11:00)
--- NOTE | 2022-01-02 11:00 | Progress Note ---
Assessment and Plan Assessment and plan: This is a 36 year old transgendered female undergoing gender transformation with silicone injection to buttocks ([place] 2016) and breast implants, heavy drinker on the weekends (bottle of vodka) who presented to [facility] on 12/21 because of adverse drug reaction after reportedly self administration of rocephin and PCN for sore throat. Patient reportedly collapsed while checking in to the emergency department, has complains of severe 10 out of 10 pain in left thigh and has noticeable mottling of skin in thigh and left lower abdomen. Patient underwent a CT of the left leg which showed possible cellulitis with no drainable fluid collection and was started on empiric antibiotics. Patient admitted to the hospital service with diagnosis of acute liver failure, rhabdomyolysis, s/p 4 compartment fasciotomy to left lower extremity Acute liver failure -GI consulted, appreciate recommendations -Per GI: Suspect due to rhabdomyolysis given elevated creatinine kinase levels -If ALT continues to rise recommend MRCP -Abdominal ultrasound showed mild diffuse biliary dilation, obstruction to lesion of the distal common bile duct cannot be excluded consider MRCP, no evidence of gallstones within the gallbladder -PPI -Regular diet -BR: colace -Trend LFTs Compartment syndrome to LLE -Vascular surgery consulted, appreciate recommendations -s/p self admin of IM abx to midthigh -c/o pain, decreased sensation, pulses were dopplarable, paralysis, mottled skin -s/p 4 compartment tracheotomy on 12/21 with vascular surgery -Bilateral lower extremity Doppler ultrasound showed no DVT -Left lower extremity CT with contrast showed appearance of posterior soft tissue complex cellulitis with small subcutaneous lymph nodes, no drainable fluid collections present, contusion could have similar appearance -Bilateral lower extremity arterial duplex showed no significant lower extremity peripheral artery disease -Normal ABIs Peripheral neuropathy -Avoid delirium -Reorientation as needed -Maintain sleep-wake cycle -As needed analgesia -Neurology consulted, appreciate recommendations -Gabapentin HTN -Blood pressure monitoring per protocol -Valsartan -PRN hydralazine Rhabdomyolysis acute kidney injury with vasomotor nephropathy now resolved -Nephrology consulted, appreciate recommendations -Strict intake and output -Renally dose medications -Avoid nephrotoxic medications -MIVF -Sodium bicarb -Trend BMP, CK Hospital course to date: 12/21: Venous ultrasound shows no DVT, Vascular surgery consulted who performed a fasciotomy and plan to transfer patient to [facility] post intervention. Neurology consulted 12/22: Transfer to ICU, GI and neurology consulted. 12/23: Patient will be transferred back to the floor from ICU. Her liver enzymes and creatinine are trending down. Will be started on gabapentin per neurology recommendations and antibiotics discontinued. 12/24: Continue supportive care. CPK slowly improving. Vascular plans for closure of fasciotomy early next week. PT OT evaluation and treatment closure done. Continue wound management. No evidence of withdrawal noted at this time. Continue to monitor LFTs which are also slightly improving. Plan discussed in detail with the patient who verbalized understanding 12/25: Patient seen and examined clinically stable continues to show some improvement. Closure of fasciotomy planned for tomorrow. Renal function is improving. CK ordered and pending 12/26: Patient seen and examined, wbc mildly elevated likely secondary to steroids, will change to po for two additional days and stop, benefit probably already achieved, continue wound dressing, sensory function improved, awaiting wound vac and closure. Patient advised on clinically progress. 12/27: Patient seen and examined awaiting her vascular surgery for closure of fasciotomy. CK is decreasing less than 9000 today. We will continue aggressive IV fluids until we have the resolution below 5000. LFTs on the downward trend also. Leukocytosis appears to have peaked steroids was changed to oral for 2 additional days today is 1 of 2.. Plan of care discussed in detail with the patient who verbalized understanding. 12/28: Left lower extremity compartment syndrome status post fasciotomies. Cau se is still unclear and may represent some allergic reaction. Motor function is unchanged from original exam. Sensory function has improved with full sensation of the foot.vascular surgery to place wound vacs on the leg today. CK improved to the 8000 range today 12/29: Patient underwent excisional debridement of muscle and soft tissue from left leg wound yesterday. Patient also had wound VAC placement left leg fasciotomy incisions. The patient had moderate amount of superficial necrotic muscle in the anterior lateral compartments with minimal amount of superficial necrotic muscle in the posterior compartment. Follow-up culture results. CK levels have improved to 6900 range. AST/ALT continue to trend downward. 12/30: I discussed the case with Dr. Lopez who recommends home wound VAC as well as physical therapy. I also discussed these needs with case management who was attempting to arrange for discharge planning. CK continues to improve with levels in the 4000 range. 12/31: Still awaiting for home wound VAC arrangements to be made. Leukocytosis is much improved down to 13,900 today. LFTs continue to trend down to normal range. CK levels still in the 4000 range. Nephrology has signed off. Anticipate discharge later today or in a.m. 01/01: Still awaiting for home wound VAC arrangements to be made. Laboratories continue to include including LFTs, CK and leukocytosis. 01/02: Still awaiting for home wound VAC arrangements to be made. History Interval history: No new issues overnight Hospitalist Physical - Constitutional Vitals: Temp Pulse Resp BP Pulse Ox 98.5 F 93 H 18 120/70 97 01/02/22 06:22 01/02/22 08:19 01/02/22 08:19 01/02/22 10:17 01/02/22 06:22 General appearance: Present: no acute distress - EENT Eyes: Present: PERRL, EOM intact ENT: hearing intact, clear oral mucosa, dentition normal - Neck Neck: Present: supple, normal ROM - Respiratory Respiratory effort: normal Respiratory: bilateral: CTA - Cardiovascular Rhythm: regular Heart Sounds: Present: S1 & S2. Absent: gallop, rub - Extremities Extremities: no ischemia, No edema, Full ROM - Abdominal General gastrointestinal: soft, non-tender, non-distended, normal bowel sounds - Integumentary Integumentary: Present: clear, warm, dry - Neurologic Neurologic: CNII-XII intact, moves all extremities Results - Labs CBC & Chem 7: 01/01/22 05:17 01/02/22 05:07 Labs: Laboratory Last Values WBC 13.6 K/mm3 (4.5-11.0) H 01/01/22 05:17 RBC 3.55 M/mm3 (3.65-5.03) L 01/01/22 05:17 Hgb 11.6 gm/dl (11.8-15.2) L 01/01/22 05:17 Hct 35.0 % (35.5-45.6) L 01/01/22 05:17 MCV 99 fl (84-94) H 01/01/22 05:17 MCH 33 pg (28-32) H 01/01/22 05:17 MCHC 33 % (32-34) 01/01/22 05:17 RDW 13.2 % (13.2-15.2) 01/01/22 05:17 Plt Count 455 K/mm3 (140-440) H 01/01/22 05:17 Lymph % (Auto) 11.3 % (13.4-35.0) L 01/01/22 05:17 [place] % (Auto) 7.6 % (0.0-7.3) H 01/01/22 05:17 Eos % (Auto) 0.3 % (0.0-4.3) 01/01/22 05:17 Baso % (Auto) 0.3 % (0.0-1.8) 01/01/22 05:17 Lymph # (Auto) 1.5 K/mm3 (1.2-5.4) 01/01/22 05:17 [place] # (Auto) 1.0 K/mm3 (0.0-0.8) H 01/01/22 05:17 Eos # (Auto) 0.0 K/mm3 (0.0-0.4) 01/01/22 05:17 Baso # (Auto) 0.0 K/mm3 (0.0-0.1) 01/01/22 05:17 Add Manual Diff Complete 12/30/21 04:49 Total Counted 100 12/30/21 04:49 Seg Neutrophils % 80.5 % (40.0-70.0) H 01/01/22 05:17 Seg Neuts % (Manual) 83.0 % (40.0-70.0) H 12/30/21 04:49 Band Neutrophils % 2.0 % 12/30/21 04:49 Lymphocytes % (Manual) 5.0 % (13.4-35.0) L 12/30/21 04:49 Reactive Lymphs % (Man) 0 % 12/30/21 04:49 Monocytes % (Manual) 8.0 % (0.0-7.3) H 12/30/21 04:49 Eosinophils % (Manual) 0 % (0.0-4.3) 12/30/21 04:49 Basophils % (Manual) 0 % (0.0-1.8) 12/30/21 04:49 Metamyelocytes % 2.0 % 12/30/21 04:49 Myelocytes % 0 % 12/30/21 04:49 Promyelocytes % 0 % 12/30/21 04:49 Blast Cells % 0 % 12/30/21 04:49 Nucleated RBC % Not Reportable 12/30/21 04:49 Seg Neutrophils # 11.0 K/mm3 (1.8-7.7) H 01/01/22 05:17 Seg Neutrophils # Man 17.1 K/mm3 (1.8-7.7) H 12/30/21 04:49 Band Neutrophils # 0.4 K/mm3 12/30/21 04:49 Lymphocytes # (Manual) 1.0 K/mm3 (1.2-5.4) L 12/30/21 04:49 Abs React Lymphs (Man) 0.0 K/mm3 12/30/21 04:49 Monocytes # (Manual) 1.6 K/mm3 (0.0-0.8) H 12/30/21 04:49 Eosinophils # (Manual) 0.0 K/mm3 (0.0-0.4) 12/30/21 04:49 Basophils # (Manual) 0.0 K/mm3 (0.0-0.1) 12/30/21 04:49 Metamyelocytes # 0.4 K/mm3 12/30/21 04:49 Myelocytes # 0.0 K/mm3 12/30/21 04:49 Promyelocytes # 0.0 K/mm3 12/30/21 04:49 Blast Cells # 0.0 K/mm3 12/30/21 04:49 WBC Morphology Not Reportable 12/30/21 04:49 Hypersegmented Neuts Not Reportable 12/30/21 04:49 Hyposegmented Neuts Rare 12/30/21 04:49 Hypogranular Neuts Not Reportable 12/30/21 04:49 Smudge Cells Not Reportable 12/30/21 04:49 Toxic Granulation Not Reportable 12/30/21 04:49 Toxic Vacuolation Not Reportable 12/30/21 04:49 Dohle Bodies Not Reportable 12/30/21 04:49 Pelger-Huet Anomaly Not Reportable 12/30/21 04:49 [place] Rods Not Reportable 12/30/21 04:49 Platelet Estimate Consistent w auto 12/30/21 04:49 Clumped Platelets Not Reportable 12/30/21 04:49 Plt Clumps, EDTA Not Reportable 12/30/21 04:49 Large Platelets Rare 12/30/21 04:49 Giant Platelets Not Reportable 12/30/21 04:49 Platelet Satelliting Not Reportable 12/30/21 04:49 Plt Morphology Comment Not Reportable 12/30/21 04:49 RBC Morphology Not Reportable 12/30/21 04:49 Dimorphic RBCs Not Reportable 12/30/21 04:49 Polychromasia Not Reportable 12/30/21 04:49 Hypochromasia Not Reportable 12/30/21 04:49 Poikilocytosis Not Reportable 12/30/21 04:49 Anisocytosis Rare 12/30/21 04:49 Microcytosis Not Reportable 12/30/21 04:49 Macrocytosis Rare 12/30/21 04:49 Spherocytes Not Reportable 12/30/21 04:49 Pappenheimer Bodies Not Reportable 12/30/21 04:49 Sickle Cells Not Reportable 12/30/21 04:49 Target Cells Not Reportable 12/30/21 04:49 Tear Drop Cells Not Reportable 12/30/21 04:49 Ovalocytes Not Reportable 12/30/21 04:49 Helmet Cells Not Reportable 12/30/21 04:49 [place] Bodies Not Reportable 12/30/21 04:49 [place] Rings Not Reportable 12/30/21 04:49 [place] Cells Not Reportable 12/30/21 04:49 Bite Cells Not Reportable 12/30/21 04:49 Crenated Cell Not Reportable 12/30/21 04:49 Elliptocytes Not Reportable 12/30/21 04:49 Acanthocytes (Spur) Not Reportable 12/30/21 04:49 Rouleaux Not Reportable 12/30/21 04:49 Hemoglobin C Crystals Not Reportable 12/30/21 04:49 Schistocytes Not Reportable 12/30/21 04:49 Malaria parasites Not Reportable 12/30/21 04:49 [place] Bodies Not Reportable 12/30/21 04:49 Hem Pathologist Commnt No 12/30/21 04:49 PT 13.4 Sec. (12.2-14.9) 12/21/21 13:30 INR 0.92 (0.87-1.13) 12/21/21 13:30 APTT 25.8 Sec. (24.2-36.6) 12/21/21 13:30 Sodium 135 mmol/L (137-145) L 01/02/22 05:07 Potassium 3.7 mmol/L (3.6-5.0) 01/02/22 05:07 Chloride 100.1 mmol/L (98-107) 01/02/22 05:07 Carbon Dioxide 26 mmol/L (22-30) 01/02/22 05:07 Anion Gap 13 mmol/L 01/02/22 05:07 BUN 6 mg/dL (9-20) L 01/02/22 05:07 Creatinine 0.5 mg/dL (0.8-1.3) L 01/02/22 05:07 Estimated GFR > 60 ml/min 01/02/22 05:07 BUN/Creatinine Ratio 12 % 01/02/22 05:07 Glucose 113 mg/dL (75-100) H 01/02/22 05:07 Lactic Acid 1.40 mmol/L (0.7-2.0) 12/21/21 13:30 Calcium 8.1 mg/dL (8.4-10.2) L 01/02/22 05:07 Phosphorus 2.80 mg/dL (2.5-4.5) 12/24/21 05:17 Magnesium 2.20 mg/dL (1.7-2.3) 12/24/21 05:17 Total Bilirubin 0.60 mg/dL (0.1-1.2) 01/02/22 05:07 Direct Bilirubin < 0.2 mg/dL (0-0.2) 01/02/22 05:07 Indirect Bilirubin 0.4 mg/dL 01/02/22 05:07 AST 73 units/L (5-40) H 01/02/22 05:07 ALT 134 units/L (7-56) H 01/02/22 05:07 Alkaline Phosphatase 66 units/L (35-129) 01/02/22 05:07 Ammonia 37.0 umol/L (25-60) 12/23/21 04:49 Total Creatine Kinase 2431 units/L (55-170) H 01/02/22 05:07 Total Protein 5.0 g/dL (6.3-8.2) L 01/02/22 05:07 Albumin 2.2 g/dL (3.9-5) L 01/02/22 05:07 Albumin/Globulin Ratio 0.8 % 01/02/22 05:07 Amylase 25 units/L (27-131) L 12/23/21 04:49 Lipase 10 units/L (13-60) L 12/23/21 04:49 Coronavirus (PCR) Negative (Negative) 12/22/21 11:40 Hepatitis A IgM Ab Nonreactive (NonReactive) 12/21/21 13:30 Hep Bs Antigen Non-reactive (Negative) 12/21/21 13:30 Hep B Core IgM Ab Non-reactive (NonReactive) 12/21/21 13:30 Hepatitis C Antibody Non-reactive (NonReactive) 12/21/21 13:30 HIV 1&2 Antibody Rapid Non react (Non React) 12/22/21 16:42 HIV P24 Antigen Non react (Non React) 12/22/21 16:42 Microbiology: Microbiology 12/28/21 Unknown Leg - Left Surgical Biopsy Culture - Preliminary Bacillus Species Kaur/IV: Voiding Method Urinal Active Medications - Current Medications Current Medications: Generic Name Dose Route Start Last Admin Trade Name Freq PRN Reason Stop Dose Admin Albuterol 2.5 mg 12/21/21 06:15 Albuterol 2.5 Mg/3 Ml Nebu IH Q3HRT PRN Shortness Of Breath Albuterol/Ipratropium 1 ampul 12/22/21 08:00 01/02/22 08:18 Ipratropium/Albuterol Sulfate 3 Ml Ampul.Neb IH 1 ampul BIDRT VLADIMIR Administration Diphenhydramine HCl 25 mg 12/21/21 06:24 12/26/21 18:49 Diphenhydramine 50 Mg/Ml Vial IV 25 mg Q6H PRN Administration Skin Irritation Docusate Sodium 100 mg 12/23/21 22:00 01/02/22 10:17 Docusate Sodium 100 Mg Cap PO 100 mg BID VLADIMIR Administration Famotidine 20 mg 12/26/21 10:00 01/02/22 10:17 Famotidine 20 Mg Tab PO 20 mg BID VLADIMIR Administration Gabapentin 100 mg 12/31/21 06:00 01/02/22 05:17 Gabapentin 100 Mg Cap PO 01/04/22 14:01 100 mg 0600,1400 VLADIMIR Administration Gabapentin 300 mg 12/31/21 22:00 01/01/22 21:22 Gabapentin 300 Mg Cap PO 01/04/22 22:01 300 mg QHS VLADIMIR Administration Gabapentin 300 mg 01/05/22 08:00 Gabapentin 300 Mg Cap PO TID@0800,1600,2200 VLADIMIR Heparin Sodium (Porcine) 5,000 unit 12/21/21 10:00 01/02/22 10:17 Heparin 5,000 Unit/1 Ml Vial SUB-Q 5,000 unit Q12HR VLADIMIR Administration Hydralazine HCl 10 mg 12/22/21 18:31 12/22/21 18:50 Hydralazine 20 Mg/1 Ml Inj IV 10 mg Q3HR PRN Administration Hypertension Hydromorphone HCl 0.5 mg 12/21/21 06:15 01/02/22 04:15 Hydromorphone 1 Mg/1 Ml Inj IV 0.5 mg Q3H PRN Administration Pain , Severe (7-10) Sodium Chloride 1,000 mls @ 200 mls/hr 12/22/21 18:30 01/02/22 04:20 Nacl 0.9% 1000 Ml IV 200 mls/hr DIRECT VLADIMIR Administration Morphine Sulfate 2 mg 12/21/21 06:15 01/01/22 19:52 Morphine 2 Mg/1 Ml Inj IV 2 mg Q4H PRN Administration Pain, Moderate (4-6) Ondansetron HCl 4 mg 12/21/21 06:15 Ondansetron 4 Mg/2 Ml Inj IV Q8H PRN Nausea And Vomiting Sodium Chloride 10 ml 12/21/21 10:00 01/02/22 10:17 Sodium Chloride 0.9% 10 Ml Flush Syringe IV 10 ml BID VLADIMIR Administration Sodium Chloride 10 ml 12/21/21 06:15 12/30/21 01:09 Sodium Chloride 0.9% 10 Ml Flush Syringe IV 10 ml PRN PRN Administration LINE FLUSH Sodium Chloride 75 ml 01/02/22 11:00 Sodium Chloride 0.9% 100 Ml Ivpb IV DIRECT VLADIMIR Valsartan 160 mg 12/22/21 22:00 01/02/22 10:17 Valsartan 160mg Tab PO 160 mg DAILY VLADIMIR Administration Nutrition/Malnutrition Assess - Dietary Evaluation Nutrition/Malnutrition Findings: Nutrition Notes Start: 12/28/21 16:45 Freq: Status: Active Protocol: Document 12/30/21 12:23 OPAL (Rec: 12/30/21 12:43 OPAL [id number]) Nutrition Notes Initial or Follow up Brief Note Current Diagnosis Hypertension Other Pertinent Diagnosis Rabdomyolysis, Liver Failure, s/p L-LE 4 Compartment Fasciotomy w/Debridem. Current Diet Regular Diet + Dietary Supplements. (since B 12/29). Height 5 ft 6 in Weight 86.183 kg [place] Body Weight (kg) 64.54 BMI 30.7 Weight change and time frame No bnody weight change reporterd in 2 days. Weight Status Obese Subjective/Other Information RD consult for routine F/U on dietary advancement. Pt is now on PO diet, but no reports available on Pt's PO intake of meals at the time, will assess at F/U. Pt is on Room Air, O2 saturation @ 97%, according to Physical Assessment History notes. Procedure on 12/28: Excisinal debridement of muscle and soft tissue from L-LE wound, and woundVAC placement; Leg fasciotomy lateral and medial incisions, Well tolerated, according to Operative Report. Percent of energy/protein needs met: Prescribed Regular Diet provides for energy/protein needs (2,289 Kcal/89 g) during LOS; additionally, Dietary Supplements will support wound healing processes with 190 Kcal and 5 g of protein. #1 Nutrition Diagnosis Increased nutrient needs ( specify in comment below) Comments: Protein to support wound healing processes. Diagnosis Progress(for reassessment Continues documentation) Is patient on ventilator? No Is Patient Ambulatory and/or Out of Bed No REE-([facility]-confined to bed) 2083.920 Kcal/Kg value to use for calculation 19 Approximate Energy Requirements Using 1637 kcal/Kg Calculation Used for Recommendations Kcal/kg Additional Notes Protein: 1.25-1.5 g/Kg AdjBW; 85-114 g/day. Fluids: 1 ml/Kcal, or as per MD. Nutrition Intervention Change Diet Order: Continue Regular Diet. Add Supplement/Snack (indicate name/kcal Continue 28.8 g pkt Calvin; BID /protein ) . Provides kCal: 190 Provides Protein (gm) 5 Goal #1 Support, through dietary supplementation, wound healing processes during LOS. Goal #2 Adjust the dietary intervention to better serve Pt's needs and clinical conditions during LOS. Goal #3 Maintain body weight within +/ -3% of admission body weight during LOS. Follow-Up By: 01/06/22 Additional Comments Continue monitoring food tolerance, %PO intake of meals , and BM.
[2022-01-02] MEDS: MORPHINE 2 MG/1 ML INJ IV PRN (14:39)
[2022-01-02] MEDS: GABAPENTIN 300 MG CAP PO SCH (21:09)
[2022-01-03] MEDS ORDERED: SODIUM CHLORIDE 0.45% 1000 ML 1,000 ML IV SCH (01:00)
[2022-01-03] MEDS: SODIUM CHLORIDE 0.9% 1000 ML 1,000 ML IV SCH ×2 (01:09→13:08)
[2022-01-03] MEDS: HYDROmorphone 1 MG/1 ML INJ IV PRN (03:52)
[2022-01-03] MEDS: GABAPENTIN 100 MG CAP PO SCH ×2 (06:03→13:06)
[2022-01-03] MEDS: IPRATROPIUM/ALBUTEROL SULFATE 3 ML AMPUL.NEB IH SCH ×2 (08:18→21:09)
[2022-01-03] MEDS: HEPARIN 5,000 UNIT/1 ML VIAL SUB-Q SCH ×2 (10:38→21:33)
[2022-01-03] MEDS: ONDANSETRON 4 MG/2 ML INJ IV PRN (10:38)
[2022-01-03] MEDS: MORPHINE 2 MG/1 ML INJ IV PRN ×3 (10:39→17:50)
[2022-01-03] MEDS: VALSARTAN 160MG TAB PO SCH (10:40)
[2022-01-03] MEDS: FAMOTIDINE 20 MG TAB PO SCH ×2 (10:40→21:33)
[2022-01-03] MEDS: DOCUSATE SODIUM 100 MG CAP PO SCH ×2 (10:40→21:33)
--- NOTE | 2022-01-03 11:11 | Progress Note ---
Assessment and Plan Assessment and plan: This is a 36 year old transgendered female undergoing gender transformation with silicone injection to buttocks ([place] 2016) and breast implants, heavy drinker on the weekends (bottle of vodka) who presented to [facility] on 12/21 because of adverse drug reaction after reportedly self administration of rocephin and PCN for sore throat. Patient reportedly collapsed while checking in to the emergency department, has complains of severe 10 out of 10 pain in left thigh and has noticeable mottling of skin in thigh and left lower abdomen. Patient underwent a CT of the left leg which showed possible cellulitis with no drainable fluid collection and was started on empiric antibiotics. Patient admitted to the hospital service with diagnosis of acute liver failure, rhabdomyolysis, s/p 4 compartment fasciotomy to left lower extremity Acute liver failure -GI consulted, appreciate recommendations -Per GI: Suspect due to rhabdomyolysis given elevated creatinine kinase levels -If ALT continues to rise recommend MRCP -Abdominal ultrasound showed mild diffuse biliary dilation, obstruction to lesion of the distal common bile duct cannot be excluded consider MRCP, no evidence of gallstones within the gallbladder -PPI -Regular diet -BR: colace -Trend LFTs Compartment syndrome to LLE -Vascular surgery consulted, appreciate recommendations -s/p self admin of IM abx to midthigh -c/o pain, decreased sensation, pulses were dopplarable, paralysis, mottled skin -s/p 4 compartment tracheotomy on 12/21 with vascular surgery -Bilateral lower extremity Doppler ultrasound showed no DVT -Left lower extremity CT with contrast showed appearance of posterior soft tissue complex cellulitis with small subcutaneous lymph nodes, no drainable fluid collections present, contusion could have similar appearance -Bilateral lower extremity arterial duplex showed no significant lower extremity peripheral artery disease -Normal ABIs Peripheral neuropathy -Avoid delirium -Reorientation as needed -Maintain sleep-wake cycle -As needed analgesia -Neurology consulted, appreciate recommendations -Gabapentin HTN -Blood pressure monitoring per protocol -Valsartan -PRN hydralazine Rhabdomyolysis acute kidney injury with vasomotor nephropathy now resolved -Nephrology consulted, appreciate recommendations -Strict intake and output -Renally dose medications -Avoid nephrotoxic medications -MIVF -Sodium bicarb -Trend BMP, CK Hospital course to date: 12/21: Venous ultrasound shows no DVT, Vascular surgery consulted who performed a fasciotomy and plan to transfer patient to [facility] post intervention. Neurology consulted 12/22: Transfer to ICU, GI and neurology consulted. 12/23: Patient will be transferred back to the floor from ICU. Her liver enzymes and creatinine are trending down. Will be started on gabapentin per neurology recommendations and antibiotics discontinued. 12/24: Continue supportive care. CPK slowly improving. Vascular plans for closure of fasciotomy early next week. PT OT evaluation and treatment closure done. Continue wound management. No evidence of withdrawal noted at this time. Continue to monitor LFTs which are also slightly improving. Plan discussed in detail with the patient who verbalized understanding 12/25: Patient seen and examined clinically stable continues to show some improvement. Closure of fasciotomy planned for tomorrow. Renal function is improving. CK ordered and pending 12/26: Patient seen and examined, wbc mildly elevated likely secondary to steroids, will change to po for two additional days and stop, benefit probably already achieved, continue wound dressing, sensory function improved, awaiting wound vac and closure. Patient advised on clinically progress. 12/27: Patient seen and examined awaiting her vascular surgery for closure of fasciotomy. CK is decreasing less than 9000 today. We will continue aggressive IV fluids until we have the resolution below 5000. LFTs on the downward trend also. Leukocytosis appears to have peaked steroids was changed to oral for 2 additional days today is 1 of 2.. Plan of care discussed in detail with the patient who verbalized understanding. 12/28: Left lower extremity compartment syndrome status post fasciotomies. Cau se is still unclear and may represent some allergic reaction. Motor function is unchanged from original exam. Sensory function has improved with full sensation of the foot.vascular surgery to place wound vacs on the leg today. CK improved to the 8000 range today 12/29: Patient underwent excisional debridement of muscle and soft tissue from left leg wound yesterday. Patient also had wound VAC placement left leg fasciotomy incisions. The patient had moderate amount of superficial necrotic muscle in the anterior lateral compartments with minimal amount of superficial necrotic muscle in the posterior compartment. Follow-up culture results. CK levels have improved to 6900 range. AST/ALT continue to trend downward. 12/30: I discussed the case with Dr. Lopez who recommends home wound VAC as well as physical therapy. I also discussed these needs with case management who was attempting to arrange for discharge planning. CK continues to improve with levels in the 4000 range. 12/31: Still awaiting for home wound VAC arrangements to be made. Leukocytosis is much improved down to 13,900 today. LFTs continue to trend down to normal range. CK levels still in the 4000 range. Nephrology has signed off. Anticipate discharge later today or in a.m. 01/01: Still awaiting for home wound VAC arrangements to be made. Laboratories continue to include including LFTs, CK and leukocytosis. 01/02: Still awaiting for home wound VAC arrangements to be made. 01/03: Patient had an episode of syncope while working with PT today. Nurse reports patient lost consciousness for a few seconds and was helped back to the bed. Patient's blood pressure was noted to be hypotensive/orthostatic. We will bolus 500 normal saline IV fluid and monitor orthostatics. Case management reports that wound VAC should be delivered today. LFTs continue to trend down to normal range. CK levels still in the 2000 range. Nephrology has signed off. Anticipate discharge in a.m. given the syncope and once wound VAC arranged. Patient with low-grade temp. We will monitor. History Interval history: No new issues overnight Hospitalist Physical - Constitutional Vitals: Temp Pulse Resp BP Pulse Ox 99.0 F 107 H 18 118/85 99 01/03/22 05:50 01/03/22 08:18 01/03/22 08:18 01/03/22 05:50 01/03/22 05:50 General appearance: Present: no acute distress - EENT Eyes: Present: PERRL, EOM intact ENT: hearing intact, clear oral mucosa, dentition normal - Neck Neck: Present: supple, normal ROM - Respiratory Respiratory effort: normal Respiratory: bilateral: CTA - Cardiovascular Rhythm: regular Heart Sounds: Present: S1 & S2. Absent: gallop, rub - Extremities Extremities: no ischemia, No edema, Full ROM - Abdominal General gastrointestinal: soft, non-tender, non-distended, normal bowel sounds - Integumentary Integumentary: Present: clear, warm, dry - Neurologic Neurologic: CNII-XII intact, moves all extremities Results - Labs CBC & Chem 7: 01/01/22 05:17 01/02/22 05:07 Labs: Laboratory Last Values WBC 13.6 K/mm3 (4.5-11.0) H 01/01/22 05:17 RBC 3.55 M/mm3 (3.65-5.03) L 01/01/22 05:17 Hgb 11.6 gm/dl (11.8-15.2) L 01/01/22 05:17 Hct 35.0 % (35.5-45.6) L 01/01/22 05:17 MCV 99 fl (84-94) H 01/01/22 05:17 MCH 33 pg (28-32) H 01/01/22 05:17 MCHC 33 % (32-34) 01/01/22 05:17 RDW 13.2 % (13.2-15.2) 01/01/22 05:17 Plt Count 455 K/mm3 (140-440) H 01/01/22 05:17 Lymph % (Auto) 11.3 % (13.4-35.0) L 01/01/22 05:17 [place] % (Auto) 7.6 % (0.0-7.3) H 01/01/22 05:17 Eos % (Auto) 0.3 % (0.0-4.3) 01/01/22 05:17 Baso % (Auto) 0.3 % (0.0-1.8) 01/01/22 05:17 Lymph # (Auto) 1.5 K/mm3 (1.2-5.4) 01/01/22 05:17 [place] # (Auto) 1.0 K/mm3 (0.0-0.8) H 01/01/22 05:17 Eos # (Auto) 0.0 K/mm3 (0.0-0.4) 01/01/22 05:17 Baso # (Auto) 0.0 K/mm3 (0.0-0.1) 01/01/22 05:17 Add Manual Diff Complete 12/30/21 04:49 Total Counted 100 12/30/21 04:49 Seg Neutrophils % 80.5 % (40.0-70.0) H 01/01/22 05:17 Seg Neuts % (Manual) 83.0 % (40.0-70.0) H 12/30/21 04:49 Band Neutrophils % 2.0 % 12/30/21 04:49 Lymphocytes % (Manual) 5.0 % (13.4-35.0) L 12/30/21 04:49 Reactive Lymphs % (Man) 0 % 12/30/21 04:49 Monocytes % (Manual) 8.0 % (0.0-7.3) H 12/30/21 04:49 Eosinophils % (Manual) 0 % (0.0-4.3) 12/30/21 04:49 Basophils % (Manual) 0 % (0.0-1.8) 12/30/21 04:49 Metamyelocytes % 2.0 % 12/30/21 04:49 Myelocytes % 0 % 12/30/21 04:49 Promyelocytes % 0 % 12/30/21 04:49 Blast Cells % 0 % 12/30/21 04:49 Nucleated RBC % Not Reportable 12/30/21 04:49 Seg Neutrophils # 11.0 K/mm3 (1.8-7.7) H 01/01/22 05:17 Seg Neutrophils # Man 17.1 K/mm3 (1.8-7.7) H 12/30/21 04:49 Band Neutrophils # 0.4 K/mm3 12/30/21 04:49 Lymphocytes # (Manual) 1.0 K/mm3 (1.2-5.4) L 12/30/21 04:49 Abs React Lymphs (Man) 0.0 K/mm3 12/30/21 04:49 Monocytes # (Manual) 1.6 K/mm3 (0.0-0.8) H 12/30/21 04:49 Eosinophils # (Manual) 0.0 K/mm3 (0.0-0.4) 12/30/21 04:49 Basophils # (Manual) 0.0 K/mm3 (0.0-0.1) 12/30/21 04:49 Metamyelocytes # 0.4 K/mm3 12/30/21 04:49 Myelocytes # 0.0 K/mm3 12/30/21 04:49 Promyelocytes # 0.0 K/mm3 12/30/21 04:49 Blast Cells # 0.0 K/mm3 12/30/21 04:49 WBC Morphology Not Reportable 12/30/21 04:49 Hypersegmented Neuts Not Reportable 12/30/21 04:49 Hyposegmented Neuts Rare 12/30/21 04:49 Hypogranular Neuts Not Reportable 12/30/21 04:49 Smudge Cells Not Reportable 12/30/21 04:49 Toxic Granulation Not Reportable 12/30/21 04:49 Toxic Vacuolation Not Reportable 12/30/21 04:49 Dohle Bodies Not Reportable 12/30/21 04:49 Pelger-Huet Anomaly Not Reportable 12/30/21 04:49 [place] Rods Not Reportable 12/30/21 04:49 Platelet Estimate Consistent w auto 12/30/21 04:49 Clumped Platelets Not Reportable 12/30/21 04:49 Plt Clumps, EDTA Not Reportable 12/30/21 04:49 Large Platelets Rare 12/30/21 04:49 Giant Platelets Not Reportable 12/30/21 04:49 Platelet Satelliting Not Reportable 12/30/21 04:49 Plt Morphology Comment Not Reportable 12/30/21 04:49 RBC Morphology Not Reportable 12/30/21 04:49 Dimorphic RBCs Not Reportable 12/30/21 04:49 Polychromasia Not Reportable 12/30/21 04:49 Hypochromasia Not Reportable 12/30/21 04:49 Poikilocytosis Not Reportable 12/30/21 04:49 Anisocytosis Rare 12/30/21 04:49 Microcytosis Not Reportable 12/30/21 04:49 Macrocytosis Rare 12/30/21 04:49 Spherocytes Not Reportable 12/30/21 04:49 Pappenheimer Bodies Not Reportable 12/30/21 04:49 Sickle Cells Not Reportable 12/30/21 04:49 Target Cells Not Reportable 12/30/21 04:49 Tear Drop Cells Not Reportable 12/30/21 04:49 Ovalocytes Not Reportable 12/30/21 04:49 Helmet Cells Not Reportable 12/30/21 04:49 Parsons-Hopewell Bodies Not Reportable 12/30/21 04:49 [place] Rings Not Reportable 12/30/21 04:49 Sebastien Cells Not Reportable 12/30/21 04:49 Bite Cells Not Reportable 12/30/21 04:49 Crenated Cell Not Reportable 12/30/21 04:49 Elliptocytes Not Reportable 12/30/21 04:49 Acanthocytes (Spur) Not Reportable 12/30/21 04:49 Rouleaux Not Reportable 12/30/21 04:49 Hemoglobin C Crystals Not Reportable 12/30/21 04:49 Schistocytes Not Reportable 12/30/21 04:49 Malaria parasites Not Reportable 12/30/21 04:49 [place] Bodies Not Reportable 12/30/21 04:49 Hem Pathologist Commnt No 12/30/21 04:49 PT 13.4 Sec. (12.2-14.9) 12/21/21 13:30 INR 0.92 (0.87-1.13) 12/21/21 13:30 APTT 25.8 Sec. (24.2-36.6) 12/21/21 13:30 Sodium 135 mmol/L (137-145) L 01/02/22 05:07 Potassium 3.7 mmol/L (3.6-5.0) 01/02/22 05:07 Chloride 100.1 mmol/L (98-107) 01/02/22 05:07 Carbon Dioxide 26 mmol/L (22-30) 01/02/22 05:07 Anion Gap 13 mmol/L 01/02/22 05:07 BUN 6 mg/dL (9-20) L 01/02/22 05:07 Creatinine 0.5 mg/dL (0.8-1.3) L 01/02/22 05:07 Estimated GFR > 60 ml/min 01/02/22 05:07 BUN/Creatinine Ratio 12 % 01/02/22 05:07 Glucose 113 mg/dL (75-100) H 01/02/22 05:07 Lactic Acid 1.40 mmol/L (0.7-2.0) 12/21/21 13:30 Calcium 8.1 mg/dL (8.4-10.2) L 01/02/22 05:07 Phosphorus 2.80 mg/dL (2.5-4.5) 12/24/21 05:17 Magnesium 2.20 mg/dL (1.7-2.3) 12/24/21 05:17 Total Bilirubin 0.60 mg/dL (0.1-1.2) 01/02/22 05:07 Direct Bilirubin < 0.2 mg/dL (0-0.2) 01/02/22 05:07 Indirect Bilirubin 0.4 mg/dL 01/02/22 05:07 AST 73 units/L (5-40) H 01/02/22 05:07 ALT 134 units/L (7-56) H 01/02/22 05:07 Alkaline Phosphatase 66 units/L (35-129) 01/02/22 05:07 Ammonia 37.0 umol/L (25-60) 12/23/21 04:49 Total Creatine Kinase 2431 units/L (55-170) H 01/02/22 05:07 Total Protein 5.0 g/dL (6.3-8.2) L 01/02/22 05:07 Albumin 2.2 g/dL (3.9-5) L 01/02/22 05:07 Albumin/Globulin Ratio 0.8 % 01/02/22 05:07 Amylase 25 units/L (27-131) L 12/23/21 04:49 Lipase 10 units/L (13-60) L 12/23/21 04:49 Coronavirus (PCR) Negative (Negative) 12/22/21 11:40 Hepatitis A IgM Ab Nonreactive (NonReactive) 12/21/21 13:30 Hep Bs Antigen Non-reactive (Negative) 12/21/21 13:30 Hep B Core IgM Ab Non-reactive (NonReactive) 12/21/21 13:30 Hepatitis C Antibody Non-reactive (NonReactive) 12/21/21 13:30 HIV 1&2 Antibody Rapid Non react (Non React) 12/22/21 16:42 HIV P24 Antigen Non react (Non React) 12/22/21 16:42 Kaur/IV: Voiding Method Urinal Active Medications - Current Medications Current Medications: Generic Name Dose Route Start Last Admin Trade Name Freq PRN Reason Stop Dose Admin Albuterol 2.5 mg 12/21/21 06:15 Albuterol 2.5 Mg/3 Ml Nebu IH Q3HRT PRN Shortness Of Breath Albuterol/Ipratropium 1 ampul 12/22/21 08:00 01/03/22 08:18 Ipratropium/Albuterol Sulfate 3 Ml Ampul.Neb IH 1 ampul BIDRT VLADIMIR Administration Diphenhydramine HCl 25 mg 12/21/21 06:24 12/26/21 18:49 Diphenhydramine 50 Mg/Ml Vial IV 25 mg Q6H PRN Administration Skin Irritation Docusate Sodium 100 mg 12/23/21 22:00 01/03/22 10:40 Docusate Sodium 100 Mg Cap PO 100 mg BID VLADIMIR Administration Famotidine 20 mg 12/26/21 10:00 01/03/22 10:40 Famotidine 20 Mg Tab PO 20 mg BID VLADIMIR Administration Gabapentin 100 mg 12/31/21 06:00 01/03/22 06:03 Gabapentin 100 Mg Cap PO 01/04/22 14:01 100 mg 0600,1400 VLADIMIR Administration Gabapentin 300 mg 12/31/21 22:00 01/02/22 21:09 Gabapentin 300 Mg Cap PO 01/04/22 22:01 300 mg QHS VLADIMIR Administration Gabapentin 300 mg 01/05/22 08:00 Gabapentin 300 Mg Cap PO TID@0800,1600,2200 VLADIMIR Heparin Sodium (Porcine) 5,000 unit 12/21/21 10:00 01/03/22 10:38 Heparin 5,000 Unit/1 Ml Vial SUB-Q 5,000 unit Q12HR VLADIMIR Administration Hydralazine HCl 10 mg 12/22/21 18:31 12/22/21 18:50 Hydralazine 20 Mg/1 Ml Inj IV 10 mg Q3HR PRN Administration Hypertension Hydromorphone HCl 0.5 mg 12/21/21 06:15 01/03/22 03:52 Hydromorphone 1 Mg/1 Ml Inj IV 0.5 mg Q3H PRN Administration Pain , Severe (7-10) Sodium Chloride 1,000 mls @ 75 mls/hr 01/03/22 01:00 01/03/22 01:09 Nacl 0.9% 1000 Ml IV 75 mls/hr DIRECT VLADIMIR Administration Morphine Sulfate 2 mg 12/21/21 06:15 01/03/22 10:39 Morphine 2 Mg/1 Ml Inj IV 2 mg Q4H PRN Administration Pain, Moderate (4-6) Ondansetron HCl 4 mg 12/21/21 06:15 01/03/22 10:38 Ondansetron 4 Mg/2 Ml Inj IV 4 mg Q8H PRN Administration Nausea And Vomiting Sodium Chloride 10 ml 12/21/21 10:00 01/03/22 10:40 Sodium Chloride 0.9% 10 Ml Flush Syringe IV 10 ml BID VLADIMIR Administration Sodium Chloride 10 ml 12/21/21 06:15 12/30/21 01:09 Sodium Chloride 0.9% 10 Ml Flush Syringe IV 10 ml PRN PRN Administration LINE FLUSH Valsartan 160 mg 12/22/21 22:00 01/03/22 10:40 Valsartan 160mg Tab PO 160 mg DAILY VLADIMIR Administration Nutrition/Malnutrition Assess - Dietary Evaluation Nutrition/Malnutrition Findings: Nutrition Notes Start: 12/28/21 16:45 Freq: Status: Active Protocol: Document 12/30/21 12:23 OPAL (Rec: 12/30/21 12:43 OPAL [id number]) Nutrition Notes Initial or Follow up Brief Note Current Diagnosis Hypertension Other Pertinent Diagnosis Rabdomyolysis, Liver Failure, s/p L-LE 4 Compartment Fasciotomy w/Debridem. Current Diet Regular Diet + Dietary Supplements. (since B 12/29). Height 5 ft 6 in Weight 86.183 kg [place] Body Weight (kg) 64.54 BMI 30.7 Weight change and time frame No bnody weight change reporterd in 2 days. Weight Status Obese Subjective/Other Information RD consult for routine F/U on dietary advancement. Pt is now on PO diet, but no reports available on Pt's PO intake of meals at the time, will assess at F/U. Pt is on Room Air, O2 saturation @ 97%, according to Physical Assessment History notes. Procedure on 12/28: Excisinal debridement of muscle and soft tissue from L-LE wound, and woundVAC placement; Leg fasciotomy lateral and medial incisions, Well tolerated, according to Operative Report. Percent of energy/protein needs met: Prescribed Regular Diet provides for energy/protein needs (2,289 Kcal/89 g) during LOS; additionally, Dietary Supplements will support wound healing processes with 190 Kcal and 5 g of protein. #1 Nutrition Diagnosis Increased nutrient needs ( specify in comment below) Comments: Protein to support wound healing processes. Diagnosis Progress(for reassessment Continues documentation) Is patient on ventilator? No Is Patient Ambulatory and/or Out of Bed No REE-([facility]-confined to bed) 2083.920 Kcal/Kg value to use for calculation 19 Approximate Energy Requirements Using 1637 kcal/Kg Calculation Used for Recommendations Kcal/kg Additional Notes Protein: 1.25-1.5 g/Kg AdjBW; 85-114 g/day. Fluids: 1 ml/Kcal, or as per MD. Nutrition Intervention Change Diet Order: Continue Regular Diet. Add Supplement/Snack (indicate name/kcal Continue 28.8 g pkt Calvin; BID /protein ) . Provides kCal: 190 Provides Protein (gm) 5 Goal #1 Support, through dietary supplementation, wound healing processes during LOS. Goal #2 Adjust the dietary intervention to better serve Pt's needs and clinical conditions during LOS. Goal #3 Maintain body weight within +/ -3% of admission body weight during LOS. Follow-Up By: 01/06/22 Additional Comments Continue monitoring food tolerance, %PO intake of meals , and BM.
[2022-01-03 12:33] LABS: Alanine Aminotransferase 187 units/L (7-56); Albumin 2.8 g/dL (3.9-5); Bilirubin,Direct < 0.2 mg/dL (0-0.2)
[2022-01-03] MEDS ORDERED: SODIUM CHLORIDE 0.9% 500 ML 500 ML IV ONE ×2 (14:00→17:20)
--- NOTE | 2022-01-03 14:17 | Progress Note ---
Assessment and Plan Left lower extremity compartment syndrome status post fasciotomies. Doing well with wound VAC. Needs outpatient wound VAC changing with home health. Has swelling of the left lower extremity. Ordered DVT ultrasound. Subjective Date of service: 01/03/22 Principal diagnosis: abnormal liver enzymes Interval history: Minimal discomfort of the left leg. Wound VAC without issue. Strongly palpable left dorsalis pedis and posterior tibial pulse. The patient has sensation of the foot. No motor function of the foot. Motor is unchanged from the original exam. Bandage over fasciotomies. Objective - Constitutional Vitals: Vital Signs - 12hr 01/03/22 01/03/22 01/03/22 05:50 08:18 10:54 Temperature 99.0 F 99.1 F Pulse Rate 96 H 94 H Pulse Rate [ 107 H Anterior Bilateral Throughout] Respiratory 20 18 Rate Respiratory 18 Rate [Anterior Bilateral Throughout] Blood Pressure 118/85 118/69 O2 Sat by Pulse 99 97 Oximetry 01/03/22 01/03/22 12:07 12:08 Temperature Pulse Rate 91 H 88 Pulse Rate [ Anterior Bilateral Throughout] Respiratory Rate Respiratory Rate [Anterior Bilateral Throughout] Blood Pressure 106/69 O2 Sat by Pulse 100 99 Oximetry General appearance: Present: no acute distress - EENT Eyes: EOM intact ENT: hearing intact - Respiratory Respiratory effort: normal Extremities: pulses intact Extremity abnormal: edema (2+ LLE), other (see subjective) - Gastrointestinal General gastrointestinal: Present: soft, non-tender - Psychiatric Psychiatric: appropriate mood/affect, cooperative - Labs CBC & Chem 7: 01/01/22 05:17 01/02/22 05:07 Labs: Abnormal lab results 01/03/22 Range/Units 04:00 AST 93 H (5-40) units/L ALT 187 H (7-56) units/L Total Protein 5.3 L (6.3-8.2) g/dL Albumin 2.8 L (3.9-5) g/dL Medications & Allergies - Medications Allergies/Adverse Reactions: Allergies ceftriaxone [From Rocephin] Allergy (Severe, Verified 12/23/21 10:23) Unknown SEVERE RASH MOTTLING OF THE SKIN POST ADMINISTRATION OF IM [employer] Penicillins Allergy (Severe, Verified 12/23/21 10:23) Unknown SEVERE RASH MOTTLING OF THE SKIN POST ADMINISTRATION OF IM [employer] Home Medications: Home Medications Medication Instructions Recorded Confirmed Last Taken Type No Known Home Medications [No 12/21/21 12/21/21 Unknown History Reported Home Medications] Active Medications: Generic Name Dose Route Start Last Admin Trade Name Freq PRN Reason Stop Dose Admin Albuterol 2.5 mg 12/21/21 06:15 Albuterol 2.5 Mg/3 Ml Nebu IH Q3HRT PRN Shortness Of Breath Albuterol/Ipratropium 1 ampul 12/22/21 08:00 01/03/22 08:18 Ipratropium/Albuterol Sulfate 3 Ml Ampul.Neb IH 1 ampul BIDRT VLADIMIR Administration Diphenhydramine HCl 25 mg 12/21/21 06:24 12/26/21 18:49 Diphenhydramine 50 Mg/Ml Vial IV 25 mg Q6H PRN Administration Skin Irritation Docusate Sodium 100 mg 12/23/21 22:00 01/03/22 10:40 Docusate Sodium 100 Mg Cap PO 100 mg BID VLADIMIR Administration Famotidine 20 mg 12/26/21 10:00 01/03/22 10:40 Famotidine 20 Mg Tab PO 20 mg BID VLADIMIR Administration Gabapentin 100 mg 12/31/21 06:00 01/03/22 13:06 Gabapentin 100 Mg Cap PO 01/04/22 14:01 100 mg 0600,1400 VLADIMIR Administration Gabapentin 300 mg 12/31/21 22:00 01/02/22 21:09 Gabapentin 300 Mg Cap PO 01/04/22 22:01 300 mg QHS VLADIMIR Administration Gabapentin 300 mg 01/05/22 08:00 Gabapentin 300 Mg Cap PO TID@0800,1600,2200 VLADIMIR Heparin Sodium (Porcine) 5,000 unit 12/21/21 10:00 01/03/22 10:38 Heparin 5,000 Unit/1 Ml Vial SUB-Q 5,000 unit Q12HR VLADIMIR Administration Hydralazine HCl 10 mg 12/22/21 18:31 12/22/21 18:50 Hydralazine 20 Mg/1 Ml Inj IV 10 mg Q3HR PRN Administration Hypertension Hydromorphone HCl 0.5 mg 12/21/21 06:15 01/03/22 03:52 Hydromorphone 1 Mg/1 Ml Inj IV 0.5 mg Q3H PRN Administration Pain , Severe (7-10) Sodium Chloride 1,000 mls @ 75 mls/hr 01/03/22 01:00 01/03/22 13:08 Nacl 0.9% 1000 Ml IV 75 mls/hr DIRECT VLADIMIR Administration Sodium Chloride 500 mls @ 999 mls/hr 01/03/22 14:00 Nacl 0.9% 500 Ml IV 01/03/22 14:30 ONCE ONE Morphine Sulfate 2 mg 12/21/21 06:15 01/03/22 13:06 Morphine 2 Mg/1 Ml Inj IV 2 mg Q4H PRN Administration Pain, Moderate (4-6) Ondansetron HCl 4 mg 12/21/21 06:15 01/03/22 10:38 Ondansetron 4 Mg/2 Ml Inj IV 4 mg Q8H PRN Administration Nausea And Vomiting Sodium Chloride 10 ml 12/21/21 10:00 01/03/22 10:40 Sodium Chloride 0.9% 10 Ml Flush Syringe IV 10 ml BID VLADIMIR Administration Sodium Chloride 10 ml 12/21/21 06:15 12/30/21 01:09 Sodium Chloride 0.9% 10 Ml Flush Syringe IV 10 ml PRN PRN Administration LINE FLUSH Valsartan 160 mg 12/22/21 22:00 01/03/22 10:40 Valsartan 160mg Tab PO 160 mg DAILY VLADIMIR Administration
--- NOTE | 2022-01-03 16:12 | Vascular Lab Report ---
DUPLEX DOPPLER LOWER EXTREMITY VEINS, LEFT INDICATION / CLINICAL INFORMATION: swelling, DVT. TECHNIQUE: Duplex doppler imaging was performed through the veins of the left lower extremity using venous compr ession and other maneuvers. COMPARISON: 12/21/2021 FINDINGS: LEFT COMMON FEMORAL VEIN: Negative. LEFT FEMORAL VEIN: Negative. LEFT POPLITEAL VEIN: Negative. LEFT CALF VEINS: Not well visualized due to overlying bandaging and wound VAC. ADDITIONAL FINDINGS: None. IMPRESSION: 1. No sonographic evidence for DVT in the left lower extremity. Signer Name: Srinivas Pittman MD Signed: 01/03/2022 4:07 PM Workstation Name: [id number]
[2022-01-03] MEDS: GABAPENTIN 300 MG CAP PO SCH (21:33)
[2022-01-04] MEDS: SODIUM CHLORIDE 0.9% 1000 ML 1,000 ML IV SCH ×2 (02:39→21:15)
[2022-01-04 06:21] LABS: Basophils % (Auto) 0.3 % (0.0-1.8); Eosinophils % (Auto) 0.4 % (0.0-4.3); Hemoglobin 10.7 gm/dl (11.8-15.2); Lymphocytes # (Auto) 1.4 K/mm3 (1.2-5.4); Lymphocytes % (Auto) 12.9 % (13.4-35.0); Mean Corpuscular HGB Conc 33 % (32-34); Mean Corpuscular Volume 99 fl (84-94); Monocytes # (Auto) 0.7 K/mm3 (0.0-0.8); Monocytes % (Auto) 6.9 % (0.0-7.3); Platelet Count 427 K/mm3 (140-440); Red Blood Count 3.21 M/mm3 (3.65-5.03); Red Cell Distribution Width 13.3 % (13.2-15.2)
[2022-01-04] MEDS: GABAPENTIN 100 MG CAP PO SCH ×2 (06:27→14:06)
[2022-01-04 06:39] LABS: BUN/Creatinine Ratio 8; Blood Urea Nitrogen 5 mg/dL (9-20); Calcium 8.4 mg/dL (8.4-10.2); Hemolysis Index 3
--- NOTE | 2022-01-04 08:45 | Progress Note ---
Assessment and Plan Assessment and plan: This is a 36 year old transgendered female undergoing gender transformation with silicone injection to buttocks ([place] 2016) and breast implants, heavy drinker on the weekends (bottle of vodka) who presented to [facility] on 12/21 because of adverse drug reaction after reportedly self administration of rocephin and PCN for sore throat. Patient reportedly collapsed while checking in to the emergency department, has complains of severe 10 out of 10 pain in left thigh and has noticeable mottling of skin in thigh and left lower abdomen. Patient underwent a CT of the left leg which showed possible cellulitis with no drainable fluid collection and was started on empiric antibiotics. Patient admitted to the hospital service with diagnosis of acute liver failure, rhabdomyolysis, s/p 4 compartment fasciotomy to left lower extremity Acute liver failure -GI consulted, appreciate recommendations -Per GI: Suspect due to rhabdomyolysis given elevated creatinine kinase levels -If ALT continues to rise recommend MRCP -Abdominal ultrasound showed mild diffuse biliary dilation, obstruction to lesion of the distal common bile duct cannot be excluded consider MRCP, no evidence of gallstones within the gallbladder -PPI -Regular diet -BR: colace -Trend LFTs Compartment syndrome to LLE -Vascular surgery consulted, appreciate recommendations -s/p self admin of IM abx to midthigh -c/o pain, decreased sensation, pulses were dopplarable, paralysis, mottled skin -s/p 4 compartment tracheotomy on 12/21 with vascular surgery -Bilateral lower extremity Doppler ultrasound showed no DVT -Left lower extremity CT with contrast showed appearance of posterior soft tissue complex cellulitis with small subcutaneous lymph nodes, no drainable fluid collections present, contusion could have similar appearance -Bilateral lower extremity arterial duplex showed no significant lower extremity peripheral artery disease -Normal ABIs Peripheral neuropathy -Avoid delirium -Reorientation as needed -Maintain sleep-wake cycle -As needed analgesia -Neurology consulted, appreciate recommendations -Gabapentin HTN -Blood pressure monitoring per protocol -Valsartan -PRN hydralazine Rhabdomyolysis acute kidney injury with vasomotor nephropathy now resolved -Nephrology consulted, appreciate recommendations -Strict intake and output -Renally dose medications -Avoid nephrotoxic medications -MIVF -Sodium bicarb -Trend BMP, CK Hospital course to date: 12/21: Venous ultrasound shows no DVT, Vascular surgery consulted who performed a fasciotomy and plan to transfer patient to [facility] post intervention. Neurology consulted 12/22: Transfer to ICU, GI and neurology consulted. 12/23: Patient will be transferred back to the floor from ICU. Her liver enzymes and creatinine are trending down. Will be started on gabapentin per neurology recommendations and antibiotics discontinued. 12/24: Continue supportive care. CPK slowly improving. Vascular plans for closure of fasciotomy early next week. PT OT evaluation and treatment closure done. Continue wound management. No evidence of withdrawal noted at this time. Continue to monitor LFTs which are also slightly improving. Plan discussed in detail with the patient who verbalized understanding 12/25: Patient seen and examined clinically stable continues to show some improvement. Closure of fasciotomy planned for tomorrow. Renal function is improving. CK ordered and pending 12/26: Patient seen and examined, wbc mildly elevated likely secondary to steroids, will change to po for two additional days and stop, benefit probably already achieved, continue wound dressing, sensory function improved, awaiting wound vac and closure. Patient advised on clinically progress. 12/27: Patient seen and examined awaiting her vascular surgery for closure of fasciotomy. CK is decreasing less than 9000 today. We will continue aggressive IV fluids until we have the resolution below 5000. LFTs on the downward trend also. Leukocytosis appears to have peaked steroids was changed to oral for 2 additional days today is 1 of 2.. Plan of care discussed in detail with the patient who verbalized understanding. 12/28: Left lower extremity compartment syndrome status post fasciotomies. Cau se is still unclear and may represent some allergic reaction. Motor function is unchanged from original exam. Sensory function has improved with full sensation of the foot.vascular surgery to place wound vacs on the leg today. CK improved to the 8000 range today 12/29: Patient underwent excisional debridement of muscle and soft tissue from left leg wound yesterday. Patient also had wound VAC placement left leg fasciotomy incisions. The patient had moderate amount of superficial necrotic muscle in the anterior lateral compartments with minimal amount of superficial necrotic muscle in the posterior compartment. Follow-up culture results. CK levels have improved to 6900 range. AST/ALT continue to trend downward. 12/30: I discussed the case with Dr. Lopez who recommends home wound VAC as well as physical therapy. I also discussed these needs with case management who was attempting to arrange for discharge planning. CK continues to improve with levels in the 4000 range. 12/31: Still awaiting for home wound VAC arrangements to be made. Leukocytosis is much improved down to 13,900 today. LFTs continue to trend down to normal range. CK levels still in the 4000 range. Nephrology has signed off. Anticipate discharge later today or in a.m. 01/01: Still awaiting for home wound VAC arrangements to be made. Laboratories continue to include including LFTs, CK and leukocytosis. 01/02: Still awaiting for home wound VAC arrangements to be made. 01/03: Patient had an episode of syncope while working with PT today. Nurse reports patient lost consciousness for a few seconds and was helped back to the bed. Patient's blood pressure was noted to be hypotensive/orthostatic. We will bolus 500 normal saline IV fluid and monitor orthostatics. Case management reports that wound VAC should be delivered today. LFTs continue to trend down to normal range. CK levels still in the 2000 range. Nephrology has signed off. Anticipate discharge in a.m. given the syncope and once wound VAC arranged. Patient with low-grade temp. We will monitor. 01/04; patient is anxious to go home, wound VAC is delivered to the bedside, continue wound care Multiple social issues, DC planning per case management History Interval history: I have seen and examined the patient at the bedside Patient's chart and medications reviewed. Patient received wound VAC at the bedside Feels better no new complaints Anxious to go home Vital signs noted Hospitalist Physical - Constitutional Vitals: Temp Pulse Resp BP Pulse Ox 99.4 F 102 H 18 106/66 98 01/04/22 04:50 01/04/22 04:50 01/04/22 04:50 01/04/22 04:50 01/04/22 04:50 General appearance: Present: no acute distress, well-nourished, obese - EENT Eyes: Present: PERRL, EOM intact - Neck Neck: Present: supple, normal ROM - Respiratory Respiratory effort: normal Respiratory: bilateral: diminished, negative: rales, rhonchi, wheezing - Cardiovascular Rhythm: regular Heart Sounds: Present: S1 & S2 - Extremities Extremities: no ischemia, No edema - Abdominal General gastrointestinal: soft, non-tender, non-distended, normal bowel sounds - Integumentary Integumentary: Present: clear, warm - Psychiatric Psychiatric: appropriate mood/affect, cooperative - Neurologic Neurologic: CNII-XII intact, moves all extremities Results - Labs CBC & Chem 7: 01/04/22 05:01 01/04/22 05:01 Labs: Laboratory Last Values WBC 10.6 K/mm3 (4.5-11.0) 01/04/22 05:01 RBC 3.21 M/mm3 (3.65-5.03) L 01/04/22 05:01 Hgb 10.7 gm/dl (11.8-15.2) L 01/04/22 05:01 Hct 32.0 % (35.5-45.6) L 01/04/22 05:01 MCV 99 fl (84-94) H 01/04/22 05:01 MCH 33 pg (28-32) H 01/04/22 05:01 MCHC 33 % (32-34) 01/04/22 05:01 RDW 13.3 % (13.2-15.2) 01/04/22 05:01 Plt Count 427 K/mm3 (140-440) 01/04/22 05:01 Lymph % (Auto) 12.9 % (13.4-35.0) L 01/04/22 05:01 [place] % (Auto) 6.9 % (0.0-7.3) 01/04/22 05:01 Eos % (Auto) 0.4 % (0.0-4.3) 01/04/22 05:01 Baso % (Auto) 0.3 % (0.0-1.8) 01/04/22 05:01 Lymph # (Auto) 1.4 K/mm3 (1.2-5.4) 01/04/22 05:01 [place] # (Auto) 0.7 K/mm3 (0.0-0.8) 01/04/22 05:01 Eos # (Auto) 0.0 K/mm3 (0.0-0.4) 01/04/22 05:01 Baso # (Auto) 0.0 K/mm3 (0.0-0.1) 01/04/22 05:01 Add Manual Diff Complete 12/30/21 04:49 Total Counted 100 12/30/21 04:49 Seg Neutrophils % 79.5 % (40.0-70.0) H 01/04/22 05:01 Seg Neuts % (Manual) 83.0 % (40.0-70.0) H 12/30/21 04:49 Band Neutrophils % 2.0 % 12/30/21 04:49 Lymphocytes % (Manual) 5.0 % (13.4-35.0) L 12/30/21 04:49 Reactive Lymphs % (Man) 0 % 12/30/21 04:49 Monocytes % (Manual) 8.0 % (0.0-7.3) H 12/30/21 04:49 Eosinophils % (Manual) 0 % (0.0-4.3) 12/30/21 04:49 Basophils % (Manual) 0 % (0.0-1.8) 12/30/21 04:49 Metamyelocytes % 2.0 % 12/30/21 04:49 Myelocytes % 0 % 12/30/21 04:49 Promyelocytes % 0 % 12/30/21 04:49 Blast Cells % 0 % 12/30/21 04:49 Nucleated RBC % Not Reportable 12/30/21 04:49 Seg Neutrophils # 8.4 K/mm3 (1.8-7.7) H 01/04/22 05:01 Seg Neutrophils # Man 17.1 K/mm3 (1.8-7.7) H 12/30/21 04:49 Band Neutrophils # 0.4 K/mm3 12/30/21 04:49 Lymphocytes # (Manual) 1.0 K/mm3 (1.2-5.4) L 12/30/21 04:49 Abs React Lymphs (Man) 0.0 K/mm3 12/30/21 04:49 Monocytes # (Manual) 1.6 K/mm3 (0.0-0.8) H 12/30/21 04:49 Eosinophils # (Manual) 0.0 K/mm3 (0.0-0.4) 12/30/21 04:49 Basophils # (Manual) 0.0 K/mm3 (0.0-0.1) 12/30/21 04:49 Metamyelocytes # 0.4 K/mm3 12/30/21 04:49 Myelocytes # 0.0 K/mm3 12/30/21 04:49 Promyelocytes # 0.0 K/mm3 12/30/21 04:49 Blast Cells # 0.0 K/mm3 12/30/21 04:49 WBC Morphology Not Reportable 12/30/21 04:49 Hypersegmented Neuts Not Reportable 12/30/21 04:49 Hyposegmented Neuts Rare 12/30/21 04:49 Hypogranular Neuts Not Reportable 12/30/21 04:49 Smudge Cells Not Reportable 12/30/21 04:49 Toxic Granulation Not Reportable 12/30/21 04:49 Toxic Vacuolation Not Reportable 12/30/21 04:49 Dohle Bodies Not Reportable 12/30/21 04:49 Pelger-Huet Anomaly Not Reportable 12/30/21 04:49 [place] Rods Not Reportable 12/30/21 04:49 Platelet Estimate Consistent w auto 12/30/21 04:49 Clumped Platelets Not Reportable 12/30/21 04:49 Plt Clumps, EDTA Not Reportable 12/30/21 04:49 Large Platelets Rare 12/30/21 04:49 Giant Platelets Not Reportable 12/30/21 04:49 Platelet Satelliting Not Reportable 12/30/21 04:49 Plt Morphology Comment Not Reportable 12/30/21 04:49 RBC Morphology Not Reportable 12/30/21 04:49 Dimorphic RBCs Not Reportable 12/30/21 04:49 Polychromasia Not Reportable 12/30/21 04:49 Hypochromasia Not Reportable 12/30/21 04:49 Poikilocytosis Not Reportable 12/30/21 04:49 Anisocytosis Rare 12/30/21 04:49 Microcytosis Not Reportable 12/30/21 04:49 Macrocytosis Rare 12/30/21 04:49 Spherocytes Not Reportable 12/30/21 04:49 Pappenheimer Bodies Not Reportable 12/30/21 04:49 Sickle Cells Not Reportable 12/30/21 04:49 Target Cells Not Reportable 12/30/21 04:49 Tear Drop Cells Not Reportable 12/30/21 04:49 Ovalocytes Not Reportable 12/30/21 04:49 Helmet Cells Not Reportable 12/30/21 04:49 [place] Bodies Not Reportable 12/30/21 04:49 [place] Rings Not Reportable 12/30/21 04:49 [place]ien Cells Not Reportable 12/30/21 04:49 Bite Cells Not Reportable 12/30/21 04:49 Crenated Cell Not Reportable 12/30/21 04:49 Elliptocytes Not Reportable 12/30/21 04:49 Acanthocytes (Spur) Not Reportable 12/30/21 04:49 Rouleaux Not Reportable 12/30/21 04:49 Hemoglobin C Crystals Not Reportable 12/30/21 04:49 Schistocytes Not Reportable 12/30/21 04:49 Malaria parasites Not Reportable 12/30/21 04:49 [place] Bodies Not Reportable 12/30/21 04:49 Hem Pathologist Commnt No 12/30/21 04:49 PT 13.4 Sec. (12.2-14.9) 12/21/21 13:30 INR 0.92 (0.87-1.13) 12/21/21 13:30 APTT 25.8 Sec. (24.2-36.6) 12/21/21 13:30 Sodium 138 mmol/L (137-145) 01/04/22 05:01 Potassium 3.8 mmol/L (3.6-5.0) 01/04/22 05:01 Chloride 102.8 mmol/L (98-107) 01/04/22 05:01 Carbon Dioxide 27 mmol/L (22-30) 01/04/22 05:01 Anion Gap 12 mmol/L 01/04/22 05:01 BUN 5 mg/dL (9-20) L 01/04/22 05:01 Creatinine 0.6 mg/dL (0.8-1.3) L 01/04/22 05:01 Estimated GFR > 60 ml/min 01/04/22 05:01 BUN/Creatinine Ratio 8 % 01/04/22 05:01 Glucose 105 mg/dL (75-100) H 01/04/22 05:01 Lactic Acid 1.40 mmol/L (0.7-2.0) 12/21/21 13:30 Calcium 8.4 mg/dL (8.4-10.2) 01/04/22 05:01 Phosphorus 2.80 mg/dL (2.5-4.5) 12/24/21 05:17 Magnesium 2.20 mg/dL (1.7-2.3) 12/24/21 05:17 Total Bilirubin 0.50 mg/dL (0.1-1.2) 01/03/22 04:00 Direct Bilirubin < 0.2 mg/dL (0-0.2) 01/03/22 04:00 Indirect Bilirubin 0.3 mg/dL 01/03/22 04:00 AST 93 units/L (5-40) H 01/03/22 04:00 ALT 187 units/L (7-56) H 01/03/22 04:00 Alkaline Phosphatase 85 units/L (35-129) 01/03/22 04:00 Ammonia 37.0 umol/L (25-60) 12/23/21 04:49 Total Creatine Kinase 2431 units/L (55-170) H 01/02/22 05:07 Total Protein 5.3 g/dL (6.3-8.2) L 01/03/22 04:00 Albumin 2.8 g/dL (3.9-5) L 01/03/22 04:00 Albumin/Globulin Ratio 1.1 % 01/03/22 04:00 Amylase 25 units/L (27-131) L 12/23/21 04:49 Lipase 10 units/L (13-60) L 12/23/21 04:49 Coronavirus (PCR) Negative (Negative) 12/22/21 11:40 Hepatitis A IgM Ab Nonreactive (NonReactive) 12/21/21 13:30 Hep Bs Antigen Non-reactive (Negative) 12/21/21 13:30 Hep B Core IgM Ab Non-reactive (NonReactive) 12/21/21 13:30 Hepatitis C Antibody Non-reactive (NonReactive) 12/21/21 13:30 HIV 1&2 Antibody Rapid Non react (Non React) 12/22/21 16:42 HIV P24 Antigen Non react (Non React) 12/22/21 16:42 Kaur/IV: Voiding Method Urinal Active Medications - Current Medications Current Medications: Generic Name Dose Route Start Last Admin Trade Name Freq PRN Reason Stop Dose Admin Albuterol 2.5 mg 12/21/21 06:15 Albuterol 2.5 Mg/3 Ml Nebu IH Q3HRT PRN Shortness Of Breath Albuterol/Ipratropium 1 ampul 12/22/21 08:00 01/03/22 21:09 Ipratropium/Albuterol Sulfate 3 Ml Ampul.Neb IH 1 ampul BIDRT VLADIMIR Administration Diphenhydramine HCl 25 mg 12/21/21 06:24 12/26/21 18:49 Diphenhydramine 50 Mg/Ml Vial IV 25 mg Q6H PRN Administration Skin Irritation Docusate Sodium 100 mg 12/23/21 22:00 01/03/22 21:33 Docusate Sodium 100 Mg Cap PO 100 mg BID VLADIMIR Administration Famotidine 20 mg 12/26/21 10:00 01/03/22 21:33 Famotidine 20 Mg Tab PO 20 mg BID VLADIMIR Administration Gabapentin 100 mg 12/31/21 06:00 01/04/22 06:27 Gabapentin 100 Mg Cap PO 01/04/22 14:01 100 mg 0600,1400 VLADIMIR Administration Gabapentin 300 mg 12/31/21 22:00 01/03/22 21:33 Gabapentin 300 Mg Cap PO 01/04/22 22:01 300 mg QHS VLADIMIR Administration Gabapentin 300 mg 01/05/22 08:00 Gabapentin 300 Mg Cap PO TID@0800,1600,2200 VLADIMIR Heparin Sodium (Porcine) 5,000 unit 12/21/21 10:00 01/03/22 21:33 Heparin 5,000 Unit/1 Ml Vial SUB-Q 5,000 unit Q12HR VLADIMIR Administration Hydralazine HCl 10 mg 12/22/21 18:31 12/22/21 18:50 Hydralazine 20 Mg/1 Ml Inj IV 10 mg Q3HR PRN Administration Hypertension Hydromorphone HCl 0.5 mg 12/21/21 06:15 01/03/22 03:52 Hydromorphone 1 Mg/1 Ml Inj IV 0.5 mg Q3H PRN Administration Pain , Severe (7-10) Sodium Chloride 1,000 mls @ 75 mls/hr 01/03/22 01:00 01/04/22 02:39 Nacl 0.9% 1000 Ml IV 75 mls/hr DIRECT VLADIMIR Administration Morphine Sulfate 2 mg 12/21/21 06:15 01/03/22 17:50 Morphine 2 Mg/1 Ml Inj IV 2 mg Q4H PRN Administration Pain, Moderate (4-6) Ondansetron HCl 4 mg 12/21/21 06:15 01/03/22 10:38 Ondansetron 4 Mg/2 Ml Inj IV 4 mg Q8H PRN Administration Nausea And Vomiting Sodium Chloride 10 ml 12/21/21 10:00 01/03/22 21:34 Sodium Chloride 0.9% 10 Ml Flush Syringe IV 10 ml BID VLADIMIR Administration Sodium Chloride 10 ml 12/21/21 06:15 12/30/21 01:09 Sodium Chloride 0.9% 10 Ml Flush Syringe IV 10 ml PRN PRN Administration LINE FLUSH Valsartan 160 mg 12/22/21 22:00 01/03/22 10:40 Valsartan 160mg Tab PO 160 mg DAILY VLADIMIR Administration Nutrition/Malnutrition Assess - Dietary Evaluation Nutrition/Malnutrition Findings: Nutrition Notes Start: 12/28/21 16:45 Freq: Status: Active Protocol: Document 12/30/21 12:23 OPAL (Rec: 12/30/21 12:43 OPAL [email or web address]) Nutrition Notes Initial or Follow up Brief Note Current Diagnosis Hypertension Other Pertinent Diagnosis Rabdomyolysis, Liver Failure, s/p L-LE 4 Compartment Fasciotomy w/Debridem. Current Diet Regular Diet + Dietary Supplements. (since B 12/29). Height 5 ft 6 in Weight 86.183 kg [place] Body Weight (kg) 64.54 BMI 30.7 Weight change and time frame No bnody weight change reporterd in 2 days. Weight Status Obese Subjective/Other Information RD consult for routine F/U on dietary advancement. Pt is now on PO diet, but no reports available on Pt's PO intake of meals at the time, will assess at F/U. Pt is on Room Air, O2 saturation @ 97%, according to Physical Assessment History notes. Procedure on 12/28: Excisinal debridement of muscle and soft tissue from L-LE wound, and woundVAC placement; Leg fasciotomy lateral and medial incisions, Well tolerated, according to Operative Report. Percent of energy/protein needs met: Prescribed Regular Diet provides for energy/protein needs (2,289 Kcal/89 g) during LOS; additionally, Dietary Supplements will support wound healing processes with 190 Kcal and 5 g of protein. #1 Nutrition Diagnosis Increased nutrient needs ( specify in comment below) Comments: Protein to support wound healing processes. Diagnosis Progress(for reassessment Continues documentation) Is patient on ventilator? No Is Patient Ambulatory and/or Out of Bed No REE-([facility]-confined to bed) 2083.920 Kcal/Kg value to use for calculation 19 Approximate Energy Requirements Using 1637 kcal/Kg Calculation Used for Recommendations Kcal/kg Additional Notes Protein: 1.25-1.5 g/Kg AdjBW; 85-114 g/day. Fluids: 1 ml/Kcal, or as per MD. Nutrition Intervention Change Diet Order: Continue Regular Diet. Add Supplement/Snack (indicate name/kcal Continue 28.8 g pkt Calvin; BID /protein ) . Provides kCal: 190 Provides Protein (gm) 5 Goal #1 Support, through dietary supplementation, wound healing processes during LOS. Goal #2 Adjust the dietary intervention to better serve Pt's needs and clinical conditions during LOS. Goal #3 Maintain body weight within +/ -3% of admission body weight during LOS. Follow-Up By: 01/06/22 Additional Comments Continue monitoring food tolerance, %PO intake of meals , and BM.
[2022-01-04] MEDS: IPRATROPIUM/ALBUTEROL SULFATE 3 ML AMPUL.NEB IH SCH ×2 (09:10→20:28)
[2022-01-04] MEDS: VALSARTAN 160MG TAB PO SCH (09:11)
[2022-01-04] MEDS: DOCUSATE SODIUM 100 MG CAP PO SCH ×2 (09:11→21:15)
[2022-01-04] MEDS: HEPARIN 5,000 UNIT/1 ML VIAL SUB-Q SCH ×2 (09:11→21:14)
[2022-01-04] MEDS: FAMOTIDINE 20 MG TAB PO SCH ×2 (09:12→21:15)
[2022-01-04] MEDS: HYDROmorphone 1 MG/1 ML INJ IV PRN (14:05)
[2022-01-04] MEDS: GABAPENTIN 300 MG CAP PO SCH (21:15)
[2022-01-05] MEDS: ACETAMINOPHEN 325 MG TAB PO PRN (00:08)
[2022-01-05] MEDS: IPRATROPIUM/ALBUTEROL SULFATE 3 ML AMPUL.NEB IH SCH ×2 (08:58→19:42)
[2022-01-05] MEDS: DOCUSATE SODIUM 100 MG CAP PO SCH ×2 (09:09→21:27)
[2022-01-05] MEDS: VALSARTAN 160MG TAB PO SCH (09:09)
[2022-01-05] MEDS: FAMOTIDINE 20 MG TAB PO SCH ×2 (09:10→21:27)
[2022-01-05] MEDS: GABAPENTIN 300 MG CAP PO SCH ×3 (09:10→21:27)
[2022-01-05] MEDS: HEPARIN 5,000 UNIT/1 ML VIAL SUB-Q SCH ×2 (09:11→21:27)
[2022-01-05] MEDS: SODIUM CHLORIDE 0.9% 1000 ML 1,000 ML IV SCH ×2 (09:11→21:27)
[2022-01-05] MEDS: diphenhydrAMINE 50 MG/ML VIAL IV PRN (17:12)
--- NOTE | 2022-01-05 20:50 | Progress Note ---
Assessment and Plan Assessment and plan: This is a 36 year old transgendered female undergoing gender transformation with silicone injection to buttocks ([place] 2016) and breast implants, heavy drinker on the weekends (bottle of vodka) who presented to [facility] on 12/21 because of adverse drug reaction after reportedly self administration of rocephin and PCN for sore throat. Patient reportedly collapsed while checking in to the emergency department, has complains of severe 10 out of 10 pain in left thigh and has noticeable mottling of skin in thigh and left lower abdomen. Patient underwent a CT of the left leg which showed possible cellulitis with no drainable fluid collection and was started on empiric antibiotics. Patient admitted to the hospital service with diagnosis of acute liver failure, rhabdomyolysis, s/p 4 compartment fasciotomy to left lower extremity Acute liver failure -GI consulted, appreciate recommendations -Per GI: Suspect due to rhabdomyolysis given elevated creatinine kinase levels -If ALT continues to rise recommend MRCP -Abdominal ultrasound showed mild diffuse biliary dilation, obstruction to lesion of the distal common bile duct cannot be excluded consider MRCP, no evidence of gallstones within the gallbladder -PPI -Regular diet -BR: colace -Trend LFTs Compartment syndrome to LLE -Vascular surgery consulted, appreciate recommendations -s/p self admin of IM abx to midthigh -c/o pain, decreased sensation, pulses were dopplarable, paralysis, mottled skin -s/p 4 compartment tracheotomy on 12/21 with vascular surgery -Bilateral lower extremity Doppler ultrasound showed no DVT -Left lower extremity CT with contrast showed appearance of posterior soft tissue complex cellulitis with small subcutaneous lymph nodes, no drainable fluid collections present, contusion could have similar appearance -Bilateral lower extremity arterial duplex showed no significant lower extremity peripheral artery disease -Normal ABIs Peripheral neuropathy -Avoid delirium -Reorientation as needed -Maintain sleep-wake cycle -As needed analgesia -Neurology consulted, appreciate recommendations -Gabapentin HTN -Blood pressure monitoring per protocol -Valsartan -PRN hydralazine Rhabdomyolysis acute kidney injury with vasomotor nephropathy now resolved -Nephrology consulted, appreciate recommendations -Strict intake and output -Renally dose medications -Avoid nephrotoxic medications -MIVF -Sodium bicarb -Trend BMP, CK Hospital course to date: 12/21: Venous ultrasound shows no DVT, Vascular surgery consulted who performed a fasciotomy and plan to transfer patient to [facility] post intervention. Neurology consulted 12/22: Transfer to ICU, GI and neurology consulted. 12/23: Patient will be transferred back to the floor from ICU. Her liver enzymes and creatinine are trending down. Will be started on gabapentin per neurology recommendations and antibiotics discontinued. 12/24: Continue supportive care. CPK slowly improving. Vascular plans for closure of fasciotomy early next week. PT OT evaluation and treatment closure done. Continue wound management. No evidence of withdrawal noted at this time. Continue to monitor LFTs which are also slightly improving. Plan discussed in detail with the patient who verbalized understanding 12/25: Patient seen and examined clinically stable continues to show some improvement. Closure of fasciotomy planned for tomorrow. Renal function is improving. CK ordered and pending 12/26: Patient seen and examined, wbc mildly elevated likely secondary to steroids, will change to po for two additional days and stop, benefit probably already achieved, continue wound dressing, sensory function improved, awaiting wound vac and closure. Patient advised on clinically progress. 12/27: Patient seen and examined awaiting her vascular surgery for closure of fasciotomy. CK is decreasing less than 9000 today. We will continue aggressive IV fluids until we have the resolution below 5000. LFTs on the downward trend also. Leukocytosis appears to have peaked steroids was changed to oral for 2 additional days today is 1 of 2.. Plan of care discussed in detail with the patient who verbalized understanding. 12/28: Left lower extremity compartment syndrome status post fasciotomies. Cau se is still unclear and may represent some allergic reaction. Motor function is unchanged from original exam. Sensory function has improved with full sensation of the foot.vascular surgery to place wound vacs on the leg today. CK improved to the 8000 range today 12/29: Patient underwent excisional debridement of muscle and soft tissue from left leg wound yesterday. Patient also had wound VAC placement left leg fasciotomy incisions. The patient had moderate amount of superficial necrotic muscle in the anterior lateral compartments with minimal amount of superficial necrotic muscle in the posterior compartment. Follow-up culture results. CK levels have improved to 6900 range. AST/ALT continue to trend downward. 12/30: I discussed the case with Dr. Lopez who recommends home wound VAC as well as physical therapy. I also discussed these needs with case management who was attempting to arrange for discharge planning. CK continues to improve with levels in the 4000 range. 12/31: Still awaiting for home wound VAC arrangements to be made. Leukocytosis is much improved down to 13,900 today. LFTs continue to trend down to normal range. CK levels still in the 4000 range. Nephrology has signed off. Anticipate discharge later today or in a.m. 01/01: Still awaiting for home wound VAC arrangements to be made. Laboratories continue to include including LFTs, CK and leukocytosis. 01/02: Still awaiting for home wound VAC arrangements to be made. 01/03: Patient had an episode of syncope while working with PT today. Nurse reports patient lost consciousness for a few seconds and was helped back to the bed. Patient's blood pressure was noted to be hypotensive/orthostatic. We will bolus 500 normal saline IV fluid and monitor orthostatics. Case management reports that wound VAC should be delivered today. LFTs continue to trend down to normal range. CK levels still in the 2000 range. Nephrology has signed off. Anticipate discharge in a.m. given the syncope and once wound VAC arranged. Patient with low-grade temp. We will monitor. 01/04; patient is anxious to go home, wound VAC is delivered to the bedside, continue wound care Multiple social issues, DC planning per case management History Interval history: I have Lower extremity venous Doppler negative for DVT Vital signs noted seen and examined the patient at the bedside Patient's chart and medications reviewed Patient feels slightly better Hospitalist Physical - Constitutional Vitals: Temp Pulse Resp BP Pulse Ox 99.2 F 101 H 16 114/70 100 01/05/22 18:07 01/05/22 18:07 01/05/22 18:07 01/05/22 18:07 01/05/22 18:07 General appearance: Present: no acute distress, well-nourished, obese - EENT Eyes: Present: PERRL, EOM intact - Neck Neck: Present: supple, normal ROM - Respiratory Respiratory effort: normal Respiratory: bilateral: diminished, negative: rales, rhonchi, wheezing - Cardiovascular Rhythm: regular Heart Sounds: Present: S1 & S2 - Extremities Extremities: no ischemia, No edema - Abdominal General gastrointestinal: soft, non-tender, non-distended, normal bowel sounds - Integumentary Integumentary: Present: clear, warm - Psychiatric Psychiatric: appropriate mood/affect - Neurologic Neurologic: moves all extremities Results - Labs CBC & Chem 7: 01/04/22 05:01 01/04/22 05:01 Labs: Laboratory Last Values WBC 10.6 K/mm3 (4.5-11.0) 01/04/22 05:01 RBC 3.21 M/mm3 (3.65-5.03) L 01/04/22 05:01 Hgb 10.7 gm/dl (11.8-15.2) L 01/04/22 05:01 Hct 32.0 % (35.5-45.6) L 01/04/22 05:01 MCV 99 fl (84-94) H 01/04/22 05:01 MCH 33 pg (28-32) H 01/04/22 05:01 MCHC 33 % (32-34) 01/04/22 05:01 RDW 13.3 % (13.2-15.2) 01/04/22 05:01 Plt Count 427 K/mm3 (140-440) 01/04/22 05:01 Lymph % (Auto) 12.9 % (13.4-35.0) L 01/04/22 05:01 [place] % (Auto) 6.9 % (0.0-7.3) 01/04/22 05:01 Eos % (Auto) 0.4 % (0.0-4.3) 01/04/22 05:01 Baso % (Auto) 0.3 % (0.0-1.8) 01/04/22 05:01 Lymph # (Auto) 1.4 K/mm3 (1.2-5.4) 01/04/22 05:01 [place] # (Auto) 0.7 K/mm3 (0.0-0.8) 01/04/22 05:01 Eos # (Auto) 0.0 K/mm3 (0.0-0.4) 01/04/22 05:01 Baso # (Auto) 0.0 K/mm3 (0.0-0.1) 01/04/22 05:01 Add Manual Diff Complete 12/30/21 04:49 Total Counted 100 12/30/21 04:49 Seg Neutrophils % 79.5 % (40.0-70.0) H 01/04/22 05:01 Seg Neuts % (Manual) 83.0 % (40.0-70.0) H 12/30/21 04:49 Band Neutrophils % 2.0 % 12/30/21 04:49 Lymphocytes % (Manual) 5.0 % (13.4-35.0) L 12/30/21 04:49 Reactive Lymphs % (Man) 0 % 12/30/21 04:49 Monocytes % (Manual) 8.0 % (0.0-7.3) H 12/30/21 04:49 Eosinophils % (Manual) 0 % (0.0-4.3) 12/30/21 04:49 Basophils % (Manual) 0 % (0.0-1.8) 12/30/21 04:49 Metamyelocytes % 2.0 % 12/30/21 04:49 Myelocytes % 0 % 12/30/21 04:49 Promyelocytes % 0 % 12/30/21 04:49 Blast Cells % 0 % 12/30/21 04:49 Nucleated RBC % Not Reportable 12/30/21 04:49 Seg Neutrophils # 8.4 K/mm3 (1.8-7.7) H 01/04/22 05:01 Seg Neutrophils # Man 17.1 K/mm3 (1.8-7.7) H 12/30/21 04:49 Band Neutrophils # 0.4 K/mm3 12/30/21 04:49 Lymphocytes # (Manual) 1.0 K/mm3 (1.2-5.4) L 12/30/21 04:49 Abs React Lymphs (Man) 0.0 K/mm3 12/30/21 04:49 Monocytes # (Manual) 1.6 K/mm3 (0.0-0.8) H 12/30/21 04:49 Eosinophils # (Manual) 0.0 K/mm3 (0.0-0.4) 12/30/21 04:49 Basophils # (Manual) 0.0 K/mm3 (0.0-0.1) 12/30/21 04:49 Metamyelocytes # 0.4 K/mm3 12/30/21 04:49 Myelocytes # 0.0 K/mm3 12/30/21 04:49 Promyelocytes # 0.0 K/mm3 12/30/21 04:49 Blast Cells # 0.0 K/mm3 12/30/21 04:49 WBC Morphology Not Reportable 12/30/21 04:49 Hypersegmented Neuts Not Reportable 12/30/21 04:49 Hyposegmented Neuts Rare 12/30/21 04:49 Hypogranular Neuts Not Reportable 12/30/21 04:49 Smudge Cells Not Reportable 12/30/21 04:49 Toxic Granulation Not Reportable 12/30/21 04:49 Toxic Vacuolation Not Reportable 12/30/21 04:49 Dohle Bodies Not Reportable 12/30/21 04:49 Pelger-Huet Anomaly Not Reportable 12/30/21 04:49 [place] Rods Not Reportable 12/30/21 04:49 Platelet Estimate Consistent w auto 12/30/21 04:49 Clumped Platelets Not Reportable 12/30/21 04:49 Plt Clumps, EDTA Not Reportable 12/30/21 04:49 Large Platelets Rare 12/30/21 04:49 Giant Platelets Not Reportable 12/30/21 04:49 Platelet Satelliting Not Reportable 12/30/21 04:49 Plt Morphology Comment Not Reportable 12/30/21 04:49 RBC Morphology Not Reportable 12/30/21 04:49 Dimorphic RBCs Not Reportable 12/30/21 04:49 Polychromasia Not Reportable 12/30/21 04:49 Hypochromasia Not Reportable 12/30/21 04:49 Poikilocytosis Not Reportable 12/30/21 04:49 Anisocytosis Rare 12/30/21 04:49 Microcytosis Not Reportable 12/30/21 04:49 Macrocytosis Rare 12/30/21 04:49 Spherocytes Not Reportable 12/30/21 04:49 Pappenheimer Bodies Not Reportable 12/30/21 04:49 Sickle Cells Not Reportable 12/30/21 04:49 Target Cells Not Reportable 12/30/21 04:49 Tear Drop Cells Not Reportable 12/30/21 04:49 Ovalocytes Not Reportable 12/30/21 04:49 Helmet Cells Not Reportable 12/30/21 04:49 Parsons-[place] Bodies Not Reportable 12/30/21 04:49 [place] Rings Not Reportable 12/30/21 04:49 Powersite Cells Not Reportable 12/30/21 04:49 Bite Cells Not Reportable 12/30/21 04:49 Crenated Cell Not Reportable 12/30/21 04:49 Elliptocytes Not Reportable 12/30/21 04:49 Acanthocytes (Spur) Not Reportable 12/30/21 04:49 Rouleaux Not Reportable 12/30/21 04:49 Hemoglobin C Crystals Not Reportable 12/30/21 04:49 Schistocytes Not Reportable 12/30/21 04:49 Malaria parasites Not Reportable 12/30/21 04:49 [place] Bodies Not Reportable 12/30/21 04:49 Hem Pathologist Commnt No 12/30/21 04:49 PT 13.4 Sec. (12.2-14.9) 12/21/21 13:30 INR 0.92 (0.87-1.13) 12/21/21 13:30 APTT 25.8 Sec. (24.2-36.6) 12/21/21 13:30 Sodium 138 mmol/L (137-145) 01/04/22 05:01 Potassium 3.8 mmol/L (3.6-5.0) 01/04/22 05:01 Chloride 102.8 mmol/L (98-107) 01/04/22 05:01 Carbon Dioxide 27 mmol/L (22-30) 01/04/22 05:01 Anion Gap 12 mmol/L 01/04/22 05:01 BUN 5 mg/dL (9-20) L 01/04/22 05:01 Creatinine 0.6 mg/dL (0.8-1.3) L 01/04/22 05:01 Estimated GFR > 60 ml/min 01/04/22 05:01 BUN/Creatinine Ratio 8 % 01/04/22 05:01 Glucose 105 mg/dL (75-100) H 01/04/22 05:01 Lactic Acid 1.40 mmol/L (0.7-2.0) 12/21/21 13:30 Calcium 8.4 mg/dL (8.4-10.2) 01/04/22 05:01 Phosphorus 2.80 mg/dL (2.5-4.5) 12/24/21 05:17 Magnesium 2.20 mg/dL (1.7-2.3) 12/24/21 05:17 Total Bilirubin 0.50 mg/dL (0.1-1.2) 01/03/22 04:00 Direct Bilirubin < 0.2 mg/dL (0-0.2) 01/03/22 04:00 Indirect Bilirubin 0.3 mg/dL 01/03/22 04:00 AST 93 units/L (5-40) H 01/03/22 04:00 ALT 187 units/L (7-56) H 01/03/22 04:00 Alkaline Phosphatase 85 units/L (35-129) 01/03/22 04:00 Ammonia 37.0 umol/L (25-60) 12/23/21 04:49 Total Creatine Kinase 2431 units/L (55-170) H 01/02/22 05:07 Total Protein 5.3 g/dL (6.3-8.2) L 01/03/22 04:00 Albumin 2.8 g/dL (3.9-5) L 01/03/22 04:00 Albumin/Globulin Ratio 1.1 % 01/03/22 04:00 Amylase 25 units/L (27-131) L 12/23/21 04:49 Lipase 10 units/L (13-60) L 12/23/21 04:49 Coronavirus (PCR) Negative (Negative) 12/22/21 11:40 Hepatitis A IgM Ab Nonreactive (NonReactive) 12/21/21 13:30 Hep Bs Antigen Non-reactive (Negative) 12/21/21 13:30 Hep B Core IgM Ab Non-reactive (NonReactive) 12/21/21 13:30 Hepatitis C Antibody Non-reactive (NonReactive) 12/21/21 13:30 HIV 1&2 Antibody Rapid Non react (Non React) 12/22/21 16:42 HIV P24 Antigen Non react (Non React) 12/22/21 16:42 Kaur/IV: Voiding Method Urinal Active Medications - Current Medications Current Medications: Generic Name Dose Route Start Last Admin Trade Name Freq PRN Reason Stop Dose Admin Acetaminophen 650 mg 01/04/22 22:14 01/05/22 00:08 Acetaminophen 325 Mg Tab PO 650 mg Q6H PRN Administration Pain, Mild (1-3) Albuterol 2.5 mg 12/21/21 06:15 Albuterol 2.5 Mg/3 Ml Nebu IH Q3HRT PRN Shortness Of Breath Albuterol/Ipratropium 1 ampul 12/22/21 08:00 01/05/22 19:42 Ipratropium/Albuterol Sulfate 3 Ml Ampul.Neb IH Not Given BIDRT VLADIMIR Diphenhydramine HCl 25 mg 12/21/21 06:24 01/05/22 17:12 Diphenhydramine 50 Mg/Ml Vial IV 25 mg Q6H PRN Administration Skin Irritation Docusate Sodium 100 mg 12/23/21 22:00 01/05/22 09:09 Docusate Sodium 100 Mg Cap PO 100 mg BID VLADIMIR Administration Famotidine 20 mg 12/26/21 10:00 01/05/22 09:10 Famotidine 20 Mg Tab PO 20 mg BID VLADIMIR Administration Gabapentin 300 mg 01/05/22 08:00 01/05/22 17:12 Gabapentin 300 Mg Cap PO 300 mg TID@0800,1600,2200 VLADIMIR Administration Heparin Sodium (Porcine) 5,000 unit 12/21/21 10:00 01/05/22 09:11 Heparin 5,000 Unit/1 Ml Vial SUB-Q 5,000 unit Q12HR VLADIMIR Administration Hydralazine HCl 10 mg 12/22/21 18:31 12/22/21 18:50 Hydralazine 20 Mg/1 Ml Inj IV 10 mg Q3HR PRN Administration Hypertension Hydromorphone HCl 0.5 mg 12/21/21 06:15 01/04/22 14:05 Hydromorphone 1 Mg/1 Ml Inj IV 0.5 mg Q3H PRN Administration Pain , Severe (7-10) Sodium Chloride 1,000 mls @ 75 mls/hr 01/03/22 01:00 01/05/22 09:11 Nacl 0.9% 1000 Ml IV 75 mls/hr DIRECT VLADIMIR Administration Morphine Sulfate 2 mg 12/21/21 06:15 01/03/22 17:50 Morphine 2 Mg/1 Ml Inj IV 2 mg Q4H PRN Administration Pain, Moderate (4-6) Ondansetron HCl 4 mg 12/21/21 06:15 01/03/22 10:38 Ondansetron 4 Mg/2 Ml Inj IV 4 mg Q8H PRN Administration Nausea And Vomiting Sodium Chloride 10 ml 12/21/21 10:00 01/05/22 11:32 Sodium Chloride 0.9% 10 Ml Flush Syringe IV 10 ml BID VLADIMIR Administration Sodium Chloride 10 ml 12/21/21 06:15 12/30/21 01:09 Sodium Chloride 0.9% 10 Ml Flush Syringe IV 10 ml PRN PRN Administration LINE FLUSH Valsartan 160 mg 12/22/21 22:00 01/05/22 09:09 Valsartan 160mg Tab PO 160 mg DAILY VLADIMIR Administration Nutrition/Malnutrition Assess - Dietary Evaluation Nutrition/Malnutrition Findings: Nutrition Notes Start: 12/28/21 16:45 Freq: Status: Active Protocol: Document 12/30/21 12:23 OPAL (Rec: 12/30/21 12:43 OPAL [id number]) Nutrition Notes Initial or Follow up Brief Note Current Diagnosis Hypertension Other Pertinent Diagnosis Rabdomyolysis, Liver Failure, s/p L-LE 4 Compartment Fasciotomy w/Debridem. Current Diet Regular Diet + Dietary Supplements. (since B 12/29). Height 5 ft 6 in Weight 86.183 kg [place] Body Weight (kg) 64.54 BMI 30.7 Weight change and time frame No bnody weight change reporterd in 2 days. Weight Status Obese Subjective/Other Information RD consult for routine F/U on dietary advancement. Pt is now on PO diet, but no reports available on Pt's PO intake of meals at the time, will assess at F/U. Pt is on Room Air, O2 saturation @ 97%, according to Physical Assessment History notes. Procedure on 12/28: Excisinal debridement of muscle and soft tissue from L-LE wound, and woundVAC placement; Leg fasciotomy lateral and medial incisions, Well tolerated, according to Operative Report. Percent of energy/protein needs met: Prescribed Regular Diet provides for energy/protein needs (2,289 Kcal/89 g) during LOS; additionally, Dietary Supplements will support wound healing processes with 190 Kcal and 5 g of protein. #1 Nutrition Diagnosis Increased nutrient needs ( specify in comment below) Comments: Protein to support wound healing processes. Diagnosis Progress(for reassessment Continues documentation) Is patient on ventilator? No Is Patient Ambulatory and/or Out of Bed No REE-([facility]-confined to bed) 2083.920 Kcal/Kg value to use for calculation 19 Approximate Energy Requirements Using 1637 kcal/Kg Calculation Used for Recommendations Kcal/kg Additional Notes Protein: 1.25-1.5 g/Kg AdjBW; 85-114 g/day. Fluids: 1 ml/Kcal, or as per MD. Nutrition Intervention Change Diet Order: Continue Regular Diet. Add Supplement/Snack (indicate name/kcal Continue 28.8 g pkt Calvin; BID /protein ) . Provides kCal: 190 Provides Protein (gm) 5 Goal #1 Support, through dietary supplementation, wound healing processes during LOS. Goal #2 Adjust the dietary intervention to better serve Pt's needs and clinical conditions during LOS. Goal #3 Maintain body weight within +/ -3% of admission body weight during LOS. Follow-Up By: 01/06/22 Additional Comments Continue monitoring food tolerance, %PO intake of meals , and BM.
--- NOTE | 2022-01-06 08:25 | Progress Note ---
Assessment and Plan Assessment and plan: This is a 36 year old transgendered female undergoing gender transformation with silicone injection to buttocks ([place] 2016) and breast implants, heavy drinker on the weekends (bottle of vodka) who presented to [facility] on 12/21 because of adverse drug reaction after reportedly self administration of rocephin and PCN for sore throat. Patient reportedly collapsed while checking in to the emergency department, has complains of severe 10 out of 10 pain in left thigh and has noticeable mottling of skin in thigh and left lower abdomen. Patient underwent a CT of the left leg which showed possible cellulitis with no drainable fluid collection and was started on empiric antibiotics. Patient admitted to the hospital service with diagnosis of acute liver failure, rhabdomyolysis, s/p 4 compartment fasciotomy to left lower extremity Acute liver failure -GI consulted, appreciate recommendations -Per GI: Suspect due to rhabdomyolysis given elevated creatinine kinase levels -If ALT continues to rise recommend MRCP -Abdominal ultrasound showed mild diffuse biliary dilation, obstruction to lesion of the distal common bile duct cannot be excluded consider MRCP, no evidence of gallstones within the gallbladder -PPI -Regular diet -BR: colace -Trend LFTs Compartment syndrome to LLE -Vascular surgery consulted, appreciate recommendations -s/p self admin of IM abx to midthigh -c/o pain, decreased sensation, pulses were dopplarable, paralysis, mottled skin -s/p 4 compartment tracheotomy on 12/21 with vascular surgery -Bilateral lower extremity Doppler ultrasound showed no DVT -Left lower extremity CT with contrast showed appearance of posterior soft tissue complex cellulitis with small subcutaneous lymph nodes, no drainable fluid collections present, contusion could have similar appearance -Bilateral lower extremity arterial duplex showed no significant lower extremity peripheral artery disease -Normal ABIs Peripheral neuropathy -Avoid delirium -Reorientation as needed -Maintain sleep-wake cycle -As needed analgesia -Neurology consulted, appreciate recommendations -Gabapentin HTN -Blood pressure monitoring per protocol -Valsartan -PRN hydralazine Rhabdomyolysis acute kidney injury with vasomotor nephropathy now resolved -Nephrology consulted, appreciate recommendations -Strict intake and output -Renally dose medications -Avoid nephrotoxic medications -MIVF -Sodium bicarb -Trend BMP, CK Hospital course to date: 12/21: Venous ultrasound shows no DVT, Vascular surgery consulted who performed a fasciotomy and plan to transfer patient to [facility] post intervention. Neurology consulted 12/22: Transfer to ICU, GI and neurology consulted. 12/23: Patient will be transferred back to the floor from ICU. Her liver enzymes and creatinine are trending down. Will be started on gabapentin per neurology recommendations and antibiotics discontinued. 12/24: Continue supportive care. CPK slowly improving. Vascular plans for closure of fasciotomy early next week. PT OT evaluation and treatment closure done. Continue wound management. No evidence of withdrawal noted at this time. Continue to monitor LFTs which are also slightly improving. Plan discussed in detail with the patient who verbalized understanding 12/25: Patient seen and examined clinically stable continues to show some improvement. Closure of fasciotomy planned for tomorrow. Renal function is improving. CK ordered and pending 12/26: Patient seen and examined, wbc mildly elevated likely secondary to steroids, will change to po for two additional days and stop, benefit probably already achieved, continue wound dressing, sensory function improved, awaiting wound vac and closure. Patient advised on clinically progress. 12/27: Patient seen and examined awaiting her vascular surgery for closure of fasciotomy. CK is decreasing less than 9000 today. We will continue aggressive IV fluids until we have the resolution below 5000. LFTs on the downward trend also. Leukocytosis appears to have peaked steroids was changed to oral for 2 additional days today is 1 of 2.. Plan of care discussed in detail with the patient who verbalized understanding. 12/28: Left lower extremity compartment syndrome status post fasciotomies. Cau se is still unclear and may represent some allergic reaction. Motor function is unchanged from original exam. Sensory function has improved with full sensation of the foot.vascular surgery to place wound vacs on the leg today. CK improved to the 8000 range today 12/29: Patient underwent excisional debridement of muscle and soft tissue from left leg wound yesterday. Patient also had wound VAC placement left leg fasciotomy incisions. The patient had moderate amount of superficial necrotic muscle in the anterior lateral compartments with minimal amount of superficial necrotic muscle in the posterior compartment. Follow-up culture results. CK levels have improved to 6900 range. AST/ALT continue to trend downward. 12/30: I discussed the case with Dr. Lopez who recommends home wound VAC as well as physical therapy. I also discussed these needs with case management who was attempting to arrange for discharge planning. CK continues to improve with levels in the 4000 range. 12/31: Still awaiting for home wound VAC arrangements to be made. Leukocytosis is much improved down to 13,900 today. LFTs continue to trend down to normal range. CK levels still in the 4000 range. Nephrology has signed off. Anticipate discharge later today or in a.m. 01/01: Still awaiting for home wound VAC arrangements to be made. Laboratories continue to include including LFTs, CK and leukocytosis. 01/02: Still awaiting for home wound VAC arrangements to be made. 01/03: Patient had an episode of syncope while working with PT today. Nurse reports patient lost consciousness for a few seconds and was helped back to the bed. Patient's blood pressure was noted to be hypotensive/orthostatic. We will bolus 500 normal saline IV fluid and monitor orthostatics. Case management reports that wound VAC should be delivered today. LFTs continue to trend down to normal range. CK levels still in the 2000 range. Nephrology has signed off. Anticipate discharge in a.m. given the syncope and once wound VAC arranged. Patient with low-grade temp. We will monitor. 01/04; patient is anxious to go home, wound VAC is delivered to the bedside, continue wound care Multiple social issues, DC planning per case management, left lower extremity Doppler negative for DVT 01/05; discharge planning, multiple social issues 01/06; continue current management, wound VAC in place, DC planning issues History Interval history: I have seen and examined the patient at the bedside Patient's chart and medications reviewed Patient states he feels better No new complaints Wound VAC functioning Hospitalist Physical - Constitutional Vitals: Temp Pulse Resp BP Pulse Ox 99.2 F 101 H 16 114/70 98 01/05/22 18:07 01/05/22 18:07 01/05/22 18:07 01/05/22 18:07 01/05/22 21:30 General appearance: Present: no acute distress, well-nourished, obese - EENT Eyes: Present: PERRL, EOM intact - Neck Neck: Present: supple, normal ROM - Respiratory Respiratory effort: normal Respiratory: bilateral: diminished, negative: rales, rhonchi, wheezing - Cardiovascular Rhythm: regular Heart Sounds: Present: S1 & S2 - Extremities Extremities: abnormal (Left lower extremity wound VAC in place mild swelling) Extremity abnormal: edema - Abdominal General gastrointestinal: soft, non-tender, non-distended, normal bowel sounds - Integumentary Integumentary: Present: clear, warm - Psychiatric Psychiatric: appropriate mood/affect, cooperative - Neurologic Neurologic: moves all extremities Results - Labs CBC & Chem 7: 01/04/22 05:01 01/06/22 08:55 Labs: Laboratory Last Values WBC 10.6 K/mm3 (4.5-11.0) 01/04/22 05:01 RBC 3.21 M/mm3 (3.65-5.03) L 01/04/22 05:01 Hgb 10.7 gm/dl (11.8-15.2) L 01/04/22 05:01 Hct 32.0 % (35.5-45.6) L 01/04/22 05:01 MCV 99 fl (84-94) H 01/04/22 05:01 MCH 33 pg (28-32) H 01/04/22 05:01 MCHC 33 % (32-34) 01/04/22 05:01 RDW 13.3 % (13.2-15.2) 01/04/22 05:01 Plt Count 427 K/mm3 (140-440) 01/04/22 05:01 Lymph % (Auto) 12.9 % (13.4-35.0) L 01/04/22 05:01 [place] % (Auto) 6.9 % (0.0-7.3) 01/04/22 05:01 Eos % (Auto) 0.4 % (0.0-4.3) 01/04/22 05:01 Baso % (Auto) 0.3 % (0.0-1.8) 01/04/22 05:01 Lymph # (Auto) 1.4 K/mm3 (1.2-5.4) 01/04/22 05:01 [place] # (Auto) 0.7 K/mm3 (0.0-0.8) 01/04/22 05:01 Eos # (Auto) 0.0 K/mm3 (0.0-0.4) 01/04/22 05:01 Baso # (Auto) 0.0 K/mm3 (0.0-0.1) 01/04/22 05:01 Add Manual Diff Complete 12/30/21 04:49 Total Counted 100 12/30/21 04:49 Seg Neutrophils % 79.5 % (40.0-70.0) H 01/04/22 05:01 Seg Neuts % (Manual) 83.0 % (40.0-70.0) H 12/30/21 04:49 Band Neutrophils % 2.0 % 12/30/21 04:49 Lymphocytes % (Manual) 5.0 % (13.4-35.0) L 12/30/21 04:49 Reactive Lymphs % (Man) 0 % 12/30/21 04:49 Monocytes % (Manual) 8.0 % (0.0-7.3) H 12/30/21 04:49 Eosinophils % (Manual) 0 % (0.0-4.3) 12/30/21 04:49 Basophils % (Manual) 0 % (0.0-1.8) 12/30/21 04:49 Metamyelocytes % 2.0 % 12/30/21 04:49 Myelocytes % 0 % 12/30/21 04:49 Promyelocytes % 0 % 12/30/21 04:49 Blast Cells % 0 % 12/30/21 04:49 Nucleated RBC % Not Reportable 12/30/21 04:49 Seg Neutrophils # 8.4 K/mm3 (1.8-7.7) H 01/04/22 05:01 Seg Neutrophils # Man 17.1 K/mm3 (1.8-7.7) H 12/30/21 04:49 Band Neutrophils # 0.4 K/mm3 12/30/21 04:49 Lymphocytes # (Manual) 1.0 K/mm3 (1.2-5.4) L 12/30/21 04:49 Abs React Lymphs (Man) 0.0 K/mm3 12/30/21 04:49 Monocytes # (Manual) 1.6 K/mm3 (0.0-0.8) H 12/30/21 04:49 Eosinophils # (Manual) 0.0 K/mm3 (0.0-0.4) 12/30/21 04:49 Basophils # (Manual) 0.0 K/mm3 (0.0-0.1) 12/30/21 04:49 Metamyelocytes # 0.4 K/mm3 12/30/21 04:49 Myelocytes # 0.0 K/mm3 12/30/21 04:49 Promyelocytes # 0.0 K/mm3 12/30/21 04:49 Blast Cells # 0.0 K/mm3 12/30/21 04:49 WBC Morphology Not Reportable 12/30/21 04:49 Hypersegmented Neuts Not Reportable 12/30/21 04:49 Hyposegmented Neuts Rare 12/30/21 04:49 Hypogranular Neuts Not Reportable 12/30/21 04:49 Smudge Cells Not Reportable 12/30/21 04:49 Toxic Granulation Not Reportable 12/30/21 04:49 Toxic Vacuolation Not Reportable 12/30/21 04:49 Dohle Bodies Not Reportable 12/30/21 04:49 Pelger-Huet Anomaly Not Reportable 12/30/21 04:49 [place] Rods Not Reportable 12/30/21 04:49 Platelet Estimate Consistent w auto 12/30/21 04:49 Clumped Platelets Not Reportable 12/30/21 04:49 Plt Clumps, EDTA Not Reportable 12/30/21 04:49 Large Platelets Rare 12/30/21 04:49 Giant Platelets Not Reportable 12/30/21 04:49 Platelet Satelliting Not Reportable 12/30/21 04:49 Plt Morphology Comment Not Reportable 12/30/21 04:49 RBC Morphology Not Reportable 12/30/21 04:49 Dimorphic RBCs Not Reportable 12/30/21 04:49 Polychromasia Not Reportable 12/30/21 04:49 Hypochromasia Not Reportable 12/30/21 04:49 Poikilocytosis Not Reportable 12/30/21 04:49 Anisocytosis Rare 12/30/21 04:49 Microcytosis Not Reportable 12/30/21 04:49 Macrocytosis Rare 12/30/21 04:49 Spherocytes Not Reportable 12/30/21 04:49 Pappenheimer Bodies Not Reportable 12/30/21 04:49 Sickle Cells Not Reportable 12/30/21 04:49 Target Cells Not Reportable 12/30/21 04:49 Tear Drop Cells Not Reportable 12/30/21 04:49 Ovalocytes Not Reportable 12/30/21 04:49 Helmet Cells Not Reportable 12/30/21 04:49 [place] Bodies Not Reportable 12/30/21 04:49 [place] Rings Not Reportable 12/30/21 04:49 [place] Cells Not Reportable 12/30/21 04:49 Bite Cells Not Reportable 12/30/21 04:49 Crenated Cell Not Reportable 12/30/21 04:49 Elliptocytes Not Reportable 12/30/21 04:49 Acanthocytes (Spur) Not Reportable 12/30/21 04:49 Rouleaux Not Reportable 12/30/21 04:49 Hemoglobin C Crystals Not Reportable 12/30/21 04:49 Schistocytes Not Reportable 12/30/21 04:49 Malaria parasites Not Reportable 12/30/21 04:49 [place] Bodies Not Reportable 12/30/21 04:49 Hem Pathologist Commnt No 12/30/21 04:49 PT 13.4 Sec. (12.2-14.9) 12/21/21 13:30 INR 0.92 (0.87-1.13) 12/21/21 13:30 APTT 25.8 Sec. (24.2-36.6) 12/21/21 13:30 Sodium 138 mmol/L (137-145) 01/04/22 05:01 Potassium 3.8 mmol/L (3.6-5.0) 01/04/22 05:01 Chloride 102.8 mmol/L (98-107) 01/04/22 05:01 Carbon Dioxide 27 mmol/L (22-30) 01/04/22 05:01 Anion Gap 12 mmol/L 01/04/22 05:01 BUN 5 mg/dL (9-20) L 01/04/22 05:01 Creatinine 0.6 mg/dL (0.8-1.3) L 01/04/22 05:01 Estimated GFR > 60 ml/min 01/04/22 05:01 BUN/Creatinine Ratio 8 % 01/04/22 05:01 Glucose 105 mg/dL (75-100) H 01/04/22 05:01 Lactic Acid 1.40 mmol/L (0.7-2.0) 12/21/21 13:30 Calcium 8.4 mg/dL (8.4-10.2) 01/04/22 05:01 Phosphorus 2.80 mg/dL (2.5-4.5) 12/24/21 05:17 Magnesium 2.20 mg/dL (1.7-2.3) 12/24/21 05:17 Total Bilirubin 0.50 mg/dL (0.1-1.2) 01/03/22 04:00 Direct Bilirubin < 0.2 mg/dL (0-0.2) 01/03/22 04:00 Indirect Bilirubin 0.3 mg/dL 01/03/22 04:00 AST 93 units/L (5-40) H 01/03/22 04:00 ALT 187 units/L (7-56) H 01/03/22 04:00 Alkaline Phosphatase 85 units/L (35-129) 01/03/22 04:00 Ammonia 37.0 umol/L (25-60) 12/23/21 04:49 Total Creatine Kinase 2431 units/L (55-170) H 01/02/22 05:07 Total Protein 5.3 g/dL (6.3-8.2) L 01/03/22 04:00 Albumin 2.8 g/dL (3.9-5) L 01/03/22 04:00 Albumin/Globulin Ratio 1.1 % 01/03/22 04:00 Amylase 25 units/L (27-131) L 12/23/21 04:49 Lipase 10 units/L (13-60) L 12/23/21 04:49 Coronavirus (PCR) Negative (Negative) 12/22/21 11:40 Hepatitis A IgM Ab Nonreactive (NonReactive) 12/21/21 13:30 Hep Bs Antigen Non-reactive (Negative) 12/21/21 13:30 Hep B Core IgM Ab Non-reactive (NonReactive) 12/21/21 13:30 Hepatitis C Antibody Non-reactive (NonReactive) 12/21/21 13:30 HIV 1&2 Antibody Rapid Non react (Non React) 12/22/21 16:42 HIV P24 Antigen Non react (Non React) 12/22/21 16:42 Kaur/IV: Voiding Method Urinal Active Medications - Current Medications Current Medications: Generic Name Dose Route Start Last Admin Trade Name Freq PRN Reason Stop Dose Admin Acetaminophen 650 mg 01/04/22 22:14 01/05/22 00:08 Acetaminophen 325 Mg Tab PO 650 mg Q6H PRN Administration Pain, Mild (1-3) Albuterol 2.5 mg 12/21/21 06:15 Albuterol 2.5 Mg/3 Ml Nebu IH Q3HRT PRN Shortness Of Breath Albuterol/Ipratropium 1 ampul 12/22/21 08:00 01/05/22 19:42 Ipratropium/Albuterol Sulfate 3 Ml Ampul.Neb IH Not Given BIDRT VLADIMIR Diphenhydramine HCl 25 mg 12/21/21 06:24 01/05/22 17:12 Diphenhydramine 50 Mg/Ml Vial IV 25 mg Q6H PRN Administration Skin Irritation Docusate Sodium 100 mg 12/23/21 22:00 01/05/22 21:27 Docusate Sodium 100 Mg Cap PO 100 mg BID VLADIMIR Administration Famotidine 20 mg 12/26/21 10:00 01/05/22 21:27 Famotidine 20 Mg Tab PO 20 mg BID VLADIMIR Administration Gabapentin 300 mg 01/05/22 08:00 01/05/22 21:27 Gabapentin 300 Mg Cap PO 300 mg TID@0800,1600,2200 VLADIMIR Administration Heparin Sodium (Porcine) 5,000 unit 12/21/21 10:00 01/05/22 21:27 Heparin 5,000 Unit/1 Ml Vial SUB-Q 5,000 unit Q12HR VLADIMIR Administration Hydralazine HCl 10 mg 12/22/21 18:31 12/22/21 18:50 Hydralazine 20 Mg/1 Ml Inj IV 10 mg Q3HR PRN Administration Hypertension Hydromorphone HCl 0.5 mg 12/21/21 06:15 01/04/22 14:05 Hydromorphone 1 Mg/1 Ml Inj IV 0.5 mg Q3H PRN Administration Pain , Severe (7-10) Sodium Chloride 1,000 mls @ 75 mls/hr 01/03/22 01:00 01/05/22 21:27 Nacl 0.9% 1000 Ml IV 75 mls/hr DIRECT VLADIMIR Administration Morphine Sulfate 2 mg 12/21/21 06:15 01/03/22 17:50 Morphine 2 Mg/1 Ml Inj IV 2 mg Q4H PRN Administration Pain, Moderate (4-6) Ondansetron HCl 4 mg 12/21/21 06:15 01/03/22 10:38 Ondansetron 4 Mg/2 Ml Inj IV 4 mg Q8H PRN Administration Nausea And Vomiting Sodium Chloride 10 ml 12/21/21 10:00 01/05/22 21:59 Sodium Chloride 0.9% 10 Ml Flush Syringe IV 10 ml BID VLADIMIR Administration Sodium Chloride 10 ml 12/21/21 06:15 12/30/21 01:09 Sodium Chloride 0.9% 10 Ml Flush Syringe IV 10 ml PRN PRN Administration LINE FLUSH Valsartan 160 mg 12/22/21 22:00 01/05/22 09:09 Valsartan 160mg Tab PO 160 mg DAILY VLADIMIR Administration Nutrition/Malnutrition Assess - Dietary Evaluation Nutrition/Malnutrition Findings: Nutrition Notes Start: 12/28/21 16:45 Freq: Status: Active Protocol: Document 12/30/21 12:23 OPAL (Rec: 12/30/21 12:43 OPAL [id number]) Nutrition Notes Initial or Follow up Brief Note Current Diagnosis Hypertension Other Pertinent Diagnosis Rabdomyolysis, Liver Failure, s/p L-LE 4 Compartment Fasciotomy w/Debridem. Current Diet Regular Diet + Dietary Supplements. (since B 12/29). Height 5 ft 6 in Weight 86.183 kg [place] Body Weight (kg) 64.54 BMI 30.7 Weight change and time frame No bnody weight change reporterd in 2 days. Weight Status Obese Subjective/Other Information RD consult for routine F/U on dietary advancement. Pt is now on PO diet, but no reports available on Pt's PO intake of meals at the time, will assess at F/U. Pt is on Room Air, O2 saturation @ 97%, according to Physical Assessment History notes. Procedure on 12/28: Excisinal debridement of muscle and soft tissue from L-LE wound, and woundVAC placement; Leg fasciotomy lateral and medial incisions, Well tolerated, according to Operative Report. Percent of energy/protein needs met: Prescribed Regular Diet provides for energy/protein needs (2,289 Kcal/89 g) during LOS; additionally, Dietary Supplements will support wound healing processes with 190 Kcal and 5 g of protein. #1 Nutrition Diagnosis Increased nutrient needs ( specify in comment below) Comments: Protein to support wound healing processes. Diagnosis Progress(for reassessment Continues documentation) Is patient on ventilator? No Is Patient Ambulatory and/or Out of Bed No REE-([facility]-confined to bed) 2083.920 Kcal/Kg value to use for calculation 19 Approximate Energy Requirements Using 1637 kcal/Kg Calculation Used for Recommendations Kcal/kg Additional Notes Protein: 1.25-1.5 g/Kg AdjBW; 85-114 g/day. Fluids: 1 ml/Kcal, or as per MD. Nutrition Intervention Change Diet Order: Continue Regular Diet. Add Supplement/Snack (indicate name/kcal Continue 28.8 g pkt Calvin; BID /protein ) . Provides kCal: 190 Provides Protein (gm) 5 Goal #1 Support, through dietary supplementation, wound healing processes during LOS. Goal #2 Adjust the dietary intervention to better serve Pt's needs and clinical conditions during LOS. Goal #3 Maintain body weight within +/ -3% of admission body weight during LOS. Follow-Up By: 01/06/22 Additional Comments Continue monitoring food tolerance, %PO intake of meals , and BM.
[2022-01-06] MEDS: IPRATROPIUM/ALBUTEROL SULFATE 3 ML AMPUL.NEB IH SCH ×2 (08:48→21:06)
[2022-01-06] MEDS: GABAPENTIN 300 MG CAP PO SCH ×3 (09:25→22:06)
[2022-01-06] MEDS: DOCUSATE SODIUM 100 MG CAP PO SCH ×2 (09:26→22:06)
[2022-01-06] MEDS: HEPARIN 5,000 UNIT/1 ML VIAL SUB-Q SCH ×2 (09:26→22:06)
[2022-01-06] MEDS: VALSARTAN 160MG TAB PO SCH (09:26)
[2022-01-06] MEDS: FAMOTIDINE 20 MG TAB PO SCH ×2 (09:26→22:06)
[2022-01-06 09:27] LABS: Alanine Aminotransferase 130 units/L (7-56); Albumin 2.9 g/dL (3.9-5); Blood Urea Nitrogen 5 mg/dL (9-20); Calcium 8.8 mg/dL (8.4-10.2); Hemolysis Index 4
[2022-01-06 09:30] LABS: BUN/Creatinine Ratio 7
[2022-01-06] MEDS: SODIUM CHLORIDE 0.9% 1000 ML 1,000 ML IV SCH (09:30)
[2022-01-07] MEDS: SODIUM CHLORIDE 0.9% 1000 ML 1,000 ML IV SCH (03:45)
[2022-01-07] MEDS: IPRATROPIUM/ALBUTEROL SULFATE 3 ML AMPUL.NEB IH SCH (08:25)
--- NOTE | 2022-01-07 08:45 | Progress Note ---
Assessment and Plan Assessment and plan: This is a 36 year old transgendered female undergoing gender transformation with silicone injection to buttocks ([place] 2016) and breast implants, heavy drinker on the weekends (bottle of vodka) who presented to [facility] on 12/21 because of adverse drug reaction after reportedly self administration of rocephin and PCN for sore throat. Patient reportedly collapsed while checking in to the emergency department, has complains of severe 10 out of 10 pain in left thigh and has noticeable mottling of skin in thigh and left lower abdomen. Patient underwent a CT of the left leg which showed possible cellulitis with no drainable fluid collection and was started on empiric antibiotics. Patient admitted to the hospital service with diagnosis of acute liver failure, rhabdomyolysis, s/p 4 compartment fasciotomy to left lower extremity Acute liver failure -GI consulted, appreciate recommendations -Per GI: Suspect due to rhabdomyolysis given elevated creatinine kinase levels -If ALT continues to rise recommend MRCP -Abdominal ultrasound showed mild diffuse biliary dilation, obstruction to lesion of the distal common bile duct cannot be excluded consider MRCP, no evidence of gallstones within the gallbladder -PPI -Regular diet -BR: colace -Trend LFTs Compartment syndrome to LLE -Vascular surgery consulted, appreciate recommendations -s/p self admin of IM abx to midthigh -c/o pain, decreased sensation, pulses were dopplarable, paralysis, mottled skin -s/p 4 compartment tracheotomy on 12/21 with vascular surgery -Bilateral lower extremity Doppler ultrasound showed no DVT -Left lower extremity CT with contrast showed appearance of posterior soft tissue complex cellulitis with small subcutaneous lymph nodes, no drainable fluid collections present, contusion could have similar appearance -Bilateral lower extremity arterial duplex showed no significant lower extremity peripheral artery disease -Normal ABIs Peripheral neuropathy -Avoid delirium -Reorientation as needed -Maintain sleep-wake cycle -As needed analgesia -Neurology consulted, appreciate recommendations -Gabapentin HTN -Blood pressure monitoring per protocol -Valsartan -PRN hydralazine Rhabdomyolysis acute kidney injury with vasomotor nephropathy now resolved -Nephrology consulted, appreciate recommendations -Strict intake and output -Renally dose medications -Avoid nephrotoxic medications -MIVF -Sodium bicarb -Trend BMP, CK Hospital course to date: 12/21: Venous ultrasound shows no DVT, Vascular surgery consulted who performed a fasciotomy and plan to transfer patient to [facility] post intervention. Neurology consulted 12/22: Transfer to ICU, GI and neurology consulted. 12/23: Patient will be transferred back to the floor from ICU. Her liver enzymes and creatinine are trending down. Will be started on gabapentin per neurology recommendations and antibiotics discontinued. 12/24: Continue supportive care. CPK slowly improving. Vascular plans for closure of fasciotomy early next week. PT OT evaluation and treatment closure done. Continue wound management. No evidence of withdrawal noted at this time. Continue to monitor LFTs which are also slightly improving. Plan discussed in detail with the patient who verbalized understanding 12/25: Patient seen and examined clinically stable continues to show some improvement. Closure of fasciotomy planned for tomorrow. Renal function is improving. CK ordered and pending 12/26: Patient seen and examined, wbc mildly elevated likely secondary to steroids, will change to po for two additional days and stop, benefit probably already achieved, continue wound dressing, sensory function improved, awaiting wound vac and closure. Patient advised on clinically progress. 12/27: Patient seen and examined awaiting her vascular surgery for closure of fasciotomy. CK is decreasing less than 9000 today. We will continue aggressive IV fluids until we have the resolution below 5000. LFTs on the downward trend also. Leukocytosis appears to have peaked steroids was changed to oral for 2 additional days today is 1 of 2.. Plan of care discussed in detail with the patient who verbalized understanding. 12/28: Left lower extremity compartment syndrome status post fasciotomies. Cau se is still unclear and may represent some allergic reaction. Motor function is unchanged from original exam. Sensory function has improved with full sensation of the foot.vascular surgery to place wound vacs on the leg today. CK improved to the 8000 range today 12/29: Patient underwent excisional debridement of muscle and soft tissue from left leg wound yesterday. Patient also had wound VAC placement left leg fasciotomy incisions. The patient had moderate amount of superficial necrotic muscle in the anterior lateral compartments with minimal amount of superficial necrotic muscle in the posterior compartment. Follow-up culture results. CK levels have improved to 6900 range. AST/ALT continue to trend downward. 12/30: I discussed the case with Dr. Lopez who recommends home wound VAC as well as physical therapy. I also discussed these needs with case management who was attempting to arrange for discharge planning. CK continues to improve with levels in the 4000 range. 12/31: Still awaiting for home wound VAC arrangements to be made. Leukocytosis is much improved down to 13,900 today. LFTs continue to trend down to normal range. CK levels still in the 4000 range. Nephrology has signed off. Anticipate discharge later today or in a.m. 01/01: Still awaiting for home wound VAC arrangements to be made. Laboratories continue to include including LFTs, CK and leukocytosis. 01/02: Still awaiting for home wound VAC arrangements to be made. 01/03: Patient had an episode of syncope while working with PT today. Nurse reports patient lost consciousness for a few seconds and was helped back to the bed. Patient's blood pressure was noted to be hypotensive/orthostatic. We will bolus 500 normal saline IV fluid and monitor orthostatics. Case management reports that wound VAC should be delivered today. LFTs continue to trend down to normal range. CK levels still in the 2000 range. Nephrology has signed off. Anticipate discharge in a.m. given the syncope and once wound VAC arranged. Patient with low-grade temp. We will monitor. 01/04; patient is anxious to go home, wound VAC is delivered to the bedside, continue wound care Multiple social issues, DC planning per case management, left lower extremity Doppler negative for DVT 01/05; discharge planning, multiple social issues 01/06; continue current management, wound VAC in place, DC planning issues 01/07; discharge planning per case management, setting up wound VAC, setting up outpatient wound care Setting up follow-up visits with physicians, patient has multiple social issues and no payer source Continue current management discharge when medically stable History Interval history: Seen and examined the patient at the bedside Patient's chart and medications reviewed Patient feels slightly better Wound VAC is functional No new complaints anxious to go home Vital signs noted Hospitalist Physical - Constitutional Vitals: Temp Pulse Resp BP Pulse Ox 98.6 F 103 H 20 111/62 98 01/07/22 06:04 01/07/22 06:04 01/07/22 06:04 01/07/22 06:04 01/07/22 08:22 General appearance: Present: no acute distress, well-nourished, obese - EENT Eyes: Present: PERRL, EOM intact - Neck Neck: Present: supple, normal ROM - Respiratory Respiratory effort: normal Respiratory: bilateral: diminished, negative: rales, rhonchi, wheezing - Cardiovascular Rhythm: regular Heart Sounds: Present: S1 & S2 - Extremities Extremities: abnormal (Left lower extremity swelling wound VAC in place) Extremity abnormal: edema - Abdominal General gastrointestinal: soft, non-tender, non-distended, normal bowel sounds - Integumentary Integumentary: Present: clear, warm - Psychiatric Psychiatric: appropriate mood/affect, cooperative - Neurologic Neurologic: CNII-XII intact, moves all extremities Results - Labs CBC & Chem 7: 01/04/22 05:01 01/06/22 08:55 Labs: Laboratory Last Values WBC 10.6 K/mm3 (4.5-11.0) 01/04/22 05:01 RBC 3.21 M/mm3 (3.65-5.03) L 01/04/22 05:01 Hgb 10.7 gm/dl (11.8-15.2) L 01/04/22 05:01 Hct 32.0 % (35.5-45.6) L 01/04/22 05:01 MCV 99 fl (84-94) H 01/04/22 05:01 MCH 33 pg (28-32) H 01/04/22 05:01 MCHC 33 % (32-34) 01/04/22 05:01 RDW 13.3 % (13.2-15.2) 01/04/22 05:01 Plt Count 427 K/mm3 (140-440) 01/04/22 05:01 Lymph % (Auto) 12.9 % (13.4-35.0) L 01/04/22 05:01 [place] % (Auto) 6.9 % (0.0-7.3) 01/04/22 05:01 Eos % (Auto) 0.4 % (0.0-4.3) 01/04/22 05:01 Baso % (Auto) 0.3 % (0.0-1.8) 01/04/22 05:01 Lymph # (Auto) 1.4 K/mm3 (1.2-5.4) 01/04/22 05:01 [place] # (Auto) 0.7 K/mm3 (0.0-0.8) 01/04/22 05:01 Eos # (Auto) 0.0 K/mm3 (0.0-0.4) 01/04/22 05:01 Baso # (Auto) 0.0 K/mm3 (0.0-0.1) 01/04/22 05:01 Add Manual Diff Complete 12/30/21 04:49 Total Counted 100 12/30/21 04:49 Seg Neutrophils % 79.5 % (40.0-70.0) H 01/04/22 05:01 Seg Neuts % (Manual) 83.0 % (40.0-70.0) H 12/30/21 04:49 Band Neutrophils % 2.0 % 12/30/21 04:49 Lymphocytes % (Manual) 5.0 % (13.4-35.0) L 12/30/21 04:49 Reactive Lymphs % (Man) 0 % 12/30/21 04:49 Monocytes % (Manual) 8.0 % (0.0-7.3) H 12/30/21 04:49 Eosinophils % (Manual) 0 % (0.0-4.3) 12/30/21 04:49 Basophils % (Manual) 0 % (0.0-1.8) 12/30/21 04:49 Metamyelocytes % 2.0 % 12/30/21 04:49 Myelocytes % 0 % 12/30/21 04:49 Promyelocytes % 0 % 12/30/21 04:49 Blast Cells % 0 % 12/30/21 04:49 Nucleated RBC % Not Reportable 12/30/21 04:49 Seg Neutrophils # 8.4 K/mm3 (1.8-7.7) H 01/04/22 05:01 Seg Neutrophils # Man 17.1 K/mm3 (1.8-7.7) H 12/30/21 04:49 Band Neutrophils # 0.4 K/mm3 12/30/21 04:49 Lymphocytes # (Manual) 1.0 K/mm3 (1.2-5.4) L 12/30/21 04:49 Abs React Lymphs (Man) 0.0 K/mm3 12/30/21 04:49 Monocytes # (Manual) 1.6 K/mm3 (0.0-0.8) H 12/30/21 04:49 Eosinophils # (Manual) 0.0 K/mm3 (0.0-0.4) 12/30/21 04:49 Basophils # (Manual) 0.0 K/mm3 (0.0-0.1) 12/30/21 04:49 Metamyelocytes # 0.4 K/mm3 12/30/21 04:49 Myelocytes # 0.0 K/mm3 12/30/21 04:49 Promyelocytes # 0.0 K/mm3 12/30/21 04:49 Blast Cells # 0.0 K/mm3 12/30/21 04:49 WBC Morphology Not Reportable 12/30/21 04:49 Hypersegmented Neuts Not Reportable 12/30/21 04:49 Hyposegmented Neuts Rare 12/30/21 04:49 Hypogranular Neuts Not Reportable 12/30/21 04:49 Smudge Cells Not Reportable 12/30/21 04:49 Toxic Granulation Not Reportable 12/30/21 04:49 Toxic Vacuolation Not Reportable 12/30/21 04:49 Dohle Bodies Not Reportable 12/30/21 04:49 Pelger-Huet Anomaly Not Reportable 12/30/21 04:49 [place] Rods Not Reportable 12/30/21 04:49 Platelet Estimate Consistent w auto 12/30/21 04:49 Clumped Platelets Not Reportable 12/30/21 04:49 Plt Clumps, EDTA Not Reportable 12/30/21 04:49 Large Platelets Rare 12/30/21 04:49 Giant Platelets Not Reportable 12/30/21 04:49 Platelet Satelliting Not Reportable 12/30/21 04:49 Plt Morphology Comment Not Reportable 12/30/21 04:49 RBC Morphology Not Reportable 12/30/21 04:49 Dimorphic RBCs Not Reportable 12/30/21 04:49 Polychromasia Not Reportable 12/30/21 04:49 Hypochromasia Not Reportable 12/30/21 04:49 Poikilocytosis Not Reportable 12/30/21 04:49 Anisocytosis Rare 12/30/21 04:49 Microcytosis Not Reportable 12/30/21 04:49 Macrocytosis Rare 12/30/21 04:49 Spherocytes Not Reportable 12/30/21 04:49 Pappenheimer Bodies Not Reportable 12/30/21 04:49 Sickle Cells Not Reportable 12/30/21 04:49 Target Cells Not Reportable 12/30/21 04:49 Tear Drop Cells Not Reportable 12/30/21 04:49 Ovalocytes Not Reportable 12/30/21 04:49 Helmet Cells Not Reportable 12/30/21 04:49 [place] Bodies Not Reportable 12/30/21 04:49 [place] Rings Not Reportable 12/30/21 04:49 [place] Cells Not Reportable 12/30/21 04:49 Bite Cells Not Reportable 12/30/21 04:49 Crenated Cell Not Reportable 12/30/21 04:49 Elliptocytes Not Reportable 12/30/21 04:49 Acanthocytes (Spur) Not Reportable 12/30/21 04:49 Rouleaux Not Reportable 12/30/21 04:49 Hemoglobin C Crystals Not Reportable 12/30/21 04:49 Schistocytes Not Reportable 12/30/21 04:49 Malaria parasites Not Reportable 12/30/21 04:49 [place] Bodies Not Reportable 12/30/21 04:49 Hem Pathologist Commnt No 12/30/21 04:49 PT 13.4 Sec. (12.2-14.9) 12/21/21 13:30 INR 0.92 (0.87-1.13) 12/21/21 13:30 APTT 25.8 Sec. (24.2-36.6) 12/21/21 13:30 Sodium 137 mmol/L (137-145) 01/06/22 08:55 Potassium 3.7 mmol/L (3.6-5.0) 01/06/22 08:55 Chloride 101.1 mmol/L (98-107) 01/06/22 08:55 Carbon Dioxide 27 mmol/L (22-30) 01/06/22 08:55 Anion Gap 13 mmol/L 01/06/22 08:55 BUN 5 mg/dL (9-20) L 01/06/22 08:55 Creatinine 0.7 mg/dL (0.8-1.3) L 01/06/22 08:55 Estimated GFR > 60 ml/min 01/06/22 08:55 BUN/Creatinine Ratio 7 % 01/06/22 08:55 Glucose 85 mg/dL (75-100) 01/06/22 08:55 Lactic Acid 1.40 mmol/L (0.7-2.0) 12/21/21 13:30 Calcium 8.8 mg/dL (8.4-10.2) 01/06/22 08:55 Phosphorus 2.80 mg/dL (2.5-4.5) 12/24/21 05:17 Magnesium 2.20 mg/dL (1.7-2.3) 12/24/21 05:17 Total Bilirubin 0.40 mg/dL (0.1-1.2) 01/06/22 08:55 Direct Bilirubin < 0.2 mg/dL (0-0.2) 01/03/22 04:00 Indirect Bilirubin 0.3 mg/dL 01/03/22 04:00 AST 46 units/L (5-40) H 01/06/22 08:55 ALT 130 units/L (7-56) H 01/06/22 08:55 Alkaline Phosphatase 76 units/L (35-129) 01/06/22 08:55 Ammonia 37.0 umol/L (25-60) 12/23/21 04:49 Total Creatine Kinase 1001 units/L (55-170) H 01/06/22 08:55 Total Protein 6.0 g/dL (6.3-8.2) L 01/06/22 08:55 Albumin 2.9 g/dL (3.9-5) L 01/06/22 08:55 Albumin/Globulin Ratio 0.9 % 01/06/22 08:55 Amylase 25 units/L (27-131) L 12/23/21 04:49 Lipase 10 units/L (13-60) L 12/23/21 04:49 Coronavirus (PCR) Negative (Negative) 12/22/21 11:40 Hepatitis A IgM Ab Nonreactive (NonReactive) 12/21/21 13:30 Hep Bs Antigen Non-reactive (Negative) 12/21/21 13:30 Hep B Core IgM Ab Non-reactive (NonReactive) 12/21/21 13:30 Hepatitis C Antibody Non-reactive (NonReactive) 12/21/21 13:30 HIV 1&2 Antibody Rapid Non react (Non React) 12/22/21 16:42 HIV P24 Antigen Non react (Non React) 12/22/21 16:42 Kaur/IV: Voiding Method Urinal Active Medications - Current Medications Current Medications: Generic Name Dose Route Start Last Admin Trade Name Freq PRN Reason Stop Dose Admin Acetaminophen 650 mg 01/04/22 22:14 01/05/22 00:08 Acetaminophen 325 Mg Tab PO 650 mg Q6H PRN Administration Pain, Mild (1-3) Albuterol 2.5 mg 12/21/21 06:15 Albuterol 2.5 Mg/3 Ml Nebu IH Q3HRT PRN Shortness Of Breath Diphenhydramine HCl 25 mg 12/21/21 06:24 01/05/22 17:12 Diphenhydramine 50 Mg/Ml Vial IV 25 mg Q6H PRN Administration Skin Irritation Docusate Sodium 100 mg 12/23/21 22:00 01/06/22 22:06 Docusate Sodium 100 Mg Cap PO 100 mg BID VLADIMIR Administration Famotidine 20 mg 12/26/21 10:00 01/06/22 22:06 Famotidine 20 Mg Tab PO 20 mg BID VLADIMIR Administration Gabapentin 300 mg 01/05/22 08:00 01/06/22 22:06 Gabapentin 300 Mg Cap PO 300 mg TID@0800,1600,2200 VLAIDMIR Administration Heparin Sodium (Porcine) 5,000 unit 12/21/21 10:00 01/06/22 22:06 Heparin 5,000 Unit/1 Ml Vial SUB-Q 5,000 unit Q12HR VLADIMIR Administration Hydralazine HCl 10 mg 12/22/21 18:31 12/22/21 18:50 Hydralazine 20 Mg/1 Ml Inj IV 10 mg Q3HR PRN Administration Hypertension Hydromorphone HCl 0.5 mg 12/21/21 06:15 01/04/22 14:05 Hydromorphone 1 Mg/1 Ml Inj IV 0.5 mg Q3H PRN Administration Pain , Severe (7-10) Sodium Chloride 1,000 mls @ 75 mls/hr 01/03/22 01:00 01/07/22 03:45 Nacl 0.9% 1000 Ml IV 75 mls/hr DIRECT VLADIMIR Administration Morphine Sulfate 2 mg 12/21/21 06:15 01/03/22 17:50 Morphine 2 Mg/1 Ml Inj IV 2 mg Q4H PRN Administration Pain, Moderate (4-6) Ondansetron HCl 4 mg 12/21/21 06:15 01/03/22 10:38 Ondansetron 4 Mg/2 Ml Inj IV 4 mg Q8H PRN Administration Nausea And Vomiting Sodium Chloride 10 ml 12/21/21 10:00 01/06/22 22:07 Sodium Chloride 0.9% 10 Ml Flush Syringe IV 10 ml BID VLADIMIR Administration Sodium Chloride 10 ml 12/21/21 06:15 12/30/21 01:09 Sodium Chloride 0.9% 10 Ml Flush Syringe IV 10 ml PRN PRN Administration LINE FLUSH Valsartan 160 mg 12/22/21 22:00 01/06/22 09:26 Valsartan 160mg Tab PO 160 mg DAILY VLADIMIR Administration Nutrition/Malnutrition Assess - Dietary Evaluation Nutrition/Malnutrition Findings: Nutrition Notes Start: 12/28/21 16:45 Freq: Status: Active Protocol: Document 01/06/22 14:21 OPAL (Rec: 01/06/22 14:46 OPAL [id number]) Nutrition Notes Initial or Follow up Reassessment Current Diagnosis Hypertension Other Pertinent Diagnosis Rabdomyolysis, Liver Failure, s/p L-LE 4 Compartment Fasciotomy w/Debridem. Current Diet Regular Diet + Dietary Supplements. (since B 12/29). Labs/Tests 01/06: BUN 5, Crea 0.7. Pertinent Medications 01/06: Nutritionally unremarkable. Height 5 ft 6 in Weight 86.183 kg [place] Body Weight (kg) 64.54 BMI 30.7 Weight change and time frame No body weight change reporterd in 9 days. Weight Status Obese Subjective/Other Information RD consult for routine F/U on dietary advancement. Pt's PO intake of meals has been Good (100%), according to ADL notes. Pt is on Room Air, O2 saturation @ 96%, according to Physical Assessment History notes. Pt presents L-LE Pitting Edema 2+, according to Physical Assessment History notes. Pt presents L-LE Vascular Wound with WoundVAC since , according to Physical Assessment History notes. Event on 01/03, Pt suffered a syncope during PT session, according to Progress notes. Pt is clearedd for discharge, it is pending due to several social issues, according to Progress notes. Percent of energy/protein needs met: Prescribed Regular Diet provides for energy/protein needs (2,289 Kcal/89 g) during LOS Burn Absent Trauma Absent GI Symptoms None Food Allergy No Skin Integrity/Comment L-LE Vascular Wound Current % PO Good (75-100%) Minimum of two criteria No #1 Nutrition Diagnosis Increased nutrient needs ( specify in comment below) Comments: Protein to support wound healing processes. Diagnosis Progress(for reassessment Continues documentation) Is patient on ventilator? No Is Patient Ambulatory and/or Out of Bed No REE-([place]-St. Jeor-confined to bed) 2083.920 Kcal/Kg value to use for calculation 19 Approximate Energy Requirements Using 1637 kcal/Kg Calculation Used for Recommendations Kcal/kg Additional Notes Protein: 1.25-1.5 g/Kg AdjBW; 85-114 g/day. Fluids: 1 ml/Kcal, or as per MD. Nutrition Intervention Change Diet Order: Continue Regular Diet. Add Supplement/Snack (indicate name/kcal Continue 28.8 g pkt [place]; BID /protein ) . Provides kCal: 190 Provides Protein (gm) 5 Goal #1 Support, through dietary supplementation, wound healing processes during LOS. Goal #2 Adjust the dietary intervention to better serve Pt's needs and clinical conditions during LOS. Goal #3 Maintain body weight within +/ -3% of admission body weight during LOS. Revisit per MD consult or patient Sign Off request: Additional Comments Continue monitoring food tolerance, %PO intake of meals , and BM.
[2022-01-07] MEDS: GABAPENTIN 300 MG CAP PO SCH ×3 (11:19→21:21)
[2022-01-07] MEDS: HEPARIN 5,000 UNIT/1 ML VIAL SUB-Q SCH ×2 (11:19→21:22)
[2022-01-07] MEDS: VALSARTAN 160MG TAB PO SCH (11:19)
[2022-01-07] MEDS: oxyCODONE /ACETAMINOPHEN 5-325MG TAB PO PRN (11:20)
[2022-01-07] MEDS: FAMOTIDINE 20 MG TAB PO SCH ×2 (11:20→21:21)
[2022-01-07] MEDS: DOCUSATE SODIUM 100 MG CAP PO SCH ×2 (11:24→21:22)
[2022-01-07] MEDS: HYDROmorphone 1 MG/1 ML INJ IV PRN (20:01)
[2022-01-08] MEDS: oxyCODONE /ACETAMINOPHEN 5-325MG TAB PO PRN ×3 (05:40→21:58)
[2022-01-08] MEDS: SODIUM CHLORIDE 0.9% 1000 ML 1,000 ML IV SCH ×2 (05:42→21:48)
[2022-01-08 06:08] LABS: Alanine Aminotransferase 108 units/L (7-56); Albumin 3.1 g/dL (3.9-5); Blood Urea Nitrogen 5 mg/dL (9-20); Calcium 8.9 mg/dL (8.4-10.2); Hemolysis Index 0
[2022-01-08 06:09] LABS: BUN/Creatinine Ratio 7
--- NOTE | 2022-01-08 09:10 | Progress Note ---
Assessment and Plan Assessment and plan: This is a 36 year old transgendered female undergoing gender transformation with silicone injection to buttocks ([place] 2016) and breast implants, heavy drinker on the weekends (bottle of vodka) who presented to [facility] on 12/21 because of adverse drug reaction after reportedly self administration of rocephin and PCN for sore throat. Patient reportedly collapsed while checking in to the emergency department, has complains of severe 10 out of 10 pain in left thigh and has noticeable mottling of skin in thigh and left lower abdomen. Patient underwent a CT of the left leg which showed possible cellulitis with no drainable fluid collection and was started on empiric antibiotics. Patient admitted to the hospital service with diagnosis of acute liver failure, rhabdomyolysis, s/p 4 compartment fasciotomy to left lower extremity Acute liver failure -GI consulted, appreciate recommendations -Per GI: Suspect due to rhabdomyolysis given elevated creatinine kinase levels -If ALT continues to rise recommend MRCP -Abdominal ultrasound showed mild diffuse biliary dilation, obstruction to lesion of the distal common bile duct cannot be excluded consider MRCP, no evidence of gallstones within the gallbladder -PPI -Regular diet -BR: colace -Trend LFTs Compartment syndrome to LLE -Vascular surgery consulted, appreciate recommendations -s/p self admin of IM abx to midthigh -c/o pain, decreased sensation, pulses were dopplarable, paralysis, mottled skin -s/p 4 compartment tracheotomy on 12/21 with vascular surgery -Bilateral lower extremity Doppler ultrasound showed no DVT -Left lower extremity CT with contrast showed appearance of posterior soft tissue complex cellulitis with small subcutaneous lymph nodes, no drainable fluid collections present, contusion could have similar appearance -Bilateral lower extremity arterial duplex showed no significant lower extremity peripheral artery disease -Normal ABIs Peripheral neuropathy -Avoid delirium -Reorientation as needed -Maintain sleep-wake cycle -As needed analgesia -Neurology consulted, appreciate recommendations -Gabapentin HTN -Blood pressure monitoring per protocol -Valsartan -PRN hydralazine Rhabdomyolysis acute kidney injury with vasomotor nephropathy now resolved -Nephrology consulted, appreciate recommendations -Strict intake and output -Renally dose medications -Avoid nephrotoxic medications -MIVF -Sodium bicarb -Trend BMP, CK Hospital course to date: 12/21: Venous ultrasound shows no DVT, Vascular surgery consulted who performed a fasciotomy and plan to transfer patient to [facility] post intervention. Neurology consulted 12/22: Transfer to ICU, GI and neurology consulted. 12/23: Patient will be transferred back to the floor from ICU. Her liver enzymes and creatinine are trending down. Will be started on gabapentin per neurology recommendations and antibiotics discontinued. 12/24: Continue supportive care. CPK slowly improving. Vascular plans for closure of fasciotomy early next week. PT OT evaluation and treatment closure done. Continue wound management. No evidence of withdrawal noted at this time. Continue to monitor LFTs which are also slightly improving. Plan discussed in detail with the patient who verbalized understanding 12/25: Patient seen and examined clinically stable continues to show some improvement. Closure of fasciotomy planned for tomorrow. Renal function is improving. CK ordered and pending 12/26: Patient seen and examined, wbc mildly elevated likely secondary to steroids, will change to po for two additional days and stop, benefit probably already achieved, continue wound dressing, sensory function improved, awaiting wound vac and closure. Patient advised on clinically progress. 12/27: Patient seen and examined awaiting her vascular surgery for closure of fasciotomy. CK is decreasing less than 9000 today. We will continue aggressive IV fluids until we have the resolution below 5000. LFTs on the downward trend also. Leukocytosis appears to have peaked steroids was changed to oral for 2 additional days today is 1 of 2.. Plan of care discussed in detail with the patient who verbalized understanding. 12/28: Left lower extremity compartment syndrome status post fasciotomies. Cau se is still unclear and may represent some allergic reaction. Motor function is unchanged from original exam. Sensory function has improved with full sensation of the foot.vascular surgery to place wound vacs on the leg today. CK improved to the 8000 range today 12/29: Patient underwent excisional debridement of muscle and soft tissue from left leg wound yesterday. Patient also had wound VAC placement left leg fasciotomy incisions. The patient had moderate amount of superficial necrotic muscle in the anterior lateral compartments with minimal amount of superficial necrotic muscle in the posterior compartment. Follow-up culture results. CK levels have improved to 6900 range. AST/ALT continue to trend downward. 12/30: I discussed the case with Dr. Lopez who recommends home wound VAC as well as physical therapy. I also discussed these needs with case management who was attempting to arrange for discharge planning. CK continues to improve with levels in the 4000 range. 12/31: Still awaiting for home wound VAC arrangements to be made. Leukocytosis is much improved down to 13,900 today. LFTs continue to trend down to normal range. CK levels still in the 4000 range. Nephrology has signed off. Anticipate discharge later today or in a.m. 01/01: Still awaiting for home wound VAC arrangements to be made. Laboratories continue to include including LFTs, CK and leukocytosis. 01/02: Still awaiting for home wound VAC arrangements to be made. 01/03: Patient had an episode of syncope while working with PT today. Nurse reports patient lost consciousness for a few seconds and was helped back to the bed. Patient's blood pressure was noted to be hypotensive/orthostatic. We will bolus 500 normal saline IV fluid and monitor orthostatics. Case management reports that wound VAC should be delivered today. LFTs continue to trend down to normal range. CK levels still in the 2000 range. Nephrology has signed off. Anticipate discharge in a.m. given the syncope and once wound VAC arranged. Patient with low-grade temp. We will monitor. 01/04; patient is anxious to go home, wound VAC is delivered to the bedside, continue wound care Multiple social issues, DC planning per case management, left lower extremity Doppler negative for DVT 01/05; discharge planning, multiple social issues 01/06; continue current management, wound VAC in place, DC planning issues 01/07; discharge planning per case management, setting up wound VAC, setting up outpatient wound care Setting up follow-up visits with physicians, patient has multiple social issues and no payer source Continue current management discharge when medically stable 01/08; patient's LFTs are trending down, continue current management Wound VAC care, wound VAC change per instructions, wound care as indicated Discharge planning per case management History Interval history: I have seen and examined the patient at the bedside Patient's chart and medications reviewed Patient feels comfortable anxious to go home Awaiting wound VAC placement and education and wound care and change of dressing prior to discharge Vital signs noted Hospitalist Physical - Constitutional Vitals: Temp Pulse Resp BP Pulse Ox 99.0 F 96 H 18 113/65 100 01/08/22 04:52 01/08/22 04:52 01/08/22 04:52 01/08/22 04:52 01/08/22 04:52 General appearance: Present: no acute distress, well-nourished, obese - EENT Eyes: Present: PERRL, EOM intact - Neck Neck: Present: supple, normal ROM - Respiratory Respiratory effort: normal Respiratory: bilateral: diminished, negative: rales, rhonchi, wheezing - Cardiovascular Rhythm: regular Heart Sounds: Present: S1 & S2 - Extremities Extremities: no ischemia, No edema - Abdominal General gastrointestinal: soft, non-tender, non-distended, normal bowel sounds - Integumentary Integumentary: Present: clear, warm - Psychiatric Psychiatric: appropriate mood/affect, cooperative - Neurologic Neurologic: CNII-XII intact, moves all extremities Results - Labs CBC & Chem 7: 01/04/22 05:01 01/08/22 05:22 Labs: Laboratory Last Values WBC 10.6 K/mm3 (4.5-11.0) 01/04/22 05:01 RBC 3.21 M/mm3 (3.65-5.03) L 01/04/22 05:01 Hgb 10.7 gm/dl (11.8-15.2) L 01/04/22 05:01 Hct 32.0 % (35.5-45.6) L 01/04/22 05:01 MCV 99 fl (84-94) H 01/04/22 05:01 MCH 33 pg (28-32) H 01/04/22 05:01 MCHC 33 % (32-34) 01/04/22 05:01 RDW 13.3 % (13.2-15.2) 01/04/22 05:01 Plt Count 427 K/mm3 (140-440) 01/04/22 05:01 Lymph % (Auto) 12.9 % (13.4-35.0) L 01/04/22 05:01 [place] % (Auto) 6.9 % (0.0-7.3) 01/04/22 05:01 Eos % (Auto) 0.4 % (0.0-4.3) 01/04/22 05:01 Baso % (Auto) 0.3 % (0.0-1.8) 01/04/22 05:01 Lymph # (Auto) 1.4 K/mm3 (1.2-5.4) 01/04/22 05:01 [place] # (Auto) 0.7 K/mm3 (0.0-0.8) 01/04/22 05:01 Eos # (Auto) 0.0 K/mm3 (0.0-0.4) 01/04/22 05:01 Baso # (Auto) 0.0 K/mm3 (0.0-0.1) 01/04/22 05:01 Add Manual Diff Complete 12/30/21 04:49 Total Counted 100 12/30/21 04:49 Seg Neutrophils % 79.5 % (40.0-70.0) H 01/04/22 05:01 Seg Neuts % (Manual) 83.0 % (40.0-70.0) H 12/30/21 04:49 Band Neutrophils % 2.0 % 12/30/21 04:49 Lymphocytes % (Manual) 5.0 % (13.4-35.0) L 12/30/21 04:49 Reactive Lymphs % (Man) 0 % 12/30/21 04:49 Monocytes % (Manual) 8.0 % (0.0-7.3) H 12/30/21 04:49 Eosinophils % (Manual) 0 % (0.0-4.3) 12/30/21 04:49 Basophils % (Manual) 0 % (0.0-1.8) 12/30/21 04:49 Metamyelocytes % 2.0 % 12/30/21 04:49 Myelocytes % 0 % 12/30/21 04:49 Promyelocytes % 0 % 12/30/21 04:49 Blast Cells % 0 % 12/30/21 04:49 Nucleated RBC % Not Reportable 12/30/21 04:49 Seg Neutrophils # 8.4 K/mm3 (1.8-7.7) H 01/04/22 05:01 Seg Neutrophils # Man 17.1 K/mm3 (1.8-7.7) H 12/30/21 04:49 Band Neutrophils # 0.4 K/mm3 12/30/21 04:49 Lymphocytes # (Manual) 1.0 K/mm3 (1.2-5.4) L 12/30/21 04:49 Abs React Lymphs (Man) 0.0 K/mm3 12/30/21 04:49 Monocytes # (Manual) 1.6 K/mm3 (0.0-0.8) H 12/30/21 04:49 Eosinophils # (Manual) 0.0 K/mm3 (0.0-0.4) 12/30/21 04:49 Basophils # (Manual) 0.0 K/mm3 (0.0-0.1) 12/30/21 04:49 Metamyelocytes # 0.4 K/mm3 12/30/21 04:49 Myelocytes # 0.0 K/mm3 12/30/21 04:49 Promyelocytes # 0.0 K/mm3 12/30/21 04:49 Blast Cells # 0.0 K/mm3 12/30/21 04:49 WBC Morphology Not Reportable 12/30/21 04:49 Hypersegmented Neuts Not Reportable 12/30/21 04:49 Hyposegmented Neuts Rare 12/30/21 04:49 Hypogranular Neuts Not Reportable 12/30/21 04:49 Smudge Cells Not Reportable 12/30/21 04:49 Toxic Granulation Not Reportable 12/30/21 04:49 Toxic Vacuolation Not Reportable 12/30/21 04:49 Dohle Bodies Not Reportable 12/30/21 04:49 Pelger-Huet Anomaly Not Reportable 12/30/21 04:49 [place] Rods Not Reportable 12/30/21 04:49 Platelet Estimate Consistent w auto 12/30/21 04:49 Clumped Platelets Not Reportable 12/30/21 04:49 Plt Clumps, EDTA Not Reportable 12/30/21 04:49 Large Platelets Rare 12/30/21 04:49 Giant Platelets Not Reportable 12/30/21 04:49 Platelet Satelliting Not Reportable 12/30/21 04:49 Plt Morphology Comment Not Reportable 12/30/21 04:49 RBC Morphology Not Reportable 12/30/21 04:49 Dimorphic RBCs Not Reportable 12/30/21 04:49 Polychromasia Not Reportable 12/30/21 04:49 Hypochromasia Not Reportable 12/30/21 04:49 Poikilocytosis Not Reportable 12/30/21 04:49 Anisocytosis Rare 12/30/21 04:49 Microcytosis Not Reportable 12/30/21 04:49 Macrocytosis Rare 12/30/21 04:49 Spherocytes Not Reportable 12/30/21 04:49 Pappenheimer Bodies Not Reportable 12/30/21 04:49 Sickle Cells Not Reportable 12/30/21 04:49 Target Cells Not Reportable 12/30/21 04:49 Tear Drop Cells Not Reportable 12/30/21 04:49 Ovalocytes Not Reportable 12/30/21 04:49 Helmet Cells Not Reportable 12/30/21 04:49 Parsons-Coin Bodies Not Reportable 12/30/21 04:49 [place] Rings Not Reportable 12/30/21 04:49 Sebastien Cells Not Reportable 12/30/21 04:49 Bite Cells Not Reportable 12/30/21 04:49 Crenated Cell Not Reportable 12/30/21 04:49 Elliptocytes Not Reportable 12/30/21 04:49 Acanthocytes (Spur) Not Reportable 12/30/21 04:49 Rouleaux Not Reportable 12/30/21 04:49 Hemoglobin C Crystals Not Reportable 12/30/21 04:49 Schistocytes Not Reportable 12/30/21 04:49 Malaria parasites Not Reportable 12/30/21 04:49 [place] Bodies Not Reportable 12/30/21 04:49 Hem Pathologist Commnt No 12/30/21 04:49 PT 13.4 Sec. (12.2-14.9) 12/21/21 13:30 INR 0.92 (0.87-1.13) 12/21/21 13:30 APTT 25.8 Sec. (24.2-36.6) 12/21/21 13:30 Sodium 136 mmol/L (137-145) L 01/08/22 05:22 Potassium 3.8 mmol/L (3.6-5.0) 01/08/22 05:22 Chloride 101.0 mmol/L (98-107) 01/08/22 05:22 Carbon Dioxide 29 mmol/L (22-30) 01/08/22 05:22 Anion Gap 10 mmol/L 01/08/22 05:22 BUN 5 mg/dL (9-20) L 01/08/22 05:22 Creatinine 0.7 mg/dL (0.8-1.3) L 01/08/22 05:22 Estimated GFR > 60 ml/min 01/08/22 05:22 BUN/Creatinine Ratio 7 % 01/08/22 05:22 Glucose 103 mg/dL (75-100) H 01/08/22 05:22 Lactic Acid 1.40 mmol/L (0.7-2.0) 12/21/21 13:30 Calcium 8.9 mg/dL (8.4-10.2) 01/08/22 05:22 Phosphorus 2.80 mg/dL (2.5-4.5) 12/24/21 05:17 Magnesium 2.20 mg/dL (1.7-2.3) 12/24/21 05:17 Total Bilirubin 0.50 mg/dL (0.1-1.2) 01/08/22 05:22 Direct Bilirubin < 0.2 mg/dL (0-0.2) 01/03/22 04:00 Indirect Bilirubin 0.3 mg/dL 01/03/22 04:00 AST 42 units/L (5-40) H 01/08/22 05:22 ALT 108 units/L (7-56) H 01/08/22 05:22 Alkaline Phosphatase 77 units/L (35-129) 01/08/22 05:22 Ammonia 37.0 umol/L (25-60) 12/23/21 04:49 Total Creatine Kinase 1001 units/L (55-170) H 01/06/22 08:55 Total Protein 6.2 g/dL (6.3-8.2) L 01/08/22 05:22 Albumin 3.1 g/dL (3.9-5) L 01/08/22 05:22 Albumin/Globulin Ratio 1.0 % 01/08/22 05:22 Amylase 25 units/L (27-131) L 12/23/21 04:49 Lipase 10 units/L (13-60) L 12/23/21 04:49 Coronavirus (PCR) Negative (Negative) 12/22/21 11:40 Hepatitis A IgM Ab Nonreactive (NonReactive) 12/21/21 13:30 Hep Bs Antigen Non-reactive (Negative) 12/21/21 13:30 Hep B Core IgM Ab Non-reactive (NonReactive) 12/21/21 13:30 Hepatitis C Antibody Non-reactive (NonReactive) 12/21/21 13:30 HIV 1&2 Antibody Rapid Non react (Non React) 12/22/21 16:42 HIV P24 Antigen Non react (Non React) 12/22/21 16:42 Microbiology: Microbiology 12/28/21 Unknown Leg - Left Surgical Biopsy Culture - Preliminary Bacillus Species Kaur/IV: Voiding Method Urinal Active Medications - Current Medications Current Medications: Generic Name Dose Route Start Last Admin Trade Name Freq PRN Reason Stop Dose Admin Acetaminophen 650 mg 01/04/22 22:14 01/05/22 00:08 Acetaminophen 325 Mg Tab PO 650 mg Q6H PRN Administration Pain, Mild (1-3) Albuterol 2.5 mg 12/21/21 06:15 Albuterol 2.5 Mg/3 Ml Nebu IH Q3HRT PRN Shortness Of Breath Diphenhydramine HCl 25 mg 12/21/21 06:24 01/05/22 17:12 Diphenhydramine 50 Mg/Ml Vial IV 25 mg Q6H PRN Administration Skin Irritation Docusate Sodium 100 mg 12/23/21 22:00 01/07/22 21:22 Docusate Sodium 100 Mg Cap PO Not Given BID VLADIMIR Famotidine 20 mg 12/26/21 10:00 01/07/22 21:21 Famotidine 20 Mg Tab PO 20 mg BID VLADIMIR Administration Gabapentin 300 mg 01/05/22 08:00 01/07/22 21:21 Gabapentin 300 Mg Cap PO 300 mg TID@0800,1600,2200 VLADIMIR Administration Heparin Sodium (Porcine) 5,000 unit 12/21/21 10:00 01/07/22 21:22 Heparin 5,000 Unit/1 Ml Vial SUB-Q 5,000 unit Q12HR VLADIMIR Administration Hydralazine HCl 10 mg 12/22/21 18:31 12/22/21 18:50 Hydralazine 20 Mg/1 Ml Inj IV 10 mg Q3HR PRN Administration Hypertension Hydromorphone HCl 0.5 mg 12/21/21 06:15 01/07/22 20:01 Hydromorphone 1 Mg/1 Ml Inj IV 0.5 mg Q3H PRN Administration Pain , Severe (7-10) Sodium Chloride 1,000 mls @ 75 mls/hr 01/03/22 01:00 01/08/22 05:42 Nacl 0.9% 1000 Ml IV 75 mls/hr DIRECT VLADIMIR Administration Ondansetron HCl 4 mg 12/21/21 06:15 01/03/22 10:38 Ondansetron 4 Mg/2 Ml Inj IV 4 mg Q8H PRN Administration Nausea And Vomiting Oxycodone/Acetaminophen 1 tab 01/07/22 10:57 01/08/22 05:40 Oxycodone /Acetaminophen 5-325mg Tab PO 1 tab Q6H PRN Administration Pain, Moderate (4-6) Sodium Chloride 10 ml 12/21/21 10:00 01/07/22 21:21 Sodium Chloride 0.9% 10 Ml Flush Syringe IV 10 ml BID VLADIMIR Administration Sodium Chloride 10 ml 12/21/21 06:15 01/07/22 20:02 Sodium Chloride 0.9% 10 Ml Flush Syringe IV 10 ml PRN PRN Administration LINE FLUSH Valsartan 160 mg 12/22/21 22:00 01/07/22 11:19 Valsartan 160mg Tab PO 160 mg DAILY VLADIMIR Administration Nutrition/Malnutrition Assess - Dietary Evaluation Nutrition/Malnutrition Findings: Nutrition Notes Start: 12/28/21 16:45 Freq: Status: Active Protocol: Document 01/06/22 14:21 OPAL (Rec: 01/06/22 14:46 OPAL [id number]) Nutrition Notes Initial or Follow up Reassessment Current Diagnosis Hypertension Other Pertinent Diagnosis Rabdomyolysis, Liver Failure, s/p L-LE 4 Compartment Fasciotomy w/Debridem. Current Diet Regular Diet + Dietary Supplements. (since B 12/29). Labs/Tests 01/06: BUN 5, Crea 0.7. Pertinent Medications 01/06: Nutritionally unremarkable. Height 5 ft 6 in Weight 86.183 kg [place] Body Weight (kg) 64.54 BMI 30.7 Weight change and time frame No body weight change reporterd in 9 days. Weight Status Obese Subjective/Other Information RD consult for routine F/U on dietary advancement. Pt's PO intake of meals has been Good (100%), according to ADL notes. Pt is on Room Air, O2 saturation @ 96%, according to Physical Assessment History notes. Pt presents L-LE Pitting Edema 2+, according to Physical Assessment History notes. Pt presents L-LE Vascular Wound with WoundVAC since , according to Physical Assessment History notes. Event on 01/03, Pt suffered a syncope during PT session, according to Progress notes. Pt is clearedd for discharge, it is pending due to several social issues, according to Progress notes. Percent of energy/protein needs met: Prescribed Regular Diet provides for energy/protein needs (2,289 Kcal/89 g) during LOS Burn Absent Trauma Absent GI Symptoms None Food Allergy No Skin Integrity/Comment L-LE Vascular Wound Current % PO Good (75-100%) Minimum of two criteria No #1 Nutrition Diagnosis Increased nutrient needs ( specify in comment below) Comments: Protein to support wound healing processes. Diagnosis Progress(for reassessment Continues documentation) Is patient on ventilator? No Is Patient Ambulatory and/or Out of Bed No REE-([facility]-confined to bed) 2083.920 Kcal/Kg value to use for calculation 19 Approximate Energy Requirements Using 1637 kcal/Kg Calculation Used for Recommendations Kcal/kg Additional Notes Protein: 1.25-1.5 g/Kg AdjBW; 85-114 g/day. Fluids: 1 ml/Kcal, or as per MD. Nutrition Intervention Change Diet Order: Continue Regular Diet. Add Supplement/Snack (indicate name/kcal Continue 28.8 g pkt Calvin; BID /protein ) . Provides kCal: 190 Provides Protein (gm) 5 Goal #1 Support, through dietary supplementation, wound healing processes during LOS. Goal #2 Adjust the dietary intervention to better serve Pt's needs and clinical conditions during LOS. Goal #3 Maintain body weight within +/ -3% of admission body weight during LOS. Revisit per MD consult or patient Sign Off request: Additional Comments Continue monitoring food tolerance, %PO intake of meals , and BM.
[2022-01-08] MEDS: FAMOTIDINE 20 MG TAB PO SCH ×2 (09:40→21:44)
[2022-01-08] MEDS: HEPARIN 5,000 UNIT/1 ML VIAL SUB-Q SCH ×2 (09:40→21:45)
[2022-01-08] MEDS: GABAPENTIN 300 MG CAP PO SCH ×3 (09:40→21:44)
[2022-01-08] MEDS: VALSARTAN 160MG TAB PO SCH (09:40)
[2022-01-08] MEDS: DOCUSATE SODIUM 100 MG CAP PO SCH ×2 (09:40→21:45)
[2022-01-09] MEDS: oxyCODONE /ACETAMINOPHEN 5-325MG TAB PO PRN ×3 (08:06→23:05)
[2022-01-09] MEDS: GABAPENTIN 300 MG CAP PO SCH ×3 (08:06→22:11)
--- NOTE | 2022-01-09 09:15 | Progress Note ---
Assessment and Plan Assessment and plan: This is a 36 year old transgendered female undergoing gender transformation with silicone injection to buttocks ([place] 2016) and breast implants, heavy drinker on the weekends (bottle of vodka) who presented to [facility] on 12/21 because of adverse drug reaction after reportedly self administration of rocephin and PCN for sore throat. Patient reportedly collapsed while checking in to the emergency department, has complains of severe 10 out of 10 pain in left thigh and has noticeable mottling of skin in thigh and left lower abdomen. Patient underwent a CT of the left leg which showed possible cellulitis with no drainable fluid collection and was started on empiric antibiotics. Patient admitted to the hospital service with diagnosis of acute liver failure, rhabdomyolysis, s/p 4 compartment fasciotomy to left lower extremity Acute liver failure -GI consulted, appreciate recommendations -Per GI: Suspect due to rhabdomyolysis given elevated creatinine kinase levels -If ALT continues to rise recommend MRCP -Abdominal ultrasound showed mild diffuse biliary dilation, obstruction to lesion of the distal common bile duct cannot be excluded consider MRCP, no evidence of gallstones within the gallbladder -PPI -Regular diet -BR: colace -Trend LFTs Compartment syndrome to LLE -Vascular surgery consulted, appreciate recommendations -s/p self admin of IM abx to midthigh -c/o pain, decreased sensation, pulses were dopplarable, paralysis, mottled skin -s/p 4 compartment tracheotomy on 12/21 with vascular surgery -Bilateral lower extremity Doppler ultrasound showed no DVT -Left lower extremity CT with contrast showed appearance of posterior soft tissue complex cellulitis with small subcutaneous lymph nodes, no drainable fluid collections present, contusion could have similar appearance -Bilateral lower extremity arterial duplex showed no significant lower extremity peripheral artery disease -Normal ABIs Vascular follow-up with Dr. Lenard Kimble on 01/27/2022 at 10 AM Peripheral neuropathy -Avoid delirium -Reorientation as needed -Maintain sleep-wake cycle -As needed analgesia -Neurology consulted, appreciate recommendations -Gabapentin HTN -Blood pressure monitoring per protocol -Valsartan -PRN hydralazine Rhabdomyolysis acute kidney injury with vasomotor nephropathy now resolved -Nephrology consulted, appreciate recommendations -Strict intake and output -Renally dose medications -Avoid nephrotoxic medications -MIVF -Sodium bicarb -Trend BMP, CK Hospital course to date: 12/21: Venous ultrasound shows no DVT, Vascular surgery consulted who performed a fasciotomy and plan to transfer patient to [facility] post intervention. Neurology consulted 12/22: Transfer to ICU, GI and neurology consulted. 12/23: Patient will be transferred back to the floor from ICU. Her liver enzymes and creatinine are trending down. Will be started on gabapentin per neurology recommendations and antibiotics discontinued. 12/24: Continue supportive care. CPK slowly improving. Vascular plans for closure of fasciotomy early next week. PT OT evaluation and treatment closure done. Continue wound management. No evidence of withdrawal noted at this time. Continue to monitor LFTs which are also slightly improving. Plan discussed in detail with the patient who verbalized understanding 12/25: Patient seen and examined clinically stable continues to show some improvement. Closure of fasciotomy planned for tomorrow. Renal function is improving. CK ordered and pending 12/26: Patient seen and examined, wbc mildly elevated likely secondary to steroids, will change to po for two additional days and stop, benefit probably already achieved, continue wound dressing, sensory function improved, awaiting wound vac and closure. Patient advised on clinically progress. 12/27: Patient seen and examined awaiting her vascular surgery for closure of fasciotomy. CK is decreasing less than 9000 today. We will continue aggressive IV fluids until we have the resolution below 5000. LFTs on the downward trend also. Leukocytosis appears to have peaked steroids was changed to oral for 2 additional days today is 1 of 2.. Plan of care discussed in detail with the patient who verbalized understanding. 12/28: Left lower extremity compartment syndrome status post fasciotomies. Cause is still unclear and may represent some allergic reaction. Motor function is unchanged from original exam. Sensory function has improved with full sensation of the foot.vascular surgery to place wound vacs on the leg today. CK improved to the 8000 range today 12/29: Patient underwent excisional debridement of muscle and soft tissue from left leg wound yesterday. Patient also had wound VAC placement left leg fasciotomy incisions. The patient had moderate amount of superficial necrotic muscle in the anterior lateral compartments with minimal amount of superficial necrotic muscle in the posterior compartment. Follow-up culture results. CK levels have improved to 6900 range. AST/ALT continue to trend downward. 12/30: I discussed the case with Dr. Lopez who recommends home wound VAC as well as physical therapy. I also discussed these needs with case management who was attempting to arrange for discharge planning. CK continues to improve with levels in the 4000 range. 12/31: Still awaiting for home wound VAC arrangements to be made. Leukocytosis is much improved down to 13,900 today. LFTs continue to trend down to normal range. CK levels still in the 4000 range. Nephrology has signed off. Anticipate discharge later today or in a.m. 01/01: Still awaiting for home wound VAC arrangements to be made. Laboratories continue to include including LFTs, CK and leukocytosis. 01/02: Still awaiting for home wound VAC arrangements to be made. 01/03: Patient had an episode of syncope while working with PT today. Nurse reports patient lost consciousness for a few seconds and was helped back to the bed. Patient's blood pressure was noted to be hypotensive/orthostatic. We will bolus 500 normal saline IV fluid and monitor orthostatics. Case management reports that wound VAC should be delivered today. LFTs continue to trend down to normal range. CK levels still in the 2000 range. Nephrology has signed off. Anticipate discharge in a.m. given the syncope and once wound VAC arranged. Patient with low-grade temp. We will monitor. 01/04; patient is anxious to go home, wound VAC is delivered to the bedside, continue wound care Multiple social issues, DC planning per case management, left lower extremity Doppler negative for DVT 01/05; discharge planning, multiple social issues 01/06; continue current management, wound VAC in place, DC planning issues 01/07; discharge planning per case management, setting up wound VAC, setting up outpatient wound care Setting up follow-up visits with physicians, patient has multiple social issues and no payer source Continue current management discharge when medically stable 01/08; patient's LFTs are trending down, continue current management Wound VAC care, wound VAC change per instructions, wound care as indicated Discharge planning per case management 01/09; patient is medically stable for discharge Awaiting discharge planning coordinating with wound VAC and wound care Post discharge follow-up visit with vascular Dr. Lenard Kimble on 01/28/2020 at 10 AM History Interval history: I have seen and examined the patient at the bedside Patient's chart and medications reviewed Patient feels better, no new complaints Awaiting discharge, case management assisting with the discharge plan Hospitalist Physical - Constitutional Vitals: Temp Pulse Resp BP Pulse Ox 98.0 F 98 H 18 115/79 98 05/22/22 05:17 01/09/22 05:17 01/09/22 05:17 01/09/22 05:17 01/09/22 05:17 General appearance: Present: no acute distress, well-nourished, obese - EENT Eyes: Present: PERRL, EOM intact - Neck Neck: Present: supple, normal ROM - Respiratory Respiratory effort: normal Respiratory: bilateral: diminished, negative: rales, rhonchi, wheezing - Cardiovascular Rhythm: regular Heart Sounds: Present: S1 & S2 - Extremities Extremities: abnormal (Left lower extremity wound VAC in place, swelling erythema) Extremity abnormal: edema, erythema - Abdominal General gastrointestinal: soft, non-tender, non-distended, normal bowel sounds - Integumentary Integumentary: Present: clear, warm - Psychiatric Psychiatric: appropriate mood/affect, cooperative - Neurologic Neurologic: moves all extremities Results - Labs CBC & Chem 7: 01/04/22 05:01 01/08/22 05:22 Labs: Laboratory Last Values WBC 10.6 K/mm3 (4.5-11.0) 01/04/22 05:01 RBC 3.21 M/mm3 (3.65-5.03) L 01/04/22 05:01 Hgb 10.7 gm/dl (11.8-15.2) L 01/04/22 05:01 Hct 32.0 % (35.5-45.6) L 01/04/22 05:01 MCV 99 fl (84-94) H 01/04/22 05:01 MCH 33 pg (28-32) H 01/04/22 05:01 MCHC 33 % (32-34) 01/04/22 05:01 RDW 13.3 % (13.2-15.2) 01/04/22 05:01 Plt Count 427 K/mm3 (140-440) 01/04/22 05:01 Lymph % (Auto) 12.9 % (13.4-35.0) L 01/04/22 05:01 [place] % (Auto) 6.9 % (0.0-7.3) 01/04/22 05:01 Eos % (Auto) 0.4 % (0.0-4.3) 01/04/22 05:01 Baso % (Auto) 0.3 % (0.0-1.8) 01/04/22 05:01 Lymph # (Auto) 1.4 K/mm3 (1.2-5.4) 01/04/22 05:01 [place] # (Auto) 0.7 K/mm3 (0.0-0.8) 01/04/22 05:01 Eos # (Auto) 0.0 K/mm3 (0.0-0.4) 01/04/22 05:01 Baso # (Auto) 0.0 K/mm3 (0.0-0.1) 01/04/22 05:01 Add Manual Diff Complete 12/30/21 04:49 Total Counted 100 12/30/21 04:49 Seg Neutrophils % 79.5 % (40.0-70.0) H 01/04/22 05:01 Seg Neuts % (Manual) 83.0 % (40.0-70.0) H 12/30/21 04:49 Band Neutrophils % 2.0 % 12/30/21 04:49 Lymphocytes % (Manual) 5.0 % (13.4-35.0) L 12/30/21 04:49 Reactive Lymphs % (Man) 0 % 12/30/21 04:49 Monocytes % (Manual) 8.0 % (0.0-7.3) H 12/30/21 04:49 Eosinophils % (Manual) 0 % (0.0-4.3) 12/30/21 04:49 Basophils % (Manual) 0 % (0.0-1.8) 12/30/21 04:49 Metamyelocytes % 2.0 % 12/30/21 04:49 Myelocytes % 0 % 12/30/21 04:49 Promyelocytes % 0 % 12/30/21 04:49 Blast Cells % 0 % 12/30/21 04:49 Nucleated RBC % Not Reportable 12/30/21 04:49 Seg Neutrophils # 8.4 K/mm3 (1.8-7.7) H 01/04/22 05:01 Seg Neutrophils # Man 17.1 K/mm3 (1.8-7.7) H 12/30/21 04:49 Band Neutrophils # 0.4 K/mm3 12/30/21 04:49 Lymphocytes # (Manual) 1.0 K/mm3 (1.2-5.4) L 12/30/21 04:49 Abs React Lymphs (Man) 0.0 K/mm3 12/30/21 04:49 Monocytes # (Manual) 1.6 K/mm3 (0.0-0.8) H 12/30/21 04:49 Eosinophils # (Manual) 0.0 K/mm3 (0.0-0.4) 12/30/21 04:49 Basophils # (Manual) 0.0 K/mm3 (0.0-0.1) 12/30/21 04:49 Metamyelocytes # 0.4 K/mm3 12/30/21 04:49 Myelocytes # 0.0 K/mm3 12/30/21 04:49 Promyelocytes # 0.0 K/mm3 12/30/21 04:49 Blast Cells # 0.0 K/mm3 12/30/21 04:49 WBC Morphology Not Reportable 12/30/21 04:49 Hypersegmented Neuts Not Reportable 12/30/21 04:49 Hyposegmented Neuts Rare 12/30/21 04:49 Hypogranular Neuts Not Reportable 12/30/21 04:49 Smudge Cells Not Reportable 12/30/21 04:49 Toxic Granulation Not Reportable 12/30/21 04:49 Toxic Vacuolation Not Reportable 12/30/21 04:49 Dohle Bodies Not Reportable 12/30/21 04:49 Pelger-Huet Anomaly Not Reportable 12/30/21 04:49 [place] Rods Not Reportable 12/30/21 04:49 Platelet Estimate Consistent w auto 12/30/21 04:49 Clumped Platelets Not Reportable 12/30/21 04:49 Plt Clumps, EDTA Not Reportable 12/30/21 04:49 Large Platelets Rare 12/30/21 04:49 Giant Platelets Not Reportable 12/30/21 04:49 Platelet Satelliting Not Reportable 12/30/21 04:49 Plt Morphology Comment Not Reportable 12/30/21 04:49 RBC Morphology Not Reportable 12/30/21 04:49 Dimorphic RBCs Not Reportable 12/30/21 04:49 Polychromasia Not Reportable 12/30/21 04:49 Hypochromasia Not Reportable 12/30/21 04:49 Poikilocytosis Not Reportable 12/30/21 04:49 Anisocytosis Rare 12/30/21 04:49 Microcytosis Not Reportable 12/30/21 04:49 Macrocytosis Rare 12/30/21 04:49 Spherocytes Not Reportable 12/30/21 04:49 Pappenheimer Bodies Not Reportable 12/30/21 04:49 Sickle Cells Not Reportable 12/30/21 04:49 Target Cells Not Reportable 12/30/21 04:49 Tear Drop Cells Not Reportable 12/30/21 04:49 Ovalocytes Not Reportable 12/30/21 04:49 Helmet Cells Not Reportable 12/30/21 04:49 [place] Bodies Not Reportable 12/30/21 04:49 [place] Rings Not Reportable 12/30/21 04:49 [place] Cells Not Reportable 12/30/21 04:49 Bite Cells Not Reportable 12/30/21 04:49 Crenated Cell Not Reportable 12/30/21 04:49 Elliptocytes Not Reportable 12/30/21 04:49 Acanthocytes (Spur) Not Reportable 12/30/21 04:49 Rouleaux Not Reportable 12/30/21 04:49 Hemoglobin C Crystals Not Reportable 12/30/21 04:49 Schistocytes Not Reportable 12/30/21 04:49 Malaria parasites Not Reportable 12/30/21 04:49 [place] Bodies Not Reportable 12/30/21 04:49 Hem Pathologist Commnt No 12/30/21 04:49 PT 13.4 Sec. (12.2-14.9) 12/21/21 13:30 INR 0.92 (0.87-1.13) 12/21/21 13:30 APTT 25.8 Sec. (24.2-36.6) 12/21/21 13:30 Sodium 136 mmol/L (137-145) L 01/08/22 05:22 Potassium 3.8 mmol/L (3.6-5.0) 01/08/22 05:22 Chloride 101.0 mmol/L (98-107) 01/08/22 05:22 Carbon Dioxide 29 mmol/L (22-30) 01/08/22 05:22 Anion Gap 10 mmol/L 01/08/22 05:22 BUN 5 mg/dL (9-20) L 01/08/22 05:22 Creatinine 0.7 mg/dL (0.8-1.3) L 01/08/22 05:22 Estimated GFR > 60 ml/min 01/08/22 05:22 BUN/Creatinine Ratio 7 % 01/08/22 05:22 Glucose 103 mg/dL (75-100) H 01/08/22 05:22 Lactic Acid 1.40 mmol/L (0.7-2.0) 12/21/21 13:30 Calcium 8.9 mg/dL (8.4-10.2) 01/08/22 05:22 Phosphorus 2.80 mg/dL (2.5-4.5) 12/24/21 05:17 Magnesium 2.20 mg/dL (1.7-2.3) 12/24/21 05:17 Total Bilirubin 0.50 mg/dL (0.1-1.2) 01/08/22 05:22 Direct Bilirubin < 0.2 mg/dL (0-0.2) 01/03/22 04:00 Indirect Bilirubin 0.3 mg/dL 01/03/22 04:00 AST 42 units/L (5-40) H 01/08/22 05:22 ALT 108 units/L (7-56) H 01/08/22 05:22 Alkaline Phosphatase 77 units/L (35-129) 01/08/22 05:22 Ammonia 37.0 umol/L (25-60) 12/23/21 04:49 Total Creatine Kinase 1001 units/L (55-170) H 01/06/22 08:55 Total Protein 6.2 g/dL (6.3-8.2) L 01/08/22 05:22 Albumin 3.1 g/dL (3.9-5) L 01/08/22 05:22 Albumin/Globulin Ratio 1.0 % 01/08/22 05:22 Amylase 25 units/L (27-131) L 12/23/21 04:49 Lipase 10 units/L (13-60) L 12/23/21 04:49 Coronavirus (PCR) Negative (Negative) 12/22/21 11:40 Hepatitis A IgM Ab Nonreactive (NonReactive) 12/21/21 13:30 Hep Bs Antigen Non-reactive (Negative) 12/21/21 13:30 Hep B Core IgM Ab Non-reactive (NonReactive) 12/21/21 13:30 Hepatitis C Antibody Non-reactive (NonReactive) 12/21/21 13:30 HIV 1&2 Antibody Rapid Non react (Non React) 12/22/21 16:42 HIV P24 Antigen Non react (Non React) 12/22/21 16:42 Kaur/IV: Voiding Method Urinal Active Medications - Current Medications Current Medications: Generic Name Dose Route Start Last Admin Trade Name Freq PRN Reason Stop Dose Admin Acetaminophen 650 mg 01/04/22 22:14 01/05/22 00:08 Acetaminophen 325 Mg Tab PO 650 mg Q6H PRN Administration Pain, Mild (1-3) Albuterol 2.5 mg 12/21/21 06:15 Albuterol 2.5 Mg/3 Ml Nebu IH Q3HRT PRN Shortness Of Breath Diphenhydramine HCl 25 mg 12/21/21 06:24 01/05/22 17:12 Diphenhydramine 50 Mg/Ml Vial IV 25 mg Q6H PRN Administration Skin Irritation Docusate Sodium 100 mg 12/23/21 22:00 01/08/22 21:45 Docusate Sodium 100 Mg Cap PO 100 mg BID VLADIMIR Administration Famotidine 20 mg 12/26/21 10:00 01/08/22 21:44 Famotidine 20 Mg Tab PO 20 mg BID VLADIMIR Administration Gabapentin 300 mg 01/05/22 08:00 01/09/22 08:06 Gabapentin 300 Mg Cap PO 300 mg TID@0800,1600,2200 VLADIMIR Administration Heparin Sodium (Porcine) 5,000 unit 12/21/21 10:00 01/08/22 21:45 Heparin 5,000 Unit/1 Ml Vial SUB-Q 5,000 unit Q12HR VLADIMIR Administration Hydralazine HCl 10 mg 12/22/21 18:31 12/22/21 18:50 Hydralazine 20 Mg/1 Ml Inj IV 10 mg Q3HR PRN Administration Hypertension Hydromorphone HCl 0.5 mg 12/21/21 06:15 01/07/22 20:01 Hydromorphone 1 Mg/1 Ml Inj IV 0.5 mg Q3H PRN Administration Pain , Severe (7-10) Sodium Chloride 1,000 mls @ 75 mls/hr 01/03/22 01:00 01/08/22 21:48 Nacl 0.9% 1000 Ml IV 75 mls/hr DIRECT VLADIMIR Administration Ondansetron HCl 4 mg 12/21/21 06:15 01/03/22 10:38 Ondansetron 4 Mg/2 Ml Inj IV 4 mg Q8H PRN Administration Nausea And Vomiting Oxycodone/Acetaminophen 1 tab 01/07/22 10:57 01/09/22 08:06 Oxycodone /Acetaminophen 5-325mg Tab PO 1 tab Q6H PRN Administration Pain, Moderate (4-6) Sodium Chloride 10 ml 12/21/21 10:00 01/08/22 21:45 Sodium Chloride 0.9% 10 Ml Flush Syringe IV 10 ml BID VLADIMIR Administration Sodium Chloride 10 ml 12/21/21 06:15 01/07/22 20:02 Sodium Chloride 0.9% 10 Ml Flush Syringe IV 10 ml PRN PRN Administration LINE FLUSH Valsartan 160 mg 12/22/21 22:00 01/08/22 09:40 Valsartan 160mg Tab PO 160 mg DAILY VLADIMIR Administration Nutrition/Malnutrition Assess - Dietary Evaluation Nutrition/Malnutrition Findings: Nutrition Notes Start: 12/28/21 16:45 Freq: Status: Active Protocol: Document 01/06/22 14:21 OPAL (Rec: 01/06/22 14:46 OPAL [id number]) Nutrition Notes Initial or Follow up Reassessment Current Diagnosis Hypertension Other Pertinent Diagnosis Rabdomyolysis, Liver Failure, s/p L-LE 4 Compartment Fasciotomy w/Debridem. Current Diet Regular Diet + Dietary Supplements. (since B 12/29). Labs/Tests 01/06: BUN 5, Crea 0.7. Pertinent Medications 01/06: Nutritionally unremarkable. Height 5 ft 6 in Weight 86.183 kg [place] Body Weight (kg) 64.54 BMI 30.7 Weight change and time frame No body weight change reporterd in 9 days. Weight Status Obese Subjective/Other Information RD consult for routine F/U on dietary advancement. Pt's PO intake of meals has been Good (100%), according to ADL notes. Pt is on Room Air, O2 saturation @ 96%, according to Physical Assessment History notes. Pt presents L-LE Pitting Edema 2+, according to Physical Assessment History notes. Pt presents L-LE Vascular Wound with WoundVAC since , according to Physical Assessment History notes. Event on 01/03, Pt suffered a syncope during PT session, according to Progress notes. Pt is clearedd for discharge, it is pending due to several social issues, according to Progress notes. Percent of energy/protein needs met: Prescribed Regular Diet provides for energy/protein needs (2,289 Kcal/89 g) during LOS Burn Absent Trauma Absent GI Symptoms None Food Allergy No Skin Integrity/Comment L-LE Vascular Wound Current % PO Good (75-100%) Minimum of two criteria No #1 Nutrition Diagnosis Increased nutrient needs ( specify in comment below) Comments: Protein to support wound healing processes. Diagnosis Progress(for reassessment Continues documentation) Is patient on ventilator? No Is Patient Ambulatory and/or Out of Bed No [facility] 2083.920 Kcal/Kg value to use for calculation 19 Approximate Energy Requirements Using 1637 kcal/Kg Calculation Used for Recommendations Kcal/kg Additional Notes Protein: 1.25-1.5 g/Kg AdjBW; 85-114 g/day. Fluids: 1 ml/Kcal, or as per MD. Nutrition Intervention Change Diet Order: Continue Regular Diet. Add Supplement/Snack (indicate name/kcal Continue 28.8 g pkt Calvin; BID /protein ) . Provides kCal: 190 Provides Protein (gm) 5 Goal #1 Support, through dietary supplementation, wound healing processes during LOS. Goal #2 Adjust the dietary intervention to better serve Pt's needs and clinical conditions during LOS. Goal #3 Maintain body weight within +/ -3% of admission body weight during LOS. Revisit per MD consult or patient Sign Off request: Additional Comments Continue monitoring food tolerance, %PO intake of meals , and BM.
[2022-01-09] MEDS: DOCUSATE SODIUM 100 MG CAP PO SCH ×2 (09:41→22:11)
[2022-01-09] MEDS: FAMOTIDINE 20 MG TAB PO SCH ×2 (09:41→22:11)
[2022-01-09] MEDS: HEPARIN 5,000 UNIT/1 ML VIAL SUB-Q SCH ×2 (09:41→22:11)
[2022-01-09] MEDS: VALSARTAN 160MG TAB PO SCH (09:41)
[2022-01-10] MEDS: oxyCODONE /ACETAMINOPHEN 5-325MG TAB PO PRN ×2 (05:21→17:17)
[2022-01-10] MEDS: GABAPENTIN 300 MG CAP PO SCH ×4 (09:53→21:05)
[2022-01-10] MEDS: FAMOTIDINE 20 MG TAB PO SCH ×3 (09:53→21:06)
[2022-01-10] MEDS: VALSARTAN 160MG TAB PO SCH (09:53)
[2022-01-10] MEDS: HEPARIN 5,000 UNIT/1 ML VIAL SUB-Q SCH ×3 (09:53→21:06)
[2022-01-10] MEDS: DOCUSATE SODIUM 100 MG CAP PO SCH ×3 (09:56→21:05)
--- NOTE | 2022-01-10 10:05 | Progress Note ---
Assessment and Plan Assessment and plan: This is a 36 year old transgendered female undergoing gender transformation with silicone injection to buttocks ([place] 2016) and breast implants, heavy drinker on the weekends (bottle of vodka) who presented to [facility] on 12/21 because of adverse drug reaction after reportedly self administration of rocephin and PCN for sore throat. Patient reportedly collapsed while checking in to the emergency department, has complains of severe 10 out of 10 pain in left thigh and has noticeable mottling of skin in thigh and left lower abdomen. Patient underwent a CT of the left leg which showed possible cellulitis with no drainable fluid collection and was started on empiric antibiotics. Patient admitted to the hospital service with diagnosis of acute liver failure, rhabdomyolysis, s/p 4 compartment fasciotomy to left lower extremity Acute liver failure -GI consulted, appreciate recommendations -Per GI: Suspect due to rhabdomyolysis given elevated creatinine kinase levels -If ALT continues to rise recommend MRCP -Abdominal ultrasound showed mild diffuse biliary dilation, obstruction to lesion of the distal common bile duct cannot be excluded consider MRCP, no evidence of gallstones within the gallbladder -PPI -Regular diet -BR: colace -Trend LFTs Compartment syndrome to LLE -Vascular surgery consulted, appreciate recommendations -s/p self admin of IM abx to midthigh -c/o pain, decreased sensation, pulses were dopplarable, paralysis, mottled skin -s/p 4 compartment tracheotomy on 12/21 with vascular surgery -Bilateral lower extremity Doppler ultrasound showed no DVT -Left lower extremity CT with contrast showed appearance of posterior soft tissue complex cellulitis with small subcutaneous lymph nodes, no drainable fluid collections present, contusion could have similar appearance -Bilateral lower extremity arterial duplex showed no significant lower extremity peripheral artery disease -Normal ABIs Vascular follow-up with Dr. Lenard Kimble on 01/27/2022 at 10 AM Peripheral neuropathy -Avoid delirium -Reorientation as needed -Maintain sleep-wake cycle -As needed analgesia -Neurology consulted, appreciate recommendations -Gabapentin HTN -Blood pressure monitoring per protocol -Valsartan -PRN hydralazine Rhabdomyolysis acute kidney injury with vasomotor nephropathy now resolved -Nephrology consulted, appreciate recommendations -Strict intake and output -Renally dose medications -Avoid nephrotoxic medications -MIVF -Sodium bicarb -Trend BMP, CK Hospital course to date: 12/21: Venous ultrasound shows no DVT, Vascular surgery consulted who performed a fasciotomy and plan to transfer patient to [facility] post intervention. Neurology consulted 12/22: Transfer to ICU, GI and neurology consulted. 12/23: Patient will be transferred back to the floor from ICU. Her liver enzymes and creatinine are trending down. Will be started on gabapentin per neurology recommendations and antibiotics discontinued. 12/24: Continue supportive care. CPK slowly improving. Vascular plans for closure of fasciotomy early next week. PT OT evaluation and treatment closure done. Continue wound management. No evidence of withdrawal noted at this time. Continue to monitor LFTs which are also slightly improving. Plan discussed in detail with the patient who verbalized understanding 12/25: Patient seen and examined clinically stable continues to show some improvement. Closure of fasciotomy planned for tomorrow. Renal function is improving. CK ordered and pending 12/26: Patient seen and examined, wbc mildly elevated likely secondary to steroids, will change to po for two additional days and stop, benefit probably already achieved, continue wound dressing, sensory function improved, awaiting wound vac and closure. Patient advised on clinically progress. 12/27: Patient seen and examined awaiting her vascular surgery for closure of fasciotomy. CK is decreasing less than 9000 today. We will continue aggressive IV fluids until we have the resolution below 5000. LFTs on the downward trend also. Leukocytosis appears to have peaked steroids was changed to oral for 2 additional days today is 1 of 2.. Plan of care discussed in detail with the patient who verbalized understanding. 12/28: Left lower extremity compartment syndrome status post fasciotomies. Cause is still unclear and may represent some allergic reaction. Motor function is unchanged from original exam. Sensory function has improved with full sensation of the foot.vascular surgery to place wound vacs on the leg today. CK improved to the 8000 range today 12/29: Patient underwent excisional debridement of muscle and soft tissue from left leg wound yesterday. Patient also had wound VAC placement left leg fasciotomy incisions. The patient had moderate amount of superficial necrotic muscle in the anterior lateral compartments with minimal amount of superficial necrotic muscle in the posterior compartment. Follow-up culture results. CK levels have improved to 6900 range. AST/ALT continue to trend downward. 12/30: I discussed the case with Dr. Lopez who recommends home wound VAC as well as physical therapy. I also discussed these needs with case management who was attempting to arrange for discharge planning. CK continues to improve with levels in the 4000 range. 12/31: Still awaiting for home wound VAC arrangements to be made. Leukocytosis is much improved down to 13,900 today. LFTs continue to trend down to normal range. CK levels still in the 4000 range. Nephrology has signed off. Anticipate discharge later today or in a.m. 01/01: Still awaiting for home wound VAC arrangements to be made. Laboratories continue to include including LFTs, CK and leukocytosis. 01/02: Still awaiting for home wound VAC arrangements to be made. 01/03: Patient had an episode of syncope while working with PT today. Nurse reports patient lost consciousness for a few seconds and was helped back to the bed. Patient's blood pressure was noted to be hypotensive/orthostatic. We will bolus 500 normal saline IV fluid and monitor orthostatics. Case management reports that wound VAC should be delivered today. LFTs continue to trend down to normal range. CK levels still in the 2000 range. Nephrology has signed off. Anticipate discharge in a.m. given the syncope and once wound VAC arranged. Patient with low-grade temp. We will monitor. 01/04; patient is anxious to go home, wound VAC is delivered to the bedside, continue wound care Multiple social issues, DC planning per case management, left lower extremity Doppler negative for DVT 01/05; discharge planning, multiple social issues 01/06; continue current management, wound VAC in place, DC planning issues 01/07; discharge planning per case management, setting up wound VAC, setting up outpatient wound care Setting up follow-up visits with physicians, patient has multiple social issues and no payer source Continue current management discharge when medically stable 01/08; patient's LFTs are trending down, continue current management Wound VAC care, wound VAC change per instructions, wound care as indicated Discharge planning per case management 01/09; patient is medically stable for discharge Awaiting discharge planning coordinating with wound VAC and wound care Post discharge follow-up visit with vascular Dr. Lenard Kimble on 01/28/2020 at 10 AM 01/10; vascular /IR to reevaluate with the patient today Continue current management History Interval history: I have seen and examined the patient at the bedside Patient's chart and medications reviewed Patient's wound VAC and wound infection has some foul smell Still awaiting wound care personnel to do the wound care and dressing Patient is anxious to go home Vital signs noted Hospitalist Physical - Constitutional Vitals: Temp Pulse Resp BP Pulse Ox 98.0 F 98 H 18 115/79 98 01/09/22 05:17 01/09/22 05:17 01/10/22 06:21 01/09/22 05:17 01/09/22 22:00 General appearance: Present: no acute distress, well-nourished, obese - EENT Eyes: Present: PERRL, EOM intact - Neck Neck: Present: supple, normal ROM - Respiratory Respiratory effort: normal Respiratory: bilateral: diminished, negative: rales, rhonchi, wheezing - Cardiovascular Rhythm: regular Heart Sounds: Present: S1 & S2 - Extremities Extremities: no ischemia, No edema, abnormal (Left lower extremity wound VAC in place) Extremity abnormal: other (Swelling and wound infection) - Abdominal General gastrointestinal: soft, non-tender, non-distended, normal bowel sounds - Integumentary Integumentary: Present: clear, warm - Psychiatric Psychiatric: appropriate mood/affect, cooperative - Neurologic Neurologic: moves all extremities Results - Labs CBC & Chem 7: 01/10/22 19:01 01/08/22 05:22 Labs: Laboratory Last Values WBC 10.6 K/mm3 (4.5-11.0) 01/04/22 05:01 RBC 3.21 M/mm3 (3.65-5.03) L 01/04/22 05:01 Hgb 10.7 gm/dl (11.8-15.2) L 01/04/22 05:01 Hct 32.0 % (35.5-45.6) L 01/04/22 05:01 MCV 99 fl (84-94) H 01/04/22 05:01 MCH 33 pg (28-32) H 01/04/22 05:01 MCHC 33 % (32-34) 01/04/22 05:01 RDW 13.3 % (13.2-15.2) 01/04/22 05:01 Plt Count 427 K/mm3 (140-440) 01/04/22 05:01 Lymph % (Auto) 12.9 % (13.4-35.0) L 01/04/22 05:01 [place] % (Auto) 6.9 % (0.0-7.3) 01/04/22 05:01 Eos % (Auto) 0.4 % (0.0-4.3) 01/04/22 05:01 Baso % (Auto) 0.3 % (0.0-1.8) 01/04/22 05:01 Lymph # (Auto) 1.4 K/mm3 (1.2-5.4) 01/04/22 05:01 [place] # (Auto) 0.7 K/mm3 (0.0-0.8) 01/04/22 05:01 Eos # (Auto) 0.0 K/mm3 (0.0-0.4) 01/04/22 05:01 Baso # (Auto) 0.0 K/mm3 (0.0-0.1) 01/04/22 05:01 Add Manual Diff Complete 12/30/21 04:49 Total Counted 100 12/30/21 04:49 Seg Neutrophils % 79.5 % (40.0-70.0) H 01/04/22 05:01 Seg Neuts % (Manual) 83.0 % (40.0-70.0) H 12/30/21 04:49 Band Neutrophils % 2.0 % 12/30/21 04:49 Lymphocytes % (Manual) 5.0 % (13.4-35.0) L 12/30/21 04:49 Reactive Lymphs % (Man) 0 % 12/30/21 04:49 Monocytes % (Manual) 8.0 % (0.0-7.3) H 12/30/21 04:49 Eosinophils % (Manual) 0 % (0.0-4.3) 12/30/21 04:49 Basophils % (Manual) 0 % (0.0-1.8) 12/30/21 04:49 Metamyelocytes % 2.0 % 12/30/21 04:49 Myelocytes % 0 % 12/30/21 04:49 Promyelocytes % 0 % 12/30/21 04:49 Blast Cells % 0 % 12/30/21 04:49 Nucleated RBC % Not Reportable 12/30/21 04:49 Seg Neutrophils # 8.4 K/mm3 (1.8-7.7) H 01/04/22 05:01 Seg Neutrophils # Man 17.1 K/mm3 (1.8-7.7) H 12/30/21 04:49 Band Neutrophils # 0.4 K/mm3 12/30/21 04:49 Lymphocytes # (Manual) 1.0 K/mm3 (1.2-5.4) L 12/30/21 04:49 Abs React Lymphs (Man) 0.0 K/mm3 12/30/21 04:49 Monocytes # (Manual) 1.6 K/mm3 (0.0-0.8) H 12/30/21 04:49 Eosinophils # (Manual) 0.0 K/mm3 (0.0-0.4) 12/30/21 04:49 Basophils # (Manual) 0.0 K/mm3 (0.0-0.1) 12/30/21 04:49 Metamyelocytes # 0.4 K/mm3 12/30/21 04:49 Myelocytes # 0.0 K/mm3 12/30/21 04:49 Promyelocytes # 0.0 K/mm3 12/30/21 04:49 Blast Cells # 0.0 K/mm3 12/30/21 04:49 WBC Morphology Not Reportable 12/30/21 04:49 Hypersegmented Neuts Not Reportable 12/30/21 04:49 Hyposegmented Neuts Rare 12/30/21 04:49 Hypogranular Neuts Not Reportable 12/30/21 04:49 Smudge Cells Not Reportable 12/30/21 04:49 Toxic Granulation Not Reportable 12/30/21 04:49 Toxic Vacuolation Not Reportable 12/30/21 04:49 Dohle Bodies Not Reportable 12/30/21 04:49 Pelger-Huet Anomaly Not Reportable 12/30/21 04:49 [place] Rods Not Reportable 12/30/21 04:49 Platelet Estimate Consistent w auto 12/30/21 04:49 Clumped Platelets Not Reportable 12/30/21 04:49 Plt Clumps, EDTA Not Reportable 12/30/21 04:49 Large Platelets Rare 12/30/21 04:49 Giant Platelets Not Reportable 12/30/21 04:49 Platelet Satelliting Not Reportable 12/30/21 04:49 Plt Morphology Comment Not Reportable 12/30/21 04:49 RBC Morphology Not Reportable 12/30/21 04:49 Dimorphic RBCs Not Reportable 12/30/21 04:49 Polychromasia Not Reportable 12/30/21 04:49 Hypochromasia Not Reportable 12/30/21 04:49 Poikilocytosis Not Reportable 12/30/21 04:49 Anisocytosis Rare 12/30/21 04:49 Microcytosis Not Reportable 12/30/21 04:49 Macrocytosis Rare 12/30/21 04:49 Spherocytes Not Reportable 12/30/21 04:49 Pappenheimer Bodies Not Reportable 12/30/21 04:49 Sickle Cells Not Reportable 12/30/21 04:49 Target Cells Not Reportable 12/30/21 04:49 Tear Drop Cells Not Reportable 12/30/21 04:49 Ovalocytes Not Reportable 12/30/21 04:49 Helmet Cells Not Reportable 12/30/21 04:49 Parsons-Elsmore Bodies Not Reportable 12/30/21 04:49 [place] Rings Not Reportable 12/30/21 04:49 [place]ien Cells Not Reportable 12/30/21 04:49 Bite Cells Not Reportable 12/30/21 04:49 Crenated Cell Not Reportable 12/30/21 04:49 Elliptocytes Not Reportable 12/30/21 04:49 Acanthocytes (Spur) Not Reportable 12/30/21 04:49 Rouleaux Not Reportable 12/30/21 04:49 Hemoglobin C Crystals Not Reportable 12/30/21 04:49 Schistocytes Not Reportable 12/30/21 04:49 Malaria parasites Not Reportable 12/30/21 04:49 [place] Bodies Not Reportable 12/30/21 04:49 Hem Pathologist Commnt No 12/30/21 04:49 PT 13.4 Sec. (12.2-14.9) 12/21/21 13:30 INR 0.92 (0.87-1.13) 12/21/21 13:30 APTT 25.8 Sec. (24.2-36.6) 12/21/21 13:30 Sodium 136 mmol/L (137-145) L 01/08/22 05:22 Potassium 3.8 mmol/L (3.6-5.0) 01/08/22 05:22 Chloride 101.0 mmol/L (98-107) 01/08/22 05:22 Carbon Dioxide 29 mmol/L (22-30) 01/08/22 05:22 Anion Gap 10 mmol/L 01/08/22 05:22 BUN 5 mg/dL (9-20) L 01/08/22 05:22 Creatinine 0.7 mg/dL (0.8-1.3) L 01/08/22 05:22 Estimated GFR > 60 ml/min 01/08/22 05:22 BUN/Creatinine Ratio 7 % 01/08/22 05:22 Glucose 103 mg/dL (75-100) H 01/08/22 05:22 Lactic Acid 1.40 mmol/L (0.7-2.0) 12/21/21 13:30 Calcium 8.9 mg/dL (8.4-10.2) 01/08/22 05:22 Phosphorus 2.80 mg/dL (2.5-4.5) 12/24/21 05:17 Magnesium 2.20 mg/dL (1.7-2.3) 12/24/21 05:17 Total Bilirubin 0.50 mg/dL (0.1-1.2) 01/08/22 05:22 Direct Bilirubin < 0.2 mg/dL (0-0.2) 01/03/22 04:00 Indirect Bilirubin 0.3 mg/dL 01/03/22 04:00 AST 42 units/L (5-40) H 01/08/22 05:22 ALT 108 units/L (7-56) H 01/08/22 05:22 Alkaline Phosphatase 77 units/L (35-129) 01/08/22 05:22 Ammonia 37.0 umol/L (25-60) 12/23/21 04:49 Total Creatine Kinase 1001 units/L (55-170) H 01/06/22 08:55 Total Protein 6.2 g/dL (6.3-8.2) L 01/08/22 05:22 Albumin 3.1 g/dL (3.9-5) L 01/08/22 05:22 Albumin/Globulin Ratio 1.0 % 01/08/22 05:22 Amylase 25 units/L (27-131) L 12/23/21 04:49 Lipase 10 units/L (13-60) L 12/23/21 04:49 Coronavirus (PCR) Negative (Negative) 12/22/21 11:40 Hepatitis A IgM Ab Nonreactive (NonReactive) 12/21/21 13:30 Hep Bs Antigen Non-reactive (Negative) 12/21/21 13:30 Hep B Core IgM Ab Non-reactive (NonReactive) 12/21/21 13:30 Hepatitis C Antibody Non-reactive (NonReactive) 12/21/21 13:30 HIV 1&2 Antibody Rapid Non react (Non React) 12/22/21 16:42 HIV P24 Antigen Non react (Non React) 12/22/21 16:42 Kaur/IV: Voiding Method Urinal Active Medications - Current Medications Current Medications: Generic Name Dose Route Start Last Admin Trade Name Freq PRN Reason Stop Dose Admin Acetaminophen 650 mg 01/04/22 22:14 01/05/22 00:08 Acetaminophen 325 Mg Tab PO 650 mg Q6H PRN Administration Pain, Mild (1-3) Albuterol 2.5 mg 12/21/21 06:15 Albuterol 2.5 Mg/3 Ml Nebu IH Q3HRT PRN Shortness Of Breath Diphenhydramine HCl 25 mg 12/21/21 06:24 01/05/22 17:12 Diphenhydramine 50 Mg/Ml Vial IV 25 mg Q6H PRN Administration Skin Irritation Docusate Sodium 100 mg 12/23/21 22:00 01/10/22 09:56 Docusate Sodium 100 Mg Cap PO 100 mg BID VLADIMIR Administration Famotidine 20 mg 12/26/21 10:00 01/10/22 09:53 Famotidine 20 Mg Tab PO 20 mg BID VLADIMIR Administration Gabapentin 300 mg 01/05/22 08:00 01/10/22 09:53 Gabapentin 300 Mg Cap PO 300 mg TID@0800,1600,2200 VLADIMIR Administration Heparin Sodium (Porcine) 5,000 unit 12/21/21 10:00 01/10/22 09:53 Heparin 5,000 Unit/1 Ml Vial SUB-Q 5,000 unit Q12HR VLADIMIR Administration Hydralazine HCl 10 mg 12/22/21 18:31 12/22/21 18:50 Hydralazine 20 Mg/1 Ml Inj IV 10 mg Q3HR PRN Administration Hypertension Hydromorphone HCl 0.5 mg 12/21/21 06:15 01/07/22 20:01 Hydromorphone 1 Mg/1 Ml Inj IV 0.5 mg Q3H PRN Administration Pain , Severe (7-10) Ondansetron HCl 4 mg 12/21/21 06:15 01/03/22 10:38 Ondansetron 4 Mg/2 Ml Inj IV 4 mg Q8H PRN Administration Nausea And Vomiting Oxycodone/Acetaminophen 1 tab 01/07/22 10:57 01/10/22 05:21 Oxycodone /Acetaminophen 5-325mg Tab PO 1 tab Q6H PRN Administration Pain, Moderate (4-6) Sodium Chloride 10 ml 12/21/21 10:00 01/10/22 09:57 Sodium Chloride 0.9% 10 Ml Flush Syringe IV 10 ml BID VLADIMIR Administration Sodium Chloride 10 ml 12/21/21 06:15 01/07/22 20:02 Sodium Chloride 0.9% 10 Ml Flush Syringe IV 10 ml PRN PRN Administration LINE FLUSH Valsartan 160 mg 12/22/21 22:00 01/10/22 09:53 Valsartan 160mg Tab PO 160 mg DAILY VLADIMIR Administration Nutrition/Malnutrition Assess - Dietary Evaluation Nutrition/Malnutrition Findings: Nutrition Notes Start: 12/28/21 16:45 Freq: Status: Active Protocol: Document 01/06/22 14:21 OPAL (Rec: 01/06/22 14:46 OPAL [id number]) Nutrition Notes Initial or Follow up Reassessment Current Diagnosis Hypertension Other Pertinent Diagnosis Rabdomyolysis, Liver Failure, s/p L-LE 4 Compartment Fasciotomy w/Debridem. Current Diet Regular Diet + Dietary Supplements. (since B 12/29). Labs/Tests 01/06: BUN 5, Crea 0.7. Pertinent Medications 01/06: Nutritionally unremarkable. Height 5 ft 6 in Weight 86.183 kg [place] Body Weight (kg) 64.54 BMI 30.7 Weight change and time frame No body weight change reporterd in 9 days. Weight Status Obese Subjective/Other Information RD consult for routine F/U on dietary advancement. Pt's PO intake of meals has been Good (100%), according to ADL notes. Pt is on Room Air, O2 saturation @ 96%, according to Physical Assessment History notes. Pt presents L-LE Pitting Edema 2+, according to Physical Assessment History notes. Pt presents L-LE Vascular Wound with WoundVAC since , according to Physical Assessment History notes. Event on 01/03, Pt suffered a syncope during PT session, according to Progress notes. Pt is clearedd for discharge, it is pending due to several social issues, according to Progress notes. Percent of energy/protein needs met: Prescribed Regular Diet provides for energy/protein needs (2,289 Kcal/89 g) during LOS Burn Absent Trauma Absent GI Symptoms None Food Allergy No Skin Integrity/Comment L-LE Vascular Wound Current % PO Good (75-100%) Minimum of two criteria No #1 Nutrition Diagnosis Increased nutrient needs ( specify in comment below) Comments: Protein to support wound healing processes. Diagnosis Progress(for reassessment Continues documentation) Is patient on ventilator? No Is Patient Ambulatory and/or Out of Bed No REE-([facility]-confined to bed) 2083.920 Kcal/Kg value to use for calculation 19 Approximate Energy Requirements Using 1637 kcal/Kg Calculation Used for Recommendations Kcal/kg Additional Notes Protein: 1.25-1.5 g/Kg AdjBW; 85-114 g/day. Fluids: 1 ml/Kcal, or as per MD. Nutrition Intervention Change Diet Order: Continue Regular Diet. Add Supplement/Snack (indicate name/kcal Continue 28.8 g pkt Calvin; BID /protein ) . Provides kCal: 190 Provides Protein (gm) 5 Goal #1 Support, through dietary supplementation, wound healing processes during LOS. Goal #2 Adjust the dietary intervention to better serve Pt's needs and clinical conditions during LOS. Goal #3 Maintain body weight within +/ -3% of admission body weight during LOS. Revisit per MD consult or patient Sign Off request: Additional Comments Continue monitoring food tolerance, %PO intake of meals , and BM.
--- NOTE | 2022-01-10 13:41 | Progress Note ---
Assessment and Plan Left lower extremity compartment syndrome status post fasciotomies. There is a smell compatible with a infection. Started patient on doxycycline for 7 days. Prior wound cultures not back. Contacted CNO about getting wound care to see the patient more regularly for wound VAC changes. If there is an infection, may need Dakin's for a few days prior to returning to wound VAC. Wound care will be seeing patient today for wound VAC removal and evaluation. Subjective Date of service: 01/10/22 Principal diagnosis: abnormal liver enzymes Interval history: Palpable left dorsalis pedis and posterior tibial pulse. Sensory intact to foot. Still cannot move foot/toes. Wound VAC has not been changed in 6 days. Requires wound VAC change with evaluation for Dakin's. Objective - Constitutional Vitals: Vital Signs - 12hr 01/10/22 01/10/22 01/10/22 05:21 06:21 10:00 Respiratory 18 18 Rate O2 Sat by Pulse 98 Oximetry General appearance: Present: no acute distress - EENT Eyes: EOM intact ENT: hearing intact - Respiratory Respiratory effort: normal Extremities: normal temperature, normal color, abnormal (Fasciotomies with wound vacs on the left leg) - Gastrointestinal General gastrointestinal: Present: soft, non-tender - Psychiatric Psychiatric: appropriate mood/affect, cooperative - Labs CBC & Chem 7: 01/04/22 05:01 01/08/22 05:22 Medications & Allergies - Medications Allergies/Adverse Reactions: Allergies ceftriaxone [From Rocephin] Allergy (Severe, Verified 12/23/21 10:23) Unknown SEVERE RASH MOTTLING OF THE SKIN POST ADMINISTRATION OF IM [employer] Penicillins Allergy (Severe, Verified 12/23/21 10:23) Unknown SEVERE RASH MOTTLING OF THE SKIN POST ADMINISTRATION OF IM [employer] Home Medications: Home Medications Medication Instructions Recorded Confirmed Last Taken Type No Known Home Medications [No 12/21/21 12/21/21 Unknown History Reported Home Medications] Active Medications: Generic Name Dose Route Start Last Admin Trade Name Freq PRN Reason Stop Dose Admin Acetaminophen 650 mg 01/04/22 22:14 01/05/22 00:08 Acetaminophen 325 Mg Tab PO 650 mg Q6H PRN Administration Pain, Mild (1-3) Albuterol 2.5 mg 12/21/21 06:15 Albuterol 2.5 Mg/3 Ml Nebu IH Q3HRT PRN Shortness Of Breath Diphenhydramine HCl 25 mg 12/21/21 06:24 01/05/22 17:12 Diphenhydramine 50 Mg/Ml Vial IV 25 mg Q6H PRN Administration Skin Irritation Docusate Sodium 100 mg 12/23/21 22:00 01/10/22 09:56 Docusate Sodium 100 Mg Cap PO 100 mg BID VLADIMIR Administration Famotidine 20 mg 12/26/21 10:00 01/10/22 09:53 Famotidine 20 Mg Tab PO 20 mg BID VLADIMIR Administration Gabapentin 300 mg 01/05/22 08:00 01/10/22 09:53 Gabapentin 300 Mg Cap PO 300 mg TID@0800,1600,2200 VLADIMIR Administration Heparin Sodium (Porcine) 5,000 unit 12/21/21 10:00 01/10/22 09:53 Heparin 5,000 Unit/1 Ml Vial SUB-Q 5,000 unit Q12HR VLADIMIR Administration Hydralazine HCl 10 mg 12/22/21 18:31 12/22/21 18:50 Hydralazine 20 Mg/1 Ml Inj IV 10 mg Q3HR PRN Administration Hypertension Hydromorphone HCl 0.5 mg 12/21/21 06:15 01/07/22 20:01 Hydromorphone 1 Mg/1 Ml Inj IV 0.5 mg Q3H PRN Administration Pain , Severe (7-10) Ondansetron HCl 4 mg 12/21/21 06:15 01/03/22 10:38 Ondansetron 4 Mg/2 Ml Inj IV 4 mg Q8H PRN Administration Nausea And Vomiting Oxycodone/Acetaminophen 1 tab 01/07/22 10:57 01/10/22 05:21 Oxycodone /Acetaminophen 5-325mg Tab PO 1 tab Q6H PRN Administration Pain, Moderate (4-6) Sodium Chloride 10 ml 12/21/21 10:00 01/10/22 09:57 Sodium Chloride 0.9% 10 Ml Flush Syringe IV 10 ml BID VLADIMIR Administration Sodium Chloride 10 ml 12/21/21 06:15 01/07/22 20:02 Sodium Chloride 0.9% 10 Ml Flush Syringe IV 10 ml PRN PRN Administration LINE FLUSH Valsartan 160 mg 12/22/21 22:00 01/10/22 09:53 Valsartan 160mg Tab PO 160 mg DAILY VLADIMIR Administration
[2022-01-10] MEDS ORDERED: DOXYCYCLINE HYCLATE 100 MG in SODIUM CHLORIDE 0.9% 250ML 250 ML IV SCH (15:00)
[2022-01-10] MEDS: HYDROmorphone 1 MG/1 ML INJ IV PRN (18:40)
[2022-01-10] MEDS: diphenhydrAMINE 50 MG/ML VIAL IV PRN (18:40)
[2022-01-10] MEDS: DOXYCYCLINE HYCLATE 100 MG in SODIUM CHLORIDE 0.9% 250ML 250 ML IV SCH (18:41)
[2022-01-10] MEDS ORDERED: SODIUM CHLORIDE 0.9% IRR 1,000 ML BOTTLE IR PRN (18:48)
[2022-01-10] MEDS: SODIUM CHLORIDE 0.9% IRR 500 ML BOTTLE IR PRN ×2 (19:28→19:32)
[2022-01-10 19:29] LABS: Hematocrit 33.3 % (35.5-45.6); Hemoglobin 11.3 gm/dl (11.8-15.2); Mean Corpuscular HGB Conc 34 % (32-34); Mean Corpuscular Volume 98 fl (84-94); Platelet Count 450 K/mm3 (140-440); Red Blood Count 3.41 M/mm3 (3.65-5.03); Red Cell Distribution Width 13.3 % (13.2-15.2)
[2022-01-11] MEDS: HYDROmorphone 1 MG/1 ML INJ IV PRN ×2 (05:09→12:30)
[2022-01-11] MEDS: DOXYCYCLINE HYCLATE 100 MG in SODIUM CHLORIDE 0.9% 250ML 250 ML IV SCH ×2 (07:19→17:09)
[2022-01-11] MEDS: GABAPENTIN 300 MG CAP PO SCH ×3 (08:00→21:55)
[2022-01-11] MEDS: DOCUSATE SODIUM 100 MG CAP PO SCH ×2 (09:16→21:54)
[2022-01-11] MEDS: HEPARIN 5,000 UNIT/1 ML VIAL SUB-Q SCH ×2 (09:16→21:55)
[2022-01-11] MEDS: VALSARTAN 160MG TAB PO SCH (09:16)
[2022-01-11] MEDS: FAMOTIDINE 20 MG TAB PO SCH ×2 (09:16→21:55)
[2022-01-11] MEDS: oxyCODONE /ACETAMINOPHEN 5-325MG TAB PO PRN ×2 (13:42→19:25)
[2022-01-11] MEDS: SODIUM HYPOCHLORITE, DAKIN'S FULL STRENGTH (0.5%) 473 ML TOPICAL SOLN TP SCH (13:48)
--- NOTE | 2022-01-11 17:37 | Progress Note ---
Assessment and Plan Assessment and plan: This is a 36 year old transgendered female undergoing gender transformation with silicone injection to buttocks ([place] 2016) and breast implants, heavy drinker on the weekends (bottle of vodka) who presented to [facility] on 12/21 because of adverse drug reaction after reportedly self administration of rocephin and PCN for sore throat. Patient reportedly collapsed while checking in to the emergency department, has complains of severe 10 out of 10 pain in left thigh and has noticeable mottling of skin in thigh and left lower abdomen. Patient underwent a CT of the left leg which showed possible cellulitis with no drainable fluid collection and was started on empiric antibiotics. Patient admitted to the hospital service with diagnosis of acute liver failure, rhabdomyolysis, s/p 4 compartment fasciotomy to left lower extremity. Patient received antibiotics, wound care, wound VAC treatment and was planning to be discharged However developed a wound infection, wound VAC was removed, medical personnel aggressively treating the patient. Discharge was held Assessment and plan; Compartment syndrome to E -Vascular surgery consulted, appreciate recommendations -s/p self admin of IM abx to [facility] -c/o pain, decreased sensation, pulses were dopplarable, paralysis, mottled skin -s/p 4 compartment tracheotomy on 12/21 with vascular surgery -Bilateral lower extremity Doppler ultrasound showed no DVT -Left lower extremity CT with contrast showed appearance of posterior soft tissue complex cellulitis with small subcutaneous lymph nodes, no drainable fluid collections present, contusion could have similar appearance -Bilateral lower extremity arterial duplex showed no significant lower extremity peripheral artery disease -Normal ABIs Patient received wound VAC, with aggressive management and frequent changing. And with supportive care Patient was being prepared to discharge with home health and outpatient wound care 3 times a week. However patient's wound got significantly infected, wound VAC was removed, wound care personal consulted and they are aggressively treating the wounds. Once the wound infection improves, patient may receive wound VAC and then patient may be discharged home with follow-up visit with Dr. Lenard Kimble Outpatient wound care 3 times a week Peripheral neuropathy Continue gabapentin Neurology evaluated HTN Moderate control, continue current antihypertensives As needed medications Rhabdomyolysis; Improved from 95,000 CK -1001 week ago Closely monitor IV hydration acute kidney injury with vasomotor nephropathy now resolved Monitor renal function Avoid nephrotoxin. gentle hydration as needed Hospital course to date: 5/3: Venous ultrasound shows no DVT, Vascular surgery consulted who performed a fasciotomy and plan to transfer patient to [facility] post intervention. Neurology consulted 12/22: Transfer to ICU, GI and neurology consulted. 12/23: Patient will be transferred back to the floor from ICU. Her liver enzymes and creatinine are trending down. Will be started on gabapentin per neurology recommendations and antibiotics discontinued. 12/24: Continue supportive care. CPK slowly improving. Vascular plans for closure of fasciotomy early next week. PT OT evaluation and treatment closure done. Continue wound management. No evidence of withdrawal noted at this time. Continue to monitor LFTs which are also slightly improving. Plan discussed in detail with the patient who verbalized understanding 12/25: Patient seen and examined clinically stable continues to show some improvem ent. Closure of fasciotomy planned for tomorrow. Renal function is improving. CK ordered and pending 12/26: Patient seen and examined, wbc mildly elevated likely secondary to steroids, will change to po for two additional days and stop, benefit probably already achieved, continue wound dressing, sensory function improved, awaiting wound vac and closure. Patient advised on clinically progress. 12/27: Patient seen and examined awaiting her vascular surgery for closure of fasciotomy. CK is decreasing less than 9000 today. We will continue aggressive IV fluids until we have the resolution below 5000. LFTs on the downward trend also. Leukocytosis appears to have peaked steroids was changed to oral for 2 additional days today is 1 of 2.. Plan of care discussed in detail with the patient who verbalized understanding. 12/28: Left lower extremity compartment syndrome status post fasciotomies. Cause is still unclear and may represent some allergic reaction. Motor function is unchanged from original exam. Sensory function has improved with full sensation of the foot.vascular surgery to place wound vacs on the leg today. CK improved to the 8000 range today 12/29: Patient underwent excisional debridement of muscle and soft tissue from left leg wound yesterday. Patient also had wound VAC placement left leg fasciotomy incisions. The patient had moderate amount of superficial necrotic muscle in the anterior lateral compartments with minimal amount of superficial necrotic muscle in the posterior compartment. Follow-up culture results. CK levels have improved to 6900 range. AST/ALT continue to trend downward. 12/30: I discussed the case with Dr. Lopez who recommends home wound VAC as well as physical therapy. I also discussed these needs with case management who was attempting to arrange for discharge planning. CK continues to improve with levels in the 4000 range. 12/31: Still awaiting for home wound VAC arrangements to be made. Leukocytosis is much improved down to 13,900 today. LFTs continue to trend down to normal range. CK levels still in the 4000 range. Nephrology has signed off. Anticipate discharge later today or in a.m. 01/01: Still awaiting for home wound VAC arrangements to be made. Laboratories continue to include including LFTs, CK and leukocytosis. 01/02: Still awaiting for home wound VAC arrangements to be made. 01/03: Patient had an episode of syncope while working with PT today. Nurse reports patient lost consciousness for a few seconds and was helped back to the bed. Patient's blood pressure was noted to be hypotensive/orthostatic. We will bolus 500 normal saline IV fluid and monitor orthostatics. Case management reports that wound VAC should be delivered today. LFTs continue to trend down to normal range. CK levels still in the 2000 range. Nephrology has signed off. Anticipate discharge in a.m. given the syncope and once wound VAC arranged. Patient with low-grade temp. We will monitor. 01/04; patient is anxious to go home, wound VAC is delivered to the bedside, continue wound care Multiple social issues, DC planning per case management, left lower extremity Doppler negative for DVT 01/05; discharge planning, multiple social issues 01/06; continue current management, wound VAC in place, DC planning issues 01/07; discharge planning per case management, setting up wound VAC, setting up outpatient wound care Setting up follow-up visits with physicians, patient has multiple social issues and no payer source Continue current management discharge when medically stable 01/08; patient's LFTs are trending down, continue current management Wound VAC care, wound VAC change per instructions, wound care as indicated Discharge planning per case management 01/09; patient is medically stable for discharge Awaiting discharge planning coordinating with wound VAC and wound care Post discharge follow-up visit with vascular Dr. Lenard Kimble on 01/28/2020 at 10 AM 01/10; vascular /IR Dr. Swann evaluation and recommendations noted and appreciated Patient's wound had some peculiar infection smell, started on doxycycline And recommended aggressive wound care. 01/11; iron system development manager talk to Dr. Swann regarding the treatment and discharge planning Dr. Swann informed that wound care should follow regularly and aggressively manage the wounds And once the wounds show significant healing wound VAC can be placed and patient may be discharged home with home health. Outpatient wound clinic 3 times a week and follow-up with vascular IR per schedule Patient is not ready for discharge at this point. Plan of care reviewed in detail with the patient and her nurse Disposition; continue aggressive wound care, once infection is well controlled wound VAC can be applied and patient will be discharged in a stable condition History Interval history: Patient's leg is slightly swollen, wound VAC is removed Some smell from the infected wound. Vascular recommended 1 week of doxycycline Wound care consulted Wound care evaluated the patient today, patient had extensive wound healing. Vascular Dr. Swann recommended wound treatment per wound care personal And once the infection is controlled, patient will receive wound VAC and then will be discharged with home health Dr. Swann stated that the patient is not stable for discharge at this point. Patient is upset and was anxious to go home I explained to the patient the above-mentioned treatment plan in detail. Vital signs reviewed Hospitalist Physical - Constitutional Vitals: Temp Pulse Resp BP Pulse Ox 98.8 F 117 H 18 118/59 96 01/11/22 16:31 01/11/22 16:31 01/11/22 16:31 01/11/22 16:31 01/11/22 16:31 General appearance: Present: mild distress, well-nourished, obese - EENT Eyes: Present: PERRL, EOM intact ENT: clear oral mucosa - Neck Neck: Present: supple, normal ROM - Respiratory Respiratory effort: normal Respiratory: bilateral: diminished, rhonchi, negative: rales, wheezing - Cardiovascular Rhythm: regular Heart Sounds: Present: S1 & S2 - Extremities Extremities: no ischemia, No edema, abnormal (Left lower extremity, dressing in place, elevated) - Abdominal General gastrointestinal: soft, non-tender, non-distended, normal bowel sounds - Integumentary Integumentary: Present: clear, warm - Psychiatric Psychiatric: appropriate mood/affect, cooperative - Neurologic Neurologic: CNII-XII intact, moves all extremities Results - Labs CBC & Chem 7: 01/10/22 19:01 01/08/22 05:22 Labs: Laboratory Last Values WBC 9.4 K/mm3 (4.5-11.0) 01/10/22 19:01 RBC 3.41 M/mm3 (3.65-5.03) L 01/10/22 19:01 Hgb 11.3 gm/dl (11.8-15.2) L 01/10/22 19:01 Hct 33.3 % (35.5-45.6) L 01/10/22 19:01 MCV 98 fl (84-94) H 01/10/22 19:01 MCH 33 pg (28-32) H 01/10/22 19:01 MCHC 34 % (32-34) 01/10/22 19:01 RDW 13.3 % (13.2-15.2) 01/10/22 19:01 Plt Count 450 K/mm3 (140-440) H 01/10/22 19:01 Lymph % (Auto) 12.9 % (13.4-35.0) L 01/04/22 05:01 [place] % (Auto) 6.9 % (0.0-7.3) 01/04/22 05:01 Eos % (Auto) 0.4 % (0.0-4.3) 01/04/22 05:01 Baso % (Auto) 0.3 % (0.0-1.8) 01/04/22 05:01 Lymph # (Auto) 1.4 K/mm3 (1.2-5.4) 01/04/22 05:01 [place] # (Auto) 0.7 K/mm3 (0.0-0.8) 01/04/22 05:01 Eos # (Auto) 0.0 K/mm3 (0.0-0.4) 01/04/22 05:01 Baso # (Auto) 0.0 K/mm3 (0.0-0.1) 01/04/22 05:01 Add Manual Diff Complete 12/30/21 04:49 Total Counted 100 12/30/21 04:49 Seg Neutrophils % 79.5 % (40.0-70.0) H 01/04/22 05:01 Seg Neuts % (Manual) 83.0 % (40.0-70.0) H 12/30/21 04:49 Band Neutrophils % 2.0 % 12/30/21 04:49 Lymphocytes % (Manual) 5.0 % (13.4-35.0) L 12/30/21 04:49 Reactive Lymphs % (Man) 0 % 12/30/21 04:49 Monocytes % (Manual) 8.0 % (0.0-7.3) H 12/30/21 04:49 Eosinophils % (Manual) 0 % (0.0-4.3) 12/30/21 04:49 Basophils % (Manual) 0 % (0.0-1.8) 12/30/21 04:49 Metamyelocytes % 2.0 % 12/30/21 04:49 Myelocytes % 0 % 12/30/21 04:49 Promyelocytes % 0 % 12/30/21 04:49 Blast Cells % 0 % 12/30/21 04:49 Nucleated RBC % Not Reportable 12/30/21 04:49 Seg Neutrophils # 8.4 K/mm3 (1.8-7.7) H 01/04/22 05:01 Seg Neutrophils # Man 17.1 K/mm3 (1.8-7.7) H 12/30/21 04:49 Band Neutrophils # 0.4 K/mm3 12/30/21 04:49 Lymphocytes # (Manual) 1.0 K/mm3 (1.2-5.4) L 12/30/21 04:49 Abs React Lymphs (Man) 0.0 K/mm3 12/30/21 04:49 Monocytes # (Manual) 1.6 K/mm3 (0.0-0.8) H 12/30/21 04:49 Eosinophils # (Manual) 0.0 K/mm3 (0.0-0.4) 12/30/21 04:49 Basophils # (Manual) 0.0 K/mm3 (0.0-0.1) 12/30/21 04:49 Metamyelocytes # 0.4 K/mm3 12/30/21 04:49 Myelocytes # 0.0 K/mm3 12/30/21 04:49 Promyelocytes # 0.0 K/mm3 12/30/21 04:49 Blast Cells # 0.0 K/mm3 12/30/21 04:49 WBC Morphology Not Reportable 12/30/21 04:49 Hypersegmented Neuts Not Reportable 12/30/21 04:49 Hyposegmented Neuts Rare 12/30/21 04:49 Hypogranular Neuts Not Reportable 12/30/21 04:49 Smudge Cells Not Reportable 12/30/21 04:49 Toxic Granulation Not Reportable 12/30/21 04:49 Toxic Vacuolation Not Reportable 12/30/21 04:49 Dohle Bodies Not Reportable 12/30/21 04:49 Pelger-Huet Anomaly Not Reportable 12/30/21 04:49 [place] Rods Not Reportable 12/30/21 04:49 Platelet Estimate Consistent w auto 12/30/21 04:49 Clumped Platelets Not Reportable 12/30/21 04:49 Plt Clumps, EDTA Not Reportable 12/30/21 04:49 Large Platelets Rare 12/30/21 04:49 Giant Platelets Not Reportable 12/30/21 04:49 Platelet Satelliting Not Reportable 12/30/21 04:49 Plt Morphology Comment Not Reportable 12/30/21 04:49 RBC Morphology Not Reportable 12/30/21 04:49 Dimorphic RBCs Not Reportable 12/30/21 04:49 Polychromasia Not Reportable 12/30/21 04:49 Hypochromasia Not Reportable 12/30/21 04:49 Poikilocytosis Not Reportable 12/30/21 04:49 Anisocytosis Rare 12/30/21 04:49 Microcytosis Not Reportable 12/30/21 04:49 Macrocytosis Rare 12/30/21 04:49 Spherocytes Not Reportable 12/30/21 04:49 Pappenheimer Bodies Not Reportable 12/30/21 04:49 Sickle Cells Not Reportable 12/30/21 04:49 Target Cells Not Reportable 12/30/21 04:49 Tear Drop Cells Not Reportable 12/30/21 04:49 Ovalocytes Not Reportable 12/30/21 04:49 Helmet Cells Not Reportable 12/30/21 04:49 Parsons-Dunlo Bodies Not Reportable 12/30/21 04:49 [place] Rings Not Reportable 12/30/21 04:49 Sebastien Cells Not Reportable 12/30/21 04:49 Bite Cells Not Reportable 12/30/21 04:49 Crenated Cell Not Reportable 12/30/21 04:49 Elliptocytes Not Reportable 12/30/21 04:49 Acanthocytes (Spur) Not Reportable 12/30/21 04:49 Rouleaux Not Reportable 12/30/21 04:49 Hemoglobin C Crystals Not Reportable 12/30/21 04:49 Schistocytes Not Reportable 12/30/21 04:49 Malaria parasites Not Reportable 12/30/21 04:49 [place] Bodies Not Reportable 12/30/21 04:49 Hem Pathologist Commnt No 12/30/21 04:49 PT 13.4 Sec. (12.2-14.9) 12/21/21 13:30 INR 0.92 (0.87-1.13) 12/21/21 13:30 APTT 25.8 Sec. (24.2-36.6) 12/21/21 13:30 Sodium 136 mmol/L (137-145) L 01/08/22 05:22 Potassium 3.8 mmol/L (3.6-5.0) 01/08/22 05:22 Chloride 101.0 mmol/L (98-107) 01/08/22 05:22 Carbon Dioxide 29 mmol/L (22-30) 01/08/22 05:22 Anion Gap 10 mmol/L 01/08/22 05:22 BUN 5 mg/dL (9-20) L 01/08/22 05:22 Creatinine 0.7 mg/dL (0.8-1.3) L 01/08/22 05:22 Estimated GFR > 60 ml/min 01/08/22 05:22 BUN/Creatinine Ratio 7 % 01/08/22 05:22 Glucose 103 mg/dL (75-100) H 01/08/22 05:22 Lactic Acid 1.40 mmol/L (0.7-2.0) 12/21/21 13:30 Calcium 8.9 mg/dL (8.4-10.2) 01/08/22 05:22 Phosphorus 2.80 mg/dL (2.5-4.5) 12/24/21 05:17 Magnesium 2.20 mg/dL (1.7-2.3) 12/24/21 05:17 Total Bilirubin 0.50 mg/dL (0.1-1.2) 01/08/22 05:22 Direct Bilirubin < 0.2 mg/dL (0-0.2) 01/03/22 04:00 Indirect Bilirubin 0.3 mg/dL 01/03/22 04:00 AST 42 units/L (5-40) H 01/08/22 05:22 ALT 108 units/L (7-56) H 01/08/22 05:22 Alkaline Phosphatase 77 units/L (35-129) 01/08/22 05:22 Ammonia 37.0 umol/L (25-60) 12/23/21 04:49 Total Creatine Kinase 1001 units/L (55-170) H 01/06/22 08:55 Total Protein 6.2 g/dL (6.3-8.2) L 01/08/22 05:22 Albumin 3.1 g/dL (3.9-5) L 01/08/22 05:22 Albumin/Globulin Ratio 1.0 % 01/08/22 05:22 Amylase 25 units/L (27-131) L 12/23/21 04:49 Lipase 10 units/L (13-60) L 12/23/21 04:49 Coronavirus (PCR) Negative (Negative) 12/22/21 11:40 Hepatitis A IgM Ab Nonreactive (NonReactive) 12/21/21 13:30 Hep Bs Antigen Non-reactive (Negative) 12/21/21 13:30 Hep B Core IgM Ab Non-reactive (NonReactive) 12/21/21 13:30 Hepatitis C Antibody Non-reactive (NonReactive) 12/21/21 13:30 HIV 1&2 Antibody Rapid Non react (Non React) 12/22/21 16:42 HIV P24 Antigen Non react (Non React) 12/22/21 16:42 Kaur/IV: Voiding Method Urinal Active Medications - Current Medications Current Medications: Generic Name Dose Route Start Last Admin Trade Name Freq PRN Reason Stop Dose Admin Acetaminophen 650 mg 01/04/22 22:14 01/05/22 00:08 Acetaminophen 325 Mg Tab PO 650 mg Q6H PRN Administration Pain, Mild (1-3) Albuterol 2.5 mg 12/21/21 06:15 Albuterol 2.5 Mg/3 Ml Nebu IH Q3HRT PRN Shortness Of Breath Diphenhydramine HCl 25 mg 12/21/21 06:24 01/10/22 18:40 Diphenhydramine 50 Mg/Ml Vial IV 25 mg Q6H PRN Administration Skin Irritation Docusate Sodium 100 mg 12/23/21 22:00 01/11/22 09:16 Docusate Sodium 100 Mg Cap PO 100 mg BID VLADIMIR Administration Famotidine 20 mg 12/26/21 10:00 01/11/22 09:16 Famotidine 20 Mg Tab PO 20 mg BID VLADIMIR Administration Gabapentin 300 mg 01/05/22 08:00 01/11/22 15:41 Gabapentin 300 Mg Cap PO 300 mg TID@0800,1600,2200 VLADIMIR Administration Heparin Sodium (Porcine) 5,000 unit 12/21/21 10:00 01/11/22 09:16 Heparin 5,000 Unit/1 Ml Vial SUB-Q 5,000 unit Q12HR VLADIMIR Administration Hydralazine HCl 10 mg 12/22/21 18:31 12/22/21 18:50 Hydralazine 20 Mg/1 Ml Inj IV 10 mg Q3HR PRN Administration Hypertension Hydromorphone HCl 0.5 mg 12/21/21 06:15 01/11/22 12:30 Hydromorphone 1 Mg/1 Ml Inj IV 0.5 mg Q3H PRN Administration Pain , Severe (7-10) Doxycycline Hyclate 100 mg/ 250 mls @ 250 mls/hr 01/10/22 18:00 01/11/22 17:09 Sodium Chloride IV 01/17/22 06:59 250 mls/hr Q12H VLADIMIR Administration Protocol Ondansetron HCl 4 mg 12/21/21 06:15 01/03/22 10:38 Ondansetron 4 Mg/2 Ml Inj IV 4 mg Q8H PRN Administration Nausea And Vomiting Oxycodone/Acetaminophen 1 tab 01/07/22 10:57 01/11/22 13:42 Oxycodone /Acetaminophen 5-325mg Tab PO 1 tab Q6H PRN Administration Pain, Moderate (4-6) Sodium Chloride 10 ml 12/21/21 10:00 01/11/22 09:17 Sodium Chloride 0.9% 10 Ml Flush Syringe IV 10 ml BID VLADIMIR Administration Sodium Chloride 10 ml 12/21/21 06:15 01/11/22 07:19 Sodium Chloride 0.9% 10 Ml Flush Syringe IV 10 ml PRN PRN Administration LINE FLUSH Sodium Chloride 500 ml 01/10/22 19:10 01/10/22 19:32 Sodium Chloride 0.9% Irr 500 Ml Bottle IR 500 ml DIRECT PRN Administration Wound Care Sodium Hypochlorite 1 applic 01/11/22 13:00 01/11/22 13:48 Sodium Hypochlorite, Dakin's Full Strength (0.5%) 473 Ml Topical Soln TP Not Given DAILY VLADIMIR Valsartan 160 mg 12/22/21 22:00 01/11/22 09:16 Valsartan 160mg Tab PO 160 mg DAILY VLADIMIR Administration Nutrition/Malnutrition Assess - Dietary Evaluation Nutrition/Malnutrition Findings: Nutrition Notes Start: 12/28/21 16:45 Freq: Status: Active Protocol: Document 01/06/22 14:21 OPAL (Rec: 01/06/22 14:46 OPAL [id number]) Nutrition Notes Initial or Follow up Reassessment Current Diagnosis Hypertension Other Pertinent Diagnosis Rabdomyolysis, Liver Failure, s/p L-LE 4 Compartment Fasciotomy w/Debridem. Current Diet Regular Diet + Dietary Supplements. (since B 12/29). Labs/Tests 01/06: BUN 5, Crea 0.7. Pertinent Medications 01/06: Nutritionally unremarkable. Height 5 ft 6 in Weight 86.183 kg [place] Body Weight (kg) 64.54 BMI 30.7 Weight change and time frame No body weight change reporterd in 9 days. Weight Status Obese Subjective/Other Information RD consult for routine F/U on dietary advancement. Pt's PO intake of meals has been Good (100%), according to ADL notes. Pt is on Room Air, O2 saturation @ 96%, according to Physical Assessment History notes. Pt presents L-LE Pitting Edema 2+, according to Physical Assessment History notes. Pt presents L-LE Vascular Wound with WoundVAC since , according to Physical Assessment History notes. Event on 01/03, Pt suffered a syncope during PT session, according to Progress notes. Pt is clearedd for discharge, it is pending due to several social issues, according to Progress notes. Percent of energy/protein needs met: Prescribed Regular Diet provides for energy/protein needs (2,289 Kcal/89 g) during LOS Burn Absent Trauma Absent GI Symptoms None Food Allergy No Skin Integrity/Comment L-LE Vascular Wound Current % PO Good (75-100%) Minimum of two criteria No #1 Nutrition Diagnosis Increased nutrient needs ( specify in comment below) Comments: Protein to support wound healing processes. Diagnosis Progress(for reassessment Continues documentation) Is patient on ventilator? No Is Patient Ambulatory and/or Out of Bed No REE-([facility]-confined to bed) 2083.920 Kcal/Kg value to use for calculation 19 Approximate Energy Requirements Using 1637 kcal/Kg Calculation Used for Recommendations Kcal/kg Additional Notes Protein: 1.25-1.5 g/Kg AdjBW; 85-114 g/day. Fluids: 1 ml/Kcal, or as per MD. Nutrition Intervention Change Diet Order: Continue Regular Diet. Add Supplement/Snack (indicate name/kcal Continue 28.8 g pkt Calvin; BID /protein ) . Provides kCal: 190 Provides Protein (gm) 5 Goal #1 Support, through dietary supplementation, wound healing processes during LOS. Goal #2 Adjust the dietary intervention to better serve Pt's needs and clinical conditions during LOS. Goal #3 Maintain body weight within +/ -3% of admission body weight during LOS. Revisit per MD consult or patient Sign Off request: Additional Comments Continue monitoring food tolerance, %PO intake of meals , and BM.
[2022-01-12] MEDS: HYDROmorphone 1 MG/1 ML INJ IV PRN ×3 (01:32→15:36)
[2022-01-12] MEDS: ACETAMINOPHEN 325 MG TAB PO PRN (01:36)
[2022-01-12] MEDS: oxyCODONE /ACETAMINOPHEN 5-325MG TAB PO PRN ×2 (05:52→23:46)
[2022-01-12] MEDS: DOXYCYCLINE HYCLATE 100 MG in SODIUM CHLORIDE 0.9% 250ML 250 ML IV SCH ×2 (05:52→17:30)
[2022-01-12 06:23] LABS: Basophils % (Auto) 0.4 % (0.0-1.8); Eosinophils % (Auto) 0.4 % (0.0-4.3); Hematocrit 32.5 % (35.5-45.6); Hemoglobin 10.7 gm/dl (11.8-15.2); Lymphocytes # (Auto) 2.2 K/mm3 (1.2-5.4); Lymphocytes % (Auto) 27.8 % (13.4-35.0); Mean Corpuscular HGB Conc 33 % (32-34); Mean Corpuscular Volume 98 fl (84-94); Monocytes # (Auto) 0.7 K/mm3 (0.0-0.8); Monocytes % (Auto) 8.8 % (0.0-7.3); Platelet Count 425 K/mm3 (140-440); Red Blood Count 3.31 M/mm3 (3.65-5.03); Red Cell Distribution Width 13.3 % (13.2-15.2)
[2022-01-12 06:44] LABS: Alanine Aminotransferase 55 units/L (7-56); Albumin 2.9 g/dL (3.9-5); Blood Urea Nitrogen 9 mg/dL (9-20); Hemolysis Index 6
[2022-01-12 06:46] LABS: BUN/Creatinine Ratio 15
[2022-01-12] MEDS: GABAPENTIN 300 MG CAP PO SCH ×3 (09:57→22:29)
[2022-01-12] MEDS: FAMOTIDINE 20 MG TAB PO SCH ×2 (09:57→22:29)
[2022-01-12] MEDS: HEPARIN 5,000 UNIT/1 ML VIAL SUB-Q SCH ×2 (09:58→22:29)
[2022-01-12] MEDS: DOCUSATE SODIUM 100 MG CAP PO SCH ×2 (09:58→22:29)
[2022-01-12] MEDS: SODIUM HYPOCHLORITE, DAKIN'S FULL STRENGTH (0.5%) 473 ML TOPICAL SOLN TP SCH (09:59)
[2022-01-12] MEDS: VALSARTAN 160MG TAB PO SCH ×2 (10:00→10:06)
--- NOTE | 2022-01-12 18:22 | Progress Note ---
Assessment and Plan This is a 36 year old transgendered female undergoing gender transformation with silicone injection to buttocks ([place] 2016) and breast implants, heavy drinker on the weekends (bottle of vodka) who presented to [facility] on 12/21 because of adverse drug reaction after reportedly self administration of rocephin and PCN for sore throat. Patient reportedly collapsed while checking in to the emergency department, has complains of severe 10 out of 10 pain in left thigh and has noticeable mottling of skin in thigh and left lower abdomen. Patient underwent a CT of the left leg which showed possible cellulitis with no drainable fluid collection and was started on empiric antibiotics. Patient admitted to the hospital service with diagnosis of acute liver failure, rhabdomyolysis, s/p 4 compartment fasciotomy to left lower extremity. Patient received antibiotics, wound care, wound VAC treatment and was planning to be discharged However developed a wound infection, wound VAC was removed, medical personnel aggressively treating the patient. Discharge was held Hospital course to date: 12/21: Venous ultrasound shows no DVT, Vascular surgery consulted who performed a fasciotomy and plan to transfer patient to [facility] post intervention. Neurology consulted 12/22: Transfer to ICU, GI and neurology consulted. 12/23: Patient will be transferred back to the floor from ICU. Her liver enzymes and creatinine are trending down. Will be started on gabapentin per neurology recommendations and antibiotics discontinued. 12/24: Continue supportive care. CPK slowly improving. Vascular plans for closure of fasciotomy early next week. PT OT evaluation and treatment closure done. Continue wound management. No evidence of withdrawal noted at this time. Continue to monitor LFTs which are also slightly improving. Plan discussed in detail with the patient who verbalized understanding 12/25: Patient seen and examined clinically stable continues to show some improvement. Closure of fasciotomy planned for tomorrow. Renal function is improving. CK ordered and pending 12/26: Patient seen and examined, wbc mildly elevated likely secondary to steroids, will change to po for two additional days and stop, benefit probably already achieved, continue wound dressing, sensory function improved, awaiting wound vac and closure. Patient advised on clinically progress. 12/27: Patient seen and examined awaiting her vascular surgery for closure of fasciotomy. CK is decreasing less than 9000 today. We will continue aggressive IV fluids until we have the resolution below 5000. LFTs on the downward trend also. Leukocytosis appears to have peaked steroids was changed to oral for 2 additional days today is 1 of 2.. Plan of care discussed in detail with the patient who verbalized understanding. 12/28: Left lower extremity compartment syndrome status post fasciotomies. Cause is still unclear and may represent some allergic reaction. Motor function is unchanged from original exam. Sensory function has improved with full sensation of the foot.vascular surgery to place wound vacs on the leg today. CK improved to the 8000 range today 12/29: Patient underwent excisional debridement of muscle and soft tissue from left leg wound yesterday. Patient also had wound VAC placement left leg fasciotomy incisions. The patient had moderate amount of superficial necrotic muscle in the anterior lateral compartments with minimal amount of superficial necrotic muscle in the posterior compartment. Follow-up culture results. CK levels have improved to 6900 range. AST/ALT continue to trend downward. 12/30: I discussed the case with Dr. Lopez who recommends home wound VAC as well as physical therapy. I also discussed these needs with case management who was attempting to arrange for discharge planning. CK continues to improve with levels in the 4000 range. 12/31: Still awaiting for home wound VAC arrangements to be made. Leukocytosis is much improved down to 13,900 today. LFTs continue to trend down to normal range. CK levels still in the 4000 range. Nephrology has signed off. Anticipate discharge later today or in a.m. 01/01: Still awaiting for home wound VAC arrangements to be made. Laboratories continue to include including LFTs, CK and leukocytosis. 01/02: Still awaiting for home wound VAC arrangements to be made. 01/03: Patient had an episode of syncope while working with PT today. Nurse reports patient lost consciousness for a few seconds and was helped back to the bed. Patient's blood pressure was noted to be hypotensive/orthostatic. We will bolus 500 normal saline IV fluid and monitor orthostatics. Case management reports that wound VAC should be delivered today. LFTs continue to trend down to normal range. CK levels still in the 2000 range. Nephrology has signed off. Anticipate discharge in a.m. given the syncope and once wound VAC arranged. Patient with low-grade temp. We will monitor. 01/04; patient is anxious to go home, wound VAC is delivered to the bedside, continue wound care Multiple social issues, DC planning per case management, left lower extremity Doppler negative for DVT 01/05; discharge planning, multiple social issues 01/06; continue current management, wound VAC in place, DC planning issues 01/07; discharge planning per case management, setting up wound VAC, setting up outpatient wound care Setting up follow-up visits with physicians, patient has multiple social issues and no payer source Continue current management discharge when medically stable 01/08; patient's LFTs are trending down, continue current management Wound VAC care, wound VAC change per instructions, wound care as indicated Discharge planning per case management 01/09; patient is medically stable for discharge Awaiting discharge planning coordinating with wound VAC and wound care Post discharge follow-up visit with vascular Dr. Lenard Kimble on 01/28/2020 at 10 AM 01/10; vascular /IR Dr. Swann evaluation and recommendations noted and appreciated Patient's wound had some peculiar infection smell, started on doxycycline And recommended aggressive wound care. 01/11; iron business records manager talk to Dr. Swann regarding the treatment and discharge planning Dr. Swann informed that wound care should follow regularly and aggressively manage the wounds And once the wounds show significant healing wound VAC can be placed and patient may be discharged home with home health. Outpatient wound clinic 3 times a week and follow-up with vascular IR per schedule 01/12: Continue dressing change per wound care. Patient initiated on doxycycline, surgical culture is growing bacillus. Discharge planning per vascular recommendation once wound VAC is placed. Continue supportive care. Assessment and plan; --Compartment syndrome to LLE -Vascular surgery consulted, appreciate recommendations -s/p self admin of IM abx to [facility] -c/o pain, decreased sensation, pulses were dopplarable, paralysis, mottled skin -s/p 4 compartment tracheotomy on 12/21 with vascular surgery -Bilateral lower extremity Doppler ultrasound showed no DVT -Left lower extremity CT with contrast showed appearance of posterior soft tissue complex cellulitis with small subcutaneous lymph nodes, no drainable fluid collections present, contusion could have similar appearance -Bilateral lower extremity arterial duplex showed no significant lower extremity peripheral artery disease -Normal ABIs Patient received wound VAC, with aggressive management and frequent changing. And with supportive care Patient was being prepared to discharge with home health and outpatient wound care 3 times a week. However patient's wound got significantly infected, wound VAC was removed, wound care personal consulted and they are aggressively treating the wounds. Once the wound infection improves, patient may receive wound VAC and then patient may be discharged home with follow-up visit with Dr. Lenard Kimble Outpatient wound care 3 times a week --Peripheral neuropathy Continue gabapentin Neurology evaluated --HTN Moderate control, continue current antihypertensives As needed medications --Rhabdomyolysis; Improved from 95,000 CK -1001 week ago Closely monitor IV hydration --acute kidney injury with vasomotor nephropathy now resolved Monitor renal function Avoid nephrotoxin. gentle hydration as needed Patient is not ready for discharge at this point. Plan of care reviewed in detail with the patient and her nurse Disposition; continue aggressive wound care, once infection is well controlled wound VAC can be applied and patient will be discharged in a stable condition Subjective Date of service: 01/12/22 Principal diagnosis: abnormal liver enzymes Interval history: Patient seen and examined. Medical records and medication list reviewed. No acute event overnight noted by the RN. Patient denies any chest pain or difficulty breathing. Patient is tolerating diet. Discussed plan of care at bedside with patient.Waiting on dressing change Objective - Exam Narrative Exam: General appearance: Present: mild distress, well-nourished, obese - EENT Eyes: Present: PERRL, EOM intact ENT: clear oral mucosa - Neck Neck: Present: supple, normal ROM - Respiratory Respiratory effort: normal Respiratory: bilateral: diminished, rhonchi, negative: rales, wheezing - Cardiovascular Rhythm: regular Heart Sounds: Present: S1 & S2 - Extremities Extremities: no ischemia, No edema, abnormal (Left lower extremity, dressing in place, elevated) - Abdominal General gastrointestinal: soft, non-tender, non-distended, normal bowel sounds - Integumentary Integumentary: Present: clear, warm - Psychiatric Psychiatric: appropriate mood/affect, cooperative - Neurologic Neurologic: CNII-XII intact, moves all extremities - Constitutional Vitals: Vital Signs - 12hr 01/12/22 01/12/22 01/12/22 10:00 12:20 15:36 Respiratory 18 20 Rate O2 Sat by Pulse 98 Oximetry - Labs CBC & Chem 7: 01/12/22 06:06 01/12/22 06:06 Labs: Abnormal lab results 01/12/22 01/12/22 Range/Units 06:06 06:06 RBC 3.31 L (3.65-5.03) M/mm3 Hgb 10.7 L (11.8-15.2) gm/dl Hct 32.5 L (35.5-45.6) % MCV 98 H (84-94) fl MCH 33 H (28-32) pg [place] % (Auto) 8.8 H (0.0-7.3) % Sodium 134 L (137-145) mmol/L Chloride 97.0 L (98-107) mmol/L Creatinine 0.6 L (0.8-1.3) mg/dL Glucose 109 H (75-100) mg/dL Albumin 2.9 L (3.9-5) g/dL
[2022-01-12] MEDS: ONDANSETRON 4 MG/2 ML INJ IV PRN (22:29)
[2022-01-13] MEDS: DOXYCYCLINE HYCLATE 100 MG in SODIUM CHLORIDE 0.9% 250ML 250 ML IV SCH ×2 (05:44→17:14)
[2022-01-13] MEDS: oxyCODONE /ACETAMINOPHEN 5-325MG TAB PO PRN ×2 (06:00→21:08)
[2022-01-13] MEDS: VALSARTAN 160MG TAB PO SCH (09:22)
[2022-01-13] MEDS: DOCUSATE SODIUM 100 MG CAP PO SCH ×2 (09:22→21:04)
[2022-01-13] MEDS: GABAPENTIN 300 MG CAP PO SCH ×3 (09:22→21:04)
[2022-01-13] MEDS: FAMOTIDINE 20 MG TAB PO SCH ×2 (09:22→21:05)
[2022-01-13] MEDS: HEPARIN 5,000 UNIT/1 ML VIAL SUB-Q SCH ×2 (09:23→21:05)
[2022-01-13] MEDS: SODIUM HYPOCHLORITE, DAKIN'S FULL STRENGTH (0.5%) 473 ML TOPICAL SOLN TP SCH (09:24)
--- NOTE | 2022-01-13 12:56 | Progress Note ---
Assessment and Plan This is a 36 year old transgendered female undergoing gender transformation with silicone injection to buttocks ([place] 2016) and breast implants, heavy drinker on the weekends (bottle of vodka) who presented to [facility] on 12/21 because of adverse drug reaction after reportedly self administration of rocephin and PCN for sore throat. Patient reportedly collapsed while checking in to the emergency department, has complains of severe 10 out of 10 pain in left thigh and has noticeable mottling of skin in thigh and left lower abdomen. Patient underwent a CT of the left leg which showed possible cellulitis with no drainable fluid collection and was started on empiric antibiotics. Patient admitted to the hospital service with diagnosis of acute liver failure, rhabdomyolysis, s/p 4 compartment fasciotomy to left lower extremity. Patient received antibiotics, wound care, wound VAC treatment and was planning to be discharged However developed a wound infection, wound VAC was removed, medical personnel aggressively treating the patient. Discharge was held Hospital course to date: 12/21: Venous ultrasound shows no DVT, Vascular surgery consulted who performed a fasciotomy and plan to transfer patient to [facility] post intervention. Neurology consulted 12/22: Transfer to ICU, GI and neurology consulted. 12/23: Patient will be transferred back to the floor from ICU. Her liver enzymes and creatinine are trending down. Will be started on gabapentin per neurology recommendations and antibiotics discontinued. 12/24: Continue supportive care. CPK slowly improving. Vascular plans for closure of fasciotomy early next week. PT OT evaluation and treatment closure done. Continue wound management. No evidence of withdrawal noted at this time. Continue to monitor LFTs which are also slightly improving. Plan discussed in detail with the patient who verbalized understanding 12/25: Patient seen and examined clinically stable continues to show some improvement. Closure of fasciotomy planned for tomorrow. Renal function is improving. CK ordered and pending 12/26: Patient seen and examined, wbc mildly elevated likely secondary to steroids, will change to po for two additional days and stop, benefit probably already achieved, continue wound dressing, sensory function improved, awaiting wound vac and closure. Patient advised on clinically progress. 12/27: Patient seen and examined awaiting her vascular surgery for closure of fasciotomy. CK is decreasing less than 9000 today. We will continue aggressive IV fluids until we have the resolution below 5000. LFTs on the downward trend also. Leukocytosis appears to have peaked steroids was changed to oral for 2 additional days today is 1 of 2.. Plan of care discussed in detail with the patient who verbalized understanding. 12/28: Left lower extremity compartment syndrome status post fasciotomies. Cause is still unclear and may represent some allergic reaction. Motor function is unchanged from original exam. Sensory function has improved with full sensation of the foot.vascular surgery to place wound vacs on the leg today. CK improved to the 8000 range today 12/29: Patient underwent excisional debridement of muscle and soft tissue from left leg wound yesterday. Patient also had wound VAC placement left leg fasciotomy incisions. The patient had moderate amount of superficial necrotic muscle in the anterior lateral compartments with minimal amount of superficial necrotic muscle in the posterior compartment. Follow-up culture results. CK levels have improved to 6900 range. AST/ALT continue to trend downward. 12/30: I discussed the case with Dr. Lopez who recommends home wound VAC as well as physical therapy. I also discussed these needs with case management who was attempting to arrange for discharge planning. CK continues to improve with levels in the 4000 range. 12/31: Still awaiting for home wound VAC arrangements to be made. Leukocytosis is much improved down to 13,900 today. LFTs continue to trend down to normal range. CK levels still in the 4000 range. Nephrology has signed off. Anticipate discharge later today or in a.m. 01/01: Still awaiting for home wound VAC arrangements to be made. Laboratories continue to include including LFTs, CK and leukocytosis. 01/02: Still awaiting for home wound VAC arrangements to be made. 01/03: Patient had an episode of syncope while working with PT today. Nurse reports patient lost consciousness for a few seconds and was helped back to the bed. Patient's blood pressure was noted to be hypotensive/orthostatic. We will bolus 500 normal saline IV fluid and monitor orthostatics. Case management reports that wound VAC should be delivered today. LFTs continue to trend down to normal range. CK levels still in the 2000 range. Nephrology has signed off. Anticipate discharge in a.m. given the syncope and once wound VAC arranged. Patient with low-grade temp. We will monitor. 01/04; patient is anxious to go home, wound VAC is delivered to the bedside, continue wound care Multiple social issues, DC planning per case management, left lower extremity Doppler negative for DVT 01/05; discharge planning, multiple social issues 01/06; continue current management, wound VAC in place, DC planning issues 01/07; discharge planning per case management, setting up wound VAC, setting up outpatient wound care Setting up follow-up visits with physicians, patient has multiple social issues and no payer source Continue current management discharge when medically stable 01/08; patient's LFTs are trending down, continue current management Wound VAC care, wound VAC change per instructions, wound care as indicated Discharge planning per case management 01/09; patient is medically stable for discharge Awaiting discharge planning coordinating with wound VAC and wound care Post discharge follow-up visit with vascular Dr. Lenard Kimble on 01/28/2020 at 10 AM 01/10; vascular /IR Dr. Swann evaluation and recommendations noted and appreciated Patient's wound had some peculiar infection smell, started on doxycycline And recommended aggressive wound care. 01/11; iron manager telemarketing talk to Dr. Swann regarding the treatment and discharge planning Dr. Swann informed that wound care should follow regularly and aggressively manage the wounds And once the wounds show significant healing wound VAC can be placed and patient may be discharged home with home health. Outpatient wound clinic 3 times a week and follow-up with vascular IR per schedule 01/12: Continue dressing change per wound care. Patient initiated on doxycycline, surgical culture is growing bacillus. Discharge planning per vascular recommendation once wound VAC is placed. Continue supportive care. 01/13: Continue regular wound care, continue empiric antibiotic, wait on culture sensitivity. Discharge planning per vascular surgery. Assessment and plan; --Compartment syndrome to LLE -Vascular surgery consulted, appreciate recommendations -s/p self admin of IM abx to [facility] -c/o pain, decreased sensation, pulses were dopplarable, paralysis, mottled skin -s/p 4 compartment tracheotomy on 12/21 with vascular surgery -Bilateral lower extremity Doppler ultrasound showed no DVT -Left lower extremity CT with contrast showed appearance of posterior soft t issue complex cellulitis with small subcutaneous lymph nodes, no drainable fluid collections present, contusion could have similar appearance -Bilateral lower extremity arterial duplex showed no significant lower extremity peripheral artery disease -Normal ABIs Patient received wound VAC, with aggressive management and frequent changing. And with supportive care Patient was being prepared to discharge with home health and outpatient wound care 3 times a week. However patient's wound got significantly infected, wound VAC was removed, wound care personal consulted and they are aggressively treating the wounds. Once the wound infection improves, patient may receive wound VAC and then patie nt may be discharged home with follow-up visit with Dr. Lenard Kimble Outpatient wound care 3 times a week --Peripheral neuropathy Continue gabapentin Neurology evaluated --HTN Moderate control, continue current antihypertensives As needed medications --Rhabdomyolysis; Improved from 95,000 CK -1001 week ago Closely monitor IV hydration --acute kidney injury with vasomotor nephropathy now resolved Monitor renal function Avoid nephrotoxin. gentle hydration as needed Patient is not ready for discharge at this point. Plan of care reviewed in detail with the patient and her nurse Disposition; continue aggressive wound care, once infection is well controlled wound VAC can be applied and patient will be discharged in a stable condition Subjective Date of service: 01/13/22 Principal diagnosis: abnormal liver enzymes Interval history: Patient seen and examined. Medical records and medication list reviewed. No acute event overnight noted by the RN. Patient denies any chest pain or difficulty breathing. Patient is tolerating diet. Discussed plan of care at bedside with patient. Objective - Exam Narrative Exam: General appearance: Present: mild distress, well-nourished, obese - EENT Eyes: Present: PERRL, EOM intact ENT: clear oral mucosa - Neck Neck: Present: supple, normal ROM - Respiratory Respiratory effort: normal Respiratory: bilateral: diminished, rhonchi, negative: rales, wheezing - Cardiovascular Rhythm: regular Heart Sounds: Present: S1 & S2 - Extremities Extremities: no ischemia, No edema, abnormal (Left lower extremity, dressing in place, elevated) - Abdominal General gastrointestinal: soft, non-tender, non-distended, normal bowel sounds - Integumentary Integumentary: Present: clear, warm - Psychiatric Psychiatric: appropriate mood/affect, cooperative - Neurologic Neurologic: CNII-XII intact, moves all extremities - Constitutional Vitals: Vital Signs - 12hr 01/13/22 01/13/22 01/13/22 06:00 08:38 09:22 Temperature Pulse Rate 94 H Respiratory 20 Rate Blood Pressure 100/58 O2 Sat by Pulse 98 Oximetry 01/13/22 11:01 Temperature 98.5 F Pulse Rate 91 H Respiratory 16 Rate Blood Pressure 104/59 O2 Sat by Pulse 98 Oximetry - Labs CBC & Chem 7: 01/12/22 06:06 01/12/22 06:06
[2022-01-13] MEDS: HYDROmorphone 1 MG/1 ML INJ IV PRN (13:38)
[2022-01-14 05:52] LABS: Hematocrit 32.4 % (35.5-45.6); Hemoglobin 10.7 gm/dl (11.8-15.2)
[2022-01-14 06:11] LABS: Blood Urea Nitrogen 8 mg/dL (9-20); Hemolysis Index 12
[2022-01-14 06:12] LABS: BUN/Creatinine Ratio 13
[2022-01-14] MEDS: DOXYCYCLINE HYCLATE 100 MG in SODIUM CHLORIDE 0.9% 250ML 250 ML IV SCH ×2 (06:19→18:23)
[2022-01-14] MEDS: oxyCODONE /ACETAMINOPHEN 5-325MG TAB PO PRN ×3 (06:42→23:55)
[2022-01-14] MEDS: FAMOTIDINE 20 MG TAB PO SCH ×2 (09:44→21:20)
[2022-01-14] MEDS: GABAPENTIN 300 MG CAP PO SCH ×3 (09:44→21:21)
[2022-01-14] MEDS: HEPARIN 5,000 UNIT/1 ML VIAL SUB-Q SCH ×2 (09:45→21:21)
[2022-01-14] MEDS: DOCUSATE SODIUM 100 MG CAP PO SCH ×2 (09:45→21:22)
[2022-01-14] MEDS: VALSARTAN 160MG TAB PO SCH (09:45)
--- NOTE | 2022-01-14 12:18 | Progress Note ---
Assessment and Plan This is a 36 year old transgendered female undergoing gender transformation with silicone injection to buttocks ([place] 2016) and breast implants, heavy drinker on the weekends (bottle of vodka) who presented to [facility] on 12/21 because of adverse drug reaction after reportedly self administration of rocephin and PCN for sore throat. Patient reportedly collapsed while checking in to the emergency department, has complains of severe 10 out of 10 pain in left thigh and has noticeable mottling of skin in thigh and left lower abdomen. Patient underwent a CT of the left leg which showed possible cellulitis with no drainable fluid collection and was started on empiric antibiotics. Patient admitted to the hospital service with diagnosis of acute liver failure, rhabdomyolysis, s/p 4 compartment fasciotomy to left lower extremity. Patient received antibiotics, wound care, wound VAC treatment and was planning to be discharged However developed a wound infection, wound VAC was removed, medical personnel aggressively treating the patient. Discharge was held Hospital course to date: 12/21: Venous ultrasound shows no DVT, Vascular surgery consulted who performed a fasciotomy and plan to transfer patient to [facility] post intervention. Neurology consulted 12/22: Transfer to ICU, GI and neurology consulted. 12/23: Patient will be transferred back to the floor from ICU. Her liver enzymes and creatinine are trending down. Will be started on gabapentin per neurology recommendations and antibiotics discontinued. 12/24: Continue supportive care. CPK slowly improving. Vascular plans for closure of fasciotomy early next week. PT OT evaluation and treatment closure done. Continue wound management. No evidence of withdrawal noted at this time. Continue to monitor LFTs which are also slightly improving. Plan discussed in detail with the patient who verbalized understanding 12/25: Patient seen and examined clinically stable continues to show some improvement. Closure of fasciotomy planned for tomorrow. Renal function is improving. CK ordered and pending 12/26: Patient seen and examined, wbc mildly elevated likely secondary to steroids, will change to po for two additional days and stop, benefit probably already achieved, continue wound dressing, sensory function improved, awaiting wound vac and closure. Patient advised on clinically progress. 12/27: Patient seen and examined awaiting her vascular surgery for closure of fasciotomy. CK is decreasing less than 9000 today. We will continue aggressive IV fluids until we have the resolution below 5000. LFTs on the downward trend also. Leukocytosis appears to have peaked steroids was changed to oral for 2 additional days today is 1 of 2.. Plan of care discussed in detail with the patient who verbalized understanding. 12/28: Left lower extremity compartment syndrome status post fasciotomies. Cause is still unclear and may represent some allergic reaction. Motor function is unchanged from original exam. Sensory function has improved with full sensation of the foot.vascular surgery to place wound vacs on the leg today. CK improved to the 8000 range today 12/29: Patient underwent excisional debridement of muscle and soft tissue from left leg wound yesterday. Patient also had wound VAC placement left leg fasciotomy incisions. The patient had moderate amount of superficial necrotic muscle in the anterior lateral compartments with minimal amount of superficial necrotic muscle in the posterior compartment. Follow-up culture results. CK levels have improved to 6900 range. AST/ALT continue to trend downward. 12/30: I discussed the case with Dr. Lopez who recommends home wound VAC as well as physical therapy. I also discussed these needs with case management who was attempting to arrange for discharge planning. CK continues to improve with levels in the 4000 range. 12/31: Still awaiting for home wound VAC arrangements to be made. Leukocytosis is much improved down to 13,900 today. LFTs continue to trend down to normal range. CK levels still in the 4000 range. Nephrology has signed off. Anticipate discharge later today or in a.m. 01/01: Still awaiting for home wound VAC arrangements to be made. Laboratories continue to include including LFTs, CK and leukocytosis. 01/02: Still awaiting for home wound VAC arrangements to be made. 01/03: Patient had an episode of syncope while working with PT today. Nurse reports patient lost consciousness for a few seconds and was helped back to the bed. Patient's blood pressure was noted to be hypotensive/orthostatic. We will bolus 500 normal saline IV fluid and monitor orthostatics. Case management reports that wound VAC should be delivered today. LFTs continue to trend down to normal range. CK levels still in the 2000 range. Nephrology has signed off. Anticipate discharge in a.m. given the syncope and once wound VAC arranged. Patient with low-grade temp. We will monitor. 01/04; patient is anxious to go home, wound VAC is delivered to the bedside, continue wound care Multiple social issues, DC planning per case management, left lower extremity Doppler negative for DVT 01/05; discharge planning, multiple social issues 01/06; continue current management, wound VAC in place, DC planning issues 01/07; discharge planning per case management, setting up wound VAC, setting up outpatient wound care Setting up follow-up visits with physicians, patient has multiple social issues and no payer source Continue current management discharge when medically stable 01/08; patient's LFTs are trending down, continue current management Wound VAC care, wound VAC change per instructions, wound care as indicated Discharge planning per case management 01/09; patient is medically stable for discharge Awaiting discharge planning coordinating with wound VAC and wound care Post discharge follow-up visit with vascular Dr. Lenard Kimble on 01/28/2020 at 10 AM 01/10; vascular /IR Dr. Swann evaluation and recommendations noted and appreciated Patient's wound had some peculiar infection smell, started on doxycycline And recommended aggressive wound care. 01/11; iron project construction manager talk to Dr. Swann regarding the treatment and discharge planning Dr. Swann informed that wound care should follow regularly and aggressively manage the wounds And once the wounds show significant healing wound VAC can be placed and patient may be discharged home with home health. Outpatient wound clinic 3 times a week and follow-up with vascular IR per schedule 01/12: Continue dressing change per wound care. Patient initiated on doxycycline, surgical culture is growing bacillus. Discharge planning per vascular recommendation once wound VAC is placed. Continue supportive care. 01/13: Continue regular wound care, continue empiric antibiotic, wait on culture sensitivity. Discharge planning per vascular surgery. 01/14: continue empiric antibiotic, wait on culture sensitivity. Discharge planning per vascular surgery. Continue regular wound care, Assessment and plan; --Compartment syndrome to LLE -Vascular surgery consulted, appreciate recommendations -s/p self admin of IM abx to [facility] -c/o pain, decreased sensation, pulses were dopplarable, paralysis, mottled skin -s/p 4 compartment tracheotomy on 12/21 with vascular surgery -Bilateral lower extremity Doppler ultrasound showed no DVT -Left lower extremity CT with contrast showed appearance of posterior soft tissue complex cellulitis with small subcutaneous lymph nodes, no drainable fluid collections present, contusion could have similar appearance -Bilateral lower extremity arterial duplex showed no significant lower extremity peripheral artery disease -Normal ABIs Patient received wound VAC, with aggressive management and frequent changing. And with supportive care Patient was being prepared to discharge with home health and outpatient wound care 3 times a week. However patient's wound got significantly infected, wound VAC was removed, wound care personal consulted and they are aggressively treating the wounds. Once the wound infection improves, patient may receive wound VAC and then patient may be discharged home with follow-up visit with Dr. Lenard Kimble Outpatient wound care 3 times a week --Peripheral neuropathy Continue gabapentin Neurology evaluated --HTN Moderate control, continue current antihypertensives As needed medications --Rhabdomyolysis; Improved from 95,000 CK -1001 week ago Closely monitor IV hydration --acute kidney injury with vasomotor nephropathy now resolved Monitor renal function Avoid nephrotoxin. gentle hydration as needed Patient is not ready for discharge at this point. Plan of care reviewed in detail with the patient and her nurse Disposition; continue aggressive wound care, once infection is well controlled wound VAC can be applied and patient will be discharged in a stable condition Subjective Date of service: 01/14/22 Principal diagnosis: abnormal liver enzymes Interval history: Patient seen and examined. Medical records and medication list reviewed. No acute event overnight noted by the RN. Patient denies any chest pain or difficulty breathing. Patient is tolerating diet. Discussed plan of care at bedside with patient. Objective - Exam Narrative Exam: General appearance: Present: mild distress, well-nourished, obese - EENT Eyes: Present: PERRL, EOM intact ENT: clear oral mucosa - Neck Neck: Present: supple, normal ROM - Respiratory Respiratory effort: normal Respiratory: bilateral: diminished, rhonchi, negative: rales, wheezing - Cardiovascular Rhythm: regular Heart Sounds: Present: S1 & S2 - Extremities Extremities: no ischemia, No edema, abnormal (Left lower extremity, dressing in place, elevated) - Abdominal General gastrointestinal: soft, non-tender, non-distended, normal bowel sounds - Integumentary Integumentary: Present: clear, warm - Psychiatric Psychiatric: appropriate mood/affect, cooperative - Neurologic Neurologic: CNII-XII intact, moves all extremities - Constitutional Vitals: Vital Signs - 12hr 01/14/22 01/14/22 01/14/22 05:46 10:00 11:29 Temperature 98.4 F 97.6 F Pulse Rate 86 92 H Respiratory 18 18 Rate Blood Pressure 105/56 113/76 O2 Sat by Pulse 97 97 98 Oximetry - Labs CBC & Chem 7: 01/14/22 05:37 01/14/22 05:37 Labs: Abnormal lab results 01/14/22 01/14/22 Range/Units 05:37 05:37 Hgb 10.7 L (11.8-15.2) gm/dl Hct 32.4 L (35.5-45.6) % Sodium 134 L (137-145) mmol/L Chloride 97.4 L (98-107) mmol/L BUN 8 L (9-20) mg/dL Creatinine 0.6 L (0.8-1.3) mg/dL Glucose 105 H (75-100) mg/dL
[2022-01-14] MEDS: SODIUM HYPOCHLORITE, DAKIN'S FULL STRENGTH (0.5%) 473 ML TOPICAL SOLN TP SCH (15:50)
[2022-01-14] MEDS: HYDROmorphone 1 MG/1 ML INJ IV PRN ×2 (16:02)
[2022-01-15] MEDS: DOXYCYCLINE HYCLATE 100 MG in SODIUM CHLORIDE 0.9% 250ML 250 ML IV SCH ×2 (05:57→18:51)
[2022-01-15] MEDS: FAMOTIDINE 20 MG TAB PO SCH ×2 (09:09→23:10)
[2022-01-15] MEDS: DOCUSATE SODIUM 100 MG CAP PO SCH ×2 (09:09→23:10)
[2022-01-15] MEDS: VALSARTAN 160MG TAB PO SCH (09:09)
[2022-01-15] MEDS: HEPARIN 5,000 UNIT/1 ML VIAL SUB-Q SCH ×2 (09:10→23:10)
[2022-01-15] MEDS: GABAPENTIN 300 MG CAP PO SCH ×3 (09:10→23:10)
[2022-01-15] MEDS: SODIUM HYPOCHLORITE, DAKIN'S FULL STRENGTH (0.5%) 473 ML TOPICAL SOLN TP SCH (09:11)
--- NOTE | 2022-01-15 11:13 | Progress Note ---
Assessment and Plan This is a 36 year old transgendered female undergoing gender transformation with silicone injection to buttocks ([place] 2016) and breast implants, heavy drinker on the weekends (bottle of vodka) who presented to [facility] on 12/21 because of adverse drug reaction after reportedly self administration of rocephin and PCN for sore throat. Patient reportedly collapsed while checking in to the emergency department, has complains of severe 10 out of 10 pain in left thigh and has noticeable mottling of skin in thigh and left lower abdomen. Patient underwent a CT of the left leg which showed possible cellulitis with no drainable fluid collection and was started on empiric antibiotics. Patient admitted to the hospital service with diagnosis of acute liver failure, rhabdomyolysis, s/p 4 compartment fasciotomy to left lower extremity. Patient received antibiotics, wound care, wound VAC treatment and was planning to be discharged However developed a wound infection, wound VAC was removed, medical personnel aggressively treating the patient. Discharge was held Hospital course to date: 12/21: Venous ultrasound shows no DVT, Vascular surgery consulted who performed a fasciotomy and plan to transfer patient to [facility] post intervention. Neurology consulted 12/22: Transfer to ICU, GI and neurology consulted. 12/23: Patient will be transferred back to the floor from ICU. Her liver enzymes and creatinine are trending down. Will be started on gabapentin per neurology recommendations and antibiotics discontinued. 12/24: Continue supportive care. CPK slowly improving. Vascular plans for closure of fasciotomy early next week. PT OT evaluation and treatment closure done. Continue wound management. No evidence of withdrawal noted at this time. Continue to monitor LFTs which are also slightly improving. Plan discussed in detail with the patient who verbalized understanding 12/25: Patient seen and examined clinically stable continues to show some improvement. Closure of fasciotomy planned for tomorrow. Renal function is improving. CK ordered and pending 12/26: Patient seen and examined, wbc mildly elevated likely secondary to steroids, will change to po for two additional days and stop, benefit probably already achieved, continue wound dressing, sensory function improved, awaiting wound vac and closure. Patient advised on clinically progress. 12/27: Patient seen and examined awaiting her vascular surgery for closure of fasciotomy. CK is decreasing less than 9000 today. We will continue aggressive IV fluids until we have the resolution below 5000. LFTs on the downward trend also. Leukocytosis appears to have peaked steroids was changed to oral for 2 additional days today is 1 of 2.. Plan of care discussed in detail with the patient who verbalized understanding. 12/28: Left lower extremity compartment syndrome status post fasciotomies. Cause is still unclear and may represent some allergic reaction. Motor function is unchanged from original exam. Sensory function has improved with full sensation of the foot.vascular surgery to place wound vacs on the leg today. CK improved to the 8000 range today 12/29: Patient underwent excisional debridement of muscle and soft tissue from left leg wound yesterday. Patient also had wound VAC placement left leg fasciotomy incisions. The patient had moderate amount of superficial necrotic muscle in the anterior lateral compartments with minimal amount of superficial necrotic muscle in the posterior compartment. Follow-up culture results. CK levels have improved to 6900 range. AST/ALT continue to trend downward. 12/30: I discussed the case with Dr. Lopez who recommends home wound VAC as well as physical therapy. I also discussed these needs with case management who was attempting to arrange for discharge planning. CK continues to improve with levels in the 4000 range. 12/31: Still awaiting for home wound VAC arrangements to be made. Leukocytosis is much improved down to 13,900 today. LFTs continue to trend down to normal range. CK levels still in the 4000 range. Nephrology has signed off. Anticipate discharge later today or in a.m. 01/01: Still awaiting for home wound VAC arrangements to be made. Laboratories continue to include including LFTs, CK and leukocytosis. 01/02: Still awaiting for home wound VAC arrangements to be made. 01/03: Patient had an episode of syncope while working with PT today. Nurse reports patient lost consciousness for a few seconds and was helped back to the bed. Patient's blood pressure was noted to be hypotensive/orthostatic. We will bolus 500 normal saline IV fluid and monitor orthostatics. Case management reports that wound VAC should be delivered today. LFTs continue to trend down to normal range. CK levels still in the 2000 range. Nephrology has signed off. Anticipate discharge in a.m. given the syncope and once wound VAC arranged. Patient with low-grade temp. We will monitor. 01/04; patient is anxious to go home, wound VAC is delivered to the bedside, continue wound care Multiple social issues, DC planning per case management, left lower extremity Doppler negative for DVT 01/05; discharge planning, multiple social issues 01/06; continue current management, wound VAC in place, DC planning issues 01/07; discharge planning per case management, setting up wound VAC, setting up outpatient wound care Setting up follow-up visits with physicians, patient has multiple social issues and no payer source Continue current management discharge when medically stable 01/08; patient's LFTs are trending down, continue current management Wound VAC care, wound VAC change per instructions, wound care as indicated Discharge planning per case management 01/09; patient is medically stable for discharge Awaiting discharge planning coordinating with wound VAC and wound care Post discharge follow-up visit with vascular Dr. Lenard Kimble on 01/28/2020 at 10 AM 01/10; vascular /IR Dr. Swann evaluation and recommendations noted and appreciated Patient's wound had some peculiar infection smell, started on doxycycline And recommended aggressive wound care. 01/11; iron consulting services manager talk to Dr. Swann regarding the treatment and discharge planning Dr. Swann informed that wound care should follow regularly and aggressively manage the wounds And once the wounds show significant healing wound VAC can be placed and patient may be discharged home with home health. Outpatient wound clinic 3 times a week and follow-up with vascular IR per schedule 01/12: Continue dressing change per wound care. Patient initiated on doxycycline, surgical culture is growing bacillus. Discharge planning per vascular recommendation once wound VAC is placed. Continue supportive care. 01/13: Continue regular wound care, continue empiric antibiotic, wait on culture sensitivity. Discharge planning per vascular surgery. 01/14: continue empiric antibiotic, wait on culture sensitivity. Discharge planning per vascular surgery. Continue regular wound care, 01/15: Continue empiric antibiotics, wait for better wound healing to place wound VAC, plan to DC patient once wound VAC will be placed. consult surgery for debridement Assessment and plan; --Compartment syndrome to LLE -Vascular surgery consulted, appreciate recommendations -s/p self admin of IM abx to midthigh -c/o pain, decreased sensation, pulses were dopplarable, paralysis, mottled skin -s/p 4 compartment tracheotomy on 12/21 with vascular surgery -Bilateral lower extremity Doppler ultrasound showed no DVT -Left lower extremity CT with contrast showed appearance of posterior soft tissue complex cellulitis with small subcutaneous lymph nodes, no drainable fluid collections p resent, contusion could have similar appearance -Bilateral lower extremity arterial duplex showed no significant lower extremity peripheral artery disease -Normal ABIs Patient received wound VAC, with aggressive management and frequent changing. And with supportive care Patient was being prepared to discharge with home health and outpatient wound care 3 times a week. However patient's wound got significantly infected, wound VAC was removed, wound care personal consulted and they are aggressively treating the wounds. Once the wound infection improves, patient may receive wound VAC and then patient may be discharged home with follow-up visit with Dr. Lenard Kimble Outpatient wound care 3 times a week --Peripheral neuropathy Continue gabapentin Neurology evaluated --HTN Moderate control, continue current antihypertensives As needed medications --Rhabdomyolysis; Improved from 95,000 CK -1001 week ago Closely monitor IV hydration --acute kidney injury with vasomotor nephropathy now resolved Monitor renal function Avoid nephrotoxin. gentle hydration as needed Patient is not ready for discharge at this point. Plan of care reviewed in detail with the patient and her nurse Disposition; continue aggressive wound care, once infection is well controlled wound VAC can be applied and patient will be discharged in a stable condition Subjective Date of service: 01/15/22 Principal diagnosis: abnormal liver enzymes Interval history: Patient seen and examined. Medical records and medication list reviewed. No acute event overnight noted by the RN. Patient denies any chest pain or difficulty breathing. Patient is tolerating diet. Discussed plan of care at bedside with patient. Objective - Exam Narrative Exam: General appearance: Present: mild distress, well-nourished, obese - EENT Eyes: Present: PERRL, EOM intact ENT: clear oral mucosa - Neck Neck: Present: supple, normal ROM - Respiratory Respiratory effort: normal Respiratory: bilateral: diminished, rhonchi, negative: rales, wheezing - Cardiovascular Rhythm: regular Heart Sounds: Present: S1 & S2 - Extremities Extremities: no ischemia, No edema, abnormal (Left lower extremity, dressing in place, elevated) - Abdominal General gastrointestinal: soft, non-tender, non-distended, normal bowel sounds - Integumentary Integumentary: Present: clear, warm - Psychiatric Psychiatric: appropriate mood/affect, cooperative - Neurologic Neurologic: CNII-XII intact, moves all extremities - Constitutional Vitals: Vital Signs - 12hr 01/15/22 08:51 O2 Sat by Pulse 97 Oximetry - Labs CBC & Chem 7: 01/14/22 05:37 01/14/22 05:37
[2022-01-15] MEDS: HYDROmorphone 1 MG/1 ML INJ IV PRN ×2 (15:44→23:21)
[2022-01-15] MEDS: oxyCODONE /ACETAMINOPHEN 5-325MG TAB PO PRN (18:55)
[2022-01-16] MEDS: DOXYCYCLINE HYCLATE 100 MG in SODIUM CHLORIDE 0.9% 250ML 250 ML IV SCH ×2 (05:28→18:22)
[2022-01-16] MEDS: HYDROmorphone 1 MG/1 ML INJ IV PRN ×3 (05:32→22:20)
[2022-01-16] MEDS: FAMOTIDINE 20 MG TAB PO SCH ×2 (10:44→22:19)
[2022-01-16] MEDS: GABAPENTIN 300 MG CAP PO SCH ×3 (10:44→22:19)
[2022-01-16] MEDS: DOCUSATE SODIUM 100 MG CAP PO SCH ×2 (10:44→22:19)
[2022-01-16] MEDS: VALSARTAN 160MG TAB PO SCH (10:44)
[2022-01-16] MEDS: HEPARIN 5,000 UNIT/1 ML VIAL SUB-Q SCH ×2 (10:46→22:19)
--- NOTE | 2022-01-16 12:08 | Progress Note ---
Assessment and Plan This is a 36 year old transgendered female undergoing gender transformation with silicone injection to buttocks ([place] 2016) and breast implants, heavy drinker on the weekends (bottle of vodka) who presented to [facility] on 12/21 because of adverse drug reaction after reportedly self administration of rocephin and PCN for sore throat. Patient reportedly collapsed while checking in to the emergency department, has complains of severe 10 out of 10 pain in left thigh and has noticeable mottling of skin in thigh and left lower abdomen. Patient underwent a CT of the left leg which showed possible cellulitis with no drainable fluid collection and was started on empiric antibiotics. Patient admitted to the hospital service with diagnosis of acute liver failure, rhabdomyolysis, s/p 4 compartment fasciotomy to left lower extremity. Patient received antibiotics, wound care, wound VAC treatment and was planning to be discharged However developed a wound infection, wound VAC was removed, medical personnel aggressively treating the patient. Discharge was held Hospital course to date: 12/21: Venous ultrasound shows no DVT, Vascular surgery consulted who performed a fasciotomy and plan to transfer patient to [facility] post intervention. Neurology consulted 12/22: Transfer to ICU, GI and neurology consulted. 12/23: Patient will be transferred back to the floor from ICU. Her liver enzymes and creatinine are trending down. Will be started on gabapentin per neurology recommendations and antibiotics discontinued. 12/24: Continue supportive care. CPK slowly improving. Vascular plans for closure of fasciotomy early next week. PT OT evaluation and treatment closure done. Continue wound management. No evidence of withdrawal noted at this time. Continue to monitor LFTs which are also slightly improving. Plan discussed in detail with the patient who verbalized understanding 12/25: Patient seen and examined clinically stable continues to show some improvement. Closure of fasciotomy planned for tomorrow. Renal function is improving. CK ordered and pending 12/26: Patient seen and examined, wbc mildly elevated likely secondary to steroids, will change to po for two additional days and stop, benefit probably already achieved, continue wound dressing, sensory function improved, awaiting wound vac and closure. Patient advised on clinically progress. 12/27: Patient seen and examined awaiting her vascular surgery for closure of fasciotomy. CK is decreasing less than 9000 today. We will continue aggressive IV fluids until we have the resolution below 5000. LFTs on the downward trend also. Leukocytosis appears to have peaked steroids was changed to oral for 2 additional days today is 1 of 2.. Plan of care discussed in detail with the patient who verbalized understanding. 12/28: Left lower extremity compartment syndrome status post fasciotomies. Cause is still unclear and may represent some allergic reaction. Motor function is unchanged from original exam. Sensory function has improved with full sensation of the foot.vascular surgery to place wound vacs on the leg today. CK improved to the 8000 range today 12/29: Patient underwent excisional debridement of muscle and soft tissue from left leg wound yesterday. Patient also had wound VAC placement left leg fasciotomy incisions. The patient had moderate amount of superficial necrotic muscle in the anterior lateral compartments with minimal amount of superficial necrotic muscle in the posterior compartment. Follow-up culture results. CK levels have improved to 6900 range. AST/ALT continue to trend downward. 12/30: I discussed the case with Dr. Lopez who recommends home wound VAC as well as physical therapy. I also discussed these needs with case management who was attempting to arrange for discharge planning. CK continues to improve with levels in the 4000 range. 12/31: Still awaiting for home wound VAC arrangements to be made. Leukocytosis is much improved down to 13,900 today. LFTs continue to trend down to normal range. CK levels still in the 4000 range. Nephrology has signed off. Anticipate discharge later today or in a.m. 01/01: Still awaiting for home wound VAC arrangements to be made. Laboratories continue to include including LFTs, CK and leukocytosis. 01/02: Still awaiting for home wound VAC arrangements to be made. 01/03: Patient had an episode of syncope while working with PT today. Nurse reports patient lost consciousness for a few seconds and was helped back to the bed. Patient's blood pressure was noted to be hypotensive/orthostatic. We will bolus 500 normal saline IV fluid and monitor orthostatics. Case management reports that wound VAC should be delivered today. LFTs continue to trend down to normal range. CK levels still in the 2000 range. Nephrology has signed off. Anticipate discharge in a.m. given the syncope and once wound VAC arranged. Patient with low-grade temp. We will monitor. 01/04; patient is anxious to go home, wound VAC is delivered to the bedside, continue wound care Multiple social issues, DC planning per case management, left lower extremity Doppler negative for DVT 01/05; discharge planning, multiple social issues 01/06; continue current management, wound VAC in place, DC planning issues 01/07; discharge planning per case management, setting up wound VAC, setting up outpatient wound care Setting up follow-up visits with physicians, patient has multiple social issues and no payer source Continue current management discharge when medically stable 01/08; patient's LFTs are trending down, continue current management Wound VAC care, wound VAC change per instructions, wound care as indicated Discharge planning per case management 01/09; patient is medically stable for discharge Awaiting discharge planning coordinating with wound VAC and wound care Post discharge follow-up visit with vascular Dr. Lenard Kimble on 01/28/2020 at 10 AM 01/10; vascular /IR Dr. Swann evaluation and recommendations noted and appreciated Patient's wound had some peculiar infection smell, started on doxycycline And recommended aggressive wound care. 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 Swann informed that wound care should follow regularly and aggressively manage the wounds And once the wounds show significant healing wound VAC can be placed and patient may be discharged home with home health. Outpatient wound clinic 3 times a week and follow-up with vascular IR per schedule 01/12: Continue dressing change per wound care. Patient initiated on doxycycline, surgical culture is growing bacillus. Discharge planning per vascular recommendation once wound VAC is placed. Continue supportive care. 01/13: Continue regular wound care, continue empiric antibiotic, wait on culture sensitivity. Discharge planning per vascular surgery. 01/14: continue empiric antibiotic, wait on culture sensitivity. Discharge planning per vascular surgery. Continue regular wound care, 01/15: Continue empiric antibiotics, wait for better wound healing to place wound VAC, plan to DC patient once wound VAC will be placed. consult surgery for debridement. 01/16: Discussed with Dr. Araya yesterday, if patient need any debridement possibly will be done on next week Monday. Continue wound care And antibiotics Assessment and plan; --Compartment syndrome to LLE -Vascular surgery consulted, appreciate recommendations -s/p self admin of IM abx to midthigh -c/o pain, decreased sensation, pulses were dopplarable, paralysis, mottled skin -s/p 4 compartment tracheotomy on 12/21 with vascular surgery -Bilateral lower extremity Doppler ultrasound showed no DVT -Left lower extremity CT with contrast showed appearance of posterior soft tissue complex cellulitis with small subcutaneous lymph nodes, no drainable fluid collections present, contusion could have similar appearance -Bilateral lower extremity arterial duplex showed no significant lower extremity peripheral artery disease -Normal ABIs Patient received wound VAC, with aggressive management and frequent changing. And with supportive care Patient was being prepared to discharge with home health and outpatient wound care 3 times a week. However patient's wound got significantly infected, wound VAC was removed, wound care personal consulted and they are aggressively treating the wounds. Once the wound infection improves, patient may receive wound VAC and then patient may be discharged home with follow-up visit with Dr. Lenard Kimble Outpatient wound care 3 times a week --Peripheral neuropathy Continue gabapentin Neurology evaluated --HTN Moderate control, continue current antihypertensives As needed medications --Rhabdomyolysis; Improved from 95,000 CK -1001 week ago Closely monitor IV hydration --acute kidney injury with vasomotor nephropathy now resolved Monitor renal function Avoid nephrotoxin. gentle hydration as needed Patient is not ready for discharge at this point. Plan of care reviewed in detail with the patient and her nurse Disposition; continue aggressive wound care, once infection is well controlled wound VAC can be applied and patient will be discharged in a stable condition Subjective Date of service: 01/16/22 Principal diagnosis: abnormal liver enzymes Interval history: Patient seen and examined. Medical records and medication list reviewed. No acute event overnight noted by the RN. Patient denies any chest pain or difficulty breathing. Patient is tolerating diet. Discussed plan of care at bedside with patient. Objective - Exam Narrative Exam: General appearance: Present: mild distress, well-nourished, obese - EENT Eyes: Present: PERRL, EOM intact ENT: clear oral mucosa - Neck Neck: Present: supple, normal ROM - Respiratory Respiratory effort: normal Respiratory: bilateral: diminished, rhonchi, negative: rales, wheezing - Cardiovascular Rhythm: regular Heart Sounds: Present: S1 & S2 - Extremities Extremities: no ischemia, No edema, abnormal (Left lower extremity, dressing in place, elevated) - Abdominal General gastrointestinal: soft, non-tender, non-distended, normal bowel sounds - Integumentary Integumentary: Present: clear, warm - Psychiatric Psychiatric: appropriate mood/affect, cooperative - Neurologic Neurologic: CNII-XII intact, moves all extremities - Constitutional Vitals: Vital Signs - 12hr 01/16/22 01/16/22 01/16/22 04:31 10:42 10:44 Temperature 98.6 F 98.6 F Pulse Rate 77 77 77 Respiratory 18 16 Rate Blood Pressure 110/69 116/66 Blood Pressure 116/66 [Right] O2 Sat by Pulse 99 97 Oximetry - Labs CBC & Chem 7: 01/14/22 05:37 01/14/22 05:37
[2022-01-16] MEDS: oxyCODONE /ACETAMINOPHEN 5-325MG TAB PO PRN (14:46)
[2022-01-16] MEDS: SODIUM HYPOCHLORITE, DAKIN'S FULL STRENGTH (0.5%) 473 ML TOPICAL SOLN TP SCH (17:00)
--- NOTE | 2022-01-16 18:03 | Consultation ---
History of Present Illness Consult date: 01/16/22 Reason for consult: wound care - History of present illness History of present illness: 36-year-old fenced female was reconsulted from general surgery for evaluation of wound care. Patient was admitted with compartment syndrome after injecting a substance in her leg. This resulted in subsequent fasciotomies. Patient has been getting local wound care and intermittent wound VAC changes. Patient says that she still has minimal motor function but has returned sensory function in her left leg. Past History Past Medical History: No medical history Past Surgical History: Other (Buttock injection performed in [place] in 2017) Social history: other (Unknown) Family history: no significant family history Medications and Allergies Allergies Allergy/AdvReac Type Severity Reaction Status Date / Time ceftriaxone [From Rocephin] Allergy Severe Unknown Verified 12/23/21 10:23 Penicillins Allergy Severe Unknown Verified 12/23/21 10:23 Home Medications Medication Instructions Recorded Confirmed Last Taken Type No Known Home Medications [No 12/21/21 12/21/21 Unknown History Reported Home Medications] Active Meds: Active Medications Acetaminophen (Acetaminophen 325 Mg Tab) 650 mg PO Q6H PRN PRN Reason: Pain, Mild (1-3) Last Admin: 01/12/22 01:36 Dose: 650 mg Albuterol (Albuterol 2.5 Mg/3 Ml Nebu) 2.5 mg IH Q3HRT PRN PRN Reason: Shortness Of Breath Diphenhydramine HCl (Diphenhydramine 50 Mg/Ml Vial) 25 mg IV Q6H PRN PRN Reason: Skin Irritation Last Admin: 01/10/22 18:40 Dose: 25 mg Docusate Sodium (Docusate Sodium 100 Mg Cap) 100 mg PO BID [facility] Last Admin: 01/16/22 10:44 Dose: 100 mg Famotidine (Famotidine 20 Mg Tab) 20 mg PO BID [facility] Last Admin: 01/16/22 10:44 Dose: 20 mg Gabapentin (Gabapentin 300 Mg Cap) 300 mg PO TID@0800,1600,2200 [facility] Last Admin: 01/16/22 16:06 Dose: 300 mg Heparin Sodium (Porcine) (Heparin 5,000 Unit/1 Ml Vial) 5,000 unit SUB-Q Q12HR [facility] Last Admin: 01/16/22 10:46 Dose: 5,000 unit Hydralazine HCl (Hydralazine 20 Mg/1 Ml Inj) 10 mg IV Q3HR PRN PRN Reason: Hypertension Last Admin: 12/22/21 18:50 Dose: 10 mg Hydromorphone HCl (Hydromorphone 1 Mg/1 Ml Inj) 0.5 mg IV Q3H PRN PRN Reason: Pain , Severe (7-10) Last Admin: 01/16/22 16:40 Dose: 0.5 mg Doxycycline Hyclate 100 mg/ (Sodium Chloride) 250 mls @ 250 mls/hr IV Q12H [facility]; Protocol Stop: 01/17/22 06:59 Last Admin: 01/16/22 05:28 Dose: 250 mls/hr Ondansetron HCl (Ondansetron 4 Mg/2 Ml Inj) 4 mg IV Q8H PRN PRN Reason: Nausea And Vomiting Last Admin: 01/12/22 22:29 Dose: 4 mg Oxycodone/Acetaminophen (Oxycodone /Acetaminophen 5-325mg Tab) 1 tab PO Q6H PRN PRN Reason: Pain, Moderate (4-6) Last Admin: 01/16/22 14:46 Dose: 1 tab Sodium Chloride (Sodium Chloride 0.9% 10 Ml Flush Syringe) 10 ml IV BID [facility] Last Admin: 01/16/22 10:47 Dose: 10 ml Sodium Chloride (Sodium Chloride 0.9% 10 Ml Flush Syringe) 10 ml IV PRN PRN PRN Reason: LINE FLUSH Last Admin: 01/12/22 01:33 Dose: 10 ml Sodium Chloride (Sodium Chloride 0.9% Irr 500 Ml Bottle) 500 ml IR DIRECT PRN PRN Reason: Wound Care Last Admin: 01/10/22 19:32 Dose: 500 ml Sodium Hypochlorite (Sodium Hypochlorite, Dakin's Full Strength (0.5%) 473 Ml Topical Soln) 1 applic TP DAILY [facility] Last Admin: 01/15/22 09:11 Dose: 0.5 1000units Valsartan (Valsartan 160mg Tab) 160 mg PO DAILY [facility] Last Admin: 01/16/22 10:44 Dose: 160 mg Review of Systems All systems: negative - Muskuloskeletal shooting leg pain, limitation of motion - Integumentary wounds Exam Vital Signs Temp Pulse Resp BP Pulse Ox 98.6 F 110 H 24 174/94 100 12/20/21 23:11 12/20/21 23:11 12/20/21 23:11 12/20/21 23:11 12/20/21 23:11 - General physical appearance Positive: well developed, no distress, no pain - Eyes Positive: PERRL - Respiratory Positive: normal expansion, normal respiratory effort - Cardiovascular Heart Sounds: Present: S1 & S2 - Extremities Extremity abnormal: other (left leg with both medial & lateral calf wounds. c/w pictures of wounds taken by wound care nurse from 01/11/2022. Medial wound clean w/ beefy granulation tissue. Lateral wound w/ beefy granulation tissue interspersed w/ some eschar & fibrinous exudate, Minimal odor. Numerous tendons exposed ) Results - Labs 01/14/22 05:37 01/14/22 05:37 Assessment and Plan 36-year-old female status post left leg fasciotomy for compartment syndrome. Patient has wounds that are slow to heal. I conferred with Dr. Brown who does outpatient wound care about treatment options at this time. Wound VAC is not recommended currently due to exposed tendons. There was superficial debridement of some necrotic eschar and fibrinous exudate on the lateral side. Cannot be too aggressive due to significant visible exposed tendons. Recommend Adaptic followed by wet-to-dry dressings over wounds. Dakin solution could be placed on lateral aspect. Recommend antibiotics tailored to culture results. Patient can be seen in outpatient wound care clinic. Medihoney which is not available in the hospital could be used on lateral aspect to help clean up wound and dissolve eschar.
[2022-01-17 05:05] LABS: Blood Urea Nitrogen 8 mg/dL (9-20); Calcium 9.3 mg/dL (8.4-10.2); Hemolysis Index 9
[2022-01-17 05:10] LABS: Basophils % (Auto) 0.3 % (0.0-1.8); Eosinophils # (Auto) 0.1 K/mm3 (0.0-0.4); Eosinophils % (Auto) 1.9 % (0.0-4.3); Hematocrit 32.9 % (35.5-45.6); Hemoglobin 11.4 gm/dl (11.8-15.2); Lymphocytes # (Auto) 2.2 K/mm3 (1.2-5.4); Lymphocytes % (Auto) 37.8 % (13.4-35.0); Mean Corpuscular HGB Conc 35 % (32-34); Mean Corpuscular Volume 95 fl (84-94); Monocytes # (Auto) 0.8 K/mm3 (0.0-0.8); Monocytes % (Auto) 13.4 % (0.0-7.3); Platelet Count 444 K/mm3 (140-440); Red Blood Count 3.48 M/mm3 (3.65-5.03); Red Cell Distribution Width 13.4 % (13.2-15.2)
[2022-01-17 05:23] LABS: BUN/Creatinine Ratio 13
[2022-01-17] MEDS: DOXYCYCLINE HYCLATE 100 MG in SODIUM CHLORIDE 0.9% 250ML 250 ML IV SCH (06:00)
[2022-01-17] MEDS: HYDROmorphone 1 MG/1 ML INJ IV PRN ×3 (06:05→20:07)
[2022-01-17] MEDS: GABAPENTIN 300 MG CAP PO SCH ×3 (09:05→22:09)
[2022-01-17] MEDS: DOCUSATE SODIUM 100 MG CAP PO SCH ×2 (09:05→22:09)
[2022-01-17] MEDS: oxyCODONE /ACETAMINOPHEN 5-325MG TAB PO PRN (09:05)
[2022-01-17] MEDS: HEPARIN 5,000 UNIT/1 ML VIAL SUB-Q SCH ×2 (09:06→22:09)
[2022-01-17] MEDS: FAMOTIDINE 20 MG TAB PO SCH ×2 (09:06→22:09)
[2022-01-17] MEDS: SODIUM HYPOCHLORITE, DAKIN'S FULL STRENGTH (0.5%) 473 ML TOPICAL SOLN TP SCH (11:16)
[2022-01-17] MEDS: VALSARTAN 160MG TAB PO SCH (11:17)
--- NOTE | 2022-01-17 12:34 | Progress Note ---
Assessment and Plan This is a 36 year old transgendered female undergoing gender transformation with silicone injection to buttocks ([place] 2016) and breast implants, heavy drinker on the weekends (bottle of vodka) who presented to [facility] on 12/21 because of adverse drug reaction after reportedly self administration of rocephin and PCN for sore throat. Patient reportedly collapsed while checking in to the emergency department, has complains of severe 10 out of 10 pain in left thigh and has noticeable mottling of skin in thigh and left lower abdomen. Patient underwent a CT of the left leg which showed possible cellulitis with no drainable fluid collection and was started on empiric antibiotics. Patient admitted to the hospital service with diagnosis of acute liver failure, rhabdomyolysis, s/p 4 compartment fasciotomy to left lower extremity. Patient received antibiotics, wound care, wound VAC treatment and was planning to be discharged However developed a wound infection, wound VAC was removed, medical personnel aggressively treating the patient. Discharge was held Hospital course to date: 12/21: Venous ultrasound shows no DVT, Vascular surgery consulted who performed a fasciotomy and plan to transfer patient to [facility] post intervention. Neurology consulted 12/22: Transfer to ICU, GI and neurology consulted. 12/23: Patient will be transferred back to the floor from ICU. Her liver enzymes and creatinine are trending down. Will be started on gabapentin per neurology recommendations and antibiotics discontinued. 12/24: Continue supportive care. CPK slowly improving. Vascular plans for closure of fasciotomy early next week. PT OT evaluation and treatment closure done. Continue wound management. No evidence of withdrawal noted at this time. Continue to monitor LFTs which are also slightly improving. Plan discussed in detail with the patient who verbalized understanding 12/25: Patient seen and examined clinically stable continues to show some improvement. Closure of fasciotomy planned for tomorrow. Renal function is improving. CK ordered and pending 12/26: Patient seen and examined, wbc mildly elevated likely secondary to steroids, will change to po for two additional days and stop, benefit probably already achieved, continue wound dressing, sensory function improved, awaiting wound vac and closure. Patient advised on clinically progress. 12/27: Patient seen and examined awaiting her vascular surgery for closure of fasciotomy. CK is decreasing less than 9000 today. We will continue aggressive IV fluids until we have the resolution below 5000. LFTs on the downward trend also. Leukocytosis appears to have peaked steroids was changed to oral for 2 additional days today is 1 of 2.. Plan of care discussed in detail with the patient who verbalized understanding. 12/28: Left lower extremity compartment syndrome status post fasciotomies. Cause is still unclear and may represent some allergic reaction. Motor function is unchanged from original exam. Sensory function has improved with full sensation of the foot.vascular surgery to place wound vacs on the leg today. CK improved to the 8000 range today 12/29: Patient underwent excisional debridement of muscle and soft tissue from left leg wound yesterday. Patient also had wound VAC placement left leg fasciotomy incisions. The patient had moderate amount of superficial necrotic muscle in the anterior lateral compartments with minimal amount of superficial necrotic muscle in the posterior compartment. Follow-up culture results. CK levels have improved to 6900 range. AST/ALT continue to trend downward. 12/30: I discussed the case with Dr. Lopez who recommends home wound VAC as well as physical therapy. I also discussed these needs with case management who was attempting to arrange for discharge planning. CK continues to improve with levels in the 4000 range. 12/31: Still awaiting for home wound VAC arrangements to be made. Leukocytosis is much improved down to 13,900 today. LFTs continue to trend down to normal range. CK levels still in the 4000 range. Nephrology has signed off. Anticipate discharge later today or in a.m. 01/01: Still awaiting for home wound VAC arrangements to be made. Laboratories continue to include including LFTs, CK and leukocytosis. 01/02: Still awaiting for home wound VAC arrangements to be made. 01/03: Patient had an episode of syncope while working with PT today. Nurse reports patient lost consciousness for a few seconds and was helped back to the bed. Patient's blood pressure was noted to be hypotensive/orthostatic. We will bolus 500 normal saline IV fluid and monitor orthostatics. Case management reports that wound VAC should be delivered today. LFTs continue to trend down to normal range. CK levels still in the 2000 range. Nephrology has signed off. Anticipate discharge in a.m. given the syncope and once wound VAC arranged. Patient with low-grade temp. We will monitor. 01/04; patient is anxious to go home, wound VAC is delivered to the bedside, continue wound care Multiple social issues, DC planning per case management, left lower extremity Doppler negative for DVT 01/05; discharge planning, multiple social issues 01/06; continue current management, wound VAC in place, DC planning issues 01/07; discharge planning per case management, setting up wound VAC, setting up outpatient wound care Setting up follow-up visits with physicians, patient has multiple social issues and no payer source Continue current management discharge when medically stable 01/08; patient's LFTs are trending down, continue current management Wound VAC care, wound VAC change per instructions, wound care as indicated Discharge planning per case management 01/09; patient is medically stable for discharge Awaiting discharge planning coordinating with wound VAC and wound care Post discharge follow-up visit with vascular Dr. Lenard Kimble on 01/28/2020 at 10 AM 01/10; vascular /IR Dr. Swann evaluation and recommendations noted and appreciated Patient's wound had some peculiar infection smell, started on doxycycline And recommended aggressive wound care. 01/11; iron merchandise presentation manager talk to Dr. Swann regarding the treatment and discharge planning Dr. Swann informed that wound care should follow regularly and aggressively manage the wounds And once the wounds show significant healing wound VAC can be placed and patient may be discharged home with home health. Outpatient wound clinic 3 times a week and follow-up with vascular IR per schedule 01/12: Continue dressing change per wound care. Patient initiated on doxycycline, surgical culture is growing bacillus. Discharge planning per vascular recommendation once wound VAC is placed. Continue supportive care. 01/13: Continue regular wound care, continue empiric antibiotic, wait on culture sensitivity. Discharge planning per vascular surgery. 01/14: continue empiric antibiotic, wait on culture sensitivity. Discharge planning per vascular surgery. Continue regular wound care, 01/15: Continue empiric antibiotics, wait for better wound healing to place wound VAC, plan to DC patient once wound VAC will be placed. consult surgery for debridement. 01/16: Discussed with Dr. Araya yesterday, if patient need any debridement possibly will be done on next week Monday. Continue wound care And antibiotics 01/17: Noted General surgery recommendation, patient wound is too large and deeply exposed to place on wound VAC. General surgery recommending regular wound care without wound VAC. Will await for vascular recommendation for discharge planning. Assessment and plan; --Compartment syndrome to LLE -Vascular surgery consulted, appreciate recommendations -s/p self admin of IM abx to midthigh -c/o pain, decreased sensation, pulses were dopplarable, paralysis, mottled skin -s/p 4 compartment tracheotomy on 12/21 with vascular surgery -Bilateral lower extremity Doppler ultrasound showed no DVT -Left lower extremity CT with contrast showed appearance of posterior soft tissue complex cellulitis with small subcutaneous lymph nodes, no drainable fluid collections present, contusion could have similar appearance -Bilateral lower extremity arterial duplex showed no significant lower extremity peripheral artery disease -Normal ABIs Patient received wound VAC, with aggressive management and frequent changing. And with supportive care Patient was being prepared to discharge with home health and outpatient wound care 3 times a week. However patient's wound got significantly infected, wound VAC was removed, wound care personal consulted and they are aggressively treating the wounds. Once the wound infection improves, patient may receive wound VAC and then patient may be discharged home with follow-up visit with Dr. Lenard Kimble Outpatient wound care 3 times a week --Peripheral neuropathy Continue gabapentin Neurology evaluated --HTN Moderate control, continue current antihypertensives As needed medications --Rhabdomyolysis; Improved from 95,000 CK -1001 week ago Closely monitor IV hydration --acute kidney injury with vasomotor nephropathy now resolved Monitor renal function Avoid nephrotoxin. gentle hydration as needed Patient is not ready for discharge at this point. Plan of care reviewed in detail with the patient and her nurse Disposition; continue aggressive wound care, discharge pending on GS and vascular clearance Subjective Date of service: 01/17/22 Principal diagnosis: abnormal liver enzymes Interval history: Patient seen and examined. Medical records and medication list reviewed. No acute event overnight noted by the RN. Patient denies any chest pain or difficulty breathing. Patient is tolerating diet. Discussed plan of care at bedside with patient. Objective - Exam Narrative Exam: General appearance: Present: mild distress, well-nourished, obese - EENT Eyes: Present: PERRL, EOM intact ENT: clear oral mucosa - Neck Neck: Present: supple, normal ROM - Respiratory Respiratory effort: normal Respiratory: bilateral: diminished, rhonchi, negative: rales, wheezing - Cardiovascular Rhythm: regular Heart Sounds: Present: S1 & S2 - Extremities Extremities: no ischemia, No edema, abnormal (Left lower extremity, dressing in place, elevated) - Abdominal General gastrointestinal: soft, non-tender, non-distended, normal bowel sounds - Integumentary Integumentary: Present: clear, warm - Psychiatric Psychiatric: appropriate mood/affect, cooperative - Neurologic Neurologic: CNII-XII intact, moves all extremities - Constitutional Vitals: Vital Signs - 12hr 01/17/22 01/17/22 01/17/22 06:11 07:59 11:05 Temperature 98.9 F 99.0 F Pulse Rate 90 93 H Respiratory 18 16 Rate Blood Pressure 111/67 Blood Pressure 109/54 [Right] O2 Sat by Pulse 95 98 94 Oximetry - Labs CBC & Chem 7: 01/17/22 04:25 01/17/22 04:25 Labs: Abnormal lab results 01/17/22 01/17/22 Range/Units 04:25 04:25 RBC 3.48 L (3.65-5.03) M/mm3 Hgb 11.4 L (11.8-15.2) gm/dl Hct 32.9 L (35.5-45.6) % MCV 95 H (84-94) fl MCH 33 H (28-32) pg MCHC 35 H (32-34) % Plt Count 444 H (140-440) K/mm3 Lymph % (Auto) 37.8 H (13.4-35.0) % [place] % (Auto) 13.4 H (0.0-7.3) % BUN 8 L (9-20) mg/dL Creatinine 0.6 L (0.8-1.3) mg/dL Glucose 105 H (75-100) mg/dL
[2022-01-18] MEDS: HYDROmorphone 1 MG/1 ML INJ IV PRN ×4 (02:20→21:47)
[2022-01-18] MEDS: GABAPENTIN 300 MG CAP PO SCH ×3 (08:00→21:45)
--- NOTE | 2022-01-18 08:42 | Progress Note ---
Assessment and Plan Assessment and plan: This is a 36 year old transgendered female undergoing gender transformation with silicone injection to buttocks ([place] 2016) and breast implants, heavy drinker on the weekends (bottle of vodka) who presented to [facility] on 12/21 because of adverse drug reaction after reportedly self administration of rocephin and PCN for sore throat. Patient reportedly collapsed while checking in to the emergency department, has complains of severe 10 out of 10 pain in left thigh and has noticeable mottling of skin in thigh and left lower abdomen. Patient underwent a CT of the left leg which showed possible cellulitis with no drainable fluid collection and was started on empiric antibiotics. Patient admitted to the hospital service with diagnosis of acute liver failure, rhabdomyolysis, s/p 4 compartment fasciotomy to left lower extremity. Patient received antibiotics, wound care, wound VAC treatment and was planning to be discharged However developed a wound infection, wound VAC was removed, medical personnel aggressively treating the patient. Discharge was held Hospital course to date: 12/21: Venous ultrasound shows no DVT, Vascular surgery consulted who performed a fasciotomy and plan to transfer patient to [facility] post intervention. Neurology consulted 12/22: Transfer to ICU, GI and neurology consulted. 12/23: Patient will be transferred back to the floor from ICU. Her liver enzymes and creatinine are trending down. Will be started on gabapentin per neurology recommendations and antibiotics discontinued. 12/24: Continue supportive care. CPK slowly improving. Vascular plans for closure of fasciotomy early next week. PT OT evaluation and treatment closure done. Continue wound management. No evidence of withdrawal noted at this time. Continue to monitor LFTs which are also slightly improving. Plan discussed in detail with the patient who verbalized understanding 12/25: Patient seen and examined clinically stable continues to show some improvement. Closure of fasciotomy planned for tomorrow. Renal function is improving. CK ordered and pending 12/26: Patient seen and examined, wbc mildly elevated likely secondary to steroids, will change to po for two additional days and stop, benefit probably already achieved, continue wound dressing, sensory function improved, awaiting wound vac and closure. Patient advised on clinically progress. 12/27: Patient seen and examined awaiting her vascular surgery for closure of fasciotomy. CK is decreasing less than 9000 today. We will continue aggressive IV fluids until we have the resolution below 5000. LFTs on the downward trend also. Leukocytosis appears to have peaked steroids was changed to oral for 2 additional days today is 1 of 2.. Plan of care discussed in detail with the patient who verbalized understanding. 12/28: Left lower extremity compartment syndrome status post fasciotomies. Ca use is still unclear and may represent some allergic reaction. Motor function is unchanged from original exam. Sensory function has improved with full sensation of the foot.vascular surgery to place wound vacs on the leg today. CK improved to the 8000 range today 12/29: Patient underwent excisional debridement of muscle and soft tissue from left leg wound yesterday. Patient also had wound VAC placement left leg fasciotomy incisions. The patient had moderate amount of superficial necrotic muscle in the anterior lateral compartments with minimal amount of superficial necrotic muscle in the posterior compartment. Follow-up culture results. CK levels have improved to 6900 range. AST/ALT continue to trend downward. 12/30: I discussed the case with Dr. Lopez who recommends home wound VAC as well as physical therapy. I also discussed these needs with case management who was attempting to arrange for discharge planning. CK continues to improve with levels in the 4000 range. 12/31: Still awaiting for home wound VAC arrangements to be made. Leukocytosis is much improved down to 13,900 today. LFTs continue to trend down to normal range. CK levels still in the 4000 range. Nephrology has signed off. Anticipate discharge later today or in a.m. 01/01: Still awaiting for home wound VAC arrangements to be made. Laboratories continue to include including LFTs, CK and leukocytosis. 01/02: Still awaiting for home wound VAC arrangements to be made. 01/03: Patient had an episode of syncope while working with PT today. Nurse reports patient lost consciousness for a few seconds and was helped back to the bed. Patient's blood pressure was noted to be hypotensive/orthostatic. We will bolus 500 normal saline IV fluid and monitor orthostatics. Case management reports that wound VAC should be delivered today. LFTs continue to trend down to normal range. CK levels still in the 2000 range. Nephrology has signed off. Anticipate discharge in a.m. given the syncope and once wound VAC arranged. Patient with low-grade temp. We will monitor. 01/04; patient is anxious to go home, wound VAC is delivered to the bedside, continue wound care Multiple social issues, DC planning per case management, left lower extremity Doppler negative for DVT 01/05; discharge planning, multiple social issues 01/06; continue current management, wound VAC in place, DC planning issues 01/07; discharge planning per case management, setting up wound VAC, setting up outpatient wound care Setting up follow-up visits with physicians, patient has multiple social issues and no payer source Continue current management discharge when medically stable 01/08; patient's LFTs are trending down, continue current management Wound VAC care, wound VAC change per instructions, wound care as indicated Discharge planning per case management 01/09; patient is medically stable for discharge Awaiting discharge planning coordinating with wound VAC and wound care Post discharge follow-up visit with vascular Dr. Lenard Kimble on 01/28/2020 at 10 AM 01/10; vascular /IR Dr. Swann evaluation and recommendations noted and appreciated Patient's wound had some peculiar infection smell, started on doxycycline And recommended aggressive wound care. 01/11; iron assistant guest services manager talk to Dr. Swann regarding the treatment and discharge planning Dr. Swann informed that wound care should follow regularly and aggressively manage the wounds And once the wounds show significant healing wound VAC can be placed and patient may be discharged home with home health. Outpatient wound clinic 3 times a week and follow-up with vascular IR per schedule 01/12: Continue dressing change per wound care. Patient initiated on doxyc ycline, surgical culture is growing bacillus. Discharge planning per vascular recommendation once wound VAC is placed. Continue supportive care. 01/13: Continue regular wound care, continue empiric antibiotic, wait on culture sensitivity. Discharge planning per vascular surgery. 01/14: continue empiric antibiotic, wait on culture sensitivity. Discharge planning per vascular surgery. Continue regular wound care, 01/15: Continue empiric antibiotics, wait for better wound healing to place wound VAC, plan to DC patient once wound VAC will be placed. consult surgery for debridement. 01/16: Discussed with Dr. Araya yesterday, if patient need any debridement possibly will be done on next week Monday. Continue wound care And antibiotics 01/17: Noted General surgery recommendation, patient wound is too large and deeply exposed to place on wound VAC. General surgery recommending regular wound care without wound VAC. Will await for vascular recommendation for discharge planning. 01/18; DC planning per case management, per vascular and general surgeon Multiple social issues Assessment and plan; --Compartment syndrome to LLE -Vascular surgery consulted, appreciate recommendations -s/p self admin of IM abx to [facility] -c/o pain, decreased sensation, pulses were dopplarable, paralysis, mottled skin -s/p 4 compartment tracheotomy on 12/21 with vascular surgery -Bilateral lower extremity Doppler ultrasound showed no DVT -Left lower extremity CT with contrast showed appearance of posterior soft tissue complex cellulitis with small subcutaneous lymph nodes, no drainable fluid collections present, contusion could have similar appearance -Bilateral lower extremity arterial duplex showed no significant lower extremity peripheral artery disease -Normal ABIs Patient received wound VAC, with aggressive management and frequent changing. And with supportive care Patient was being prepared to discharge with home health and outpatient wound care 3 times a week. However patient's wound got significantly infected, wound VAC was removed, wound care personal consulted and they are aggressively treating the wounds. Once the wound infection improves, patient may receive wound VAC and then patient may be discharged home with follow-up visit with Dr. Lenard Kimble Outpatient wound care 3 times a week --Peripheral neuropathy Continue gabapentin Neurology evaluated --HTN Moderate control, continue current antihypertensives As needed medications --Rhabdomyolysis; Improved from 95,000 CK -1001 week ago Closely monitor IV hydration --acute kidney injury with vasomotor nephropathy now resolved Monitor renal function Avoid nephrotoxin. gentle hydration as needed Patient is not ready for discharge at this point. Plan of care reviewed in detail with the patient and her nurse Disposition; continue aggressive wound care, discharge pending on GS and vas cular clearance History Interval history: I have seen and examined the patient at the bedside Patient's chart and medications reviewed Patient feels slightly better However wants to go home Complains of some pain in the leg Vital signs noted Hospitalist Physical - Constitutional Vitals: Temp Pulse Resp BP Pulse Ox 98.9 F 91 H 16 103/62 94 01/18/22 04:46 01/18/22 04:46 01/18/22 04:46 01/18/22 04:46 01/18/22 04:46 General appearance: Present: no acute distress, well-nourished, obese - EENT Eyes: Present: PERRL, EOM intact - Neck Neck: Present: supple, normal ROM - Respiratory Respiratory effort: normal Respiratory: bilateral: diminished, negative: rales, rhonchi, wheezing - Cardiovascular Rhythm: regular Heart Sounds: Present: S1 & S2 - Extremities Extremities: abnormal (Left lower extremity in dressing and elevated) - Abdominal General gastrointestinal: soft, non-tender, non-distended, normal bowel sounds - Integumentary Integumentary: Present: clear, warm - Psychiatric Psychiatric: appropriate mood/affect, cooperative - Neurologic Neurologic: CNII-XII intact, moves all extremities Results - Labs CBC & Chem 7: 01/17/22 04:25 01/17/22 04:25 Labs: Laboratory Last Values WBC 5.8 K/mm3 (4.5-11.0) 01/17/22 04:25 RBC 3.48 M/mm3 (3.65-5.03) L 01/17/22 04:25 Hgb 11.4 gm/dl (11.8-15.2) L 01/17/22 04:25 Hct 32.9 % (35.5-45.6) L 01/17/22 04:25 MCV 95 fl (84-94) H 01/17/22 04:25 MCH 33 pg (28-32) H 01/17/22 04:25 MCHC 35 % (32-34) H 01/17/22 04:25 RDW 13.4 % (13.2-15.2) 01/17/22 04:25 Plt Count 444 K/mm3 (140-440) H 01/17/22 04:25 Lymph % (Auto) 37.8 % (13.4-35.0) H 01/17/22 04:25 [place] % (Auto) 13.4 % (0.0-7.3) H 01/17/22 04:25 Eos % (Auto) 1.9 % (0.0-4.3) 01/17/22 04:25 Baso % (Auto) 0.3 % (0.0-1.8) 01/17/22 04:25 Lymph # (Auto) 2.2 K/mm3 (1.2-5.4) 01/17/22 04:25 [place] # (Auto) 0.8 K/mm3 (0.0-0.8) 01/17/22 04:25 Eos # (Auto) 0.1 K/mm3 (0.0-0.4) 01/17/22 04:25 Baso # (Auto) 0.0 K/mm3 (0.0-0.1) 01/17/22 04:25 Add Manual Diff Complete 12/30/21 04:49 Total Counted 100 12/30/21 04:49 Seg Neutrophils % 46.6 % (40.0-70.0) 01/17/22 04:25 Seg Neuts % (Manual) 83.0 % (40.0-70.0) H 12/30/21 04:49 Band Neutrophils % 2.0 % 12/30/21 04:49 Lymphocytes % (Manual) 5.0 % (13.4-35.0) L 12/30/21 04:49 Reactive Lymphs % (Man) 0 % 12/30/21 04:49 Monocytes % (Manual) 8.0 % (0.0-7.3) H 12/30/21 04:49 Eosinophils % (Manual) 0 % (0.0-4.3) 12/30/21 04:49 Basophils % (Manual) 0 % (0.0-1.8) 12/30/21 04:49 Metamyelocytes % 2.0 % 12/30/21 04:49 Myelocytes % 0 % 12/30/21 04:49 Promyelocytes % 0 % 12/30/21 04:49 Blast Cells % 0 % 12/30/21 04:49 Nucleated RBC % Not Reportable 12/30/21 04:49 Seg Neutrophils # 2.7 K/mm3 (1.8-7.7) 01/17/22 04:25 Seg Neutrophils # Man 17.1 K/mm3 (1.8-7.7) H 12/30/21 04:49 Band Neutrophils # 0.4 K/mm3 12/30/21 04:49 Lymphocytes # (Manual) 1.0 K/mm3 (1.2-5.4) L 12/30/21 04:49 Abs React Lymphs (Man) 0.0 K/mm3 12/30/21 04:49 Monocytes # (Manual) 1.6 K/mm3 (0.0-0.8) H 12/30/21 04:49 Eosinophils # (Manual) 0.0 K/mm3 (0.0-0.4) 12/30/21 04:49 Basophils # (Manual) 0.0 K/mm3 (0.0-0.1) 12/30/21 04:49 Metamyelocytes # 0.4 K/mm3 12/30/21 04:49 Myelocytes # 0.0 K/mm3 12/30/21 04:49 Promyelocytes # 0.0 K/mm3 12/30/21 04:49 Blast Cells # 0.0 K/mm3 12/30/21 04:49 WBC Morphology Not Reportable 12/30/21 04:49 Hypersegmented Neuts Not Reportable 12/30/21 04:49 Hyposegmented Neuts Rare 12/30/21 04:49 Hypogranular Neuts Not Reportable 12/30/21 04:49 Smudge Cells Not Reportable 12/30/21 04:49 Toxic Granulation Not Reportable 12/30/21 04:49 Toxic Vacuolation Not Reportable 12/30/21 04:49 Dohle Bodies Not Reportable 12/30/21 04:49 Pelger-Huet Anomaly Not Reportable 12/30/21 04:49 [place] Rods Not Reportable 12/30/21 04:49 Platelet Estimate Consistent w auto 12/30/21 04:49 Clumped Platelets Not Reportable 12/30/21 04:49 Plt Clumps, EDTA Not Reportable 12/30/21 04:49 Large Platelets Rare 12/30/21 04:49 Giant Platelets Not Reportable 12/30/21 04:49 Platelet Satelliting Not Reportable 12/30/21 04:49 Plt Morphology Comment Not Reportable 12/30/21 04:49 RBC Morphology Not Reportable 12/30/21 04:49 Dimorphic RBCs Not Reportable 12/30/21 04:49 Polychromasia Not Reportable 12/30/21 04:49 Hypochromasia Not Reportable 12/30/21 04:49 Poikilocytosis Not Reportable 12/30/21 04:49 Anisocytosis Rare 12/30/21 04:49 Microcytosis Not Reportable 12/30/21 04:49 Macrocytosis Rare 12/30/21 04:49 Spherocytes Not Reportable 12/30/21 04:49 Pappenheimer Bodies Not Reportable 12/30/21 04:49 Sickle Cells Not Reportable 12/30/21 04:49 Target Cells Not Reportable 12/30/21 04:49 Tear Drop Cells Not Reportable 12/30/21 04:49 Ovalocytes Not Reportable 12/30/21 04:49 Helmet Cells Not Reportable 12/30/21 04:49 [place] Bodies Not Reportable 12/30/21 04:49 [place]den Rings Not Reportable 12/30/21 04:49 Sebastien Cells Not Reportable 12/30/21 04:49 Bite Cells Not Reportable 12/30/21 04:49 Crenated Cell Not Reportable 12/30/21 04:49 Elliptocytes Not Reportable 12/30/21 04:49 Acanthocytes (Spur) Not Reportable 12/30/21 04:49 Rouleaux Not Reportable 12/30/21 04:49 Hemoglobin C Crystals Not Reportable 12/30/21 04:49 Schistocytes Not Reportable 12/30/21 04:49 Malaria parasites Not Reportable 12/30/21 04:49 [place] Bodies Not Reportable 12/30/21 04:49 Hem Pathologist Commnt No 12/30/21 04:49 PT 13.4 Sec. (12.2-14.9) 12/21/21 13:30 INR 0.92 (0.87-1.13) 12/21/21 13:30 APTT 25.8 Sec. (24.2-36.6) 12/21/21 13:30 Sodium 137 mmol/L (137-145) 01/17/22 04:25 Potassium 4.1 mmol/L (3.6-5.0) 01/17/22 04:25 Chloride 100.1 mmol/L (98-107) 01/17/22 04:25 Carbon Dioxide 25 mmol/L (22-30) 01/17/22 04:25 Anion Gap 16 mmol/L 01/17/22 04:25 BUN 8 mg/dL (9-20) L 01/17/22 04:25 Creatinine 0.6 mg/dL (0.8-1.3) L 01/17/22 04:25 Estimated GFR > 60 ml/min 01/17/22 04:25 BUN/Creatinine Ratio 13 % 01/17/22 04:25 Glucose 105 mg/dL (75-100) H 01/17/22 04:25 Lactic Acid 1.40 mmol/L (0.7-2.0) 12/21/21 13:30 Calcium 9.3 mg/dL (8.4-10.2) 01/17/22 04:25 Phosphorus 2.80 mg/dL (2.5-4.5) 12/24/21 05:17 Magnesium 1.80 mg/dL (1.7-2.3) 01/12/22 06:06 Total Bilirubin 0.50 mg/dL (0.1-1.2) 01/12/22 06:06 Direct Bilirubin < 0.2 mg/dL (0-0.2) 01/03/22 04:00 Indirect Bilirubin 0.3 mg/dL 01/03/22 04:00 AST 29 units/L (5-40) 01/12/22 06:06 ALT 55 units/L (7-56) 01/12/22 06:06 Alkaline Phosphatase 81 units/L (35-129) 01/12/22 06:06 Ammonia 37.0 umol/L (25-60) 12/23/21 04:49 Total Creatine Kinase 1001 units/L (55-170) H 01/06/22 08:55 Total Protein 6.4 g/dL (6.3-8.2) 01/12/22 06:06 Albumin 2.9 g/dL (3.9-5) L 01/12/22 06:06 Albumin/Globulin Ratio 0.8 % 01/12/22 06:06 Amylase 25 units/L (27-131) L 12/23/21 04:49 Lipase 10 units/L (13-60) L 12/23/21 04:49 Coronavirus (PCR) Negative (Negative) 12/22/21 11:40 Hepatitis A IgM Ab Nonreactive (NonReactive) 12/21/21 13:30 Hep Bs Antigen Non-reactive (Negative) 12/21/21 13:30 Hep B Core IgM Ab Non-reactive (NonReactive) 12/21/21 13:30 Hepatitis C Antibody Non-reactive (NonReactive) 12/21/21 13:30 HIV 1&2 Antibody Rapid Non react (Non React) 12/22/21 16:42 HIV P24 Antigen Non react (Non React) 12/22/21 16:42 Kaur/IV: Voiding Method Urinal Active Medications - Current Medications Current Medications: Generic Name Dose Route Start Last Admin Trade Name Freq PRN Reason Stop Dose Admin Acetaminophen 650 mg 01/04/22 22:14 01/12/22 01:36 Acetaminophen 325 Mg Tab PO 650 mg Q6H PRN Administration Pain, Mild (1-3) Albuterol 2.5 mg 12/21/21 06:15 Albuterol 2.5 Mg/3 Ml Nebu IH Q3HRT PRN Shortness Of Breath Diphenhydramine HCl 25 mg 12/21/21 06:24 01/10/22 18:40 Diphenhydramine 50 Mg/Ml Vial IV 25 mg Q6H PRN Administration Skin Irritation Docusate Sodium 100 mg 12/23/21 22:00 01/17/22 22:09 Docusate Sodium 100 Mg Cap PO 100 mg BID VLADIMIR Administration Famotidine 20 mg 12/26/21 10:00 01/17/22 22:09 Famotidine 20 Mg Tab PO 20 mg BID VLADIMIR Administration Gabapentin 300 mg 01/05/22 08:00 01/17/22 22:09 Gabapentin 300 Mg Cap PO 300 mg TID@0800,1600,2200 VLADIMIR Administration Heparin Sodium (Porcine) 5,000 unit 12/21/21 10:00 01/17/22 22:09 Heparin 5,000 Unit/1 Ml Vial SUB-Q 5,000 unit Q12HR VLADIMIR Administration Hydralazine HCl 10 mg 12/22/21 18:31 12/22/21 18:50 Hydralazine 20 Mg/1 Ml Inj IV 10 mg Q3HR PRN Administration Hypertension Hydromorphone HCl 0.5 mg 12/21/21 06:15 01/18/22 02:20 Hydromorphone 1 Mg/1 Ml Inj IV 0.5 mg Q3H PRN Administration Pain , Severe (7-10) Ondansetron HCl 4 mg 12/21/21 06:15 01/12/22 22:29 Ondansetron 4 Mg/2 Ml Inj IV 4 mg Q8H PRN Administration Nausea And Vomiting Oxycodone/Acetaminophen 1 tab 01/07/22 10:57 01/17/22 09:05 Oxycodone /Acetaminophen 5-325mg Tab PO 1 tab Q6H PRN Administration Pain, Moderate (4-6) Sodium Chloride 10 ml 12/21/21 10:00 01/17/22 22:10 Sodium Chloride 0.9% 10 Ml Flush Syringe IV 10 ml BID VLADIMIR Administration Sodium Chloride 10 ml 12/21/21 06:15 01/12/22 01:33 Sodium Chloride 0.9% 10 Ml Flush Syringe IV 10 ml PRN PRN Administration LINE FLUSH Sodium Chloride 500 ml 01/10/22 19:10 01/10/22 19:32 Sodium Chloride 0.9% Irr 500 Ml Bottle IR 500 ml DIRECT PRN Administration Wound Care Sodium Hypochlorite 1 applic 01/11/22 13:00 01/17/22 11:16 Sodium Hypochlorite, Dakin's Full Strength (0.5%) 473 Ml Topical Soln TP 1 1000units DAILY VLADIMIR Administration Valsartan 160 mg 12/22/21 22:00 01/17/22 11:17 Valsartan 160mg Tab PO 160 mg DAILY VLADIMIR Administration Nutrition/Malnutrition Assess - Dietary Evaluation Nutrition/Malnutrition Findings: Nutrition Notes Start: 12/28/21 16:45 Freq: Status: Active Protocol: Document 01/06/22 14:21 OPAL (Rec: 01/06/22 14:46 OPAL [id number]) Nutrition Notes Initial or Follow up Reassessment Current Diagnosis Hypertension Other Pertinent Diagnosis Rabdomyolysis, Liver Failure, s/p L-LE 4 Compartment Fasciotomy w/Debridem. Current Diet Regular Diet + Dietary Supplements. (since B 12/29). Labs/Tests 01/06: BUN 5, Crea 0.7. Pertinent Medications 01/06: Nutritionally unremarkable. Height 5 ft 6 in Weight 86.183 kg [place] Body Weight (kg) 64.54 BMI 30.7 Weight change and time frame No body weight change reporterd in 9 days. Weight Status Obese Subjective/Other Information RD consult for routine F/U on dietary advancement. Pt's PO intake of meals has been Good (100%), according to ADL notes. Pt is on Room Air, O2 saturation @ 96%, according to Physical Assessment History notes. Pt presents L-LE Pitting Edema 2+, according to Physical Assessment History notes. Pt presents L-LE Vascular Wound with WoundVAC since , according to Physical Assessment History notes. Event on 01/03, Pt suffered a syncope during PT session, according to Progress notes. Pt is clearedd for discharge, it is pending due to several social issues, according to Progress notes. Percent of energy/protein needs met: Prescribed Regular Diet provides for energy/protein needs (2,289 Kcal/89 g) during LOS Burn Absent Trauma Absent GI Symptoms None Food Allergy No Skin Integrity/Comment L-LE Vascular Wound Current % PO Good (75-100%) Minimum of two criteria No #1 Nutrition Diagnosis Increased nutrient needs ( specify in comment below) Comments: Protein to support wound healing processes. Diagnosis Progress(for reassessment Continues documentation) Is patient on ventilator? No Is Patient Ambulatory and/or Out of Bed No REE-([facility] Jeor-confined to bed) 2083.920 Kcal/Kg value to use for calculation 19 Approximate Energy Requirements Using 1637 kcal/Kg Calculation Used for Recommendations Kcal/kg Additional Notes Protein: 1.25-1.5 g/Kg AdjBW; 85-114 g/day. Fluids: 1 ml/Kcal, or as per MD. Nutrition Intervention Change Diet Order: Continue Regular Diet. Add Supplement/Snack (indicate name/kcal Continue 28.8 g pkt Calvin; BID /protein ) . Provides kCal: 190 Provides Protein (gm) 5 Goal #1 Support, through dietary supplementation, wound healing processes during LOS. Goal #2 Adjust the dietary intervention to better serve Pt's needs and clinical conditions during LOS. Goal #3 Maintain body weight within +/ -3% of admission body weight during LOS. Revisit per MD consult or patient Sign Off request: Additional Comments Continue monitoring food tolerance, %PO intake of meals , and BM.
[2022-01-18] MEDS: VALSARTAN 160MG TAB PO SCH (09:18)
[2022-01-18] MEDS: DOCUSATE SODIUM 100 MG CAP PO SCH ×2 (09:18→21:46)
[2022-01-18] MEDS: HEPARIN 5,000 UNIT/1 ML VIAL SUB-Q SCH ×2 (09:19→21:46)
[2022-01-18] MEDS: FAMOTIDINE 20 MG TAB PO SCH ×2 (09:19→21:45)
[2022-01-18] MEDS: SODIUM HYPOCHLORITE, DAKIN'S FULL STRENGTH (0.5%) 473 ML TOPICAL SOLN TP SCH (10:00)
[2022-01-19] MEDS: oxyCODONE /ACETAMINOPHEN 5-325MG TAB PO PRN (01:30)
[2022-01-19] MEDS: GABAPENTIN 300 MG CAP PO SCH ×3 (08:48→21:31)
[2022-01-19] MEDS: HYDROmorphone 1 MG/1 ML INJ IV PRN ×3 (08:54→21:39)
[2022-01-19] MEDS: VALSARTAN 160MG TAB PO SCH (11:42)
[2022-01-19] MEDS: DOCUSATE SODIUM 100 MG CAP PO SCH ×2 (11:49→21:31)
[2022-01-19] MEDS: HEPARIN 5,000 UNIT/1 ML VIAL SUB-Q SCH ×2 (11:49→21:32)
[2022-01-19] MEDS: FAMOTIDINE 20 MG TAB PO SCH ×2 (11:52→21:31)
[2022-01-19] MEDS: SODIUM HYPOCHLORITE, DAKIN'S FULL STRENGTH (0.5%) 473 ML TOPICAL SOLN TP SCH (16:26)
--- NOTE | 2022-01-19 18:59 | Progress Note ---
Assessment and Plan Assessment and plan: This is a 36 year old transgendered female undergoing gender transformation with silicone injection to buttocks ([place] 2016) and breast implants, heavy drinker on the weekends (bottle of vodka) who presented to [facility] on 12/21 because of adverse drug reaction after reportedly self administration of rocephin and PCN for sore throat. Patient reportedly collapsed while checking in to the emergency department, has complains of severe 10 out of 10 pain in left thigh and has noticeable mottling of skin in thigh and left lower abdomen. Patient underwent a CT of the left leg which showed possible cellulitis with no drainable fluid collection and was started on empiric antibiotics. Patient admitted to the hospital service with diagnosis of acute liver failure, rhabdomyolysis, s/p 4 compartment fasciotomy to left lower extremity. Patient received antibiotics, wound care, wound VAC treatment and was planning to be discharged However developed a wound infection, wound VAC was removed, medical personnel aggressively treating the patient. Discharge was held Hospital course to date: 12/21: Venous ultrasound shows no DVT, Vascular surgery consulted who performed a fasciotomy and plan to transfer patient to [facility] [place] post intervention. Neurology consulted 12/22: Transfer to ICU, GI and neurology consulted. 12/23: Patient will be transferred back to the floor from ICU. Her liver enzymes and creatinine are trending down. Will be started on gabapentin per neurology recommendations and antibiotics discontinued. 12/24: Continue supportive care. CPK slowly improving. Vascular plans for closure of fasciotomy early next week. PT OT evaluation and treatment closure done. Continue wound management. No evidence of withdrawal noted at this time. Continue to monitor LFTs which are also slightly improving. Plan discussed in detail with the patient who verbalized understanding 12/25: Patient seen and examined clinically stable continues to show some improvement. Closure of fasciotomy planned for tomorrow. Renal function is improving. CK ordered and pending 12/26: Patient seen and examined, wbc mildly elevated likely secondary to steroids, will change to po for two additional days and stop, benefit probably already achieved, continue wound dressing, sensory function improved, awaiting wound vac and closure. Patient advised on clinically progress. 12/27: Patient seen and examined awaiting her vascular surgery for closure of fasciotomy. CK is decreasing less than 9000 today. We will continue aggressive IV fluids until we have the resolution below 5000. LFTs on the downward trend also. Leukocytosis appears to have peaked steroids was changed to oral for 2 additional days today is 1 of 2.. Plan of care discussed in detail with the patient who verbalized understanding. 12/28: Left lower extremity compartment syndrome status post fasciotomies. Ca use is still unclear and may represent some allergic reaction. Motor function is unchanged from original exam. Sensory function has improved with full sensation of the foot.vascular surgery to place wound vacs on the leg today. CK improved to the 8000 range today 12/29: Patient underwent excisional debridement of muscle and soft tissue from left leg wound yesterday. Patient also had wound VAC placement left leg fasciotomy incisions. The patient had moderate amount of superficial necrotic muscle in the anterior lateral compartments with minimal amount of superficial necrotic muscle in the posterior compartment. Follow-up culture results. CK levels have improved to 6900 range. AST/ALT continue to trend downward. 12/30: I discussed the case with Dr. Lopez who recommends home wound VAC as well as physical therapy. I also discussed these needs with case management who was attempting to arrange for discharge planning. CK continues to improve with levels in the 4000 range. 12/31: Still awaiting for home wound VAC arrangements to be made. Leukocytosis is much improved down to 13,900 today. LFTs continue to trend down to normal range. CK levels still in the 4000 range. Nephrology has signed off. Anticipate discharge later today or in a.m. 01/01: Still awaiting for home wound VAC arrangements to be made. Laboratories continue to include including LFTs, CK and leukocytosis. 01/02: Still awaiting for home wound VAC arrangements to be made. 01/03: Patient had an episode of syncope while working with PT today. Nurse reports patient lost consciousness for a few seconds and was helped back to the bed. Patient's blood pressure was noted to be hypotensive/orthostatic. We will bolus 500 normal saline IV fluid and monitor orthostatics. Case management reports that wound VAC should be delivered today. LFTs continue to trend down to normal range. CK levels still in the 2000 range. Nephrology has signed off. Anticipate discharge in a.m. given the syncope and once wound VAC arranged. Patient with low-grade temp. We will monitor. 01/04; patient is anxious to go home, wound VAC is delivered to the bedside, continue wound care Multiple social issues, DC planning per case management, left lower extremity Doppler negative for DVT 01/05; discharge planning, multiple social issues 01/06; continue current management, wound VAC in place, DC planning issues 01/07; discharge planning per case management, setting up wound VAC, setting up outpatient wound care Setting up follow-up visits with physicians, patient has multiple social issues and no payer source Continue current management discharge when medically stable 01/08; patient's LFTs are trending down, continue current management Wound VAC care, wound VAC change per instructions, wound care as indicated Discharge planning per case management 01/09; patient is medically stable for discharge Awaiting discharge planning coordinating with wound VAC and wound care Post discharge follow-up visit with vascular Dr. Lenard Kimble on 01/28/2020 at 10 AM 01/10; vascular /IR Dr. Swann evaluation and recommendations noted and appreciated Patient's wound had some peculiar infection smell, started on doxycycline And recommended aggressive wound care. 01/11; iron loan review manager talk to Dr. Swann regarding the treatment and discharge planning Dr. Swann informed that wound care should follow regularly and aggressively manage the wounds And once the wounds show significant healing wound VAC can be placed and patient may be discharged home with home health. Outpatient wound clinic 3 times a week and follow-up with vascular IR per schedule 01/12: Continue dressing change per wound care. Patient initiated on doxyc ycline, surgical culture is growing bacillus. Discharge planning per vascular recommendation once wound VAC is placed. Continue supportive care. 01/13: Continue regular wound care, continue empiric antibiotic, wait on culture sensitivity. Discharge planning per vascular surgery. 01/14: continue empiric antibiotic, wait on culture sensitivity. Discharge planning per vascular surgery. Continue regular wound care, 01/15: Continue empiric antibiotics, wait for better wound healing to place wound VAC, plan to DC patient once wound VAC will be placed. consult surgery for debridement. 01/16: Discussed with Dr. Araya yesterday, if patient need any debridement possibly will be done on next week Monday. Continue wound care And antibiotics 01/17: Noted General surgery recommendation, patient wound is too large and deeply exposed to place on wound VAC. General surgery recommending regular wound care without wound VAC. Will await for vascular recommendation for discharge planning. 01/18; DC planning per case management, per vascular and general surgeon Multiple social issues 01/19; continue current management, DC planning per case management, patient is medically stable for discharge Multiple social issues Assessment and plan; --Compartment syndrome to LLE -Vascular surgery consulted, appreciate recommendations -s/p self admin of IM abx to [facility] -c/o pain, decreased sensation, pulses were dopplarable, paralysis, mottled skin -s/p 4 compartment tracheotomy on 12/21 with vascular surgery -Bilateral lower extremity Doppler ultrasound showed no DVT -Left lower extremity CT with contrast showed appearance of posterior soft tissue complex cellulitis with small subcutaneous lymph nodes, no drainable fluid collections present, contusion could have similar appearance -Bilateral lower extremity arterial duplex showed no significant lower extremity peripheral artery disease -Normal ABIs Patient received wound VAC, with aggressive management and frequent changing. And with supportive care Patient was being prepared to discharge with home health and outpatient wound care 3 times a week. However patient's wound got significantly infected, wound VAC was removed, wound care personal consulted and they are aggressively treating the wounds. Once the wound infection improves, patient may receive wound VAC and then patient may be discharged home with follow-up visit with Dr. Lenard Kimble Outpatient wound care 3 times a week --Peripheral neuropathy Continue gabapentin Neurology evaluated --HTN Moderate control, continue current antihypertensives As needed medications --Rhabdomyolysis; Improved from 95,000 CK -1001 week ago Closely monitor IV hydration --acute kidney injury with vasomotor nephropathy now resolved Monitor renal function Avoid nephrotoxin. gentle hydration as needed DC planning per case management Possible home health, outpatient wound care . Patient has no resources, case management assisting Disposition; continue aggressive wound care, discharge pending per CM Plan of care reviewed with the patient and her nurse History Interval history: I have seen and examined the patient at the bedside Patient looks tired and weak, anxious to go home Receiving wound care left lower extremity [employer] assisting with discharge planning Signs noted Hospitalist Physical - Constitutional Vitals: Temp Pulse Resp BP Pulse Ox 98.9 F 86 16 103/69 95 01/19/22 11:28 01/19/22 11:28 01/19/22 11:28 01/19/22 11:28 01/19/22 11:28 General appearance: Present: no acute distress, well-nourished, obese - EENT Eyes: Present: PERRL, EOM intact - Neck Neck: Present: supple, normal ROM - Respiratory Respiratory effort: normal Respiratory: bilateral: diminished, negative: rales, rhonchi, wheezing - Cardiovascular Rhythm: regular Heart Sounds: Present: S1 & S2 - Extremities Extremities: no ischemia, No edema, abnormal (Wound dressing in place) - Abdominal General gastrointestinal: soft, non-tender, non-distended, normal bowel sounds - Integumentary Integumentary: Present: clear, warm - Psychiatric Psychiatric: appropriate mood/affect, cooperative - Neurologic Neurologic: CNII-XII intact, moves all extremities Results - Labs CBC & Chem 7: 01/17/22 04:25 01/17/22 04:25 Labs: Laboratory Last Values WBC 5.8 K/mm3 (4.5-11.0) 01/17/22 04:25 RBC 3.48 M/mm3 (3.65-5.03) L 01/17/22 04:25 Hgb 11.4 gm/dl (11.8-15.2) L 01/17/22 04:25 Hct 32.9 % (35.5-45.6) L 01/17/22 04:25 MCV 95 fl (84-94) H 01/17/22 04:25 MCH 33 pg (28-32) H 01/17/22 04:25 MCHC 35 % (32-34) H 01/17/22 04:25 RDW 13.4 % (13.2-15.2) 01/17/22 04:25 Plt Count 444 K/mm3 (140-440) H 01/17/22 04:25 Lymph % (Auto) 37.8 % (13.4-35.0) H 01/17/22 04:25 Osborne % (Auto) 13.4 % (0.0-7.3) H 01/17/22 04:25 Eos % (Auto) 1.9 % (0.0-4.3) 01/17/22 04:25 Baso % (Auto) 0.3 % (0.0-1.8) 01/17/22 04:25 Lymph # (Auto) 2.2 K/mm3 (1.2-5.4) 01/17/22 04:25 Osborne # (Auto) 0.8 K/mm3 (0.0-0.8) 01/17/22 04:25 Eos # (Auto) 0.1 K/mm3 (0.0-0.4) 01/17/22 04:25 Baso # (Auto) 0.0 K/mm3 (0.0-0.1) 01/17/22 04:25 Add Manual Diff Complete 12/30/21 04:49 Total Counted 100 12/30/21 04:49 Seg Neutrophils % 46.6 % (40.0-70.0) 01/17/22 04:25 Seg Neuts % (Manual) 83.0 % (40.0-70.0) H 12/30/21 04:49 Band Neutrophils % 2.0 % 12/30/21 04:49 Lymphocytes % (Manual) 5.0 % (13.4-35.0) L 12/30/21 04:49 Reactive Lymphs % (Man) 0 % 12/30/21 04:49 Monocytes % (Manual) 8.0 % (0.0-7.3) H 12/30/21 04:49 Eosinophils % (Manual) 0 % (0.0-4.3) 12/30/21 04:49 Basophils % (Manual) 0 % (0.0-1.8) 12/30/21 04:49 Metamyelocytes % 2.0 % 12/30/21 04:49 Myelocytes % 0 % 12/30/21 04:49 Promyelocytes % 0 % 12/30/21 04:49 Blast Cells % 0 % 12/30/21 04:49 Nucleated RBC % Not Reportable 12/30/21 04:49 Seg Neutrophils # 2.7 K/mm3 (1.8-7.7) 01/17/22 04:25 Seg Neutrophils # Man 17.1 K/mm3 (1.8-7.7) H 12/30/21 04:49 Band Neutrophils # 0.4 K/mm3 12/30/21 04:49 Lymphocytes # (Manual) 1.0 K/mm3 (1.2-5.4) L 12/30/21 04:49 Abs React Lymphs (Man) 0.0 K/mm3 12/30/21 04:49 Monocytes # (Manual) 1.6 K/mm3 (0.0-0.8) H 12/30/21 04:49 Eosinophils # (Manual) 0.0 K/mm3 (0.0-0.4) 12/30/21 04:49 Basophils # (Manual) 0.0 K/mm3 (0.0-0.1) 12/30/21 04:49 Metamyelocytes # 0.4 K/mm3 12/30/21 04:49 Myelocytes # 0.0 K/mm3 12/30/21 04:49 Promyelocytes # 0.0 K/mm3 12/30/21 04:49 Blast Cells # 0.0 K/mm3 12/30/21 04:49 WBC Morphology Not Reportable 12/30/21 04:49 Hypersegmented Neuts Not Reportable 12/30/21 04:49 Hyposegmented Neuts Rare 12/30/21 04:49 Hypogranular Neuts Not Reportable 12/30/21 04:49 Smudge Cells Not Reportable 12/30/21 04:49 Toxic Granulation Not Reportable 12/30/21 04:49 Toxic Vacuolation Not Reportable 12/30/21 04:49 Dohle Bodies Not Reportable 12/30/21 04:49 Pelger-Huet Anomaly Not Reportable 12/30/21 04:49 [place] Rods Not Reportable 12/30/21 04:49 Platelet Estimate Consistent w auto 12/30/21 04:49 Clumped Platelets Not Reportable 12/30/21 04:49 Plt Clumps, EDTA Not Reportable 12/30/21 04:49 Large Platelets Rare 12/30/21 04:49 Giant Platelets Not Reportable 12/30/21 04:49 Platelet Satelliting Not Reportable 12/30/21 04:49 Plt Morphology Comment Not Reportable 12/30/21 04:49 RBC Morphology Not Reportable 12/30/21 04:49 Dimorphic RBCs Not Reportable 12/30/21 04:49 Polychromasia Not Reportable 12/30/21 04:49 Hypochromasia Not Reportable 12/30/21 04:49 Poikilocytosis Not Reportable 12/30/21 04:49 Anisocytosis Rare 12/30/21 04:49 Microcytosis Not Reportable 12/30/21 04:49 Macrocytosis Rare 12/30/21 04:49 Spherocytes Not Reportable 12/30/21 04:49 Pappenheimer Bodies Not Reportable 12/30/21 04:49 Sickle Cells Not Reportable 12/30/21 04:49 Target Cells Not Reportable 12/30/21 04:49 Tear Drop Cells Not Reportable 12/30/21 04:49 Ovalocytes Not Reportable 12/30/21 04:49 Helmet Cells Not Reportable 12/30/21 04:49 [place] Bodies Not Reportable 12/30/21 04:49 [place] Rings Not Reportable 12/30/21 04:49 [place] Cells Not Reportable 12/30/21 04:49 Bite Cells Not Reportable 12/30/21 04:49 Crenated Cell Not Reportable 12/30/21 04:49 Elliptocytes Not Reportable 12/30/21 04:49 Acanthocytes (Spur) Not Reportable 12/30/21 04:49 Rouleaux Not Reportable 12/30/21 04:49 Hemoglobin C Crystals Not Reportable 12/30/21 04:49 Schistocytes Not Reportable 12/30/21 04:49 Malaria parasites Not Reportable 12/30/21 04:49 [place] Bodies Not Reportable 12/30/21 04:49 Hem Pathologist Commnt No 12/30/21 04:49 PT 13.4 Sec. (12.2-14.9) 12/21/21 13:30 INR 0.92 (0.87-1.13) 12/21/21 13:30 APTT 25.8 Sec. (24.2-36.6) 12/21/21 13:30 Sodium 137 mmol/L (137-145) 01/17/22 04:25 Potassium 4.1 mmol/L (3.6-5.0) 01/17/22 04:25 Chloride 100.1 mmol/L (98-107) 01/17/22 04:25 Carbon Dioxide 25 mmol/L (22-30) 01/17/22 04:25 Anion Gap 16 mmol/L 01/17/22 04:25 BUN 8 mg/dL (9-20) L 01/17/22 04:25 Creatinine 0.6 mg/dL (0.8-1.3) L 01/17/22 04:25 Estimated GFR > 60 ml/min 01/17/22 04:25 BUN/Creatinine Ratio 13 % 01/17/22 04:25 Glucose 105 mg/dL (75-100) H 01/17/22 04:25 POC Glucose 121 mg/dL (70-105) H 01/19/22 11:26 Lactic Acid 1.40 mmol/L (0.7-2.0) 12/21/21 13:30 Calcium 9.3 mg/dL (8.4-10.2) 01/17/22 04:25 Phosphorus 2.80 mg/dL (2.5-4.5) 12/24/21 05:17 Magnesium 1.80 mg/dL (1.7-2.3) 01/12/22 06:06 Total Bilirubin 0.50 mg/dL (0.1-1.2) 01/12/22 06:06 Direct Bilirubin < 0.2 mg/dL (0-0.2) 01/03/22 04:00 Indirect Bilirubin 0.3 mg/dL 01/03/22 04:00 AST 29 units/L (5-40) 01/12/22 06:06 ALT 55 units/L (7-56) 01/12/22 06:06 Alkaline Phosphatase 81 units/L (35-129) 01/12/22 06:06 Ammonia 37.0 umol/L (25-60) 12/23/21 04:49 Total Creatine Kinase 1001 units/L (55-170) H 01/06/22 08:55 Total Protein 6.4 g/dL (6.3-8.2) 01/12/22 06:06 Albumin 2.9 g/dL (3.9-5) L 01/12/22 06:06 Albumin/Globulin Ratio 0.8 % 01/12/22 06:06 Amylase 25 units/L (27-131) L 12/23/21 04:49 Lipase 10 units/L (13-60) L 12/23/21 04:49 Coronavirus (PCR) Negative (Negative) 12/22/21 11:40 Hepatitis A IgM Ab Nonreactive (NonReactive) 12/21/21 13:30 Hep Bs Antigen Non-reactive (Negative) 12/21/21 13:30 Hep B Core IgM Ab Non-reactive (NonReactive) 12/21/21 13:30 Hepatitis C Antibody Non-reactive (NonReactive) 12/21/21 13:30 HIV 1&2 Antibody Rapid Non react (Non React) 12/22/21 16:42 HIV P24 Antigen Non react (Non React) 12/22/21 16:42 Kaur/IV: Voiding Method Urinal Active Medications - Current Medications Current Medications: Generic Name Dose Route Start Last Admin Trade Name Freq PRN Reason Stop Dose Admin Acetaminophen 650 mg 01/04/22 22:14 01/12/22 01:36 Acetaminophen 325 Mg Tab PO 650 mg Q6H PRN Administration Pain, Mild (1-3) Albuterol 2.5 mg 12/21/21 06:15 Albuterol 2.5 Mg/3 Ml Nebu IH Q3HRT PRN Shortness Of Breath Diphenhydramine HCl 25 mg 12/21/21 06:24 01/10/22 18:40 Diphenhydramine 50 Mg/Ml Vial IV 25 mg Q6H PRN Administration Skin Irritation Docusate Sodium 100 mg 12/23/21 22:00 01/19/22 11:49 Docusate Sodium 100 Mg Cap PO 100 mg BID VLADIMIR Administration Famotidine 20 mg 12/26/21 10:00 01/19/22 11:52 Famotidine 20 Mg Tab PO 20 mg BID VLDAIMIR Administration Gabapentin 300 mg 01/05/22 08:00 01/19/22 16:03 Gabapentin 300 Mg Cap PO 300 mg TID@0800,1600,2200 VLADIMIR Administration Heparin Sodium (Porcine) 5,000 unit 12/21/21 10:00 01/19/22 11:49 Heparin 5,000 Unit/1 Ml Vial SUB-Q 5,000 unit Q12HR VLADIMIR Administration Hydralazine HCl 10 mg 12/22/21 18:31 12/22/21 18:50 Hydralazine 20 Mg/1 Ml Inj IV 10 mg Q3HR PRN Administration Hypertension Hydromorphone HCl 0.5 mg 12/21/21 06:15 01/19/22 16:03 Hydromorphone 1 Mg/1 Ml Inj IV 0.5 mg Q3H PRN Administration Pain , Severe (7-10) Ondansetron HCl 4 mg 12/21/21 06:15 01/12/22 22:29 Ondansetron 4 Mg/2 Ml Inj IV 4 mg Q8H PRN Administration Nausea And Vomiting Oxycodone/Acetaminophen 1 tab 01/07/22 10:57 01/19/22 01:30 Oxycodone /Acetaminophen 5-325mg Tab PO 1 tab Q6H PRN Administration Pain, Moderate (4-6) Sodium Chloride 10 ml 12/21/21 10:00 01/19/22 11:51 Sodium Chloride 0.9% 10 Ml Flush Syringe IV 10 ml BID VLADIMIR Administration Sodium Chloride 10 ml 12/21/21 06:15 01/12/22 01:33 Sodium Chloride 0.9% 10 Ml Flush Syringe IV 10 ml PRN PRN Administration LINE FLUSH Sodium Chloride 500 ml 01/10/22 19:10 01/10/22 19:32 Sodium Chloride 0.9% Irr 500 Ml Bottle IR 500 ml DIRECT PRN Administration Wound Care Sodium Hypochlorite 1 applic 01/11/22 13:00 01/19/22 16:26 Sodium Hypochlorite, Dakin's Full Strength (0.5%) 473 Ml Topical Soln TP 1 1000units DAILY VLADIMIR Administration Valsartan 160 mg 12/22/21 22:00 01/19/22 11:42 Valsartan 160mg Tab PO Not Given DAILY VLADIMIR Nutrition/Malnutrition Assess - Dietary Evaluation Nutrition/Malnutrition Findings: Nutrition Notes Start: 12/28/21 16:45 Freq: Status: Active Protocol: Document 01/06/22 14:21 OPAL (Rec: 01/06/22 14:46 OPAL [email or web address]) Nutrition Notes Initial or Follow up Reassessment Current Diagnosis Hypertension Other Pertinent Diagnosis Rabdomyolysis, Liver Failure, s/p L-LE 4 Compartment Fasciotomy w/Debridem. Current Diet Regular Diet + Dietary Supplements. (since B 12/29). Labs/Tests 01/06: BUN 5, Crea 0.7. Pertinent Medications 01/06: Nutritionally unremarkable. Height 5 ft 6 in Weight 86.183 kg [place] Body Weight (kg) 64.54 BMI 30.7 Weight change and time frame No body weight change reporterd in 9 days. Weight Status Obese Subjective/Other Information RD consult for routine F/U on dietary advancement. Pt's PO intake of meals has been Good (100%), according to ADL notes. Pt is on Room Air, O2 saturation @ 96%, according to Physical Assessment History notes. Pt presents L-LE Pitting Edema 2+, according to Physical Assessment History notes. Pt presents L-LE Vascular Wound with WoundVAC since , according to Physical Assessment History notes. Event on 01/03, Pt suffered a syncope during PT session, according to Progress notes. Pt is clearedd for discharge, it is pending due to several social issues, according to Progress notes. Percent of energy/protein needs met: Prescribed Regular Diet provides for energy/protein needs (2,289 Kcal/89 g) during LOS Burn Absent Trauma Absent GI Symptoms None Food Allergy No Skin Integrity/Comment L-LE Vascular Wound Current % PO Good (75-100%) Minimum of two criteria No #1 Nutrition Diagnosis Increased nutrient needs ( specify in comment below) Comments: Protein to support wound healing processes. Diagnosis Progress(for reassessment Continues documentation) Is patient on ventilator? No Is Patient Ambulatory and/or Out of Bed No REE-([facility]-confined to bed) 2083.920 Kcal/Kg value to use for calculation 19 Approximate Energy Requirements Using 1637 kcal/Kg Calculation Used for Recommendations Kcal/kg Additional Notes Protein: 1.25-1.5 g/Kg AdjBW; 85-114 g/day. Fluids: 1 ml/Kcal, or as per MD. Nutrition Intervention Change Diet Order: Continue Regular Diet. Add Supplement/Snack (indicate name/kcal Continue 28.8 g pkt Calvin; BID /protein ) . Provides kCal: 190 Provides Protein (gm) 5 Goal #1 Support, through dietary supplementation, wound healing processes during LOS. Goal #2 Adjust the dietary intervention to better serve Pt's needs and clinical conditions during LOS. Goal #3 Maintain body weight within +/ -3% of admission body weight during LOS. Revisit per MD consult or patient Sign Off request: Additional Comments Continue monitoring food tolerance, %PO intake of meals , and BM.
[2022-01-20 06:09] LABS: Blood Urea Nitrogen 11 mg/dL (9-20); Calcium 9.3 mg/dL (8.4-10.2); Hemolysis Index 7
[2022-01-20 06:17] LABS: BUN/Creatinine Ratio 16
[2022-01-20] MEDS: GABAPENTIN 300 MG CAP PO SCH ×3 (07:56→22:17)
[2022-01-20] MEDS: HEPARIN 5,000 UNIT/1 ML VIAL SUB-Q SCH ×2 (09:00→22:17)
[2022-01-20] MEDS: HYDROmorphone 1 MG/1 ML INJ IV PRN ×2 (09:01→19:37)
[2022-01-20] MEDS: FAMOTIDINE 20 MG TAB PO SCH ×2 (09:02→22:16)
[2022-01-20] MEDS: VALSARTAN 160MG TAB PO SCH (09:02)
[2022-01-20] MEDS: DOCUSATE SODIUM 100 MG CAP PO SCH ×2 (09:02→22:17)
[2022-01-20] MEDS: SODIUM HYPOCHLORITE, DAKIN'S FULL STRENGTH (0.5%) 473 ML TOPICAL SOLN TP SCH (09:03)
--- NOTE | 2022-01-20 14:05 | Progress Note ---
Assessment and Plan Assessment and plan: This is a 36 year old transgendered female undergoing gender transformation with silicone injection to buttocks ([place] 2016) and breast implants, heavy drinker on the weekends (bottle of vodka) who presented to [facility] on 12/21 because of adverse drug reaction after reportedly self administration of rocephin and PCN for sore throat. Patient reportedly collapsed while checking in to the emergency department, had complains of severe 10 out of 10 pain in the left thigh and had noticeable mottling of skin on the thigh and left lower abdomen. Patient underwent a CT of the left leg which showed possible cellulitis with no drainable fluid collection and was started on empiric antibiotics. Patient admitted to the hospital service with diagnosis of acute liver failure, rhabdomyolysis, and compartment syndrome, evaluated by vascular/IR, s/p 4 compartment fasciotomy to left lower extremity. Patient received antibiotics, wound care, wound VAC treatment and was planning to be discharged However developed a wound infection, wound VAC was removed, medical personnel aggressively treating the patient. Discharge was held. Outpatient wound care was scheduled, wound care personal have evaluated on 01/18/2022, request wound care personal to educate the patient and the family in detail with the instructions[preferably written instructions] prior to discharge if possible. Assessment and plan; --Compartment syndrome to LLE -Vascular surgery consulted, appreciate recommendations -s/p self admin of IM abx to midthigh -c/o pain, decreased sensation, pulses were dopplarable, paralysis, mottled skin -s/p 4 compartment tracheotomy on 12/21 with vascular surgery -Bilateral lower extremity Doppler ultrasound showed no DVT -Left lower extremity CT with contrast showed appearance of posterior soft tissue complex cellulitis with small subcutaneous lymph nodes, no drainable fluid collections present, contusion could have similar appearance -Bilateral lower extremity arterial duplex showed no significant lower extremity peripheral artery disease -Normal ABIs Patient received wound VAC, with aggressive management and frequent changing. And with supportive care Patient was being prepared to discharge with home health and outpatient wound care 3 times a week. However patient's wound got significantly infected, wound VAC was removed, wound care personal consulted and they are aggressively treating the wounds. Once the wound infection improves, patient may receive wound VAC and then patient may be discharged home with follow-up visit with Dr. Lenard Kimble Outpatient wound care 3 times a week --Peripheral neuropathy Continue gabapentin Neurology evaluated --HTN Moderate control, continue current antihypertensives As needed medications --Rhabdomyolysis; Improved from 95,000 CK -1001 week ago Closely monitor IV hydration --acute kidney injury with vasomotor nephropathy now resolved Monitor renal function Avoid nephrotoxin. gentle hydration as needed Discharge planning per case management Detailed wound care instructions to the patient/family at the time of discharge. Possible discharge in 1 to 2 days after patient/family are educated by the wound care personal Case management is assisting Brief note and daily Hospital course; Hospital course to date: 12/21: Venous ultrasound shows no DVT, Vascular surgery consulted who performed a fasciotomy and plan to transfer patient to IM post intervention. Neurology consulted 12/22: Transfer to ICU, GI and neurology consulted. 12/23: Patient will be transferred back to the floor from ICU. Her liver enzymes and creatinine are trending down. Will be started on gabapentin per neurology recommendations and antibiotics discontinued. 12/24: Continue supportive care. CPK slowly improving. Vascular plans for closure of fasciotomy early next week. PT OT evaluation and treatment closure done. Continue wound management. No evidence of withdrawal noted at this time. Continue to monitor LFTs which are also slightly improving. Plan discussed in detail with the patient who verbalized understanding 12/25: Patient seen and examined clinically stable continues to show some improvement. Closure of fasciotomy planned for tomorrow. Renal function is improving. CK ordered and pending 12/26: Patient seen and examined, wbc mildly elevated likely secondary to steroids, will change to po for two additional days and stop, benefit probably already achieved, continue wound dressing, sensory function improved, awaiting wound vac and closure. Patient advised on clinically progress. 12/27: Patient seen and examined awaiting her vascular surgery for closure of fasciotomy. CK is decreasing less than 9000 today. We will continue aggressive IV fluids until we have the resolution below 5000. LFTs on the downward trend also. Leukocytosis appears to have peaked steroids was changed to oral for 2 additional days today is 1 of 2.. Plan of care discussed in detail with the p atient who verbalized understanding. 12/28: Left lower extremity compartment syndrome status post fasciotomies. Cause is still unclear and may represent some allergic reaction. Motor function is unchanged from original exam. Sensory function has improved with full sensation of the foot.vascular surgery to place wound vacs on the leg today. CK improved to the 8000 range today 12/29: Patient underwent excisional debridement of muscle and soft tissue from left leg wound yesterday. Patient also had wound VAC placement left leg fasciotomy incisions. The patient had moderate amount of superficial necrotic muscle in the anterior lateral compartments with minimal amount of superficial necrotic muscle in the posterior compartment. Follow-up culture results. CK levels have improved to 6900 range. AST/ALT continue to trend downward. 12/30: I discussed the case with Dr. Lopez who recommends home wound VAC as well as physical therapy. I also discussed these needs with case management who was attempting to arrange for discharge planning. CK continues to improve with levels in the 4000 range. 12/31: Still awaiting for home wound VAC arrangements to be made. Leukocytosis is much improved down to 13,900 today. LFTs continue to trend down to normal range. CK levels still in the 4000 range. Nephrology has signed off. Anticipate discharge later today or in a.m. 01/01: Still awaiting for home wound VAC arrangements to be made. Laboratories continue to include including LFTs, CK and leukocytosis. 01/02: Still awaiting for home wound VAC arrangements to be made. 01/03: Patient had an episode of syncope while working with PT today. Nurse reports patient lost consciousness for a few seconds and was helped back to the bed. Patient's blood pressure was noted to be hypotensive/orthostatic. We will bolus 500 normal saline IV fluid and monitor orthostatics. Case management reports that wound VAC should be delivered today. LFTs continue to trend down to normal range. CK levels still in the 2000 range. Nephrology has signed off. Anticipate discharge in a.m. given the syncope and once wound VAC arranged. Patient with low-grade temp. We will monitor. 01/04; patient is anxious to go home, wound VAC is delivered to the bedside, continue wound care Multiple social issues, DC planning per case management, left lower extremity Doppler negative for DVT 01/05; discharge planning, multiple social issues 01/06; continue current management, wound VAC in place, DC planning issues 01/07; discharge planning per case management, setting up wound VAC, setting up outpatient wound care Setting up follow-up visits with physicians, patient has multiple social issues and no payer source Continue current management discharge when medically stable 01/08; patient's LFTs are trending down, continue current management Wound VAC care, wound VAC change per instructions, wound care as indicated Discharge planning per case management 01/09; patient is medically stable for discharge Awaiting discharge planning coordinating with wound VAC and wound care Post discharge follow-up visit with vascular Dr. Lenard Kimble on 01/28/2020 at 10 AM 01/10; vascular /IR Dr. Swann evaluation and recommendations noted and appreciated Patient's wound had some peculiar infection smell, started on doxycycline And recommended aggressive wound care. 01/11; iron branch operations manager talk to Dr. Swann regarding the treatment and discharge planning Dr. Swann informed that wound care should follow regularly and aggressively manage the wounds And once the wounds show significant healing wound VAC can be placed and patient may be discharged home with home health. Outpatient wound clinic 3 times a week and follow-up with vascular IR per schedule 01/12: Continue dressing change per wound care. Patient initiated on doxycycline, surgical culture is growing bacillus. Discharge planning per vascular recommendation once wound VAC is placed. Continue supportive care. 01/13: Continue regular wound care, continue empiric antibiotic, wait on culture sensitivity. Discharge planning per vascular surgery. 01/14: continue empiric antibiotic, wait on culture sensitivity. Discharge planning per vascular surgery. Continue regular wound care, 01/15: Continue empiric antibiotics, wait for better wound healing to place wound VAC, plan to DC patient once wound VAC will be placed. consult surgery for debridement. 01/16: Discussed with Dr. Araya yesterday, if patient need any debridement possibly will be done on next week Monday. Continue wound care And antibiotics 01/17: Noted General surgery recommendation, patient wound is too large and deeply exposed to place on wound VAC. General surgery recommending regular wound care without wound VAC. Will await for vascular recommendation for discharge planning. 01/18; DC planning per case management, per vascular and general surgeon Multiple social issues 01/19; continue current management, DC planning per case management, patient is medically stable for discharge Multiple social issues 01/20; surgeon Dr. Araya and wound care have detailed instructions of caring for the wound of the left lower extremity As well as outpatient wound care follow-up. Wound care to explain in detail to the patient through the roof foreman And if possible give written instructions to the patient/family at discharge. Discharge in 1 to 2 days patient is stable History Interval history: I have seen and examined the patient at the bedside Patient's chart and medications reviewed Patient feels slightly better and anxious to go home Case management assisting with discharge planning Hospitalist Physical - Constitutional Vitals: Temp Pulse Resp BP Pulse Ox 97.9 F 82 20 94/55 98 01/20/22 11:41 01/20/22 11:41 01/20/22 11:53 01/20/22 11:41 01/20/22 11:53 General appearance: Present: no acute distress, well-nourished, obese - EENT Eyes: Present: PERRL, EOM intact - Neck Neck: Present: supple, normal ROM - Respiratory Respiratory effort: normal Respiratory: bilateral: diminished, negative: rales, rhonchi, wheezing - Cardiovascular Rhythm: regular Heart Sounds: Present: S1 & S2 - Extremities Extremities: no ischemia, No edema, abnormal (Left lower extremity elevated dressing in place) - Abdominal General gastrointestinal: soft, non-tender, non-distended, normal bowel sounds - Integumentary Integumentary: Present: clear, warm - Psychiatric Psychiatric: appropriate mood/affect, cooperative - Neurologic Neurologic: moves all extremities Results - Labs CBC & Chem 7: 01/17/22 04:25 01/20/22 04:41 Labs: Laboratory Last Values WBC 5.8 K/mm3 (4.5-11.0) 01/17/22 04:25 RBC 3.48 M/mm3 (3.65-5.03) L 01/17/22 04:25 Hgb 11.4 gm/dl (11.8-15.2) L 01/17/22 04:25 Hct 32.9 % (35.5-45.6) L 01/17/22 04:25 MCV 95 fl (84-94) H 01/17/22 04:25 MCH 33 pg (28-32) H 01/17/22 04:25 MCHC 35 % (32-34) H 01/17/22 04:25 RDW 13.4 % (13.2-15.2) 01/17/22 04:25 Plt Count 444 K/mm3 (140-440) H 01/17/22 04:25 Lymph % (Auto) 37.8 % (13.4-35.0) H 01/17/22 04:25 Glenn % (Auto) 13.4 % (0.0-7.3) H 01/17/22 04:25 Eos % (Auto) 1.9 % (0.0-4.3) 01/17/22 04:25 Baso % (Auto) 0.3 % (0.0-1.8) 01/17/22 04:25 Lymph # (Auto) 2.2 K/mm3 (1.2-5.4) 01/17/22 04:25 Glenn # (Auto) 0.8 K/mm3 (0.0-0.8) 01/17/22 04:25 Eos # (Auto) 0.1 K/mm3 (0.0-0.4) 01/17/22 04:25 Baso # (Auto) 0.0 K/mm3 (0.0-0.1) 01/17/22 04:25 Add Manual Diff Complete 12/30/21 04:49 Total Counted 100 12/30/21 04:49 Seg Neutrophils % 46.6 % (40.0-70.0) 01/17/22 04:25 Seg Neuts % (Manual) 83.0 % (40.0-70.0) H 12/30/21 04:49 Band Neutrophils % 2.0 % 12/30/21 04:49 Lymphocytes % (Manual) 5.0 % (13.4-35.0) L 12/30/21 04:49 Reactive Lymphs % (Man) 0 % 12/30/21 04:49 Monocytes % (Manual) 8.0 % (0.0-7.3) H 12/30/21 04:49 Eosinophils % (Manual) 0 % (0.0-4.3) 12/30/21 04:49 Basophils % (Manual) 0 % (0.0-1.8) 12/30/21 04:49 Metamyelocytes % 2.0 % 12/30/21 04:49 Myelocytes % 0 % 12/30/21 04:49 Promyelocytes % 0 % 12/30/21 04:49 Blast Cells % 0 % 12/30/21 04:49 Nucleated RBC % Not Reportable 12/30/21 04:49 Seg Neutrophils # 2.7 K/mm3 (1.8-7.7) 01/17/22 04:25 Seg Neutrophils # Man 17.1 K/mm3 (1.8-7.7) H 12/30/21 04:49 Band Neutrophils # 0.4 K/mm3 12/30/21 04:49 Lymphocytes # (Manual) 1.0 K/mm3 (1.2-5.4) L 12/30/21 04:49 Abs React Lymphs (Man) 0.0 K/mm3 12/30/21 04:49 Monocytes # (Manual) 1.6 K/mm3 (0.0-0.8) H 12/30/21 04:49 Eosinophils # (Manual) 0.0 K/mm3 (0.0-0.4) 12/30/21 04:49 Basophils # (Manual) 0.0 K/mm3 (0.0-0.1) 12/30/21 04:49 Metamyelocytes # 0.4 K/mm3 12/30/21 04:49 Myelocytes # 0.0 K/mm3 12/30/21 04:49 Promyelocytes # 0.0 K/mm3 12/30/21 04:49 Blast Cells # 0.0 K/mm3 12/30/21 04:49 WBC Morphology Not Reportable 12/30/21 04:49 Hypersegmented Neuts Not Reportable 12/30/21 04:49 Hyposegmented Neuts Rare 12/30/21 04:49 Hypogranular Neuts Not Reportable 12/30/21 04:49 Smudge Cells Not Reportable 12/30/21 04:49 Toxic Granulation Not Reportable 12/30/21 04:49 Toxic Vacuolation Not Reportable 12/30/21 04:49 Dohle Bodies Not Reportable 12/30/21 04:49 Pelger-Huet Anomaly Not Reportable 12/30/21 04:49 [place] Rods Not Reportable 12/30/21 04:49 Platelet Estimate Consistent w auto 12/30/21 04:49 Clumped Platelets Not Reportable 12/30/21 04:49 Plt Clumps, EDTA Not Reportable 12/30/21 04:49 Large Platelets Rare 12/30/21 04:49 Giant Platelets Not Reportable 12/30/21 04:49 Platelet Satelliting Not Reportable 12/30/21 04:49 Plt Morphology Comment Not Reportable 12/30/21 04:49 RBC Morphology Not Reportable 12/30/21 04:49 Dimorphic RBCs Not Reportable 12/30/21 04:49 Polychromasia Not Reportable 12/30/21 04:49 Hypochromasia Not Reportable 12/30/21 04:49 Poikilocytosis Not Reportable 12/30/21 04:49 Anisocytosis Rare 12/30/21 04:49 Microcytosis Not Reportable 12/30/21 04:49 Macrocytosis Rare 12/30/21 04:49 Spherocytes Not Reportable 12/30/21 04:49 Pappenheimer Bodies Not Reportable 12/30/21 04:49 Sickle Cells Not Reportable 12/30/21 04:49 Target Cells Not Reportable 12/30/21 04:49 Tear Drop Cells Not Reportable 12/30/21 04:49 Ovalocytes Not Reportable 12/30/21 04:49 Helmet Cells Not Reportable 12/30/21 04:49 Parsons-Anthon Bodies Not Reportable 12/30/21 04:49 [place] Rings Not Reportable 12/30/21 04:49 Sebastien Cells Not Reportable 12/30/21 04:49 Bite Cells Not Reportable 12/30/21 04:49 Crenated Cell Not Reportable 12/30/21 04:49 Elliptocytes Not Reportable 12/30/21 04:49 Acanthocytes (Spur) Not Reportable 12/30/21 04:49 Rouleaux Not Reportable 12/30/21 04:49 Hemoglobin C Crystals Not Reportable 12/30/21 04:49 Schistocytes Not Reportable 12/30/21 04:49 Malaria parasites Not Reportable 12/30/21 04:49 [place] Bodies Not Reportable 12/30/21 04:49 Hem Pathologist Commnt No 12/30/21 04:49 PT 13.4 Sec. (12.2-14.9) 12/21/21 13:30 INR 0.92 (0.87-1.13) 12/21/21 13:30 APTT 25.8 Sec. (24.2-36.6) 12/21/21 13:30 Sodium 135 mmol/L (137-145) L 01/20/22 04:41 Potassium 4.1 mmol/L (3.6-5.0) 01/20/22 04:41 Chloride 98.3 mmol/L (98-107) 01/20/22 04:41 Carbon Dioxide 28 mmol/L (22-30) 01/20/22 04:41 Anion Gap 13 mmol/L 01/20/22 04:41 BUN 11 mg/dL (9-20) 01/20/22 04:41 Creatinine 0.7 mg/dL (0.8-1.3) L 01/20/22 04:41 Estimated GFR > 60 ml/min 01/20/22 04:41 BUN/Creatinine Ratio 16 % 01/20/22 04:41 Glucose 102 mg/dL (75-100) H 01/20/22 04:41 POC Glucose 121 mg/dL (70-105) H 01/19/22 11:26 Lactic Acid 1.40 mmol/L (0.7-2.0) 12/21/21 13:30 Calcium 9.3 mg/dL (8.4-10.2) 01/20/22 04:41 Phosphorus 2.80 mg/dL (2.5-4.5) 12/24/21 05:17 Magnesium 1.90 mg/dL (1.7-2.3) 01/20/22 04:41 Total Bilirubin 0.50 mg/dL (0.1-1.2) 01/12/22 06:06 Direct Bilirubin < 0.2 mg/dL (0-0.2) 01/03/22 04:00 Indirect Bilirubin 0.3 mg/dL 01/03/22 04:00 AST 29 units/L (5-40) 01/12/22 06:06 ALT 55 units/L (7-56) 01/12/22 06:06 Alkaline Phosphatase 81 units/L (35-129) 01/12/22 06:06 Ammonia 37.0 umol/L (25-60) 12/23/21 04:49 Total Creatine Kinase 125 units/L (55-170) 01/20/22 04:41 Total Protein 6.4 g/dL (6.3-8.2) 01/12/22 06:06 Albumin 2.9 g/dL (3.9-5) L 01/12/22 06:06 Albumin/Globulin Ratio 0.8 % 01/12/22 06:06 Amylase 25 units/L (27-131) L 12/23/21 04:49 Lipase 10 units/L (13-60) L 12/23/21 04:49 Coronavirus (PCR) Negative (Negative) 12/22/21 11:40 Hepatitis A IgM Ab Nonreactive (NonReactive) 12/21/21 13:30 Hep Bs Antigen Non-reactive (Negative) 12/21/21 13:30 Hep B Core IgM Ab Non-reactive (NonReactive) 12/21/21 13:30 Hepatitis C Antibody Non-reactive (NonReactive) 12/21/21 13:30 HIV 1&2 Antibody Rapid Non react (Non React) 12/22/21 16:42 HIV P24 Antigen Non react (Non React) 12/22/21 16:42 Kaur/IV: Voiding Method Urinal Active Medications - Current Medications Current Medications: Generic Name Dose Route Start Last Admin Trade Name Freq PRN Reason Stop Dose Admin Acetaminophen 650 mg 01/04/22 22:14 01/12/22 01:36 Acetaminophen 325 Mg Tab PO 650 mg Q6H PRN Administration Pain, Mild (1-3) Albuterol 2.5 mg 12/21/21 06:15 Albuterol 2.5 Mg/3 Ml Nebu IH Q3HRT PRN Shortness Of Breath Diphenhydramine HCl 25 mg 12/21/21 06:24 01/10/22 18:40 Diphenhydramine 50 Mg/Ml Vial IV 25 mg Q6H PRN Administration Skin Irritation Docusate Sodium 100 mg 12/23/21 22:00 01/20/22 09:02 Docusate Sodium 100 Mg Cap PO 100 mg BID VLADIMIR Administration Famotidine 20 mg 12/26/21 10:00 01/20/22 09:02 Famotidine 20 Mg Tab PO 20 mg BID VLADIMIR Administration Gabapentin 300 mg 01/05/22 08:00 01/20/22 07:56 Gabapentin 300 Mg Cap PO 300 mg TID@0800,1600,2200 VLADIMIR Administration Heparin Sodium (Porcine) 5,000 unit 12/21/21 10:00 01/20/22 09:00 Heparin 5,000 Unit/1 Ml Vial SUB-Q 5,000 unit Q12HR VLADIMIR Administration Hydralazine HCl 10 mg 12/22/21 18:31 12/22/21 18:50 Hydralazine 20 Mg/1 Ml Inj IV 10 mg Q3HR PRN Administration Hypertension Hydromorphone HCl 0.5 mg 12/21/21 06:15 01/20/22 09:01 Hydromorphone 1 Mg/1 Ml Inj IV 0.5 mg Q3H PRN Administration Pain , Severe (7-10) Ondansetron HCl 4 mg 12/21/21 06:15 01/12/22 22:29 Ondansetron 4 Mg/2 Ml Inj IV 4 mg Q8H PRN Administration Nausea And Vomiting Oxycodone/Acetaminophen 1 tab 01/07/22 10:57 01/19/22 01:30 Oxycodone /Acetaminophen 5-325mg Tab PO 1 tab Q6H PRN Administration Pain, Moderate (4-6) Sodium Chloride 10 ml 12/21/21 10:00 01/20/22 09:03 Sodium Chloride 0.9% 10 Ml Flush Syringe IV 10 ml BID VLADIMIR Administration Sodium Chloride 10 ml 12/21/21 06:15 01/12/22 01:33 Sodium Chloride 0.9% 10 Ml Flush Syringe IV 10 ml PRN PRN Administration LINE FLUSH Sodium Chloride 500 ml 01/10/22 19:10 01/10/22 19:32 Sodium Chloride 0.9% Irr 500 Ml Bottle IR 500 ml DIRECT PRN Administration Wound Care Sodium Hypochlorite 1 applic 01/11/22 13:00 01/20/22 09:03 Sodium Hypochlorite, Dakin's Full Strength (0.5%) 473 Ml Topical Soln TP 1 1000units DAILY VLADIMIR Administration Valsartan 160 mg 12/22/21 22:00 01/20/22 09:02 Valsartan 160mg Tab PO 160 mg DAILY VLADIMIR Administration Nutrition/Malnutrition Assess - Dietary Evaluation Nutrition/Malnutrition Findings: Nutrition Notes Start: 12/28/21 16:45 Freq: Status: Active Protocol: Document 01/06/22 14:21 OPAL (Rec: 01/06/22 14:46 OPAL [id number]) Nutrition Notes Initial or Follow up Reassessment Current Diagnosis Hypertension Other Pertinent Diagnosis Rabdomyolysis, Liver Failure, s/p L-LE 4 Compartment Fasciotomy w/Debridem. Current Diet Regular Diet + Dietary Supplements. (since B 12/29). Labs/Tests 01/06: BUN 5, Crea 0.7. Pertinent Medications 01/06: Nutritionally unremarkable. Height 5 ft 6 in Weight 86.183 kg [place] Body Weight (kg) 64.54 BMI 30.7 Weight change and time frame No body weight change reporterd in 9 days. Weight Status Obese Subjective/Other Information RD consult for routine F/U on dietary advancement. Pt's PO intake of meals has been Good (100%), according to ADL notes. Pt is on Room Air, O2 saturation @ 96%, according to Physical Assessment History notes. Pt presents L-LE Pitting Edema 2+, according to Physical Assessment History notes. Pt presents L-LE Vascular Wound with WoundVAC since , according to Physical Assessment History notes. Event on 01/03, Pt suffered a syncope during PT session, according to Progress notes. Pt is clearedd for discharge, it is pending due to several social issues, according to Progress notes. Percent of energy/protein needs met: Prescribed Regular Diet provides for energy/protein needs (2,289 Kcal/89 g) during LOS Burn Absent Trauma Absent GI Symptoms None Food Allergy No Skin Integrity/Comment L-LE Vascular Wound Current % PO Good (75-100%) Minimum of two criteria No #1 Nutrition Diagnosis Increased nutrient needs ( specify in comment below) Comments: Protein to support wound healing processes. Diagnosis Progress(for reassessment Continues documentation) Is patient on ventilator? No Is Patient Ambulatory and/or Out of Bed No REE-([facility]-confined to bed) 2083.920 Kcal/Kg value to use for calculation 19 Approximate Energy Requirements Using 1637 kcal/Kg Calculation Used for Recommendations Kcal/kg Additional Notes Protein: 1.25-1.5 g/Kg AdjBW; 85-114 g/day. Fluids: 1 ml/Kcal, or as per MD. Nutrition Intervention Change Diet Order: Continue Regular Diet. Add Supplement/Snack (indicate name/kcal Continue 28.8 g pkt Calvin; BID /protein ) . Provides kCal: 190 Provides Protein (gm) 5 Goal #1 Support, through dietary supplementation, wound healing processes during LOS. Goal #2 Adjust the dietary intervention to better serve Pt's needs and clinical conditions during LOS. Goal #3 Maintain body weight within +/ -3% of admission body weight during LOS. Revisit per MD consult or patient Sign Off request: Additional Comments Continue monitoring food tolerance, %PO intake of meals , and BM.
--- NOTE | 2022-01-20 16:17 | Event Note ---
Date: 01/20/22 Wound care personnel came and did the wound dressing and educated the patient and the family member Patient will be given wound dressing material by the nurse. Patient will be scheduled to see outpatient wound care. We will follow with Dr. Lenard Kimble on 01/27/2022 Discussed with case management Ms. Dennison who in turn discussed with Ms lipscomb, possible discharge home tomorrow If everything is set up and if patient is stable.
--- NOTE | 2022-01-20 16:27 | Discharge Summary ---
Providers - Providers Date of Admission: 12/21/21 06:15 Date of discharge: 01/20/22 Attending physician: ALEXANDRA LUIS 12/21/21 06:15 Consult to Physician [CONS] Routine Comment: Dr. Kimble spoke with Dr. Araya @ [phone] Consulting Provider: KRISH ARAYA Physician Instructions: Reason For Exam: Left leg pain cellulitis 12/21/21 11:44 Consult to Physician [CONS] Routine Comment: Consulting Provider: SCOTT CONLEY Physician Instructions: Reason For Exam: LtLE swelling/mottling/unable to move toes 12/21/21 12:18 Consult to Physician [CONS] Routine Comment: Pt injected penicillin Lt. thigh/allergic reaction Consulting Provider: TAHIR MORSE Physician Instructions: Reason For Exam: Neuropathy Lt lower extremity/possible foot drop 12/22/21 08:31 Consult to Physician [CONS] Routine Comment: Consulting Provider: MOHAN KONG Physician Instructions: Reason For Exam: Acute liver failure/compartment syndrome 12/22/21 18:28 Consult to Physician [CONS] Routine Comment: Consulting Provider: NYASIA MACIAS Physician Instructions: Reason For Exam: Severe rhabdo dialysis/compartmental syndrome 12/28/21 19:02 Consult to Wound/ET Nurse [CONS] Routine Reason For Exam: wound vac management 12/30/21 10:11 Consult to Case Management [CONS] Routine Services Needed at Discharge: Wound Vac Physical Therapy Notified:: CM 12/31/21 13:34 Physical Therapy Evaluation and Treat [CONS] Routine Comment: Patient s/p L leg fasciotomy Reason For Exam: Eval and treat 12/31/21 13:35 Consult to Ice Cream Vendor [CONS] Routine Reason For Exam: AFO Brace 01/03/22 14:17 Consult to Wound/ET Nurse [CONS] Stat Reason For Exam: wound vac changes 01/15/22 19:39 Consult to Physician [CONS] Routine Comment: Consulting Provider: KRISH ARAYA Physician Instructions: Reason For Exam: wound debridement Primary care physician: MANAGER [employer]ING Hospitalization Condition: Stable Disposition: 06 HOME HEALTH CARE SERVICE Core Measure Documentation - Palliative Care Palliative Care/ Comfort Measures: Not Applicable - Core Measures Any of the following diagnoses?: none Exam - Constitutional Vitals: Temp Pulse Resp BP Pulse Ox 97.9 F 82 20 94/55 98 01/20/22 11:41 01/20/22 11:41 01/20/22 11:53 01/20/22 11:41 01/20/22 11:53 Plan Activity: advance as tolerated, fall precautions Diet: regular Follow up with: PRIMARY CARE, [Primary Care Provider] - 3-5 Days
--- NOTE | 2022-01-20 16:34 | Discharge Summary ---
Providers - Providers Date of Admission: 12/21/21 06:15 Attending physician: ALEXANDRA LUIS 12/21/21 06:15 Consult to Physician [CONS] Routine Comment: Dr. Cisse spoke with Dr. Araya @ [phone] Consulting Provider: KRISH ARAYA Physician Instructions: Reason For Exam: Left leg pain cellulitis 12/21/21 11:44 Consult to Physician [CONS] Routine Comment: Consulting Provider: SCOTT CONLEY Physician Instructions: Reason For Exam: LtLE swelling/mottling/unable to move toes 12/21/21 12:18 Consult to Physician [CONS] Routine Comment: Pt injected penicillin Lt. thigh/allergic reaction Consulting Provider: TAHIR MORSE Physician Instructions: Reason For Exam: Neuropathy Lt lower extremity/possible foot drop 12/22/21 08:31 Consult to Physician [CONS] Routine Comment: Consulting Provider: MOHAN KONG Physician Instructions: Reason For Exam: Acute liver failure/compartment syndrome 12/22/21 18:28 Consult to Physician [CONS] Routine Comment: Consulting Provider: NYASIA MACIAS Physician Instructions: Reason For Exam: Severe rhabdo dialysis/compartmental syndrome 12/28/21 19:02 Consult to Wound/ET Nurse [CONS] Routine Reason For Exam: wound vac management 12/30/21 10:11 Consult to Case Management [CONS] Routine Services Needed at Discharge: Wound Vac Physical Therapy Notified:: MAXI 12/31/21 13:34 Physical Therapy Evaluation and Treat [CONS] Routine Comment: Patient s/p L leg fasciotomy Reason For Exam: Eval and treat 12/31/21 13:35 Consult to Dobby Looms Pegger [CONS] Routine Reason For Exam: AFO Brace 01/03/22 14:17 Consult to Wound/ET Nurse [CONS] Stat Reason For Exam: wound vac changes 01/15/22 19:39 Consult to Physician [CONS] Routine Comment: Consulting Provider: KRISH ARAYA Physician Instructions: Reason For Exam: wound debridement Primary care physician: FANCY PACKER Hospitalization Reason for admission: Cellulitis leg/compartment syndrome left lower extremity Condition: Stable Hospital course: This is a 36 year old transgendered female undergoing gender transformation with silicone injection to buttocks ([place] 2016) and breast implants, heavy drinker on the weekends (bottle of vodka) who presented to [facility] on 12/21 because of adverse drug reaction after reportedly self administration of ro cephin and PCN for sore throat. Patient reportedly collapsed while checking in to the emergency department, had complains of severe 10 out of 10 pain in the left thigh and had noticeable mottling of skin on the thigh and left lower abdomen. Patient underwent a CT of the left leg which showed possible cellulitis with no drainable fluid collection and was started on empiric antibiotics. Patient admitted to the hospital service with diagnosis of acute liver failure, rhabdomyolysis, and compartment syndrome, evaluated by vascular/IR, s/p 4 compartment fasciotomy to left lower extremity. Patient received antibiotics, wound care, wound VAC treatment and was planning to be discharged However developed a wound infection, wound VAC was removed, medical personnel aggressively treating the patient. Discharge was held. Outpatient wound care was scheduled, wound care personal have evaluated on 01/18/2022, request wound care personal to educate the patient and the family in detail with the instructions[preferably written instructions] prior to discharge if possible. Assessment and plan; --Compartment syndrome to LLE -Vascular surgery consulted, appreciate recommendations -s/p self admin of IM abx to [facility] -c/o pain, decreased sensation, pulses were dopplarable, paralysis, mottled skin -s/p 4 compartment fasciotomy on 12/21 with vascular surgery -Bilateral lower extremity Doppler ultrasound showed no DVT -Left lower extremity CT with contrast showed appearance of posterior soft tissue complex cellulitis with small subcutaneous lymph nodes, no drainable fluid collections present, contusion could have similar appearance -Bilateral lower extremity arterial duplex showed no significant lower extremity peripheral artery disease -Normal ABIs Patient received wound VAC, with aggressive management and frequent changing. And with supportive care Patient was being prepared to discharge with home health and outpatient wound care 3 times a week. However patient's wound got significantly infected, wound VAC was removed, wound care personal consulted and they are aggressively treating the wounds. Once the wound infection improves, patient may receive wound VAC and then patient may be discharged home with follow-up visit with Dr. aJiden Cisse Outpatient wound care 3 times a week --Peripheral neuropathy Continue gabapentin Neurology evaluated --HTN Moderate control, continue current antihypertensives As needed medications --Rhabdomyolysis; Improved from 95,000 CK -1001 week ago Closely monitor IV hydration --Severe protein calorie malnutrition; Nutrition supplements, supportive care --severe hypoalbuminemia albumin 2.9 Nutrition supplements and supportive care --Obesity; BMI 30.7 Advised weight reduction when medically stable --acute kidney injury with vasomotor nephropathy now resolved Monitor renal function Avoid nephrotoxin. gentle hydration as needed Discharge planning per case management Detailed wound care instructions to the patient/family at the time of discharge. Possible discharge in 1 to 2 days after patient/family are educated by the wound care personal Case management is assisting Disposition: HOME HEALTH CARE SERVICE Final Discharge Diagnosis (Prints w/discharge instructions): Left lower extremity compartment syndrome. 4 compartment fasciotomy. Slowly healing wound left lower extremity. Peripheral neuropathy. Hypertension well controlled. Rhabdomyolysis improved. Acute kidney injury vasomotor nephropathy resolved. Obesity BMI 30. Severe protein calorie malnutrition. Severe hypoalbuminemia; albumin 2.9 Time spent for discharge: 40 min Core Measure Documentation - Palliative Care Palliative Care/ Comfort Measures: Not Applicable - Core Measures Any of the following diagnoses?: none Exam - Constitutional Vitals: Temp Pulse Resp BP Pulse Ox 97.9 F 82 20 94/55 98 01/20/22 11:41 01/20/22 11:41 01/20/22 11:53 01/20/22 11:41 01/20/22 11:53 Plan Activity: advance as tolerated, fall precautions Diet: regular Wound: per your surgeon's advice, per wound nurse instructions Additional Instructions: Advised to keep the wound clean and dry. Follow the wound care nurse instructions. Advised to follow wound care clinic per schedule after discharge. Advised to follow vascular surgeon Dr. Jaiden Cisse on 01/27/2022. If you have worsening symptoms contact MD or go to the nearest emergency room as needed Follow up with: PRIMARY MD JOYCE [Primary Care Provider] - 3-5 Days KRISH ARAYA MD [Staff Physician] - 10 Days JAIDEN CISSE MD [Staff Physician] - 01/27/22 10:00 am Prescriptions: Docusate Sodium [Colace CAP] 100 mg PO BID #30 capsule Sodium Hypochlorite [Dakin's Full Strength] 1 applic TP DAILY #2 bottle Valsartan [Diovan] 160 mg PO DAILY #30 tablet Gabapentin 300 mg PO TID@0800,1600,2200 #90 capsule Famotidine [Pepcid] 20 mg PO BID #30 tablet oxyCODONE /ACETAMINOPHEN [Percocet 5/325 mg] 1 tab PO Q6H PRN #30 tablet PRN Reason: Pain, Moderate (4-6)
[2022-01-21] MEDS: HYDROmorphone 1 MG/1 ML INJ IV PRN ×2 (05:20→12:13)
[2022-01-21 05:29] VITALS: BP 103/70
[2022-01-21] MEDS: GABAPENTIN 300 MG CAP PO SCH (08:49)
[2022-01-21] MEDS: HEPARIN 5,000 UNIT/1 ML VIAL SUB-Q SCH (12:17)
[2022-01-21] MEDS: VALSARTAN 160MG TAB PO SCH (12:25)
--- NOTE | 2022-01-21 12:45 | Discharge Summary ---
Providers - Providers Date of Admission: 12/21/21 06:15 Date of discharge: 01/21/22 Attending physician: PAM SPARKS MD 12/21/21 06:15 Consult to Physician [CONS] Routine Comment: Dr. Cisse spoke with Dr. Araya @ [phone] Consulting Provider: KRISH ARAYA Physician Instructions: Reason For Exam: Left leg pain cellulitis 12/21/21 11:44 Consult to Physician [CONS] Routine Comment: Consulting Provider: SCOTT CONLEY Physician Instructions: Reason For Exam: LtLE swelling/mottling/unable to move toes 12/21/21 12:18 Consult to Physician [CONS] Routine Comment: Pt injected penicillin Lt. thigh/allergic reaction Consulting Provider: TAHIR MORSE Physician Instructions: Reason For Exam: Neuropathy Lt lower extremity/possible foot drop 12/22/21 08:31 Consult to Physician [CONS] Routine Comment: Consulting Provider: MOHAN KONG Physician Instructions: Reason For Exam: Acute liver failure/compartment syndrome 12/22/21 18:28 Consult to Physician [CONS] Routine Comment: Consulting Provider: NYASIA MACIAS Physician Instructions: Reason For Exam: Severe rhabdo dialysis/compartmental syndrome 12/28/21 19:02 Consult to Wound/ET Nurse [CONS] Routine Reason For Exam: wound vac management 12/30/21 10:11 Consult to Case Management [CONS] Routine Services Needed at Discharge: Wound Vac Physical Therapy Notified:: MAXI 12/31/21 13:34 Physical Therapy Evaluation and Treat [CONS] Routine Comment: Patient s/p L leg fasciotomy Reason For Exam: Eval and treat 12/31/21 13:35 Consult to Laundry Tech [CONS] Routine Reason For Exam: AFO Brace 01/03/22 14:17 Consult to Wound/ET Nurse [CONS] Stat Reason For Exam: wound vac changes 01/15/22 19:39 Consult to Physician [CONS] Routine Comment: Consulting Provider: KRISH ARAYA Physician Instructions: Reason For Exam: wound debridement Primary care physician: [employer]AFF Hospitalization Reason for admission: acute encephalopathy Condition: Stable Hospital course: This is a 36 year old transgendered female undergoing gender transformation with silicone injection to buttocks ([place] 2016) and breast implants, heavy drinker on the weekends (bottle of vodka) who presented to [facility] on 12/21 because of adverse drug reaction after reportedly self administration of rocephin and PCN for sore throat. Patient reportedly collapsed while checking in to the emergency department, had complains of severe 10 out of 10 pain in the left thigh and had noticeable mottling of skin on the thigh and left lower abdomen. Patient underwent a CT of the left leg which showed possible cellulitis with no drainable fluid collection and was started on empiric antibiotics. Patient admitted to the hospital service with diagnosis of acute liver failure, rhabdomyolysis, and compartment syndrome, evaluated by vascular/IR, s/p 4 compartment fasciotomy to left lower extremity. Patient received antibiotics, wound care, wound VAC treatment and was planning to be discharged However developed a wound infection, wound VAC was removed, medical personnel ag gressively treating the patient. Discharge was held. Outpatient wound care was scheduled, wound care personal have evaluated on 01/18/2022. Once wound care provided instructions to the patient and the family in detail, patient was discharged home in care of family. Disposition: HOME HEALTH CARE SERVICE Final Discharge Diagnosis (Prints w/discharge instructions): Compartment syndrome to the left lower extremity. Peripheral nephropathy. Hypertension. Rhabdomyolysis. Acute kidney injury secondary to vasomotor nephropathy Time spent for discharge: 35 minutes Core Measure Documentation - Palliative Care Palliative Care/ Comfort Measures: Not Applicable - Core Measures Any of the following diagnoses?: none Exam - Physical Exam Narrative exam: GENERAL: Well-developed well-nourished. In no acute distress. HEENT: Normocephalic. Atraumatic. NECK: Supple. CHEST/LUNGS: CTAB on room air HEART/CARDIOVASCULAR: RRR. No murmur, rubs or gallops appreciated. ABDOMEN: +BS. NT/ND. NEURO: No focal motor deficit. Follows all commands. MUSCULOSKELETAL: No joint effusion EXTREMITIES: LLE gwen bandage intact. No cyanosis, clubbing or edema. PSYCH: Cooperative. - Constitutional Vitals: Temp Pulse Resp BP Pulse Ox 97.7 F 83 19 103/70 98 01/21/22 05:28 01/21/22 05:28 01/21/22 05:28 01/21/22 05:28 01/21/22 05:28 Plan Care Plan Goals: Please make sure to follow-up in the wound care clinic as instructed. Your first appointment in 02/04/2022 @10:15am. Please follow the detailed instructions for wound care. You have an appointment with the vascular surgeon January 27 at 10 AM. Please try your best to make this appointment. Also, establish care with a primary care provider for management of your medications. Follow up with: KRISH ARAYA MD [Staff Physician] - 10 Days PRIMARY CARE, [Primary Care Provider] - 3-5 Days JAIDEN CISSE MD [Staff Physician] - 01/27/22 10:00 am Prescriptions: Docusate Sodium [Colace CAP] 100 mg PO BID #30 capsule Sodium Hypochlorite [Dakin's Full Strength] 1 applic TP DAILY #2 bottle Valsartan [Diovan] 160 mg PO DAILY #30 tablet Gabapentin 300 mg PO TID@0800,1600,2200 #90 capsule Famotidine [Pepcid] 20 mg PO BID #30 tablet oxyCODONE /ACETAMINOPHEN [Percocet 5/325 mg] 1 tab PO Q6H PRN #30 tablet PRN Reason: Pain, Moderate (4-6)
[2022-01-21] MEDS: FAMOTIDINE 20 MG TAB PO SCH (12:49)
[2022-01-21] MEDS: oxyCODONE /ACETAMINOPHEN 5-325MG TAB PO PRN (15:40)
== END 2022-01-21 16:00 | disposition home health service (06) | DRG 981 ==
LOC: EDSEX → ED 23:10 → 3A 12-21 06:15 → CC1 12-22 17:52 → 3A 12-23 22:04
PROVIDERS: ADMIT Hospitalist; ATTEND Student in an Organized Health Care Education/Training Program
PROC: 0KNR0ZZ Release Left Upper Leg Muscle, Open Approach (ICD-10-PCS; principal; 2021-12-21)
PROC: 0KNR0ZZ Release Left Upper Leg Muscle, Open Approach (ICD-10-PCS; 2021-12-28)
DX: T79.A22A Traumatic compartment syndrome of left lower extremity, initial encounter (principal); K72.00 Acute and subacute hepatic failure without coma; N17.0 Acute kidney failure with tubular necrosis; E43 Unspecified severe protein-calorie malnutrition; M62.82 Rhabdomyolysis; L03.116 Cellulitis of left lower limb; Z20.822 Contact with and (suspected) exposure to COVID-19; G62.9 Polyneuropathy, unspecified; R74.01 Elevation of levels of liver transaminase levels; X58.XXXA Exposure to other specified factors, initial encounter; E88.09 Other disorders of plasma-protein metabolism, not elsewhere classified; I10 Essential (primary) hypertension; E83.51 Hypocalcemia; E66.9 Obesity, unspecified; Z71.3 Dietary counseling and surveillance; Z79.899 Other long term (current) drug therapy; Z68.30 Body mass index [BMI] 30.0-30.9, adult; Y93.89 Activity, other specified; Y92.89 Other specified places as the place of occurrence of the external cause; Y99.8 Other external cause status; Z88.0 Allergy status to penicillin; Z88.1 Allergy status to other antibiotic agents
CPT/HCPCS: 36415; 76700; 80048; 80053; 80074; 80076; 82140; 82150; 82248; 82550; 82962; 83690; 83735; 84100; 85007; 85014; 85018; 85025; 85027; 85610; 85730; 87040; 87086; 87116; 87806; 93922; 93925; 94640; 96365; 96367; 96375; 96376; 99285; G0378; J1815; J3490; J7121; J0360; J1100; J1170; J1200; J1644; J1940; J1956; J2250; J2270; J2370; J2405; J2543; J2704; J2710; J2930; J7030; J7040; J7050; J7120; Q9967; U0003